=== PATIENT | male | born 1945 | race Caucasian/White ===

== ENCOUNTER → 2017-10-14 11:51 | Outpatient (CLI) | payer MEDICARE, OTHER, SELFPAY ==
--- NOTE | 2017-10-14 11:53 | US_ITS ---
STUDY: SUPERFICIAL ULTRASOUND - RIGHT CERVICAL REGION. REASON FOR EXAM: Male, 72 years old. Swelling of the right-sided and neck. TECHNIQUE: A superficial ultrasound was performed with real-time and static rodriguez-scale imaging. COMPARISON: None. FINDINGS: Multiple images were obtained. There is evidence of a 7 mm x 6 mm x 3 mm benign appearing lymph node. No mass lesion is seen. US/Head/Neck Soft Tissue IMPRESSION: 7 mm x 6 mm x 3 mm benign-appearing right cervical lymph node. No other abnormality is seen. Electronically Signed: Maxi Austin MD at 15:47 EST Tel [phone], Service support ,
--- NOTE | 2017-10-14 11:54 | CDU_ITS ---
Reason For Study: I65.23 Rt. Velocities/BP Lt. Velocities/BP Prox CCA 116/17.6 cm/sec. Prox CCA 115/13.4 cm/sec. Mid CCA 110/13.5 cm/sec. Mid CCA 104/10.2 cm/sec. Dist CCA 80.9/16.4 cm/sec. Dist CCA 65.6/9.82 cm/sec. Prox ICA 115/25.8 cm/sec. Prox ICA 71.5/11.1 cm/sec. Mid ICA 101/18.2 cm/sec. Mid ICA 55.1/14.9 cm/sec. Dist ICA 101/21.7 cm/sec. Dist ICA 75.0/22.3 cm/sec. Rt. ICA/CCA = 1.0. Lt. ICA/CCA = .7. Prox ECA 127 cm/sec. Prox ECA 132 cm/sec. Rt. Vert. 44.0/12.3 cm/sec. Lt. Vert. 63.9/7.62 cm/sec. Right Extracranial There is heterogeneous, irregular atherosclerotic plaque noted in the right common carotid artery. There is heterogeneous, irregular atherosclerotic plaque noted in the right internal carotid artery. There is homogeneous, smooth atherosclerotic plaque noted in the right external carotid artery. Antegrade flow is noted in the right vertebral artery. Left Extracranial There is heterogeneous, irregular atherosclerotic plaque noted in the left common carotid artery. There is heterogeneous, irregular atherosclerotic plaque noted in the left internal carotid artery. There is heterogeneous, irregular atherosclerotic plaque noted in the left external carotid artery. Antegrade flow is noted in the left vertebral artery. Procedure Carotid Duplex [id number]. The exam was diagnostic. Exam performed in department. Interpretation Summary Heavy plaque burden is noted in the internal carotid arteries bilaterally. Mild (<50%) stenosis right extracranial internal carotid. Mild (<50%) stenosis left extracranial internal carotid. Flow within the vertebral arteries is antegrade bilaterally. Ordering Physician: Jonny Serrato Referring Physician: Jonny Serrato Performed By: Myron Fink, RVT
== END ==
PROVIDERS: Family Provider Internal Medicine; PCP Internal Medicine; Visit Provider Internal Medicine
DX: I65.23 Occlusion and stenosis of bilateral carotid arteries (principal); R22.9 Localized swelling, mass and lump, unspecified
CPT/HCPCS: 76536; 93880

== ENCOUNTER 2018-05-18 09:08 | Day surgery (SDC) | payer MEDICARE, OTHER, SELFPAY ==
[2018-05-18] VITALS (10 sets, daily range): BP systolic 121–184; BP diastolic 75–87; PULSE 68–79; RESP 15–20; TEMP 36.1–36.9; O2SAT 94–99; BMI 25.9
--- NOTE | 2018-05-18 09:45 | CT_ITS ---
CT/Abdomen/Pelvis without Cont IMPRESSION: There is a 2 mm and 5 mm obstructive calculi in the midportion of the right ureter causing right hydronephrosis and right hydroureter with the right perinephric fat stranding as well as a small amount of fluid in the posterior right pararenal space. Nonobstructive right intrarenal calculus. Electronically Signed: Maxi Austin MD at 11:10 EDT Tel [phone], Service support ,
[2018-05-18] MEDS: 0.9% Normal Saline 1,000 ML 1000 ML IV (10:14)
[2018-05-18] MEDS: proMETHazine 25 MG/ML Syringe 6.25 MG IV (10:14)
[2018-05-18 10:17] LABS: Absolute Lymphocyte Count 0.97 X10^3/ul (0.83-4.51); Absolute Neutrophil Count 7.7 X10^3/uL (2.0-7.7); Basophil# 0.02 X10^3/uL; Basophil% 0.2 % (0-1); Eosinophil# 0.11 X10^3/uL; Eosinophils% 1.2 % (0-5); Hematocrit 46.8 % (40-54); Lymphocyte # 0.97 X10^3/ul (4.0); Lymphocyte % 10.2 % (19-41); Mean Corp Hgb Conc 34.2 g/gl (32-36); Mean Corpuscular Hgb 32.1 pg (27.0-32.0); Mean Corpuscular Volume 93.8 fL (80-94); Mean Platelet Vol. 10.1 fl (6.2-12.0); Monocyte# 0.62 X10^3/uL; Monocyte% 6.5 % (0-10); Neutrophil # 7.74 X10^3/uL (2.7-7.7); Neutrophil % 81.8 % (47-70); Platelet Count 158 K/mm3 (150-450); RBC Distribution Width CV 13.1 % (11.6-14.6); RBC Distribution Width SD 44.3 fl (35.1-43.9); Red Blood Count 4.99 M/mm3 (4.6-6.2); White Blood Count 9.5 K/mm3 (4.4-11.0)
[2018-05-18 10:19] LABS: POSITIVE COUNT NO; POSITIVE DIFFERENTIAL NO; POSITIVE MORPHOLOGY NO
[2018-05-18 10:23] LABS: Anion Gap 10 (5-15); BUN 39 mg/dL (7-18); BUN/Creat Ratio 16.5 RATIO (10-20); Calcium,Total 9.7 mg/dL (8.5-10.1); Chloride 104 mmol/L (98-107); Creatinine, Serum 2.37 mg/dL (0.70-1.30); EST Glomerular Filtration Rate 29 mL/min (>60); Est Glom Filt Rate - Afr Amer 35 mL/min (>60); Estimated Creatinine Clearance 27.81 ml/min; Glucose 231 mg/dL (74-106); Potassium 5.3 mmol/L (3.5-5.1); Sodium Level 138 mmol/L (136-145)
[2018-05-18] MEDS: HYDROmorphone 0.5 MG/0.5 ML SYRINGE IV (10:29)
[2018-05-18 10:30] LABS: Color, Urine Yellow (Yellow); Glucose, Dipstick 250 mg/dl (Normal); Ketone-Dipstick Negative (Negative); Leukocyte Esterase-Dipstick 100 /ul (Negative); Nitrite-Dipstick Negative (Negative); Occult Blood-Urine 150 /ul (Negative); Protein-Dipstick 30 mg/dl (Negative); Specific Gravity, Urine 1.015 (1.002-1.030); Urine Bilirubin Dipstick Negative (Negative); Urine Clarity Clear (Clear); Urine Urobilinogen Normal (Normal)
--- NOTE | 2018-05-18 10:36 | ED.VISSUMM ---
- ER Visit Summary Date of Service: 05/18/18 Chief Complaint: Abdominal pain History of Present Illness: The patient is a 73 M presenting with right lower quadrant abdominal pain. Patient woke up this morning with moderate right lower quadrant abdominal pain. He has nausea and vomiting. Denies blood in his emesis. He denies diarrhea or constipation. Denies urinary complaints. Denies fever. Denies chest pain or shortness of breath. Physical Examination: Vitals are stable. Patient is afebrile. Alert no acute distress. HEENT exam is unremarkable. Neck is supple. Lungs are clear and equal bilaterally. Heart is regular rate and rhythm. Abdomen is soft right lower quadrant tenderness. Extremities are unremarkable. Skin is warm and dry. No focal neurologic deficit. Remainder of exam is unremarkable. Emergency Department Course and Treatment: Patient given Dilaudid, Phenergan IV. CBC unremarkable. Chemistries show potassium 5.3, glucose 231, BUN 39, creatinine 2.37. Urinalysis shows 5-10 red blood cells, 0-[address] flank shows there is a 2 mm and 5 mm obstructive calculi in the midportion of the right ureter causing right hydronephrosis and right hydroureter with the right perinephric fat stranding as well as a small amount of fluid in the posterior right pararenal space. Nonobstructive right intrarenal calculus. Lab work was obtained from his command post superintendent Dr. Mancilla's office. His creatinine on May 04, 2018 was 1.[address] Discuss[address] with Dr. Levy and he will take him to the operating room. Patient and family advised of this plan. Disposition: To OR Impression: Urolithiasis, acute kidney injury This note was generated with [employer] dictation software. It may contain incorrect words, spelling, and punctuation that were not noted in review of the chart prior to signing ED Disposition - Plan for ED Patient: Chief Complaint: Abd Pain Referrals: Jonny Serrato [Primary Care Provider] -
[2018-05-18 10:44] LABS: Bacteria RARE /hpf (None Seen); Mucous, Urine RARE /hpf (<or=2+); Red Blood Cells-Urine 5-10 SEEN /hpf (0-5); Squamous Epithelial Cells - UA 0-5 SEEN /hpf (0-5); White Blood Cells 0-5 SEEN /hpf (0-5)
--- NOTE | 2018-05-18 11:39 | NURSING ---
CALLED DR CORRAL OFFICE [phone] MURRAY AND FOR RENAL PANEL. RENAL PANEL WAS FAXED, DR HAS DR CORRAL'S CELL NUMBER
--- NOTE | 2018-05-18 13:17 | NURSING ---
SURGERY DIANN KIDNEY STONE
[2018-05-18 14:36] LABS: Bedside Glucose 177 mg/dL (70-110)
--- NOTE | 2018-05-18 15:18 | PCM.HP.STD ---
Problem List (1) Kidney stone on right side Status: Acute History of Present Illness Date of Admission: 05/18/18 Chief Complaint: Right kidney stone, with hydronephrosis The patient is a 73 year old male with h/o heart disease presents to ER with severe right flank pain on plavix for heart stents, multiple. cr is elevated from hydronephrosis plan to bring to OR to place stent. Past Medical History Past Medical History (Chronic Problems): Chronic Problems COPD (chronic obstructive pulmonary disease) (Chronic) CKD (chronic kidney disease) stage 3, GFR 30-59 ml/min (Chronic) HTN (hypertension) (Chronic) DM2 (diabetes mellitus, type 2) (Chronic) PAD (peripheral artery disease) (Chronic) CAD (coronary artery disease) (Chronic) Medical History: Medical History (Last Updated 05/18/18 @ 15:21 by Joseph Levy MD) Kidney stone on right side N20.0 Allergies Opioids - Morphine Analogues Adverse Reaction (Verified 05/18/18 09:11) Vomiting Home Medications: Ambulatory Orders Medication Instructions Recorded Amlodipine [Norvasc] 2.5 mg PO BID 05/15/17 Ascorbic Acid [Vitamin C] 1,000 mg PO DAILY 05/15/17 Aspirin [Aspirin, Baby] 81 mg PO DAILY@0800 05/15/17 Cholecalciferol (Vitamin D3) 400 unit PO DAILY 05/15/17 [Vitamin D3] Clopidogrel Bisulfate [Clopidogrel] 75 mg PO DAILY 05/15/17 Diphenhydramine HCl [Allergy] 25 mg PO BID 05/15/17 Famotidine 20 mg PO BID 05/15/17 Folic Acid 0.8 mg PO DAILY@0800 05/15/17 Insulin Glargine,Hum.rec.anlog 15 unit SC QHS 05/15/17 [Lantus] Insulin Lispro [Humalog] 5 unit SC BREAKFAST 05/15/17 Insulin Lispro [Humalog] 5 unit SC LUNCH 05/15/17 Insulin Lispro [Humalog] 7 unit SC DINNER 05/15/17 Lisinopril [Zestril] 40 mg PO DAILY 05/15/17 Propranolol HCl 80 mg PO BID 05/15/17 Simvastatin 80 mg PO QHS 05/15/17 Vitamin E 400 unit PO DAILY 05/15/17 Acetaminophen [Tylenol Tablet] 650 mg PO Q4H PRN PRN tablet 05/17/17 Metformin HCl [Glucophage] 1,000 mg PO DAILY #0 05/17/17 Surgical History: - - ESWL, Coronary stents - multiple, right hernia Psychiatric History: No pertinent psych hx Lives: Spouse/ Significant Other Smoking Status: Former smoker Tobacco Use: Non-smoker Alcohol: None Drugs: None - *Family History Maternal History Items: - - No coronary artery disease Paternal History Items: - - No coronary artery disease Review of Systems Constitutional: Denies: Chills, Fever, Weight Change HEENT: Denies: Head Aches, Sinus Congestion, Sinus Drainage Cardiovascular: Denies: Chest Pain, Palpitations Respiratory: Denies: Cough, Shortness of breath at rest, Sputum production Gastrointestinal: Reports: Abdominal Pain. Denies: Nausea, Vomiting Genitourinary: Reports: Hematuria. Denies: Dysuria Musculoskeletal: Denies: Joint Pain, Joint Tenderness Skin: Denies: Rash, Wounds Neurological: Denies: Numbness, Tingling, Focal weakness Psychiatric: Denies: Anxiety, Depression, Homicidal Ideations, Suicidal Ideations Hematologic/ Lymphatic: Denies: Easy Bruising, Easy Bleeding VTE Information - Inpt Only VTE Present on Admission: No VTE Mechan Device Prophylaxis: SCD's Patient Problems: Active and Suspected Problems Kidney stone on right side (Acute) - Physical Exam General: Alert, Oriented x3, Cooperative HEENT: Atraumatic, PERRLA, EOMI, Normocephalic Neck: Supple, No JVD, Negative Carotid Bruits Lungs: Clear to auscultation, Normal air movement Cardiovascular: Regular rate, No murmurs Abdomen: Bowel Sounds Present, Soft, Non Tender Extremities: No edema, Capillary Refill Less than 3 Seconds Skin: No rashes, No breakdown Musculoskeletal: No Tenderness to Palpation of Joints or Extremities Neurological: Cranial nerves II-XII grossly intact Psych/Mental Status: Normal Affect, Appropriate Vital Signs Temp Pulse Resp BP Pulse Ox 97.0 F L 70 15 121/79 H 95 05/18/18 09:09 05/18/18 13:25 05/18/18 13:25 05/18/18 13:25 05/18/18 13:25 Oxygen Delivery Method Room Air Weight: 82.01 kg Body Mass Index (BMI) 25.9 Laboratory Tests Past 24 Hrs 05/18/18 05/18/1805/18/18 10:05 10:05 10:15 WBC 9.5 RBC 4.99 Hgb 16.0 Hct 46.8 MCV 93.8 MCH 32.1 H MCHC 34.2 RDW 13.1 RDW Differential 44.3 H Plt Count 158 MPV 10.1 Immature Gran % (Auto) 0.100 Neut % (Auto) 81.8 H Lymph % (Auto) 10.2 L [place] % (Auto) 6.5 Eos % (Auto) 1.2 Baso % (Auto) 0.2 Absolute Neuts (auto) 7.7 Absolute Lymphs (auto) 0.97 Total Counted Not Reportable Sodium 138 Potassium 5.3 H Chloride 104 Carbon Dioxide 24.0 Anion Gap 10 BUN 39 H Creatinine 2.37 H Estim Creat Clear Calc 27.81 Est GFR (MDRD) Af Amer 35 L Est GFR (MDRD) Non-Af 29 L BUN/Creatinine Ratio 16.5 Glucose 231 H Calcium 9.7 Urine Color Yellow Urine Clarity Clear Urine pH 6.0 Ur Specific [place] 1.015 Urine Protein 30 H Urine Glucose (UA) 250 H Urine Ketones Negative Urine Occult Blood 150 H Urine Nitrite Negative Urine Bilirubin Negative Urine Urobilinogen Normal Ur Leukocyte Esterase 100 H Urine RBC 5-10 SEEN Urine WBC 0-5 SEEN Ur Squamous Epith Cells 0-5 SEEN Urine Bacteria RARE Urine Mucus RARE POC Glucose 05/18/18 14:28 POC Glucose 177 H Assessment/Plan All Active Problems Kidney stone on right side (Acute) Chest pain (Acute) 73 yo male admitted from ER with stone blocking the right kidney with high grade obstruction, hydronephrosis and acute renal failure plan to to place a stent today, then home. my office with arrange for Right ESWL, will need to stop plavix for 7 days pre op will get cardiology OK from his field laboratory operator Dr Mario in [place].
--- NOTE | 2018-05-18 15:27 | PCM.DC.URO ---
Discharge Diet: No Restrictions, Light diet - advance as tolerated Discharge Activity: Return to Normal Activity, May Not Drive - for 2 days. Additional Activity Instructions:: f you have a catheter, remove on ___. If you have any problems after catheter is removed, call [phone] and ask for your doctor to be paged. Please be aware that pain medications may cause nausea. You should typically eat light foods as you take your pain medication. Pain medication may cause constipation, if this is a problem for you, please discuss with your doctor. Allergies/Adverse Reactions: Allergies Opioids - Morphine Analogues Adverse Reaction (Verified 05/18/18 09:11) Vomiting Medications to take at Discharge Amlodipine [Norvasc] 2.5 mg PO BID 05/15/17 Ascorbic Acid [Vitamin C] 1,000 mg PO DAILY 05/15/17 Aspirin [Aspirin, Baby] 81 mg PO DAILY@0800 05/15/17 Cholecalciferol (Vitamin D3) [Vitamin D3] 400 unit PO DAILY 05/15/17 Clopidogrel Bisulfate [Clopidogrel] 75 mg PO DAILY 05/15/17 Diphenhydramine HCl [Allergy] 25 mg PO BID 05/15/17 Famotidine 20 mg PO BID 05/15/17 Folic Acid 0.8 mg PO DAILY@0800 05/15/17 Insulin Glargine,Hum.rec.anlog [Lantus] 15 unit SC QHS 05/15/17 Insulin Lispro [Humalog] 5 unit SC BREAKFAST 05/15/17 Insulin Lispro [Humalog] 5 unit SC LUNCH 05/15/17 Insulin Lispro [Humalog] 7 unit SC DINNER 05/15/17 Lisinopril [Zestril] 40 mg PO DAILY 05/15/17 Propranolol HCl 80 mg PO BID 05/15/17 Simvastatin 80 mg PO QHS 05/15/17 Vitamin E 400 unit PO DAILY 05/15/17 Acetaminophen [Tylenol Tablet] 650 mg PO Q4H PRN PRN tablet 05/17/17 Metformin HCl [Glucophage] 1,000 mg PO DAILY #0 05/17/17 Ciprofloxacin [Cipro] 250 mg PO BID #6 tab 05/18/18 The following prescriptions were given: Ciprofloxacin [Cipro] 250 mg PO BID #6 tab Primary Care Physician: Jonny Serrato [Primary Care Provider] - Test Results: Test results from this visit will be discussed in further detail at your follow-up appointment, if applicable. Please Follow Up With: Joseph Levy MD When: please call to make an appointment.
[2018-05-18] MEDS: Cefazolin 2 GM in 0.9% Normal Saline 100 ML IV (16:22)
[2018-05-18] MEDS: Lidocaine Jelly 2% 20 ML Syringe (URO-JET) 20 APPLIC (16:37)
--- NOTE | 2018-05-18 16:46 | PCM.OPRPT ---
Problem List (1) Kidney stone on right side Status: Acute Report of Operation Date of Procedure: 05/18/18 Pre-Operative Diagnosis: right obstructing renal calculi Post-Operative Diagnosis: Same Surgery/Procedure Performed:: Cystoscopy, right retrograde pyelogram, right stent placement Description of Surgical Findings:: 73-year-old male taken back to the operating room at the smooth induction of [facility] local, he was placed in dorsal lithotomy position the penis testicles were prepped and draped in usual sterile fashion, went to the bladder with a 21 [place] rigid cystourethroscope, we infiltrated the urethra with lidocaine jelly, the bladder was normal, the prostate was normal, the room is normal the trigone is normal identify the right ureteral orifice advanced a wire up into the right kidney could see some stones under fluoroscopy I then placed a stent a 7 Ni[place]an by 26 cm stent on the right side once a stent was in good position then pulled the wire the stent, the stent coiled, we did a retrograde pyelogram as well during the stent placement. Patient bladder was emptied taken back to PACU good condition. Plan to set him up for right ESWL the treatment of the stone fragments want to be off his Plavix for at least 7 days for the treatment want to talk to his software design engineer. Type of Anesthesia:: General Drains: stent right 7fr x 26 cm - Admit VTE Documentation VTE Present on Admission: No VTE Mechan Device Prophylaxis: SCD's
== END 2018-05-18 18:05 | disposition home or self-care (01) ==
LOC: ED 12:46 → SDC 13:23 → AC 13:24
PROVIDERS: Emergency Provider Emergency Medicine; Family Provider Internal Medicine; PCP Internal Medicine; Visit Provider Urology
PROC: (CPT 52332; principal; 2018-05-18 12:15)
DX: N13.2 Hydronephrosis with renal and ureteral calculous obstruction (principal); I25.10 Atherosclerotic heart disease of native coronary artery without angina pectoris; J44.9 Chronic obstructive pulmonary disease, unspecified; E11.22 Type 2 diabetes mellitus with diabetic chronic kidney disease; I12.9 Hypertensive chronic kidney disease with stage 1 through stage 4 chronic kidney disease, or unspecified chronic kidney disease; N18.3 Chronic kidney disease, stage 3 (moderate); E11.51 Type 2 diabetes mellitus with diabetic peripheral angiopathy without gangrene; Z79.899 Other long term (current) drug therapy; Z79.4 Long term (current) use of insulin; Z79.02 Long term (current) use of antithrombotics/antiplatelets; Z79.82 Long term (current) use of aspirin; Z87.891 Personal history of nicotine dependence
CPT/HCPCS: 52332; 74176; 76000; 80048; 81001; 82962; 85025; 99283; J7030; J7120; A4216; C1874

== ENCOUNTER 2018-06-08 12:38 | Day surgery (SDC) | payer MEDICARE, OTHER, SELFPAY ==
--- NOTE | 2018-06-08 12:50 | RAD_ITS ---
STUDY: X-RAY - ABDOMEN/PELVIS REASON FOR EXAM: Male, 73 years old. Pre-ESWL. TECHNIQUE: Two AP supine views of the abdomen and pelvis. COMPARISON: Comparison is made with prior CT scan the abdomen and pelvis May 18, 2018. FINDINGS: There is a moderate amount of colonic fecal material. A right-sided double-J stent catheter is seen with the proximal tip in the right renal pelvis and distal tip of the right-sided bladder. There is a 6.4 mm calculus in the proximal portion of the right ureter just distal to the ureteropelvic junction. There are calcified phleboliths in the pelvis. Normal visualized osseous structures. RAD/Abdomen Single View IMPRESSION: 6.4 mm calculus in the proximal portion of the right ureter. Right-sided double-J stent catheter. Electronically Signed: Maxi Austin MD at 13:13 EDT Tel [phone], Service support ,
[2018-06-08 13:21] VITALS: BP 148/70; PULSE 62; RESP 18; TEMP 36.6; O2SAT 100; BMI 25.7
[2018-06-08 13:36] LABS: Bedside Glucose 130 mg/dL (70-110)
[2018-06-08] MEDS: Cefazolin 2 GM in 0.9% Normal Saline 100 ML IV (15:27)
--- NOTE | 2018-06-08 16:05 | DCINST_ITS ---
Discharge Diet: No Restrictions, Light diet - advance as tolerated Discharge Activity: Return to Normal Activity, May Not Drive - for 2 days. Additional Activity Instructions:: Please be aware that pain medications may cause nausea. You should typically eat light foods as you take your pain medication. Pain medication may cause constipation, if this is a problem for you, please discuss with your doctor. Allergies/Adverse Reactions: Allergies Opioids - Morphine Analogues Adverse Reaction (Verified 05/30/18 15:56) Vomiting Medications to take at Discharge Amlodipine [Norvasc] 2.5 mg PO BID 05/15/17 Ascorbic Acid [Vitamin C] 1,000 mg PO DAILY 05/15/17 Aspirin [Aspirin, Baby] 81 mg PO DAILY@0800 05/15/17 Cholecalciferol (Vitamin D3) [Vitamin D3] 400 unit PO DAILY 05/15/17 Clopidogrel Bisulfate [Clopidogrel] 75 mg PO DAILY 05/15/17 Diphenhydramine HCl [Allergy] 25 mg PO BID 05/15/17 Famotidine 20 mg PO BID 05/15/17 Folic Acid 0.8 mg PO DAILY@0800 05/15/17 Insulin Glargine,Hum.rec.anlog [Lantus] 15 unit SC QHS 05/15/17 Insulin Lispro [Humalog] 5 unit SC BREAKFAST 05/15/17 Insulin Lispro [Humalog] 5 unit SC LUNCH 05/15/17 Insulin Lispro [Humalog] 7 unit SC DINNER 05/15/17 Lisinopril [Zestril] 40 mg PO DAILY 05/15/17 Propranolol HCl 80 mg PO BID 05/15/17 Simvastatin 80 mg PO QHS 05/15/17 Vitamin E 400 unit PO DAILY 05/15/17 Acetaminophen [Tylenol Tablet] 650 mg PO Q4H PRN PRN tablet 05/17/17 Metformin HCl [Glucophage] 1,000 mg PO DAILY 05/30/18 Primary Care Physician: Jonny Serrato [Primary Care Provider] - Test Results: Test results from this visit will be discussed in further detail at your follow- up appointment, if applicable. Please Follow Up With: Joseph Levy MD When: please call to make an appointment.
--- NOTE | 2018-06-08 16:14 | PCM.OPRPT ---
Report of Operation Date of Procedure: 06/08/18 Pre-Operative Diagnosis: Right kidney stone status post stent placement for obstructing stone Post-Operative Diagnosis: Same Surgery/Procedure Performed:: Right extracorporeal shockwave lithotripsy, cystoscopy and right stent removal Description of Surgical Findings:: 73-year-old male who presented with obstructing stone he underwent placement of a stent today were discussed could proceed with right shockwave lithotripsy and treatment of the stone fragments blocking the kidney and possible removal of the stent. Procedure note patient taken back to the operating room the smooth induction of general anesthesia he was placed supine on the table we then localize the stone in the F2 focal point of the lithotripter machine in the right kidney that stone at the UPJ fairly large stone about 7 mm in size we start shockwave lithotripsy at a rate of 90 power ranging from 1-7 and after about 1500 shockwaves a stone broke up fairly quickly we then treated the other small fragments in the lower pole of the right kidney continued with the treatment the stone broke up really well. We then prepped and draped the penis and testicles in usual sterile fashion went in with a flexible cystoscope get into the bladder once in the bladder identified the stent coming from the right kidney and the ureteral orifice I grabbed used a grasper to grab the stent and extracted it from the bladder. The bladder was then drained. That we stop and treatment of the shockwave machine the patient has anesthetic was reversed is taken back to the PACU good condition plan to see him back in a few weeks with a KUB. Type of Anesthesia:: General Drains: none - Admit VTE Documentation VTE Present on Admission: No VTE Mechan Device Prophylaxis: SCD's
[2018-06-08 16:21] VITALS: BP 148/70; BP 148/82; PULSE 76; RESP 16; TEMP 36.2; O2SAT 95
[2018-06-08 16:30] VITALS: BP 148/70; BP 165/87; PULSE 65; RESP 16; O2SAT 92
[2018-06-08 16:45] VITALS: BP 148/70; BP 158/81; PULSE 66; RESP 16; O2SAT 92
[2018-06-08 16:58] VITALS: BP 148/70; BP 157/85; PULSE 66; RESP 16; TEMP 36.2; O2SAT 99
[2018-06-08 17:00] LABS: Bedside Glucose 98 mg/dL (70-110)
[2018-06-08 17:20] VITALS: BP 132/76; BP 148/70; PULSE 72; RESP 18; TEMP 36.8
== END 2018-06-08 17:31 | disposition home or self-care (01) ==
LOC: SDC 12:40 → AC 12:41
PROVIDERS: Family Provider Internal Medicine; PCP Internal Medicine; Visit Provider Urology
PROC: (CPT 50590; principal; 2018-06-08 14:50)
DX: N20.0 Calculus of kidney (principal); E11.22 Type 2 diabetes mellitus with diabetic chronic kidney disease; N18.3 Chronic kidney disease, stage 3 (moderate); E78.00 Pure hypercholesterolemia, unspecified; K21.9 Gastro-esophageal reflux disease without esophagitis; Z79.899 Other long term (current) drug therapy; Z79.02 Long term (current) use of antithrombotics/antiplatelets; Z79.82 Long term (current) use of aspirin; Z79.4 Long term (current) use of insulin; I25.10 Atherosclerotic heart disease of native coronary artery without angina pectoris; I25.2 Old myocardial infarction; I12.9 Hypertensive chronic kidney disease with stage 1 through stage 4 chronic kidney disease, or unspecified chronic kidney disease; Z87.891 Personal history of nicotine dependence; J44.9 Chronic obstructive pulmonary disease, unspecified; Z95.5 Presence of coronary angioplasty implant and graft; E11.51 Type 2 diabetes mellitus with diabetic peripheral angiopathy without gangrene
CPT/HCPCS: 50590; 74018; 82962; J7120; J2405

== ENCOUNTER → 2018-06-27 14:00 | Outpatient (CLI) | payer MEDICARE, OTHER, SELFPAY ==
--- NOTE | 2018-06-27 14:11 | RAD_ITS ---
STUDY: X-RAY - ABDOMEN/PELVIS REASON FOR EXAM: Male, 73 years old. Flank pain TECHNIQUE: Two AP supine views of the abdomen and pelvis. COMPARISON: 06/08/2018 FINDINGS: Normal visualized lung bases. No demonstrated renal stones. However, one could be obscured by the overlying bowel gas and stool. There is a moderate amount of colonic fecal material. There is no demonstrated free abdominal air. The visualized liver, spleen and kidneys are grossly normal in size and morphology. There are calcified phleboliths in the pelvis. Normal visualized osseous structures. RAD/Abdomen Single View IMPRESSION: No acute findings Electronically Signed: Tanner Oseguera MD at 13:50 EDT , Service support ,
== END ==
PROVIDERS: Family Provider Internal Medicine; PCP Internal Medicine; Referring Provider Urology; Visit Provider Urology
DX: N20.0 Calculus of kidney (principal)
CPT/HCPCS: 74018

== ENCOUNTER → 2018-08-18 09:25 | Outpatient (CLI) | payer MEDICARE, OTHER, SELFPAY ==
--- NOTE | 2018-08-18 11:35 | PFT ---
INTRODUCTION: The patient is a 73-year-old male that presents for pulmonary function testing secondary to a diagnosis of dyspnea. Respiratory therapy reports good patient effort. Bronchodilators were used during testing. INTERPRETATION: Forced expiration spirometry demonstrates no evidence of a large airways obstructive ventilatory defect. There was no significant response to aerosolized bronchodilators. Spirograms are of good quality and do not plateau indicating slow emptying of the lungs. Body plethysmography was performed and reveals a decreased TLC to 4.39 L, 68% of predicted, indicative of a moderate restrictive ventilatory defect. The remainder of the lung volumes are symmetrically reduced. Diffusing capacity by single breath CO was also reduced at 61% of predicted. IMPRESSION: These pulmonary function studies demonstrate the presence of a moderate restrictive ventilatory defect with associated symmetric reduction in diffusing capacity. There are no previous pulmonary function studies available for comparison.
== END ==
PROVIDERS: Family Provider Internal Medicine; PCP Internal Medicine; Referring Provider Internal Medicine; Visit Provider Internal Medicine
DX: J44.9 Chronic obstructive pulmonary disease, unspecified (principal)
CPT/HCPCS: 94060; 94726; 94729

== ENCOUNTER → 2018-08-30 12:19 | Outpatient (CLI) | payer MEDICARE, OTHER, SELFPAY ==
--- NOTE | 2018-08-30 12:27 | CT_ITS ---
STUDY: CT CHEST WITHOUT CONTRAST REASON FOR EXAM: Male, 73 years old. Restrictive lung disease. Previous smoker. RADIATION DOSAGE (If Supplied By Facility): CTDIvol = ( 14.96 ) mGy, DLP = ( 571.90 ) mGycm TECHNIQUE: Transaxial imaging was performed without the administration of intravenous contrast material. Individualized dose optimization techniques were used for this CT. COMPARISON: None. FINDINGS: TRACHEA, THYROID, ESOPHAGUS: No tracheomalacia,stricture or wall thickening. Thyroid and esophagus are normal CARDIOVASCULAR SYSTEM: The thoracic aorta is grossly within normal limits. The pulmonary trunk and the left pulmonary arteries are also grossly within normal limits. The heart is not enlarged. There are no vascular developmental anomalies. SHELLY AND LYMPH NODES: No hilar masses and no mediastinal, hilar, axillary or supraclavicular adenopathy LUNGS, LOW-ATTENUATION: No traction bronchiectasis, honeycombing,emphysema, lung cysts or cavitations LUNGS, HIGH ATTENUATION: A 1 cm spiculated density in the right upper lobe. This was not present on the last examination of May 15, 2017 LUNGS, MOSAIC/CRAZY PAVING: Not evident PLEURA AND CHEST WALL: No plural effusions, pneumothoraces,rib fractures or any osteolytic/osteoblastic changes . The soft tissue chest wall including the breasts are normal UPPER ABDOMEN: Unremarkable .. CT/Chest without Contrast IMPRESSION: A new 1 cm spiculated density in the right upper lobe. A malignant neoplastic process is suspected. Confirmation with a PET CT scan suggested N.B. : The above information has been verbally conveyed by Jayjay Blunt MD to [facility], , on 08/31/2018 05:06:44 (ET). Electronically Signed: Jayjay Blunt MD at 4:52 EST Tel , Service support ,
--- OUTSIDE RECORDS SUMMARY | 2018-12-01 22:15 | XMS RPT_ITS ---
:1945 Author Organization OHIP Support Name Relationship Address Phone TOMA MONTALVO Unavailable Unavailable + [place] [address] R Unavailable Unavailable Unavailable UMSTEAD, DAMIAN Unavailable [address] + [place] [address] TOMA MONTALVO Unavailable Unavailable + R Unavailable Unavailable Unavailable UMSTEAD, DAMIAN Unavailable [address] + [place] [address] Umstead, Damian Unavailable Unavailable + Toma Montalvo Unavailable . + [place] [address] R Unavailable Unavailable Unavailable UMSTEAD, DAMIAN Unavailable [address] + [place] [address] Umstead, Damian Unavailable Unavailable + R Unavailable Unavailable Unavailable UMSTEAD, DAMIAN Unavailable [address] + [place] [address] R Unavailable Unavailable Unavailable UMSTEAD, DAMIAN Unavailable [address] + [place] [address] R Unavailable Unavailable Unavailable UMSTEAD, DAMIAN Unavailable [address] + [place] [address] Umstead, Damian Unavailable Unavailable + R Unavailable Unavailable Unavailable UMSTEAD, DAMIAN Unavailable [address] + [place] [address] R Unavailable Unavailable Unavailable UMSTEAD, DAMIAN Unavailable [address] + [place] [address] Umstead, Damian Unavailable Unavailable + R Unavailable Unavailable Unavailable UMSTEAD, DAMIAN Unavailable [address] + [place] [address] Umstead, Damian Unavailable Unavailable + Umstead, Damian Unavailable Unavailable + R Unavailable Unavailable Unavailable UMSTEAD, DAMIAN Unavailable [address] + [place] [address] Umstead, Damian Unavailable Unavailable + Care Team Providers Name Role Phone Randi Mancilla Attending Unavailable Katsaros, Peter Referring Unavailable Katsaros, Peter Primary Care Unavailable LaurentRandi Attending Unavailable Katsaros, Peter Referring Unavailable Katsaros, Peter Primary Care Unavailable LaurentRandi Attending Unavailable Katsaros, Peter Referring Unavailable Katsaros, Peter Primary Care Unavailable Katsaros, Peter Attending Unavailable Katsaros, Peter Referring Unavailable Katsaros, Peter Primary Care Unavailable Katsaros, Peter Attending Unavailable Katsaros, Peter Referring Unavailable Katsaros, Peter Primary Care Unavailable Katsaros, Crow Attending Unavailable Katsaros, Peter Referring Unavailable Katsaros, Peter Primary Care Unavailable Katsaros, Crow Attending Unavailable Katsaros, Peter Referring Unavailable Katsaros, Peter Primary Care Unavailable NOA ALFORD Attending Unavailable SONY SEVILLA Attending Unavailable SONY SEVILLA Referring Unavailable Derrick Morales D.O. Attending Unavailable JosefinasarosCrow Referring Unavailable Katsaros, Crow Attending Unavailable Josefinasaros, Peter Referring Unavailable Katsaros, Peter Primary Care Unavailable Derrick Morales D.O. Attending Unavailable Derrick Morales D.O. Referring Unavailable Katsaros, Peter Primary Care Unavailable Katsaros, Peter Primary Care Unavailable Joseph Levy Attending Unavailable MildredJoseph Attending Unavailable MildredJoseph Referring Unavailable Katsaros, Peter Primary Care Unavailable MildredJoseph Attending Unavailable MildredJoseph Referring Unavailable Katsaros, Peter Primary Care Unavailable Katsaros, Peter Attending Unavailable Katsaros, Peter Referring Unavailable Katsaros, Peter Primary Care Unavailable Derrick Morales D.O. Attending Unavailable Katsaros, Peter Referring Unavailable Katsaros, Crow Attending Unavailable Katsaros, Peter Referring Unavailable Katsaros, Peter Primary Care Unavailable Katsaros, Peter Attending Unavailable Crow Serrato Referring Unavailable Crow Serrato Primary Care Unavailable PROBLEMS PROBLEMS DATE TYPE CONDITION / CODE ATTENDING STATUS SOURCE 09/30/2018 Unknown R06.02 - Dominguez Amaya Shortness of D.O. [facility] breath / Hospital R06.02(ICD-10) Repository 08/10/2018 Admitting Dyspnea, Crow Serrato [facility] Diagnosis unspecified / System R06.00(ICD-10) Repository 06/27/2018 Unknown N20.0 - Calculus MildredJoseph Active [place] [facility] kidney / [facility] N20.0(ICD-10) Hospital Repository 06/06/2018 Admitting Chest pain, Crow Serrato [facility] Diagnosis unspecified / System R07.9(ICD-10) Repository 06/06/2018 Admitting Shortness of Crow Serrato [facility] Diagnosis breath / System R06.02(ICD-10) Repository 05/04/2018 Admitting Chronic kidney Laurent, Datjose [facility] Diagnosis disease, stage 3 System (moderate) / Repository N18.3(ICD-10) PROCEDURES PROCEDURES No Procedure Records FoundRESULTS RESULTS 6 MINUTE WALK TEST Observed: 09/30/2018 Status: F Source: [place] 1:08 PM [facility] REPOSITORY [facility] Pulmonary Services/Neurology [address] [address] MR#: [id number] Acct: [id number] Name: ASL AGUILAR Rep #: [id number] : 1945 73 From: Derrick Morales DO Referring Dr: Derrick Morales D.O. Date: Ordering Dr: Sex: M C Location: PSN PSN 6 Minute Walk Test - 6 Minute Walk Test 6 Minute Walk Test: 6 Minute Walk Test PSN:6-Minute Walk Test Start: 09/30/18 11:19 Freq: Status: Active Protocol: RESP.6MINW Document 09/30/18 10:45 HG (Rec: 09/30/18 11:23 HG [id number]) 6 Minute Walk Test Date Performed 09/30/18 Time Performed 10:45 Height 5 ft 10 in Weight: 180 lb Weight in Pounds 180.[address]: Derrick Morales Assistive device used: None Pre-test Oxygen Delivery Method Room Air Pulse Ox (%) 97 Pulse Rate (60-100 beats/min) 61 Dyspnea Cici Scale (0-10) 2 Exertion Cici Scale (6-20) 8 1st minute Oxygen Delivery Method Room Air Pulse Ox (%) 97 Pulse Rate (60-100 beats/min) 60 2nd minute Oxygen Delivery Method Room Air Pulse Ox (%) 97 Pulse Rate (60-100 beats/min) 74 3rd minute Oxygen Delivery Method Room Air Pulse Ox (%) 93 Pulse Rate (60-100 beats/min) 75 4th minute Oxygen Delivery Method Room Air Pulse Ox (%) 92 Pulse Rate (60-100 beats/min) 75 5th minute Oxygen Delivery Method Room Air Pulse Ox (%) 96 Pulse Rate (60-100 beats/min) 73 6th minute Oxygen Delivery Method Room Air Pulse Ox (%) 96 Pulse Rate (60-100 beats/min) 73 Post-test Oxygen Delivery Method Room Air Pulse Ox (%) 97 Pulse Rate (60-100 beats/min) 71 Dyspnea Cici Scale (0-10) 2 Exertion Cici Scale (6-20) 11 Full Laps Walked 17 Partial Lap, Number of Tiles Walked 0 Total Distance Walked (ft) 1003 - Interpretation Interpretation: The patient ambulated 1003 feet over the course of 6 minutes beginning on room air without assistive devices or breaks. Pretesting oxygen saturation was noted to be 97% on room air. With ambulation, the jorgito oxygen saturation was 92%. This represents a significant exertional oxygen desaturation. - Recommendations Recommendations: There is no indication for the use of supplemental oxygen at this time. However, close interval follow-up is recommended, given the degree of oxygen desaturation noted during this study. 09/30/18 1308 <Electronically signed by Derrick Mroales DO> Date Derrick Morales DO CC: Date Dictated: 09/30/18 1307 Date Transcribed: 09/30/181306 Agronomy Specialist: Derrick Morales DO Signed PET/CT TUMOR BASE Observed: 09/26/2018 Status: F Source: [place] -[place] INIT 7:18 AM [facility] REPOSITORY [facility] Imaging Services [address] [place] [address] PET/CT Tumor Base -Thigh Init MR#: [id number] Acct: [id number] Name: SAL AGUILAR Rep #: [id number] : 1945 M 73 From: Sony Mario PCP: Crow Serrato Status: REG CLI Study: PET/CT Tumor Base -Thigh Init Date of Exam: 09/26/18 Exam# [id number] Ordering Dr: Crow Serrato EXAMINATION: FDG PET CT INDICATIONS: A 73-year-old male with reported history of pulmonary nodularity. COMPARISON EXAMINATION: CT of the chest report dated 08/30/18. TECHNIQUE: Following the intravenous administration of 14.88 mCi of F-18 deoxyglucose via the left forearm, multiplanar image acquisitions of the neck, chest, abdomen and pelvis to level of mid thigh, obtained at one hour post radiopharmaceutical administration contemporaneously interpreted with the current CT of the neck, chest, abdomen and pelvis to level of mid thigh, dated 09/26/[address] of the chest report dated 08/30/18 reveal: SERUM GLUCOSE LEVEL: 84 mg/dl. HEIGHT: 70 inches. WEIGHT: 180 lbs. FINDINGS: 1. There is no quantitative scintigraphic evidence of abnormal increased glucose metabolism within the context of the right hemithorax pulmonary parenchyma, right upper lobe to correlate with anatomic changes defined on CT of the chest report dated 08/30/18 2. Normal physiologic distribution of the radiopharmaceutical is apparent in the hepatic (*) and splenic parenchyma, both renal units, bladder and visualized intestinal tract. There is an asymmetric decrease in glucose metabolism manifest in the posteromedial aspect of the left cerebellar hemisphere. There is otherwise preserved glucose concentration noted in the remaining cerebral cortical and subcortical structures. Diffuse intestinal tract activity is noted throughout all four quadrants of the abdominal-pelvic retroperitoneum, mesentery consistent with normal physiologic distribution of the radiopharmaceutical extending to the level of the distal rectal vault. Pertinent CT findings are as follows. CHEST: Bilateral subcentimeter axillary soft tissue densities demonstrate no evidence of facilitated glucose metabolism. Coronary arterial calcification is observed. Atherosclerotic calcification is defined in the thoracic aorta without evidence of dilatation, aneurysm formation. Subcentimeter mediastinal soft tissue densities are ametabolic. ABDOMEN AND PELVIS: Atherosclerotic calcification is defined in the abdominal aorta without evidence of dilatation, aneurysm formation. Pelvic arterial calcification is observed. Bilateral fat-containing inguinal hernias are noted. Right- left inguinal soft tissue densities are non-glucose avid. Calcifications are defined within the prostate gland without evidence of quantitatively significant enhanced glucose metabolism. SKELETAL: Degenerative changes defined in the cervical, thoracic and lumbar spine demonstrate no evidence for glucose hypermetabolism. PET/PET/CT Tumor Base -Thigh Init IMPRESSION: 1. NEGATIVE EXAMINATION. There is no quantitative scintigraphic evidence of abnormal increased glucose metabolism within the context of the right hemithorax pulmonary parenchyma, right upper lobe to correlate with anatomic changes defined on CT of the chest report dated 08/30/18. 2. Anatomic stability may be ensured in the nonglucose avid right hemithorax pulmonary parenchyma, right upper lobe parenchymal density with repeat CT of the thorax in three-six months. (Martine, Seminars in Thoracic and Cardiovascular Surgery 14:292, 2002). 3. Prominent intestinal tract distribution of radiopharmaceutical is most consistent with physiologic concentration of the radiotracer. If intraluminal soft tissue mass formation is a diagnostic consideration, correlation with CT of the abdomen and pelvis with intravenous contrast is recommended. (Domarva et al, Journal of Nuclear Medicine, 30:S276, 2003). Electronic Signature Sony Mario D.O. Electronically Signed: Sony Mario DO at 23:32 EST Tel , Service support , CC: Crow Serrato Agronomy Specialist: Signed RF FLUOROSCOPY UNLISTED Observed: 09/23/2018 Status: F Source: [facility] PROCEDURE 12:00 PM SYSTEM REPOSITORY Patient Name: SAL AGUILAR Fluoroscopy Exam Date/Time 09/23/2018 10:20:00 EST Exam RF Fluoroscopy Unlisted Procedure Ordering Physician CROW SERRATO Accession Number [id number] CTP4 Codes 20471 () Reason For Exam SNIFF TEST DYSPNEA, PULMONARY NODULE Report SNIFF TEST: CLINICAL INDICATIONS: Dyspnea when supine. Elevated right hemidiaphragm. FLUOROSCOPY TIME: 0.37 minutes FLUOROSCOPIC IMAGES: 3 fluoroscopic spot images/ 4 cine loops were obtained. FINDINGS: Fluoroscopic evaluation of diaphragmatic movement was performed. Both hemidiaphragms move in unison. There is mildly decreased excursion of the right hemidiaphragm upon respiration. There is normal excursion of the left hemidiaphragm upon respiration. IMPRESSION: Mildly decreased excursion of the right hemidiaphragm. Normal excursion of the left hemidiaphragm. Report Dictated on Final Dictating Physician: MD GLOVER HARLAN Signed Date and Time: 09/23/2018 1:30 pm Signed by: MD GLOVER HARLAN Transcribed Date and Time: 09/23/2018 1:31 PULMONARY VISIT REPORT Observed: 09/23/2018 Status: F Source: [place] 7:21 AM [facility] REPOSITORY [facility] Pulmonary Medicine of [address] [place] [address] OFFICE VISIT Date of Service: 09/22/18 MR#: [id number] Acct: [id number] Name: SAL AGUILAR Rep #: [id number] : 1945 Provider: Derrick Morales D.O. Age/Sex: 73/M Location: [facility] Status: Signed Assessment AND Plan 1. SOB (shortness of breath) R06.02 Plan The patient presented to our office today with undifferentiated shortness of breath. His did report that he was previously diagnosed with COPD/emphysema. However, his prior pulmonary function studies completed in [place] multiple years ago revealed findings more concerning for asthma and more recently, his PFTs completed in August here at [facility] revealed a restrictive ventilatory process with no evidence of a fixed large airways obstruction. While the patient has been utilizing albuterol in his home environment, he reports no subjective improvement in his dyspnea complaints with its use. His recent CT chest did not reveal any significant emphysematous findings. The patient is currently followed by a chemical production technician in [place] due to a history of coronary artery disease. I do not have any echocardiograms on file for review. Therefore, it is uncertain whether the patient has underlying systolic or diastolic dysfunction and/or pulmonary hypertension. He reportedly had an abnormal walk test done in his PCPs office recently, raising the concern for exertional hypoxemia. At this time, I would first begin by obtaining a formal 6-minute walk test in our pulmonary lab to reassess for any exertional hypoxemia, that may warrant treatment with supplemental oxygen. I will also attempt to obtain any prior surface echocardiograms and/or cardiac catheterizations that were performed in [place] recently. If the patient has not had a recent echocardiogram, he will need to have one done. The patient is going to have a very short interval follow- up office visit with me so that I can review the results of his PET scan, sniffed test and 6-minute walk test to formulate a plan moving forward. Orders Orders: 2. RENEE (obstructive sleep apnea) G47.33 Plan The patient has known obstructive sleep apnea, diagnosed a multitude of years ago, for which he has been noncompliant with the use of nocturnal positive pressure ventilation. My concern is that untreated obstructive sleep apnea over the long-term could potentially lead to the development of pulmonary hypertension and subsequent dyspnea. I did explain the importance of undergoing a re-titration polysomnogram, given his history of RENEE. While the patient is reluctant to agree to testing, he said that he will consider it further and render a final answer at his follow-up office visit. 3. Lung nodule R91.1 Plan The patient recently had a CT chest performed which revealed a 1 cm pulmonary nodule in the right upper lobe. Given the patient's prior smoking history, he is currently scheduled to undergo a PET scan in the upcoming week. My concern is that given the size of the nodule, and the sensitivity for PET scans detecting malignancy with lesions less than or equal to 1 cm in size, that his PET scan could potentially yield an early false negative result. If the patient's PET scan is in fact negative, the patient will need to be followed longitudinally with repeat imaging studies. 4. Coronary artery disease involving resighini coronary artery of resighini heart with unstable angina pectoris I25.110 Plan The patient has known coronary artery disease, for which he follows with Dr. Mario of cardiology. We will attempt to obtain his prior cardiac records from [place] as noted above. It is possible that the patient's exertional dyspnea may be cardiac in nature as well. If he has not had a recent echocardiogram, one will need to be obtained. 5. 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 Plan Detail Other Medications New: Follow Up 2 Weeks (DMB) HPI HPI Comments Details: The patient is a 73-year-old male who presents to the clinic today in referral for evaluation of COPD. The patient's family is present at today's office visit. The patient is currently being followed by Dr. Crow Serrato at [facility]. 16 pages of outside medical records were personally reviewed at today's office visit. The patient reports a smoking history that includes upwards of 2 packs/day x 30 years. The patient quit smoking completely in 1983. He reports that he was previously told that he had COPD and emphysema after having been evaluated by a anchorer in [place]. However, pulmonary function studies completed in July 2013 at [facility] revealed small airways obstruction with immediate response to aerosolized bronchodilators along with a moderate restrictive ventilatory defect. The patient also completed a walking oximetry study at that time as well which revealed a pretesting oxygen saturation on room air of 96% with an ambulatory jorgito oxygen saturation of 93%. In addition, the patient reports having been diagnosed with obstructive sleep apnea previously, however, he is currently noncompliant with the use of nocturnal noninvasive positive pressure ventilation. Per documentation received from the patient's primary care provider, the patient reportedly had an abnormal in office walking oximetry study at his last office visit, during which time he apparently desaturated to 88%. In addition to the aforementioned, the patient also reportedly has a history of coronary artery disease and follows with Dr. Mario of cardiology. The patient recently repeated pulmonary function studies here at [facility] in August 2018 due to the presence of dyspnea. Pulmonary function studies demonstrated the presence of a moderate restrictive ventilatory defect with an associated symmetric reduction in diffusing capacity. The patient had no evidence of a fixed large airways obstructive ventilatory defect. In follow-up, a CT chest without contrast was then obtained, which revealed no hilar or mediastinal adenopathy. There was, nevertheless, evidence of a 1 cm spiculated density in the right upper lobe, which was not present on CTA chest from May 2017. Today, the patient endorses the presence of exertional shortness of breath and a vague right-sided chest discomfort, which appears to be unrelated to exertion. A chest x-ray in our system from 2016 did reveal evidence of a mild to moderate elevation in the patient's right hemidiaphragm. He states that he is currently scheduled to undergo a sniff test tomorrow at [facility]. He also states that he has a PET scan scheduled for Wednesday. He reports no significant chest tightness or wheezing. He does report an occasional nonproductive cough. He does not currently utilize supplemental oxygen at his baseline. He does have access to a pro-air rescue inhaler in his home environment. However, he reports no subjective improvement in his complaints of dyspnea with its use. Intake Vital Signs09/22/18 Height 5 ft 10 in 09/22/18 Weight: 180 lb Intake Visit Reasons: COPD Accompanied by: Family / Other Allergies hydromorphone [From Dilaudid] Allergy (Severe, Verified 09/22/18 10:27) Unknown melon Adverse Reaction (Severe, Verified 09/22/18 10:27) Unknown promethazine [From Phenergan] Adverse Reaction (Severe, Verified 09/22/18 10:27) Unknown Opioids - Morphine Analogues Adverse Reaction (Verified 09/22/18 09:55) Vomiting Medications Amlodipine [Norvasc] 2.5 mg PO BID 05/15/17 [History Confirmed 09/22/18] Ascorbic Acid [Vitamin C] 1,000 mg PO DAILY 05/15/17 [History Confirmed 09/22/18] Aspirin [Aspirin, Baby] 81 mg PO DAILY@0800 05/15/17 [History Confirmed 09/22/18] Cholecalciferol (Vitamin D3) [Vitamin D3] 400 unit PO DAILY 05/15/17 [History Confirmed 09/22/18] Clopidogrel Bisulfate [Clopidogrel] 75 mg PO DAILY 05/15/17 [History Confirmed 09/22/18] Diphenhydramine HCl [Allergy] 25 mg PO BID 05/15/17 [History Confirmed 09/22/18] Famotidine 20 mg PO BID 05/15/17 [History Confirmed 09/22/18] Folic Acid 0.8 mg PO DAILY@0800 05/15/17 [History Confirmed 09/22/18] Insulin Glargine,Hum.rec.anlog [Lantus] 15 unit SUBCUT QHS 05/15/17 [History Confirmed 09/22/18] Insulin Lispro [Humalog] 5 unit SUBCUT BREAKFAST 05/15/17 [History Confirmed 09/22/18] Insulin Lispro [Humalog] 5 unit SUBCUT LUNCH 05/15/17 [History Confirmed 09/22/18] Insulin Lispro [Humalog] 7 unit SUBCUT DINNER 05/15/17 [History Confirmed 09/22/18] Lisinopril [Zestril] 40 mg PO DAILY 05/15/17 [History Confirmed 09/22/18] Propranolol HCl 80 mg PO BID 05/15/17 [History Confirmed 09/22/18] Simvastatin 80 mg PO QHS 05/15/17 [History Confirmed 09/22/18] Vitamin E 400 unit PO DAILY 05/15/17 [History Confirmed 09/22/18] Acetaminophen [Tylenol Tablet] 650 mg PO Q4H PRN PRN tab 05/17/17 [Rx Confirmed 09/22/18] Metformin HCl [Glucophage] 1,000 mg PO DAILY 05/30/18 [History Confirmed 09/22/18] albuterol sulfate HFA 90 mcg/actuation aerosol inhaler 2 puff INHALATION Q6H PRN 09/22/18 [History Confirmed 09/22/18] PFSH Medical History Nicotine dependence, cigarettes, in remission (Chronic) SOB (shortness of breath) (Chronic) Thoracic aortic aneurysm (Chronic) Vitamin B12 deficiency (Chronic) Kidney disease, chronic, stage II (GFR 60-89 ml/min) (Chronic) PVD (peripheral vascular disease) (Chronic) Past heart attack (Chronic) Blockage of coronary artery of heart (Chronic) CVA (cerebral vascular accident) (Chronic) Hyperlipemia (Chronic) Emphysema lung (Chronic) RENEE (obstructive sleep apnea) (Chronic) Pulmonary nodule (Chronic) Chest pain (Acute) CAD (coronary artery disease) (Chronic) PAD (peripheral artery disease) (Chronic) DM2 (diabetes mellitus, type 2) (Chronic) HTN (hypertension) (Chronic) CKD (chronic kidney disease) stage 3, GFR 30-59 ml/min (Chronic) COPD (chronic obstructive pulmonary disease) (Chronic) Kidney stone on right side (Acute) Kidney stone on right side (Acute) Surgical History History of carpal tunnel release (Resolved) History of cardiac catheterization (Resolved) History of heart artery stent (Resolved) History of inguinal hernia repair (Resolved) Family History Father Cirrhosis Mother Cancer lung Social History Smoking Status: Former smoker how long ago did patient quit smokin, 2ppd second hand exposure: Yes Review of Systems Const CONSTITUTIONAL: Positive fatigue; negative anorexia, body ache, chills, daytime sleepiness, fever(s), night sweats, oral thrush, stops breathing during sleep, weight loss, sleeping in chair, weight loss, weight gain, frequent colds, seasonal allergies, other, headache(s) or orthopnea EETM Ear Nose Throat Mouth: Positive hearing normal and nasal discharge; negative hard of hearing, hoarseness, dry mouth in morning, change in vision, itchy eyes, eye pain, swallowing Difficulty, ear pain, nose bleed, headache(s), mouth pain, nasal congestion, post nasal drip, sinus pain, sinus pressure, sore throat or other Cardio Cardiovascular: Positive chest pain (right side at times ); negative chest pain at rest, chest pain with activity, irregular heart rhythm, edema, shortness of breath when lying down, palpitations, murmur or other Resp Respiratory: Positive as per HPI, shortness of breath shortness of breath: Positive with activity, lying down and while talking, wheezing and cough cough: Positive non-productive; negative pain with cough, chest congestion, chest tightness, pain on inspiration, inhalers, increase use of rescue inhalers, snoring, apnea or other Gastro Gastrointestional: Negative bloody stools, change in appetite, difficulty swallowing, reflux, hematemesis, melena stool, loose stool, constipation or other Genitourinary: Negative blood in urine, nocturia, pain with urination or other Musc Musculoskeletal: Negative body pain, back pain, neck pain or other Skin/Breast Skin/Breast: Negative dry skin, itching, rash, unusual bruising, breast lump or other Neuro Neurological: Negative restless legs, confusion, weakness or other Psych Psychocological: Negative abnormal sleep pattern, anxiety, thoughts of hurting self/others, hopelessness or other Lymph Lymphatic: Negative easy bleeding, easy bruising, swollen lymph nodes or other Exam Const Constitutional: Positive conversant, cooperative, in no acute respiratory distress, well developed, well nourished and good hygiene Head Head: Positive normocephalic and atraumatic; negative cyanosis of lips/distal nose Eyes Eye: Positive clear conjunctiva; negative nystagmus or scleral abnormality Ears Ear: Positive hearing normal and external ears normal; negative hard of hearing Nose Nose: Positive external nose normal; negative epistaxis Mouth Mouth: Positive oral mucosae normal and posterior oropharynx is adequate; negative no lesions or post nasal drip Mallampati Score: II: Mallampati Score Neck Neck: Positive normal visual inspection and trachea midline; negative lymphadenopathy Chest Wall Chest: Positive symmetric chest movement Normal AP diameter. Resp lung sounds: Positive diminished diminished: Positive bialteral and normal expiratory time; negative wheezes, rhonchi or rales Cardio Cardiac: Positive regular rate, regular rhythm, S1 normal and S2 normal; negative rub, gallop or murmur GI GI: Positive normal bowel sounds Soft without distention Genitourinary: Positive deferred Musc Musculoskeletal: Positive steady gait Skin Pulmonary Skin Exam: Positive intact; negative lesion, ulcers, dermal atrophy or rash Pulses Pulse: Yes Pedal pulses present: Extremities Extremities: No clubbing, No cyanosis, Yes edema (Trace LE) Neuro Neurologic: Yes conversant, Yes no focal neuro deficits, Yes cooperative Lymph Lymphatic: No lymphadenopathy Psych Appearance: Positive grossly normal Mental Status: Positive mental status grossly normal Mood: Positive congruent mood Affect: Positive normal affect Coding Level of Care Code Off vis,new,level 5 Diagnoses SOB (shortness of breath) R06.02 RENEE (obstructive sleep apnea) G47.33 Lung nodule R91.1 Coronary artery disease involving resighini coronary artery of resighini heart with unstable angina pectoris I25.110 Associated angina: with unstable angina Coronary Disease-Associated Artery/Lesion type: resighini artery [place] vs. transplanted heart: resighini heart Nicotine dependence, cigarettes, in remission F17.211 09/23/18 0721 <Electronically signed by Derrick Morales DO> Date Derrick Morales DO Cosigner Signature: Date (if applicable) CC: Crow Serrato BASIC METABOLIC PANEL Collected: 09/21/2018 Status: F Source: [facility] 10:03 AM SYSTEM REPOSITORY TYPE CODE TESTS RESULT OUT OF RANGE REFERENCE UNITS LAB NA3 135-145 mmol/L Sodium Normal 136 LAB K3 3.5-5.1 mmol/L Normal Potassium 4.7 LAB CL3 98-107 mmol/L Chloride Normal 100 LAB CO23 22-30 mmol/L Carbon Normal Dioxide 27 LAB ANIN3 NA Anion Gap 9 LAB GLUC3 70-100 mg/dL High Glucose 193 LAB BUN3 7-20 mg/dL High Urea Nitrogen 28 LAB CRET3 0.52-1.25 mg/dL High Creatinine 1.60 LAB GF3BR >60 mL/min eGFR 51.2 LAB GF3WR >60 mL/min eGFR OTHER 42.3 Result Comment: Source- MDRD equation with creatinine calibration to IDMS(NKDEP) eGFR not recommended for drug dose adjustment LAB CA3 8.4-10.4 mg/dL Normal Calcium 9.6 Performed By: #### BMP3 #### [facility] [address] [place] [address] CHEST WITHOUT Observed: 08/30/2018 Status: F Source: THAYNE CONTRAST 12:27 PM [facility] REPOSITORY [facility] Imaging Services [address] [place] [id number] Chest without Contrast MR#: [id number] Acct: [id number] Name: SAL AGUILAR Rep #: [id number] : 1945 M 73 From: Jayjay Blunt MD PCP: Crow Serrato Status: REG CLI Study: Chest without Contrast Date of Exam: 08/30/18 Exam# [id number] Ordering Dr: Crow Serrato STUDY: CT CHEST WITHOUT CONTRAST REASON FOR EXAM: Male, 73 years old. Restrictive lung disease. Previous smoker. RADIATION DOSAGE (If Supplied By Facility): CTDIvol = ( 14.96 ) mGy, DLP = ( 571.90 ) mGycm TECHNIQUE: Transaxial imaging was performed without the administration of intravenous contrast material. Individualized dose optimization techniques were used for this CT. COMPARISON: None. FINDINGS: TRACHEA, THYROID, ESOPHAGUS: No tracheomalacia,stricture or wall thickening. Thyroid and esophagus are normal CARDIOVASCULAR SYSTEM: The thoracic aorta is grossly within normal limits. The pulmonary trunk and the left pulmonary arteries are also grossly within normal limits. The heart is not enlarged. There are no vascular developmental anomalies. SHELLY AND LYMPH NODES: No hilar masses and no mediastinal, hilar, axillary or supraclavicular adenopathy LUNGS, LOW-ATTENUATION: No traction bronchiectasis, honeycombing,emphysema, lung cysts or cavitations LUNGS, HIGH ATTENUATION: A 1 cm spiculated density in the right upper lobe. This was not present on the last examination of May 15, 2017 LUNGS, MOSAIC/CRAZY PAVING: Not evident PLEURA AND CHEST WALL: No plural effusions, pneumothoraces,rib fractures or any osteolytic/osteoblastic changes . The soft tissue chest wall including the breasts are normal UPPER ABDOMEN: Unremarkable .. CT/Chest without Contrast IMPRESSION: A new 1 cm spiculated density in the right upper lobe. A malignant neoplastic process is suspected. Confirmation with a PET CT scan suggested N.B. : The above information has been verbally conveyed by Jayjay Blunt MD to [facility], , on 08/31/2018 05:06:44 (ET). Electronically Signed: Jayjay Blunt MD at 4:52 EST Tel , Service support , CC: Derrick Morales D.O.; Crow Serrato Agronomy Specialist: Signed PULMONARY FUNCTION Observed: 08/18/2018 Status: F Source: MIGUEL ÁNGEL TEST 11:38 AM [facility] REPOSITORY [facility] Pulmonary Services/Neurology [address] [place] [address] MR#: [id number] Acct: [id number] Name: SAL AGUILAR Rep #: [id number] : 1945 73 From: Derrick Morales DO Referring Dr: Crow Serrato Status: REG CLI Ordering Dr: Date: Location: [facility] Sex: M C INTRODUCTION: The patient is a 73-year-old male that presents for pulmonary function testing secondary to a diagnosis of dyspnea. Respiratory therapy reports good patient effort. Bronchodilators were used during testing. INTERPRETATION: Forced expiration spirometry demonstrates no evidence of a large airways obstructive ventilatory defect. There was no significant response to aerosolized bronchodilators. Spirograms are of good quality and do not plateau indicating slow emptying of the lungs. Body plethysmography was performed and reveals a decreased TLC to 4.39 L, 68% of predicted, indicative of a moderate restrictive ventilatory defect. The remainder of the lung volumes are symmetrically reduced. Diffusing capacity by single breath CO was also reduced at 61% of predicted. IMPRESSION: These pulmonary function studies demonstrate the presence of a moderate restrictive ventilatory defect with associated symmetric reduction in diffusing capacity. There are no previous pulmonary function studies available for comparison. 08/18/18 1138 <Electronically signed by Derrick Morales DO> Date Derrick Morales DO CC: Crow Serrato Date Dictated: 08/18/18 1135 Date Transcribed: 08/18/181134 Agronomy Specialist: CABRERA Signed CR CHEST SPECIAL Observed: 08/11/2018 Status: F Source: [facility] 8:23 AM SYSTEM REPOSITORY Patient Name: SAL AGUILAR Diagnostic Radiology Exam Date/Time 08/10/2018 12:45:00 EST Exam CR Chest Special Views Ordering Physician CROW SERRATO Accession Number [id number] CPT4 Codes 10600 () Reason For Exam DYSPNEA Report Chest: Special views: 08/10/2018. CLINICAL INFORMATION: Dyspnea. FINDINGS: Decubitus views of the chest with each side down reveals no evidence of layering pleural fluid on either side. Report Dictated on Workstation: -REMOTE Final Dictating Physician: MD RAMIREZ RISA Signed Date and Time: 08/11/2018 8:24 am Signed by: MD RAMIREZ RISA Transcribed Date and Time: 08/11/2018 8:25 CR CHEST PA/LAT Observed: 08/10/2018 Status: F Source: [facility] 3:54 PM SYSTEM REPOSITORY Patient Name: SAL AGUILAR Diagnostic Radiology Exam Date/Time 08/10/2018 13:00:02 EST Exam CR Chest PA/LAT Ordering Physician CROW SERRATO Accession Number [id number] CPT4 Codes 82705 () Reason For Exam dyspnea Report CHEST, PA and LATERAL: INDICATION: Dyspnea COMPARISON: 06/06/2018 PA and lateral views of the chest were obtained. The heart is normal in size. The mediastinal silhouette is normal. The lungs are clear. There are no effusions or infiltrates. There is no pleural thickening. Arthritic changes of the spine and shoulders are present. IMPRESSION: Negative chest. Report Dictated on Final Dictating Physician: DO ORTIZ ALFRED Signed Date and Time: 08/10/2018 3:56 pm Signed by: DO ORTIZ ALFRED Transcribed Date and Time: 08/10/2018 3:57 PROGRESS Observed: 06/30/2018 Status: COMPLETED Source: ORINDA 2:31 PM [facility] [place] REPOSITORY [facility] ID: [id number] Author: Noa Alford Service: (none) Author Type: Physician Type: Progress Notes Filed: 06/30/2018 2:57 PM Note Text: DIABETES FOLLOW UP SUBJECTIVE: aSl Aguilar is a 73 year old male who presents for a return visit regarding type 2 Diabetes. Diabetes complications include: peripheral neuropathy and CKD Sees for CKD. Interval history: He had kidney stone Saw urology in [place] Diabetes treatment regimen: Lantus 16 units q HS Humalog 5-5-7 Metformin 500 mg BID Meal plannin meals He is no longer snacking at bedtime eye exam:January 2018 A1c: 7.8 flu shot:Yes Blood glucose times and ranges (mg/dl): Currently checks sugars 3 times daily Breakfast 85-124 Lunch 93-160 Dinner 156-190 HS --- Hypoglycemic episodes/treatment: No PAST MEDICAL HISTORY Diagnosis Date - CAD (coronary artery disease) - Nephrolithiasis - Stroke (HCC) left arm and leg tingling REVIEW OF SYSTEMS: GENERAL: Fever - No Changes in weight - No NEUROLOGICAL: Numbness, tingling or sensation of pins and needles - No Headaches-No HEAD, EYES, EARS, NOSE, AND THROAT: Changes in hearing - No Changes in vision - No CARDIOVASCULAR: Chest pain or pressure - No Palpitations - No RESPIRATORY: Cough - No Wheezing - No Shortness of breath - No GASTROINTESTINAL: Abdominal discomfort - No Nausea - No Vomiting - No EXTREMITY: Edema (swelling) - No Claudication-No MUSCULOSKELETAL: Muscle pain or ache - No Arthralgia-No SKIN: Rash - No Erythema-No ENDOCRINE: Diabetes - Yes Thyroid disorder - No PSYCHOLOGICAL: Depression - No Anxiety-No Mood changes-No Current Outpatient Prescriptions on File Prior to Visit: insulin lispro (HUMALOG U-100 INSULIN) 100 unit/mL injection 5 units sc at breakfast and lunch, 7 units at supper. insulin glargine (LANTUS U-100 INSULIN) 100 unit/mL injection Inject 16 Units subcutaneously daily at bedtime. amLODIPine (NORVASC) 2.5 mg tablet Take 2 tablets by mouth once daily. cyanocobalamin (VITAMIN B-12) 1,000 mcg/mL soln Inject 1,000 mcg intramuscularly once every month. alpha tocopheryl acetate (VITAMIN E) 400 unit capsule Take 400 Units by mouth once daily. famotidine (PEPCID) 20 mg tablet Take 20 mg by mouth twice daily. metFORMIN (GLUCOPHAGE) 1,000 mg tablet Take 0.5 tablets by mouth twice daily with meals. COMPOUNDED PRESCRIPTION Easy touch teststrips, Test blood glucose 6 times daily Aspirin 81 mg Tab Take 81 mg by mouth once daily. clopidogrel (PLAVIX) 75 mg tablet Take 75 mg by mouth once daily. propranolol 80 mg tablet Take 80 mg by mouth twice daily. simvastatin 80 mg tablet Take 80 mg by mouth daily at bedtime. albuterol HFA (VENTOLIN HFA) 90 mcg/actuation inhaler Inhale 2 Puffs as instructed every 4 hours as needed. folic acid 800 mcg tablet Take 400 mcg by mouth once daily. ASCORBIC ACID (VITAMIN C ORAL) Take 1 tablet by mouth once daily. diphenhydrAMINE 25 mg capsule Take 25 mg by mouth every 6 hours as needed. lisinopril 20 mg tablet Take 1.5 tablets by mouth once daily. Insulin Syringe-Needle U-100 (EASY TOUCH) 0.3 mL 30 x 5/16 syrg 1 Each once daily. No current facility-administered medications on file prior to visit. PHYSICAL EXAM: BP 135/76 (BP Site: Left Arm, BP Position: Sitting, BP Cuff Size: Regular Adult) Pulse 68 Ht 178 cm (5' 10.08) Wt 81.6 kg (180 lb) SpO2 97% BMI 25.77 kg/m? Last 3 Encounter Wt Readings: Date: Wt: 06/30/2018 81.6 kg (180 lb) 11/24/2017 78.8 kg (173 lb 12.8 oz) 11/11/2016 77.6 kg (171 lb) General:alert and oriented X 3, no acute distress Eyes:anicteric sclera, Extraocular motions intact Mucous membranes moist, no erythema Neck supple, no cervical lymphadenopathy Thyroid: normal size, normal texture, no palpable nodules Chest: Breathing unlabored, Lungs clear to auscultation. No wheezing, rhonchi, rales CV:normal, Regular rate and rhythm, no murmurs, clicks, or gallops. Abdomen: Normal abdominal sounds, non tender to palpation, no masses Neuro: Gait normal. Sensation grossly intact. Normal DTR's at patella Musculoskeletal: Muscular strength intact, No joint swelling, deformity, or tenderness Extremities without edema, no deformities Skin: no rashes/erythema LAB: Glucose Date Value 06/06/2018 145 MG/DL 04/15/2006 170 mg/dL Potassium (mmol/L) Date Value 04/15/2006 4.1 K (mmol/L) Date Value 06/06/2018 4.4 Sodium (mmol/L) Date Value 04/15/2006 137 NA (mmol/L) Date Value 06/06/2018 138 Chloride Date Value 06/06/2018 99 MEQ/L 04/15/2006 101 mmol/L CO2 Date Value 06/06/2018 27 MEQ/L 04/15/2006 26 mmol/L Creatinine Date Value 06/06/2018 1.7 MG/DL 04/15/2006 0.8 mg/dL BUN Date Value 06/06/2018 24.8 MG/DL 04/15/2006 17 mg/dL Anion Gap (mmol/L) Date Value 04/15/2006 10 Calcium (mg/dL) Date Value 06/06/2018 9.7 04/15/2006 8.9 Hemoglobin A1C Date Value Ref Range Status 02/02/2018 7.8 (A) 4.3 - 5.6 % Final 04/16/2006 7.4 (H) 4.0 - 6.0 % Final Hemoglobin A1c Date Value Ref Range Status 10/30/2015 6.4 (A) 4 - 6 % Final 10/29/2014 6.5 (A) 4 - 6 % Final 04/27/2014 6.5 (A) 4 - 6 % Final Hemoglobin A1C (POCT) Date Value Ref Range Status 06/30/2018 7.2 (A) 4.2 - 5.6 % Final Comment: Point of care (POC) Hemoglobin A1c (HGBA1C) testing is intended to assess glucose control and provide a management tool for patients known to have diabetes and their healthcare providers. Target HGBA1C levels may depend on specific clinical circumstances. POC HGBA1C is not intended for use as a diagnostic or screening test; laboratory-based testing should be used for diagnostic purposes. The following information is supplemental and may not be applicable to specific diabetes management situations: The POC device trainmaster provides a normal range of 4.2% to 6.5% for the HGBA1C POC test. However, the [place] [employer] guidelines indicate that patients with HGBA1C in the range of 5.7% to 6.4% are at increased risk for development of diabetes and that intervention by lifestyle modification may be beneficial. A HGBA1C level greater than or equal to 6.5% is considered diagnostic of diabetes, pending confirmatory testing. Use of HGBA1C testing to evaluate glucose control may not be appropriate for patients with hemoglobin variants or other conditions (e.g. anemia) that alter red blood cell lifespan. 11/11/2016 6.8 (A) 4.2 - 5.6 % Final Comment: Point of care (POC) Hemoglobin A1c (HGBA1C) testing is intended to assess glucose control and provide a management tool for patients known to have diabetes and their healthcare providers. Target HGBA1C levels may depend on specific clinical circumstances. POC HGBA1C is not intended for use as a diagnostic or screening test; laboratory-based testing should be used for diagnostic purposes. The following information is supplemental and may not be applicable to specific diabetes management situations: The POC device trainmaster provides a normal range of 4.2% to 6.5% for the HGBA1C POC test. However, the [place] [employer] guidelines indicate that patients with HGBA1C in the range of 5.7% to 6.4% are at increased risk for development of diabetes and that intervention by lifestyle modification may be beneficial. A HGBA1C level greater than or equal to 6.5% is considered diagnostic of diabetes, pending confirmatory testing. Use of HGBA1C testing to evaluate glucose control may not be appropriate for patients with hemoglobin variants or other conditions (e.g. anemia) that alter red blood cell lifespan. Vitamin D 25 Hydroxy (no units) Date Value 06/06/2018 >60 ] No results found for: UALBCR Ref. 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 Glycemic Control:A1c is 7.2 today Review of BG log reveals pre-prandial hyperglycemia Increase humalog to 7 units with lunch and 9 units with dinner Continue humalog 5 units with breakfast Continue current lantus dose If he starts to have overnight hypoglycemia, then I suggested him to decrease lantus to 14 units Patient is instructed to test sugars 3 times daily 3. Hypertension:BP is well controlled 4. Cholesterol:LDL is at goal 5. Complications: CKD- sees nephrology Renal function is stable 6. Other: Eye exam and immunizations are uptodate Follow up in 1 year Noa Alford MD 06/30/18 BETH Observed: 06/30/2018 Status: COMPLETED Source: ORINDA 2:25 PM [facility] REPOSITORY Office Visit (ENDMED) SAL AGUILAR ([id number]) 1945 M Date Time Provider Department 06/30/18 2:25 PM NOA ALFORD During your visit today, we recorded the following information about you: Pulse Blood pressure Weight Height 68/minute 135/76 81.6 kg 1.78 m Noa Alford MD 06/30/2018 2:57 PM Signed DIABETES FOLLOW UP SUBJECTIVE: Sal Aguilar is a 73 year old male who presents for a return visit regarding type 2 Diabetes. Diabetes complications include: peripheral neuropathy and CKD Sees for CKD. Interval history: He had kidney stone Saw urology in [place] Diabetes treatment regimen: Lantus 16 units q HS Humalog 5-5-7 Metformin 500 mg BID Meal plannin meals He is no longer snacking at bedtime eye exam:January 2018 A1c: 7.8 flu shot:Yes Blood glucose times and ranges (mg/dl): Currently checks sugars 3 times daily Breakfast 85-124 Lunch 93-160 Dinner 156-190 HS --- Hypoglycemic episodes/treatment: No PAST MEDICAL HISTORY Diagnosis Date - CAD (coronary artery disease) - Nephrolithiasis - Stroke (HCC) left arm and leg tingling REVIEW OF SYSTEMS: GENERAL: Fever - No Changes in weight - No NEUROLOGICAL: Numbness, tingling or sensation of pins and needles - No Headaches-No HEAD, EYES, EARS, NOSE, AND THROAT: Changes in hearing - No Changes in vision - No CARDIOVASCULAR: Chest pain or pressure - No Palpitations - No RESPIRATORY: Cough - No Wheezing - No Shortness of breath - No GASTROINTESTINAL: Abdominal discomfort - No Nausea - No Vomiting - No EXTREMITY: Edema (swelling) - No Claudication-No MUSCULOSKELETAL: Muscle pain or ache - No Arthralgia-No SKIN: Rash - No Erythema-No ENDOCRINE: Diabetes - Yes Thyroid disorder - No PSYCHOLOGICAL: Depression - No Anxiety-No Mood changes-No Current Outpatient Prescriptions on File Prior to Visit: insulin lispro (HUMALOG U-100 INSULIN) 100 unit/mL injection 5 units sc at breakfast and lunch, 7 units at supper. insulin glargine (LANTUS U-100 INSULIN) 100 unit/mL injection Inject 16 Units subcutaneously daily at bedtime. amLODIPine (NORVASC) 2.5 mg tablet Take 2 tablets by mouth once daily. cyanocobalamin (VITAMIN B-12) 1,000 mcg/mL soln Inject 1,000 mcg intramuscularly once every month. alpha tocopheryl acetate (VITAMIN E) 400 unit capsule Take 400 Units by mouth once daily. famotidine (PEPCID) 20 mg tablet Take 20 mg by mouth twice daily. metFORMIN (GLUCOPHAGE) 1,000 mg tablet Take 0.5 tablets by mouth twice daily with meals. COMPOUNDED PRESCRIPTION Easy touch teststrips, Test blood glucose 6 times daily Aspirin 81 mg Tab Take 81 mg by mouth once daily. clopidogrel (PLAVIX) 75 mg tablet Take 75 mg by mouth once daily. propranolol 80 mg tablet Take 80 mg by mouth twice daily. simvastatin 80 mg tablet Take 80 mg by mouth daily at bedtime. albuterol HFA (VENTOLIN HFA) 90 mcg/actuation inhaler Inhale 2 Puffs as instructed every 4 hours as needed. folic acid 800 mcg tablet Take 400 mcg by mouth once daily. ASCORBIC ACID (VITAMIN C ORAL) Take 1 tablet by mouth once daily. diphenhydrAMINE 25 mg capsule Take 25 mg by mouth every 6 hours as needed. lisinopril 20 mg tablet Take 1.5 tablets by mouth once daily. Insulin Syringe-Needle U-100 (EASY TOUCH) 0.3 mL 30 x 5/16 syrg 1 Each once daily. No current facility-administered medications on file prior to visit. PHYSICAL EXAM: BP 135/76 (BP Site: Left Arm, BP Position: Sitting, BP Cuff Size: Regular Adult) Pulse 68 Ht 178 cm (5' 10.08) Wt 81.6 kg (180 lb) SpO2 97% BMI 25.77 kg/m? Last 3 Encounter Wt Readings: Date: Wt: 06/30/2018 81.6 kg (180 lb) 11/24/2017 78.8 kg (173 lb 12.8 oz) 11/11/2016 77.6 kg (171 lb) General:alert and oriented X 3, no acute distress Eyes:anicteric sclera, Extraocular motions intact Mucous membranes moist, no erythema Neck supple, no cervical lymphadenopathy Thyroid: normal size, normal texture, no palpable nodules Chest: Breathing unlabored, Lungs clear to auscultation. No wheezing, rhonchi, rales CV:normal, Regular rate and rhythm, no murmurs, clicks, or gallops. Abdomen: Normal abdominal sounds, non tender to palpation, no masses Neuro: Gait normal. Sensation grossly intact. Normal DTR's at patella Musculoskeletal: Muscular strength intact, No joint swelling, deformity, or tenderness Extremities without edema, no deformities Skin: no rashes/erythema LAB: Glucose Date Value 06/06/2018 145 MG/DL 04/15/2006 170 mg/dL Potassium (mmol/L) Date Value 04/15/2006 4.1 K (mmol/L) Date Value 06/06/2018 4.4 Sodium (mmol/L) Date Value 04/15/2006 137 NA (mmol/L) Date Value 06/06/2018 138 Chloride Date Value 06/06/2018 99 MEQ/L 04/15/2006 101 mmol/L CO2 Date Value 06/06/2018 27 MEQ/L 04/15/2006 26 mmol/L Creatinine Date Value 06/06/2018 1.7 MG/DL 04/15/2006 0.8 mg/dL BUN Date Value 06/06/2018 24.8 MG/DL 04/15/2006 17 mg/dL Anion Gap (mmol/L) Date Value 04/15/2006 10 Calcium (mg/dL) Date Value 06/06/2018 9.7 04/15/2006 8.9 Hemoglobin A1C Date Value Ref Range Status 02/02/2018 7.8 (A) 4.3 - 5.6 % Final 04/16/2006 7.4 (H) 4.0 - 6.0 % Final Hemoglobin A1c Date Value Ref Range Status 10/30/2015 6.4 (A) 4 - 6 % Final 10/29/2014 6.5 (A) 4 - 6 % Final 04/27/2014 6.5 (A) 4 - 6 % Final Hemoglobin A1C (POCT) Date Value Ref Range Status 06/30/2018 7.2 (A) 4.2 - 5.6 % Final Comment: Point of care (POC) Hemoglobin A1c (HGBA1C) testing is intended to assess glucose control and provide a management tool for patients known to have diabetes and their healthcare providers. Target HGBA1C levels may depend on specific clinical circumstances. POC HGBA1C is not intended for use as a diagnostic or screening test; laboratory-based testing should be used for diagnostic purposes. The following information is supplemental and may not be applicable to specific diabetes management situations: The POC device trainmaster provides a normal range of 4.2% to 6.5% for the HGBA1C POC test. However, the [place] [employer] guidelines indicate that patients with HGBA1C in the range of 5.7% to 6.4% are at increased risk for development of diabetes and that intervention by lifestyle modification may be beneficial. A HGBA1C level greater than or equal to 6.5% is considered diagnostic of diabetes, pending confirmatory testing. Use of HGBA1C testing to evaluate glucose control may not be appropriate for patients with hemoglobin variants or other conditions (e.g. anemia) that alter red blood cell lifespan. 11/11/2016 6.8 (A) 4.2 - 5.6 % Final Comment: Point of care (POC) Hemoglobin A1c (HGBA1C) testing is intended to assess glucose control and provide a management tool for patients known to have diabetes and their healthcare providers. Target HGBA1C levels may depend on specific clinical circumstances. POC HGBA1C is not intended for use as a diagnostic or screening test; laboratory-based testing should be used for diagnostic purposes. The following information is supplemental and may not be applicable to specific diabetes management situations: The POC device trainmaster provides a normal range of 4.2% to 6.5% for the HGBA1C POC test. However, the [place] [employer] guidelines indicate that patients with HGBA1C in the range of 5.7% to 6.4% are at increased risk for development of diabetes and that intervention by lifestyle modification may be beneficial. A HGBA1C level greater than or equal to 6.5% is considered diagnostic of diabetes, pending confirmatory testing. Use of HGBA1C testing to evaluate glucose control may not be appropriate for patients with hemoglobin variants or other conditions (e.g. anemia) that alter red blood cell lifespan. Vitamin D 25 Hydroxy (no units) Date Value 06/06/2018 >60 ] No results found for: UALBCR Ref. 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 Glycemic Control:A1c is 7.2 today Review of BG log reveals pre-prandial hyperglycemia Increase humalog to 7 units with lunch and 9 units with dinner Continue humalog 5 units with breakfast Continue current lantus dose If he starts to have overnight hypoglycemia, then I suggested him to decrease lantus to 14 units Patient is instructed to test sugars 3 times daily 3. Hypertension:BP is well controlled 4. Cholesterol:LDL is at goal 5. Complications: CKD- sees nephrology Renal function is stable 6. Other: Eye exam and immunizations are uptodate Follow up in 1 year Noa Alford MD 06/30/18 Noa Alford MD 06/30/2018 2:45 PM Addendum Increase humalog to 7 units with lunch and 9 units with dinner If you start having low sugars during the night, then decrease lantus to 14 units at bedtime Follow up in 1 year Referring Provider: SELF [200] Allergies As of Date: 06/30/2018 Noted Allergy Reaction HAY FEVER (SEASONAL ALLERGIES) 04/27/2014 14 - Other: See Comments Comments: Sneezing, watery eyes MELON FLAVOR 11/25/2012 7 - Swelling 9 - Itching Comments: Throat PUMPKIN 04/27/2014 9 - Itching Date Reviewed: 06/30/2018 Reviewed by: Noa Alford - Fully Assessed Reason for Visit: Diabetes [34] Primary Visit Diagnosis:Type 2 diabetes mellitus with complication, with long-term current use of insulin (HCC) [E11.8, Z79.4] Other Visit Diagnoses:Essential hypertension [I10] Pure hypercholesterolemia [E78.00] Order(s):HEMOGLOBIN A1C (POC) [9741263] Order #: [id number]. #:[id number] insulin lispro (HUMALOG U-100 INSULIN) 100 unit/mL injection5 units sc at breakfast, 7 units with lunch, 9 units at supper.Disp: Rfl: 0 Prescriptions as of 06/30/2018 Sig: INSULIN LISPRO (U-100) 100 UN* 5 units sc at breakfast, 7 un* INSULIN GLARGINE (U-100) 100 * Inject 16 Units subcutaneousl* AMLODIPINE 2.5 MG TABLET Take 2 tablets by mouth once * CYANOCOBALAMIN (VIT B-12) 1,0* Inject 1,000 mcg intramuscula* VITAMIN E 400 UNIT CAPSULE Take 400 Units by mouth once * FAMOTIDINE 20 MG TABLET Take 20 mg by mouth twice cherelle* METFORMIN 1,000 MG TABLET Take 0.5 tablets by mouth twi* COMPOUNDED PRESCRIPTION Easy touch teststrips, Test b* ASPIRIN 81 MG TABLET Take 81 mg by mouth once anderson* CLOPIDOGREL 75 MG TABLET Take 75 mg by mouth once anderson* PROPRANOLOL 80 MG TABLET Take 80 mg by mouth twice cherelle* SIMVASTATIN 80 MG TABLET Take 80 mg by mouth daily at * ALBUTEROL SULFATE HFA 90 MCG/* Inhale 2 Puffs as instructed * FOLIC ACID 800 MCG TABLET Take 400 mcg by mouth once da* VITAMIN C ORAL Take 1 tablet by mouth once d* DIPHENHYDRAMINE 25 MG CAPSULE Take 25 mg by mouth every 6 h* LISINOPRIL 20 MG TABLET Take 1.5 tablets by mouth onc* INSULIN SYRINGE-NEEDLE U-100 * 1 Each once daily. Medication notes this encounter INSULIN SYRINGE-NEEDLE U-100 0.3 ML 30 GAUGE X 01/26 >> Helene Chandler Ma 06/30/2018 2:18 PM >> HELENE CHANDLER MA Jun 30, 2018 2:18 PM D/c Problem List As Of Date 06/30/2018 Noted Resolved Type 2 diabetes mellitus with stage 3 chronic k*INVALID FOR* More... Hypertension [I10] INVALID FOR* Pure hypercholesterolemia [E78.00] INVALID FOR* CAD (coronary artery disease) [I25.10] INVALID FOR* More... Peripheral vascular disease [I73.9] INVALID FOR* More... CKD (chronic kidney disease) stage 3, GFR 30-59*INVALID FOR* Vitamin D deficiency [E55.9] INVALID FOR* Mild atherosclerosis of carotid artery, bilater*INVALID FOR* More... Other instructions from your clinician: Increase humalog to 7 units with lunch and 9 units with dinner If you start having low sugars during the night, then decrease lantus to 14 units at bedtime Follow up in 1 year Prescriptions ordered this encounter Disp Refills Start End INSULIN LISPRO (U-100) 100 UNIT/ML S* 0 06/30/2018 Class: Med Update Si units sc at breakfast, 7 units with lunch, 9 units at supper. Medications Discontinued During This Encounter insulin lispro (HUMALOG U-100 INSULI* 0 02/03/2018 06/30/2018 Class: Med Update Si units sc at breakfast and lunch, 7 units at supper. Disc: Reason for discontinue is not on file. Disposition: Return in about 1 year (around 06/30/2019). Follow-up and Disposition History Recorded Encounter Status:Closed by NOA ALFORD DO on 06/30/18 ABDOMEN SINGLE VIEW Observed: 06/27/2018 Status: F Source: MIGUEL ÁNGEL 2:03 PM [facility] REPOSITORY [facility] Imaging Services [address] [place] [address] Abdomen Single View MR#: [id number] Acct: [id number] Name: SAL AGUILAR Rep #: [id number] : 1945 M 73 From: Ricky Oseguera MD PCP: Crow Serrato Status: REG CLI Study: Abdomen Single View Date of Exam: 06/27/18 Exam# [id number] Ordering Dr: Joseph Levy MD STUDY: X-RAY - ABDOMEN/PELVIS REASON FOR EXAM: Male, 73 years old. Flank pain TECHNIQUE: Two AP supine views of the abdomen and pelvis. COMPARISON: 06/08/2018 FINDINGS: Normal visualized lung bases. No demonstrated renal stones. However, one could be obscured by the overlying bowel gas and stool. There is a moderate amount of colonic fecal material. There is no demonstrated free abdominal air. The visualized liver, spleen and kidneys are grossly normal in size and morphology. There are calcified phleboliths in the pelvis. Normal visualized osseous structures. RAD/Abdomen Single View IMPRESSION: No acute findings Electronically Signed: Tanner Oseguera MD at 13:50 EDT , Service support , CC: Joseph Levy MD; Crow Serrato Agronomy Specialist: Signed BEDSIDE GLUCOSE Collected: 06/08/2018 Status: F Source: [place] 4:56 PM [facility] REPOSITORY TYPE CODE TESTS RESULT OUT OF RANGE REFERENCE UNITS LAB L501.080 70-110 mg/dL Normal BEDSIDE GLU 98 Result Comment: MANAGEMENT OF PATIENT CARE PER NURSING PROTOCOL Performed By: #### L501.080 #### [facility] Point of Care [address] [place] [address] OPERATIVE REPORT Observed: 06/08/2018 Status: F Source: [place] 4:16 PM [facility] REPOSITORY [facility] Medical Records Department [address] [place] [address] Operative Report 06/08/18 1614 MR#: [id number] Acct: [id number] Name: SAL AGULIAR Rep #: [id number] : 1945 73 From: Joseph Levy MD PCP: Crow Serrato Status: REG SDC Y Location: [place] [address] Report of Operation Date of Procedure: 06/08/18 Pre-Operative Diagnosis: Right kidney stone status post stent placement for obstructing stone Post-Operative Diagnosis: Same Surgery/Procedure Performed:: Right extracorporeal shockwave lithotripsy, cystoscopy and right stent removal Description of Surgical Findings:: 73-year-old male who presented with obstructing stone he underwent placement of a stent today were discussed could proceed with right shockwave lithotripsy and treatment of the stone fragments blocking the kidney and possible removal of the stent. Procedure note patient taken back to the operating room the smooth induction of general anesthesia he was placed supine on the table we then localize the stone in the F2 focal point of the lithotripter machine in the right kidney that stone at the UPJ fairly large stone about 7 mm in size we start shockwave lithotripsy at a rate of 90 power ranging from 1-7 and after about 1500 shockwaves a stone broke up fairly quickly we then treated the other small fragments in the lower pole of the right kidney continued with the treatment the stone broke up really well. We then prepped and draped the penis and testicles in usual sterile fashion went in with a flexible cystoscope get into the bladder once in the bladder identified the stent coming from the right kidney and the ureteral orifice I grabbed used a grasper to grab the stent and extracted it from the bladder. The bladder was then drained. That we stop and treatment of the shockwave machine the patient has anesthetic was reversed is taken back to the PACU good condition plan to see him back in a few weeks with a KUB. Type of Anesthesia:: General Drains: none - Admit VTE Documentation VTE Present on Admission: No VTE Mechan Device Prophylaxis: SCD's 06/08/18 1616 <Electronically signed by Joseph Levy MD> Date Joseph Levy MD CC: Joseph Levy MD; Crow Serrato Signed DISCHARGE INSTRUCTION Observed: 06/08/2018 Status: F Source: THAYNE 4:05 PM [facility] REPOSITORY [facility] Medical Records Department [address] [place] [address] Instructions for Home/Discharge Instructions 06/08/18 1604 MR#: [id number] Acct: [id number] Name: SAL AGUILAR Rep #: [id number] : 1945 73 From: Joseph Levy MD PCP: Crow Serrato Status: REG KY[facility] Discharge Diet: No Restrictions, Light diet - advance as tolerated Discharge Activity: Return to Normal Activity, May Not Drive - for 2 days. Additional Activity Instructions:: Please be aware that pain medications may cause nausea. You should typically eat light foods as you take your pain medication. Pain medication may cause constipation, if this is a problem for you, please discuss with your doctor. Allergies/Adverse Reactions: Allergies Opioids - Morphine Analogues Adverse Reaction (Verified 05/30/18 15:56) Vomiting Medications to take at Discharge Amlodipine [Norvasc] 2.5 mg PO BID 05/15/17 Ascorbic Acid [Vitamin C] 1,000 mg PO DAILY 05/15/17 Aspirin [Aspirin, Baby] 81 mg PO DAILY@0800 05/15/17 Cholecalciferol (Vitamin D3) [Vitamin D3] 400 unit PO DAILY 05/15/17 Clopidogrel Bisulfate [Clopidogrel] 75 mg PO DAILY 05/15/17 Diphenhydramine HCl [Allergy] 25 mg PO BID 05/15/17 Famotidine 20 mg PO BID 05/15/17 Folic Acid 0.8 mg PO DAILY@0800 05/15/17 Insulin Glargine,Hum.rec.anlog [Lantus] 15 unit SC QHS 05/15/17 Insulin Lispro [Humalog] 5 unit SC BREAKFAST 05/15/17 Insulin Lispro [Humalog] 5 unit SC LUNCH 05/15/17 Insulin Lispro [Humalog] 7 unit SC DINNER 05/15/17 Lisinopril [Zestril] 40 mg PO DAILY 05/15/17 Propranolol HCl 80 mg PO BID 05/15/17 Simvastatin 80 mg PO QHS 05/15/17 Vitamin E 400 unit PO DAILY 05/15/17 Acetaminophen [Tylenol Tablet] 650 mg PO Q4H PRN PRN tablet 05/17/17 Metformin HCl [Glucophage] 1,000 mg PO DAILY 05/30/18 Primary Care Physician: Crow Serrato [Primary Care Provider] - Test Results: Test results from this visit will be discussed in further detail at your follow-up appointment, if applicable. Please Follow Up With: Joseph Levy MD When: please call to make an appointment. 06/08/18 1605 <Electronically signed by Joseph Levy MD> Date Joseph Levy MD CC: Crow Serrato BEDSIDE GLUCOSE Collected: 06/08/2018 Status: F Source: MIGUEL ÁNGEL 1:13 PM [facility] REPOSITORY TYPE CODE TESTS RESULT OUT OF REFERENCE UNITS RANGE LAB L501.080 70-110 mg/dL High BEDSIDE GLU 130 Result Comment: MANAGEMENT OF PATIENT CARE PER NURSING PROTOCOL Performed By: #### L501.080 #### [facility] Point of Care [address] [place] [address] ABDOMEN SINGLE VIEW Observed: 06/08/2018 Status: F Source: MIGUEL ÁNGEL 12:00 AM [facility] REPOSITORY [facility] Imaging Services [address] [place] [address] Abdomen Single View MR#: [id number] Acct: [id number] Name: SAL AGUILAR Rep #: [id number] : 1945 M 73 From: Maxi Austin MD PCP: Crow Serrato Status: [facility] Study: Abdomen Single View Date of Exam: 06/08/18 Exam# [id number] Ordering Dr: Joseph Levy MD STUDY: X-RAY - ABDOMEN/PELVIS REASON FOR EXAM: Male, 73 years old. Pre-ESWL. TECHNIQUE: Two AP supine views of the abdomen and pelvis. COMPARISON: Comparison is made with prior CT scan the abdomen and pelvis May 18, 2018. FINDINGS: There is a moderate amount of colonic fecal material. A right-sided double-J stent catheter is seen with the proximal tip in the right renal pelvis and distal tip of the right-sided bladder. There is a 6.4 mm calculus in the proximal portion of the right ureter just distal to the ureteropelvic junction. There are calcified phleboliths in the pelvis. Normal visualized osseous structures. RAD/Abdomen Single View IMPRESSION: 6.4 mm calculus in the proximal portion of the right ureter. Right-sided double-J stent catheter. Electronically Signed: Maxi Austin MD at 13:13 EDT Tel [phone], Service support , CC: Joseph Levy MD; Crow Serrato Agronomy Specialist: Signed CR CHEST PA/LAT Observed: 06/06/2018 Status: F Source: [facility] 2:45 PM SYSTEM REPOSITORY Patient Name: SAL AGUILAR Diagnostic Radiology Exam Date/Time 06/06/2018 13:41:18 EDT Exam CR Chest PA/LAT Ordering Physician CROW SERRATO Accession Number [id number] CPT4 Codes 21237 () Reason For Exam other alveolar conditions Report CHEST X-RAY PA/LATERAL CLINICAL INDICATION: Right-sided chest pain, shortness of breath Frontal and lateral plain films of the chest were obtained. COMPARISON: 10/17/2015 FINDINGS: The cardiac silhouette is within normal limits. There is elevation of the right hemidiaphragm, unchanged when compared to the prior examination. No focal consolidation is seen within the lungs. No pleural effusion or pneumothorax is identified. The bony structures of the chest are unremarkable as visualized. IMPRESSION: No focal consolidation seen within the lungs. Elevation of the right hemidiaphragm is similar to the prior examination. Report Dictated on Final Dictating Physician: MD HAMMOND JONATHAN R Signed Date and Time: 06/06/2018 2:46 pm Signed by: MD HAMMOND JONATHAN R Transcribed Date and Time: 06/06/2018 2:47 OPERATIVE REPORT Observed: 05/18/2018 Status: F Source: MIGUEL ÁNGEL 4:48 PM [facility] REPOSITORY [facility] Medical Records Department [address] [place] [address] Operative Report 05/18/181645 MR#: [id number] Acct: [id number] Name: SAL AGUILAR Rep #: [id number] : 1945 73 From: Joseph Levy MD PCP: Crow Serrato Status: REG SDC Y Location: [place] [address] Problem List (1) Kidney stone on right side Status: Acute Report of Operation Date of Procedure: 05/18/18 Pre-Operative Diagnosis: right obstructing renal calculi Post-Operative Diagnosis: Same Surgery/Procedure Performed:: Cystoscopy, right retrograde pyelogram, right stent placement Description of Surgical Findings:: 73-year-old male taken back to the operating room at the smooth induction of [facility], he was placed in dorsal lithotomy position the penis testicles were prepped and draped in usual sterile fashion, went to the bladder with a 21 Belgian rigid cystourethroscope, we infiltrated the urethra with lidocaine jelly, the bladder was normal, the prostate was normal, the room is normal the trigone is normal identify the right ureteral orifice advanced a wire up into the right kidney could see some stones under fluoroscopy I then placed a stent a 7 Belgian by 26 cm stent on the right side once a stent was in good position then pulled the wire the stent, the stent coiled, we did a retrograde pyelogram as well during the stent placement. Patient bladder was emptied taken back to PACU good condition. Plan to set him up for right ESWL the treatment of the stone fragments want to be off his Plavix for at least 7 days for the treatment want to talk to his chemical production technician. Type of Anesthesia:: General Drains: stent right 7fr x 26 cm - Admit VTE Documentation VTE Present on Admission: No VTE Mechan Device Prophylaxis: SCD's 05/18/181647 <Electronically signed by Joseph Levy MD> Date Joseph Levy MD CC: Joseph Levy MD; Crow Serrato Signed DISCHARGE INSTRUCTION Observed: 05/18/2018 Status: F Source: MIGUEL ÁNGEL 3:28 PM [facility] REPOSITORY [facility] Medical Records Department [address] [place] [address] Instructions for Home/Discharge Instructions 05/18/18 1527 MR#: [id number] Acct: [id number] Name: SAL AGUILAR Rep #: [id number] : 1945 73 From: Joseph Levy MD PCP: Crow Serrato Status: REG SDC Discharge Diet: No Restrictions, Light diet - advance as tolerated Discharge Activity: Return to Normal Activity, May Not Drive - for 2 days. Additional Activity Instructions:: f you have a catheter, remove on ___. If you have any problems after catheter is removed, call [phone] and ask for your doctor to be paged. Please be aware that pain medications may cause nausea. You should typically eat light foods as you take your pain medication. Pain medication may cause constipation, if this is a problem for you, please discuss with your doctor. Allergies/Adverse Reactions: Allergies Opioids - Morphine Analogues Adverse Reaction (Verified 05/18/18 09:11) Vomiting Medications to take at Discharge Amlodipine [Norvasc] 2.5 mg PO BID 05/15/17 Ascorbic Acid [Vitamin C] 1,000 mg PO DAILY 05/15/17 Aspirin [Aspirin, Baby] 81 mg PO DAILY@0800 05/15/17 Cholecalciferol (Vitamin D3) [Vitamin D3] 400 unit PO DAILY 05/15/17 Clopidogrel Bisulfate [Clopidogrel] 75 mg PO DAILY 05/15/17 Diphenhydramine HCl [Allergy] 25 mg PO BID 05/15/17 Famotidine 20 mg PO BID 05/15/17 Folic Acid 0.8 mg PO DAILY@0800 05/15/17 Insulin Glargine,Hum.rec.anlog [Lantus] 15 unit SC QHS 05/15/17 Insulin Lispro [Humalog] 5 unit SC BREAKFAST 05/15/17 Insulin Lispro [Humalog] 5 unit SC LUNCH 05/15/17 Insulin Lispro [Humalog] 7 unit SC DINNER 05/15/17 Lisinopril [Zestril] 40 mg PO DAILY 09/02/17 Propranolol HCl 80 mg PO BID 05/15/17 Simvastatin 80 mg PO QHS 05/15/17 Vitamin E 400 unit PO DAILY 05/15/17 Acetaminophen [Tylenol Tablet] 650 mg PO Q4H PRN PRN tablet 05/17/17 Metformin HCl [Glucophage] 1,000 mg PO DAILY #0 05/17/17 Ciprofloxacin [Cipro] 250 mg PO BID #6 tab 05/18/18 The following prescriptions were given: Ciprofloxacin [Cipro] 250 mg PO BID #6 tab Primary Care Physician: Crow Serrato [Primary Care Provider] - Test Results: Test results from this visit will be discussed in further detail at your follow-up appointment, if applicable. Please Follow Up With: Joseph Levy MD When: please call to make an appointment. 05/18/18 1528 <Electronically signed by Joseph Levy MD> Date Joseph Levy MD CC: Crow Serrato HISTORY AND PHYSICAL Observed: 05/18/2018 Status: F Source: THAYNE EXAM 3:25 PM [facility] REPOSITORY [facility] Medical Records Department [address] [place] [address] History and Physical 05/18/18 1518 MR#: [id number] Acct: [id number] Name: SAL AGUILAR Rep #: [id number] : 1945 73 From: Joseph Levy MD PCP: Crow Serrato [place] [facility] [place]: [place] [address] Problem List (1) Kidney stone on right side Status: Acute History of Present Illness Date of Admission: 05/18/18 Chief Complaint: Right kidney stone, with hydronephrosis The patient is a 73 year old male with h/o heart disease presents to ER with severe right flank pain on plavix for heart stents, multiple. cr is elevated from hydronephrosis plan to bring to OR to place stent. Past Medical History Past Medical History (Chronic Problems): Chronic Problems COPD (chronic obstructive pulmonary disease) (Chronic) CKD (chronic kidney disease) stage 3, GFR 30-59 ml/min (Chronic) HTN (hypertension) (Chronic) DM2 (diabetes mellitus, type 2) (Chronic) PAD (peripheral artery disease) (Chronic) CAD (coronary artery disease) (Chronic) Medical History: Medical History (Last Updated 05/18/18 @ 15:21 by Joseph Levy MD) Kidney stone on right side N20.0 Allergies Opioids - Morphine Analogues Adverse Reaction (Verified 05/18/18 09:11) Vomiting Home Medications: Ambulatory Orders Medication Instructions Recorded Amlodipine [Norvasc] 2.5 mg PO BID 05/15/17 Ascorbic Acid [Vitamin C] 1,000 mg PO DAILY 05/15/17 Aspirin [Aspirin, Baby] 81 mg PO DAILY@0800 05/15/17 Surgical History: - - ESWL, Coronary stents - multiple, right hernia Psychiatric History: No pertinent psych hx Lives: Spouse/ Significant Other Smoking Status: Former smoker Tobacco Use: Non-smoker Alcohol: None Drugs: None - *Family History Maternal History Items: - - No coronary artery disease Paternal History Items: - - No coronary artery disease Review of Systems Constitutional: Denies: Chills, Fever, Weight Change HEENT: Denies: Head Aches, Sinus Congestion, Sinus Drainage Cardiovascular: Denies: Chest Pain, Palpitations Respiratory: Denies: Cough, Shortness of breath at rest, Sputum production Gastrointestinal: Reports: Abdominal Pain. Denies: Nausea, Vomiting Genitourinary: Reports: Hematuria. Denies: Dysuria Musculoskeletal: Denies: Joint Pain, Joint Tenderness Skin: Denies: Rash, Wounds Neurological: Denies: Numbness, Tingling, Focal weakness Psychiatric: Denies: Anxiety, Depression, Homicidal Ideations, Suicidal Ideations Hematologic/ Lymphatic: Denies: Easy Bruising, Easy Bleeding VTE Information - Inpt Only VTE Present on Admission: No VTE Mechan Device Prophylaxis: SCD's Patient Problems: Active and Suspected Problems Kidney stone on right side (Acute) - Physical Exam General: Alert, Oriented x3, Cooperative HEENT: Atraumatic, PERRLA, EOMI, Normocephalic Neck: Supple, No JVD, Negative Carotid Bruits Lungs: Clear to auscultation, Normal air movement Cardiovascular: Regular rate, No murmurs Abdomen: Bowel Sounds Present, Soft, Non Tender Extremities: No edema, Capillary Refill Less than 3 Seconds Skin: No rashes, No breakdown Musculoskeletal: No Tenderness to Palpation of Joints or Extremities Neurological: Cranial nerves II-XII grossly intact Psych/Mental Status: Normal Affect, Appropriate Vital Signs Temp Pulse Resp BP Pulse Ox 97.0 F L 70 15 121/79 H 95 05/18/18 09:09 05/18/18 13:25 05/18/18 13:25 05/18/18 13:25 05/18/18 13:25 Oxygen Delivery Method Room Air Weight: 82.01 kg Body Mass Index (BMI) 25.9 Laboratory Tests Past 24 Hrs POC Glucose POC Glucose 177 H Assessment/Plan All Active Problems Kidney stone on right side (Acute) Chest pain (Acute) 73 yo male admitted from ER with stone blocking the right kidney with high grade obstruction, hydronephrosis and acute renal failure plan to to place a stent today, then home. my office with arrange for Right ESWL, will need to stop plavix for 7 days pre op will get cardiology OK from his chemical production technician Dr Mario in [place]. 05/18/18 1525 <Electronically signed by Joseph Levy MD> Date Joseph Levy MD Cosigner Signature: Date (if applicable) CC: Joseph Levy MD; Crow Serrato Signed BEDSIDE GLUCOSE Collected: 05/18/2018 Status: F Source: M[place]EL [place] 2:28 PM [facility] REPOSITORY TYPE CODE TESTS RESULT OUT OF REFERENCE UNITS RANGE LAB L501.080 70-110 mg/dL High BEDSIDE GLU 177 Result Comment: MANAGEMENT OF PATIENT CARE PER NURSING PROTOCOL Performed By: #### L501.080 #### [facility] of Care [address] [place] [address] EMERGENCY DEPARTMENT Observed: 05/18/2018 Status: F Source: MIGUEL ÁNGEL SUMMARY 12:48 PM [facility] REPOSITORY [facility] Medical Records Department [address] [place] [address] Emergency Department Summary 05/18/18 1036 MR#: [id number] Acct: [id number] Name: SAL AGUILAR Rep #: [id number] : 1945 73 From: Aleida Escamilla MD PCP: Crow Serrato Status: REG ER - ER Visit Summary Date of Service: 05/18/18 Chief Complaint: Abdominal pain History of Present Illness: The patient is a 73 M presenting with right lower quadrant abdominal pain. Patient woke up this morning with moderate right lower quadrant abdominal pain. He has nausea and vomiting. Denies blood in his emesis. He denies diarrhea or constipation. Denies urinary complaints. Denies fever. Denies chest pain or shortness of breath. Physical Examination: Vitals are stable. Patient is afebrile. Alert no acute distress. HEENT exam is unremarkable. Neck is supple. Lungs are clear and equal bilaterally. Heart is regular rate and rhythm. Abdomen is soft right lower quadrant tenderness. Extremities are unremarkable. Skin is warm and dry. No focal neurologic deficit. Remainder of exam is unremarkable. Emergency Department Course and Treatment: Patient given Dilaudid, Phenergan IV. CBC unremarkable. Chemistries show potassium 5.3, glucose 231, BUN 39, creatinine 2.37. Urinalysis shows 5-10 red blood cells, 0-[address] flank shows there is a 2 mm and 5 mm obstructive calculi in the midportion of the right ureter causing right hydronephrosis and right hydroureter with the right perinephric fat stranding as well as a small amount of fluid in the posterior right pararenal space. Nonobstructive right intrarenal calculus. Lab work was obtained from his rn l and d Dr. Mancilla's office. His creatinine on May 04, 2018 was 1.64. Discussed with Dr. Levy and he will take him to the operating room. Patient and family advised of this plan. Disposition: To OR Impression: Urolithiasis, acute kidney injury This note was generated with WeMonitoration software. It may contain incorrect words, spelling, and punctuation that were not noted in review of the chart prior to signing ED Disposition - Plan for ED Patient: Chief Complaint: Abd Pain Referrals: Crow Serrato [Primary Care Provider] - What to do if you have Problems For any increased pain, shortness of breath, bleeding, nausea or vomiting, chest pain, or any unexpected problems, contact your Primary Care Provider. Call [facility] ([phone]) or report to the closest Emergency Room. Call 911 if necessary. 05/18/18 4650 <Electronically signed by Aleida Escamilla MD> Date Aleida Escamilla MD Cosigner Signature (If Indicated): Date CC: Crow Serrato URINALYSIS, COMPLETE Collected: 05/18/2018 Status: F Source: MIGUEL ÁNGEL 10:15 AM [facility] REPOSITORY Order Comment: How was Urine Obtained? CLEAN CATCH TYPE CODE TESTS RESULT OUT OF RANGE REFERENCE UNITS LAB L400.3000 Yellow COLOR Normal Yellow LAB L400.3050 Clear Normal CLARITY Clear LAB L400.3200 Normal mg/dl High GLUCOSE, UR 250 LAB L400.3300 Negative mg/dL Normal BILIRUBIN URINE Negative LAB L400.3400 Negative mg/dl Normal KETONE UR Negative LAB L400.3465 1.002-1.030 Normal SP.GR. DIPSTX 1.015 LAB L400.3550 5.0 - 8.0 pH UR Normal 6.0 LAB L400.3600 Negative mg/dl High PROT 30 DIPSTX LAB L400.3700 Normal mg/dl Normal UROBILI Normal LAB L400.3750 Negative Normal NITRITE UR Negative LAB L400.3780 Negative /ul High OCCULT BLOOD-UR 150 LAB L400.3800 Negative /ul High LEUK ESTERASE 100 LAB L400.4050 0-5 /hpf WBC Normal 0-5 SEEN LAB L400.4100 0-5 /hpf Normal RBC-UA 5-10 SEEN LAB L400.4150 0-5 /hpf SQUAM Normal EPI 0-5 SEEN LAB L400.4300 None Seen /hpf Normal BACTERIA RARE LAB L400.4350 <or=2+ /hpf Normal MUCUS, URINE RARE Performed By: #### L400.0001 #### [facility] [address] [place], [place], [id number] CBC W/DIFF, AUTOMATED Collected: 05/18/2018 Status: F Source: THAYNE 10:05 AM [facility] REPOSITORY TYPE CODE TESTS RESULT OUT OF RANGE REFERENCE UNITS LAB L100.1000 4.4-11.0 K/mm3 Normal WBC 9.5 LAB L100.1200 4.6-6.2 M/mm3 Normal RBC 4.99 LAB L100.1300 13.0-16.5 g/dl Normal HGB 16.0 LAB L100.1400 40-54 % Normal HCT 46.8 LAB L100.1500 80-94 fL Normal MCV 93.8 LAB L100.1600 27.0-32.0 pg High MCH 32.1 LAB L100.1700 32-36 g/gl Normal MCHC 34.2 LAB L100.1810 11.6-14.6 % Normal RDW CV 13.1 LAB L100.1820 35.1-43.9 fl High RDW SD 44.3 LAB L100.1900 150-450 K/mm3 Normal PLT 158 LAB L100.2000 6.2-12.0 fl Normal MPV 10.1 LAB L100.2100 47-70 % High NEUT% 81.8 LAB L100.2200 19-41 % Low LY% 10.2 LAB L100.2300 0-10 % Normal MONO% 6.5 LAB L100.2400 0-5 % Normal EO% 1.2 LAB L100.2500 0-1 % Normal BASO% 0.2 LAB L100.2550 0.0-0.9 % Normal IM GRAN % 0.100 Result Comment: IG% - Immature Granulocytes (promyelocytes, myelocytes and metamyelocytes) > 1% indicates that a LEFT SHIFT is Present. LAB L100.2620 2.0-7.7 X10 3/uL Normal Absolute Neut 7.7 LAB L100.2720 0.83-4.51 X10 3/ul Normal Absolute Lymph 0.97 Performed By: #### L100.0100 #### [facility] [address] [place], [place], [address] BASIC METABOLIC Collected: 05/18/2018 Status: F Source: MIGUEL ÁNGEL PROFILE (BMP) 10:05 AM [facility] REPOSITORY TYPE CODE TESTS RESULT OUT OF RANGE REFERENCE UNITS LAB L501.0100 74-106 mg/dL High GLU 231 Result Comment: Glucose result greater than or equal to 200 mg/dL suggests DIABETES MELLITUS per A.D.A. criteria. Please note revised GLUCOSE reference range effective 2017. LAB L501.1000 7-18 mg/dL High BUN 39 LAB L501.1100 0.70-1.30 mg/dL High CREAT,SERUM 2.37 Result Comment: The validity of the calculated GFR AND GFRAA in patients over 70 years has not been determined. Clinical correlation is essential. LAB L501.1110 >60 mL/min Low EST GFR 29 Result Comment: Non- GFR Calc LAB L501.1115 >60 mL/min Low EST GFR - AA 35 Result Comment: GFR Calc LAB L501.1255 ml/min Normal Estimated CRCL 27.81 LAB L501.1300 10-20 RATIO Normal BUN/CRE 16.5 LAB L501.2200 8.5-10 mg/dL Normal .1 CA 9.7 LAB L501.5300 136-14 mmol/L Normal 5 NA 138 LAB L501.5600 3.5-5. mmol/L High 1 K 5.3 LAB L501.5900 98-107 mmol/L Normal CL 104 LAB L501.6100 21.0-3 mmol/L Normal 2.0 CO2 24.0 LAB L501.6200 5-15 Normal GAP 10 Performed By: #### L500.2500 #### [facility] [address] [place], [address] ABDOMEN/PELVIS WITHOUT Observed: 05/18/2018 Status: F Source: MIGUEL ÁNGEL CONT 9:46 AM [facility] REPOSITORY [facility] Imaging Services [address] [place] [address] Abdomen/Pelvis without Cont MR#: [id number] Acct: [id number] Name: SAL AGUILAR Rep #: [id number] : 1945 M 73 From: Maxi Austin MD PCP: Katsaros,Peter Status: REG ER Study: Abdomen/Pelvis without Cont Date of Exam: 05/18/18 Exam# [id number] Ordering Dr: Aleida Escamilla MD STUDY: CT ABDOMEN AND PELVIS WITHOUT CONTRAST REASON FOR EXAM: Male, 73 years old. Right lower quadrant pain. RADIATION DOSAGE (If Supplied By Facility): CTDIvol = ( 8.62 ) mGy, DLP = ( 491.01 ) mGycm TECHNIQUE: Transaxial images were obtained from the dome of the diaphragm to the symphysis pubis without oral contrast, and without intravenous contrast. Sagittal and coronal images were reconstructed. Individualized dose optimization techniques were used for this CT. COMPARISON: None. FINDINGS: Minimal degree of the increased markings at the lung bases worse on the right side this most likely secondary to scarring. Coronary artery calcification. Normal liver. Normal gallbladder and extrahepatic biliary system. Normal spleen. Normal pancreas. Normal bilateral adrenal glands. There is evidence of right perinephric stranding. Small amount of fluid is seen in the inferior posterior right perinephric space. There is engorgement of the right kidney. Mild to moderate degree of right hydronephrosis due to a 3 mm calculus in the midportion of the right ureter. There is also evidence of a 5 mm calculus in the midportion the right ureter just distal to the 3 mm calculus. Nonobstructive right intrarenal calculi. The larger measures 7.3 mm. Atrophy of the left kidney. Normal visualized stomach. Normal small intestine. Normal colon. The appendix is visualized and appears normal. There is diffuse atherosclerotic calcification of the abdominal aorta and its major visceral branches, without a demonstrated aneurysm. Normal inferior vena cava. There is borderline retroperitoneal lymphadenopathy with enlarged nodes no greater than 10mm in the short axis diameter. Normal urinary bladder. There are prostatic calcifications. The prostate is enlarged. It measures 4.5 cm x 4.7 cm. There is a small umbilical hernia containing fat. Small bilateral inguinal hernias containing fat right greater than left. There are diffuse degenerative changes of the visualized lumbar spine. CT/Abdomen/Pelvis without Cont IMPRESSION: There is a 2 mm and 5 mm obstructive calculi in the midportion of the right ureter causing right hydronephrosis and right hydroureter with the right perinephric fat stranding as well as a small amount of fluid in the posterior right pararenal space. Nonobstructive right intrarenal calculus. Electronically Signed: Maxi Austin MD at 11:10 EDT Tel [phone], Service support , CC: Aleida Escamilla MD; Crow Serrato Agronomy Specialist: Signed CREATININE, UR RANDOM Collected: 05/04/2018 Status: F Source: [facility] 9:56 AM SYSTEM REPOSITORY TYPE CODE TESTS RESULT OUT OF REFERENCE UNITS RANGE LAB CRTRU No Range mg/dL Creatinine, 155.4 Ur Random Performed By: #### HEMDF, CRTUR, TPUR, RENL3 #### [facility] [address] [place] [address] #### PTH3 #### [facility] [address] [place] [address] PROTEIN, UR RANDOM Collected: 05/04/2018 Status: F Source: [facility] 9:56 AM [facility] REPOSITORY TYPE CODE TESTS RESULT OUT OF REFERENCE UNITS RANGE LAB URTP No Range mg/dL High Protein, Ur 18 Random Performed By: #### HEMDF, CRTUR, TPUR, RENL3 #### [facility] [address] [place] [address] #### PTH3 #### [facility] [address] [place] [address] HEMOGRAM W/ AUTODIFF Collected: 05/04/2018 Status: F Source: [facility] 9:54 AM SYSTEM REPOSITORY TYPE CODE TESTS RESULT OUT OF REFERENCE UNITS RANGE LAB IWBC 3.6-10.7 10*3/uL WBC Normal 5.0 LAB RBC 4.40-5.90 10*6/uL RBC Normal 4.85 LAB HGB 13.0-18.0 g/dL Hemoglobin Normal 15.2 LAB HCT 40.0-52.0 % Hematocrit Normal 45.9 LAB MCV 80.0-98.0 fL MCV Normal 94.6 LAB MCH 26.0-34.0 pg MCH Normal 31.4 LAB MCHC 32.0-36.0 % MCHC Normal 33.2 LAB RDW 11.5-14.5 % RDW Normal 13.3 LAB PLT 140-440 10*3/uL Platelet Normal 158 LAB MPV 7.4-10.4 fL MPV Normal 8.0 LAB GRAN% 40.0-80.0 % Granulocytes Normal 66.2 LAB LYMP% 20.0-40.0 % Low Lymphocytes 18.9 LAB MONO% 2.0-10.0 % Monocytes Normal 9.8 LAB EOS% 1.0-6.0 % Eosinophils Normal 4.2 LAB BAS% 0.0-2.0 % Basophils Normal 0.9 LAB ANC 1.8-7.0 10*3/uL Abs Normal Neutrophile Cnt 3.3 LAB ALC 1.0-4.3 10*3/uL Low Abs Lymph Cnt 0.9 LAB AMC 0.0-0.8 10*3/uL Abs Monocyte Normal Cnt 0.5 LAB AEC 0.0-0.5 10*3/uL Abs Eosin Cnt Normal 0.2 LAB ABC 0.0-0.2 10*3/uL Abs Baso Cnt Normal 0.0 Performed By: #### HEMDF, CRTUR, TPUR, RENL3 #### [facility] [address] [place] [address] #### PTH3 #### [facility] [address] [place] [address] RENAL FUNCTION Collected: 05/04/2018 Status: F Source: [facility] 9:54 AM SYSTEM REPOSITORY TYPE CODE TESTS RESULT OUT OF RANGE REFERENCE UNITS LAB NA3 137-145 mmol/L Sodium Normal 140 LAB K3 3.5-5.1 mmol/L Normal Potassium 5.0 LAB CL3 98-107 mmol/L Chloride Normal 103 LAB CO23 22-30 mmol/L Carbon Normal Dioxide 26 LAB ANIN3 NA Anion Gap 11 LAB GLUC3 70-100 mg/dL High Glucose 173 LAB BUN3 7-20 mg/dL High Urea Nitrogen 30 LAB CRET3 0.52-1.25 mg/dL High Creatinine 1.64 LAB GF3BR >60 mL/min eGFR 49.8 LAB GF3WR >60 mL/min eGFR OTHER 41.1 Result Comment: Source- MDRD equation with creatinine calibration to IDMS(NKDEP) eGFR not recommended for drug dose adjustment LAB CA3 8.4-10.4 mg/dL Normal Calcium 9.7 LAB ALB3 3.5-5.0 g/dL Normal Albumin, Serum 3.8 LAB PHOS3 2.5-4.5 mg/dL Normal Phosphorus 3.7 Performed By: #### HEMDF, CRTUR, TPUR, RENL3 #### [facility] [address] [place] [address] #### PTH3 #### [facility] [address] [place] [address] PTH, INTACT Collected: 05/04/2018 Status: F Source: [facility] 9:54 AM SYSTEM REPOSITORY TYPE CODE TESTS RESULT OUT OF RANGE REFERENCE UNITS LAB PTH3 15.0-63.0 pg/mL Normal PTH, Intact 27.1 Performed By: #### HEMDF, CRTUR, TPUR, RENL3 #### [facility] [address] [place] [address] #### PTH3 #### [facility] [address] [place] [address] PROGRESS Observed: 11/24/2017 Status: COMPLETED Source: ORINDA 10:42 AM [facility] REPOSITORY HNO ID: [id number] Author: Sony Sevilla MD Service: (none) Author Type: Physician Type: Progress Notes Filed: 11/27/2017 10:56 AM Note Text: Follow-up 72 year-old male, patient of Dr. Crow Serrato, with insulin-requiring type 2 diabetes mellitus since 2007, hyperlipidemia, hypertension, CAD. He notes the glucose levels are good at home. Eye exam in 01/2017 showed no diabetic retinopathy. Had a flu shot last fall. Has history of CAD, has had PTCA/stents. History of stroke, has residual left hand and leg tingling. Uses Quat-E Contour meter. Medication list, insulin doses reviewed with the patient, reconciled. Family history notable for stroke, heart disease, hyperlipidemia, diabetes, arthritis, asthma, and breast cancer. Non-smoker, denies alcohol use. Allergic to melon flavor, pumpkin, has hay fever. Checks 3x daily. His chemical production technician is Dr. Mario, rn l and d is Dr. Mancilla. Notes no recent significant hypoglycemia. Current Outpatient Prescriptions on File Prior to Visit: amLODIPine (NORVASC) 2.5 mg tablet Take 2 tablets by mouth once daily. insulin lispro (HUMALOG) 100 unit/mL injection 4 units sc at breakfast and lunch, 6 units at supper. LANTUS 100 unit/mL injection Inject 13 units subcutaneously daily at bedtime cyanocobalamin (VITAMIN B-12) 1,000 mcg/mL soln Inject 1,000 mcg intramuscularly once every month. alpha tocopheryl acetate (VITAMIN E) 400 unit capsule Take 400 Units by mouth once daily. famotidine (PEPCID) 20 mg tablet Take 20 mg by mouth twice daily. metFORMIN (GLUCOPHAGE) 1,000 mg tablet Take 0.5 tablets by mouth twice daily with meals. COMPOUNDED PRESCRIPTION Easy touch teststrips, Test blood glucose 6 times daily Insulin Syringe-Needle U-100 (EASY TOUCH) 0.3 mL 30 x 5/16 syrg 1 Each once daily. Aspirin 81 mg Tab Take 81 mg by mouth once daily. clopidogrel (PLAVIX) 75 mg tablet Take 75 mg by mouth once daily. propranolol 80 mg tablet Take 80 mg by mouth twice daily. simvastatin 80 mg tablet Take 80 mg by mouth daily at bedtime. albuterol HFA (VENTOLIN HFA) 90 mcg/actuation inhaler Inhale 2 Puffs as instructed every 4 hours as needed. folic acid 800 mcg tablet Take 400 mcg by mouth once daily. ASCORBIC ACID (VITAMIN C ORAL) Take 1 tablet by mouth once daily. diphenhydrAMINE 25 mg capsule Take 25 mg by mouth every 6 hours as needed. lisinopril 20 mg tablet Take 1.5 tablets by mouth once daily. ALLERGIES Allergen Reactions - Hay Fever [Seasonal* Other: See Comments Sneezing, watery eyes - Melon Flavor Swelling, Itching Throat - Pumpkin Itching PAST MEDICAL HISTORY Diagnosis Date - CAD (coronary artery disease) - Nephrolithiasis - Stroke (HCC) left arm and leg tingling PAST SURGICAL HISTORY Procedure Laterality Date - CATARACT EXT; EYEONICS IOL SYS bilateral - GLOBAL ESWL KIDNEY 2008 - REPAIR INGUINAL HERNIA 1991 - TONSILLECTOMY HX Review of systems: Patient notes no weight changes, fever, fatigue, weakness, change in balance or sensation, visual problems, dizziness, trouble swallowing, nasal difficulties, shortness of breath, chest pain, foot or leg problems, skin lesions, abdominal pain, diarrhea, constipation, urinary problems, incontinence, joint pains, anxiety, depression. Remainder of review of systems was unremarkable. BP 130/68 (BP Site: Left Arm, BP Position: Sitting, BP Cuff Size: Large Adult) Pulse 61 Ht 177 cm (5' 9.69) Wt 78.8 kg (173 lb 12.8 oz) SpO2 99% BMI 25.16 kg/m2 Healthy-appearing male in no distress. Blood pressure normal, pulse regular. Weight up 2 pounds since 11/2016. Height stable. Skin: Skin color, texture, turgor normal, no suspicious rashes or lesions Head: normocephalic, no masses, lesions, tenderness or abnormalities Eyes: Anicteric sclera. Pupils are equally round. Extraocular movements are intact. Ears: not examined Nose/Sinuses: Nares normal. No drainage or sinus tenderness. Oropharynx: Lips, mucosa, and tongue normal, teeth and gums not examined. Neck: Supple, no adenopathy; no visible thyroid enlargement. Lungs: Breathing unlabored. Heart: RRR. No ectopy Abdomen: deferred Musculoskeletal: Spine range of motion not tested. Muscular strength intact, No joint swelling, deformity, or tenderness Neuro: Gait normal. Feet:Shoes and socks removed, No deformities, ulcers, calluses, normal distal pulses and sensation. Patient has some subjective sensations of neuropathy, however. Labs done 10/05/2017 showed A1C 7.3%, cholesterol 120, TG 139, HDL 34, LDL 58, normal CMP except for creatinine 1.4, eGFR 49, TSH 2.36. IMPRESSION: ? Type 2 diabetes mellitus, insulin-requiring - good control. Continue metformin and current insulin doses. Stop metformin if creatinine > 1.6. ? Hypertension - reasonably good control ? CAD - quiescent ? Hyperlipidemia - continue statin therapy ? CKD3 - stable PLAN: ? Continue current insulin doses. ? Continue metformin. ? Send in blood sugars for review periodically ? See us again in 6 months. ? Get diabetic eye exam updated. Sony Sevilla MD CNOV Observed: 11/24/2017 Status: COMPLETED Source: ORINDA 10:25 AM [facility] REPOSITORY Office Visit (ENDMED) KAITLINSAL ALONSO ([id number]) 1945 M Date Time Provider Department 11/24/17 10:25 AM SONY SEVILLA ENDMED During your visit today, we recorded the following information about you: Pulse Blood pressure Weight Height 61/minute 130/68 78.8 kg 1.77 m Sony Sevilla MD, 11/27/2017 10:56 AM Signed Follow-up 72 year-old male, patient of Dr. Crow Serrato, with insulin-requiring type 2 diabetes mellitus since 2007, hyperlipidemia, hypertension, CAD. He notes the glucose levels are good at home. Eye exam in 01/2017 showed no diabetic retinopathy. Had a flu shot last fall. Has history of CAD, has had PTCA/stents. History of stroke, has residual left hand and leg tingling. Uses Quat-E Contour meter. Medication list, insulin doses reviewed with the patient, reconciled. Family history notable for stroke, heart disease, hyperlipidemia, diabetes, arthritis, asthma, and breast cancer. Non-smoker, denies alcohol use. Allergic to melon flavor, pumpkin, has hay fever. Checks 3x daily. His chemical production technician is Dr. Mario, rn l and d is Dr. Mancilla. Notes no recent significant hypoglycemia. Current Outpatient Prescriptions on File Prior to Visit: amLODIPine (NORVASC) 2.5 mg tablet Take 2 tablets by mouth once daily. insulin lispro (HUMALOG) 100 unit/mL injection 4 units sc at breakfast and lunch, 6 units at supper. LANTUS 100 unit/mL injection Inject 13 units subcutaneously daily at bedtime cyanocobalamin (VITAMIN B-12) 1,000 mcg/mL soln Inject 1,000 mcg intramuscularly once every month. alpha tocopheryl acetate (VITAMIN E) 400 unit capsule Take 400 Units by mouth once daily. famotidine (PEPCID) 20 mg tablet Take 20 mg by mouth twice daily. metFORMIN (GLUCOPHAGE) 1,000 mg tablet Take 0.5 tablets by mouth twice daily with meals. COMPOUNDED PRESCRIPTION Easy touch teststrips, Test blood glucose 6 times daily Insulin Syringe-Needle U-100 (EASY TOUCH) 0.3 mL 30 x 5/16ANDquot; syrg 1 Each once daily. Aspirin 81 mg Tab Take 81 mg by mouth once daily. clopidogrel (PLAVIX) 75 mg tablet Take 75 mg by mouth once daily. propranolol 80 mg tablet Take 80 mg by mouth twice daily. simvastatin 80 mg tablet Take 80 mg by mouth daily at bedtime. albuterol HFA (VENTOLIN HFA) 90 mcg/actuation inhaler Inhale 2 Puffs as instructed every 4 hours as needed. folic acid 800 mcg tablet Take 400 mcg by mouth once daily. ASCORBIC ACID (VITAMIN C ORAL) Take 1 tablet by mouth once daily. diphenhydrAMINE 25 mg capsule Take 25 mg by mouth every 6 hours as needed. lisinopril 20 mg tablet Take 1.5 tablets by mouth once daily. ALLERGIES Allergen Reactions - Hay Fever [Seasonal* Other: See Comments Sneezing, watery eyes - Melon Flavor Swelling, Itching Throat - Pumpkin Itching PAST MEDICAL HISTORY Diagnosis Date - CAD (coronary artery disease) - Nephrolithiasis - Stroke (HCC) left arm and leg tingling PAST SURGICAL HISTORY Procedure Laterality Date - CATARACT EXT; EYEONICS IOL SYS bilateral - GLOBAL ESWL KIDNEY 2008 - REPAIR INGUINAL HERNIA 1991 - TONSILLECTOMY HX Review of systems: Patient notes no weight changes, fever, fatigue, weakness, change in balance or sensation, visual problems, dizziness, trouble swallowing, nasal difficulties, shortness of breath, chest pain, foot or leg problems, skin lesions, abdominal pain, diarrhea, constipation, urinary problems, incontinence, joint pains, anxiety, depression. Remainder of review of systems was unremarkable. BP 130/68 (BP Site: Left Arm, BP Position: Sitting, BP Cuff Size: Large Adult) Pulse 61 Ht 177 cm (5' 9.69ANDquot;) Wt 78.8 kg (173 lb 12.8 oz) SpO2 99% BMI 25.16 kg/m2 Healthy-appearing male in no distress. Blood pressure normal, pulse regular. Weight up 2 pounds since 11/2016. Height stable. Skin: Skin color, texture, turgor normal, no suspicious rashes or lesions Head: normocephalic, no masses, lesions, tenderness or abnormalities Eyes: Anicteric sclera. Pupils are equally round. Extraocular movements are intact. Ears: not examined Nose/Sinuses: Nares normal. No drainage or sinus tenderness. Oropharynx: Lips, mucosa, and tongue normal, teeth and gums not examined. Neck: Supple, no adenopathy; no visible thyroid enlargement. Lungs: Breathing unlabored. Heart: RRR. No ectopy Abdomen: deferred Musculoskeletal: Spine range of motion not tested. Muscular strength intact, No joint swelling, deformity, or tenderness Neuro: Gait normal. Feet:Shoes and socks removed, No deformities, ulcers, calluses, normal distal pulses and sensation. Patient has some subjective sensations of neuropathy, however. Labs done 10/05/2017 showed A1C 7.3%, cholesterol 120, TG 139, HDL 34, LDL 58, normal CMP except for creatinine 1.4, eGFR 49, TSH 2.36. IMPRESSION: ? Type 2 diabetes mellitus, insulin-requiring - good control. Continue metformin and current insulin doses. Stop metformin if creatinine ANDgt; 1.6. ? Hypertension - reasonably good control ? CAD - quiescent ? Hyperlipidemia - continue statin therapy ? CKD3 - stable PLAN: ? Continue current insulin doses. ? Continue metformin. ? Send in blood sugars for review periodically ? See us again in 6 months. ? Get diabetic eye exam updated. MD Sony Benoit MD, MD 11/24/2017 10:55 AM Signed Continue current medications. See us again in 6 months. Get diabetic eye exam done again in 01/2018. Referring Provider: SONY SEVILLA [[id number]] Allergies As of Date: 11/24/2017 Noted Allergy Reaction HAY FEVER (SEASONAL ALLERGIES) 04/27/2014 14 - Other: See Comments Comments: Sneezing, watery eyes MELON FLAVOR 11/25/2012 7 - Swelling 9 - Itching Comments: Throat PUMPKIN 04/27/2014 9 - Itching Date Reviewed: 11/24/2017 Reviewed by: Phillip Hammer Ma - Fully Assessed Reason for Visit: Diabetes [34] Primary Visit Diagnosis:Type 2 diabetes mellitus with stage 3 chronic kidney disease, with long-term current use of insulin (HCC) [E11.22, N18.3, Z79.4] Other Visit Diagnoses:CKD (chronic kidney disease) stage 3, GFR 30-59 ml/min [N18.3] Essential hypertension [I10] Pure hypercholesterolemia [E78.00] Prescriptions as of 11/24/2017 Sig: AMLODIPINE 2.5 MG TABLET Take 2 tablets by mouth once * INSULIN LISPRO (U-100) 100 UN* 4 units sc at breakfast and l* LANTUS U-100 INSULIN 100 UNIT* Inject 13 units subcutaneousl* CYANOCOBALAMIN (VIT B-12) 1,0* Inject 1,000 mcg intramuscula* VITAMIN E 400 UNIT CAPSULE Take 400 Units by mouth once * FAMOTIDINE 20 MG TABLET Take 20 mg by mouth twice cherelle* METFORMIN 1,000 MG TABLET Take 0.5 tablets by mouth twi* COMPOUNDED PRESCRIPTION Easy touch teststrips, Test b* INSULIN SYRINGE-NEEDLE U-100 * 1 Each once daily. ASPIRIN 81 MG TABLET Take 81 mg by mouth once anderson* CLOPIDOGREL 75 MG TABLET Take 75 mg by mouth once anderson* PROPRANOLOL 80 MG TABLET Take 80 mg by mouth twice cherelle* SIMVASTATIN 80 MG TABLET Take 80 mg by mouth daily at * ALBUTEROL SULFATE HFA 90 MCG/* Inhale 2 Puffs as instructed * FOLIC ACID 800 MCG TABLET Take 400 mcg by mouth once da* VITAMIN C ORAL Take 1 tablet by mouth once d* DIPHENHYDRAMINE 25 MG CAPSULE Take 25 mg by mouth every 6 h* LISINOPRIL 20 MG TABLET Take 1.5 tablets by mouth onc* Problem List As Of Date 11/24/2017 Noted Resolved Type 2 diabetes mellitus with stage 3 chronic k*INVALID FOR* More... Hypertension [I10] INVALID FOR* Pure hypercholesterolemia [E78.00] INVALID FOR* CAD (coronary artery disease) [I25.10] INVALID FOR* More... Peripheral vascular disease [I73.9] INVALID FOR* More... CKD (chronic kidney disease) stage 3, GFR 30-59*INVALID FOR* Vitamin D deficiency [E55.9] INVALID FOR* Mild atherosclerosis of carotid artery, bilater*INVALID FOR* More... Other instructions from your clinician: Continue current medications. See us again in 6 months. Get diabetic eye exam done again in 01/2018. Follow-up and Disposition History Recorded Encounter Status:Closed by SONY SEVILLA MD on 11/27/17 CAROTID DUPLEX Observed: 10/14/2017 Status: F Source: [place] ULTRASOUND 7:39 PM [facility] REPOSITORY [facility] Cardiovascular Services [address] [place] [address] [place] [address] Carotid Duplex Ultrasound 10/14/17 1214 MR#: [id number] Acct: [id number] Name: SAL AGUILAR Rep #: [id number] : 1945 72 From: Ace Espinoza MD Attending Dr: Crow Serrato Status: REG CLI Ordering Dr: Crow Serrato Date: 10/14/17 Location: US Sex: M C Admitted: Reason For Study: I65.23 Rt. Velocities/BP Lt. Velocities/BP Prox CCA 116/17.6 cm/sec. Prox CCA 115/13.4 cm/sec. Mid CCA 110/13.5 cm/sec. Mid CCA 104/10.2 cm/sec. Dist CCA 80.9/16.4 cm/sec. Dist CCA 65.6/9.82 cm/sec. Prox ICA 115/25.8 cm/sec. Prox ICA 71.5/11.1 cm/sec. Mid ICA 101/18.2 cm/sec. Mid ICA 55.1/14.9 cm/sec. Dist ICA 101/21.7 cm/sec. Dist ICA 75.0/22.3 cm/sec. Rt. ICA/CCA = 1.0. Lt. ICA/CCA = .7. Prox ECA 127 cm/sec. Prox ECA 132 cm/sec. Rt. Vert. 44.0/12.3 cm/sec. Lt. Vert. 63.9/7.62 cm/sec. Right Extracranial There is heterogeneous, irregular atherosclerotic plaque noted in the right common carotid artery. There is heterogeneous, irregular atherosclerotic plaque noted in the right internal carotid artery. There is homogeneous, smooth atherosclerotic plaque noted in the right external carotid artery. Antegrade flow is noted in the right vertebral artery. Left Extracranial There is heterogeneous, irregular atherosclerotic plaque noted in the left common carotid artery. There is heterogeneous, irregular atherosclerotic plaque noted in the left internal carotid artery. There is heterogeneous, irregular atherosclerotic plaque noted in the left external carotid artery. Antegrade flow is noted in the left vertebral artery. Procedure Carotid Duplex 62027. The exam was diagnostic. Exam performed in department. Interpretation Summary Heavy plaque burden is noted in the internal carotid arteries bilaterally. Mild (<50%) stenosis right extracranial internal carotid. Mild (<50%) stenosis left extracranial internal carotid. Flow within the vertebral arteries is antegrade bilaterally. Ordering Physician: Crow Serrato Referring Physician: Crow Serrato Performed By: Myron Fink, RVT 10/14/171937 Date Ace Espinoza MD CC: Crow Serrato Date Dictated: 10/14/17 1214 Date Transcribed: 10/14/171937 Agronomy Specialist: Signed HEAD/NECK SOFT TISSUE Observed: 10/14/2017 Status: F Source: THAYNE 11:53 AM [facility] REPOSITORY [facility] Imaging Services [address] [place] [address] 16614 Head/Neck Soft Tissue MR#: [id number] Acct: [id number] Name: SAL AGUILAR Rep #: [id number] : 1945 M 72 From: Maxi Austin MD PCP: Crow Serrato Status: REG CLI Study: Head/Neck Soft Tissue Date of Exam: 10/14/17 Exam# [id number] Ordering Dr: Crow Serrato STUDY: SUPERFICIAL ULTRASOUND - RIGHT CERVICAL REGION. REASON FOR EXAM: Male, 72 years old. Swelling of the right- sided and neck. TECHNIQUE: A superficial ultrasound was performed with real- time and static rodriguez-scale imaging. COMPARISON: None. FINDINGS: Multiple images were obtained. There is evidence of a 7 mm x 6 mm x 3 mm benign appearing lymph node. No mass lesion is seen. US/Head/Neck Soft Tissue IMPRESSION: 7 mm x 6 mm x 3 mm benign-appearing right cervical lymph node. No other abnormality is seen. Electronically Signed: Maxi Austin MD at 15:47 EST Tel [phone], Service support , CC: Crow Serrato Agronomy Specialist: Signed ALLERGIES ALLERGIES DATE TYPE / CODE NAME / CODE REACTION SEVERITY SOURCE 09/22/2018 Drug Opioids - Vomiting Unknown [facility] 091224(SNOM Analogues/F61556 Repository ED CT) 0268(RXNORM) 09/22/2018 Drug promethazine/F00 Unknown SV [place] [facility] [facility] Allergy/221 0351972(RXNORM) Hospital 399965(SNOM Repository ED CT) 09/22/2018 Drug hydromorphone/F0 Unknown SV [place] [facility] Allergy/416 64603938(RXNORM) Hospital 905355(SNOM Repository ED CT) 09/22/2018 Drug melon/[id number] Unknown SV [place] [facility]ergy/416 (RXNORM) Hospital 200652(SNOM Repository ED CT) 05/15/2017 Drug No Known Unknown [facility] Allergy/416 Allergies/N33112 Hospital 983651(SNOM 0388(RXNORM) Repository ED CT) 04/27/2014 Environ/420 SEASONAL OTHER: SEE C [facility] 879137(SNOM ALLERGIES [facility] [place] ED CT) Repository 04/27/2014 DRUG PUMPKIN ITCHING [facility] INGREDI/419 [facility] [place] 852084(SNOM Repository ED CT) 11/25/2012 DRUG MELON FLAVOR SWELLING [facility] INGREDI/419 [facility] [place] 103400(SNOM Repository ED CT) ENCOUNTERS ENCOUNTERS ADMIT/DISCHARGE ACCOUNT NUMBER ADMITTING ENCOUNTER LOCATION SOURCE CLASS 09/30/2018 [id number] [facility] ding:PSN Repository 09/26/2018 [id number] [facility] ding:ONC Repository 09/23/2018 [id number] Ambulatory [facility] Repository 09/22/2018/09/22/19 [id number] Ambulatory BMSBuilding: [place] [address] Repository 09/21/2018 [id number] Ambulatory [facility] Repository 08/30/2018 [id number] Ambulatory [facility] ding:CT Repository 08/18/2018 [id number] Ambulatory BMSBuilding: [place] [facility] Repository 08/18/2018 [id number] Ambulatory [facility] ding:PSN Repository 08/10/2018 [id number] Ambulatory [facility] Repository 06/30/2018/06/30/20 [id number] Ambulatory [address] Repository 06/27/2018 [id number] Ambulatory [facility] ding:RAD.FUT Repository URE 06/08/2018/06/08/20 [id number] Ambulatory [address] ding:SDCRoom Repository : AC12 06/06/2018 [id number] Ambulatory [facility] Repository 05/18/2018/05/18/20 [id number] Ambulatory [address] ding:SDC Repository 05/04/2018 [id number] Ambulatory [facility] Repository 12/28/2017 [id number] Ambulatory [facility] Repository 11/24/2017/11/25/19 [id number] Ambulatory [address] Repository 10/14/2017 [id number] Ambulatory [facility] ding:US Repository 10/06/2017 [id number] Ambulatory [facility] Repository PAYERS PAYERS ENCOUNTER GUARANTOR PAYER SUBSCRIBER SOURCE 09/30/2018 SAL Weiss Primary SAL Del Rosario [id number] Insurance:MEDICARE UMSTEADDOB: [facility]ly [facility] PART A [facility] [id number] Number: Repository [address]Mlb: [phone] [id number] [phone] () Date:2018-09-22 09/30/2018 Secondary SAL K [place] Insurance:BANKERS UMSTEADDOB: Community LIFE CASUALTYPolicy [id number] Hospital Number: Repository [id number] Date:2018-09-22 [address], [place] [address]WL: 09/30/2018 Tertiary NOT GIVENUNK [place] Insurance:SELF PAY [facility] Number: Effective Repository Date:2018-09-22 09/26/2018 SAL Weiss Primary SAL Abhishek [place] [id number] Insurance:MEDICARE UMSTEADDOB: Community [place] PART A BPolicy [id number] [place], [place] Number: Repository [address]Mat: [phone] [id number] [phone] () Date:2018-09-23 09/26/2018 Secondary SAL Abhishek [place] Insurance:BANKERS UMSTEADDOB: Community LIFE CASUALTYPolicy [id number] Hospital Number: Repository [id number] Date:2018-09-23 [address], [place] [address]KE: 09/26/2018 Tertiary NOT GIVENUNK [place] Insurance:SELF PAY [facility] Hospital Number: Effective Repository Date:2018-09-23 09/23/2018 Sal Weiss Primary [facility]:MedicarePol [place]DOB: System icy Number: Effective [id number] Repository [place] Date:2008-01-12 [place], [place] [address]Cok: () 09/23/2018 Secondary Sal Abhishek [facility] Insurance:MedicarePol [place]DOB: System icy Number: Effective [id number] Repository Date:2008-01-12 09/23/2018 Tertiary Sal Abhishek [facility] Insurance:Bankers Um[place]DOB: System Life CasualtyPolicy [id number] Repository Number: Effective Date: 09/22/2018 SAL Weiss Primary SAL K [place] [id number] Insurance:MEDICARE UMSTEADDOB: Community [place] PART A BPolicy [id number], [place] Number: Repository [address]Cnw: 330 [id number] [phone] () Date:2018-08-15 09/22/2018 Secondary SAL Weiss [place] Insurance:BANKERS UMSTEADDOB: Community LIFE CASUALTYPolicy [id number] Hospital Number: Repository [id number] Date:2018-08-15[address], [place] [address]CD: 09/22/2018 Tertiary NOT GIVENUNK [place] Insurance:SELF PAY Community [facility] Hospital Number: Effective Repository Date:2018-09-19 09/21/2018 Sal Weiss Primary Sal [facility] [place]D[facility]: Insurance:MedicarePol [place]DOB: System [id number] icy Number: Effective [id number] Repository [place] Date:2008-01-12 [place], [place] [address]Uaz: () 09/21/2018 Secondary Sal [facility] Insurance:MedicarePol [place]DOB: System icy Number: Effective [id number] Repository Date:2008-01-12 09/21/2018 Tertiary Sal [facility] Insurance:Bankers Um[place]DOB: System Life CasualtyPolicy [id number] Repository Number: Effective Date: 08/30/2018 SAL Weiss Primary SAL Abhishek [place] [id number] Insurance:MEDICARE UMSTEADDOB: Community [place] PART A [facility] [id number], [place] Number: Repository [address]Cmm: 330 [id number] [phone] () Date:2018-08-26 08/30/2018 Secondary SAL Abhishek [place] Insurance:BANKERS UMSTEADDOB: Community LIFE CASUALTYPolicy [id number] Hospital Number: Repository [id number] Date:2018-08-26[address], [place] [address]JQ: 08/30/2018 Tertiary NOT GIVENUNK [place] Insurance:SELF PAY Community [facility] Hospital Number: Effective Repository Date:2018-08-26 08/18/2018 SAL Weiss Primary SAL Weiss [place] [id number] Insurance:MEDICARE UMSTEADDOB: Community [place] PART A [facility] [id number], [place] Number: Repository [address]Ior: [phone] [id number] [phone] (HP) Date:2018-08-17 08/18/2018 Secondary SAL Weiss [place] Insurance:BANKERS UMSTEADDOB: Community LIFE CASUALTYPolicy [id number] Hospital Number: Repository [id number] Date:2018-08-[address] [address]SK: 08/18/2018 Tertiary NOT GIVENUNK [place] Insurance:SELF PAY [facility] Hospital Number: Effective Repository Date:2018-08-18 08/18/2018 SAL Weiss Primary SAL Weiss [place] [id number] Insurance:MEDICARE UMSTEADDOB: Community [place] PART A [facility] [id number], [place] Number: Repository [address]Jhf: 330 [id number] [phone] (HP) Date:2018-08-17 08/18/2018 Secondary SAL Weiss [place] Insurance:BANKERS UMSTEADDOB: Community LIFE CASUALTYPolicy [id number] Hospital Number: Repository [id number] Date:2018-08-[address], [place] [address]YT: 08/18/2018 Tertiary NOT GIVENUNK [place] Insurance:SELF PAY [facility] Hospital Number: Effective Repository Date:2018-08-17 08/10/2018 Sal Weiss Primary [facility] Insurance:MedicarePol [place]DOB: System icy Number: Effective [id number] Repository [address] Date:2008-01[address] [place], [place] [address]Fyn: () 08/10/2018 Secondary Sal Weiss [facility] Insurance:MedicarePol [place]DOB: System icy Number: Effective [id number] Repository Date:2008-01-12 08/10/2018 Tertiary Sal [facility] Insurance:Bankers [place]DOB: System Life CasualtyPolicy [id number] Repository Number: Effective Date: 06/27/2018 SAL Weiss Primary SAL Del Rosario [id number] Insurance:MEDICARE UMSTEADDOB: Community [place] PART A [facility] [id number] [place] Number: Repository [address]Wun: 330 [id number] [phone] (HP) Date:2018-06-23 06/27/2018 Secondary SAL Weiss [place] Insurance:BANKERS UMSTEADDOB: Community LIFE CASUALTYPolicy [id number] Hospital Number: Repository [id number] Date:2018-06-23 [address], [place] [address]WJ: 06/27/2018 Tertiary NOT GIVENUNK [place] Insurance:SELF PAY [facility] Hospital Number: Effective Repository Date:2018-06-23 06/08/2018 SAL Weiss Primary SAL Weiss [place] [id number] Insurance:MEDICARE UMSTEADDOB: Community [place] PART A [facility] [id number] Affairs [facility] Number: Repository [address]Zow: 330 [id number] [phone] () Date:2018-05-19 06/08/2018 Secondary SAL Weiss [place] Insurance:BANKERS UMSTEADDOB: Community LIFE CASUALTYPolicy [id number] Hospital Number: Repository [id number] Date:2018-05-19 [address], [place] [address]PZ: 06/08/2018 Tertiary NOT GIVENUNK [place] Insurance:SELF PAY [facility] Number: Effective Repository Date:2018-05-19 06/06/2018 Sal eWiss Primary Sal [facility] [place]DOB: Insurance:MedicarePol [place]DOB: System icy Number: Effective [id number] Repository [place] Date:2008-01[address]12 [place], [place] [address]Cas: () 06/06/2018 Secondary Sal [facility] Insurance:MedicarePol [place]DOB: System icy Number: Effective [id number] Repository Date:2008-01-12 06/06/2018 Tertiary Sal [facility] Insurance:Bankers [place]DOB: System Life CasualtyPolicy [id number] Repository Number: Effective Date: 05/18/2018 SAL Weiss Primary SAL Weiss [place] [id number] Insurance:MEDICARE UMSTEADDOB: Community [place] PART A BPolicy [id number] [place], [place] Number: Repository [address]Rcf: [phone] [id number] [phone] () Date:2018-05-18 05/18/2018 Secondary SAL Weiss [place] Insurance:BANKERS UMSTEADDOB: Community LIFE CASUALTYPolicy [id number] Hospital Number: Repository [id number] Date:2018-05-[address] [place] [address], [place] [address]KS: 05/18/2018 Tertiary JONO GIVENNUHA [place] Insurance:SELF PAY [facility] Number: Effective Repository Date:2018-05-18 05/04/2018 Sal Weiss Primary Sal [facility] [place]DOB: Insurance:MedicarePol [place]DOB: System icy Number: Effective [id number] Repository [place] Date:2008-01[address]12 [place], [place] [address]Goq: () 05/04/2018 Secondary Sal [facility] Insurance:MedicarePol [place]DOB: System icy Number: Effective [id number] Repository Date:2008-01-12 05/04/2018 Tertiary Sal [facility] Insurance:Bankers [place]DOB: System Life CasualtyPolicy [id number] Repository Number: Effective Date: 12/28/2017 Sal Weiss Primary Sal [facility] [place]DOB: Insurance:MedicarePol [place]DOB: System icy Number: Effective [id number] Repository [place] Date:2008-01-12 [place], [place] [address]Erl: () 12/28/2017 Secondary Sal Abhishek [facility] Insurance:MedicarePol [place]DOB: System icy Number: Effective [id number] Repository Date:2008-01-12 12/28/2017 Tertiary Sal Abhishek [facility] Insurance:Bankers [place]DOB: System Life CasualtyPolicy [id number] Repository Number: Effective Date: 10/14/2017 Sal Primary Sal [place] [id number] Insurance:MEDICARE [place]DOB: Community [place] PART A [facility] [id number] [place], [place] Number: Repository [address]Efd: [phone] [id number] [phone] () Date:2017-10-08 10/14/2017 Secondary Sal Del Rosario Insurance:BANKERS [place]DOB: Community LIFE CASUALTYPolicy [id number] Hospital Number: Repository [id number] Date:2017-10-08P [facility] [address] [place] [address]HU: 10/14/2017 Tertiary JONO Del Rosario Insurance:SELF PAY [facility] Number: Effective Repository Date:2017-10-08 10/06/2017 Sal K Primary Sal Abhishek [facility] Insurance:MedicarePol [place]DOB: System icy Number: Effective [id number] Repository [place] Date:2008-01-12 [place], [place] [address]Gxr: () 10/06/2017 Secondary Sal Abhishek [facility] Insurance:MedicarePol [place]DOB: System icy Number: Effective [id number] Repository Date:2008-01-12 10/06/2017 Tertiary Sal Abhishek [facility] Insurance:Bankers [place]DOB: System Life CasualtyPolicy [id number] Repository Number: Effective Date:
== END ==
PROVIDERS: Family Provider Internal Medicine; PCP Internal Medicine; Referring Provider Internal Medicine; Visit Provider Internal Medicine
DX: J98.4 Other disorders of lung (principal)
CPT/HCPCS: 71250

== ENCOUNTER → 2018-09-26 11:10 | Outpatient (CLI) | payer MEDICARE, OTHER, SELFPAY ==
[2018-09-22 09:55] VITALS: BMI 25.8
--- NOTE | 2018-09-26 07:18 | PET_ITS ---
EXAMINATION: FDG PET CT INDICATIONS: A 73-year-old male with reported history of pulmonary nodularity. COMPARISON EXAMINATION: CT of the chest report dated 08/30/18. TECHNIQUE: Following the intravenous administration of 14.88 mCi of F-18 deoxyglucose via the left forearm, multiplanar image acquisitions of the neck, chest, abdomen and pelvis to level of mid thigh, obtained at one hour post radiopharmaceutical administration contemporaneously interpreted with the current CT of the neck, chest, abdomen and pelvis to level of mid thigh, dated 09/26/[address] of the chest report dated 08/30/18 reveal: SERUM GLUCOSE LEVEL: 84 mg/dl. HEIGHT: 70 inches. WEIGHT: 180 lbs. FINDINGS: 1. There is no quantitative scintigraphic evidence of abnormal increased glucose metabolism within the context of the right hemithorax pulmonary parenchyma, right upper lobe to correlate with anatomic changes defined on CT of the chest report dated 08/30/18 2. Normal physiologic distribution of the radiopharmaceutical is apparent in the hepatic (*) and splenic parenchyma, both renal units, bladder and visualized intestinal tract. There is an asymmetric decrease in glucose metabolism manifest in the posteromedial aspect of the left cerebellar hemisphere. There is otherwise preserved glucose concentration noted in the remaining cerebral cortical and subcortical structures. Diffuse intestinal tract activity is noted throughout all four quadrants of the abdominal-pelvic retroperitoneum, mesentery consistent with normal physiologic distribution of the radiopharmaceutical extending to the level of the distal rectal vault. Pertinent CT findings are as follows. CHEST: Bilateral subcentimeter axillary soft tissue densities demonstrate no evidence of facilitated glucose metabolism. Coronary arterial calcification is observed. Atherosclerotic calcification is defined in the thoracic aorta without evidence of dilatation, aneurysm formation. Subcentimeter mediastinal soft tissue densities are ametabolic. ABDOMEN AND PELVIS: Atherosclerotic calcification is defined in the abdominal aorta without evidence of dilatation, aneurysm formation. Pelvic arterial calcification is observed. Bilateral fat-containing inguinal hernias are noted. Right-left inguinal soft tissue densities are non-glucose avid. Calcifications are defined within the prostate gland without evidence of quantitatively significant enhanced glucose metabolism. SKELETAL: Degenerative changes defined in the cervical, thoracic and lumbar spine demonstrate no evidence for glucose hypermetabolism. PET/PET/CT Tumor Base -Thigh Init IMPRESSION: 1. NEGATIVE EXAMINATION. There is no quantitative scintigraphic evidence of abnormal increased glucose metabolism within the context of the right hemithorax pulmonary parenchyma, right upper lobe to correlate with anatomic changes defined on CT of the chest report dated 08/30/18. 2. Anatomic stability may be ensured in the nonglucose avid right hemithorax pulmonary parenchyma, right upper lobe parenchymal density with repeat CT of the thorax in three-six months. (Martine, Seminars in Thoracic and Cardiovascular Surgery 14:292, 2002). 3. Prominent intestinal tract distribution of radiopharmaceutical is most consistent with physiologic concentration of the radiotracer. If intraluminal soft tissue mass formation is a diagnostic consideration, correlation with CT of the abdomen and pelvis with intravenous contrast is recommended. (Domarva et al, Journal of Nuclear Medicine, 30:S276, 2003). Electronic Signature Sony Mario D.O. Electronically Signed: Sony Mario DO at 23:32 EST Tel , Service support ,
== END ==
PROVIDERS: Family Provider Internal Medicine; PCP Internal Medicine; Referring Provider Internal Medicine; Visit Provider Internal Medicine
DX: R91.1 Solitary pulmonary nodule (principal)
CPT/HCPCS: 78815; A9552

== ENCOUNTER → 2018-09-30 10:29 | Outpatient (CLI) | payer MEDICARE, OTHER, SELFPAY ==
[2018-09-22 09:55] VITALS: BMI 25.8
[2018-09-30 10:45] VITALS: PULSE 60; PULSE 61; PULSE 71; PULSE 73; PULSE 74; PULSE 75; O2SAT 92; O2SAT 93; O2SAT 96; O2SAT 97
--- NOTE | 2018-09-30 13:07 | PCM.PSN.6M ---
PSN 6 Minute Walk Test - 6 Minute Walk Test 6 Minute Walk Test: 6 Minute Walk Test PSN:6-Minute Walk Test Start: 09/30/18 11:19 Freq: Status: Active Protocol: [id number].[id number] Document 09/30/18 10:45 HG (Rec: 09/30/18 11:23 HG [id number]) 6 Minute Walk Test Date Performed 09/30/18 Time Performed 10:45 Height 5 ft 10 in Weight: 180 lb Weight in Pounds [address]: Derrick Morales Assistive device used: None Pre-test Oxygen Delivery Method Room Air Pulse Ox (%) 97 Pulse Rate (60-100 beats/min) 61 Dyspnea Ciic Scale (0-10) 2 Exertion Cici Scale (6-20) 8 1st minute Oxygen Delivery Method Room Air Pulse Ox (%) 97 Pulse Rate (60-100 beats/min) 60 2nd minute Oxygen Delivery Method Room Air Pulse Ox (%) 97 Pulse Rate (60-100 beats/min) 74 3rd minute Oxygen Delivery Method Room Air Pulse Ox (%) 93 Pulse Rate (60-100 beats/min) 75 4th minute Oxygen Delivery Method Room Air Pulse Ox (%) 92 Pulse Rate (60-100 beats/min) 75 5th minute Oxygen Delivery Method Room Air Pulse Ox (%) 96 Pulse Rate (60-100 beats/min) 73 6th minute Oxygen Delivery Method Room Air Pulse Ox (%) 96 Pulse Rate (60-100 beats/min) 73 Post-test Oxygen Delivery Method Room Air Pulse Ox (%) 97 Pulse Rate (60-100 beats/min) 71 Dyspnea Cici Scale (0-10) 2 Exertion Cici Scale (6-20) 11 Full Laps Walked 17 Partial Lap, Number of Tiles Walked 0 Total Distance Walked (ft) 1003 - Interpretation Interpretation: The patient ambulated 1003 feet over the course of 6 minutes beginning on room air without assistive devices or breaks. Pretesting oxygen saturation was noted to be 97% on room air. With ambulation, the jorgito oxygen saturation was 92%. This represents a significant exertional oxygen desaturation. - Recommendations Recommendations: There is no indication for the use of supplemental oxygen at this time. However, close interval follow-up is recommended, given the degree of oxygen desaturation noted during this study.
--- OUTSIDE RECORDS SUMMARY | 2018-12-04 19:13 | XMS RPT_ITS ---
:1945 Author Organization OHIP Support Name Relationship Address Phone KATIA TOMA Unavailable [address] + [place] [address] R Unavailable Unavailable Unavailable UMSTEAD, MARION Unavailable [address] + [place] [address] MONTALVO TOMA Unavailable [address] + [place] [address] R Unavailable Unavailable Unavailable UMSTEAD, MARION Unavailable [address] + [place] [address] CAROLINA MONTALVOIDI Unavailable Unavailable + [place] [address] R Unavailable Unavailable Unavailable UMSTEAD, MARION Unavailable [address] + [place] [address] CAROLINA MONTALVOIDI Unavailable Unavailable + R Unavailable Unavailable Unavailable UMSTEAD, MARION Unavailable [address] + [place] [address] Umstead, Marion Unavailable Unavailable + Katia Toma Unavailable . + [place] [address] R Unavailable Unavailable Unavailable UMSTEAD, MARION Unavailable [address] + [place] [address] Umstead, Marion Unavailable Unavailable + R Unavailable Unavailable Unavailable UMSTEAD, MARION Unavailable [address] + [place] [address] R Unavailable Unavailable Unavailable UMSTEAD, MARION Unavailable [address] + [place] [address] R Unavailable Unavailable Unavailable UMSTEAD, MARION Unavailable [address] + [place] [address] Umstead, Marion Unavailable Unavailable + R Unavailable Unavailable Unavailable UMSTEAD, MARION Unavailable [address] + [place] [address] R Unavailable Unavailable Unavailable UMSTEAD, MARION Unavailable [address] + [place] [address] Umstead, Marion Unavailable Unavailable + R Unavailable Unavailable Unavailable UMSTEAD, MARION Unavailable [address] + [place] [address] Umstead, Marion Unavailable Unavailable + Umstead, Marion Unavailable Unavailable + R Unavailable Unavailable Unavailable UMSTEAD, MARION Unavailable [address] + [place] [address] Care Team Providers Name Role Phone NOA ALFORD Attending Unavailable GAGANDEEP SEVILLA Attending Unavailable GAGANDEEP SEVILLA Referring Unavailable Randi Mancilla Attending Unavailable Crow Serrato Referring Unavailable Katsaros, Peter Primary Care Unavailable Randi Mancilla Attending Unavailable Crow Serrato Referring Unavailable Katsaros, Peter Primary Care Unavailable KatsarosCrow Attending Unavailable Crow Serrato Referring Unavailable Katsaros, Peter Primary Care Unavailable KatsarosCrow Attending Unavailable Crow Serrato Referring Unavailable Katsaros, Peter Primary Care Unavailable KatsarosCrow Attending Unavailable JosefinasarosCrow Referring Unavailable Katsaros, Peter Primary Care Unavailable KatsarosCrow Attending Unavailable KatsarosCrow Referring Unavailable Katsaros, Peter Primary Care Unavailable Katsaros, Peter Primary Care Unavailable Joseph Levy Attending Unavailable Joseph Levy Attending Unavailable MildredJoseph Referring Unavailable Katsaros, Peter Primary Care Unavailable KatsarosCrow Attending Unavailable Josefinasaros Peter Referring Unavailable Katsaros, Peter Primary Care Unavailable Derrick Morales D.O. Attending Unavailable Derrick Morales D.O. Referring Unavailable Crow Serrato Attending Unavailable Crow Serrato Referring Unavailable Katsaros, Peter Primary Care Unavailable Derrick Brown, D.O. Attending Unavailable Crow Serrato Referring Unavailable Derrick Morales D.O. Attending Unavailable Crow Serrato Referring Unavailable Josefinasaros, Crow Attending Unavailable Josefinasaros, Crow Referring Unavailable Katsaros, Peter Primary Care Unavailable Joseph Levy Attending Unavailable Joseph Levy Referring Unavailable Katsaros, Peter Primary Care Unavailable JosefinasarosCrow Attending Unavailable Katsaros Peter Referring Unavailable Katsaros, Peter Primary Care Unavailable Derrick Morales D.O. Attending Unavailable Derrick Morales D.O. Referring Unavailable Inaros, Crow Primary Care Unavailable Derrick Morales D.O. 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 Community R91.1(ICD-10) Hospital Repository 10/07/2018 Unknown R06.02 - Shortness Derrick Morales, Active [place] of breath / [facility]. 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 / E11.49(ICD-10) 06/27/2018 Unknown N20.0 - Calculus of Joseph Levy Active [place] kidney / [facility] N20.0(ICD-10) Hospital Repository 06/06/2018 Admitting Chest pain, Katsaros, Active [facility] Diagnosis unspecified / [facility] R07.9(ICD-10) Repository 06/06/2018 Admitting Shortness of breath Katsaros, Active [facility] Diagnosis / R06.02(ICD-10) [facility] Repository 05/04/2018 Admitting Chronic kidney LaurentRandi Active [facility] Diagnosis disease, stage 3 System (moderate) / Repository N18.3(ICD-10) PROCEDURES PROCEDURES No Procedure Records FoundRESULTS RESULTS PULMONARY VISIT REPORT Observed: 10/07/2018 Status: F Source: [place] 10:54 AM [facility] REPOSITORY [facility] [place] [address] [place] [address] OFFICE VISIT Date of Service: 10/07/18 MR#: [id number] Acct: [id number] Name: SAL AGUILAR Rep #: [id number] : 1945 Provider: Derrick Morales D.O. Age/Sex: 73/M Location: [facility].PMW Status: Signed with Addenda ADDENDUM by Derrick Morales D.O. on 10/07/18 at 1054 Addendum entered and electronically signed by Derrick Morales DO 10/07/18 10:54: SNIFF test results are forwarded to our office following my conclusion of the office visit with the patient. Testing indicated the presence of mildly decreased excursion of the right hemidiaphragm with normal excursion on the left. Assessment AND Plan 1. SOB (shortness of breath) R06.02 Plan - Derrick Morales DO The patient's most recent pulmonary function studies indicated the presence of restrictive lung mechanics with a proportionate reduction in diffusing capacity. My concern is that the patient could have an underlying pulmonary vascular disorder such as pulmonary hypertension. It is unclear to me as to when the patient's last surface echocardiogram was completed. The differential for the patient's exertional shortness of breath is likely to include the aforementioned, along with generalized deconditioning, possible diaphragmatic dysfunction and uncontrolled hypertension. I do not feel that the patient needs to utilize any inhalers, as he did not have evidence of COPD, nor evidence of a bronchodilator response noted on his PFTs. In addition, he has never received any symptomatic benefit from their use. I will have the patient sign a medical release form so that we can obtain his SNIFF test results. Regardless, even if the patient does have a component of diaphragmatic dysfunction, there would be no indication for any form of treatment. I am going to proceed with obtaining a surface echocardiogram to evaluate for the presence of any pulmonary hypertension. 2. Lung nodule R91.1 Jonny Morales, The patient previously had a evidence of a [address] scan, which was then followed up by a PET scan in September 2018. The patient's PET examination was negative. Based upon the Fleischner Society recommendations, I would recommend continued imaging surveillance of the patient's lung nodule with repeat CT chest in approximately 3-6 months. [id number],[facility];/9/4AAQSkZJRgABAQEAYABgAAD/8SJaFHkxEcCFTI8ARbIMKNtOZVS4ROJUJEYYBBWVOcocLLCFNQVBELB BWyrxFZLPWLXEMZEKxqcoDAoGWFqNBEBKSfBIXZNr4gNNRLlMUTLRYJWNRQSCOGKOVPONBABJWRHYRDALJDKTFDCLLYJUGO AAAAAAAAAAAAAAAAAAAAAAAAAAAAAAAAAAAAAAAAAAAAAAAAAAAAAAAAAAAAAAAAAAAAAAAAAAAAAAAAAAAAAAAAAAAAAAA AAAAAAAAAAAAAAAAAAAAAAAAAAAAAAAAAAAAAAAAAAAAAAAAAAAAAAAAAAAAAAAAAAAAAAAAAAAAAAAAAAAAAAAAAAAAAAA AAAAAAAAAAAAAAAAAAAAAAAAAAAAAAAAAAAAAAAAAAAAAAAAAAAAAAAAAAAAAAAAAAAAAAAAAAAAAAAAAAAAAAAAAAAAAAA AAAAAAAAAAAAAAAAAAAAAAAAAAAAAAAAAAAAAAAAAAAAAAAAAAAAAAAAAAAAAAAAAAAAAAAAAAAAAAAAAAAAAAAAAAAAAAA AAAAAAAAAAAAAAAAAAAAAAAAAAAAAAAAAAAAAAAAAAAAAAAAAAAAAAAAAAAAAAAAAAAAAAAAAAAAAAAAAAAAAAAAAAAAAAA AAAAAAAAAAAAAAAAAAAAAAAAAAAAAAAAAAAAAAAAAAAAAAAAAAAAAAAAAAAAAAAAAAAAAAAAAAAAAAAAAAAAAAAAAAAAAAA AAAAAAAAAAAAAAAAAAAAAAAAAAAAAAAAAAAAAAAAAAAAAAAAAAAAAAAAAAAAAAAAAAAAAAAAAAAAAAAAAAAAAAAAAAAAAAA AAAAAAAAAAAAAAAAAAAAAAAAAAAAAAAAAAAAAAAAAAAAAAAAAAAAAAAAAAAAAAAAAAAAAAAAAAAAAAAAAAAAAAAAAAAAAAA AAAAAAAAAAAAAAAAAAAAAAAAAAAAAAAAAAAAAAAAAAAAAAAAAAAAAAAAAAAAAAAAAAAAAAAAAAAAAAAAAAAAAAAAAAAAAAA AAAAAAAAAAAAAAAAAAAAAAAAAAAAAAAAAAAAAAAAAAAAAAAAAAAAAAAAAAAAAAAAAAAAAAAAAAAAAAAAAAAAAAAAAAAAAAA AAAAAAAAAAAAAAAAAAAAAAAAAAAAAAAAAAAAAAAAAAAAAAAAAAAAAAAAAAAAAAAAAAAAAAAAAAAAAAAAAAAAAAAAAAAAAAA AAAAAAAAAAAAAAAAAAAAAAAAAAAAAAAAAAAAAAAAAAAAAAAAAAAAAAAAAAAAAAAAAAAAAAAAAAAAAAAAAAAAAAAAAAAAAAA AAAAAAAAAAAAAAAAAAAAAAAAAAAAAAAAAAAAAAAAAAAAAAAAAAAAAAAAAAAAAAAAAAAAAAAAAAAAAAAAAAAAAAAAAAAAAAA AAAAAAAAAAAAAAAAAAAAAAAAAAAAAAAAAAAAAAAAAAAAAAAAAAAAAAAAAAAAAAAAAAAAAAAAAAAAAAAAAAAAAAAAAAAAAAA AAAAAAAAAAAAAAAAAAAAAAAAAAAAAAAAAAAAAAAAAAAAAAAAAAAAAAAAAAAAAAAAAAAAAAAAAAAAAAAAAAAAAAAAAAAAAAA AAAAAAAAAAAAAAAAAAAAAAAAAAAAAAAAAAAAAAAAAAAAAAAAAAAAAAAAAAAAAAAAAAAAAAAAAAAAAAAAAAAAAAAAAAAAAAA AAAAAAAAAAAAAAAAAAAAAAAAAAAAAAAAAAAAAAAAAAAAAAAAAAAAAAAAAAAAAAAAAAAAAAAAAAAAAAAAAAAAAAAAAAAAAAA AAAAAAAAAAAAAAAAAAAAAAAAAAAAAAAAAAAAAAAAAAAAAAAAAAAAAAAAAAAAAAAAAAAAAAAAAAAAAAAAAAAAAAAAAAAAAAA AAAAAAAAAAAAAAAAAAAAAAAAAAAAAAAAAAAAAAAAAAAAAAAAAAAAAAAAAAAAAAAAAAAAAAAAAAAAAAAAAAAAAAAAAAAAAAA AAAAAAAAAAAAAAAAAAAAAAAAAAAAAAAAAAAAAAAAAAAAAAAAAAAAAAAAAAAAAAAAAAAAAAAAAAAAAAAAAAAAAAAAAAAAAAA AAAAAAAAAAAAAAAAAAAAAAAAAAAAAAAAAAAAAAAAAAAAAAAAAAAAAAAAAAAAAAAAAAAAAAAAAAAAAAAAAAAAAAAAAAAAAAA AAAAAAAAAAAAAAAAAAAAAAAAAAAAAAAAAAAAAAAAAAAAAAAAAAAAAAAAAAAAAAAAAAAAAAAAAAAAAAAAAAAAAAAAAAAAAAA AAAAAAAAAAAAAAAAAAAAAAAAAAAAAAAAAAAAAAAAAAAAAAAAAAAAAAAAAAAAAAAAAAAAAAAAAAAAAAAAAAAAAAAAAAAAAAA AAAAAAAAAAAAAAAAAAAAAAAAAAAAAAAAAAAAAAAAAAAAAAAAAAAAAAAAAAAAAAAAAAAAAAAAAAAAAAAAAAAAAAAAAAAAAAA AAAAAAAAAAAAAAAAAAAAAAAAAAAAAAAAAAAAAAAAAAAAAAAAAAAAAAAAAAAAAAAAAAAAAAAAAAAAAAAAAAAAAAAAAAAAAAA AAAAAAAAAAAAAAAAAAAAAAAAAAAAAAAAAAAAAAAAAAAAAAAAAAAAAAAAAAAAAAAAAAAAAAAAAAAAAAAAAAAAAAAAAAAAAAA AAAAAAAAAAAAAAAAAAAAAAAAAAAAAAAAAAAAAAAAAAAAAAAAAAAAAAAAAAAAAAAAAAAAAAAAAAAAAAAAAAAAAAAAAAAAAAA AAAAAAAAAAAAAAAAAAAAAAAAAAAAAAAAAAAAAAAAAAAAAAAAAAAAAAAAAAAAAAAAAAAAAAAAAAAAAAAAAAAAAAAAAAAAAAA IYOSMLMCDESISDKBMUOCFFHZDPQOJEOSYxDNmjjH8lzHM2TPBMcXLSMpLEXCOYGRYtqTZHEeCXLIFHYNL2bpJGApYKFPOuW ENFcwLXUpLUHRIzMNIO8kvLJmDIDUtABSnREJWNYGriCMTVZDCXWFSQLQPKELPSKKQIVDYIKKOCBRLSSLJTMJJVYOUCQBOX AAAAAAAAAAAAAAAAAAAAAAAAAAAAAAAAAAAAAAAAAAAAAAAAAAAAAAAAAAAAAAAAAAAAAAAAAAAAAAAAAAAAAAAAAAAAAAA AAAAAAAAAAAAAAAAAAAAAAAAAAAAAAAAAAAAAAAAAAAAAAAAAAAAAAAAAAAAAAAAAAAAAAAAAAAAAAAAAAAAAAAAAAAAAAA AAAAAAAAAAAAAAAAAAAAAAAAAAAAAAAAAAAAAAAAAAAAAAAAAAAAAAAAAAAAAAAAAAAAAAAAAAAAAAAAAAAAAAAAAAAAAAA AAAAAAAAAAAAAAAAAAAAAAAAAAAAAAAAAAAAAAAAAAAAAAAAAAAAAAAAAAAAAAAAAAAAAAAAAAAAAAAAAAAAAAAAAAAAAAA AAAAAAAAAAAAAAAAAAAAAAAAAAAAAAAAAAAAAAAAAAAAAAAAAAAAAAAAAAAAAAAAAAAAAAAAAAAAAAAAAAAAAAAAAAAAAAA AAAAAAAAAAAAAAAAAAAAAAAAAAAAAAAAAAAAAAAAAAAAAAAAAAAAAAAAAAAAAAAAAAAAAAAAAAAAAAAAAAAAAAAAAAAAAAA AAAAAAAAAAAAAAAAAAAAAAAAAAAAAAAAAAAAAAAAAAAAAAAAAAAAAAAAAAAAAAAAAAAAAAAAAAAAAAAAAAAAAAAAAAAAAAA AAAAAAAAAAAAAAAAAAAAAAAAAAAAAAAAAAAAAAAAAAAAAAAAAAAAAAAAAAAAAAAAAAAAAAAAAAAAAAAAAAAAAAAAAAAAAAA AAAAAAAAAAAAAAAAAAAAAAAAAAAAAAAAAAAAAAAAAAAAAAAAAAAAAAAAAAAAAAAAAAAAAAAAAAAAAAAAAAAAAAAAAAAAAAA AAAAAAAAAAAAAAAAAAAAAAAAAAAAAAAAAAAAAAAAAAAAAAAAAAAAAAAAAAAAAAAAAAAAAAAAAAAAAAAAAAAAAAAAAAAAAAA AAAAAAAAAAAAAAAAAAAAAAAAAAAAAAAAAAAAAAAAAAAAAAAAAAAAAAAAAAAAAAAAAAAAAAAAAAAAAAAAAAAAAAAAAAAAAAA AAAAAAAAAAAAAAAAAAAAAAAAAAAAAAAAAAAAAAAAAAAAAAAAAAAAAAAAAAAAAAAAAAAAAAAAAAAAAAAAAAAAAAAAAAAAAAA AAAAAAAAAAAAAAAAAAAAAAAAAAAAAAAAAAAAAAAAAAAAAAAAAAAAAAAAAAAAAAAAAAAAAAAAAAAAAAAAAAAAAAAAAAAAAAA AAAAAAAAAAAAAAAAAAAAAAAAAAAAAAAAAAAAAAAAAAAAAAAAAAAAAAAAAAAAAAAAAAAAAAAAAAAAAAAAAAAAAAAAAAAAAAA AAAAAAAAAAAAAAAAAAAAAAAAAAAAAAAAAAAAAAAAAAAAAAAAAAAAAAAAAAAAAAAAAAAAAAAAAAAAAAAAAAAAAAAAAAAAAAA AAAAAAAAAAAAAAAAAAAAAAAAAAAAAAAAAAAAAAAAAAAAAAAAAAAAAAAAAAAAAAAAAAAAAAAAAAAAAAAAAAAAAAAAAAAAAAA AAAAAAAAAAAAAAAAAAAAAAAAAAAAAAAAAAAAAAAAAAAAAAAAAAAAAAAAAAAAAAAAAAAAAAAAAAAAAAAAAAAAAAAAAAAAAAA AAAAAAAAAAAAAAAAAAAAAAAAAAAAAAAAAAAAAAAAAAAAAAAAAAAAAAAAAAAAAAAAAAAAAAAAAAAAAAAAAAAAAAAAAAAAAAA AAAAAAAAAAAAAAAAAAAAAAAAAAAAAAAAAAAAAAAAAAAAAAAAAAAAAAAAAAAAAAAAAAAAAAAAAAAAAAAAAAAAAAAAAAAAAAA AAAAAAAAAAAAAAAAAAAAAAAAAAAAAAAAAAAAAAAAAAAAAAAAAAAAAAAAAAAAAAAAAAAAAAAAAAAAAAAAAAAAAAAAAAAAAAA AAAAAAAAAAAAAAAAAAAAAAAAAAAAAAAAAAAAAAAAAAAAAAAAAAAAAAAAAAAAAAAAAAAAAAAAAAAAAAAAAAAAAAAAAAAAAAA AAAAAAAAAAAAAAAAAAAAAAAAAAAAAAAAAAAAAAAAAAAAAAAAAAAAAAAAAAAAAAAAAAAAAAAAAAAAAAAAAAAAAAAAAAAAAAA AAAAAAAAAAAAAAAAAAAAAAAAAAAAAAAAAAAAAAAAAAAAAAAAAAAAAAAAAAAAAAAAAAAAAAAAAAAAAAAAAAAAAAAAAAAAAAA AAAAAAAAAAAAAAAAAAAAAAAAAAAAAAAAAAAAAAAAAAAAAAAAAAAAAAAAAAAAAAAAAAAAAAAAAAAAAAAAAAAAAAAAAAAAAAA AAAAAAAAAAAAAAAAAAAAAAAAAAAAAAAAAAAAAAAAAAAAAAAAAAAAAAAAAAAAAAAAAAAAAAAAAAAAAAAAAAAAAAAAAAAAAAA AAAAAAAAAAAAAAAAAAAAAAAAAAAAAAAAAAAAAAAAAAAAAAAAAAAAAAAAAAAAAAAAAAAAAAAAAAAAAAAAAAAAAAAAAAAAAAA AAAAAAAAAAAAAAAAAAAAAAAAAAAAAAAAAAAAAAAAAAAAAAAAAAAAAAAAAAAAAAAAAAAAAAAAAAAAAAAAAAAAAAAAAAAAAAA AAAAAAAAAAAAAAAAAAAAAAAAAAAAAAAAAAAAAAAAAAAAAAAAAAAAAAAAAAAAAAAAAAAAAAAAAAAAAAAAAAAAAAAAAAAAAAA [file] DvIsUyPFinJDyMMFC3t+6UJsZ0YXY/Learning Engineer+sYuBnYFtUx7r0M1Mc2Co3oo0ppy27gOID2lSE1g56XqKboVTQ5Ixy1dw6O0mqS [file] QexBoAn/ALLl/vp & general counsel+gC4mgp34/ZePqz9s8lyayL8Xhk9ZngHhs90ZpBOFRVFWvqdbDYUsa85GxHu/AIWc2m+XFl1ChQazW9n [file] 1pP7Kl/vp & general counsel+hrIA703uFwCZtj2MeeHzK/wKTkf06mMwgouEh39R1UE4pGbSrvXNLd6R8m7LstXqEbXizRRiICBS+Y4v6W5aJ I42Go9sSoJ8B1DQtNJjN4/8Asqb++c16n6MZ/jT0db6O11cizUq/qvPiredfOpePXMBhHWF88JWMFONvgDs9gPNb+ypv76f rR/ZV808D1eHwaZxd9Hi/vp & general counsel+tJ/Xpx97L1hY+LBt1ekiHtj3AsKgc7sd15jc4BXQf55RYLgDOnOGk13lcD0B8PIfiiw8G8h AqKhRWLS7xEJhNhev/03LINpe9Q5o4qRUs+i9v72llE/2XN/z2G5nOX/Bw3fZOBTihG9hrhO24aYBlJ8MyJIkwA53Bdn+9T E55hy1WeCykIBhD1zqfwmQcZg4tJpcwMEuElNBXglP5uknwuRXU2+y5+5usKdOW4kqkirJ5xwWQ7PGG3tKkLK5skST3wA8b nsgpZFDBR4bOKuGJeriBBhDDovcfnnbbYwYAdK5OJ6uvBCD5NguH7vesc4CFeNJRCYwbSDSBRNHGSB9b8onjxXx3ib+y5v8 Ralfm9zt6i5KX2i+XVG7D1wMnrk7qILGnwGWUPIskDAY7iU3NgfSe0+uGAmZp0x8diR6ml8XmJ4hxABL1jX8FdhIlW+U555 AOoOlzH/nzc88r7EY/fN8n0zuX9VdeN3HS7R2Lb7eaIgs3yi2ucKLnRPfuDKMXTo7/AcQgbmZTMWd6G5uE1RzXMKoiWQCtG nDywBakwUYeGBr6ne65SLfJ/MX751G3yB9Ep/vp & general counsel+tc2/uHUftPYJrR1nyxWHp4VWrg/cVZU1Gb50ZnL2Wfl9oM3H5gSv0z9 jmHuhaimOtFp7TmaQq0hHbiq5BGgZkbxwnJJSK+of7kUB8x9ww/30/Wl/sqb+/H+herbert+E/qFdhH6N1gPaOe43EF4BH/jvjO voa60Q2bYI6eTlFfi7yszs86K+DjzVUxY67n5NpTKublaEaSF7kOddUqSOGDPifIvGcDAA4uYsfH9yO2Rw/vp & general counsel+tYfivWtc0 /mk5UbvMqwf0vpeZJbePC2vKK2y7z8vjzvQzoRwBIgqvo5zoN7NehkgdZNOn8lYvXfX0PmvAVdr3GyHOFBkB/ZxjvQB2/9l VxoO2nP5Qt/vp & general counsel+slaJfnKmuEb5DdWxrBgBDuCKbLsla5KTbmF/1b/Sb3nM8dmOUK+HfFE+j6piYiQ+lSabeWCwymNpllDxy gbyJAtvyRShdP4XXDoX682M6r/sub++m16rqy15z6ccOUQXCkTP1b49GNF1EoklEYK1WXUB2kComXc+vBAo+Lnhz9aJsoYy 6KURglDpkSRfSFphgWcPRIvfXQ1F10WFru3oZs06/Wj+nbj28tnPfPCXys7VC5uC1y/suX++n61n/ZQG0f53IyKu5uslQxu cEQDXagU1pioycd5n8/fCMEnJcdH5Bcs9h8euE8q8Gn0o180bV4QudfJRlWi9GPolLXFkTBnq1GP9mD0lw8Zd/vp & general counsel+tcx8K7 H2hh6Wc39w+f8daZVwbnv9imAvvU1YFhodrCBsvOb25t4Hx4yl3726Q2Ltd4sijAMlbTwljPwsuSpVqHzMa99pNaZ7t3Ct/ vp & general counsel+lO7kgo39/Yhm6thqqLqlNnn94Brs+05PdPDYO6ii5eNVZSEmqu3yd63SfiQved0PltZ8Dq/OmEcXpddg5qO8rEN8AXLH xfKGGCyjBLZGScUAdh/GY785H6l/sqX++o15GtszQm6st5hGgC8TyB1haqqbE8q+gaovIPwkiT3Fw4OyZqMqT+Jri/e60/w L3RIv5BLBFIix648kVi4VBXhxZ6U47GQy/AOypuzx/rR/KZ095C3gcxRmqGa9R2if7PhsHQbhi9uImJrpnxvjIsF07WA9oH guJz3CsX9NElD5Gn3UY0q0adW0AEqBG8lPzcrvfMNXaXDOEJ8R9clMmi1Di/vp & general counsel+tH9ly/30/Wuan+Itxazrp8+gS/2x/aEV t8nr7mP62W4mjhrrFYDNp5TiP876z/6AxD2w0CtS4QFOtPLsGhO53E1qmV5J528ORYKJHtRTxfTAP1dfAPfr/Lfi34H2dr8 Km/vp & general counsel+tcD4L+Bm2qmMqIRvArsWBt6q0sP6PPffgl+Ax00cCUmB0I11r7/vc4dkwNSPmuKOn4wmvyRUeW9A0eyY53INLFnJA Q5PCqx8KG/SEydl21duZb2UJy70teDR207jH1MtLBmyFFAMf9ogZL6hgs7YVGc8s0TcP1YrvUM9W/gtccgOncxJZj9KszJx 53mtcMJGKcNDvfoYmpVyygOAC8MT2U8kY3P+hxj08huP/YE807X7oo7+G6g4ht5H7kQWG7mnusSwEaHg8U66RZw8uZHIGt4 to3xa4JlZ3rd8z321+0sRHD0aKq6ZMKpunzxBZZ5edpDxchF6aZ4y5Rn/vp & general counsel+tB0qb++r57mhi13b8faHALBfqCS1V38JOX5 NinoTZCJcHm5az5IDRIgmpfQ4cRIvcp8k2/0xg1dEBN4STUNYOn0dAWjPr+FXgZzk8/UF61XXu+onb34doU/2VL/fZ2zxVN N7jOr6rIz6a3pJA6aZ9e9SJBtOPkNR7HxLwbxKCDygl7Q+NEYuwNpyo6AyCQiADZ9LrNcOXp11cCWC7tqhnJgd3gnF4ThqI 4AO/wD7Km/vp & general counsel+tJ/Vi295B8i7KoCLqzCZ0axhrssKOugKPoahm8wWg4/rmj+MrHTta1/fQjE0rCvrFCcWJxEv0ytfFAKWZM 5kUBskhM+tAHW/2XN/fT8z/hS/2VN/iK9wZMmRZTokx/0e1MuxMVNTjE2sdEcheEbwt46Kx2utqYDJA2zN2isrWPf+y5f76 frS/1GGd93glTH8qsvx13P+A3s1rLOxcz0cCxxDsLSTrJUCx31IG/CsB/Dl5ssgDJnI8e+dnBZikDOWp9ZWYJ+jdJq8sBFI 0NRFXT1uD5N+kbb39yjQhIwUwnOb8afL0P9mCT7CS69S7U9sbF0R+tbidIXtolZlOM/pKtAAnRlJzHMSj9sChUEeQuX+3Ir X04QopAlHzJRkTsDnJA3/jB5/TrQBZ/nvgPaDDEob7i8ZE/p4V8cSWq8Bv32iTsJGTIF7qbe37WmveKnWdQHAK5qo3tdaKd OMe9W/6ZqBmK7HGKJSn7nJ/m06WFYAjQtAEISr5hioDVZkDigJGOMR//BSBZp41K4JiQ2Ay/AOei/ma4DW/iVrF/6JrI6oQ wFs5L796aevT7ESTMNCB7YrEXpEnlxstnMz11mnA2yettHwixHx8YTG8r7wmPCZaLIBKBH60VIKrWNMtAr/2XN/n4L1hVJv eBNMtNU/xD9d4Z4gq0ylcxNAtjWcY9RN6jFG4wGm1cWYmf8Th+vaLFVoR36OoO6vMqZUoUFRVqKd7TI4fs8Qkp/cC0Oa6wA BDdhbPv3q2v7Gfv67gbKz9cYJjYiG8LYjVEh2XnB0c+s8uYHXA8tk+y5j/VfQ8PeKkDeFCn8SyL/wAI7d/YNL+ztfXEkqo8 CTRq+aQGXFL7fPcyAwmFE7hO9uDM/VbIhjqIyLf7ap2mnqRtBXP8e9np6746LOahqDsk1+FOzOrdeLP0mstAtNHb2pYkim0 Q40wm8qpBrhour5yHPTurgw3j8etnVfwLEf+hcswCvnG0+9XH+VO6esNm6g9IRapj9zk4AWucktMA2ekJHLJZaXeRkhkMrD urEgF5An/61Hs62QV0wPiSQS67vg12LHAlC7leiOCx01kGPXzNszEIU6TjPEz6FNQnIPzCae2pEThC5raOyqGFu7aQmegg6 ksbgeXKpVCxQ+z6vydJy/SwpRLPL1mR/rLmEfzCv5tiRItZbYItwJ7O1ajxCLZu0f6oJYoqmiHgiPJ5Pq8wIob78x9/ABDu I9g4N6qdeBM2faUjIO3BCflTd+OFaL3ZIvJl0fRAwJ2G+iSuosN2hM/1BAHpew4Xdy/A/qD1eYrVI8RpnKuXJ3SUicmgukf rBKMRHrnAbAwcDbVW2+ZYu5m06S1Vm70jVdoBtzOSyhenInBIHDUsHIViUQ5D7cC/8tE9+XQcRm5BlHfa5od7I2Cju84a2Z 4UyxgeAMQQWxqa9yMKPzR07/InN0DopgJyhlH919oGAh+aeULyTibjUOuMiRfTUXEAdaKK8OI5xDw7hwZLeZCv11UKPuxzj XMGLLCkKOtJbilXgjBMk5fI4TV7kuWQSlNbgT3bx0yF1rso4+6X90e4hRLbBsy5/cWkj1Y1j3+akibpth3lYtZizp7k7AlA dXMu7oiDaUtcR8uCVTr8wJAnu5PJDyG9U6KLGtcMp95VZuIy6mT+NxEq9jDip8/8Fn2z34FCx+9A3GTy/bL364WqmalIOq/ gCXO847FfLygOcIjK3XTK31zO2cWlhiXHvQcXFgg+D1RsF9i+zJ/+ywPG0ZE/Zc3/EF3Tr2xcUkL+JM+hjArVb0c7fRlC9e vXwtFwsE4GYKcpM952+JjSv72v4p4ibX9VbfseaS+0fTPDqEarvLkQW1e9lFJElF19fnxpqgMHj/2XNz+8Tnr1o/subtIn5 gpPp4oEvEm5j5DPmCieiRrg68NbRHBrBH3yzzG2XuGB5ENeSCieHPBh+q3uT4bSvZ2p2RN/AM9E/U9y0RGSN3xth/6xPzNH 9lz/UHBGCAyc4tYDWu+y5u7p+tL/AGZP/wA9V/R0aPIGAx6zZ441srqcc4YQn1pIUhCC0TX/5AOkQuOD44zJzjEgho1i4LR 5L1kpS6dew3+L6Gs+fBqYKub2UWLZHLTz0Fwcj4Lgtjry+6LcVErAMdxItpk9Q9xqUnExwp0YFG3LCqkrGrIQ30KAmdFKSQ 8d5CcETqdWvhfSYVmpd6XeCp1eyALpPg8AS2w881/3b8O93jCd2/suKh9cYk+z4icZjqkiFaKirNbTEe1HBBDxZX7yvViU7 thcQHGXia4MmkEPhEQqc8Z2inEcmg4a6bRG3Y4Gc5NcPQZJLioX3Ms0b95Rn8opiGXTJS8sS1v9uASBry5s2/Tm8JGSCILt soMncSiXlxTu46hnKhqWED7KNdAMM4NMu9doYrfGiWM6TO3vHpfWB1kF44YDC7ppNllhK6Vb7jozGGBYVRVA0MszmdSXgJc PbnTYRUnu40wMme40ZpwlVcctcejBcy8AJRDSS9oofEixqtIvpoyXKFQFCJC0ddgywroa6W0koqEAKhKccYt/rm6K8EVHP3 ja0viJIIqlRkFojKg3C5WxeF4jl5D7XtleUAFGQnjqz5pW9Ox3qENDX4Pvnpqw+8DXqdFAHnepfD/FlFFxk9CtwBXIS7cFT fS0bBN4xSeEJVyCUtWYJF8Wft3BmevwztrUqSM0Xo9x1Er0k62geADuNTd1nHB4W7LKPOurj20NZWVP9op/FW39OTBnLiGg aEFyf7SdIKy9R5rBbEJKL/dwkuTA4cyv4vyV9+1CtVxdv5QgtzCvnwCE0l8gOvAS4KUf5964eiW1WKOa/mQTgX6qa+mWv9n 1Ovmb8dnLLkbFJgYCEBNvsCt4ABGTqtmlda7v015/tm816+fcg3pJsH1GW7KtxL8aA64chitU6vR1LRbIBUFq+CyOe1pvlb Aq6XugLASDWt1fp0VYAGawWvdvVQlO4AHY48+3qpS4O7gqnhJfhtIDdGgnmmxyQu5eONKzR9HWCT2eVCEn+DtL1DQ/B+maT gvDg7MgnwcI4SronPRJF+BJWDMkLLg8aEwxPhbc+62c1g0b6CrS2RImXCPJ7YPr8SOgApuzDP7QLrk7G9EMxLcmHTdsQV3g VHHy9VNY1nllSgbJkXdE0XnYHvDW5rzMjdb/yeLhQOnc1h8dsKUw9qcfH0r5We6VopBXQB1KSINTB9QfFqZdotwmdOQwsia 4m6fv8LPcbrCeAGAUHrLkDmKJcnclzI/WjqQprvb2k+w0QQ6Bxh9W1uDnkbwOUUJV9YapYHcTVTc5kZnBCxvkK9IvK5bCV8 ws6GB2UaVdyn1a0vQxGMDVlbxfPTgtZ2CjgFLMuPHNs9Zasi51/wAO/fItyOLhMSqe5TtKWYYWOGEJzfKKplPZDJcGnAiv6 xbgWultaZ1MDYQ6ZJ2MEQ0xAliumVFnRWk2WNX+tdbRRQAUUUUAYXi/w8/iXw+2mzNJrRsOtA4xNag5BtOqANmqwbyW6Ymk ejy20eOFgkcYG43Tk0CwRQAQElBb0sgrxa5erQmAJH+DCG8SdCOriZ1Ii0EeTCR1f2iyspv8wDpPGI4qxshEUdjH2q5duyw dxCBx6uuAFsiifakijWY+62yQIHp4ig5oKKSRdGeLwXaDyzqI8krvsAxjkSRVYbZtB+oeH/Dk4trjCY8EbIkjS5sXAP3QFu VOtnqWD2vUSgzAuCa3i1bwL/OL5Lv0kyfRPBFcyBKBlfCfrEhu4z+VxbXPvY8yfd2ULP3VcQ9I1+8oPK+mR2p+TAOI4c1js PtF1B2fJyT97oekXJfB1k2CVJnZOWlIF7jZpWc/c7Pt9J4MvoBxstE1RqlwZaSwVkTF1GnUppirSuAkIRKvy8yQR4PtL1Uu zwDVNky13LOoYjXJUcaYViIYn/iHwNfawfFxgureP+6qC2rq93a0Pb7ej3H5A5UyNah1Rx92nUo98N6iqRL91fc1RgJmGUn uVZMQD1RRCGlOO711aEKRSYFafMG9kx6j7L7lTgyvob/iqlkzaY0so619O6UKjouZdbUn6xwDr9mZ+XqomvexnJOaKChD99 C1byNfxBe8ppCC6EOImaTejlhDVZLBXYBDsqkCbfJ44l/z1z6kdOh38l7M7t8iOUZlnG0DD68YmgHu7lomZPfmX97jjwUdk 5BdIfU8720bJ9pKxxwqhymGU2RjGoAHaeo2OcCELNenLjk7SjbktBO8htKHJzAYpOvWnXZ5SI9ejFAVf4X2Wb9miOx/UtLk ncIvU31mb9J7CRX8oPyuseqLFJUrh1uDeu+x2aPPhe3vvTv3+74CmsUiN49eCzGeYBHBRiziz52pyQa5W6Y6mleUTfHFQOy YyaV/ZsElpZ+D71cP01r49OASCdDIbp+tMq15JF0WqvdLpgIalMa83qVDDX8dFPzpar3LhIH1Os9KSVRYot6mxrUoX84zto YKg5fMSPpe8o1X0t5zAW0CwWCIZJevXH1hnHKps6+w5GuQ3hzuJdWppA3cd3Z9YPBhGvtHbt5Sy0+1dFiigAooooAx/FegL 0r3S8rfRk0kBZnW9eb7q8AqrHsejtEvPGZ4Q4AEqTIcRdo5iFn0osClRvDoen2rdSrr8soVFvtCUQq553FFMBFsfjS/hvwv Hed5JFJTTBDBMhcdu4zgQoiTI+ork3+GqpJ3zA/bz9v9e23+8feMcR6LsWkETqXdK0XZfXcYOEhKd3XxUmkCgFEipJ/hzR7 jTb+P1bfO3hqmpDGlMsGX0itg6KGhRXAhGXrmPCQp9S8j+Yr2g9Yq8wAUmvLRhd6VwJEAiFcfMRWAANbWOUAw0mJKUrFlhP caflmfhWy8KhJdt6shRetsZBPn6ZQoW44KzgTE5A2R7qXf+lXrbA7uSO1ChebzJGxkmsoCXlhqvdgtrwLsQHLcrbxha6boT exqA0hUavdD5WGbl2FV6oDj66UTJL2Q+V24EZ2NUm2WdK/qoiM8kEg7xg6o2oZsP6WgCgizFJoC54stv2mgE2uMJgdWPifc zYzIbrBJu7z2FcmWLjc1T6VUKDCO3K6c19DCm/cn3QQgmHCLxiI65eYKMpGJ4EFOsbWjSJnQvbtcl3C5zz9NX152axD5yKZ L6/ECb3JyhouZPKnFYE+mRXoGKKAPPtN+H+qWOn+WkE6Mkyh2hT965k8wNtDXIGONjRwvmPWI65Ja6wnA/Hc0FYaDZNyd5V dtb/OsYNECVmGl2urfLZuokFbyDIaTF2LqJUFvnk/Qr/RnwBh6oI6J637Zb31Cbs1mOWtPKRIjrMfTGrmr47YN2U4VM2sl5 T1qsJYyA68hrDXfq7+0KSBcby2awvGiPh+V35X3Ji0CT9obhJWBebxunG6XqYSpKRAH+RhhPRAJacRoIkk2lv2f6Xr59tJL N3S4y28/Yud2+B3Pt9YSQhbjeDHI4rk4o53n87YSa/wetQJ01w41nI6Iulr2SmQN4w3FFkkyBrh44c49Cx5gAocYoIaaiK9 1wqfM8c6BlcZkYiOfDaOVEjFQO9nc6VNXVJ3WI/zJp15Zh/C69PdtmJixBePy0aCSHVek5Y+F6yMA7AnKqS6Ysyft8Xj8BP NjNchlkVUkB+ZCNVp6C6tcTSdCAWFjLsI6N5N0i9/S/Ofc288SO1yIDMOxuk8jaJmMIKes85v7U11ZnV8z9aiLRF0INy8/A PVh1S8yS3tqcJIjvN40uWyGtEjIk3ZueRvsNvxQvYqdXCbOegwmj3ozQOFEMy6ozNcr/na7ARNmAs2InunSdsARFEbtxoKk 8RDzG0DGn7YcN7w5J7T7RroTtb2dkQ94uBzmnPPTmzRl8Us0Ge8i7zUjGlUvjS09j/hDuYwaNGxFVRHcqzHi6G370MqOmm6 FFAHli/Cq/tbWzEE+t51actuZujtzioEVeEzaK0SddoJRZOF6AVio9PfdcFWg7uRYBg5AJlGtnLEyuD2XafrVpDnVKCVgOQ GMbED7MnA5wAqT7/hG0yPK9lh/x8dWK9QqRtIaIg2f2vcYCRqkoWFwTigzwhDb/xO8I87Z7PtGQu8JfXrFsFs3qLmxM0ffJ XDbb5KKIyXe/V5S3Nc9P+15Sz49ay4GOWmw3OYV4ssVkXcfYAYJiWpqmGS5vyJt7fJmxnWgY3SPl5b8SaAywqD05L6CHoKy UqoHWGlnIrofmKJ0bC/EyKdFyh0WZ8EVhFrSQWokkNJHWhsBSzwJ1W0XRvxaDPVCV4Pi4y04/qWFah9ICIk+ooou/PhvLdv PTxSPFd3NOKN5zkWmgp0fJ38qUKM0WzvAhixxA8U+RUqHcIzQquub5mXl07bInhb5yf7fAww174W2c8f+RN7as48HOoEnjN w3lYxlvPFvlO8hwuuYbqMyTQkLJPY4x+O/cqO351R9yfkiSVaE4bVd2ZgFgXiZMiscD2CbYX3AfkSfJ9lFH8n6K9KrthWEi Rt9mwftKUIMfseM7h3Y3tbGyzN1zaP2sPZQJe3o9RKLJBMQR9FWyFt/JTUrspCK5jN2GwIKoUxj2k9TKncqqwVHKsU1Iu26 xfCkLvc7xq9R7c422+5xj8iIqzpVdiRQAaTYYIzTAduZ+D7u3+Es/fJ9bKCLszxOo5Og0MpHYyBtB7goDPY3RvwBKOFWXIh uJQGKGEXmOBoQ0eJpP3t8iELDQMlkgfXCA9YMPiiB4oHWU3x5k81hG1GsG0jmkr1fXZQwPyLmaYhwmIFY3m7K7rT8BU7L3+ XXf+CnX4mf1SDawZIBthwQJGfEFv2V5AnPm2VzBnOww6gqN39oYXtsFM2bL0Jg4R70WImp/t16zQtsXBitWBQEjqw9iE8Jz nvVW2+PB31lVdRh6fxhN0ZSmY0xrL/qBfRESYSMYy6VcgCdxUMrVsOo6zoA16IxIeHspt+Df86fJihjLBUDnlAYbrOUDbTP Q9UVAtLcEW3y+0jD6KWhqyNWtMBp7kyIyy1rbwRPvs7jfGMQIdMaPptlI6eYYRkcOfThaAuxuvNC36qMOxOTTjiYdUF2WGJ B6DYPJEeCGHTt5G2ku9bCasVNGE7u4zw36MuEdKHizYlLdtAro2fJAHPQ0kt0CqpmeaGsD2AXI/4BoBAks2fQRoOySST+XI k7CAsagWQ06Z9rHtfAXHFAC3PS3Z8NRCin51R3apYIm7z4DZD6sUHoXGMpF8cpFre3Sy5lD7dZbaOBbiPlwqGDE0Cryv29g 5vPtd+JQ3SyP6FlWZS534jZLZF2AL779MAQeVucT2i6WyveZp4b8YJDHSK3PcDa2J1Bxzu5znyuKh52bRoT/Ci732hfyLtB NwLbiOZQJeR4adDlrza2Du4u7pg30Jn4cjedvsZ9XxmkO5K9piMUzRyXjks7nK+aHRjpDqoubTZtADI90+gDz+58DazdSXl a36Vi0Uz8/AmK3yt4snfTkx5rrKpfOLrwddD7To50GkmnUbtojFOPUQTEijcjZfzatRtJC+/F4WWyJbd251nxkh7ECnQngM tMBkcckZH8H6O/fW6bwp4Ukdn2JFAOKDNUVWODEUGWMGQFGBNOZYYEESLZJRYPOTCVWPBDEQTSDIWASKODRDNPWBARWXWPX DYKLSKFWKVRFHKQPXBUMWPMGYGZWFCRFBULOocs4jKz1hd7Yi3i0cQ+rzFopwwnnoAyOwd4vucDTxU0qYp5Rnd5sg82RN3e lmtmQW+Vb3nzAGCNVzPLPjfh2Ij+coNlDombVqpSyEf2yudGfXmtQwOZSClUNAcWAoZTG2wOtB+HYNFcm1rAn2WAyw9idX4 /lzgUfUvde2CcWyfVImFROwWhAVfD0D1d7cM9pWq9v9UwpA3erLoYtjMpAeCTxyTINdX5x+pWVHQuhYS0ImfMbjDh9kxinP KX9DRYqQ4o9z3F1u4TriD6qsje+CWH8aw2bbZOou0GSUwR/dEggTn9TD0ZmN60x+UugHFLptpNLQy8qw2osMNemUBI8WEO3 7KzRyJ0ILWW/I966/NHAARs7qQa63m17pOmgSFUAxbLVmyUIIfW1FzP9cVt1e3v80r6bgC+Vk70jMvxWTNGTLX8iYqW013l KAOE8T+NJJLymlnzsPmYz3bBIyrbpvbCXDKUwUXjaLixgNokK739K7/E/gPb6S97DfwoNMjxBzkfe8MiXYdKPP5A5BDLwHD VlGfUZzXV3/gnStS/mt0K6lQ1Vwq4jnX1EFx4xFuML+Ys3r08s43K6i/ycExWDvy4a+nIxewbieoGMbUCR6menpi8s8CQ8O slnlWkMg7qR+U68FvlaNgT1r394AGKPzeakXehBbL+KAOMMg0xocCyjJ4G3n4R0FXOGTGt8bA49Hhh0MM8x0oE4qglcMMvc smDGEg5p3R0jH5cKkvV6t1gbjB5yFXq7oiyeYd3phbcN4drKE0VJM2b3ICVzsTZ18F/SCdiwetBIKuhha2eLnbyVzAsFwI2 rucrDkoWjHUt8wq2bq6oTawKCmyVzLgCGKmD+Aryzf7rUc/iPJXsDXZ+UVfcAJy3OR08S3qtZenSs3Lymg8VBjpIZsGWRxF XWKtOuBAe9FkDwd2i1jVcTNv6NeRVIa+9AdhySADu/dr8wxV/WsZNvvCpwPJfel2y6nQLtncvRBEbzHOGwQOYhaa5hcTkJ9 iEUGHBzbdnMwaadISHBBXYkddlFcmfbWZTykiD3hGoI7GD10ib2EUZ4Oh4MbxQqNuyraLLxY68Wix6JreW/BWlw/ZtrXH+j nvKd1CsO+vq73ywHw/uXmWlpHQptldYNE4y59k1lVYCqa9og5C4SlABpdrFxmvWwoCgZJ7Cw9KJUqOEpnyWu4dZMhW7iuem 7q5mg8HJZkWIm25F94uGsjgU2pcOP7afY+H+reQRrGdxAajfzs0PACyMRuX1PvdJUuDlDC0T4dDDaBxI/n2xMNuHaKyChom aT/AZRKkaIGCyS2T8h7I23rZM7j3z+00cc473Me+Z1uNB0+S9yAHcYwpIDzAjsjsd17neVMAUAel+RhV56cRNxc4xTMAXj2 6ZgPl86RrZkxBACzIiuEQLNmp1aRzWckOjY1/6Lk5U1JVg5nCMKQYavSpkw/pPne5eeOxhs4hggzzSGqJ9O5grhWgG6hyz3 WVILfpB5QrwrTLXg3ZwlCHMuS9giBThk3Vxv58BRMQBuzLIfEjrT8MntUQzFBkFE8WJQ3WYHH9f7ImWx5ym4SXZjnbqF2ck qi4djBOA8Psg7B4W3FEDGCirCDCRPXAHDQTEYFZNSNMKYVEBCGMTXMFBNGSGCJBGHREZBAAAUNBI4yFkMyhwJrILUR4ZmKB SEZmMyz1b1iW7FhkzGWdX3aaBFoQ3bihUCga+YCoIUbIZ3446jzi6f5z9y3Ns0xjrtKt0z6pRk9lBescH2Z5E4FFY+g6S2k BtmOk8B3PI38j2W3+oKESV486Hknq2SS+wQVbUl0rDz2c+r6lx1q2HJcuonicGP0shELdL87cMylsNGNnLfJjckjKvA8UgY v8UNJ1nyvCZoHQZ4CWWCwHatlty2Rtj6N18/wCw/aNRitn0+ZYt4ppqrFhXZWaDzklxilBlUlDW6S7Y3F5QqZJrkYtBQsJc zcDgfozLb81Uo4pxg63Jlfv+YmXo7ARsMqu/cCj1N9wgarRC5ZkQDgjZlnfDIPUHRto9PACCK4waxOEuzjx4I4tPN+3u7LV rDiJIzjO8KkGT5NzESF7DgYpL0oIkE0p4+WLh9ctMx3PgwgTLADo0b21bDfGkFw6uoQLqnhgRPHR2GFi/AIb+HF5a+IbabV 2jVYnL5jcHL2W06iL6FGNyUMNzZmLBaryhYiOBPOL/uypwvvS4g2CNRtLwOx1u7a1OpqWSb2rHBjQW75RgXU6XC585bck8s 9VaGCacs3oH4q2GNAQZzqQHM7XePCgpMW6yezLWbw+xk0luqfj18IO9lroMwYiMUWV96zz4RWMxsXCagth9YqNSchguh5/4 V8gPv6L19ilq5nRiw6XkCLJB0Me3axga2u8tgPFp5+AdYU031ae55X8qujMVS7Mfxf80upZFDVLaxs1UvIW+TV7aeSWhiod XiTxTqM+xN33tNtOnp4I51D8xY5nk4ihYjZSg/z8RL068I61QNsZnkpnQ2tw7D4FMYo1igVj1mTJDuvU+8MY4uumGVWbmWJ Ol6d/ZH2drg/2RNcT2+1PHLW52+7yblW3FtGGQO95IJjWkWsHlNmIwK5yoMaUJ1nK/IGtQZXLW01wVjZk/ABb8Q/Y/C9nr3 +pWF54XxYw+T/rzz4Vre04I09YbE8n8jwzSmu9OHbtFQmxKam5WD5m1gJAx3xw90q3iU29bNqpUnsAmMvYaREE3DjmPwPUj sj5KvylOvavpR2VRcDswyHMomXqtES7XUGX1m/5ZOctRI8zw+Zv+9v38/xF0rrkoSV0OnL/jlN4E1KbYWysXgg8lNzOHA8W 3TBPM6GxKvfxpTd7ZhNNEVf/2l5l3t+1/ukaWnb3N8vhmzjaI5r/GNzvD0efN4UjR6OyPVUmdLBIxr9PXgw9iWNQXtzC3yd hzbYJHAIVELayQy4du7Nb1hWpZ0a0l9Zg08rbZuubGsAOSFqVZKzEQBHc495E9uubu+fZ4nAklXuMing74QOYI/wBm+VJIF h1J4oDhuaP3X0UiSQoIiTm7l107Sy1SzMO1gUpvjqu1VvZMXkytKDA9YVHjy2G2Oj+kTCiEsdnrQWFF49UV5fLgQlkN9ciz 5LmVaxB6tFATz6kgiTSr9tlw3bTormgG0E3hjwURHPGI7M8hIyiU6t5VgJ/MHeujSyYiFU6WGE1grK6K6DEGOG0pybl+vOR bCbwXtF9o4k5iZX688SMcTwMr6q2CKqF61LTdaSYwh0C/+LWgnbJPjNe1qTefv7erCJFP+2FK2lyvprKPnQsWmaomvTGh+H 1b2XDwCpxYmvIGW3yAOkcDEnJEgXNKgmd5RSQtsW0ynY0SxR6hN8fy9muZcbmgU6n9vNfku0GvUnhiDkmTTytu1BCpYNdyW UC1GUOcbBsc1dVRN5tyL9zaxsFaZ3gs9sXqLMklll0ZPBRP15ZT756rouYz1WqIyB6AzZnhu07hIYK15GcExfhzxynkC94k rW/llC1yHtNxNeZcrucdNuJRsUKBuudBU07Dgs1iitQ4ra8kqRS9wvTbiA5qMm+/84nrur4rbySSF6+ZWUjIwDtHHWusvvA go5unOw2D0u6Eakn+kVWPfKKIvvboKalJLLiJcXURz2JilHACzxKM8usaDmfKNh0ljFSRkDCaUvcDcHQZWNFKKJpgMbaCvB wb2LCFkZe75kgFRKlaFQnWH402wFJSx8jf79XML5p5+w7wQ5vdg1pUak8e2UelNyXIca9eWu7sZpQDrBfEyLREQ8z3bWxfe M/i5/EhmLknLTOfAFu55Rv8Yby8y7qJrjknyhn9x1KKd1Athqd8dWOBMkbSrrUZjLJCtAOYAo4m2UWZTUjSuIWmUjbDczoY 3rLtGqX3TjuMsIH7ZrugVCMbEPPcrCVfQM1d6FLuFxW2fBvK3v2uNv3KTkrArWiXD7BSrJtJdbNbzE/+rdBx2vhLKxpZ8r7 QuXa6OyvcWR82XSPUYlXAGk1DJctkpzi+9Y76ESGR2AtdHjPChsNZ7AHpCupemznvmPanUqQPeGPf8+0fDaEM59HT4U3NGm eHBtAKAIq6XPKdDmWkzwCHugQiOtN6X/Ysjr48XLHvNEY2HTFJexKgSpPPWdxcCFEBvq1VXyx22/D3Q/7P0+gqM3lc2W9SI Q1T6eeLkAEzZWzNihIfPGq+DKgLzKR2OljoX2Y7cvamRo03JxFRsJZ5Od9I7pjnZVdKDLrven1g4f4POpmWlb8yIgDXzWfC /jShQ8Pn4x4gZeeLK7fobP32t9coMy5tiJBqJ1ZMmaQjcX2E/RbVS7WRFINqpJGN9/wJ4a/8CYtHRkP7ijqYT6zMuzY9IPm NPKALjR1mPdd4RbZMwoLCdaPO31JwZJeqAGyMgaykW+4M9O4qpGQCctSBxtc0/JBUf9WqcWrpwu4xd2UZz6jq16l8I9OtRt gWQg2jxb6q+YGE3l2qo9NOkmb6qY9BM0Eia2HDFAzrllnWmkEX3AfTjZ3B1XCEovuitcK2b6qrKRzKtJ6zH5jkPnHWCw0LB SLLIEeXOby4Fb9s9s2DbM1e7u8aNz7QXKqYrDZVSeXYKxTjjPeVhiaHmlLFGbzfawWKGBZGLkAothxP0c7bep0+L6Gs+gAp ZM5eENDTHxdpVTgVh8Z3Z8495K/cU5rFIpkohLcjyjLJEGLJGvdfsJmnafGBOKOPGwfywViomxXXTJTRIxwatDzebxIYLSY ACiiigAooooAKKKKACiiigAooooAKKKKACiiigAooooAKKKKACiiigAooooAKKKKACiiigAooooAKKKKACiiigAooooAKKK RQFalxrJpVBNJNKEJUKOLOPAQAEJXRYXYRCNITEMBXIWJNDMEWLGGHCPWKECWBHHYPYCUQGBJYocjbPIHO6L8vnVda22n43 tab9R3sxAZCpOOrecikXDhNh6WFWlMWFl3KOzggbOtF6eh96u4uem2i1zl0JrxMnGVGG0UwUIuyKxHozls5XwIHaiQSiYUL RaptcD3P8gTsvGZ1HYKcNBYnKHEkBsWatnj+w/syKGPwt/byjUm4+gRRoYU7juni3S3ksIP2jQ926Peve0a1ey2GJXih4q6 T5Itbo5c0QSvKPcBvUXDJ0x6qhviNQFqvtaC6B5ngDgIMyg/J0vzu7dkqpYe6r1dkr+ul0+S+GXRTjanmmKYZfL1E01KHNc LiQIpGC7Z90ac68giGJBwnVaurLJjIuCbuHqYTDrkXXcgPdbWVj64NlZsDSlY68pvhVJ8vEfGw2+dF97/c39a64R7UhVjpt 1Ka73itL8tkxp/Ojzo/EAdZu1IHYZBP85qec81+yGuanqxgjF/N54xdTyl09VzzslM8YDMD89grqq0P707uM2h/4Sv/AISm 3OgTK85qMwus/x4kQ778hkPpoX9089FLHfk3b4KiPNGijLK5HOLCKXMrgu5bj582ptThUng4crjhVCRg4hs6rsNDR9USWh3 QIcI1zj76J5dmZkbUIzBE9i2KSjxZie1yV0Z/ZPre2j9U/sIxnVfsM/8Ab/l/12Kawn1d45gI6ysojWAEVTAXncxj2M75AO Rk/uKL06HDCoU0KlAgZ8YZ5zO50QHG71D4ZmPtB4Bbxpfa+n8RmmOE+RrW/uUksX+pOWrG3DUQQiTBUcuQwss7jxcAu7D3T dU0rM38BMX/jlF96EcFxCTf3jsX/nZPpgXNrKwPdvOF1tGl6VOsRqJ4KqFq6nbCyIm+dqMifM4PZNDMpLZxLkJ/QRgop1OY rrmu23d8stGw8smei7HGKlQTl0VO1eM+yKiD7Qbje/4KhRz1EErzFngPApgCXzaGNuEeYxUMitgAnTK4w7aILQJICTJWEDO qPPKJFKQD3RaxcT3/ErbmCESeGz3CQlxVcqC9mPdV4VzTljDKWDZUG8LsB+PJAW3z0fWcP0RHQVgPY339OLI3NRgZw05onm u2gWnouGl1QOdN4PH1BrizeNM4t1XotU1foQtdPgZ1VOY/jBmsb2e7bP+lsC3opEJb70t4xtgLvrpjBaKNCP947JjlBpByi gknOU9KM5t1g1EXHoSifnZVuHSSc8kupK83QU/ohEUPdrxCki3UsgsZws2swPPc/iDO5NxPVZsVArYpSOKqKmrHEp4vW/6b KKKnWAXr01+eshbEROM0bDxNLjfKuoJ4G0C3VutoBXlmxVuwj6HRrJqAsn2X0yfp63DHUt5/KvBnXUb+PRrTwctjpmonWNS fziy8resVf5GB9hiv7eiUFAUN1sf23yunA75BUh+AqA3Eb6u1oDz7eWzUYKUk5oATkytmhrCD68z8vr9vcqD6HdRH6OgTar AZkJOxsejDkfWrqyI+0N9glGNYVuK8caTSW3zLvhpLghdnieeu6J434gQXKDGVE8hTR23CH6vfRcfgywwf7B9t0t10zXExB gR4CWFJbHW7o5pQe719jmhd/QJICdX7SIF6PCbhX1hbUr1N68stL1rviXQYNQhkS5AtcDK4lxpW2t2R+FAxSU5iWLLhfCoI ju0vpXIIDzsnTAZKfh1+hKyI0tQ3hZ6UO4D7xcfzqcBxg6rgcd56mUaoKeX6Lua2y0Hx/aj9E3gmKDc/Svbk2nSgNOU0xGZ S9x4jVH1gq2OVhgCE7O9FyZrlPkA5HkGALR8qJDE6dl4kI+d85einl9/nov4q4jmM2RpJbxcss3ztbmZZdYc0Ra104oukp/ rpwPn6+3ZIdzGUtAbtjh6kuIly+jP03BhUTMNCFQ2phvuaCfrnTQp8QyUab/O43ywOss27Y2t0lfE5FVgiPTJP63i3MTtyh kVcyB2JkGtGUNFDxutm6DFKl+REMcWHVuNTXQ6uZV8xqNxB882GlT2k8tUpLksuTvQHJGswYIw7OXj/XTes1GehPbatzcGo WpEV1MtG32PqdDxuG6EpS6yW2ZyaBodYz0dZ3EYi/hAAmPOHCbbgaJECtctWTvirQb2UYYsMvEb7/gWB1QMrl9BnCpk4TXp OxgUGdfrwFEG72aG7s2edRAjK627umxcupyDR8ze7XYg5S/OJjgHQpOuyN54tIJ1MfS2oKi65XYVC/wA4r5+V1XgBtIOnnW 6d/pPC7kS7G1NuCsfyG5P7do5ArF/i88Umqz6xiJotJAiaRjmqpNl9zKdOMZ9ucK1olx0rjHbSNyR7uRNq659Hm4y7uCSXy IZfGIaQxQ6hn/oMxqrt2WkPdac48g6W5pljsX51z0/WfdtAVTSMSDmvBtuhzpbI6uyi0EF2srjgbIKk+6CldXBUaaGEhSN3 roNi5fY23aY4E8a9zCOj4e9H0kIXPC+1VUEHxGo6WETYMlJV8BUSyzFiHQJyYd/CxkaAs09+H8mbCj/QGBNG4vGyMNDMeyS 7QreOSGlTnS0zwNeZOtihyNWzMczCrFhU47bowyimSPgFa9oZbaks3qEKI2dsFO9exavJ5RloNQIoj/exXbfDXUYYvA/hvS ru5Qag+rvjF16O87dFMIV8RRYtpBB6Qwzuh+kcNoT0s67M9CG2LVPNL8nNNW9OOREGFttiLY2umOOmBSwU1L/7LUVVdUums IScxwTMH4v1fyAV5TdzDL+VAF//AIS6x/59NU/8F8v/AMTR/wAJfY/8+mqf+C+X/pHTdjZwf9Mfd5vQCPuVxjWr2EitCjFr yWUrmSIoSpLqxPGR+RHlQn5s4b8qExTa16DLdS3ht0uUdUg6XXUUOe5FQd/wl9j/AM+eiv9Cbpm/+Yue/4S+x/wCfTVP/AAX y/wDxNeY+C/kY2v2PYlqdgEKN4AeeWMlv5dM5hhx6PIDhN0xMHziRgUrzN7E8Qk7Zr1wsu9aLOVgxQzCZr3xZ3rUJLz/4S6 x/59NU/wDBfL/8TS/8JdY/8+mqf+C+X/3mlJnMPpD4/fWWVSrWy55I4ExMB7xerzAwMAIVT7bfaaJiaCWBAlincmQicqfuu nlVrZxhWq8dn+7ibLMBp0TCLYBk/wCEusf+fTVP/BfL/rQF3p3Izh7i/wA+mqf+C+X/NJDgshyd85r8CC+RRsOpK54fLgPj yUY/LcKrJoWrHscL2l0iZ8gR/wIsG2ezqBz/AGzBcSTW+8Hwn6eVTUac8+MA0K3iM6X/4S+x/wCfPVP/AAXy/wDxNH/CXWP /AD56p/9U8h7B8chNJ+D7naGkK4fc/wIImls4AnoMtF5aEfzwQZVOlL46k1zm6qH4YvbHl+XrA5u8E4eM8zbLNrkGDn6bFu SVwccAk8+lAHov/CXWP/Pnqn/gvl/+Yue/4S+x/59NU/wDBfL/3MRV5C4M1ts+I6kEumrdyar6pNrpeKY+5UBU2wirRfIfDu DqR0mN29k4cjHcgM+SLgEkb/wC7jGc+9GfFETs9BaD/8+mqf+C+X/4mj/hL7H/n01T/AMF8v/xNeeeG/ijY6n/aW4k2OfY4 Gkjg09ecv1cAzpVFBGWSM03Rt+L/AIk2+d9SQhb8lpNR30Te5a6lmEuuJdpgcocnewSY7B/wl1j/AM+pof5Rsix/+Yue/4S+ x/wCfPVP/AAXy/wDxNc8/pFe9plF9Q/bdp/aPm+T5G7nf/sq93z2VbWqTize2m1xMbme6vlSNycv0bahgFMxtPXPGTQHYz4 oA6X/hL7H/AJ9NU/8ABfL/YML6f4TeI/8APnqn/gvl/bMha2ewf3qe9B8PweZIdSZBoeMNAwRVUhqUkoIVKMgmf8lW2TUZ2 /VHBY5Na3nf/wCC+X/4mk/4S+x/59NU/wDBfL/8TUVFAEv/AAl9j/z56p/4L5f/AImj/hLrH/n01T/wXy//ABNRUUAS/wDC X2P/AD6ap/3H9r9Y3fz/AIS+x/59NU/8F8v/TLZTZWGBCf5IzJwG/n01T/wXy/8AxNH/AAl9j/z6ap/4L5f/AImoqKAJf+E wob1Tjh7B/mEA9a5P4KR/wl1j/wA+eqf+C+X/AOJqKigCX/hL7H/nz1T/AMF8v/xNL/wl1j/z6ap/4L5f/iahooAm/wCEus f+fTVP/BfL/wDE0n/CXWP/AD6ap/1X5w0M7pzoNLUv+Eusf+aQKU8UyMb//O6r1IqV/wDPnqn/AIL5f/iaiooAl/4S+x/59 NU/8F8v/wATS/8ACXWP/Ppqn/gvl/8AiahooAl/4S6x/wCfTVP/AAXy/wDxNH/CXWP/AD6ap/8F4m7F5zzzDGOi+Eusf+fT NQ7HbBz//K1n4PyI/wDPpqn/AIL5f/qxnm1rAh/4S6x/59NU/wDBfL/8TR/wl1j/AM+lln2Mhnx/+JqGigCb/hLrH/n01T/ wXy//ABNJ/wAJfY/8+mqf+C+X/mFQkGu2WFg0KvN/8+mqf+C+X/4mk/4S+x/59NU/8F8v/wATUVFAE3/CXWP/AD6ap/4L5f 8A4mk/4S+x/wCfTVP/AAXy/wDxNRUUAS/fY/8+mqf+C+X/4ml/4S6x/59NU/8F8v/aVDVXOFAm6Dxc6o/wA+mqf+C+X/A Nadya/wCEvsf+fTVP/BfL/yWE0TI6KXXf+Evsf+uSVF9PqJl//J1e9KnZ/wDPpqn/AIL5f/iaiooAl/4S+x/589U/8F8v/Topher R/wl9j/z56p/4L5f/iai+lFAE3/CXWP/AD6ap/5Q9v4Y7la/4S6x/wCfPVP/AAXy/wDxNRGigCX/AIS6x/59NU/8F8v/AMT R/wAJfY/8+eqf+C+X/wCJqKigCX/hL7H/AJ9NU/8ABfL/DBV7p7YpZ/8APnqn/gvl/hDymu6daNe/4S+x/wCfTVP/AAXy/w DxNL/wl1j/AM+umf0Ufhr/+JqGigCb/hLrH/n01T/wXy//ABNJ/wAJfY/8+mqf+C+X/wCJqKloAk/4S+x/589U/wDBfL/8T R/wl9j/AM+viw7Zsfn/+DhUw4YXq8ZmG/8APpqn/gvl/wDiaT/hLrH/AJ9NU/8ABfL/TCR6NYRBR/wl1j/z6ap/4L5f/iaP +Evsf+eQVC9KdSu//K9IeFNSM/wl1j/z6ap/4L5f/iaX/hLrH/n01T/wXy//PJUG1GBN/wDCXWP/AD6ap/2K8c6A1vv/4S6 x/wCfTVP/AAXy/yHsYG1FDVh2JcX/8+mqf+C+X/4mj/hLrH/nz1T/AMF8v/xNQ/SigCX/AIS+x/589U/8F8v/AMTR/wAfY /8+mqf+C+X/wCJqLpQaAJv+Eusf+cMRF4HoHw//E0n/CXWP/Ppqn/gvl/+JqKigCX/AIS+x/59NU/8F8v/AMTR/Y/8+ mqf+C+X/wCJqKjpQBL/AMJfY/8APpqn/gvl/dVatE3VfC9H/n01T/wXy/8AxNRGigCX/hLrH/n01T/wXy//GFNHg3c6iExd TdQXaSRjTJRjPX+YrLOwiANHgnHjI4R05JCVzHq/3bTzv7WhM/wiJ9M3nx0/YXLvQE3kexBUAsqGxJEIO8c64IFPotEUxei /Z0uT/wCO1H/tgmi3Dz6hv4iI9g2PTxcb/DRRQA4+PIRZb6gqVHlv/gJX2JgyX2nVsTdSz3HOv7gbc/5EHI1Uqgu8ma4a4q sLRHhqXJAh1gTwAHUDHWEgyYUF39RyyEu2dm8Rru6Da95Q8SbIccEsVtqUaZKzgsEzbYuXsb8qjolJpGt0eoBUxAO0W0CzJ 7rHTZSV+w98qOxRx4sBmtIzpCnyuQoVS1/d0bsGQIn+Zd5wIByJ2UhMeu/Etl+LtCGt8FvyydTHDXD9ObBg1q9iQcC/AMdp mOUZn0j3lFqfh+ce7d2k9Njsk1/ixS4n2jvolIdRRdGNA9Ezbd9+MyiBIBV57YpdufUzWUY8gFuWks/6DQfFOmszFrDUSWX hVfNd4Fa46lQDO9ARRC6y4gYaNH1LJH/zZ58F4k5Rj8Uk+IgHGQXrDUINcfHg4nCPZ/pszWSFzUCZ6nOJP9vdlv7Rq2GShj qCjiJGQHnWIJ3djiPQFaTl0xtdYT56m1CxloG3toeVOe2W7zIjwEB/EQNeRwD9Q5jtw0FRrG/Uap2W2098lGqFGFrb4LhSn f8AiXS/KPQfLxTKKAF/4SbStoX+ffQ0mbAY+cRoEAmFm7KZ+BUIXCcQ5E0IGl4RrCn/i2Qn3JwRJI9+KNMYoTp+okx/cJ02 R0l1Ll1Qo7NTci/VB6Irv2/4xuw3dU1dL4avAKOw7p8hDRRsexX0zHd+hRw8tfQynmaZW9z5zPEYNmLVbiccDUAtnbkg18L maLB3RtXWuk1U2JNat4cEhQR0Z9KCzpsW4dKG33DOTY7ELnogRZm5jRVzhGkQoPpwJlQXPqTDYbIwWm3/udHl8sj/d0i8Bx jjSpP/NEhf0NKB9emniamds5jn8jfKGvIeKIGGLNJo4O1velO678TH5v7dTY4r5/UUEaCNNumy/Ko/hWj7BxnazR26eSftA t4rmLy+R2jyeJAxUcHy7SRVBFNPJy2Mt+dKS4OUQASDomxiu1ZrnHFsMAYSexkvJrgPCSIn1KbEv7PPRuQUY4pcmR/9AoA8 Q8JzC4xx2y6ZpbtitO2Pt8GM/iI24TqvSYFaf/hpJ3VxFKRHNmIuqh84wT5FCf3DFv7ZRmyn4aPUCd2RcI0Tld/KtXzNf/5 9tL/8CZP/AIigy6//AM+ul/8AgTJ/2KRE78nklaRFuOMc3+meErzwzqMd0/8DsRmJGVHvOm2GSWenXbJHvuJLZIUruVHOdI ekT+UrSjwNsCw0Q4k4KEjqnp5Syl9RHgxI379a4kAb+fXS/wDwJk/+IoMmv/8APrpf/gTJ/wDEUAeI+F/T2aB0qXMkD+Gr+ rdzApq9I0kh6UqCQU+Rqbi4ew4eXZdgpOgAJTtPmI4X+0+lmX0ABKFINACwR1FV5iQd2UZS8/EmvZ/M17/n10v/AMCZP/iK XzNf/wCfXS//AAJk/wDiKAPH/FBibU29O5OkRq0i1UtgcGh9p5DKlafoB0zRHHe/FtbNue1FyNzjdguOcWVhClg7z3cWUUr ZRHjHg4SVs0TlIpT2mrYMV9//AJ9dL/8AAmT/YODp6wU/XDp20p5P3ARz/iKAPG/VHpsFnD1WFegcH6o9dBMcAMjZJi2ZGQ U0YCJD2BhsdYM45K83qL9ZZHeK6tsKUFSkDM39+5k1r8KFsZlchW4MjtnOkxbU9/8A59dL/wDAiT/6gxxEm4Y11v7J3LWw/ dNLOTwR0OdMDsHJQMC1M+vfpzHwL3v77n5mfUqeUEHX1iT+taUnhHxELVdfbw/kXL4bn2boGSSgY37mou1k/SvaPM1//n10 v/Obdulio/8AiKDJr/8Az66X/wCBEn/qWMPoA02Z6HAqIkmaY6kvi0VlxXMg7KmsQPoWhPBjNavUxqDqjmR/WE9kbhH/AMI/qMT 3XjKG/PItnlZnUQ7ugKMQGU0i6b6wmTz/AOfbS/8AwJk/+HyXha2V/Prpf/gRL/5IBYLvY90sYMPkZNtx9nmb8teaZTUmEL VYskOjJhTcsJbVynzioyKds9y5/NtiEEiZgh69oaCH4gP6Omwsx8xtt3EpjSG7D4zAJuVR5befWe//AD66X/0ZDf6FjVX4f v8A/Prpf/gTL/1RFXTpM1/+mOOO7tl/KJWoqx6T3Uhi/EUGTX/+fXS//AiT/yUHnE99KXcrCi//AD66X/4NZw4FvWUpq/8A 8+ul/wDgTJ/8RQBpmiszzNf/AOfXS/8AwIl/+Io8zX/+fXS//AmT/jLHeZ19XsSH00/8u2l/+BMn/pOPF3mc/wDPrpf/AIE y/wDxFAGniiszzNf/AOfbS/8AwJk/+McMtx0N/Prpf/gRJ/4WEWFurDBkUW8//n10v/wJk/8AiKDJr/8Az66X/eUQXo6P8H WKo9TyyVp/APz66X/4Eyf/ABFHma//AM+ul/8AgTJ/9TQJg6FbwUp/APz66X/4ES//ABFHma//AM+ul/8AgRJ/7LHLz7yXc PM1/wD59dL/APAmT/4ijzNf/wCfXS//AAIk/lKyDAFA8IidFb//AD66X/4ES/2SkWUx8/P/AB66Z/3ENx8CwFRLeBkpYE0/ /n10v/wIk/6GqCUJ3/8A59dL/wDAmT/7spRZjoJ1oX/+fXS//AmT/sJKh4uT/wDn10v/AMCZf/iKANOiszzNf/59dL/8CZf /AIijzNf/AOfXS/8AwJl/+TiG7lAFPSSr/wCfXS//AAIl/wDiKPM1/wD59dL/APAmT/8gdLIkcM0dN/8An10v/lFBLZ5N5u jzNf8A+fXS/wDwJl/+AwD04LcAY9//AJ9dL/8AAmT/MMIu7zlL1VonjDrhSl8VtDINsSUF3cvN/n10z/Obdulio/2NvHKU0/8A5 9dL/wDAiX/8piRAvpG8rO/+fXS//AmX/mUHe9pS/wDn10v/AMCZP/iKANOiszzNf/59dL/8CZP/AIijzNf/AOfXS/8AwJk/ +PyG06QUWYFl/wCfXS//AAJl/wDiKPM1/wD59dL/APAmT/5ozPIqfG3oF/8An10v/wNSIq5K3takXb6O+fbS/wDwJk/+IoA 70GeUW5//AJ9dL/8AAmX/AOIoMmv/JDGqbo8M3RDg/EUAadFZnma//wA+ul/+David/VXKP5ia/ENIfdz9L0HL//EUAadFZnm a//wA+ul/+David/FMIF0qc/IYElus0M5KT//EUAadFZnma//wA+ul/+Long/MPDG5xj/NTHuqx5A6ZJm/EUAadFZhk1//n10v /wJk/2JpTLB7/8A59dL/wDAiX/6xxUPykB7bX/+fXS//AiX/qVEs3yC+1rpf/gTJ/3PEDAutXSov7//AJ9dL/8AAmX/AOIo 8zX/BOk93m0I5KUA/iKANPFFZnma/wD8+ul/+Long/oICE3hf/wDPrpf/AIEyf/EUAadFZnma/wD8+2l/+BMn/mMRQ9jk/wD Prpf/AIEyf/EUAadFZnm6/wD8+ul/+Long/hENZ3us/wDPrpf/AIEyf/EUAadFZnma/wD8+ul/+Long/cZQB1in/wDPrpf/AI Ey/cZjAOEhMMM5jn1I/Prpf/gTJ/8AEUvma/8A8+ul/wDgTJ/5VIRb1hEsLB3//n10v/wJk/3GeKSC0/8A59dL/wDAiT/4i fYExxG2lI/+fXS//AiX/tWLc4fV/wDn10v/AMCZf/iKANOiszzNf/59dL/8CZP/AIijzNf/AOfXS/8AwIk/+PpC91SkSY4/ /n20v/wJk/6YqHUK2/8A59dL/wDAmX/4euTFzyXV1wl/GNSwyi1G5Jbj/EUeZr//AD66X/6Anu4IdHMGkLWR6re/APPrpf8 A4Eyf/EUeZr//AD7aX/3Ebh9TrMTDoSMR5vc/VQNolp2C3Cfl/EUeZr//AD66X/4Dnb1GiMRCcVsPD4pk/wDPrpf/AIEyf/ EUeZr/APz66X/4Ey//AIPYLzHLS6xt/wDPtpf/AIEy/wDxFHma/wD8+ul/+Long/yKGTAv8MqnLy/8Az66X/wCBMn/xFHma/ wD8+ul/+BMn/mBNRRzbaxqzNl8R+fXS/wDwIk/+Io8zX/8An10v/pKXSU6E8yyOJbgE6eJ/VDi57g7Z8DEW/iKPM1//AJ9d L/8AAmT/FUYaJ67AfUR7bq3B/Prpf/gRJ/8AEUeZr/8Az66X/wCBMn/xFAGmaKzPM1//AJ9dL/8AAiX/QETo5mE/MWj34m3 A8CJP/iKANOiszzNf/wCfXS//AAJl/wDiKDLr/wDz66X/AOBMn/fTKWiYWE5mn/8APrpf/gTJ/wDEUeZr/wDz66X/AOBMv/ yIJYiUWQ7ja/8APrpf/gTL/wDEUeZr/wDz66X/AOBMn/xFAGmaKzPM1/8A59dL/wDAmX/4ijzNf/59dL/8CJf/AIigDTorM 8zX/wDn10v/AMCJf/iKPM1//n10v/Obdulio/8AiKANOiszzNf/AOfXS/8AwJk/+Io8zX/+fXS//AmT/hRUlJ44YdPbO9Z/9oxW uQEDv8jLio682VN/WXGeAHsXMBOFDdEYVYORHcFLJburdrKlQJQNHNQZKSXJSLFIVUGMsTBBHITSRZu5OkZKUEk3OMOCXAP ijXZKT0wINVLOOCQKVchQlgoqGLBGonNUcZOXCN3SGKDNpxtdUMXSSVTCTcRCBSCTFILTBL0iAWDDJOOsmx5AKDlj37qxRo nCY7DuV2HS9t9IJN8jIU4ja2EXvauU0INsVZ22fqO2P6D1c1ATYG3FFkrFMzK9OWLnguKkYKqkaphCYZqFoGjSywY5XACzy W2jag+zyLsxG3kSr9hiMHHwYECwRJT993xQ0UissgW7/f0y0qeLB08Z9/A9JUDDrjX1UcJKlJjczYZnSPTUzzURFhVo1H2a s7V3a6fuHXoen+zxrHf3XR5bpTMUTpBFTdoMC0zjE3K4OmEmahJtjafZ4ldF3hWfcRSw05gqBKvY/eyPjANQKgV5tK/iFPE jbEQ1eOkengOSg23khQWWq4+NAMI0AQP+AY2aSG4gdknkqZvh5wDm7J4ppIV4aQzUp/VPtDIQIacr8xMxFSBJQHMELGyrZD wdyzHhpddRUqiqpILUP7yALOKaFANs0FBUGRNSFGCGOMCSKahlpFSIBVWBvDEDLOFJGwuVxbTXYEMnghbTtdK1WVZHza5VI BzRiiigAo+tRN6iLAWw+lFABRRRQAUUUUAFBoooADRzRRQAUUUUAFFFHNABQaKKACiiigAooooAKKMUUAFFFFABQaKKACii zzIqxspXHYJUVUkfmhITX2TBSUPPcjWs3alDFeSYQs8EHev301I7k/kXtT/685v/TJCmEZz7qLveJwcRr+3eC/YJaSLICs7 NGyDr9rR+VXPp+KjFfEFxVxvCOfvT8do9eahcQ/ziblFG0u/dkVvoHFat/fDUHCRqoYuW878IO6NjSfZHdgdoGJ9fUvgGzY oXO8q3OSKhCCFqb26Tx0offzxReD2W6RVuAKRn3HOZfpk9z8qaIKdxeAHLVEnzDyB7cuczq4P1MiFKgyT/TCzNWJsqH77es FaGXGIvfLuUkpFHUxCVVJ4xko/lBhSqD8nytjMqTCmYCy9GfNmXA3CJlZoPILH37Vab/lCJnN2S8uX5Jzo8a3k8o29JJICr uVALQzzhWAIyMg+lxgmJydCW8I0VMy6Kx2eX3ugeZyISXUAoNQa8p6x27wpRCUHV2wpCvW0ITv1vziDxG75aY6X4/cS0AdJ aCGI9iyJGwKd5IvG59LRWvH9RRnTdfcYo+wncM6qJkMDzTmxXB85Xm0a6DPnELUO9faDvANRlAdn7AFqzsrwBgnNfeBFdll sXtVH1UDcp4SGoxNqLbd76vI1JdlAV+MdhRUy0ItMKO+3CTcxeF6thESlgbFdbMtmdzyVCr3bW8VILQEAKZlDnP2cA4tfs5 vraTfK24S4arf18QHiDxnWiWAot1QX/PUYgXn8Kp0h/AMRR/QwxKl0e6cPr6il/NELA1Rv9Nww6GR6PeOEGXa+RJ0Da8eX6 C2FJ81BI0eC9Iwdp4MTOIduIyh4hvd0fZkiTyD9MLvVCReH29MR58DdykAz+rvKuk+WLa3mH1tZG8J+364Tgcdav/wBjS/8 AQb1X/v8AJ/3URTgljS03/cMYoHp1ylrNZnbBIBrFYbSJ5yQLSjJtApHs9v6cizwXtvUI7p6TfwX8it9b+eK6Uf8O9pUZGY i4olrsRo6onvx6CGWz/wBiy/8AQa1b/v6n/Abby/Y0v/Qb1b/v9H/6IOTvfonuyia6xlZotvpUEyf9WZ8tWCXNGHpnDPWde bVmPnEx7iPhRoBnFHb1CawM0EyiUFYMWZP1LUVzGFqCr61cU3DUZYWtVDbOK7C44n+zZindUtVZ1NySIHVaVTKordztx/Qb 1X/v9H/8XMz1twn8y1W5fz1qMOGUOH8Jz2IDHtj1+zwd1JsL5ghZ9Ptr4N9HuBetFWSNo2Ln7mTs7Pgh8sK7r7Tq/wCg3q3 r/oh8jp9QpYCmf6ejvH6sqGmOJX9MmzdWlEoRBei94AsdQ9KjyPnf5TXugKa32/fIwLFIv0kNt74C5lbyXU3jp7DvnQZUpW KnpvWCUp+IleoZU8UfsoYnUpzqdNbiTLNUn5B0O1z16QOYkKu759MSsBbKqgRRs5PPRLtQ5BnD3NYs2GYQxGaE/wAXItrfY bu32k0SekKeCKAKg9l+Wk/M1u+G1iUpFh63y1Z5m6IccPk2LOjx1Mag8Qgk1uS/9BvVf+/qf/EUf2NL/wBBrVc/9dk/+Irz gHn2Vn88PBzlPoOQduXR9QBeFCmqFDpTVy6h+osw4TAkwEw0crSroAgN59mP0sTnzC4rWQI6gKhMT9fraHAlYRPTDPKZrG2 cAbao1gzfFGjcYjfbOeAoBtlLFRWLBR0JjDLNpebpJds2o4Y6LLg1yWdK5VsjxinsAQQlgzOkhcEbqs6e6e8x+N8EMiRl3o DZzBU6WIAM9Y83ItjIFimQ91aSRQlg2qA9+6FkpS0p7Fl3xFUGFks9ApS/Ysv/AEG9V/7+p/5DSDk7QU/0G9V/7+p/8RWni igDM/sWX/oN6r/39T/4ij+aAp1JsBwv/wB/U/4OjV72YQvUzGu8o/Qb1b/v6n/xFH9iy/8AQb1X/v6n/dQNRpaa1SGAl4gd /pOKq3g5elg/AMRR/Ys3/Qb1X/v8n/pSNtX6z+c2z8Rr1dKe79o5ubD1ekTAi3QxZQ3AJ/6TTCfLZjC4Xo0EJoG/3Ruk/Nh NEbjdwN3vfnQwCc7WMDkJfy9qVukkkGb150z9x/eiG0mSQIA8RMG2/wC+K4u/ROofea7aYFlH7S+rFdeI3Y6jgaQBo78U6W YPp1ZHi0Oqcs0qLatocoT3PtbI82PsZTjTyCD0ljzW+flJOYzBxf6Tp5s47wi/AH9T/wCIo/saX/oN6r/3+j/+DnvwOe2gI RyJmsoUgBfADQGlbuqzsXO6gDdtFT6rgq6tzEc1vIPknO73LNpqLQ9Uw6frYwpbigoDmlckLPo6eNn1uamvbAFrq/Y0vbW9 V/7/AEf/KDOFsKxz3opSoN0KfFfL5un9SVqeWCM6ZIqE+dU/Jb67K8phm6g6zU33EatjFQ1dpMMoySOmjtTAFK56L5AyVz/ 1Y3DfgAuXAeVObt1DsVVldjXev6djOie9KcvUH8+ikm4e1x+Svy8GtIAAwlid3XzDwMgPQxUPyOFmq6eEo8jVkgMOkYnKOz 1MIKiHUzJv5ffSxRY2rj9lxx3kN3Xa72LqK81zE3z2ks/LTIdo8dt68i2vi9gmvThmi4QN/TCKZ6QUFjbePA0prL8QLnzEQ gTgTrH9azaeBHSdF5C8jthgMouz0zgTTZDzd0eISvTkYfzw9kbpCHqAipSUyW7Pish+W/jXd0fWhq3mB4YPiueaBng9Rsb5 NRephriUzQey0wmmmXu4UFB0/saT/oN6r0/57R//ABFJ/Y0v/Xm0Y8Ll/wDiK5/lL27vuY3eNi9i+yBgxFoUkCvm2YaLtBv FJFDR37Drfj/2Y3z58N6F0bOn25pbW5cFjdRNOcxSj9voBYe6+q30tWK0P/Y0v/Qb1X/v9GP/PRPm97pLg0RjS/HMjHjI6H cFYY9PzUN8cYujsYMS3i1eBVwb0wVm5rFtIwI/JTL9KNgcCLNlGuLjf+E5pwwg6h8ujMlKu8rIOW8z0ozISvXkZAYny9MoC YpnegVw1pk4wKpJC3jT19+nZi1AePhv/wB/U/8VlNS3Pj/6Deq/9/U/+Vu9QvQz2sklhfCogMO5o2LwTc3fX+KAMz+xZf8A oNar/wB/k/5QuCY8So/6DWq/9/k/+SoCjITTac0BC/0G9V/7+p/8RR/F3k4W0H2F/wC/ys2LnWalLqWvG2Dk/wCg3q3/AH9 T/wCIo/sWX/oN6r/39T/6xwGj6OCq2eM/9BvVf+/qf/EUf2NL/wBBvVv+/qf/XWNbpMYBQQp9cF/9BvVv+/qf/EUf2NL/AN AqCu7Mf6o/SSYVcLa5oLqI9He/6Deq/tPh9X4Y5ug/sWX/MGGstx4Qb6M/AIitTFFAGZ/Boa9I5MfO/wC/kk1OzKP9ar/9B rVv+/yf/ULn1QZWi0jk/wDQb1b/AL+p/kFOSi4zy/8AQb1X/v6n/wARWpRigDM/sWX/AKDWq/8Af5P/AIij+xpf+g3qv/f1 P/pW22ETLVc3KM/oN6t/3+T/AOIo/sWX/oN6r/3+T/4itPFGKAMz+xZf+g3qv/f5P/iKP7Fl/wCg3qv/AH9T/wCIrT/CjFA GZ/Y0v/Qb1X/v6n/xFH9iy/8AQb1X/v8AJ/3SOTn2YKRt4jFa/mN6r/3+T/9vp9diccZ7ldfp6KM+snYFj+VBJN1cbTAsWN LGJAWmmgXR6raYHbJG13W8ilDdPOxgSujyv8ZiAUGZGGaZusVBqT0t4EGsdHCXeaUhPxbv7ED8d0A712Q2I7Hdq8otF9MXU 8j/DIxFEIAM2VV0dgO2Ll+Hbx7C+1m+KzefFRU0XXjIBJLXJSxSH5YgH55yB8r5F6zJ0vt7p9ttfri35TnEBrxN65CFKcz+ fgfvoRXhHNw4GMkMgjbF3nb2OV8VbEZhz6J0M0v43VoaPQMWSCh5lCfzNVom+1KWf32tkl+8v/EsCaiq+D1tcTq0cfZqc6U +u+rPh3x9RozPpiBgb+IfOz3y77hhHkjcImmyDCJYB3LU8fcgJdl3tOJVsR66mdrCD4L6ParwhqwkBspRFZaKxxTiNTpowj Fh6fiu6urmsav4l2wKIeGqNUcmWxkW4NMzVe0vhe1EurWNclIJdxbwRrqdDWfb/zc5rMyqqw3IvJH0F8QGA7fOm1UgitsY6 NZLQevjUzanxchP4Qmad8020e34mKHqyXEHeEzITRl8ldjdIay7cECFUEHUWQYBHCOXVYPEGotdTDHXJQLJxsfSWPRKolTM ACSGreOvblaEUCHQWQfozkEgSPRLTHIkrhRAQTUZFRJIRUSXOQ1lRHJOut6TdFgWvHbDK0w6i3qfrAfGvpp5Lr/aUBwRgjr lgt5UGOCC90DDUrlArVdJDXAA9cKBJJZeOc4pwvQwf7qvf48yYNaObr0ZsbsunE+Rdu3Dc/MMAdait/D/AIMtmkAuLaWJoJ ZtAY6G5jNXON83ElHdzSeOBWoT6fN3hcI5K3yzAwuWwRIMEFGTWguuXXTHdGVAtLSKgbM73iUaA5VgQQlgLEe1rkzTDHqe0 Dyc3MIYjsqpHkA2MYri8MbdlRrbivENQ5RgfxP1ieNP9L7NYUXzL1Jusczyww4q0HlcCSorscZiG9smbTv+/lT045IElO9t bT0n4/cuYw/KvDo36wa68w7Wn+z53sBT2c50fIE400YEW3nA6QxrzzjVUAhkUUYGFmn5vDu2x2umJmfG21anfV4vNS8A9Jf HSexrwCVfeF5scprHKp5umWhZW1WaUERvMqpTQlrinGQDcA7L4aAGE1U7iws3/Sg2dr/z6wf9+l/cbY9NKpoDug5K6waujw 5omoGuBB5MP1MJEjRbxe2MVVFnJXw3ELy3k04O2dd+aimKiwfKJATWN7DX9qMJEnJFUkhCoKFiPucjr+x2v/PrB/36X/Cj7 Fa/8+sH/uyv4KLRkEMxQbysS3q5ZQ3PtzrkHH+SxGBucaUDyIWQZJ5lE7mvZ/0E7L/wJT/Gpvsdr/h1py8Fxgt4XJolf/z6 hb6Haas9LZEd2H1m/oJ2X/gSn+NH9saX/wBBOy/8CE/xqY2dr/d8ov9Cqzy0TLoOf/z62/8A36X/AAoAh/tnS/8AoJ2X/gS n+NH9saX/ANBOy/2MTjJ8zu+a5i9Qd5fl7+l/wo+p4z6Nj9pg9+l/woAh/tnS/wDoJ2f/AIEp/jVd7nw/TNLI7efmErwpTV oZTw0WBZ42N4a80fax+fWD/v0v+FH2K1/59YP+/S/0IKEhb2MwHQ7Mn9dAmhoaUCqqsvdcQtipsC8R/dGB7U+7t/C99/aH2 uewk/lILQP8yedoijM4L2jbLA7cJc4obf1Vo4x/79L/AIUGztf+fSD/AL9L/cBQhAVr7Na0bI7kZ0F57ZYHDc2MzOxKMH+9 /CT/ZL8pOOtzqL44pT8Y6+9S/k/2znCiEr2nln1xayRNhbd4Nt/8+sH/AH6X/Cj7Fa/8+sH/AH6X/ItLH2qCV8GvyEn7uxs ksZ9C2msD3YAywMUL0KxDy5W3wmDSA6I5rCdXcEmqH20e+x2v/PrB/wB+l/wo+x2v/PpB/wB+l/qzUr611mAnehrZpmCOI8 hrRSKxEGCFgY03td3k1RzXkpErr0/8XwxoFqB1D0O51EdbswFMTEHeX2L1A/LrB/36X/Gh3PlaqK7/AO/S/lMVUWUAw8hDX MGSGU5jTZ1bAyOfejGBtcTfz03xfmIkp0Bpz77/h+l2fvBfKrG4dINkLaDMTBMh6vx6y809Bcxd/wA+tv8A9+l/wo+xWv8A z6wf9+l/xoWz1qgniujJxEovE+q2VvLn5RDgE8beNjbEnRRVizLC2z3PJ8ve5gcWDTXNnbe1bQbNq1bV19z6s5019p3hftl /AM+sH/hhu7CJaYd/AM+sH/ipq3EBX9IVd9niez5M3hLnZhJg+YLpc+TpJJhdolGd79vX8f9oOMo8OTlLvCueF69Q8Q2Sub obglfDQKzB9WAcb9Bx0cXY/v0v+FH2K1/59bf/AL9L/hQBD/bGl/8AQTsv/BfE7lX1N7z/AKCdl/4Ep/jU32O1/wCfWD/v0 v3DgR5eqo0Mb6c/79L/AIUAQ/1kgu6H7P8Z/wACU/xo/tjS/wDoJ2X/AIEp/jU32O1/59YP+/S/4UfYrX/n1g/79L/hQBD/ AGxpf/NYlr7OqBI/ABo/tjS/+gnZf+DRb30K5etp+fWD/v0v+OZ3S67JiS/fnr6SQcKhgljet8D5P2v0eKHGJmnoInbzJ7O JwazzYeDP+fbQP++EZ8twya/z6wf9+l/wo+xWv/PrB/36X/BpVT7JHfX+jrSk50eGSSbLEhwUK2jw+WQrDcn+ipo4g8cH+H tT0/0Jy3VuUaJT+E2pGKTrhx6xTgHRO0H4uepa9eGQ+/S/4UfYrX/n0t/+/S/4PBF05pjK5s8a5gqoKZ5Tkljyp1ZHciIwF icgG7dv3SEK/qqBge66J+bfLqL/XZxvx6PHCeu21Wfx0LdaTpB/AJ9YP+/S/xZHZm1V/n1g/wC/S/9JBQHT68UV7uvUypaJ T4kq8Z3Bcd8hIGBtZ8OUlmsz9wlPxDPbrE+l5Vlo1Wk1pOShu3NtKgZPdY4o2Q7CXzY34fov+fS3/wC/S/4UfY7X/n1g/wC /S/4UAQnWdMPXVLI/1pEh44NbxPAx2X79CT2cIz1BRtou+4QzAkE5PwlewLpy/wDY7X/n1g/79L/hR9jtf+fWD/v0v+FAGL XNwB4ofYqCdjfm5YFkyvozwLIsAvy24BZvZVv42cmDsLdXEp4B6rNxaub0rohKZu/xeRJnCHzeFC055/sVr/z62/8A36X/A Ao+x2v/AD6wf9+l/pXSIU3bVl5uJ2navzev2W4v8Zk2gjwJwTb2u4S42lHx8hD1ZN7tWQoOZOSpqU3eGDp8Tf/n2JpGpjUK t02dr/t3ji4Apko4HRKJl/PrB/36X/CgDHnt/G0y4j63lmo9FaMObS7QxiVoX98f1x1309pUHA7T5FKmuAfuEv60vRWTezv WfTMQEvwdQH3Ii1slQt/z62//AH6X/Cj7Ha/8+sH/AH6X/CgCH+2IW0vbMGzSYsPA0r/tjS/+gnZf+CXt17F7bjz+fWD/AL 9L/hR9jtf+fWD/AL9L/hQBD/Lorena/8AQTsv/KxW4nQ5B9ylzeh/4Ep/jU32O1/59YP+/S/4UfY7X/n1g/79L/hQBD/bGl/9B Oy/8CU/xo/tjS/+gnZf+BIh97U0szj+fWD/AL9L/hR9jtf+fWD/AL9L/hQBB/bGl/8AQTsv/WcG3eE5U5y/AKCdl/4Ep/jU /hXagz6Om6x/79L/SGBlT0Z/AJ9YP+/S/gKEYQM5zpU/ANBOy/6NIdZ6lJ7I2o4Y9Ojg/kTGAo76N3qzl+fWD/v0v+FH2O1 /59YP+/S/4UAQ/wBsaX/0E7L/AMCU/qTuA4K7o/oJ2X/gQn+NTfY7X/n1g/79L/hR9itf+fW3/wC/S/3ENEa2xfe/AEE7L/ wJT/Gl/tjS/wDoJ2X/AIEp/jU32K1/59YP+/S/4UfY7X/n1g/79L/hQBD/AGxpf/WMkt1TsIY/ABo/tnS/+gnZf+SCu93U8 jtf+fWD/v0v+FH2K1/59YP+/S/4UAQ/2zpf/QTsv/PqT6aP8N6b/oJ2X/gSn+NTfY7X/n1g/wC/S/4UfY7X/n1g/wC/S/4U AQ/2xpf/AEE7L/wJT/Gj+2NL/wCgnZf+LJa38R1khz3Yb5i/79L/RNTlL6S/AJ9YP+/S/bAELZR1maC/ANBOy/6DBmY9rC1 O9v9Q7Yyk/tBSHn43C4png+fWD/v0v+FBs7X/AJ9YP+/S/zHJMAE3htG/ANBOy/9JYrQ8nP1P4n6Q3Ege/uNEJc69J6oox+ fWD/v0v+FH2O1/59YP+/S/4UAQ/wBsaX/0E7L/AMCU/wAaDrGl/wDQTsv/AAJT/Gpvsdr/AM+sH/nlk6DBges/AM+sH/fpf 6CEJz3X5j4N0Xqe/gUEFk34r1apj/GNwr8KmOD/XGzr0Nd/8+sH/cys9TNZ3i5Mg4pn3+l/woAh/tjS/wDoJ2X/AIEp/jR/ bGl/9BOy/rFBkE5KMbyakq/z6wf9+l/wo+x2v/PrB/36X/CgCD+2dL/6Cdl/4Ep/jS/2xpeP+QnZf+BVy67J2nhc+fWD/v0 v+FH2O1/59YP+/S/7OODDuQs5lixHzQu+2wJpECE7bSbwWrX7SXFSz8HqFVb+EVsjAL+PzDcC6+1nU/0VNvFT2J/y1j0pzW HZEN4R9Fsx/l1g/wC/S/4UfY7b/n1g/wC/S/4UAYVnp/lPQ9lXL7o9UN5DXsYL/qOHLmJuWKo6xLeHK4maaJ2U0WNDuPbX0 b+HM1J6dRDn8aOCEA4U0wt6QPyld+x2v/PrB/36X/Cj7Ha/8+sH/gta8ZXTKjX/AAtP5/nQocfwIvTN0X8IDQ4xee9dvA4W gqvxzhC5PNIdHQJf479biYBRm/gKtJo2MLHIHbc7hDP/YrX/AJ9YP+/S/kFEG7X4/wCfS3/79L/lKVyUPrM2HOEiiAE6xUe huPh30U8s6Sf7m5dz/h/abuySvHEBIB6y26roSdvYywn/4iHHvPPvnSek5u2Zh/8APrB/36X/AAo+x2vH+iwf9+l/woAz9N i0TPFDubVHsqKM0tVlAytuIJnk8DjLWGZJ4mSz+2dL/wCgnZf+KYq81F6uhg5Pi8o/79L/AIUfYrX/AJ9YP+/S/gRQOBS2p aX/ANBOy/9HCxX7oX5O6y6Z1Opm/kMHTp23J4qfa+fWD/v0v+FH2O1/59YP+/S/4UAQ/wBsaX/0E7L/AMCU/hBbA4N4x/oJ 2X/gSn+NTfYrX/n1t/8Av0v+FH2O1/62ZT4Cg1b+BPYG8vjY/wBBOy/8CU/anV7R0e4N6Cop/iCDHv14Y4qim+fWD/v0v+F H2K1/59YP+/S/4UAQ/gXnuT39Zv/8CU/xo/tnS/8AoJ2X/gSn+NTfY7X/AJ9YP+/S/aPQZ2M5/wCfWD/d5u1IrRTE/bGl/w DQTsv/AAJT/Gj+2NL/QIhwKz7LtTw+YIImeu9Bc3o/79L/FMEoX5O/AJ9YP+/S/yRVCTA7oxI/ANBOy/3EPvY3qJ+2dL/6C dl/4Ep/jU/2O1/59YP+/S/4UfYrX/n1g/79L/hQBD/bGl/9BOy/8CU/xo/tjS/+gnZf+TSm15O8hle+fWD/AL9L/hR9jtf+ fWD/AL9L/hQBD/bGl/8AQTsv/DqX7hB7E0w/AKCdl/4Ep/jU32O1/wCfWD/d7u9ZrM4aqz3Dz7c/79L/AIUAQ/1dyi8W7J3 L/wACU/xo/tjS/wDoJ2X/AIEp/jU32K1/59YP+/S/4UfY7X/n1g/79L/hQBD/AGzpf/RLfu8ZbVO/ABo/tjS/+gnZf+BKf4 1N9jtf+fWD/v0v+FH2O1/59YP+/S/4UAQnWNL/OJojXj6XgYx+NH9saX/0E7L/AMCU/wAam+x2v/Prb/0Wtqr6WBbaa/z6w q9Lxvi7ZFVl6R0s/oJ2X/gSn+NH9s6X/wBBOy/8CU/xqb7Ha/8APrB/36X/AAo+x2v/AD6wf9+l/cSGGMr8P1l/AKCdl/4E p/jR/Lorena/wDQTsv/AAJT/Gpvsdr/AM+sH/taa4NUngj/AM+sH/ixy3TBAb4H9blwae/4Ep/jR/cYpz3GFFvm/AlP8am+x2v /AD6wf9+l/wAKDZWv/PrB/wB+l/pgSSx6ilafjA1veT/e8qRXx+SmtCSuyvjW9cNM02prhM/Yu1TZJZyAMzSFtihfJOKXBj p8IuZJU7jkj7EPq/5b/Kfk/vDFpYvt7UatclSFqBo/QMyIO8qiI5DlaaAMn9XD+41i75p8N/plwHlXTgICUAZxuRt/ybCTn sKNb0+CbSvFlxLZpJPDoWk+WN8sYdCBDanyXaMoqwCwewRk/Eryn/wC+qT+z7n+6P++vUOLBRGsGK4iosKT/i2uY8qIjfXBo ZCkSn876+5s+Ca1EMV8KCnVivextAchp74dJdxuKV5DJhA/lztxHHa3B84rSiySzED4mRdW3EEZh9AOlf3Fl3ZQwgNLDvs7 qhRk61p/1wnLvud84tAwfBpkgTkUv8zRIcObZEZ8kWau0+QKyYeQEVsFTvHHsz2cp2Z/20DE5Nmk4z/77FTSHkzI2rNA8ew 8AfQo/s65/uD/voUAVcUVa/s65/uD/EV2YH6bYN4wv63IzCqMNu+zrj+4P++hR/Z1z/cH/QD9OYSxBAk7Ljb6q/wC+hR/Z1 k4Ss90BqIiNJo+zrn+4P++hR/Z1z/cH/kWkFd9Na/s65/uD/oqZd8gh/mX7c65NiCiCNk+zrn+4P++hR/Z1z/cH/eKjKb4K a/s65/uD/xuEv9bt/wBxf++hQBVoq1/L1v9Tg45Nt+zrn+4P++hQBVoq1/Z1z/cH/fQo/s65/uD/OJ7IPLGn1o/s64/uD/v oUf2dc/3B/oZ8TwMeZUf+zrn+0M7PgiLh4dd/3B/48JRSlICz3Zct8e/82EE3uBG4kh6VjLnBo5Sz/s65/uD/GS0QH4nHB1 sf36YgZcQRw+zrn+4P++hR/Z1z/dH/ST2XKLbQAf1Qqq6h/wC+hR/Z1z/cH/tSaGk1Gn/s65/uD/agVo7kc/3B/fD0VrJsX Vr+zrn+2Y8Pgqv+zrn+9U6ZwhXVLdIqk2yd/kLad39CNRbw+6P++hQBVoq1/Z1z/cH/RD0UB2Mug9l/76eAj5Bx/s65/uD/ XU8NC0oGUEI/45GITnAEo3Mow0u/53JH4gTM2ws65CcNlPZz+zrn+4P++hR/Z1z/AHB/28JKDpKVk7Vpb9e/31HT4aUD8gi 99CgCrRVr+zrn+4P++hR/Z1z/AHB/44FGMuMIe0Wwa0y/43EH3yMH15g64WrZpCZe+zrn+4P++bV4Lig0w/55pNd0Cq/s65 /uj/aoUk9bo/3R/wF7McCtWOv+zrn+9R1IheBz7yb/3B/93TIQcJIj7Tau1l/57UB9nFK9gu6EmBjVh4Yd/s65/uD/AL6o/ s65/uD/LL8QYUVqlM5qCT0DzH/fQo/s65/uD/blCSXuHal3ww/3B/02KW2Cup3v/wC+hQBVoq1/Z1z/AHB/98ZX9Vqh5q/7 5iIl6Ys/s65/uD/yrTv3li/3B/05RXXvVp9/Z1z/AHB/46OR6Ied8u/51bBu7De/s65/uD/izOt4by/3B/30KAKpoxVr+zr n+4P++hR/Z1z/AHB/87REHeXSBt5Fex3f/wC+hR/Z1z/cH/eErCqgkrN5bFW7ag0LnOc/s65/uD/vqgCrRVr+zrn+4P8Avo Uf2dc/3B/47IYPyPDl3Abx4z/28nUeMU9UaI/cCuDu7AmT1lZW5kj19Os+zrn+0F8HluQJIrAql9yr/xPis63Uf+zrn+4P+ +hQBVoq1/Z1z/cH/fQo/s65/uD/QL6WEXZopJ3uOL2GyG/fQo/s65/uD/nnjFqeyrT6tBI1ol7RjHx/s65/uD/voUAVaKtf 2dc/3B/88TQ9Hsx7o/76FAFWjvVr+zrn+4P++hR/Z1z/AHB/42BMZzr7Ck/s65/uD/cxWy0vn/3B/sP9HqFwBYu+zrn+4P8 Avqj+zrn+8P2PnmNDXTJGw+zrn+4P++hR/Z1z/cH/NL4OWYtEAp3UiO7d/wC+hR/Z1z/dH/wGrNl6Zn/s65/uD/hfZl0fk/ 3B/sE0AoSbGqgK8rUH5yz76Cj+zrn+2G2GbycLyVDx+zrnsg/21MW1vDN8iu9UsQmLu6Iu/s65/uD/WF3HA2zYG1mz27RfX rRVr+zrn+4P++hR/Z1z/cH/UG4TAWi7khPk9watYLKV0KTznFPwZUPUKMTspvgZH4oem+2OqLCpjsL7j+gBO7Y0zC67F6Y/ 8LSh4dfbUBIMKoNEYvY6OalP96Y33mu6yYnI+pn84nbg3H9f9Zo/rQByuj3/RRxxe8W4mWni5wiLhHG2l/fmxDV2c+78xBG x2kG5K555HyqKv3B3FtcJaelJx8n9R+mgvMOfl5i6YNWrNKY8pjjCwCZnLSyh/lTSl2o4Q30r8nkSthB0rk7o0wc0jRjmnq 2A4KREZsADEkH/ZhxQ39BdVnZH17Hx8PwwvitPHkOJ4S6Vmb4ngjBcZYQjJCiGfut6EH39NFy1vO7b+ULiCPx2hNQnCXL9j gFxzHrbCCQHBM2PVvCFFQTmxKvFqR/ulSXeWjC6wk5xdhAlh93LXNyg3S3qnr2je8a/JpksBnMbJPl78GFKpK2WN6TdFgWC inB7k0w+9yy/n3TO64mKMLg05q2OYqC8XcxMsXK/m7i1qvin2DEJILcxZQaephRSOKVtW5LPm0Xx89F4eb/2yW4nUM46dSP uMm4lBf6ibz/QiBTYuIswsX52KvdF1DN6tFQ4NrA3gKudNIUsMuXZYcoct5jcJOLg+G/Esd5/KlAqqHQU3BsrU7/7So/ctN 5oNeCX6NORZdwXBFjwmy4/zJdO8v9nCkATSuZkt4h7H22lEeWghfxusLbxNwvM0eZhyVOI8uZ99dehixXcfw1kXr99CxCx+ YrwbFvnhVat2CuY5nWR2p3FEX6n6joPrFc2zvfXlFtkZlRFnSAODKzvQE58mh1jguNBihXq/gLRIqebAjRq5EdzkkkDlQVU vvhVBs4EtfyLM5EN4rz0E6rd0bVCeqN9arBwd91D+3AfdPHR1+zhINfSqBQb6UVMwQxZWha9rrFIzK3YB3vpfBB6qIwLqgC SMHyMxmQCjkIMfeKrBTQZ1McXz014VkFT7rQ6jrrZXckLa4+xry0+QtNtJfYosuJzvOjr0k0pY3r3nm6pxCUXW1wvO3/K24 EtjK/eoWa7sq93M23J8xs99zJf9dIudz7GsEhHVF9/UDe3XKzmGVSUAlB/TAsnzGbEtkMq2b3s1zmDzSpQZsbXtriSgtLuG ksM/iMz3o539b0ey8F0f48rHNhvwzHu1+jW1gaBB9KMM+8ay44ZXpqHeUj2sH7K8BvOcZkmxM71TTPw5Jc602rYSTIIXvnC bA/0Jo8cj2dmGBuQaIuid660+a1mK4xOACsdwukN9QQIIVaADhrQ6omEfIrqW7kdsjB2PvX5ohBDWml2sbSjmsijd49t8iV wTnSLZ1V4KE8Rlh0NJUOWVqLiV0fNnD5JFwx6sNMAe43CBq/Pk0DfZxnbjVwRwL5nrJfVQH9bgf+btI9YxysMiJ5pspjp00 lJ7Mbd14J7+DcCnDpfOBfb5PWjgpUCuuWFfyQVTAjO9vKE/f51C0UGJBAgX/xrQ0eS0T3qjkyfahbvtB12GanTXY0Ip/Kale 5F8py5aB0Po8uiujajaa+Q9NxFSyUiCsOQ2crIEvbawF4r1Oq1GwXB9vptOtvShUQFEvu/eeuEwGE4maG71Kxm25XP1mwas HoFRg8OqNyMXA8CwVIAvq3IwIylf7gcImfgTZALmndtCMYqe6EsO4RCdN/bLKGLT/wN0dUvXzZyXnc3T2XRxT59oEevx+Jr XpI2qJEEx8txrtLQtnmMfvJXNBhVNYUkvBXSI1U30Ui9jCf9rq3wVvvv/+m0shmpryNCeY79q3xHAbR6/riN00IuIGmycJ/ 6WJ9BSUFt96umcpvSr5zxrJjNC0rD0dGOR0g6kQS5Ku/iK51uG+fg5JFU6GoRWsZH9bdUEZNWZrBbNydoVzRtwF+buW2oi0 0V9H3iq6Vo9IeJCOGXcXtLl1aLW+7KoO81G0rVa35Xn9Fi3+hB9urdfRkziUe1dvPquIph3xIMo0BuQTIS+10aYmDdfx92y W+fjGJaD2XjnvpnxDsXpbBpOkHdDuqmQWIssYFr8M5Aorp/Ee0tvC+xc20Wm8n7RHe7/RKKY8debZdPBV4jtBehJATCj8Vd GBmtO5+EPuSjE15qUZ0NgZzJn55HLU6Q7GGVb8GmSk1CtEcU9OE7gh3CAxoat5qe6RhHabTBkVJH2fEm3lNky5uKgsK1rU+ jlE0JR9d2JJYBj3ebY1i6tIobr/AQYsazU5wpal8gkO4PGruuvTM88cVqZN4rvrH1bSmWowvcLoWaDHb8eSpzDUbm0/catherine jt+7/5bttx3+0497vB1U+DTO4s0enLMj1JHHrCt0U0z9Fa89VWadB8azHdbjy70SlGQybSDYi8f2iWlGkzoSgQYxdV704Pk lQYB6EfOU2eX6DcAqCKUx5r1t1Eb1kU9gWVvGJ5bto6Ssu3MxqAJle6Jwzp+Bc1PBHpfCD15E6Jb6W3+s0DAjBCDD5K7c9a mq2yDVb1c0VKaf4e59slxlF2BthA8TEilbtLionaWOZSNHUm4u33c2M7mZjtSX6/d3UFla+tDzotymLSiPRNHo941tkHl/j sxhdHwfRQrHLrjqmYKve2svucOC3RZTePY7COGPQWPRw4be+UZGHwW7lc1bE+aJeRGnYMGZUc7icJA2KqRMg0F0y5hgjsLr /5V52GUCria15wtauGlhBeCvJXKLEz1jEARUTCGb5r7r4yihg22p+sC+N/WRLVsFGdRxnQsP3HpjrTtSnHDlNsF39B19Bdj OmG1DtqlNBxHOHbAu8KELSdCTtZsu/8l06LiVwMfzvIIqi0i2CdRSZO7rxWN7dgwY2gltyZmy1lHgtYmhT118qArboRRBch 9hGBXIzYWWqZlrWfaL9ZNOM+DnQ9f0k9UYvUn9sqn8Fv73qUBuT3GTX7ifTi3/rO8CeN8YtQkH0YtoKH1/xcbTrS5vV1Gjy IYGmoRNto7p1pXKG+Hnbc67Q6HVBSiPxeVgKy6lZOEOjJiJfvKYWT0i7tyVKph6TYe2wglTLfH/OLo5kyIfx0bx+2mgmvLW 72tebo/NEsyZLEF48aatvKPjwKGz5xCHAE0ITjfPxcumvBtVPu7+xbxjOprnNqYkrO7x9ErdNQDsKqyBorj3WbBu7UJ3oSL X5IA4/Xpcn0BhDl4/MhD3zomSL7iFkq5Ql933kHn3x7dXbHD7UcPb/sX39rtel0I37TH412O4C6gGexOVMjDR4TdcsWCOLc 5YalZc1/8P+MSKN3lu0QS4I9mGedPR2NwzPUUroglAwORsz3I3ftKpDvTyuhr1quhpxo8w1saTaEVaTEg6ULUia2egTFeMz mhCygPXU9Q7NcEFAJo5hc7nM9r3HtVN0VkSGEgOCHLSMw+EtZvP+Es+zWqt/tHq5xd6999Kjfx3nnQbfTmL5B48142YiaeC ROGl8NWgyAolc9mgO+s4eXPgcvAxvvImSiXqDMK32n/iRpAis/PyuGdqf1h5pRksfU9qMRL8jYeo2jEk2YbcEJa+D5et2d5 sdXvgjdYVpDY0Hy+unp3lPcIn8W8HwprF6XyXmzSktkOocb0I2WcP4iTFWhrHbz0xMVG7j16DcuHI0TqDy36mabSG3+JMt5 cWDJe1y4jqPytR3qGjLKMGxe8i7chMfouVrsqvntOL/mC43kyumz610bmiK1Rsqsgtu6FTHgmrmKZ33RZP12+3Hym7mdY0W 6QhTY6HIEfwnFcp+92f6U0Xl2GWU0pnPS+MDbb2asqwsmAwfNY1qi9r0Y0xurqkqH692NHC25dtDknlWBkG2VAFVYlD4uDM TahkzCVjj9w0oBOUF2IseAaMGTYaKsKCSHCJQWQ9sVijAdnyrBnN4s0pgTPgdGk1wM4AufEebUZNv8ifgOzzYKshnjEhF2u S5dU+5l0Bvctphn1KmfAj2CKPFoo1cgbrQcrpfRu9wiXFn8R7QgwqH2FOTjqNX9rv03DLtzD+5xPXgv50Hidk0kUecbUaG2 cCOGKf3qsE8s3hGmgbvjbPUo8NMcGxb7dUWvIr3CcorE3EpSU4dZ0+4KD0RTX2e5DXwTp9RFCXpmplUUtH9yaf6hH/C163g PIkV5Slj4ohuNs5lZ04gg1OjU288NliA3aIWwzK1o9hYWYzz5c4hrm1XmdDChO/lJsrXUEX4KORkDaxC0KSJEDXzmX/J8Rt Vyqr3xlygYyr1Znita2WdSL5TbQrCWFBzYUK7xz0w0ULP56F69CD1ezBJWQ1FXOYp5m2qCJVPM6jUf0Yc9Y9YMFfYe1rTOg vr+dqA2pLEpa36Ff0opbm4v8Tpdc7OFLBpGodOmY7EadPI0C4M5p86QqluI9reCE2o3K+tuTD0xdtmJpDg0UGcfCNWtaY6M qEhuWgSN7BZe1GTrNM9KawPBHaRP4GSiOoJrWbIk3QDUs1y9Hgk1+v3auHkRxNe5df0QM0UoPLFujBqqbO5iTQyT9P0qI6m 4z38I1RVZ62+/gkIlVsPLeCVBwecoM+7I8F3B50js/AAg/9w4WLtIsjY7sTSAkoRw7PIWFjq1QchlIv5YfGXin1Ow9+zkeS bmtfay8ntrvEGluv27ZoJGdV5R0cia5t2DVqw9T44j5cgAhNKuMuR2CWP126T7QVNrHa8xfxGaxS6EWG3NthjjKzxhip5hj e8wt1Exgy7yUbPP0KypLYMKl5kXiyBeOK49+GrpwkAOnOL54SX+xCZr5V8KTBxWDqeh066U1imadwSt9hyI1wSA/LHr1NOz F9Cw6tBud3/nG8jvWWdI3yuMw9dS7ylsyUJouRPBpaZMQ/HpwGASQZf7lhWypnxPn39IfvT0cI3rh024kb2OFDNl9VD1DP3 3OV6Kd9DnHvFsqA17kykB42FS4k/hysVbL70wTO2Vr5eNZRS9e1ThWT95YsHlLsZQoF7710tF9or/1DJs80rnDGl8rYJEml ZviAyOMaXQQIwBBur7uXEGQ/O13G4lhqW4qorjnUE69PwMubYZtDWfaK9YDwtN/0TifDm4UoFSaz+9xuf1cf0BBCa3AjM2p D8leVIFwQoaH3tJD6Lnz80fwtUx7kdczpFX4prRytN4X1Y2ZoUfV9rC4nE9lduE2LPoVe6FLHrbHGIhaAQOoMYW9ir8ljbB rU+esxjMiqUB/iUZBBI5+yFL6ggXWELf4py2ygYM10kYDQ6nNaqwLLurWhhmIAldTHfZm7+34K4sK0Bg4LXua7ZL2kexSW+ y6zJDC9wg+EHfGX96lNSpPh99bttnJ/EXh/Sh9pitMC/o9XfwqAf7OScpntOtxjRY7/aKPNCglS91QDyMcdGpVno7luE+13 XJion1WFr4cJFg1IiXEWhjwN1kF5nvqL6CcZpmXT8qgpHbP32O6MvOhuQ72+saNU0wEMPuOAZdfWaPrvP5ybemY1s5Q3OhL Ay19CnuRC3o/4kXAnr3DFJA+x+DCjRxgxeN6dmRjHgY6NqRZVd0G1kR8Q9+Y5iJ1cicbeHkyQlhT3Df77AxlCqR9tPjRDzn QKr2vdX42nlCMw7EG8uFHpXfwTI/qL4VYDkiAm9KOdTzzkEQ32d3b777DfLCuC1E0510ECWRLbpqaWnUvJvfeYsYENerNIA GdmaKKciIKw9mCf0Y3ywIgBz9Gvr398s6QZLmw1GPd0+jhWcFYMkQULMETOVGpLJOYe4U7lrVLCUFg24dzB25ZJwuaaGsWi mi0sFqCwJX30axKzxJjVCg/diR36sceCx/aJDOnyOGym3oMBNhtrOEeSdYZ9CMiAf8Ud4crD7myDIkCCyFFCel8n+0AzEou 6tze1cPUnKhw2EtFy/HwO9uz2w8Z8AJhEX9pCSwR3dZE9fgBnkfScsbMiFb+RpYy3IcPvhYDBUn40dFXHxigenqzLuIZETZ QvKme7OJhPuT9C7sky/wTllxqp4lD6CAMhoKaSdM+IJyDt3M5o5ufzuEcU8I22GTBcur98kcfAmwdJsLiMUZRXz8aORUXs1 A7IuNA0U2MflvaXS1urzseJj8XtY6umcEJ1hFGUFFNHLKKRSHGKBXSRVGSVRSZkrfiT2uP5F0WpOWqbV+qZk2CXU0nwLRnU 8RiY2mTw44SuI5X2wcc2WX7Lwh6d1bXXc7SnJrdNzY6voEEkskfmeJSl6wk2b5swghn1GAkUk0RLA8rlZGy50kHMhqhx80L 4Bkcvxvgd5umhTGZTjin7mWc7qI/M5ePZdjvhc0wW0MD/G+nmXfWTu5i7T5MPXOKwwgkSCRE3Im8wISNk8ZxOPrdbqzALpe 76tBaN71Zq1Azv50wDPRs3ncZBl/iAQw5jHPfqTrfgcybtZbD7hQ/AIatILj+2Pr6jJ2mbUJqtKzUN8OGCFn7C9aStcLzhe /fAU9Yquw1IgRa6BdhuUciT6r/TMaVCSrdrG8JhCZ8k8xGEHBWHYwofHWLc2uop0IKOe1fJD1WmHeNDc78totRfSewx6MSz xdci4b2HZzcfh2W7K0s15ot6UlSBLdMBs5Tb5X8reEJKMVpak3XjCotelm4nwaFMBUc9MuuJKdYMy+CBCy3FUqB6RWtcRbv o8MeJp/OHrdznNlsJR2O376vUuDtztAgGxZzKMNmQEEsEdrYIrM0PCEfRzWwG9EEdXu1kTiMdyqzg+8y30/VOLf6GoxyHUG Yms7JnxnuxUjj3SfwgdqjCli9DclnatPqMMXCFBJJIEhEWkx7Kj25L49ZsPzatpULaAgxe8n+JfDB4qIQiH6G46X9Llo6sq fEB4X9cXi0vU8dqPm4F013rRuZY3fxYP+X3UY9JIXLxxvTGu8n/k6LS70g7krmhSr9qCEmNTMQ74pa2kQ6LAOccz/EjR1tI E6f68A1wNnyTw56nyvPBTMzaYFH9IPEU4CQGvIj0d1FUL7b+zu9ehFWhr8hpWjpJqygcimVjbwCEp8dDMi3vdiD3FlRwyu+ XBLTYbwDgisPTN0xC+UymmS7g7o2RtsnI5UUnS0ZIwvYfcYCfTLoEfso1r9Sc4ipMhBHuyh1fyfI8KcLav/9W7t2B+nHXpk yQ7gEzxe9lIFQo6kqaZZr6nqz2YRYAWKeEJ+u1sOKuBsJFSunspbEEXrj7l8k1TjXDe2Y9nbo85eK9qDDJ+xgBDuVPQ0xLC YntD42d0D13IHWW/kJ191Kle7s1jM2V6VVatvoyRByHGZFfAfdMFYlRHc/TLWr1E7kmz61OjMXv1NvwUgsocZBwxutw/eDh wW0L4Kc9X0BLQW/Kube/w6h1Og0zEjme6CMI4EdQxKXjQDHZftz20Kl3e+D/KMtVIebHPy0fB2H6aZ7IPPQGjVhQQ43iUSh lMke42AmZ8fgSTKe7EcV8yasDqIzp4n57sgpX3slFRvpLnS5gY2/i99sBE82p0LMGwyAtZC7fzt1nuMmEKioJgjgiMAr0TZ M7bRaZU2EV0d+En00+H57UWdG+vcvBsXzzUlSedf2wmt7J2nxU8E3ojyd53Qb1BbkjRvrQ5lmj/MQ3wj0Zoi2PtINZaZNTr kzaYtq13QY5/f0vtPsgg4yFNtGXkDDbY6W2eJRvzHvCyN8CJLhZZ9tlCngvsuDLStVn7RTCef0d3PLqmlgnO5s0J5J8pWLV OXT9mG4yPfz2jiL6j1B2u7e3Fa0AbInVHSkAqVxooHLwv1y3aRq6RG9Azu3fvZuAptyFTRugNEQp4tCaoHdlHUUHySQcN6m o95ns1RebzmzQUNh0rHEZnIdAoJcpTUM48Z71xuBwdSTUKTr7M9ovZYGgl6xe0u3/FBe0VoXkQMqZBHsHPSbXN0MbrymuFN d6/cXp5UnqPaJMv4GmTAzeCXNa33L9W5BCAx+NkFXvqqdwboIFY9uUFnMomz0hIAAk48UWILvjijz/OcHpVC3+G/eTyz5v8 unyFQ1z8Up0vf+cTi6BmEYM00pXx2z8+kRXiG0daZZWH1gxNDnjEyD6IR1OUc7keVCwwm0c1xVIJPU6vDYAsaVdinu+nfbL WDoLKRiqrgbMQMXWmXlWB6DGpu2+D7+bTb6Y+SjqYff0ozqogZaozwCoYeaVdcYO8z/zRY4XnrZW7ldgN8V50ApesdhCfnu A9KL7rZBUPKclCmK+Yuwsh6XCzTpDVH82Z8mW5EbfB4poj/s4vBSff+nA5q0fUr5P2Peg0zh3bt6n4W3hoPUFX1Y68N+wJ+ tZMPhltIVv+VOzYJZeb8mPJ13SrhLbYFJM7Vw5vDaip1TIRbTobInoTfRufGYWLvKI5SFNS9EtXUM5EqqPfG4/uorquQ3Lg PqAx0xE6yctbs4v2Hjv0HBlrLnj6BqAvDj0ekAVVnx3Dl3m91BcJ5Si6zHTF3hIvb/+pIse7l7Ttth9ArkPNzUhixhl4rmJ R2OYCH9tKmXFChQzFJ4e0ckBvElQBrMoDejoq+OBaHhKDsr7VacCnWI/dtICXNH69JdxtOZOJ/iA9T9arYgF+MJ5285IUEP 9FXmmNM7kaT+6CzcjaU9JoucsNJIQShBGMespifZszGsDbcmGJk1/fBtpR110ClzEqtGvq+CvA0P4ZpVvWK3CpzRYw2TPaa Zz0+Qrz0i8Z1F2Q8rj/958HwslbSGVwXWlEByiR51Q43nkTpkiWF6RNUq3NEhTnJ1RXu0tbKpuYjDElfopTHIuoL1q5xh3V UJQ90HQWl/YvWEsJfpQfqwCh42gQ9CSjiq7t+csP7RyvBAPO0DRcY05tw4uloPn9tAwaRbDyrcomcGIdiCh8SFzStYmVc3u W4UPK8VWjOKYZmEMnd2UfoYnD8Go2nsnIyyVA1FxrJUBbWZl61W+jIWN2xnOUi6UYABLHH7UmOtZ2a7uDcqOJAmpuoDUY5Q dtkRjX+Ks2U2a3vAsy/lFuWnYn9ZK4pUXxuWE/Vp4yoVBjPwhBmVdlRql0vGAHpVWZmvhLO4O8Z2wrT8aZFVeWVozKxS6l9 oagzomJc1nYGLEBsmOo/VGf3aB9s+T4imsGSUU0MkegY4jZLi6uaHAz3ZPxWYAg6RRn2XaSKDiAxQ/[place]/sKR9eDePbwqzM FlYybwRtk2YGQDZlBU4aG737YmqHTbXxeXAgDd9ebIyLj4giX7i6PjxctrfeGGt8Dr07THFXcO8u5q4C2StB7oeHZiPz8rI 8Ly2Wu75fGT20iVnxj1ZDj/rjOQOKAOol+Ebw82zSrLfyqZo9VhzzW27mdweI9PfJT3yGBOOBBOUznmazCg0iYVLR2dj837 M5x2ZxXPk4PmwbpIdIWYaQYysKWYxowuwdfJVvGMHsQSD7etH5eyVOUnpUjREWRPE0AmIEQIVHKxUsalgT4s9nhn3+L6Gs+ nNyFG5tPEVQWHLRShwT9j+fa8l9Mmua8JSYGAZHJHvxtbUIXZXUUNQolclV/FkTmxTYijsEN1Jd3RKVGJTOWTlAG7zvgEXK JQZWytejRwnwtESUIGICgkyeEqrnrMRBErqeCLTHJTECIINZAGpSIaxfKx7YribQShHXSZEVYWIVPLGOYOJQXKAQPEKBFpm [file] nvvRPDUCRILTCZdIwbgqHCSMXRWLBFTSJL7dJITPxpxjI+lFFFABRRRQAGiiigAxRRRQAUUUGgAooooAKKOlBoAKDRijpQA LZATAJZmcoIJGEBTEfnufKditEHG9okidUTELFUEYAKEZGYKfWTZVYWVGRBOF2vJNZUnTlaBalhzAUGQUNMPWIJfMIBSUNX DFDVVREZ2psxSNXRKCNDL2kqyPVKCZIZybpzJflTJFMFNQ0AzFK8/XrL/uSeGpKyNu1Eoq3G5I97kTXwSqU6QaWgubgL9to ZLxMXEOhQaPBvTSC2IopqiAorfM1hyHIUiHWYyaeqPHTtyngI7ZAWyuFddWLezj3IUzZNQ4A/h/S69eoF45N0xzoa00hEW7 jKskjCGZjKX+lG21W6JcwGKUwwPNzi8F7+1zel/cCrf4TqiHo4kaenjw+2c0ITrt4kzflom1lWUDCZD8SzOr478DoAtLj79 zHzRYLTt8FhvRNSRR8F4BbJ56g68m38nDsKfQmG+amAe3XXhhFMhlG9tgdNgHiPqKWjqYbknznGTSVhrArDDnZmQ06M9syf iaHOEOU5wqGwOxIOXQPoaRUgoMPHb3dh7F63Q1Of0mdDGsg6SddIjaKxCSOOQ4i1JxcgOXxK197A14AIBtX7o7FVC5nYBy8 CGXkwfXeVssszvlGbryEWOHFP2fTOoQ4zKrD1VHMp0TNuDru09FPd2fFOIMduAoxp1qiGKzjU274P/+oWKUdAo1V jRRk3C8y55W6oCAQj8B08bXzFxEhtulzspXzIlYw7OmM7H7ua1UOhTzDlhO7A0QZySnOpgFflQKQPUE9H70H60+4pw8i8MJ D4xlpfEOU5POm+hHGddm3MYuvgDD7JomSimp1Ghj14JEUp0FbSzmagX0bCAdLCnzvysxbm51NHjoxKBEFBsijIJVHLiAieZ tUPfTHkC0zfweZ4wGwpZagF5VjsyXoAT3GQB1QaQHXcCTMf/8WBOq1gpN42A/LvEG5dyt8AUHhIg5cRZEEl7nsc1qKwRQKx 9KAPPLLSNWW+pOE5k5UbJkwItoKSkpbHLNeewrXV+KVhAbjcHmJoLGNbeMb9Gd1m6i63hOllVMTmM7JOal6SM+uDXVYx/junior programmer analyst CptOgknV7xhb6WfszufZFxUk9byUneqRhZd1fpMLNtxk8p30DSooJ2y2G7nWMK7wrOP5b7op1swmJksbGKFDJNVcnVqOIkN Ty8Ls5BSoKm6k/5voFb4LuI8nTyXoemTqs6mc/Gclv7MsUvRDXnjX+XxkRAqR7L651VqUufyCT7ZEuU6oj4larcHZEr5APy 5kmfvwD15mBZ2Mxb49/saIFN4E+1bK2OA7fGaubo8lpqwIhRA0IZU0SLoDd0sncsgQbQ7RT9QYqCy8g2+o9Ftc90X3GzTe6 zYYqeVaYS4lEcHzua8LzvpVZGNi04r5vSLFGrJ3Dj2iYkP0H+12UsI0/y4jRT5js+2iwKpm78hG/Vd887RENBOqUvoHmKNF F9U6zt3hRAuVMaBVUBeWiA/Myvgm93hSJ5447AOvZHleLOHpROWM2GQypJxX8FGjJnQNEuHHAYKCCWOH2F5nT691gY0L5Bg Sd1lMJ7c8o+8uxqvjLoaQaORUDXLACPqgCUnxf8Tw+HtV/yszWSn3o5BRpI4s1rrckRnYWW6ATVJjyQ+GKE8MZ59QxTEMKf C9SkoH26ur81M3bDoX9Lh0/vXPvZd7pmf5jMFJkjTACMwyPJBmlkd2r2ZbU3i9TOsm5RcyAbGEMqDJKMcq8LU/ZgeSbs2EI 17ghKNwwc622XS73UigI/SwYQiz/nXw21CXV2QxcdnBLPkbG37JOtRdkm+pTny7+ey3/bs5eHHvIVzmlQa53AffzKJQL7bm j556JeXbq1Mv2d9tmq2wGADdox+TFiATboPaQH5567ZOWrVfpbVvTynXqWTFhawYJQV7LQuOZQzpMgVrfYYv9Cn0Y9dSQLE 0XEPLDSNEGWZLJl1mY9gIIfKSOKOJwhagmCtrsyQBURVSEGOXTFGXDiFZEDIRKCYHZs6JXLRVVVCMLIIYSVABUSJWuRnJLD QWZeQJCIloq0AEIOSHGYZOMTPOXAtYhBHrjGGAQQsTHB5SUCBvDYZZPQVhJhdmyZvCpcqiXafobLVGEKDDART4pzZHHSZIH SDVHVTEKZPHL3IEmPRElQWGKRTQDVfdNYeTYEAZUXYqbJdaqsXZEBITArbcrAmfMKABYAVDYKGVJLLJROMEAAYrtYjupoNQ [file] ooooAKKACiiigAooooAKBARTLETT REGIONAL HOSPITALCiiigAooooAALASKA NATIVE MEDICAL CENTERACiiigAcharron maternity hospitalAKBARTLETT REGIONAL HOSPITALCiiigAooooAAL[facility] MEDICAL CENTERACiiiNovant Health [facility] CenterCiiig OzuovRNGPJGBfurbUecuuEZAIXVZbsyyGaktxYMVVHKYvuewQfwruZVLQLIKzg0L9qkYykDe9MYN3XW6ZJpHnAHJq9FwyP7 N43b1gqATE56rLs44G/Uaw2wKKJMFtmvep2nfvpLSMXZURL4aJFwCDALvfA07ABqpe0DXX3xk4NeAq9aZUzPQqkwzatNL7w b+NlLaw1CzJorts0J7XM9H12tj0KeZzsAhlKx7MRPlrdiWqKZrrPYu2WC5k4P08YZU04m1qH82gt9CwiSBCaLhFsI2pm8Md dpVkI5b3Lb0K7KKVjGwkVi1ZHUJahtS7gKPan5swaGEYKytzFQTZ9I5Pz1Kuqsiy5qZr6nlbSpK0OpC0NBQb8A0Q7B6ypki Wpmk2oycW9rji/zBZNfloYhnQyO9Vg50nFqcgDR01nxUhX0NvWqmbxjhQP7jm0bWPgR8u20NfDdO1mBBShtdA4hqEaJjORj rrWl0vh3R7Hp8kwAuYK8IlhkuWdFnvyIbv1FhzPQldFkEY0fwei3H3UUAFRj1C6Xfyb9xpq/hJQNII33llvs2fjpqNwYAKq JY8KvRa0z9RxAB6QlVPmRyyWtXc0cRm+Nf0vN5cbm0wms0HmthXo9l6fMQZ+O9MqiVezOFtajHzmLF/TSDVH0jtNMOGlbnF cpl2Q5O2+y+RZBPslgdNh/bTjjftdE25/oPj19amqDSdVw4lXbkxQ8rNhutQEbFknTg7Yk+0kWbHtzf7BoIutYn2T8cVji+ v3bsbPNR9x7gmlIPbLYiShSsuJOerourAyMHB0KQdFThPp4Fg2Un1K3dTLcGDHJv8qgOiRO0InEDhRTYPpk48AoBo6a0W4L 7S3X2BOMRxlmUjpYn2jIn7p6AvQkujTQtzpKi+OBBc8kjd/Z3+mLc/g9KNGaZpWqMYhuuKulURd+rLML8TZ7R6XeQcnG5Yw +o2Wig7yNuD6fYgZzVBeX7hPNcXKEmG4Pb335n0i01m1uhpCqqdhdmdRQuRtTCueXtTM68dqPjHArV3UEvO5wlZMzKi0cwo N81Y7NY3Hjov5IHBxKVs6wtpeWX1ysK129vNrV5s+MNC9FXSwFFFoT9reCvtCvvpSK6LZxSPzeLbaBtJnT5cN9/Y7U7jyn/ ZeIb+KOaqGxV7bQo63PruKkyBT9ZUD6jCWIs1jD3Ojf1vc+n39/MoamfaKeqT3PJjFpkRkCcIQaUiB9z1l+RvW4tDU82Dj6 SUS09rxfRQU1wVJmFwfGXCbjR92t2SLGvPFEt8Bvp0c155SqcShThlUhljs3aUsxGNHTBW58u98S5dI3VnLpq4c+ta1dR+b ofSAF5lYuL/TQeIrLni0T2FA5cxAUvq47+ZjM2i0I5hwgICstKtoqVrAZ5gK6wkG7Wj0sHFZElyVdCk4V6SexQb3Yk2nzLn 7MFGECtjxHnPy7odPtSIIqCnObJNAdfi8Ib9ef27vFNmHUa5IfkotcHVa2PQWui0JCWPy/RIBGG6j3aywH39r35RYslT1cb jT/z1Dhq8pVS2Q7fnTqbVAp0ouEpsHYKnPA82e4BwQQYW23Nma1dV9BTBYLQOVBLFINZZMWQKFKNATREHJZFBUJGXAZUAJS FFABRRRQBmat9+A7Df61gnp9+L6Gs/WHQDWDaQyOFJAEX9ihLVVoPSJ05bZdfhajMOwIeC04fMc2R52yCGNrxppW2OsPfW/ wCg7Z/9/lo/4TLTP+g7Z/1Pt6xFBpcquY6PgEiZ/gOy5pv6/loPjLTP+g5Z/sYp9bXBytwnD+Ey0z/oO2n/AH+Wg+MtM/6D tn/3+ZdRb8W3I/hMtM/6Dln/AN/mgQjIPQ1CuULo/i3iJAeeodY+Ex0z/oO2f/h5bV4HwQsW/wCg5Z/9/loA6+iuQPjLTP8 AoO2f/f5aP+Ey0z/oOWn/AH+LiQx6U1R/JPVACR2NwT8n/f5aP+Ey0z/oO2n/AH+MmJo9O0Q/CYPBHK4ShH7j/f5aP+Ey0z /oO2f/AH+YrHm2X0T/GTCODQ0EgH7f/f5aP+Ey0z/oOWf/AH+RmCx3M3G/GXJLEG1AbZSq/f5aP+Ey0z/oO2f/AH+WgDr6K 5D/UHZIZD4DfHMd/f5aP+Ey0z/oOWf/AH+AjCg8T8K/NWJFKI1GiM9d/f5aP+Ey0z/oO2n/AH+KsEu9A4D/ASQOJL6LfK7j /f5aP+Ey0z/oOWf/AH+XwYn8X1J/VCVEYO1LlF0h/f5aP+Ey0z/oO2f/AH+FxHu9A9X+MtM/6Dtp/wB/lo/4TLTP+g5af9/ loA6+iuQ/4TLTP+q2bc7Cx2jM+Ey0z/oOWn/s7mUIdlwaD+Ey0z/oO2f/AH+Wj/hMtM/6Dtn/AN/loA6+iuQ/4TLTP+g7Z/ 8Af5aP+Ey0z/oO2n/f1nNGstqbI+Ey0z/oOWf/AH+Wj/hMtM/6Dln/AN/loA6+iuQ/4TLTP+g5Z/8Af5aP+Ey0z/dR7q9S4 +XvRx4I0U+MtM/6Dln/AN/lo/4TLTP+g7Z/9/loA6+iuQ/4TLTP+g7Z/wDf5aP+Ey0z/oO2f/r0zNJdbcbQ+Ey0z/oO2f8A 3+Wg+MtM/wCg5Z/9/loA6+iuQ/4TLTP+g7Z/9/lo/wCEy0z/AKDtn/3+OeNf4K1E/hMtM/6Dtn/3+Wj/MJTKHR0MsGPu/f5 aAOvorkP+Ey0z/oO2f/b3zV9f5b/oO2f/AH+SfCh8R6E/IPXTNQ4OmZ5c/f5aP+Ey0z/oOWf/AH+VtFu0E8R+MtM/6Dln/w B/lo/4TLTP+g7Z/gHc1fDUounmS+Ey0z/oO2f/AH+Wj/hMtM/6Dtp/3+JeOx1K3O/hMtM/6Dtn/wB/lo/4TLTP+g7af9/lo A6+iuQ/4TLTP+g7Z/8Af5aP+Ey0z/qUUm6L5+AvRq5O1O/hMtM/6Dtp/wB/lo/4TLTP+g7Z/uIv0fYZcysrY+Ey0z/oO2f/ AH+Wj/hMtM/6Dtp/3+UzIm3I6G/hMtM/6Dtn/wB/loPjLTP+g7Z/9/loA6+iuQ/4TLTP+g5af9/lo/4TLTP+g7Z/9/loA6+ iuQ/4TLTP+g5Z/wDf5aP+Ey0z/oOWf/g5zLOchnpH+Ey0z/oO2n/f5aP+Ey0z/oO2f/h8jSSelbzA+Ey0z/tADp1L7+Wj/h MtM/6Dtn/3+YnJd8E1X/hMtM/6Dln/AN/lo/4TLTP+g7Z/9/loA6+iuQ/4TLTP+g7Z/wDf5aP+Ey0z/oO2f/u1uJDyiucE+ Ey0z/hE4x6O9+Wj/hMtM/6Dtn/3+YmYq7V6U+MtM/6Dtp/3+Wj/BPMDOO8WdE9z/v2pBCebyuB+Ey0z/oO2f/i3hN9PxTvK /wCg5Z/9/loA6+jFch/iwWnq2V8b/wC/u5f5Qona/Qcs/xXf7uGBU3XoG/CZaZ/0HbP/AL/WYgDVkf1OYjj/+/w8PgzXWZd 8Jlpn/QdtP+/o3m6VGGhW/wBB2z/7/BAJ70Wnu/sgOgw0I5k/AO/n3l0LMZvL/wBB2z/7/WTI80Lmd/aoPbp5M21/7/LR/w AJlpn/AEHLP/u5bTXQ4DuP/CZaZ/4XtG1L5/LR/wAJlpn/AEHbP/v7uDGR2NvT/CZaZ/2ZMJ0V1/LR/wAJlpn/AEHbP/v8t FEP0DrV/CZaZ/3ViO1S3/LR/wAJlpn/AEHbP/m3nEIA5DaY/CZaZ/5LeV6H2/LR/wAJlpn/AEHbP/e6fRJD6UnZ/CZaZ/0H b/LR/wAJlpn/AEHLP/z3tQSE9FmB/CZaZ/0HbT/v8tH/YJoLpx5KTcm/+/n6CiuEJLNfirx/AEHbT/v8tH/CZaZ/0HL P/x9LJMI17Vze/wAJlpn/AEHbP/q6eM3CaT/0HLP/AL/VKQ92Lyc/xjTur1F66/7/EI2q0Uldn/XwzD6Gw6dWBE0YwH/CZa Z/0HLP/v8ALR/ljXxw6G4d/wC/u3WppFXGm0Zkfr/Qcs/+/wAtH/CZaZ/0HbP/AL/SNI05Brb/coApz1A7m/7/HJ1a5Fneb /Qcs/4Vv7vXSC0UjP/CZaZ/0HLP/v8ALR/geHdt8Zqv/wC/60Abmrffi+msTtK08j75RD9nbqAMd0TgVY976cQZDSWrKTIL UiVkWxDJQOEl5K4JWKGEHc+KDR6B3pHZRK5I+VGPp+SHQKJk1lcKf1xsUCYTL+n5UY9h+JHEXDq1D1SY+k9DZQDL1C6qIb/ KjuwHz2Zoqb2OdariLZZm+VGMdh+POMUYx2Z7nLeA8fWSWGZRUkyTy6tvKUTGU+a5CzbWvwzoCFyu/Ua6sbaalLGfH2kTwv /VvdeOj8Isoz8L7lPRTU4H+VU7gfRTFQvmYai/B8zSDJPPgTfuuLDpbDCNLJ+q1YO0N8vZFYQ1S+VGPp+VFFABjHp+VGPYf xRVFAKqW1rBR7D9VIYBW0F0qDCEIphMTESwoHot/DbaNVABD7Y3jTcD1JTGBTQtYUyW6GXYVICb+VGPp+VFFABgDsPyoI+n 5UUUAGPp+XRYcUzoqcFPhP7TmvHmqtyCWeP8JljGmdwjGLlh/Ezv6kwQAAMarGtmf5CtnzyXGnG7HF0j+VFFAB+A/KjHsPy rzbSBKWjrSy8V1fRZFR7G+EM1S6wITUW6euo/AflRRQAY+n5UY+d0YDGWTDs+VGPp+VFFAB+A/Wac9cyVBRWpgDywFnngcn AXH0/Yhy9Z0QPITEPc+VB+g/RcwoXc1FoeV0L1MJKQQAk+YNBQcvFPDHF4t+VGPp+YTFRQd2B5IY5i+OLSHKapGLs5yBZQN Y+m1FnpMpmniKRtH1nL9P+HPSYU18O4oPzA4TJJGGHy6UUpW6eMMKQn0unY+A/KiigA/FqjX61T3hEYMDKxLwb/AflRRQAY +n5UY9h+JIAMEb6M3QgdIpamnCCuu/KjHsPyoooACPp+RD0C0dTMBY9V+XX7W6mKAJJY1/KjH+cUUUAFGaKKACkNFFAH/9k = Orders Orders: 3. RENEE (obstructive sleep apnea) G47.33 Plan - Derrick Morales DO The patient has been adamant that he is not interested in pursuing workup and/or treatment for his previously identified obstructive sleep apnea. 4. Coronary artery disease involving [place] coronary artery of [place] heart with unstable angina pectoris I25.110 Plan - Derrick Morales DO Continue current medical management and follow-up with cardiology as scheduled. Orders Orders: 5. Nicotine dependence, cigarettes, in remission F17.211 Plan - Derrick Morales DO Ongoing tobacco cessation strongly encouraged. Plan Detail Follow Up 6 Months (DMB) 10/07/18 1054 <Electronically signed by Derrick Morales DO> Date Derrick Morales DO cc: Crow Serrato * Signed Assessment AND Plan 1. SOB (shortness of breath) R06.02 Plan The patient's most recent pulmonary function studies indicated the presence of restrictive lung mechanics with a proportionate reduction in diffusing capacity. My concern is that the patient could have an underlying pulmonary vascular disorder such as pulmonary hypertension. It is unclear to me as to when the patient's last surface echocardiogram was completed. The differential for the patient's exertional shortness of breath is likely to include the aforementioned, along with generalized deconditioning, possible diaphragmatic dysfunction and uncontrolled hypertension. I do not feel that the patient needs to utilize any inhalers, as he did not have evidence of COPD, nor evidence of a bronchodilator response noted on his PFTs. In addition, he has never received any symptomatic benefit from their use. I will have the patient sign a medical release form so that we can obtain his SNIFF test results. Regardless, even if the patient does have a component of diaphragmatic dysfunction, there would be no indication for any form of treatment. I am going to proceed with obtaining a surface echocardiogram to evaluate for the presence of any pulmonary hypertension. 2. Lung nodule R91.1 Plan The patient previously had a evidence of a [address] scan, which was then followed up by a PET scan in September 2018. The patient's PET examination was negative. Based upon the Fle[employer] recommendations, I would recommend continued imaging surveillance of the patient's lung nodule with repeat CT chest in approximately 3-6 months. [id number],[facility];//4AAQSkZJRgABAQEAYABgAAD/9ILhYImpBfBMGN9QThLQGZhNTXL8THPJQRLTQIGHFfkcMWIDFLNIKNM VHsmzXLMNDYIAEXNKoqufBAaOKHlPVGJNTrKASYXe9fXPSPwEZPDWVEUXHZETRUUJBJBBJKOAMWXPFIIYXWJNLELKMLPPDR AAAAAAAAAAAAAAAAAAAAAAAAAAAAAAAAAAAAAAAAAAAAAAAAAAAAAAAAAAAAAAAAAAAAAAAAAAAAAAAAAAAAAAAAAAAAAAA AAAAAAAAAAAAAAAAAAAAAAAAAAAAAAAAAAAAAAAAAAAAAAAAAAAAAAAAAAAAAAAAAAAAAAAAAAAAAAAAAAAAAAAAAAAAAAA AAAAAAAAAAAAAAAAAAAAAAAAAAAAAAAAAAAAAAAAAAAAAAAAAAAAAAAAAAAAAAAAAAAAAAAAAAAAAAAAAAAAAAAAAAAAAAA AAAAAAAAAAAAAAAAAAAAAAAAAAAAAAAAAAAAAAAAAAAAAAAAAAAAAAAAAAAAAAAAAAAAAAAAAAAAAAAAAAAAAAAAAAAAAAA AAAAAAAAAAAAAAAAAAAAAAAAAAAAAAAAAAAAAAAAAAAAAAAAAAAAAAAAAAAAAAAAAAAAAAAAAAAAAAAAAAAAAAAAAAAAAAA AAAAAAAAAAAAAAAAAAAAAAAAAAAAAAAAAAAAAAAAAAAAAAAAAAAAAAAAAAAAAAAAAAAAAAAAAAAAAAAAAAAAAAAAAAAAAAA AAAAAAAAAAAAAAAAAAAAAAAAAAAAAAAAAAAAAAAAAAAAAAAAAAAAAAAAAAAAAAAAAAAAAAAAAAAAAAAAAAAAAAAAAAAAAAA AAAAAAAAAAAAAAAAAAAAAAAAAAAAAAAAAAAAAAAAAAAAAAAAAAAAAAAAAAAAAAAAAAAAAAAAAAAAAAAAAAAAAAAAAAAAAAA AAAAAAAAAAAAAAAAAAAAAAAAAAAAAAAAAAAAAAAAAAAAAAAAAAAAAAAAAAAAAAAAAAAAAAAAAAAAAAAAAAAAAAAAAAAAAAA AAAAAAAAAAAAAAAAAAAAAAAAAAAAAAAAAAAAAAAAAAAAAAAAAAAAAAAAAAAAAAAAAAAAAAAAAAAAAAAAAAAAAAAAAAAAAAA AAAAAAAAAAAAAAAAAAAAAAAAAAAAAAAAAAAAAAAAAAAAAAAAAAAAAAAAAAAAAAAAAAAAAAAAAAAAAAAAAAAAAAAAAAAAAAA AAAAAAAAAAAAAAAAAAAAAAAAAAAAAAAAAAAAAAAAAAAAAAAAAAAAAAAAAAAAAAAAAAAAAAAAAAAAAAAAAAAAAAAAAAAAAAA AAAAAAAAAAAAAAAAAAAAAAAAAAAAAAAAAAAAAAAAAAAAAAAAAAAAAAAAAAAAAAAAAAAAAAAAAAAAAAAAAAAAAAAAAAAAAAA AAAAAAAAAAAAAAAAAAAAAAAAAAAAAAAAAAAAAAAAAAAAAAAAAAAAAAAAAAAAAAAAAAAAAAAAAAAAAAAAAAAAAAAAAAAAAAA AAAAAAAAAAAAAAAAAAAAAAAAAAAAAAAAAAAAAAAAAAAAAAAAAAAAAAAAAAAAAAAAAAAAAAAAAAAAAAAAAAAAAAAAAAAAAAA AAAAAAAAAAAAAAAAAAAAAAAAAAAAAAAAAAAAAAAAAAAAAAAAAAAAAAAAAAAAAAAAAAAAAAAAAAAAAAAAAAAAAAAAAAAAAAA AAAAAAAAAAAAAAAAAAAAAAAAAAAAAAAAAAAAAAAAAAAAAAAAAAAAAAAAAAAAAAAAAAAAAAAAAAAAAAAAAAAAAAAAAAAAAAA AAAAAAAAAAAAAAAAAAAAAAAAAAAAAAAAAAAAAAAAAAAAAAAAAAAAAAAAAAAAAAAAAAAAAAAAAAAAAAAAAAAAAAAAAAAAAAA AAAAAAAAAAAAAAAAAAAAAAAAAAAAAAAAAAAAAAAAAAAAAAAAAAAAAAAAAAAAAAAAAAAAAAAAAAAAAAAAAAAAAAAAAAAAAAA AAAAAAAAAAAAAAAAAAAAAAAAAAAAAAAAAAAAAAAAAAAAAAAAAAAAAAAAAAAAAAAAAAAAAAAAAAAAAAAAAAAAAAAAAAAAAAA AAAAAAAAAAAAAAAAAAAAAAAAAAAAAAAAAAAAAAAAAAAAAAAAAAAAAAAAAAAAAAAAAAAAAAAAAAAAAAAAAAAAAAAAAAAAAAA AAAAAAAAAAAAAAAAAAAAAAAAAAAAAAAAAAAAAAAAAAAAAAAAAAAAAAAAAAAAAAAAAAAAAAAAAAAAAAAAAAAAAAAAAAAAAAA AAAAAAAAAAAAAAAAAAAAAAAAAAAAAAAAAAAAAAAAAAAAAAAAAAAAAAAAAAAAAAAAAAAAAAAAAAAAAAAAAAAAAAAAAAAAAAA AAAAAAAAAAAAAAAAAAAAAAAAAAAAAAAAAAAAAAAAAAAAAAAAAAAAAAAAAAAAAAAAAAAAAAAAAAAAAAAAAAAAAAAAAAAAAAA AAAAAAAAAAAAAAAAAAAAAAAAAAAAAAAAAAAAAAAAAAAAAAAAAAAAAAAAAAAAAAAAAAAAAAAAAAAAAAAAAAAAAAAAAAAAAAA AAAAAAAAAAAAAAAAAAAAAAAAAAAAAAAAAAAAAAAAAAAAAAAAAAAAAAAAAAAAAAAAAAAAAAAAAAAAAAAAAAAAAAAAAAAAAAA AAAAAAAAAAAAAAAAAAAAAAAAAAAAAAAAAAAAAAAAAAAAAAAAAAAAAAAAAAAAAAAAAAAAAAAAAAAAAAAAAAAAAAAAAAAAAAA AAAAAAAAAAAAAAAAAAAAAAAAAAAAAAAAAAAAAAAAAAAAAAAAAAAAAAAAAAAAAAAAAAAAAAAAAAAAAAAAAAAAAAAAAAAAAAA YMQBOAQTJFPJHTRLQWLDMTRFVNTBENZQQbAYtgyI4tiBF9BBBDjAUAIcGSSYLTHJUrwVKTTbSWGWMHMAU5akOAWmKKYOOtL VPXwzEIXsUIWLZfLXOQ7vnBZdEZXEqZTRfAUVEFBZcfDAGTEHUGSZOIZAECXMVUTSLGEETBGGQQRUPNAJGNUASTLCTNLHOT AAAAAAAAAAAAAAAAAAAAAAAAAAAAAAAAAAAAAAAAAAAAAAAAAAAAAAAAAAAAAAAAAAAAAAAAAAAAAAAAAAAAAAAAAAAAAAA AAAAAAAAAAAAAAAAAAAAAAAAAAAAAAAAAAAAAAAAAAAAAAAAAAAAAAAAAAAAAAAAAAAAAAAAAAAAAAAAAAAAAAAAAAAAAAA AAAAAAAAAAAAAAAAAAAAAAAAAAAAAAAAAAAAAAAAAAAAAAAAAAAAAAAAAAAAAAAAAAAAAAAAAAAAAAAAAAAAAAAAAAAAAAA AAAAAAAAAAAAAAAAAAAAAAAAAAAAAAAAAAAAAAAAAAAAAAAAAAAAAAAAAAAAAAAAAAAAAAAAAAAAAAAAAAAAAAAAAAAAAAA AAAAAAAAAAAAAAAAAAAAAAAAAAAAAAAAAAAAAAAAAAAAAAAAAAAAAAAAAAAAAAAAAAAAAAAAAAAAAAAAAAAAAAAAAAAAAAA AAAAAAAAAAAAAAAAAAAAAAAAAAAAAAAAAAAAAAAAAAAAAAAAAAAAAAAAAAAAAAAAAAAAAAAAAAAAAAAAAAAAAAAAAAAAAAA AAAAAAAAAAAAAAAAAAAAAAAAAAAAAAAAAAAAAAAAAAAAAAAAAAAAAAAAAAAAAAAAAAAAAAAAAAAAAAAAAAAAAAAAAAAAAAA AAAAAAAAAAAAAAAAAAAAAAAAAAAAAAAAAAAAAAAAAAAAAAAAAAAAAAAAAAAAAAAAAAAAAAAAAAAAAAAAAAAAAAAAAAAAAAA AAAAAAAAAAAAAAAAAAAAAAAAAAAAAAAAAAAAAAAAAAAAAAAAAAAAAAAAAAAAAAAAAAAAAAAAAAAAAAAAAAAAAAAAAAAAAAA AAAAAAAAAAAAAAAAAAAAAAAAAAAAAAAAAAAAAAAAAAAAAAAAAAAAAAAAAAAAAAAAAAAAAAAAAAAAAAAAAAAAAAAAAAAAAAA AAAAAAAAAAAAAAAAAAAAAAAAAAAAAAAAAAAAAAAAAAAAAAAAAAAAAAAAAAAAAAAAAAAAAAAAAAAAAAAAAAAAAAAAAAAAAAA AAAAAAAAAAAAAAAAAAAAAAAAAAAAAAAAAAAAAAAAAAAAAAAAAAAAAAAAAAAAAAAAAAAAAAAAAAAAAAAAAAAAAAAAAAAAAAA AAAAAAAAAAAAAAAAAAAAAAAAAAAAAAAAAAAAAAAAAAAAAAAAAAAAAAAAAAAAAAAAAAAAAAAAAAAAAAAAAAAAAAAAAAAAAAA AAAAAAAAAAAAAAAAAAAAAAAAAAAAAAAAAAAAAAAAAAAAAAAAAAAAAAAAAAAAAAAAAAAAAAAAAAAAAAAAAAAAAAAAAAAAAAA AAAAAAAAAAAAAAAAAAAAAAAAAAAAAAAAAAAAAAAAAAAAAAAAAAAAAAAAAAAAAAAAAAAAAAAAAAAAAAAAAAAAAAAAAAAAAAA AAAAAAAAAAAAAAAAAAAAAAAAAAAAAAAAAAAAAAAAAAAAAAAAAAAAAAAAAAAAAAAAAAAAAAAAAAAAAAAAAAAAAAAAAAAAAAA AAAAAAAAAAAAAAAAAAAAAAAAAAAAAAAAAAAAAAAAAAAAAAAAAAAAAAAAAAAAAAAAAAAAAAAAAAAAAAAAAAAAAAAAAAAAAAA AAAAAAAAAAAAAAAAAAAAAAAAAAAAAAAAAAAAAAAAAAAAAAAAAAAAAAAAAAAAAAAAAAAAAAAAAAAAAAAAAAAAAAAAAAAAAAA AAAAAAAAAAAAAAAAAAAAAAAAAAAAAAAAAAAAAAAAAAAAAAAAAAAAAAAAAAAAAAAAAAAAAAAAAAAAAAAAAAAAAAAAAAAAAAA AAAAAAAAAAAAAAAAAAAAAAAAAAAAAAAAAAAAAAAAAAAAAAAAAAAAAAAAAAAAAAAAAAAAAAAAAAAAAAAAAAAAAAAAAAAAAAA AAAAAAAAAAAAAAAAAAAAAAAAAAAAAAAAAAAAAAAAAAAAAAAAAAAAAAAAAAAAAAAAAAAAAAAAAAAAAAAAAAAAAAAAAAAAAAA AAAAAAAAAAAAAAAAAAAAAAAAAAAAAAAAAAAAAAAAAAAAAAAAAAAAAAAAAAAAAAAAAAAAAAAAAAAAAAAAAAAAAAAAAAAAAAA AAAAAAAAAAAAAAAAAAAAAAAAAAAAAAAAAAAAAAAAAAAAAAAAAAAAAAAAAAAAAAAAAAAAAAAAAAAAAAAAAAAAAAAAAAAAAAA AAAAAAAAAAAAAAAAAAAAAAAAAAAAAAAAAAAAAAAAAAAAAAAAAAAAAAAAAAAAAAAAAAAAAAAAAAAAAAAAAAAAAAAAAAAAAAA AAAAAAAAAAAAAAAAAAAAAAAAAAAAAAAAAAAAAAAAAAAAAAAAAAAAAAAAAAAAAAAAAAAAAAAAAAAAAAAAAAAAAAAAAAAAAAA AAAAAAAAAAAAAAAAAAAAAAAAAAAAAAAAAAAAAAAAAAAAAAAAAAAAAAAAAAAAAAAAAAAAAAAAAAAAAAAAAAAAAAAAAAAAAAA AAAAAAAAAAAAAAAAAAAAAAAAAAAAAAAAAAAAAAAAAAAAAAAAAAAAAAAAAAAAAAAAAAAAAAAAAAAAAAAAAAAAAAAAAAAAAAA AAAAAAAAAAAAAAAAAAAAAAAAAAAAAAAAAAAAAAAAAAAAAAAAAAAAAAAAAAAAAAAAAAAAAAAAAAAAAAAAAAAAAAAAAAAAAAA [file] YbAfPnAWsbELvLMFL7z+3JXuK5ODX/Learning Engineer+mLqOcKAeBz5w5B0Ij1Mz6cs5jyn93bKZA1rQZ7a15DfAgoUMD4Uhz1kw8S4qeT [file] QexBoAn/ALLl/vp & general counsel+iQ4msl57/SfGpb0b7woxgN3Eej8SgaNff30DkYJSWKFUqdypPRBkn79WfEy/AIWc2m+KZe9JzYhbB6b [file] 1pP7Kl/vp & general counsel+vqPB075uXbHCao4WzgAbD/sHNxd54jItvheLx79A8ON4sVwMcnBSVt2J2v9AzmKjFtJlaHIxWOPO+N5r1V8lO W29Ex7lUrN5U5TRfGUmF7/8Asqb++l39e1GA/vB7su8D24ewsZd/ciSigqauLweLGXAsVEX21EQOFMSstVa4aPNl+ypv76f rR/WR529G1lNghVry8Cc/vp & general counsel+tJ/Pha96C8pE+INv6cnqQrb6IwGgz9qp60lj9MXZk96OVMfOSqXXn59cvM0Q5ZYnrrx2K0x EvKsMZCF1fNJfWkea/41FVJrn5F8o6rEMi+m3c48akG/2XN/d5N3iXW/Dp3jMYTUxxR7pndM50nEWsR0RxKZbqF65Imd+9T U76mo0MiVcxIXfP3hkdymYdQh8rShdkYPoEtWRPtuJ4owylsJSL9+y5+9edDdDX5pvpprG6eyQP6BIQ0wQyAL3ukIE9fK6a tvqeGUCGW3nJWjSJjsjDBmJCvqulryzcElEKcG2LG0mqMJJ9ZqfG7dbkx1UYtSSEIEpyWOESAIHLHQ6v5jafqMw9nu+y5v8 Egect8gp0i4ON4s+ZGT1U9rArpo6tALJswKIECOjeSER7fZ7MvsPw5+mYUgBr1v9srD9fp6NjQ9vjDPH4dE6NveEoW+U555 AOoOlzH/bpr48v1NN/mA8h5wzH2VsqP6PI7W1Cw6fqBku9or6cnSGrWIhtVBEHEk9/CfBkjgFEPWm1K4tP9VsQTEosORDfR pFtnJoxhTYjOZt9sw20YXsI/WC293O8bA2Lr/vp & general counsel+tc2/vPDduWYZpZ6knmFMi6RTei/gOXB4Rw07TkN6Xrt5aO8M3mSz1j4 uaXudezrJtDj2AveVr6rXamt8IGcHdbcuuECUK+qn0ySE2c1mq/30/Wl/sqb+/H+herbert+E/iSshT8M8mWnDl72SC8JS/jvjO bst55X4cER6fIhPci6aphp02U+SksMZhH33v0HjEMxwzeUxNJ3dCcgGxBXVKZgeWtVzFZM1iVomS6vH6Hz/vp & general counsel+tYfivWtc0 /qn6OyqIqbf3qnkKMllIE5iLT6j0u5rxugRbpIaHHdlct1mvF3SjldjvSCQt9sVqMpE6FaqQRlr4XlWFSMgO/ZxjvQB2/9l PqpE3zW7Ry/vp & general counsel+uiiQgcWhvQp0TqDsiIoTRoNLkCfdf1VRatP/1b/Fd4aY3xzIMD+HfFE+g9thPxH+lSabeWCwymNpllDxy amdWRxgyPRvaS6YXOkO881H5t/sub++r00rix86h8bvEYMMWxOP4u82LMN4IbnfQFF1TSJF2vFwlEj+vBAo+Luil0vBxmOz 6VPVgfCwsYJdNJbapYoOUPhmEH5Y07XKvs2xYi79/Wj+jco55ijJkTDTxq3HJ6vW3i/suX++n61n/JWU3g09IfMy1sjoToq zHDANkcO0mskmxt5l1/gCDRbPndU7Jje2o3ifH7c7Bq8a989dW7UzzdGJrVu9FWfvIWYlVZuf9NQ7hN0iv3Ks/vp & general counsel+tcx8K7 B7zy4Vl28e+o5fzQXdebk7raZriV3AWscedIAmqUi50q5Sw0ti9689X2Axv5foaDUhvHqbeMllvSoXoTzUb87tLjC3f7Cy/ vp & general counsel+sP6che55/Cuw7bvdoOteXsc50Bcv+10IwGNHA0bw3qSWRKVbon8sc89HshLpjv0RniK6Td/SvCvIsrrs8qN9uUT1MXGV xfKGGCyjBLZGScUAdh/EV428O4x/sqX++y45NeiyVl0on1tCqC8NfG8suhucS1t+mkteTDflvT3Ly9HnNmVxP+Jri/e60/w M1JLf4FNIOMvz079nTv8HUAcfQ9N09RKx/AOypuzx/rR/RY185P9dutHgdNj9A6gz4IxyVTxgw2jSfUctzjbyGzO69YX1eS faVd3GmV4XQsM4Et7YX1d2hfB4XVjBT2bXuptmwZFSlDBHBR0C5tmFub0Pw/vp & general counsel+tH9ly/30/Wuan+Itxazrp8+gS/2x/aEV k5dv8gA37M0ifgxzDCEWb3CoA550g/0XpC5i2QeI8ANFoZFuKlX73R9jdP0V376XOKBXCjRNwoSHI2aqXDmh/Nms06A2bd5 Km/vp & general counsel+tcD4L+Sq5nwAsHPpHwdVOc9e8rY7VUyzkq+Zy40pIHbL0B06r1/fl2cmePILuvYWt5pbjyPIwB1R0oiI58UVMQfRF Y5ASaf4XJ/DUcpi19llKa5MJx56djLD549kH1YfCEerBZPJw1ntXZ6hxw5VUOx4g9TzC0QdfUX9U/nmummZqgsNXc4CkcVo 97aiiLCGUiUNuvcDrtGvhqUGU3RO9E5qF4R+rep44pjS/PF408O2zw9+P8s1bh4D5oJFV2bhchAoPsXj2T50VTg4rSSPHw8 gb6kl6YuS4oy0x389+0pYBL0dDc2CLQcpzwkVFV9kipMwmrL9kV1z4Uq/vp & general counsel+tB0qb++i34uym69s2usUEXIymVQ6E07MEF5 DqxfJPXLrLq9ui4DNGPcitlZ1xSKcdl3b5/6ql2fKHM0ZRLDSQi1aUUsPi+FXgZzk8/DC94XWa+xow16qkF/2VL/xK4ahWN T9sLv2mXv6y6bWU4nO1l2UEAvNCiDW4RbKejbEQTnfh4F+SJZpbRyeo0EhLOvNOO4NxLoXPw97sBAS1wuosDba4juY8GtyK 4AO/wD7Km/vp & general counsel+tJ/Zq337F1t8VbVTpfTV3czhivhLOzsELjxcu5kTy1/rmj+MrHTta1/uVdL2rUzfWKlIDkMr1rqeBYACGZ 5kUBskhM+tAHW/2XN/fT8z/hS/2VN/lW0sUSeRUIhkb/2n3RneVIZRrN3ovQodbFewn58Hh4ipoEKAO9sR9xiaAJj+y5f76 frS/4CRl58vzJA8krki95N+M4v4vLZfbw0mIsqHrALAjDNGy26FH/CsB/Ce7ybqWInV5i+onMSwyTHCn0UJBA+nlPt5fMHZ 9SXMMO8uJ3Y+idw67fdUxVoRkpBb6orM3J6dRS9JU05H9V8ulU3B+tbidIXtolZlOM/cIgKRfIoAhKUYn6rGjKLwCnH+3Ir R54DgzQgHrPCeEaBvKE3/jB5/TrQBZ/rbzTwHWJda3x1ZO/g7E8qZIj1Bl73gYiNAUMZ9llj51DkdiAjMvVDRQ6vz1avlZx OMe9W/7NnBqI6KBPCFp2zW/v61TNYXfDzKMUIs7eprHCFpFktQHSTV//RKWUm65A1NgV1Gp/AOei/ma4DW/iVrF/8YnL5iW nYt6A816hetD4BGQLSXA8EiWVqWpvblfaJx58adQ9seszGtuzVd9GTW8z7euTAIvMICUPM40XDPeBZFtQj/2XN/u1J7cEBg eBNMtNU/gO5z0W3vy8bdaqFCubKoU8JE2pRA7tBj0cCCpb8Lz+jcWCYpV06XdV1yQoZPqZLBWeNq1LK9li1Cih/tB4Mr3eS PYngyEw3g5n1Nyt07zcDm8uCMsWhH4HIyNDw7HzJ3q+t4cSMIG4vn+y5j/CaT4QwGvUoMFr5FrJ/wAI7d/YNL+ztfXEkqo8 CTRq+iXUCUY3oTunWpqQS8cA0zFC/SnHejePwSr5yi9tmtIcEJV8u6wx2748MKchlUew4+RDsQwnhCT8yycGwQAh3nPfbf7 U27cs5zbFchcpd6nQMByruc6z7wdbBvnANr+hcswCvnG0+9XH+OC5tgWc5p9IIpjp7oq9BKanyoDW2geLDWNIxBtEumoDqB ncEoX7Tz/94Da22PY4vOiAHK39gr89NZXpG7xhzFPr36gOKWsCjpOSY6OpAVl4ZKSiXVuMbt1lKPrJ5baFpsIEt1pBmruu5 ksbgeXKpVCxQ+b4nasIa/GubFIBN0qO/sAvXnrXq9lnTJeVzNYhpQ2G1cbhODZe2a0mNHkzjuMwdAR0Lu4sRsu54l5/ABDu L6i4K3bxhUL9nyOuKV2OIqsWl+KGzK4ABxRc6zRMxD6Y+fCltdS2yF/3GNFweb4Gxs/A/zH4aMpQQ6LfkOcTJ5OJamqnbps rBKMRHrnAbAwcDbVW2+YXk0h05N4Yg81mLpxDohEMwcvxWnFIHLFfBWYaTG2U1lK/8tE9+SMlFo7TpLin8rh9I6Hcg59g1R 5VcilzFDRXJdzi7pNIByT21/NmH8LwsrPlnxF615jFQf+pxBUiAgvrNZmFhKsZVNVVtbKL9MI1mOb6nsEOmWHv93HUNeohc ISLADCbMTlGwvlXxiZCh2qJ6DW6lfRZDrIohB8uk4nF1xlo2+0E86n1xKGbAfi8/gQyl5R4b2+vazytow2eTaPiqq8y2SiM iUOq1hsIpYdoZ7vWLRz2wBZzf3FKExW0Y0OTZxeMq98GJyBl3pZ+TtFj3zUct7/6Hz5a64JDs+9A3GTy/aE758QqspzTXp/ oYPR896UkPumLbZtR2IVW79gM2gEzcnASjWsJEpc+P5RzR0y+zJ/+qkHD6DP/Zc3/AU8Um7eoUbG+JM+rfPqJl0x1qDxT3m bLmwBzpR6LLExmK790+RsPr71x5l2cfX8ZepdkuI+9jWLSlZjnkEqUN0q9lQYCbX52vpnywrMSx/2XNz+8Tnr1o/subtIn5 wfOg1cUfSe7m7RNhKnayQxj61KcPQJkQL6hbaI1GsMM6KKnOXhaAPNy+g5fQ9xBqP1m6TC/AM9E/D2q8FNAZ2tgj/6xPzNH 9lz/ETJMJCwf5uDRBq+y5u7p+tL/AGZP/wA9V/S4aVWGEd2kL526svfih7LKh2bRDoMY0GF/4DZeApQS33xXtrYyex1s1HS 1D9baC5bzp2+L6Gs+iRgAGuv7SGGMGHKs6Dkrn3Qwqlks+7DxWCqEKtvVsmm6G1qyVcRfnt8TJK4WZwsyReZI41EAiiHKZY 4c8RePPnrIktnZMYrhr4XzNl8oqUIpEr9SH4z943/1w5X23cVk4/asZx5pNe+d7wsUomliXbKtjUnPFg6ECKPyJE6szLtT3 uyjRUVDwq2SbySSzGLgo5K9jbBsyo2a2cKM2O6Zs8FpNGHNDdmU0Ri3p32Uv8iocCAVIT4fK1a2sSYLkl2t1/Sa3IZYTKDz rjDmfAmWhgTx33vsZtzFOH9VVhAQF4NWb3opBivLjAD8XM9fDeiJT0bM94SUW9kzXgceP0Ww4kcdUAWHHLGV4QagkbLCpWa TfqQLEPaj93uRty81VlyvPnljogvKch2TNECMG9hgfEorglGfusbBBHTBVYF2tplhlaog2K1datJJGpNqlJw/rf4D5YSIV5 jn5imJCTaeHfGtgEu8I7FudN3un1B8XmrnPKMSAtklq5nB8Pi1hZXKW9Wgrofr+8DXqdFAHnepfD/PmLWes2GhoGSTA0jMZ xI4kTM0ySnCSInPCwMGPV4Ufg0GbslqataIfZH1Jx0c3Js7j12fpQUlKBg0bRJ2V6FXZHiei74HNTJR1vk/EL59BPSoDjDn jYCxq0FqHSp2U8aLbKJWT/cfxiFC9uqw2ukT0+9VuJjvf6XkbwIcoxCI8p1kRaGW6XSs9368fzI0LVEx/pEIoB9ky+mWv9n 4Iovb1geVYwhCAnLBIAMkiCe3OOTUubzevf3q311/tm816+ixe9qFdM9AU7JscP0bJ90iwifC4pE2FVrZXAPk+EvDp2lxym Bz1QqrGTPJBc6tp5UZFTloOmkgKCgJ3BDQ27+8bvQ2O7hayoGdigFJlCpjzhrdPs8aIKDdZ4DNKC9pLIHk+DtL1DQ/B+maT vvCq5NjbjlW7FltyLZCN+UEIHAvPNh0bWssSelx+87y4i3x5OyV5ASxURRT4UJw6NHrInrkJH1FTox7E0VXmNvwWVwvGC4p LDEx5EKZ5slhAmrQtCiX7OoIGnFD6oeEuwz/cdGeZNhs0o4xlUFi7kriP0g5Xs3BgyXJCO1GGNEQW6NlVaAxyugkfKAcsop 0y1ur8NPtkhLeTOPKBcXwUfDJaofwjZ/ZepHzubl9a+y5UK5Gno7F7sBojrnQNWUA3XufWEhBVEc2pFsKCazkN5UrL3aIP2 bt1QN2YpJekn4a1qHaXBHVtyjzZHglG4XdcPCRvWYJj2Jkfj78/wAO/jVvbYEcAPdw4VhFEQYMKXNLczRIarPHKRcOaEro7 wyiNepdqB8QXVZ8VO0PBV9jKocheQDuXHq9SGI+tdbRRQAUUUUAYXi/w8/iXw+1ccZVdPpUkJ5cFyy9HqZfUFozzppP5Szh skl25tUZyyrXT38Qa8XxARDAIuUj0yzhli2vsIuORQ+AMC5YrFHzgK6Go2WnYSV3j9hiysx8vMsWTP8zxfvEKnqK4f9heol bgZZc9uxBThozrgngpGZ+75xBCFd1zg3iUNMNuRcUiWpZkpqG6ltfkFbbxZSSAoOoF+oeH/Jv0sliJA6PrSoyU8nKHU2OAj JPnnkXB9cUMgaYdCy6r6xsD/TS7Cd3xxzVPBXqtOQQzpHfbEpk0o+NywERmL9qml3FLK1WzY0Z1+8oPK+mR2p+WQDE3v9pl ZsY5B2dMxD61dswKYlN4u9JCYzRQKaPO5tGvXj/e6Pf5U8SteHmbtM7VafmLsTwOxXZ7MdMrjjwXcZhAPAbn3uDI9RrY6Ra jsVFMtn59PKlSqZRNyrHKtOIq/iHwNfawfFxgureP+3aW9kn61n8Hj3bh4W9I8QpNxu1Tg03dKv33P1fdUS20xf2MuKcRIx uUWLNI0DOEEvLT104lRTQIWZtzIQ1xi9r6A7kJsjdjd/rkgayyI1jf221B4YFbaxTgvXa0nxRw1pW+IhaatwqaFZeREtS92 T8zgRwqHn3yjOB0AHJbiZnfvsFORSXSLDBpykJcjM91x/e2v9fnOq02l4W5h0mUSWfhI1EC94TybBo8jquSYkpN96sbrPap 6HcEzS3141oJ9hPmjsssafTE0XaQzKAnau0VbHOJKziHle1RlxncFH6keJJNhDFpIgIcEU7JY2hsFPKr0Q5Mk3aeSl/UtLk hsBzL84in9Q3ZFF1dWqfebtTXPKis6jLen+x5qWUye5ejNf1+67LgoChY83gIaFiNRTDJpznx32sfTv2A5D9xrmMZbRRJBs YyaV/ZsElpZ+P93lE21z43XTXOgHLtn+lGl42ZF3VqejAxcAmfWg03sPCTS5bQCesfr9TtGY4Mr0JNLZQfh5maqKiO40fga UEt7cJFArq3a3O3h6dXV2KqYJCWVfwVL5otKMyx7+t9LiA4zvvHpBksU7md9Z5VNNhWziYby6Bj2+1dFiigAooooAx/FegL 5j1C0keAo3gLDdB7od3r4KebVfzmjNuHYQ2G5IAjDQnXld6yVz3baKbTgSiam7cxAyg6hkYYdnZQSk421ZGKSDfznE/hvwv Wda8APXHQULXNodvj5trArkBX+ork3+ZtcA5iU/qb6e4j84+7ghIpA9NeWkUPtGnH9JXcAfINXwQc9BiUoiCzJWhtW/hzR7 jTb+C5dcO0vdnaREyGfEA2fej9EXuJIYmPGtiOCKa7F9d+Tr3c3Ae5bQUnyNXar1DjYMLzAkuSHYTAGcMEWFr6oURCgJbbY zxyottkIv0UpEtg4gtBaajDSPh2WThN20QbhHJ2S4D9gRp+pRzbV5dTV9UxazfEOutlmdKOgyjoertreHsQJAbhfpmy2ygU fybQ8bImqhG9NXbv6TJ3uOj98YRNS9Y+H41UT7WDl7ZpB/cocA3tPe0oy2w0cDmL9RrBlffJLzP55afx9hyI8jEEfqRIzjt aIzGafTRe8p0WoySUis0N1QJMVES1N8f25UEr/ld4MBpcTXElnG80gWUTiDM9SWLerVyXQgDgzepd4V0pa8YO999yiX1qSI L6/KSt5TmgamFJMzLKT+mRXoGKKAPPtN+H+qWOn+EuU7Cwst6gQ038g0eAsYJNHAYnDyiuEYZ65Ab5laC/Zf4IUmORVda3M dtb/OjTLRNHhCl2qdgZEgzrRjaOYpTJ0BsEMMlrx/Qr/AbzSj8qI2B350Gd27Duz5rSDfRDRCtmCmNTkgu31NO2A1FF9kw9 V4djCMxQ98eqBBpz9+8EWIoyp9vrvWcBp+C29C9Wn1ZG7ybeIXSygcedF3MoQAhQXWU+NsuQDRAjsCuQfc4vt1a7Fq20vPE B0N5h46/Yud2+S1Ld7LMOnvswRHE1vm5u43s93AQg/oaeAH29r80bH7Sjle3DsUJ3s9NCfdhMxt24q22Xa6hPenJnSckiS7 3wwmY4g1BlxHzTqBkPxWXNoEIN7ku0PJIYQ0ST/mNi28Mm/T81FzbrDmjIiHo8lFRJClb5X+W4uQK9NgRuW9Kezgw9Rw5CX NjNchlkVUkB+QQCVh0V9rnJYeVTETkDeK9V3B6s2/S/Njo920NT2bNIOLarj5imFtFTIfj51w5N00YkQ2w0ijMVV0CYj8/A HYj9A6pV6bveFMegN29qSgCxUxDd9BrbFknVplEoSdyQQoGkgayy4psLEMFJs6klNuo/pf9VXTuGq7ZwqcFjmXDJBptngUd 4PKxT3FEr9ZeN6d4P4N5HwvIqa0wzX74aFiufTPNgwLi8Jr4Az4u5gGnHsUuyS56i/uFqOypRPiMOMOyedBi8Z762LfJih6 FFAHli/Cq/tbWzEE+j59xmteSuyxxelGHlBbjI3HoihKOERJ9MRvm6KzsgHYk7xPDVu0FFnLkkSQylS3OtopFyQqKXCFfPY LTkDF5IiW2nWgN9/tQ4hUD2by/u7kYG0WiNnEaTo7e2cvPKRixrZBhHiroraQk/gH7Y92L8SvFDg6QgBkUfBm7iCsjD4svR PDga1IBGxHo/M9U3Lu8B+39Mg35tn9BIGob2NUD2lqYyLvoIGGGqEwrxHK1aoTx1vKduxTwP0ZRp5o8SbEzwnN18A9XXdTh XpfYMNupHucigXZ7dV/SsSoTvt3RY2LQxPbEXSuruETQEjfWQpqD3D7SZvqvMIGKO7Up9h26/eSJqe3MSZi+ooou/PhvLdv PReGPJz8TLDS4hxSbyq7yK09wXNJ1LavCzlaeX9Z+FOmNeJzEfrlw8xZr51dCetp7ht1jUkt235V6a4k+ZC4aw36XDaRktO a2bCcraYItfB4talaBcmBaOHrWHUE8f+O/haK280D3hahiCJvB7bSj2XoKrWgHGnfbM5UtPR7NgoHkG6iHN4q9X1FtgwSGn Or3ptclXJLKkwmD4n2T8lfHmkE1bwG9lMLKHi9i6OTDTASJC6WQyLj/JSMrvkRF1hY6FsSPjMjv5u4AScvlpoBMEpB3Ue90 ozDbKwt4kf8Y0f966+8li5gHsnjIwmNABoANORkKXdqJ+D7u3+Es/zF6wNVMcnsXp5Rj0GpJKdWkW1xrGQF9LpdMPWTUZHo oLUEJAIDnLXyS4dCrV6c5mZTVWLurzwMXD2MUQrsC6hCFI4s1y53pU9QyE9zisi5yCOMnDjCanRidyEYC4b2B6xZ9UP1Y9+ XXf+ZlN7ys9CHweBZMunrWDYeMQf1R7EqMv4CgSrMvx6emD30fXEidXV3fK9Jb0R43FZez/g20gWmxILbmGESXcax8cD3Wb nvVW2+LC70yIfFo7umbQ5EBqO0eaA/rPyZISRUNWx4CyyWpoTEfXzHj3htL36FjKrBwqy+Kj95tFxthRQMNjuKSfpUXBaKT S2VAPfIpIP2o+9tI5OAdozEYzZQe4mmFkp1lshESkh1prIRTUeOqPupxL8xHBGlmXrXfdLnhtoXL84mHLkQEKfuYrPN3RXC G4CRJQKaRHQGx5B3sl2cDbvRZMF2s5jx73FyPoQVjeDwQhmZpy9pZLFPY9bw8JeerueCxL3DFX/2WuGGoj5aLEgUsAQX+XI n0SOsajNQ73W4xIvkJXFQYU5KM3K0CMOon80K1knSDo7u0DBF9sSYpBLLuX2fpDvu9Lr3pY4hFiwOTjpLtgwHSP2Vioq31g 5vPtd+FO9HuX3HwKYJ606hMDXD1SC189SUZhQvkA7b7OkgdPe6u7PKEOCQ6CgQl1C2Dzzi7bvarBs10eZfJ/Vo437wxkBkA XaKwzRAFNbW9bwRgrvq8Wd8l7sv14Wr7sztjygW2HsugQ4X7cuFHhKrTmaa3kA+kSGqmMvzuuFVjXHQ70+gDz+58DazdSXl l54Gd7Tz5/OiI5av0bggIjw2ohLhsIZayfeA3Pw51VztnMwbvbCZDISDBrgfhLcfqwIzTU+/O2IFdOxt670bjnc9ZOrVbaB nSBwzsfSL3L0Z/vI2tfi7Giih6EVKXYOUHSSAAKIJLUFFMOIMSSJTUANMBZRYPXOEGTJIMZALLTKZDNEHNIEEOLHCTSJMRJ XVEAPCMQNWCKTLWQCNWCODKMYNQJFNUCZUHShdz5hEh0tw6Ss4k2dL+icKlyezpxgZrLqc5hruIKwP8dDv4Kmb0ld05KL5z lmtmQW+Ay4plSHHQXjYTBekt1Lc+soNuVescTegOeCz4tyxPuDfiGzHLVBtPVJkHNpEOO4wTrC+JPWFzs5yQh8SGlw8fyA7 /tgxYeSsug5WkLvtPBvOUCrPoSDnM8B8m5tH3jIg6l2NfnA2mdBdSboBbEfPEmyOEGoA6j+gTOGWdmYZ9QlbLieUt5fvrpN UZ9DUIpJ9u7p7F2z0JqrB6pvwr+SPB7yu6fbMCwn0FIOeE/tWpdLw0VU9WzF87a+DvaEXGrvsRCAz8vs4hdKFxtNMH0ZTB4 6CyRiG4STBZ/I966/YGEZTt1wYj86u34tWjoDMQBlrQBktFGCpJ8KrX1qLu1i1h03y4emN+Eg26nLxnBXMPUGW9uYwZ327b KAOE8T+RCEHbcxrqwVcGw3mHGqiklepHVOMFjIDwtUpquZihK114Y4/E/nMx2B51EdfyYKwzSldmy8VjZMkQMR0F0QJRiIO VlGfUZzXV3/gnStS/mm8Z2mE5Lbq7llY2HAq3mAkNW+Nh8m74i23O3c/cjRsQOvy7j+yUbellswuMRrZZJ9rdqqh2o4PO1C jtkzQiQp2hA+N15OncgVaY9o579TWVGgytpIqlUrK+EFWMVl3tufGlzT2O7a5H9ZFNWIAt1wJ61Zvj2ZH1v8xO1czbqZDnn cgTNOs5f9C1aH7eXmqL1n5knzL4aFCp4rhulUb9xxumR6anUJ1MWH7d2YWZflSU41E/PYtgsdtTKMcebk1rRolaLyYaRpV8 dsaqFurXiRIy0zb2pe7oExmOEgpQeRuRTLqW+Tyajc8wNd/iPJXsDXZ+BSbtGAi4IC22S5pjWhuVn3Fqye3PItoXIpPIVcU VABfQxGMq5IbRze4f4gGgPGq7XyGDLl+9AdhySADu/dr8wxV/WkBEutSdoKCjnd0o8dOCuyadLXMaoFTKxYIVqbv3ciOyV4 sOUAFQvvrxAzeekDPWBFZMvccqGevvdIBKzjyG1jQnI4XQ77ij3QPL8Kb6EueWmVptinJHqD25Bvj2GgnM/BWlw/ZtrXH+j pxTq8ExV+as69zbWx/zBmRrrMVournYCJ7w85x0wXDPwl0cv5R5YhHSbdmFodbGkzAmZF6Ww2WIMcJLbhoEe0vHRcP3isdr 9e1hr5OPRmIIw75C04bSknvD8cuME0xkH+H+efTNlItuXptlnt1MORvJBzO0AueANmEpFX1O8kDEwIvK/k2vVNwWhKjDvbg aT/DYZAayGVGhE2E0v4H16gEC5t5p+15oq649Wu+Z1uNB0+Z6aJDePpyMAhUephci94iqEMUJWaz+FkK49sGDun0ePQQHy4 1OdBo20OyXnbFLYyFryTTUDpv7bYpPbrJbP1/7Pt6R9YXy8yKDTNSmbVosu/xQxq4ukIqax5nzfkaGMsT5H4uzsZsM3fus7 FGGFxwS4QqqeHRUc4CiyWQVlX8adJRao0Irm91ZMCLNryJBqUpiV7DhwTHxKLyNE9OCA9RDGT0v6QzYy2pl3NKObezmH6ah ef2fdIWX7Gwi5V6J2PKROCotWMFBMJIJNMUEOWEPRQJDCASTKMYZKWLYNCJDPYOXGQVRKYMQCTTZ9lTlUwziEpPBJM9ElEV VHSzMiv1x4uJ1CdzuXNqI6udDCuO8eklIAip+BReVZrZF5480fbf7b2v9b9Zy9japnYg7d2rDm4iPluqI8R6E1KEJ+g6S2k YavKc7Q9SV54t6R1+oFAXE105Xwyg4FM+pHRvZb6cDq1c+e1ts5k2AKoiuhyiTS4uhCHdM12lJaghYEQoUtXwifpJnI1ZzY c8NIV7racNUyPWV9WPLUfRoeegh5Jce5O06/wCw/aNRitn0+ZAv4uvdfKgYPQoWtyybibPhMxUT7L6Q6Y8RmDBnjSyWTyJm mpHhfwsKa10Hf8kdj97Rmaf+AnFk9KOgIkn/pWo5R3shciFA7PdRAhcKduaUBUJUFkc7PEUFZ8kprRIxkpo7T5aEH+3u7LV vPiMXtcG5FzPQ0HvNXG4YyYsS9dKzQ7y7+QRk9myMo5VdjcJYJJs4l15cNfKkLv4cjYGmnvkWQHR7KZh/AIb+HF5a+IbabV 4sHYxS7mgDL0U69wV1WSFbOIQdKwZAamrqTsRJZMJ/ytsgawZ7p0VKNaWpDs7k3y7QfjHAm7vXIvUQ64ZhDR5BV836emd0r 8YkNZgot3qC8s5VLDHOmvHAH2SmMImqWY3evtPEaw+or8cpokx50QQ8zwkEnWnDSES13te4ELGtjFQzngj9ZoFZjuxka4/4 J0zPw4X32wxz2sMwo4ZhWFRC1Zw2hsfd8c7vbGMt0+DdYT368kg06A4nupMPM5Vnsq91qcSOPPOptu9FiUU+KT9ozDAttut XiTxTqM+nB06jHbSpw4S91Z1cU9cj0mvKcKWc/d9FA722D07LCdXwgihK4di1J9KWCh0mcPn4gNCKehO+5DJ6pldDHAeqFH Ol6d/ZH2drg/2RNcT2+8CMMV96+2dkhZ1TkUXBM61SGcSmXqHqUeNrB8bxIyZY0vP/BQsYRHKS90qAjFv/ABb8Q/Y/C9nr3 +tAG83CqQm+T/cup3Zsf63N38AsO8h7yduNxd2VPfvGNmiXlp6UV4h3iWOq8or52h8nT93bImmSaxKcGeAfURV6MgwFoTUs oe8BesxXcpvrE7ZOjFygrHCxtJfhTE0EFTU2n/0WEixCB2nk+Zv+9v38/tH5zoilGW2SjL/vtC8B9AnXNnnJmq0oKtLPS5K 1AXBG6IbNlyacLh9QcLEQQr/2l5l3t+1/srjBio1R0nukdsnM3w/TXwpC6enC7UsH9CgZTSxyVWEnj5RAft7pBDRKsiY9hn sfnHXZJBDMOpcCu1uf8Tq9fRpF7o7p8Kq43frVtshVdWHJNkXWVpXYMGt652D8kjcp+sV5kCbeRkVsch00TEVY/wBm+VJIF a8D7pWtgvQ2Y3VtYSwQuAj8w603Vd8OlTD8mMtvbju9MyTXNgibMXE0RUGpy9Q8Xc+hTAgHhanfTOZV44TA1lUqKuoN0tms 0IfUqcY6qSVMs7gnaEOk4brx9kRkccsK8Y7qihEXVQOB5H6bVjkF2h3ZsP/IButaVgAfAJ3WEW9oxQ7F4BFFGW5dqxx+vOR pXetKxM1w8y5lNQ315QOsRgQx2z9AVyM07IFhiTQkq0R/+AKmytQJtLj0zWmjc2rxMDPJ+2RA4obweeDNzQcPfbsghYLf+H 6d2MWpXdzSnkGQW1gTErpTDsKNhEPHtyg9OCDjbJ4mmR3GvT8xG6ej6tzOqtyyI7l3hZtfa9TgSpydKklEFiis0TXzTKuwT IA7ILKijSuj7wACB3soK7fsrfIrE2nn1dTeAPoaoy0PVYQI06IH648renGt1OoFcL7YqSoqg63hUED17PyCebkrvurfW69h rW/kbZ6hGpKpIqUbztruUgFYcRTRtdkIG18Nkm4eigL0iw9xrKN5nhZwjI3oEr+/13qoem8ircWFH3+ZWUjIwDtHHWusvvA cb7nnHn3T5d5Ynmv+zKXUvHCWeitdWgsZEBxMxTAJi2CgqWDNdwKU6eyvCyoMFl5xdXVAyLYwBqkMcIHKXFZJBOnrXqtTrR cc5ENEdWn86vlPVJxzZVzCS458ySZZh8ty38BPA3l7+l7fJ1xzo3eGnt2a0AsvJpUQbn9iHa6qPxKXzTyDdFJNM7r7uZdej M/i5/BkeEpdMZEeCXx64Mp6Nhr1n6nFggzajox6h1MHz5Phmsu2jYDJGvzTtiMEkWYKcHFSSk7d0IWADIvJdACaRqgBhoiH 2rCjKwQ5VwvIuED2ZkfqFRAbHMKqkPNhTH8u0ZCfJwJ2vPhW7f2jRd6CPfuSoBzIB1ODaQtCovZuyX/+oqIb5vuROdjJ0f6 KgWl6NvuyPE09IUBPTiRLXh8EVvlvapi+9R71ERXB9GxpFwGKosHM3HDgJnimggomiJieEiGHnSQr5+3zCqYY47NK1J4KUl uDFfHDWCh0AENlZhBqdpWHzlMuAuV4I/Pbzh13CDFuDDY4XWQNcmToLbZMOonzILHZma9FLda05/D3Q/7P0+dbG0xw0V0RS K1W0ntScDUoGDqCriYcPQz+UWmEmQP8DhgaP4I1txzjNy60CcDUqKH3Ju3L1eygZAfKSBjcbj6v8y0GHdgXdm3eVcEKgLkK /aGcN5Uy6m4oYvxSP9ssvK44c2azYv6khSIeV3ZSprPpuL7P/ZaON9BBTZXbiOYJ2/wJ4a/8DJnPYmY9deqYP4qTqyH1SXa AWHBXpC3zRvu6XlVVckNCbgPR00TzLVkbBVsSpiqoC+3E8T8zuRESmkGRdoc3/DNRy3MbcWmndg4cm4OCh8cx05x8I7InAt aTXd2gfm9y+TDO4c1sc3DMfjc2uJ1QM2Mhz9HCGBfnyfhAsfRC2EzJlJ9Y2YVYkctxxxA3k1gxFKlNrB3kQ4ncShIGMz1AZ WAQIOeARlz5Xi6l8q0PuP7a4e9tWh4LECsZnDKQAnPLQuShrVpIfxrPhuTTIsdnrsUBSRBGHqXgvtaY7h6edy4+L6Gs+gAp EA8hYNKGMgdrHUcOm7P2P0954A/gA7jYQpjaiRetuoZQFTWAAgfgaUsdlmOSSLLKCbcutNolbwEYQEZKGvrhkLoeusAWZUO ACiiigAooooAKKKKACiiigAooooAKKKKACiiigAooooAKKKKACiiigAooooAKKKKACiiigAooooAKKKKACiiigAooooAKKK PLExuyeBwMPVVGZKWVDAATBZBVZZURYCFCBPYBCTIMHJJJEEOEEUMAHOJQQYAFLSSKNHGZWNSPumgvTJNV3D1tsOco65s53 mgx5U0ntTQPoAJnhhvfZNvRb6JFBzGZSp0VMcppzAlF5lu21y5hvg4n4fd7QnoPqBLHD4ErISoxVnHmmul0RiVQmuNMoQWP ZchczE5F8xAjbOQ8SASfLMRcEMNpTxUhlec+w/syKGPwt/byjUm4+uTFzDE3ygjj3E1ulYS4lZ003Avwn1e5pg3NTAgb1f1 U5Ercg5h9FWkAOpSpJMUV8s5alucQLGcpnsN5A1onFbJXbo/L9bbn8vvajBw6a6sor+ul0+S+DDOBfhwwyQECrO8J47WOZa PvGMdMX3U12vw55gpDFOcqPjjnKWwNlCmkFgKSPkrVPdzNebASw05TnRcDXoD02lxlWY1yGvKi5+dF97/m84m99M6PpYcos 1Sd41deP4fwfa/Ojzo/ZLkDx1TLNICY96oji63+yGuanqxgjF/Q38rbVpa76XqzqvT0CTJS99yuaw5M063hN3f/4Sv/AISm 2JuQZ99hYglg/a3aN478ltUwzO4203GVVdm0c2VjHKBnaCU1IFWLKWAywy6xy007xmEwPmv1bolbNKKi6vu3zcGQT5ABHa1 WJvK9jt25J1bjMqgNMcMU1a3VOcqKwb2lO7D/IKsq2h1I/sIxnVfsM/8Ab/l/96Hyky6t40kS7fpnjKVHTHDEcswa5J16OO Rk/cRC18EIIyH2MyPjW5ZF4hW85EXO18N3CkEgH6Cotstr+d0MvwAS+RrW/uUksX+qMXuZ2DANYpAYHyiOykq1tanFf9N8R yN9aF31KTM/xlK78QkRuYNk5jjQ/gVCcmEDuQaZjbWR0vKt5HXdUeE9LoPh8dfXxLa+luCbpU1QZAWKdDLoCuI/XRdjz4OB wsob73i4aaNr0uxyz1WDGhCUt7SC0eZ+lShF4Hotk/9SmKk3FWwjWnlNQnzNQjxIPvRhRuUAzctUqZJ3p1nCNOFNPAQZCUX nYSCIDYOK5YlxhE9/PskxCONmHx6HMpkIhhP1fDwY2FdDziNSZGMPQ4IbU+XQWM8y8uUhZ9SPLGtBC228QGR8SDsUy12gyx l4yOvjqOa1LSzV3WJ2UvwzqVR7j6TpyP3ptXkiWoN0SVZ/vVruz9o4jR+cwM8vbVSw06a4txeJrpwsNaWTWN300DxeGxKqv fihJY6DG0j4n6YITqQybfYTyJWBq5tliT96SP/chBPAtggPqj8XeuoCvg3dpVYq/uGB7WaAWEuBGeSxKMNgJttLJb7nS/6b NAJiQXMu18+okxcLMOK7tFyEJzbChaI8T0Y6AukxAIrvhMksn5MLsAiLbb6Q1kcs93DCQc6/KvBnXUb+PRrTwctjpmonWNS rjgf2aagVe4NU2nzo5agTUSBW5az19mxkG96KAl+SbW3Ox5e6zHg4eDpXAEAv8gHLaoqlpiQT32s0ql2saxS6VfGT3AePfl AZkJOxsejDkfWrqyI+5Y3shLHLRcH3bjLNK5dCnpyCbxynnras6M110wQCTFJEB9aKF35AX6nkRcifxfrv4V5v3t55qYXjW rB3ZICJlZG4v8eLk506bgfh/DPCYvU6MEF9VTyqC3wfQh0S41boK6rxmURAAAhjZ3MevWJ6uoiF6u5Z+QYqYP0nCDHjfFyR ah3hfJJXGcvhCRGCeo2+oXeL3zZ7kC3XK0Q5zbyqebQns0czwb03bOigEqF6Ica4u0Bw/gk5F2yhIGl/Izoc0gThWEG0pKK K3v0qVH0qw1UUmxGU8U1IfNlbAdO7WwTVUY3qQRB1qn9yQ+a41dxzb3/trd4n4njP5HmGquamk4nofwSOcZg6Nh245pqua/ rpwPn6+8ICmfBLeRujdd9xtDcs+vU57PkLXBDPOI4jgisbAgcjHDn3ZnMav/Y08oqErt05N0q9icM6FBfcRRQR08z2GAvdt uOxxY2EsThTVGYUvrqw4JEEd+YVAzVWDwHGRE5rIB2bjNtQ310VmZ5g0jVtHtztRmDGOHlhXSu1BQv/TQzy9HlyTtnuttSm NmTQ0IzP16HrlXfjR6YwJ6nS8YfvAsyOx5iV5RMr/mDNfHLCDfwjiWOFjjmOGedfIy0CCLkTuSz4/eLL5CLpy4QjZhp7AKj EmoWAuzvrILE58eV8v0mdCWdJ425rpyfevwLP5ak7AUo1V/SVvgXWnIxeO11aTF2GcF4aZo52LFTH/wA4r5+C7HbLeROxhU 6d/oHO3oX1K8NaBsqhC2M3fn3LfO/o86Cukx7ggCjhHAdiTnxvcDy9cQcHQM8awN8qlo2vbTdMLdY7lNGo917Ww5w6eQHPh WMzVDjMtK6xd/eIkerz2ZwXgzr33m0M7rbodV27p7/VmmjFMRPJLFgtNgwroleL0kvc9BJ0cxznhYZo+5ZzbXSGskGOeIH7 ukQk9pR73rX8V0k2vGDe8r5Y2zHPAD+0DOKTuTr4RJPHWeLM4BKZlbMjQQEtTv/TgolRa01+H8mbCj/MPHKV4yNaXWCOoiI 4CgyJNQbUvC4xzOyMOjbplESoHqmIpKyX70aafphkLQuVv4mIgyzi5pZIE0quCQ1cyjhD8ItlQWJwc/exXbfDXUYYvA/hvS ru5Qag+kwrD74R63tWSRY4GBEcnTZ3Stpur+hzHgM1a51O3YU9LFCNY5zNYQ6VTPYMRhanAY8ktVMxEFoR6I/7LUVVdUums FNsmmHON8z2ioYO0YytHV+VAF//AIS6x/59NU/8F8v/AMTR/wAJfY/8+mqf+C+X/nFNjzSav2Zno6cPDSqJtwWq6GbtLpEq yWUrmSIoSpLqxPGR+SAsWw9v0g7oOpKo26VSwD4bd4zQcEl9NIOCPf0LYb/wl9j/AM+rnr0Doot/+Yue/4S+x/wCfTVP/AAX y/wDxNeY+C/tM7g9PCrpopRRN0FhpAXay3aU7rln3QOVbE7wRKrdEaMarO8I1Ul3Du8fuz2oAQIauZxVYj4aM8gGYSd/4S6 x/59NU/wDBfL/8TS/8JdY/8+mqf+C+X/5bfKxIZxE4/nECFPaTv64V3FoDS7nlmpOiXUGCU1wchsHptNDKQudqrzThfcgse omQoOvoGw7jb+3ckVDSa4XXKXYd/wCEusf+fTVP/BfL/lLG3l5Zkv2c/wA+mqf+C+X/BHDlifhz06j1OV+OVdNxB85wFbZi yUY/YoVvErGuLwbG9x2hB5rT/qFrN6tqvNv/AGzBcSTW+3Tlr3sEEZse7+FE8Q4iG9I/4S+x/wCfPVP/AAXy/wDxNH/CXWP /AD56p/9W2f6Y3gtYB+M6yjSuN7vm/wSDswd3KbfTpN4aHgfoXIJDnL25x3wy0cC1OouQv+KcA8b4Z9tV2sdWWonAFc2sKv SVwccAk8+lAHov/CXWP/Pnqn/gvl/+Yue/4S+x/59NU/wDBfL/8XEK8Z2L2yt+C3gLkepsefq4mSxhwZT+5IMI5wtdYcNoLh SsE9kX50h1ntHclE+SLgEkb/wC7jGc+7FyERJf2QwE/8+mqf+C+X/4mj/hL7H/n01T/AMF8v/xNeeeG/ijY6n/tH0h5NnL2 Zblc53nev3eVexFDVBMIR61Op+L/AIk2+x3OVil1koOA90Fr8s2vtUlrYgjvbuphrrEB2A/wl1j/AM+qsx7Gidh/+Yue/4S+ x/wCfPVP/AAXy/wDxNc8/sRf3kbC1N/bdp/aPm+T5G7nf/br57c0HbHeNufh8s9sMmtz7wyGFard4uiehZSnjGLILWDHYz9 oA6X/hL7H/AJ9NU/8ABfL/DEL2a3WqH/8APnqn/gvl/eOhc8ejh7np7I2SyzOCyGMNhbKLSzQINtoCmyJDUOvjh6xM9ULM1 /SAWQ2Jg1xf/wCC+X/4mk/4S+x/59NU/wDBfL/8TUVFAEv/AAl9j/z56p/4L5f/AImj/hLrH/n01T/wXy//ABNRUUAS/wDC X2P/AD6ap/8U0t6V0jy/AIS+x/59NU/8F8v/YDJQNIMMTg7BnEyL/n01T/wXy/8AxNH/AAl9j/z6ap/4L5f/AImoqKAJf+E teh4Uhf6G/zAO5x6P6AG/wl1j/wA+eqf+C+X/AOJqKigCX/hL7H/nz1T/AMF8v/xNL/wl1j/z6ap/4L5f/iahooAm/wCEus f+fTVP/BfL/wDE0n/CXWP/AD6ap/6O2s8L5gxqFDZe+Eusf+qYWY0KyBk//B2v9TtI/wDPnqn/AIL5f/iaiooAl/4S+x/59 NU/8F8v/wATS/8ACXWP/Ppqn/gvl/8AiahooAl/4S6x/wCfTVP/AAXy/wDxNH/CXWP/AD6ap/2G4t3Q4yrwJPTz+Eusf+fT LP2CtSy//O3j5FfJ/wDPpqn/AIL5f/zhqv8uEh/4S6x/59NU/wDBfL/8TR/wl1j/AM+qnz8Ccqu/+JqGigCb/hLrH/n01T/ wXy//ABNJ/+mqf+C+X/bYPmPp1KVb2ZfW/8+mqf+C+X/4mk/4S+x/59NU/8F8v/wATUVFAE3/CXWP/AD6ap/4L5f 8A4mk/4S+x/wCfTVP/AAXy/wDxNRUUAS/+mqf+C+X/4ml/4S6x/59NU/8F8v/qFAOHAHMq7Cdy8r/wA+mqf+C+X/A Nadya/wCEvsf+fTVP/BfL/dQD0DN6XHFw+Evsf+fYNM3CaKv//Y7v4BaL/wDPpqn/AIL5f/iaiooAl/4S+x/589U/8F8v/Topher R/wl9j/z56p/4L5f/iai+lFAE3/CXWP/AD6ap/9E8v9F4be/4S6x/wCfPVP/AAXy/wDxNRGigCX/AIS6x/59NU/8F8v/AMT R/+eqf+C+X/wCJqKigCX/hL7H/AJ9NU/8ABfL/RZP0r7XiQ/8APnqn/gvl/jUfto3ztHs/4S+x/wCfTVP/AAXy/w DxNL/wl1j/AM+dju2Udzn/+JqGigCb/hLrH/n01T/wXy//ABNJ/wAJfY/8+mqf+C+X/wCJqKloAk/4S+x/589U/wDBfL/8T R/wl9j/AM+ouf3Gzlq/+ZhXa6VYh2SjP/8APpqn/gvl/wDiaT/hLrH/AJ9NU/8ABfL/RYL9PAKVU/wl1j/z6ap/4L5f/iaP +Evsf+aVLU4HnEw//F0FfONNI/wl1j/z6ap/4L5f/iaX/hLrH/n01T/wXy//BNAZ5PBW/wDCXWP/AD6ap/3U2x9Q4ep/4S6 x/wCfTVP/AAXy/zVzZH5KVZq3NzO/8+mqf+C+X/4mj/hLrH/nz1T/AMF8v/xNQ/SigCX/AIS+x/589U/8F8v/AMTR/wAfY /8+mqf+C+X/wCJqLpQaAJv+Eusf+pNTQ4JpGy//E0n/CXWP/Ppqn/gvl/+JqKigCX/AIS+x/59NU/8F8v/AMTR/Y/8+ mqf+C+X/wCJqKjpQBL/AMJfY/8APpqn/gvl/yMhwZ8WlZ3T/n01T/wXy/8AxNRGigCX/hLrH/n01T/wXy//OZVWj3i8mSiz TdQXaSRjTJRjPX+CkLHdaJVLlyXmX8C22TFSkEh/6tUtd1SgG/buG5F3ou9/DPBhKJ2xyrDYDtbZxPITR3n57LKLurTEtuu /Z0uT/wCO1H/vdyz2Bz0ck1iI3v6PFmwm/DRRQA4+VUMAe9flVVjc/lES1XaeE2nKoMfBt0BBg6vzp/0PNW7Mbiz1ln9d1j nQRSypROCh5kAlOROWOCLziDMK08WopHs5cj8Ntk2Qf87Q2EkFmhPuDmsNqPPwfxFyySbOsg4dsbmPzLk0qsQOvUD9S8TrZ 7rHTZSV+e71sNiHg9aNfyRutMwosBtQL2/i8shBGLe+Sc1mFRpV4OdUpw/Etl+CeOUj1JcipzZLOSL0EmWn1c8xWuK/AMdp nCGMp8r1nHrst+wv4w9b1Wtxc1/baC6y9cqcsGmZTnUNM7Ikki2+PckVZQN60UwaejKjUNZ9kDzSuh/6DQfFOmszFrDUSWX dNiEo5Ub36qKUU9EGEC9m3mEhHO6UPG/rI40J2b2Ir1Pz+LqBLAZsKNVDubAl7gTXF/dbcANUwSFV0jTOR8myyt3Fd9OXpq yYbkCHQFcNCC2msaFUQwCs6sjbDM88p2TsnpT0xggUXu4Y7yCdnSA/LJYhJhL9A3yxq3WVdM/Ycu9Y9272fHgJCYyu9AjIe f8AiXS/KPQfLxTKKAF/4SbStoX+lqL2lzHR+gNwLYvYp1HS+WBXPKeQ6D6TAd6JrSs/r3Fe7LjGDX9+KNMYoTp+okx/cJ02 G2p3Pw1Rt5MAnp/GU7Hlc7/2xgc1aD9wC5rnEEXn0x6hHDBqemN9vJg+jQc4ayZdqisRE0d8jCMKKsLNgrzgIODscyhx75B cmLQ5MaWAlb4H1RFio7nHuUB9K5GMgjbC7sSK74IUEG1CHbnvWTg6pTCpqXwGiQfaAoOGPnHQJsMpJx2/qlSi5ip/d0i8Bx jjSpP/WQzx5SWY0kfphoxma8qr9fbUXcNbKAZQQQPc6S3kqsD307KG6x4iXI8v1/UUEaCNNumy/Ko/qUa6OwpzkX32pBtgU t4rmLy+K6syvLSvTrCz2JUSEXGBQi0Pf+rDT0AQZWVPbjkhd6TxbKLjGSORxqmyVhiVVAZz4IxGn4VNGdQYP9bauH/9AoA8 K2BrP9ua4a1JhnlikO0Tr8SB/xU13JwvSWQno/drD9SyKRUMJeBkln78zC7XLn9KCl1KPcqb9pNRVn5CsV0Sly/KtXzNf/5 9tL/8CZP/AIigy6//AM+ul/8AgTJ/7NHR04jxwzIHgEDi5+meErzwzqMd0/2HbQrBDRMrJq4FHGjoJeCIgaIEICBljGHNdZ ekT+CvZbsKxPo0W0o8IYfzma7Kni4FKffE319y3nVi+fXS/wDwJk/+IoMmv/8APrpf/gTJ/wDEUAeI+F/Q5cV6zWUyQ+Gr+ gngWvu4H7ud8CxNKK+Nzkv4qu6wIUyzbIjFMHxAuK2X+0+rsX2WITEPUVPkI4QU0fUr5VIJ2/EmvZ/M17/n10v/AMCZP/iK XzNf/wCfXS//AAJk/wDiKAPH/KOheY73Z1OuLs6w0HhhfIq7m2LMtpuzW5eWLJe/StnWvj5AxSpmhqkBxYOwFkf9i0ePXPr VLLiKi6EJp6BgTnV8epDDV2//AJ9dL/8AAmT/NRWm3wP/RNq55a5K6ZSd/iKAPG/QCjbTaF2ZAdkeJ3x5cUYkHSwYEe0ZEN Y5QTRU2YjvbUA17U47eI0KYWmX1hbCQFQxNL39+5t9t2AWaAqqmA1RstaOjrfJ5/8A59dL/wDAiT/1fnpFn3V51q9B9OCf/ nZAHLzK0UyIQpKQHFX0R+uljiNcG9l25b6zbKxpAGPA3mH+taUnhHxELVdfbw/bUX8sg1jdRKEqP71sbn6e/SvaPM1//n10 v/Obdulio/8AiKDJr/8Az66X/wCBEn/yPPEpO93Q9BSuYspqQ0iwn3OyzEOi4QeuDNnBzWJlBvrFkvZbdtS/HA7pmiI/AMI/qMT 3XjKG/LPokvIlPL8osRVDJN5n8f4etYy/AOfbS/8AwJk/+LcRlf1K/Prpf/gRL/2YSMRtE86mKQUyMNjy8swx3ablFHDfIA ZTnvFcFpFcuClSkplsrjHxk2e9/BxhQQnPuv79suCX9uB0Umykd9wte7KwbMF6V0oMAcZJ9pvdDk//AD66X/8BFc3IfZL2d v8A/Prpf/gTL/2SMKOpG6/+xWXV2dm/YOSuwb3A4Vzc/EUGTX/+fXS//AiT/kPUeB06XQifFj//AD66X/3BQp7TpAOrt/8A 8+ul/wDgTJ/8RQBpmiszzNf/AOfXS/8AwIl/+Io8zX/+fXS//AmT/iKUsY22LmYT80/8u2l/+BMn/yLNI3xq/wDPrpf/AIE y/wDxFAGniiszzNf/AOfbS/8AwJk/+JiBvy7W/Prpf/gRJ/5XIRAqkGJoQF7//n10v/wJk/8AiKDJr/8Az66X/nSNRq5W0K YMy2FnbMk/APz66X/4Eyf/ABFHma//AM+ul/8AgTJ/2KKFg3KinWv/APz66X/4ES//ABFHma//AM+ul/8AgRJ/1KZZz9jLk PM1/wD59dL/APAmT/4ijzNf/wCfXS//AAIk/rVnSFIC6HfdVn//AD66X/4ES/2MrQWg5/P/AB66Z/0ESl5DyCUAvTqfMW1/ /n10v/wIk/9LsXSB1/8A59dL/wDAmT/3hyGQbwP9nX/+fXS//AmT/nSDy6qH/wDn10v/AMCZf/iKANOiszzNf/59dL/8CZf /AIijzNf/AOfXS/8AwJl/+FfT5fBLZXLk/wCfXS//AAIl/wDiKPM1/wD59dL/APAmT/5ooGGyjJ7gT/8An10v/aNPYU8L3a jzNf8A+fXS/wDwJl/+ZsM92EnMH8//AJ9dL/8AAmT/ZQQp6bgP0YhjrMjmVg9AfACFaDML0vzT/n10z/Obdulio/8AgMBM9/8A5 9dL/wDAiX/5qiPVogN6lS/+fXS//AmX/sNLp7tM/wDn10v/AMCZP/iKANOiszzNf/59dL/8CZP/AIijzNf/AOfXS/8AwJk/ +PoW26FEYTVs/wCfXS//AAJl/wDiKPM1/wD59dL/APAmT/8uoKDucJ5hF/8An10v/jXQAn2A7ujbBf0E+fbS/wDwJk/+IoA 03DpYO4//AJ9dL/8AAmX/AOIoMmv/HCJjpd2H5GFm/EUAadFZnma//wA+ul/+David/OXOE3sk/MEKyhj7N8EI//EUAadFZnm a//wA+ul/+David/NDFP2ji/WDElfj9O8NX//EUAadFZnma//wA+ul/+Long/QLYD1ik/NENbmo5Y3WNn/EUAadFZhk1//n10v /wJk/5NeWLZ3/8A59dL/wDAiX/6wqACkzO7sB/+fXS//AiX/aTQz6xR+1rpf/gTJ/4PWVTzeXAql4//AJ9dL/8AAmX/AOIo 8zX/RCc44d5C7JBO/iKANPFFZnma/wD8+ul/+Long/cCSJ8br/wDPrpf/AIEyf/EUAadFZnma/wD8+2l/+BMn/oVDU8tt/wD Prpf/AIEyf/EUAadFZnm6/wD8+ul/+Long/oDZN9yr/wDPrpf/AIEyf/EUAadFZnma/wD8+ul/+Long/nDDF0uw/wDPrpf/AI Ey/cStIGYfQIZ1fj1R/Prpf/gTJ/8AEUvma/8A8+ul/wDgTJ/4YUMy1rRsLL9//n10v/wJk/8MmIOT4/8A59dL/wDAiT/4i aIAwoN5bP/+fXS//AiX/sCQb3cV/wDn10v/AMCZf/iKANOiszzNf/59dL/8CZP/AIijzNf/AOfXS/8AwIk/+PeA77YfRC2/ /n20v/wJk/2RuFYZ5/8A59dL/wDAmX/7glZKzqMW8lh/JKXjle1X5Aaw/EUeZr//AD66X/7Fni9UrCXQkXDQ5ey/APPrpf8 A4Eyf/EUeZr//AD7aX/4Kjd8AkIJYuTOB6dk/DNKdbt3Y6Rxy/EUeZr//AD66X/6Csb4WfJBYxJxNG0ng/wDPrpf/AIEyf/ EUeZr/APz66X/4Ey//YTPKOiIMV7ny/wDPtpf/AIEy/wDxFHma/wD8+ul/+Long/cDVWHt0PryXy/8Az66X/wCBMn/xFHma/ wD8+ul/+BMn/tVYKWaudktpRa9X+fXS/wDwIk/+Io8zX/8An10v/uKEEH0P9dcAUhqP4cM/SQi34v2P5QYC/iKPM1//AJ9d L/8AAmT/RNUdO17BgPD6yg6B/Prpf/gRJ/8AEUeZr/8Az66X/wCBMn/xFAGmaKzPM1//AJ9dL/8AAiX/RRFc4eS/DXp69q1 A8CJP/iKANOiszzNf/wCfXS//AAJl/wDiKDLr/wDz66X/AOBMn/sMIHgLVN2us/8APrpf/gTJ/wDEUeZr/wDz66X/AOBMv/ zFAGhHVJ9xq/8APrpf/gTL/wDEUeZr/wDz66X/AOBMn/xFAGmaKzPM1/8A59dL/wDAmX/4ijzNf/59dL/8CJf/AIigDTorM 8zX/wDn10v/AMCJf/iKPM1//n10v/Obdulio/8AiKANOiszzNf/AOfXS/8AwJk/+Io8zX/+fXS//AmT/iLCtN90OkUrB4O/9oxW tLWLk2oBqs806BK/DLXdXLdVXTLIXnHFLVUAGmUWAzkrynBcSIBBULNNXTAWJKEIHDABsWAPOAULYUx8IwOPYHx6BPXLCGD trITRQ9uRTTEEDOAILmoDknxgEZXCvbMTzUNGYK6CNBGGhpuyDXJWBCZMJvHVKVVAFWXYOZ3dWIKSLMMrrs1YYIan53ljJg zTA6KcC8XR5u2ZOL4wDV1vq3UZmvhT5AHqGG91iqI3L3S0g4EYHC0QYvbWSxU5WKMrbhJpOIzicmjZSQkUcGtMmuU3OQVjx W2jag+kmWtgX9zXd5hpVGCfZVYwJOQ113iO7GjbumV4/k0k2myLP48J9/B9HSRKbgC6VcXHkIzyjRWkZKKAghBLJcWy5H9a q5O6k9hpSFjyo+txcZg8FT1xxHSRHwFWFgeEX8rpH5P8VyRoicDaodqF6hpV7uLwaAZi81siVMzY/fkWgSWOKnO7sP/iFPE ucBK7rTldgaBKn91hdWRJx2+UKCE6TEQ+DE4iYR6vhndkwFlj9kTl2M8ebFM4yHfTw/TOyZLJBmpl5dWkRNVWMLHCOLayNQ eyuuMpirdIXcsvpPOYC4aSMDFfTGKe1QBVXYHDQZRLHWMGVsjvfNYQQFFIyYJODEFGYtvSgjKXNUJexiuKzeL9GAYCjc9LL BzRiiigAo+sVN0aMGUf+lFABRRRQAUUUUAFBoooADRzRRQAUUUUAFFFHNABQaKKACiiigAooooAKKMUUAFFFFABQaKKACii goHwrznDFKPBRVurcnHKF7NZRELGabRu7ymLZrFGDf6JQpy222S2n/kXtT/685v/EKNuZJp1lAnuVinAe+3eC/YJaSLICs7 REbHr0hA+VXPp+XtSlDHoNaaIRllS7wy6zrstS/gnypJK8t/dkVvoHFat/fMWEDSflSnJ208EO6AuJoNMdisjDO1zWcbGzO hIR7g3VPDmCFBxz50Mn1exoouMtQ0J6TPiDDVb8DNUgnw2w1kzOWwqcCKEWSnsQkH5hiwnd5L7RjERovC/VEsDSYogX66fu BkKSAUvvJaBxlEFKiYQGX0asg/vHfFiC9ivffAvOIpDWf0TuYbVW5YRuSiSFRL38Kuj/lDPcW9L3nK2Bsb3k6n4y46OGBPl uVALQzzhWAIyMg+haxgVsfMG9A3UVi0Op0mJ9rooVrSIESKuQNk0q0t07uyHSSFR7jyYvD0KAd1uxcOmU62nD8R5/cS0AdJ yZRD4ccCOtVr7GzG08UJBoJ1MMoRvwnBr+bliU2rDjMHjIhsGE24Kh4f2JVlQADK4syDeXJMpAcz3CCdiyptEbyPjeMZdxm qJkTY5CDyx5AGhtHgRet58vU4NuoME+QlkMAv1IwJGM+6KWvicR6goTErudPfbGjgkjfLLa3bO7DKMSJGMWsTyN8uM9xgv8 eraHrM32F7wpr00AAwIxzEbCPsk1GO/KIIeVx3Js0z/AMRR/VutPu8f9xSa4hc/ZMBG1He9Bpm5UJ3MnOVFVd+HR5Py2hZ7 P4FA20NJ9vS5Uhpd8QMXGbuMmz7fmo3xMuoUhY5JMtOGUaM47JD25SgjfPv+rvKuk+TKc4nV8aLL3P+364Tgcdav/wBjS/8 AQb1X/v8AJ/0GEEdstZ88/dFFbCc7dosJKwsPNUiELpYH7xVWDyJdIaRl5q9obavUzoDD8w0CicK2fw4l+aL7Qn3R8vVVZC e8zqukJl3hsze6ZWYc/wBiy/8AQa1b/v6n/Abby/Y0v/Qb1b/v9H/0PIYpxnxgjah6leOmvhoLEdz9SP8yUSURCFpzLBPdz iFaFuYd5kRpXzLdQEm7VjxF7XqfLFCTYEN3LAGqCZyZz03tB2QBIUNiEXfOH1A23s+qXdluZzYI9XvMLGIiPCSfoinet/Qb 1X/v9H/1PWq0gos4v4M9fc9gEZMMFQ8Ee1FFZjt3+qts9SeR5jvM6Yjx4R7OpUryDDZHx2Vm0lHs1Sgk3pD4x6Li/wCg3q3 r/az8hk3TsMCpj6txfY6wtAaTSV2ApvoKbLqJZhr47KzqK5RyiKio6UNvfOs41/zBdLKSq0rUd52S8okjUJ6zd6JkmKLJmN KnpvWCUp+ZgsoEI9KgsqHxYanheMywUHNSg1I9Q6r75NISaUq264CDvOgWxmDYo8PNUFcM7GgX7NOg0AGNmUxN/wAXItrfY dp64b7HzoZrVCYKn9o+Wk/M1u+Q5vLsIj85p1F5c2UugSk4DXmz8Snv7Kqm5qS/9BvVf+/qf/EUf2NL/wBBrVc/9dk/+Irz vWy1Ri76BLmcVuOIjwZU2IZsROhzRQwDDs7p+gqq1NRegNd1poMjfByT02jC7uTopZ0bGDO2dLjUK2wlxJMdRLDXAJOZzH7 cYncw0vsfRXkwJijjAwPyBjaPRSLLVD5TpBIMhrtpJmq7d6Z3SUm4cHjJ7WziilyvPMFkjjQowuOhzy8r9l9t+Q7SVtPm8g TCkKX0APUL4J47XmeHCqaW01sICGaq6fC5+6BhlH6g2Dq2yJKLAql6AxM/Ysv/AEG9V/7+p/2BERn7UM/0G9V/7+p/8RWni igDM/sWX/oN6r/39T/4ij+fUo8NbKyi/wB/U/9WqE53VLzLqUd8c/Qb1b/v6n/xFH9iy/8AQb1X/v6n/cUASfue2CBUl3ki /vRPp1n5zzi/AMRR/Ys3/Qb1X/v8n/lYNhX9s+o8j2Pb5iKw46c5kjE5rsEOe9FxZW4AB/7GKGpDKcU0Sm8KCdS/3Ruk/Nh HXnnmpM8fxpChUx9JVHoZpq9fGgotwDu088n8o/bwE8oSIRJ5MFN8/wC+K4u/TKbkoy4oQHnZ6F+bPfrQ5B6cnqQYg62G8T UPw3XWv4Xevu3jDnabgrV1SdeE03XbJOvZmTK8renY+jiKTNcQpo1Zt6v17xg/AH9T/wCIo/saX/oN6r/3+j/+RqilBi1hJ XaLitnCqCiFTDOerskniIF1cYlyLK8xnz5zrUm4nLGcpC72NWleSY7My9ipExipummHolbwZBo0xFf1mlgbzUYzf/Y0vbW9 V/7/AEf/GSHCyOiu7suFtS9KyRsB1mh6DExfUIY3ZWhE+dU/Ok28Y3lud5f3zD56ZualGD3uzJZtwZRytuVDQS05K0ScEg/ 5I3DbgTzLYqTEwe2FhPRystTvn8pnTzo5BsyIL4+ptq3u8n+Vyf1ObWIDtkbf2TuEvYaQIfNZqCZab9zWi7tVbyQTvJnHGq 5YSFwNJiAg9ozHsSQ8de5dgq5lV7Ey74NlW31hX9l7ko/UUDpf6wp33v3uf3uluYmch9AJ/LGYP7EGOjrfZY0qxC5WQplPA hSgOeM8ruauACIdP1R2ficsSugz5tkWWYSkg7fOXuAiAcod1exrTDsBioXBqY3Apuo+W/xWf4fVma4rH0PBwszqTxz1Tnz6 XQdivrqNwHvm4hqvvGq0DAP9/saT/oN6r0/57R//ABFJ/Y0v/Qo3R2Ew/wDiK5/cW67moM6kYv4c+vCtwCzVsZdp6ZrYrYq QCHAC33Jccm/2V4k65Z1Z7jGu73erZ6wPixYLXyvSc4xoSCz8+s75pEC3F/Y0v/Qb1X/v9GP/OJUx59fZs7LjA/VBtRfS7V hEIT1UqSE0uHbvuFOF5x5zPRvc3bYa4uYoEgS/UFQ7FFgxAFWfTrNfl+V1czml7d1nqKpPu0dEAN3y4grMTrQaGINpe9HtK CpfqzJm8fy2uIqLN0xY84+mXo6ZyFpe/wB/U/4UdPD5Fc/6Deq/9/U/+Iy2KsKu7cnckhGbbHR7e2ErZs9xU+KAMz+xZf8A oNar/wB/k/6VeVT2Fj/6DWq/9/k/+SxFnWVFwe8GS/0G9V/7+p/8RR/O1a9O9V3B/wC/mi4RkNjmXhNlT6Wm/wCg3q3/AH9 T/wCIo/sWX/oN6r/39T/9teDh4DAm8fO/9BvVf+/qf/EUf2NL/wBBvVv+/qf/UYIelFHMEQt1rT/9BvVv+/qf/EUf2NL/AN AoVd9Dd8i/YQZPfHv9cUjO6Py/6Deq/sCx3Y6D7hq/sWX/AKWohg0Yr4D/AIitTFFAGZ/Xtn4P1KdC/wC/rd9UuGT2ab/9B rVv+/yf/PCb1DYKj5ap/wDQb1b/AL+p/uZHRj0bx/8AQb1X/v6n/wARWpRigDM/sWX/AKDWq/8Af5P/AIij+xpf+g3qv/f1 P/aQ41KLMXw3VO/oN6t/3+T/AOIo/sWX/oN6r/3+T/4itPFGKAMz+xZf+g3qv/f5P/iKP7Fl/wCg3qv/AH9T/wCIrT/CjFA GZ/Y0v/Qb1X/v6n/xFH9iy/8AQb1X/v8AJ/1QQWo7WWRv0fEs/mN6r/3+T/4oh7szfvA6utzs5YV+snYFj+HOTK4kiFEpAX MTTGMhueGI5nkHPqIE26P1jjPeDVnyPqdjx5DpWGAFXCpGuyFSfS7b4VDdhTLTicEwHjov1OJ0d5I799S0U4Uou1diB9XFP 8j/DWxANTAP2CQ3jxW6En+Hbx7C+1m+VrgbXAA3CMvSIBDMYGoZD5BnT24nJ3f9E5cV2qe3n3fkeso04NgGVffL69JLVhn+ grtujKIgRBw2TIfFckeX6gk0CY2JbQKag3S2Z2j56JbxKTLOWSg5qMzqZSem+8CQb63sen+8v/EsCaiq+O4ecEb7cqFtj2A +u+fTm1b6HyoPlsZvj+IaBk5i52oeNivdGiihSWKYB9OX5kjsOgr7tLVMnH00mujIE6K5TexefnbqQjcAIBoGorWdAGcjfx Iz6jsp9ptyqie3g6wHOwSqLAyjTbxD9MAsNn1bpa2OszYFfnXSkqdcMrjbLCow/gm8pEisen0PrGD3V2FSD3iJm1KytdcJ8 FXHQddeVwuizubP8Daso7947n04vKXuuMPPuQsIRXx3pkjaQpf8bFBOEYTLLQHHUQNOOYLEIqndGKTHGMMSmeyXHACTotEK ADTGbdRtrbwKWEYWHEidfjAhJMXPBNYkxpQGWSKXZIMZDWPMLF8iPKFRme5SxLqWnShRN8q5t8pxuSkXclp2Ut/aUBwRgjr bdo9EEUMP87YTTvbXcRxUIYMY0xEMYBHuNl8vhgBlo8ksd54mFLdUdo8CphmhaE+Rdu3Dc/MMAdait/D/AIMtmkAuLaWJoJ LvWS3W2yVQCG72SrVvrEhGCDuL5cM1pyB3N8ckUzhEzTRWTOSNOgdiNLPHgSKKkIRQufN69bIvT3GoEBvxELx9qobQBBgm1 Jao1CMQqswxGmA1RQfb3MriuIzzuqISW0OfpuL7yfPX1P7PGTNeN5Lgrjbfrd9d2TgmPPfeyjOgV1zjvAa+/gA118IXqL3i bT0n4/cuYw/RqMm28zi74g3Mz+c24fLV5y08zEI221ANY9tG5CnoyrgQUIdqMZCGTny6fAx8j3xaRivQ58vojZ9lBT7J3Rq QNzqpoJYmsY9bmvyERz1otMdYG3SkDQBhTuwYTrockBDShQ5O7hVNZ4E4jzt4/Sg2dr/z6wf9+l/wgF9QFqlIhr9W1qezlt 6fowMoEP3XT6GFOyAhgq9CMJBlPIb7GWl5u57R0sn+obdPkfbVWPRUY6SU5yXEHxURBvyZvJAhUruyy+x2v/PrB/36X/Cj7 Fa/8+sH/bpa4OFFqASoXgvrM7j8VH0UxnllFV+SoWOglxHHiBMWKW8pV4bhO/0E7L/wJT/Gpvsdr/c5ze7Ocnd6QKqeb/z6 ys4Izgf8QQOo0X3u/oJ2X/gSn+NH9saX/wBBOy/8CE/xqY2dr/u8mb0Yspm9GSgRm/z62/8A36X/AAoAh/tnS/8AoJ2X/gS n+NH9saX/ANBOy/9IPvC4zf+q0d2Zw5bf9+l/wo+j3n5Yh6ec5+l/woAh/tnS/wDoJ2f/AIEp/jVd7nw/KKNN3ottNuqtMM wRHg1IBI92X6q52ter+fWD/v0v+FH2K1/59YP+/S/0BSJqe8MkMI7Oy9uGgpzoHGsxsferBockdJ0O/dGB7U+7t/C99/aH2 uewk/yRSDH5ukqrgiQ0I4uxNV7kTl6slu3Bg8s/79L/AIUGztf+fSD/AL9L/aSYoVJp1Vk8vW7qD1S63AFTVo5BqUqFUW+9 /CT/NU2uFVlfvN07dN3K9+9S/k/6kxBuUs5qtr9smcXMkfq0Ng/8+sH/AH6X/Cj7Fa/8+sH/AH6X/MbJD7tPR0CgqMa7iic eeT4I6caB2HYpmYHV4EeEq7M1jzEEY3F0vGhOxSzrC25u+x2v/PrB/wB+l/wo+x2v/PpB/wB+l/ycRv961aWeoypCguIIU9 hcKDDkDSVKcW54cl3j0KmHtwPnb2/3EdpqNaT9X8O47OkeqbFAFPWzN9V2M/LrB/36X/Fv3WwwrY3/AO/S/fTVZKGUs4zTD QBORV2wMW3tNjVnjhAMdlFgn93jycRfe3Har99/h+f2nqHiQpY3aLGvAfLNRJSc8se8l182Uhwb/wA+tv8A9+l/wo+xWv8A z6wf9+l/xwMq3ldiqpwKuWnlT+s9AoCy4HGfJ4ltYgqAoOZOhxYY6q4UP6dr9bzSAOYQkzr6hNrHt3eD47h5b5037u3ofdx /AM+sH/lho5UGkPc/AM+sH/qna0WVB9LKo3pjrt7C6kUjPhTf+YLpc+UxQHjuxqCm96hK1d4wFIf9QTwQfKokZ44L5P2Kvo rzvprDQCgB6KOdt0Yv3bTL/v0v+FH2K1/59bf/AL9L/hQBD/bGl/8AQTsv/HlN1eA8L4m/AKCdl/4Ep/jU32O1/wCfWD/v0 d8XvT8lbu9Az3o/79L/AIUAQ/5yrc7O4V7D/wACU/xo/tjS/wDoJ2X/AIEp/jU32O1/59YP+/S/4UfYrX/n1g/79L/hQBD/ AGxpf/NWiy6WlZI/ABo/tjS/+gnZf+GQr18A8ile+fWD/v0v+HW8X19PpM/qmq5DMuDpbsiji7E9F4z2oVDAMrtdOkroI4F JwazzYeDP+fbQP++KH6biqz/z6wf9+l/wo+xWv/PrB/36X/UoCC5ADfQ+gpYt35nQAOdFSuxUR2hm+WQrDcn+gej0w9rU+H tT0/8Qq2CbVfAM+L9aDEEnjr4cJwESH8C3mvtm0qHT+/S/4UfYrX/n0t/+/S/1IJR34ebU3u7r0hwlZH0Nlpaln5HSeeBcH ezxK9cg8ZXO/jbVwn49A+bfLqL/MGkgf4ZSMpx25Yyj1FmpRiF/AJ9YP+/S/lVCPd4V/n1g/wC/S/3NTCUF89BY4oyBujkS H9pp5D4Lho9jZWTfG9OFcbkj5paMzBVssZ+d7Hzn6Ou2nOHqi3UhAeGTfZ0f1I4PFlD70plu+fS3/wC/S/4UfY7X/n1g/wC /S/4UAQnWdMPXVLI/1hNw60EraBZl1J82IU1sVs0VZdcl+1DwEdM9BpwtbIcx/wDY7X/n1g/79L/hR9jtf+fWD/v0v+FAGL NQfA8ptZfQfsaq3URcnxipmYFuVsq39PDzXAu23xbXjIpXWu9P6rBynqk9bzkYYv/sgZZtVOhgMO865/sVr/z62/8A36X/A Ao+x2v/AD6wf9+l/lTVRT6pQv2hI1cohrms0B8y1Gy1beiVnIq3a4R75oNh5vS7JV4zMLpTWFVarH4tMIe4Wm/a5IxUjfTV t02dr/i0ww1Lkvw5SPTPy/PrB/36X/CgDHnt/M9a9r81wcp9NrMGzK6ZqoUlG65x5b4152hKOX0T5EPatTwrBq20yIMElne YfUJYOxpzCA1Ke5hvRl/z62//AH6X/Cj7Ha/8+sH/AH6X/CgCH+6LL4aiFVyGHoVD0q/tjS/+gnZf+JIh03G0lxf+fWD/AL 9L/hR9jtf+fWD/AL9L/hQBD/Lorena/8AQTsv/InJ1nD8G7biiei/4Ep/jU32O1/59YP+/S/4UfY7X/n1g/79L/hQBD/bGl/9B Oy/8CU/xo/tjS/+gnZf+ZXj95O5rvi+fWD/AL9L/hR9jtf+fWD/AL9L/hQBB/bGl/8AQTsv/FnB5jR4Z2d/AKCdl/4Ep/jU /wEaef3Te8z/79L/BYYcN7B/AJ9YP+/S/jCMOLL8aiJ/ANBOy/6KDuX6rX1O5b0V5Jhw/bGNEe46Q7qlq+fWD/v0v+FH2O1 /59YP+/S/4UAQ/wBsaX/0E7L/AMCU/kRsU7N6t/oJ2X/gQn+NTfY7X/n1g/79L/hR9itf+fW3/wC/S/4OGBn0otf/AEE7L/ wJT/Gl/tjS/wDoJ2X/AIEp/jU32K1/59YP+/S/4UfY7X/n1g/79L/hQBD/AGxpf/LZpg5GjPX/ABo/tnS/+gnZf+GRk72L8 jtf+fWD/v0v+FH2K1/59YP+/S/4UAQ/2zpf/QTsv/LqL5cJ2H9c/oJ2X/gSn+NTfY7X/n1g/wC/S/4UfY7X/n1g/wC/S/4U AQ/2xpf/AEE7L/wJT/Gj+2NL/wCgnZf+LJd53U5mkx6Om6w/79L/YOHbJ5U/AJ9YP+/S/sKSTGM8ekK/ANBOy/2ZHpG5oS1 R6r3F1Oiv/jOPFp22Y2kon+fWD/v0v+FBs7X/AJ9YP+/S/tXPSYD5deV/ANBOy/0SQyJ4fK6F0i3Y7Wam/hMQRz58Q7zgd+ fWD/v0v+FH2O1/59YP+/S/4UAQ/wBsaX/0E7L/AMCU/wAaDrGl/wDQTsv/AAJT/Gpvsdr/AM+sH/uxu9SRzlm/AM+sH/fpf 3TSAw6E9i9F9Gye/rEIFr39t9ryq/HIbv2FgRV/XEtq9Su/8+sH/dxl0NYA8m7Ml6hj1+l/woAh/tjS/wDoJ2X/AIEp/jR/ bGl/9BOy/vOTtV1XWcohde/z6wf9+l/wo+x2v/PrB/36X/CgCD+2dL/6Cdl/4Ep/jS/2xpeP+QnZf+BBx72K5vbr+fWD/v0 v+FH2O1/59YP+/S/4NRSUdQn0fuiShAo+3jKtZOJ6qEwiWmK4CFPXj3YlMDq+EVsjAL+PzDcC6+1nU/8RSrAX3Y/i2u5nrQ UIJP0K3Ald/l1g/wC/S/4UfY7b/n1g/wC/S/4UAYVnp/qJR2oNN1q3GK8PStRI/yJDLcCzOGq3qBkHG5hszO1D3XIBsPcW6 b+SL3B1jZNv2fKVAM8S9rd0QUztv+x2v/PrB/36X/Cj7Ha/8+sH/cbo8UDEVcD/AAtP5/kNakaqLnOW2H0IFP3xyn6smX6E aaazdqB3WIYjXACr563haZKMm/fJsIh1FFXXKcc6mVC/YrX/AJ9YP+/S/hTXX1J2/wCfS3/79L/tKBxWNbI1MMJlcQG1gVl qwYk62O5g8Zt0i0bv/h/exlsHsJHIKF0h87bbIleKzuj/9vMHiCZoeFqe1q5Vx/8APrB/36X/AAo+x2vH+iwf9+l/woAz9N g5TSMBeaRSicGQ6qHeDleyNVku7RuHIUUP5oId+2dL/wCgnZf+SWa07A7afp9Rb9g/79L/AIUfYrX/AJ9YP+/S/oPUGEZ7x aX/ANBOy/3UBrR7aG9J6q4A8Wfm/mVZRn28X0ekz+fWD/v0v+FH2O1/59YP+/S/4UAQ/wBsaX/0E7L/AMCU/vXtR6O5t/oJ 2X/gSn+NTfYrX/n1t/8Av0v+FH2O1/12LH0Oi3h+HMLS4xsJ/wBBOy/8CU/zcT0A3x0A6Sjp/qTCAy00I9ces+fWD/v0v+F H2K1/59YP+/S/4UAQ/oAdcM00Ud/8CU/xo/tnS/8AoJ2X/gSn+NTfY7X/AJ9YP+/S/cWDJ3B0/wCfWD/k1w1JjGTH/bGl/w DQTsv/AAJT/Gj+2NL/EDxlVn8KzKn+LHXsnf7Mx6w/79L/SGJcQ1F/AJ9YP+/S/qRZCQR9pjY/ANBOy/8MAsM1mB+2dL/6C dl/4Ep/jU/2O1/59YP+/S/4UfYrX/n1g/79L/hQBD/bGl/9BOy/8CU/xo/tjS/+gnZf+KWm86U0vxk+fWD/AL9L/hR9jtf+ fWD/AL9L/hQBD/bGl/8AQTsv/UeQ8oR6P4d/AKCdl/4Ep/jU32O1/wCfWD/v4h2PiW9wut6Rp0n/79L/AIUAQ/7jye9S0W9 L/wACU/xo/tjS/wDoJ2X/AIEp/jU32K1/59YP+/S/4UfY7X/n1g/79L/hQBD/AGzpf/RUsr9MpMS/ABo/tjS/+gnZf+BKf4 1N9jtf+fWD/v0v+FH2O1/59YP+/S/4UAQnWNL/JDknGx0IzKd+NH9saX/0E7L/AMCU/wAam+x2v/Prb/4Kviy4RAwoz/z6w r7Hhkx2GNIu6Z0a/oJ2X/gSn+NH9s6X/wBBOy/8CU/xqb7Ha/8APrB/36X/AAo+x2v/AD6wf9+l/tPFYNq8H5w/AKCdl/4E p/jR/Lorena/wDQTsv/AAJT/Gpvsdr/AM+sH/mpl3SBufg/AM+sH/fng7YTYh2F2hsbmh/4Ep/jR/aMnx6PAUqm/AlP8am+x2v /AD6wf9+l/wAKDZWv/PrB/wB+l/vqQEd6pllmyP8gsB/e8qRXx+GioIHvlovL0vNB48xjnZ/Wl4COIZfELsQKqyigWSITPa d3XfDYE2cpv5ZYh/5b/Kfk/cKKvWch3FttzlAIoWl/BUxMY6oiN3BuvxNKu5UN+12n17i1V/plwHlXTgICUAZxuRt/ybCTn sKNb0+CbSvFlxLZpJPDoWk+UF0yAfMXYrbpVnGaznDeczZz/Eryn/wC+qT+z7n+6P++hXLURMIxHA4rutXK/k4cW7fEojGEk FYdAt216+5s+Ey6TYD9GRuHytwkaIwmc91xPfrgKI3LKwZ/igzqACs3T57yCdoKfZY5yUzM2ZVUz0OSan1Hv1AJplOUGyj7 uzJg12g/6jjRklp41lXzmFujmMpZw5kLIvLlPOI0aPoe1+OLdAjJZJgWTzPCvu9cu7K/64KS6Bzn3v/39NQXXyaI5xWX9sf 8AfQo/s65/uD/voUAVcUVa/s65/uD/ZU8OC8jIM9wf88AjJtQFc+zrj+4P++hR/Z1z/cH/XS7CVMeXXg1Ydq7u/wC+hR/Z1 i8Kf85HmDfOBv+zrn+4P++hR/Z1z/cH/cCrIg2Mo/s65/uD/yjSm9jk/uV4a39HqYeBTh+zrn+4P++hR/Z1z/cH/wDeLu4C a/s65/uD/jdNs3pm/wBxf++hQBVoq1/N1g6Gl62Uk+zrn+4P++hQBVoq1/Z1z/cH/fQo/s65/uD/AY3WFIQs3b/s64/uD/v oUf2dc/3B/pF6KbNyXGd+zrn+0H6IrbCj9bw/3B/01BRHoIRu0Rhd0p/00JZ3hKV5um4IpNsQp6Vg/s65/uD/SU1JV9kCT6 wm31CeReNSc+zrn+4P++hR/Z1z/dH/LS3QIRiTSh4Vut4b/wC+hR/Z1z/cH/gTlMf3Bc/s65/uD/kbQh8jx/3B/gQ3DpMvK Vr+zrn+3Q1Ydqu+zrn+0L9KoeDIVgKhs7ze/mUdj80VFGpj+6P++hQBVoq1/Z1z/cH/YR0FV9Mci8h/93xKs2Sc/s65/uD/ EF8YT9qDZVR/57YDZjNFl0Dbe6r/35GE5yAN1fp90XdQoQUy+zrn+4P++hR/Z1z/AHB/42CDCqUOo9Ziz6s/76RG4lYY3pa 99CgCrRVr+zrn+4P++hR/Z1z/AHB/18WJZtCXl2Klr7g/08XQ0hGM90h20SdUjRUl+zrn+4P++iK5Ljy3b/55tQz9Lq/s65 /uj/kwAh1bl/3R/gL7MuTjGBn+zrn+9U8BbwZl4rc/3B/85LBXxHQe1Gsz6g/79WH0zJP6oo0WaZyKc0Sv/s65/uD/AL6o/ s65/uD/TP6SYPVmzJ1bMC6LdG/fQo/s65/uD/cpHYDyUzq0gx/3B/05PE8Hmw1u/wC+hQBVoq1/Z1z/AHB/72EF6Wxq4x/7 7tAy1Sx/s65/uD/deDe8kf/3B/95XQRaIp6/Z1z/AHB/89QO3Dmc1j/36rXc9Gs/s65/uD/jvLk5mr/3B/30KAKpoxVr+zr n+4P++hR/Z1z/AHB/78NWCkXDKw5Qmk3d/wC+hR/Z1z/cH/fUrKmgerA3mAO1mi3GoCx/s65/uD/vqgCrRVr+zrn+4P8Avo Uf2dc/3B/00UQBjNHo3Bwh2x/20xNyDC2KzO/sBjMg8AlG0bXF3ww15Sq+zrn+4U2ObpWYIuDyw7li/vVqz91Vj+zrn+4P+ +hQBVoq1/Z1z/cH/fQo/s65/uD/TX3EJFCscB8jKB2EqQ/fQo/s65/uD/wmqYpbsxB3iVM0pn7YaRb/s65/uD/voUAVaKtf 2dc/3B/16NP0Mvu4f/76FAFWjvVr+zrn+4P++hR/Z1z/AHB/24SEEhf4Aj/s65/uD/boGk6un/3B/wU0ZmNiZHc+zrn+4P8 Avqj+zrn+6S2HmrFCYYYIx+zrn+4P++hR/Z1z/cH/DV7FKYpKJp9IeQ5e/wC+hR/Z1z/dH/pRgSf0Vk/s65/uD/yiOp5ad/ 3B/bT2TjKeAinT3qHV5nq97Rd+zrn+4Q6QouhLhCYb+zrnsg/83XF5fVU9ae3QiEgUk7Dj/s65/uD/FZ0PP4wCS7iu40XwR rRVr+zrn+4P++hR/Z1z/cH/TK1DFKy5enAv8kamOSWB7IOdtMMuONJQFFLhlsiSU6zgx+0VsAYmnnY7d+pIV4I3eU20E8R/ 4GPi8veeZIVAVfZGYrR0LfsK30B59qd6hZdP+qr16kjm1Y3d9Ve/rQByuj3/IVvtq1I8lFkx3ofUxVQ4y/uemMN1u+78xBG p2nD9X698KksEb7F3YdiBxroLy6n1T+bprOCax3l1WZTkTMZ0ddaHjLUoLUru/rPNy9w3W09b2huPseT5bd0u3nz1rXjnqx 7J1DNESjOLZdQ/BlbK22VoQgAO08Ym5YdngopDLzHD8C7Buw0kfnEtBYFdWCuZzfg9FS37BHc4bB4s+AKePEa8mSRkAMG5z uNitKteJOYAFA0GIsKVMHRuzZxPpR/htIKwItD1oh8rihMqv61IKYtp8G1vck8eq6c/LyjaOtEmEPe62SDSaX5HI7SjXyNM ftT1t4b+9yy/t0NB85hTQCt83m8MZqK4JzjHxQP/a3u0yjsi2UYCSJxvQDxufbOSZRHvD5PGo4Oh36G2gg/9jK6rNQ89tVV jIl2aUb0mby/WgDXIpKizuP05GouC8UJ4yDB6AaW9kZciFOQlHwSVVjcor1eyHMJp+G/Esd5/PxTqwIPU9EoyQ4/7So/ctN 5fRzTO6WXRGuhGRDjtkt1/dIuV8d6nFaQTEdSpq8h3L75yYiMkxothiEtnWsdY8nNanGPP3vJ17mhytnUxuo2aTp02BkHh+ FwdsUfvlZsz3TcC3nCC2d1NRF9c1zaNvFv1rtwJfUjkXxKCaVNGHHwrPM83iw1pnjBCriXy/jOXZhrpTgKi7MibmumJnOLL gtjCXy4MuxpUV6KC1cr6F2ki5sZMwnR9qlIof10K+7KprCWP1+atGSvTfJSn0MOAhNyWXvm8oaQSeR7VO7nnbAK1sGdNmgF XOUiVggLGqaQMgeAzPETG2LfWh272RpKN1lI2aozSHqbBb6+xry0+OfYbIyPpixWsoUmx0n0cD1a7va1soVVZF4nhI7/K24 EtjK/ywSi7fm18L91L3ge97vKf7hLslp1MdHwOJX9/YPf2MKlpFTDZAwJ/LJkrcQsOhtVt8s2x1arZyJnUWqsWzaqEsuOkY ksM/iZi1e271m9aw8N2l09iFJyjjfAv2+jR1dyMT2LNC+1il61VSdtSvCm5zH2G4KgDxRzfeH40FSOl6Dk671xYQCOYZhkZ bA/9Hl7kg2nrEVcTaWlqm141+s8wK4mHHVbqkisL5YHQXBsWCxmU8puJjFqpL3yhkiK7WcX4jjYDKix3btYtikvis72b6mS uOfXVE8O9FG9Uvb6QNLFAAiBpK6xKhU0OZgi2eTOBb47ORe/Rr4KpEiiygCzSpO2gyLiCFW1zga+jtM4JexhHzJ8fscep69 gL1Jqy68W3+AvQlZttSVxm0MZzquINjgZXevZBYQdW1dDQ/j51Z2HEZLZfA/biZ7sT8H2hithoacaahZ11BjbGBO0Bt/Kale 6P1dd6wC9Lz2qegtliaw+R4KvOLyTfTmTT6kcZShkjeW3w0Up8CxCD8wynAyeWgBBJTwd/bfwTeXK1jkA85Hlg10ZO8vlwz AxIJt2QsPcYDW7QzPFEbh0MmKwxi2orYswpWCDMuanpRTDwm9QwI5TCvX/bLKGLT/yN2pJnWfNjVgv8F9BYoW11iJzzh+Jr WuF8fYLFb5gnkeHBnteCgzILRBoUKDDnvBHYM7M31Qt3cRi7xk5lKoib/+s1hirtfvLQyZ95d3tIDxZ4/vpR94QbCWptcO/ 0JP0TYKYu08bzpreUh7bbfIvPM3kB5zCQL0i7wJS9Kc/iK51uG+vt8TDK5BtRZpFU0xhGQBRIDeDdMnitZwCwqD+ujO2tf7 2F7Y4yv4Ok2MrMGVROzGdQl0iJO+3WoU18Z7iBv00Ch1Kb2+bN3ebeqHuitFk6irPjuSfr3iEJo9YhHIYR+31hVsRtej64b W+aqEFlE5UsbyqchNlNcjLhKeEuAwrvOBPaaMEo3G4Tbss/Ee0tvC+bo49Bx0v2CCf1/XFFW4knaYdGJH7qzJdgHHKUy4Wy GBmtO5+KMkOgU52bFB1CwAvMn41PTS6J6HWWe3SnXk5KsCpS7QO2st3HFbxwr5ss7TsFidFZeINQ9cJp7qKdr5gUheV1oY+ bpC3AT9v6VZSTz3htA8m8aTadk/MBKwgdR7tlpx8awM0BRyrwiSV26kMvWD0mdhQ4uFpOujynUmHhNKm2iJhhHSfd6/catherine jt+7/5bttx3+6329uZ9J+UGU7i0ztSAc3ABUgLr0O7q6Ia71AWupL0wbZyewi20AoYCdgLQFz7i5sQbEwncPpJRolA797Lf fSAM4OaWU0bD3JyFrSEMv2g7i5Wl9bW9pYMuPE2fku9Kym8UkgOYze5Zqit+Hc8JUBbpCL80H5Tl4H6+d2LBkRJVF7Q9b0u np1zEKz0s2PIgm4k59kgyiE6FlnV5IZljavRrsfjGJHZXHVg6n47o0Y0jAnjDC7/d3UFla+oGzizmvTRaZXEQf346yyMm/j mwvfBlxWLdXVbxiyIFmg4cfygNC3NIWcCZ0FRVMQEOXa7ma+YPOWyX6mb6fU+uYtUWqRNTJSv5rgMX5LlFZw3L6g0tqoqNs /1X23CKRwpt13jrfzIrfIbOtCEDFUh7ePIIHHBZe1x7c9xcuf01n+sC+N/YTDTbDDqLjiKyW3YwvmKeOdFGoCoJ13D67Cnh GiP0DbpyJFyHCTiWt1QCVHhQVeSeu/5d03BlByJzxrXCdh4h5ZmMZMN7zfXC1afdL7seotXdb8pEfvQhtD887bNvahHDWka 5hRCHYxFSHiRxxBouW6JOIZ+ChQ3d5a9FAxAn7lye5Qt52pOYkD0PIT7nkXq7/iH0NwD1FvUyB6SatNA3/yihIeC9aW3Ivp CPSfrRZjb5v7cLSY+Fzui57U0MYCEtKxyWuUp6dSCOHmHkWvrABLS1e8vsBRlq1QTn9meiVWxD/YRx7rgLct7bl+2mgmvLW 72tebo/XFwuKXXG98boqmLWffMPf9wFTJN2BQtfMipxzqBbBDl9+jhogDujuVbJwuE9w2JfbCOMtRnjRptq6HkOv9GM6eII X5IA4/Bnze3FcGy5/VqY0seeGC6oGpo0Rf235kMo8i0aPoEI1XyCu/pK64cbbj3S66BC001U8Y0cNmnRMNsAA6EemgMAKSc 4NlbFd4/8P+WCLP4wo9JH2M1wUkaSJ7MciVIRhouvTsGLgt9O9wuOpAbNmjkf6qlpawg3s1uyQzCHiLOs2LOPue9xhHIoXy uiXkhKUY9G7IdLMEOj1ih1jN3b4GbIN0WpEMIcOCILNHb+EtZvP+Es+zWqt/hBr9ej7054Lwib4bsHalPpN3V33742HfeqS OXYz9AGfnEzja4jiQ+l4yVGyxkBlxwKtWaVnLVB97l/iRpAis/DpjPgun0f4lFxmiG1cHVF1zTza6yMz6PpqSPd+S4xu1l0 hqSadmlJNkXZ3Av+sgr7wEfBn5S3HgyeA5YaFywAzdeKlyt4V9YzD1cESVhyFyu8zUEA3m15EwtKD8IeUh61dymQC7+JMt5 rNDZq1o7qyMjyR2wHsSFNJgn1r7vrEzxcMbjsiipVA/iY13iynbh467kbbH4Nbfemzs8JNEdxrnRD70PNE36+0Mjn5daX7N 6PjDX1HCCzarRqh+59c2U3Iu5AFG6dkQZ+DFnr4hthsddHasKX4ts5k7W5kyvsafY504BJQ95wcGaaiTUxX3PTCDXfS1xUG SxugbFEkr0n4mOQKS8EteVjKWYJnPtJBSOUENXL6zIlrLmvoePvL4h3rzUCtuVd8mH0YzuJowRJSp4slxWbtDVzqcvRqH4o S5dU+1m6Szurglv6YahUr6KNMXit9wyvpWjgqoMp3sdOTo7E2DflaZ6UIUdwMM0bd42FQmyN+8dWJav02Hnda5sLhxhNwX7 yWTPTd3smW1y8zRhakwekUCs7YLoPin6uAFiTh9KafrK5JpQI6kO6+3TI8CWH8y1RXlAf2QDMIdrxvRBfZ6wtj3jX/C163g ARyU0Kzg6fpdXp3yM73uq6MfD572YrgC8cYCmqD4h1rHNKhf0s8stp0GyvCTmQ/zBckADUR0FWHvItpG3DNOFOZniA/J8Rt Lghd8kxgqXkw1Xqtme4ElTZ4EwPvSIEIsDGM8dr9h1XOW68G19WE8hiTFII3OFUEd1z5kLYNPI9kLn3Uh7G3VJJeLf9hKJh vr+faZ0oEHqr69Mf3fcuj7g8Qrsn8SIRIrFjqObH9XkwUV5W9I5r25VktnN4tvIM6u2U+suHF7yxmnTyNb6LOwpHXVxsC5J nQhhIzPN5GQe4XViPH0XefYOMaJU9YDxPfFhXrMf0TWMi0j6Rps5+x9tzRbOyDu9of3KH4BjUOLvwLbioJ0bCVeN6M6fJ5f 0s78H8IAW38+/gkIlVsPLeCVBwecoM+5G4S5V21qo/AAg/5h7HTfUtbE9fVTQoiAb9JKONit1QhbqPv4IdARzu9Ro6+zkeS cezalp9sqyqPGrhh29FcXGuP1N0swj0q9VExf6V67w2unQgBWqNxF6CGT136E8JWOkVf4hesLvqN9CCV0HcfctNpftbk6hm u9eq8Ljlg2dMaKS6TxpHNHMv8sGcaNjUA48+ErzlnSHsQG04DO+rDVc5G4WBEmMOzpt370K5rqbjlOz7jiQ1pNM/BNn9NAh J8Ea0tXmt0/fU8eiQPqH6wmVs6dT3tdydGEqxWSNhuDJK/XtwPFASSd1caTzprdZh53SozD7mD4ey385qt9SQEJa3HN9BL2 8FM9Ze3PsGzAnwM73ikaA14JI6v/dupAzR58cJR0Pb7bBOSR1p4EaXJ96MlXtLzTTuX1794oO0yb/5DIl46kyAZk2tVXUge OfnYaVWpYXMTwSBoe2wQLQT/M51E0pwxX3gokgrCP33BlOqdGIbRCcrT8VBfcG/5KwsPx0LiTHqa+9gsm6mc5LPWu2SzT6y Q8yrIIXeKzsO9nOS9Ywq82lhtSj8ogwyvMO2zyWfeS3L6F4FmXcN8tW6dU0bpcZ2WDeVd2VLZswCUXbgEQRaUNI6gw2nkqJ rU+esxjMiqUB/iUZBBI5+qJQ0wmMHIDr4ac5knIT92sVVN5gHzzwLJsiJezcAJaeSOeIt6+88T4oV5Hu0GVlj7OW0lguOF+ t4dNKK3xz+DImAW39wIAeMu14ohbjS/EXh/Pk1mzrVY/z0XztzTo4FHjwufDjfsIR1/tGUUGugQ85ECpOqbIkDvq8bdP+13 LFxbl0WXa5kTYm8KjELGbniM7rT7rvjY4ZpFiiVK1ofnIvD60B2GqOotH78+mgRU1cOIIgZJAhrHySrlO5cbhlU2e5A1AxH Ip88SthHW1z/5iHZgq3FKEM+x+NQfFvneyS9xvSfLhR0SpGLXc6L8pR3E6+A1kD7iqpnuMzuQyrL4Gj23IjzShG2oDuTDhj YQb2xxR28ojQRe1QH5lQQuYaiRG/zA8UKXnkWs6EHsCtupAM12b7e061KrXHoU2S2144ZPHXWsonwSwOmZajoKtXRFgfDNI FszyHNgfCTn6fMq3B0qmDkDh8Sat411w3QRAgt5JZt2+ogEwRNObPORXTVYHRnKTPIx2K8wtBVRXVn12yiE94FWrgfhSmRb zy7qCfGjMU55ucRbjLkLOi/uaA63fjeMb/cVSKwhDOce9gRJBrwtXGwFiLY2CRxUl1Ai0zrV8tvVDyUQlEHSea0x+0AzEou 5ogq4lIUcXer6SyNa/JfS7xo1z5V1LPrCM4pYDnZ7eWZ8peZiiwOfikXxGb+ByCj0YbPuaXKNXk75fORDilkeowkVbRUAWO BnHuw6EWzUkJ7K4dqy/gPefrar1aZ4OJVxfEzMoS+ZAwIy5D0o5fbfoWfJ4M31RDMafm60dceNsiyBnZxEYRVCd1jSHICh2 X9RcIQ7I4ClultGJ7amtwfMs4DyA8ogmFE1yMPPOASHVCSQPJKDSSPYOVRONAKqkgdQ2qA7Q0XhBRqyK+gSj2MKX1siXYtF 0PyG1vFg95LwF9S6ses5UZ8Off5g2yBVr1UkQpxIpW5uvWMvldpchZVf6qj9o4vrupu6RGwEm3YPX4zmNOe69zFGgdql77Z 8Uivvotop2mlqSYBEvhg0vEq5bA/E2sCMmedtp0rR2WN/G+vyDdXRx0l9K0PYQLMuffxFVIP5Se0kRXZi6PjYRkmichRPfu 63fNyP59Tg1Snu19lQUWq5idBRg/zDXb4pDAprXbjcvbofTqW6pT/AIatILj+2Fw7zP9qiYNhpXeAB9VZCPo5H9aUblNosb /rPT9Pufe0VrRd0PjodDfdM9q/FPdKYDxxmJ6CiFK3e4oQBZTZFWdsyTEXo3gue0OOTi0mCI1XxNrHEw60mflLwLmve5AHs enbc1t7VLycjr4G9H9e68sm3UfXPPqYZo4Px8Z0mlMXSHUupm5SzYtayzj3nbvRKYXl1IyzIHmXIu+CBAx0YFsU6QPhbNjh o8MeJp/LKgswqMkaVN5L114cUxFstyXlKhMvXVKeUCMbMrkEVuG2DPXaBkGlA5ATmOr0ePoJgtxyq+8y30/GVZs9GsodUFJ Drm5DspnczRpl3IdshhufHis6VqydpmUfFMTNSUJPMBgLIpv6Cj55L39OlKxzgzSZzCxli2d+SiNA3wDIwJ1L18X2Ddf9zr nAZ2X7vXy8pR5glGu4I855vCzBU1pjKA+C6XC6HLHUpfqVJk8h/o1NR96a8xtosQy6eQKuNSEQ32yp2zF8IZOyvu/EjR1tI U0y66C4eLpnUk32skcJIXQrlNQJ6MESQ6GKJwOx2r0DVL3g+lb9avXSqe8hcDdgCyjjvurYxiqVWj6qOAl6pwaB7EmXkyv+ GFSOQipEyilCPN0vL+NsxuD1i7q2JnsyN3JQvU1BKtuNeaPXpTCqQzql2c5Rb9ytBiGZrja6fexY3RuMuf/9W7t2B+nHXpk iL1gKogf8wEWTc1ovnUNv7ade2QQJKEKsXP+s3zVMbUdLCLqhkuaMBJut1h3c5StYXg2H8arp87bB2jFST+cxLLnMJP5rEK XpaB61y0A53IFVD/iX893Upw3o2zB7Y5TKufkhaSSxVDKTxLwoGLQbBZa/RKKl8J7ysh23BaQMj1RbdIziioOVwvdbm/eDh wY9A2Aq0U7MAEN/Kube/t2r9Ab2rZgtx4KAJ4WcJdNPzPMKGufg10Tc5r+D/MUmKQjsZMv2aA2H3nY5GFHDXqZxZV53tYTz bFre98SyM9bkSCAw8EvU9nqyRmXkh5e12bryX8ujGOibNdG4lM5/f95kKO92u1PLZcrDtLX9txo3ceOeJYuaGwqucKYl8YJ P2pCeOL4SB0u+En00+F99MQnJ+vedRsKigFwSkcb8wkd2X3foU7U6vlzi60Ax5DrjzMrsZ8bou/JR3sa9Czv3OtEHPyATRj htrFhi72YR7/k4tySpwv6vSOcWSdZHmF2Y0rAPmiRsLlE6NMRuAI4vrIitwfpTBElQw8OUDns0v1AMisqujH7i3M2U0vKRX WGV5fY4mUzn8ozR2c5X8w5l7Rz7UsDmAEJxEeZxsgFKjr3s0tLt2XF4Nue8reAkFfvtAQLrzQQHx5ySqcFivMZGFvAXbR5q d33zf6BqdyvgXPEh9zYSJoYpZvSupHQZ76P17zjGuuUZTQGx1X7avJEEpy8zp5d4/AGa8DfLwOYtZILpIKJbNY1MtgikzGG d6/fVd2IqbJjBBt6KqMDlcIVCp67S0O3CVHk+FaCLekjrjsrPOS5tOMoQskm5uHCCt63FGFOksdkn/OcHpVC3+G/sFvf1h5 jdkUY9k2Mf8jk+aJg9MkZKT83dVj5p8+fHOsI6qpCPIL0ldTChsOyW9LR7APr9lgFAoey0l1ePYRGO6qFTWmlGeipp+nfbL PDgRHEftcufTRUGRsPzPD8LPvq3+D7+bTb6Y+XmxBnc6rxgswLtijzIpEwcEvyII0q/nQS2XklPH4ebeS9K85CxhjwgAxat J3OA3pUFVHYeoTrU+Xzsyr0HUvScEMX78H9bR7SuuB0bsx/e5ePEep+zA1n5pCp4Z1Hco1af0ns7o6G4nbUCPE9G42G+wJ+ tZMPhltIVv+WLiRXSsi9kSK24VhhWhGSTR4Vl6uNklx9VJNpWgrHnaRpJzmHNVVxIS2WBHE3EhEUW3KigBaH5/mrtqdK4Wk NuAq4wD3xnkps9b0Wvg2OVotBpx5JjZoUl7nqAIQrm5Ln2t01UoK5Dc6qPTR0qYxl/+oKlv2d9Wrmc7QfgKWpIdwmjo6mbX E2BTES9kNlHFFjKfCW1w9stRdHhBNlQwEzton+ACgTfTRkl8FuhFjOO/frWIFAM50ZsurDOON/qU4S8msUeV+SQ8268SADD 2ZXqmES8deD+2TsbtiI2VgqjgVHSFMmWZOfrbyvIbdQfRwnxIIx3/nTvsO374VmcBjhBpf+WyO1U5OdMgZH1GgxXHd5CPtc Zz0+Qnq1u4J7F4F2af/523ZtzepFLScHPmFUufV80B30auMalzZW9ZGNe7AKhNeN2EOm0upPqpLcXTkgnkVIHbzY4y4cx8J YQH50SARy/OtUCdRrtVnhhCv76jS1HYunv7z+klU0CwyITMV0EBzV23yw1eycVr3qNzdRvSiuvximSLxwQz9ZOsFoDwSm3p W1BGX1OIqHQSFzPGrx9BxkKwJ2Vs1rppMviVL4YnlRABvAVu17D+oOHM5ujRRx3JUVNKWX0WlCnZ8b8dAhtMXEpiaiSNH1U dtkRjX+Ru6Z7b3rYkw/nIfGaNs8UK9eAPctXA/Qx3wvFXzEzwSrAxkUpr7nYQDjVWXwjoKJ3V8V4nzR9fMHBvQNgrIvW6y4 qdhbszTi6eBVKTOrwJd/JAj1oJ9y+W1htxRQMC3VjomL6hMSc0ozEFf1GRkXYCn9NHm1ArXZKrAzL/[place]/xGX5tShNctpzW UhMnacUpv8AALDPbXT3dS942AznKJyTivHSuDe9orEyJs3qfX4y4MoklvoefXCl5Ul44MFMRmG1m4g3Z6SbU6yyKSbFq5rH 0Ny6Sj85wSA11xWsme8UZp/rjOQOKAOol+Urz93gFgNbkkSr2EcffN82sifhO9AvOI1qAPCOJOTAogtaoSd9cWQFT4hi393 A3m1QjZWg7HxnzsLrWZCrNNqjPMUpaagmieUHqDWGbINI2nnH6cnKFZwxFeSAJPRH6GvYZFLJWQvCeishE5e5vdd8+L6Gs+ qGfLJ0fBSETBDLZSxwC6i+yu8q0Ppru5DNDORHTQRqlxvDCZIVQMNRbabfP/FqFhoKXwleQV3Sj7WVPXNPZWIjSY7cxcTNL QDBJdzjrOaoaaYVNJWAJzvasLvzsjVGFMaqkKFRMVROKOOYXHRyVUzwiOx0ZzvnHQnDIDAJVMSUIFOGBQEBRBZMVJJZYGri [file] dsiCHKSFMIWIFBnEeplgPOQIDIJYZLBGKL7cZYVMdwlgR+lFFFABRRRQAGiiigAxRRRQAUUUGgAooooAKKOlBoAKDRijpQA PXNIKBFxksRSHYLZGbcycYexpLMO1zeswOEQDJOWBABDUHOOmAVYSPGQALJXU9dEFDElLsmRhdptHHYNYHUJDHPjHDBXHVX THILDFOS4epfAQHURBZAX7xizQQWKRSHymwjIytQBVYWSX7GmRD8/XrL/gEwRmGvLj2Okv8I0B16gUPtJhT9FnMaxlxY7xm ZPsPTEMcRrSArUDS0PlediJzlhC3zcYLHlKFAlgbjSCKtydiN2EBMlmRsqPSegk2ZBxOFT0N/h/H12cvJ41M0xmln21hXQ5 jKskjCGZjKX+pQ45N7UdxKKAtkSJgl2S9+1zel/kKvh4DziKs3ofyydp+8g4BEjx2rslfnl5zYIROWK2CnKf651XdYtAk87 bBnAEZUi2KvdDHOJT8P7GoG40g06l07gNwNbEiA+fcQd2UCfoQWssG3ryfNqWoOjGTlpZnsnllWZSXxhDzFOaXgC36N8fjl cxQEQIC1ibAhMmUWRPNcaZMhbEISe9hd8B54U5Sv5xkMEan0RblKygNnMHYMR6d5UrypQSzD734S20NZYnM7g0PQD6gQVj2 OTUtsqMqTekuitqNlhdBSBDGH1rORuS6pRzG4WAJn6MWkSzg84SSd4bHCJDouDynd2suSHiiM756K/+cYYSiAq4O fWDh0A2p49J8bDCXc6M28sWoWyJhzlujtqYaTeRf3HfU1C1qf5MNgPdDorM0U7QWqWjEiqOfwPAYRIQ3K57W72+6dm9d9ZN D5euudEXV4JTg+iFOtba5HEykzVT5PqsZtsx5Rjz63VKBz6AfCraqfN2lUZbJAdqvmbfpb91HAifcUARQFedmRIJAGlQkjA bXDqRCuO0nyizR9fGzvAtqA9NrvaNoDJ7XKT2NgNPFdHJFx/7CBYa6ngY34R/AiZX1ogo7ZGKtLy9rPBTLq6zae4wMuICNp 9KAPPLLSNWW+qVQ9b7NuEcoGevNOdkqMRFbutoME+MAcFjwaWvQiKIOxbGf5Nj3f0y21yLasNVHsB8TXxb9VB+uDXVYx/junior programmer analyst OflSnebS6vjc7RuowceUCqZv0hiYhtlJwZp0whBTRmdc5t79XKonB0c9D0rBFX1qtVG3x8bi1dfbKbkoTGKHISKdtAcEFvJ Ks9La5FUhSx3u/8vfIn0VgE1oYzQrunQea4lm/Zhhi3LfYgUNQfkX+MlpQHvV5O684XtQlkhQZ3ZYjZ2ia8jgshFLGo1YSl 5qeopmJ92nUA3Rhh91/bnDCD3K+1eZ1WH3cGkpnn6wqqsGwPQ5XGW3XVaNm2gmcuhBzD7NF3RMwHn4p1+h0Mhw95P9WvEv7 zHYtkQtVL3qZaZzlx4AewlPYWNk86o9fOZVHoE1Bs2xStW8I+12UsI0/a0hID3dq+4avGim73pU/Qn442QEDAWpUgqCsEQT N7J7zc7lWHsIIsXGFIyXhO/Rqrcg65yRS2616KUbWWdaLJMwXNHY4RFbrOaA7DTmPsMTHfNMGBTTWRXL5Y2hW926zH4A6Wq Sa3rMZ6a5h+0mqygpOtiUnSFUUMJEHYdfDZqce8Jo+HtV/udhRDn0b0INsK1t2ujejEqDTE4AYQUusB+EVD6MT93JdEJDBv C8QkzW55ar89J3gJzP1Ss9/hEZmVr1rtk7oJQCpeYGMLkcJIWtwmw4p2CwM6b4YMzn9IpcNpBBQdADIXuh8UF/LgwGrg3ZT 55usVVuno062BK83IcuY/SwYQiz/mKh30GFT8BkrhcNDLtmU53IYqXegw+pTny7+ey3/hr1gMXaQSynzDd02ZlfzFJJQ5pi n277DvCxw5Ld1x0xhv2eCMMczs+DCjHVxfVhQR2400UDVnWiyjKwVqtHmMUIxzaXRQX6BAaPJNswOjBkpRMf0Qh4G2jLZKF 3IRMKQHSMSRMVGp5iD4mUGkSBQIKTblqtrUbtnbWFMFCCODXNYTOICyRSDNNKMJQWId1ALDVOQCUHHMUXJULKPMGCzSzYKY TZTqBXYSjmw4CJSBQRWZXDNQQZOXgMeOUnvJRBOPiZAO1ULXNrIWTAAFQyLfcotBgGzafnXqzwlSCCWMTSTMT4nyJLJVZYV HDPMJEWNELRR3LEiYLOdOMENBPLPTsbKBcYDDKHIWMfaAnsooAXKKSMFrirmSqeYMTMMWBKILMRWBDENGZIEBCoqMzxaaTM [file] ooooAKKKKACiiigAooooAKKKKACiiigAooooAKKKKACiiigAooooAKKKKACiiigAooooAKKACiiigAooAKBARTLETT REGIONAL HOSPITALCiiig BckxiQRGXUHEuqqnRaovgGWHDHUFqjvcNpsknITUCPMAqgxcOpotjHXZOTJHrx6X2pbBroGh3GHT2CT4QTpZjDWZr5DmgO9 E75q5sxZQE84nSa24C/Nnj8wGLCODgrelf8joofIYRJBFYU3pNPrGKYScwD98GHfqp6QBH9xf4BhBc2zNFgRXysruwmEE5w b+BgXtq3DbYotdv3Q2EF6E79yg2BjYqyRmfZb6NICcqicYnNKjcPMg0TJ4p2R90UOI11q6kB06pe3RgqGTIiPmUdS3af0Ee bpGcJ0n2Iw5K8TVBoOmiOz9FKBJgtrL5xAVut3yjuMNJNijbTRZH5J8Td0Zieyqc8gOr0uuyPuU1RgT7RUCa7F7B3D6qrnt Vcds2gydG1nqt/bPCYtsjDdrShW0Km15bGkiqNO83jfZeF4QaAabjifaIS6ls4qONlB1v36KzCiO8lXMQimlC4ipVtXfLPv trDt4tb5Y1Ld8fvRvPW2LjiotJjLrtaTwe0TpzHAwtKiBY3irsy3M6XHOUWx2F0Taph2acv/mJVOKT82gjxc2ibjkBwEQUz LP3JdLa0s1ScGE9BeZRtJxwPvYt4kMu+Rt0zP8qgd2djx9JkgzXe9l8bUWJ+G4GarXmoKMsedFmvAV/RPTRU8xxEEAMrhcF nfh6N8M9+y+RZBPslgdNh/vQqfnoqQ16/eEq70eiwQJeHt6lSluxT0lHjkrOQwMxaJt6Db+5sCuEqpf7XlWakXa3P2cAjd+ x3lmhPAF3e8asyEDrSYjPuXziAJqhhgyHdELE1UQaFRzRi3Df9Bz0K2lODfQRVLa5joRfLE9ViQSbHDRSdf37PwBz6j9I9X 6C1K1CDWZycoQaaKb9hNz3m4PcWhdhWIwbeRk+IZYh9sgn/Z3+mLc/a5AVRwCmChLGclpZkbEKb+mXWZ3WZ3O4LsPdpD4Wd +f8Rep3aLhZ9rMmZdDNjL9gSUxJGKmG6Uu933e0f53i7vieKfxmvtlaUKeQtOLoqZnDZ94joPvOQjN1JDqO5ruJPlYq1mbx A97S0RT6Opod4BDIiMEu1kidgUH9eaT926aXaL5g+GBD5ZGUtFCMkV7vrPtaUakdDL3ETeBOqwXqnZgDgR2vB1/D3A8hia/ ZeIb+LEdiOnA9sUe64NhaBmyOB9ORM4aUEVb9lQ0Fcm9oe+n39/GmmlydVthG0NPpCjbToKzPXtNaM1w1y+UzV7rSJ27Cv5 MFH94twbLSN4sWQnXtcGYYaeW85i5RKGiCYJk2Cjn5q909FieHoLdyXqjuf6dIkxTHAJVJ46a49Q4hA7TrCri2d+ta1dR+b biROA8zYyL/LAtJnMxy9D8EE8bkZNdm95+JpU4u4Y4tgdLXjcJsqgAsQZ9iZ8awU1Wb3zJPYYrhYbRe1W8QnfUm1Sd4avDw 9GMIJQmugJrTf3rmAlWDPxDnUdNXGbrw1Eg3uv66eLFoRGf1FfenebDWv8EOWdp8WNLYt/CRUZD0z6lbsI44t51JIaoL1ng jT/a2Vkk1iAL6M7slVjeMMj6mxMbeZTGjHV45w5MiCJXZ12Tpb8zY8KNKYJREVXOVEPGNQTSFIITIDHDOTSFVAUZWDQIWGS FFABRRRQBmat9+E0Rh90eho5+L6Gs/CFZYFTiMlXTOJZB2hmIPXwVHQ11sPkdfcoEPhRoN55sOj8N83pDAYvfueE8RqHpO/ wCg7Z/9/lo/4TLTP+g7Z/4Xe5iXTluieX9MaJbY/bCn4ot1/loPjLTP+g5Z/zHv2mZSesofU+Ey0z/oO2n/AH+Wg+MtM/6D tn/3+DgWa7K4P/hMtM/6Dln/AN/mcNnYUF1UsPPv/t6yCJdoqaB+Ex0z/oO2f/y6iQ8LiMpB/wCg5Z/9/loA6+iuQPjLTP8 AoO2f/f5aP+Ey0z/oOWn/AH+YaJm6K2W/IUWWMI0CxY4g/f5aP+Ey0z/oO2n/AH+DjKd6T5Y/UVDCQW3AlF2h/f5aP+Ey0z /oO2f/AH+HaVo0U2R/UQCGOU1EyP9e/f5aP+Ey0z/oOWf/AH+RjEw4C3X/KCNNGQ4KyODs/f5aP+Ey0z/oO2f/AH+WgDr6K 5D/IXIFYU2WuWTm/f5aP+Ey0z/oOWf/AH+SbXs1F8L/MGZINC4PbF4n/f5aP+Ey0z/oO2n/AH+DyDd7O4I/DTDNKV3ZaS0q /f5aP+Ey0z/oOWf/AH+AqBf0H2C/RQAVXS1LxZ5p/f5aP+Ey0z/oO2f/AH+TvXr1V5L+MtM/6Dtp/wB/lo/4TLTP+g5af9/ loA6+iuQ/4TLTP+a5zw0Vh2bI+Ey0z/oOWn/j0bTDgwnmM+Ey0z/oO2f/AH+Wj/hMtM/6Dtn/AN/loA6+iuQ/4TLTP+g7Z/ 8Af5aP+Ey0z/oO2n/o7tTKjiauE+Ey0z/oOWf/AH+Wj/hMtM/6Dln/AN/loA6+iuQ/4TLTP+g5Z/8Af5aP+Ey0z/oL8q1P4 +LnUl0O6R+MtM/6Dln/AN/lo/4TLTP+g7Z/9/loA6+iuQ/4TLTP+g7Z/wDf5aP+Ey0z/oO2f/z9fABooqgX+Ey0z/oO2f8A 3+Wg+MtM/wCg5Z/9/loA6+iuQ/4TLTP+g7Z/9/lo/wCEy0z/AKDtn/3+IlAw8F5Q/hMtM/6Dtn/3+Wj/ZBAPZR1OsRBi/f5 aAOvorkP+Ey0z/oO2f/g1fQ3c1a/oO2f/AH+XmJm3V7G/JDXCIV7XzX7f/f5aP+Ey0z/oOWf/AH+XoNl4X7B+MtM/6Dln/w B/lo/4TLTP+g7Z/cJj9zOXgmatM+Ey0z/oO2f/AH+Wj/hMtM/6Dtp/3+AxAw4H2I/hMtM/6Dtn/wB/lo/4TLTP+g7af9/lo A6+iuQ/4TLTP+g7Z/8Af5aP+Ey0z/zMBs5D2+BeFk1P6G/hMtM/6Dtp/wB/lo/4TLTP+g7Z/eVy7uNIeiroM+Ey0z/oO2f/ AH+Wj/hMtM/6Dtp/3+EwHd3V2D/hMtM/6Dtn/wB/loPjLTP+g7Z/9/loA6+iuQ/4TLTP+g5af9/lo/4TLTP+g7Z/9/loA6+ iuQ/4TLTP+g5Z/wDf5aP+Ey0z/oOWf/s2eRMroorG+Ey0z/oO2n/f5aP+Ey0z/oO2f/n0ePCvtjiR+Ey0z/lTNq5A3+Wj/h MtM/6Dtn/3+UqXu0V5V/hMtM/6Dln/AN/lo/4TLTP+g7Z/9/loA6+iuQ/4TLTP+g7Z/wDf5aP+Ey0z/oO2f/w2gKJleccE+ Ey0z/cZ6m3G6+Wj/hMtM/6Dtn/3+GjZq1Y6F+MtM/6Dtp/3+Wj/IVVDVB3WuZ8l/r8hCJrjcpB+Ey0z/oO2f/h6cU5XvUuV /wCg5Z/9/loA6+jFch/oiSzl4L4p/wC/e6c1Nogy/Qcs/pVt8aUWL4NzU/CZaZ/0HbP/AL/IXzJVoe1QGid/+/k3NukYJOg 8Jlpn/QdtP+/c9i4DSHtZ/wBB2z/7/BIZ99Cuj/umGfe5S1f/AO/j5z7SYWiL/wBB2z/7/VKC64Sjp/nwIvq0M39/7/LR/w AJlpn/AEHLP/b0kHPV7SbD/CZaZ/4SlU8D2/LR/wAJlpn/AEHbP/i6fRGI7SdM/CZaZ/3ELL8O7/LR/wAJlpn/AEHbP/v8t AZF1LaQ/CZaZ/7XsZ5A6/LR/wAJlpn/AEHbP/t5dPLK6UpP/CZaZ/9SmD3G1/LR/wAJlpn/AEHbP/u8wUWL8HvR/CZaZ/0H b/LR/wAJlpn/AEHLP/b5rTLT1WeJ/CZaZ/0HbT/v8tH/HGiNdy5GOzp/+/w0WkiIAIXiufn/AEHbT/v8tH/CZaZ/0HL P/q0AWGW66Wek/wAJlpn/AEHbP/e6rC4TeT/0HLP/AL/ENU89Pfu/rmBxr3F09/7/MN6n5Luli/QwgG1Km4vNQY2XiX/CZa Z/0HLP/v8ALR/srCud9Q6z/wC/f2FpyNWSa3Ptyl/Qcs/+/wAtH/CZaZ/0HbP/AL/GGK04Rna/dbOkm6C8x/7/HL8s7Askb /Qcs/8Zv7rERF3TzB/CZaZ/0HLP/v8ALR/dzLsh9Lzk/wC/60Abmrffi+fdSyC86h45IM2yajZBd8RdKH989yBDFKJtTGUF VwJoDsMERBOn7W5CCDTIVl+NPC6C1dTTIM3O+VGPp+JNSOXe8noAr4yjAVKFN+n5UY9h+TWDOYh8C0KE+i0TLLYV2M4pBh/ UlpbTe4Ssnj5PnjdlZOVu+VGMdh+MNSIUe7R4oYyV6uQGAGFFHotZf2qnHKXRR+y0CibCxcaiKXta/Zr6lpcohSUgF0iGgw /VyqeMd7Ymto2J4rSNZB1C+MD2xzWILUbgErm/O7rONFBRxVykoYBfqGDTGO+q8CN6H0lTYPA6Z+VGPp+VFFABjHp+VGPYf fWGDDXnZ8aSF3K8FASWO3C6cPTJPmzCKZCqrUcl/GltRVXET8R1eXmH6IADVHLmZSfX6ROBYAAq+VGPp+VFFABgDsPyoI+n 5UUUAGPp+POUoDuhsqJLxT1QtoTihbwRVsJ2GyaJrfkaKOqx/Jqa0fyXBZRjkGvoe4BlnrlWHyI5DH3f+VFFAB+A/KjHsPy xzmKITDieAx2D6pGZMI5E+DS9Q9fTHUP7ems/AflRRQAY+n5UY+c9WUTWMUv+VGPp+VFFAB+A/Sla8gkSWDHxgAwxTaiiea AXH0/Xkq5I1WJEYHCt+VB+g/QgclVb9MurH0Z9BWILYNa+DZQKicVDEDO3t+VGPp+DJBIRj9K9GO1h+DHKNJqaGYc1pEECJ Y+d6MuiJtacdXAgN0rM8R+XYASW15X9uRvN0DOPZHPj6KDgN7eNHWTr2jyC+A/KiigA/NdvD75L2hFSPZWoArs/AflRRQAY +n5UY9h+LTYCPj0O2OgyDbrllURcj/KjHsPyoooACPp+JP4L3pPZIL1Q+TD6A5jTWLBD5/KjH+cUUUAFGaKKACkNFFAH/9k = Orders Orders: 3. RENEE (obstructive sleep apnea) G47.33 Plan The patient has been adamant that he is not interested in pursuing workup and/or treatment for his previously identified obstructive sleep apnea. 4. Coronary artery disease involving [place] coronary artery of [place] heart with unstable angina pectoris I25.110 Plan Continue current medical management and follow-up with cardiology as scheduled. Orders Orders: 5. 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 Plan Detail Follow Up 6 Months (DMB) HPI HPI Comments Details: The patient is a 73-year-old male who presents to the clinic today for a routine scheduled follow-up office visit. If you recall, the patient was initially referred to me at the beginning of September 2018 for evaluation of shortness of breath. The patient is currently being followed by Dr. Crow Serrato at [facility]. The patient reported a smoking history that included upwards of 2 packs/day x 30 years. The patient quit smoking completely in 1983. He reported that he was previously told that he had COPD and emphysema after having been evaluated by a rn recruitment in [place]. However, pulmonary function studies completed in July 2013 at [facility] revealed small airways obstruction with immediate response to aerosolized bronchodilators along with a moderate restrictive ventilatory defect. The patient completed a walking oximetry study at that time which revealed a pretesting oxygen saturation on room air of 96% with an ambulatory jorgito oxygen saturation of 93%. The patient also reported having been previously diagnosed with obstructive sleep apnea. However, he is noncompliant with the use of noninvasive nocturnal positive pressure ventilation. He also has a history of coronary artery disease [...] present on CTA chest from May 2017. The patient underwent a PET/CT on September 26, 2018 due to the spiculated right upper lobe lung nodule aforementioned. That imaging study did not demonstrate quantitative evidence of abnormal increased glucose metabolism to suggest an underlying malignancy. The patient also completed a formal 6-minute walk test in our pulmonary lab on September 30, 2018. The patient was able to ambulate 1003 feet over the course of 6 minutes. Pretesting oxygen saturation on room air was 97%. With ambulation, the jorgito oxygen saturation was 92%. Although this was considered a significant exertional oxygen desaturation, it did not meet inclusion criteria for the use of supplemental oxygen. Today, the patient is accompanied by his family members. He does report that he did complete the SNIFF test at [facility], as previously ordered. However, the results of that study were not forwarded to our office. Nevertheless, the patient's family does believe that they were told that he did have a degree of diaphragmatic dysfunction noted on the study. The results of his recent PET scan and walking oximetry study were personally conveyed to the patient and his family. While the patient does have exertional shortness of breath, he has noted no symptomatic response to the use of albuterol. In addition, his pulmonary function studies showed no evidence of COPD. The patient reported to me today that he is not interested in pursuing treatment for obstructive sleep apnea. He denies the presence of chest tightness or wheezing. His weight has remained stable. He states that he was just evaluated by his supervisor fireworks [employer], Dr. Mario last week and was told that he had no cardiac issues. However, the patient's blood pressure in our office has been elevated now on 2 separate occasions in excess of 150 mmHg systolic. Intake Vital Signs10/07/18 Height 5 ft 10 in 10/07/18 Weight: 179 lb Intake Visit Reasons: 2 W FU Health Professional Required: No Accompanied by: Family / Other Is patient in pain?: No Allergies hydromorphone [From Dilaudid] Allergy (Severe, Verified 10/07/18 09:02) Unknown melon Adverse Reaction (Severe, Verified 10/07/18 09:02) Unknown promethazine [From Phenergan] Adverse Reaction (Severe, Verified 10/07/18 09:02) Unknown Opioids - Morphine Analogues Adverse Reaction (Verified 10/07/18 09:02) Vomiting Medications Amlodipine [Norvasc] 2.5 mg PO BID 05/15/17 [History Confirmed 10/07/18] Ascorbic Acid [Vitamin C] 1,000 mg PO DAILY 05/15/17 [History Confirmed 10/07/18] Aspirin [Aspirin, Baby] 81 mg PO DAILY@0800 05/15/17 [History Confirmed 10/07/18] Cholecalciferol (Vitamin D3) [Vitamin D3] 400 unit PO DAILY 05/15/17 [History Confirmed 10/07/18] Clopidogrel Bisulfate [Clopidogrel] 75 mg PO DAILY 05/15/17 [History Confirmed 10/07/18] Diphenhydramine HCl [Allergy] 25 mg PO BID 05/15/17 [History Confirmed 10/07/18] Famotidine 20 mg PO BID 05/15/17 [History Confirmed 10/07/18] Folic Acid 0.8 mg PO DAILY@0800 05/15/17 [History Confirmed 10/07/18] Insulin Glargine,Hum.rec.anlog [Lantus] 15 unit SUBCUT QHS 05/15/17 [History Confirmed 10/07/18] Insulin Lispro [Humalog] 5 unit SUBCUT BREAKFAST 05/15/17 [History Confirmed 10/07/18] Insulin Lispro [Humalog] 5 unit SUBCUT LUNCH 05/15/17 [History Confirmed 10/07/18] Insulin Lispro [Humalog] 7 unit SUBCUT DINNER 05/15/17 [History Confirmed 10/07/18] Lisinopril [Zestril] 40 mg PO DAILY 05/15/17 [History Confirmed 10/07/18] Propranolol HCl 80 mg PO BID 05/15/17 [History Confirmed 10/07/18] Simvastatin 80 mg PO QHS 05/15/17 [History Confirmed 10/07/18] Vitamin E 400 unit PO DAILY 05/15/17 [History Confirmed 10/07/18] Acetaminophen [Tylenol Tablet] 650 mg PO Q4H PRN PRN tab 05/17/17 [Rx Confirmed 10/07/18] Metformin HCl [Glucophage] 1,000 mg PO DAILY 05/30/18 [History Confirmed 10/07/18] albuterol sulfate HFA 90 mcg/actuation aerosol inhaler 2 puff INHALATION Q6H PRN 09/22/18 [History Confirmed 10/07/18] [facility] Medical History Nicotine dependence, cigarettes, in remission [...] Throat Mouth: Positive hearing normal and nasal discharge (Clear); negative hard of hearing, hoarseness, dry mouth in morning, change in vision, itchy eyes, eye pain, swallowing Difficulty, ear pain, nose bleed, headache(s), mouth pain, nasal congestion, post nasal drip, sinus pain, sinus pressure, sore throat or other Cardio Cardiovascular: Negative chest pain, chest pain at rest, chest pain with activity, irregular heart rhythm, edema, shortness of breath when lying down, palpitations, murmur or other Resp Respiratory: Positive as per HPI, shortness of breath, cough cough: Positive non-productive and inhalers; negative pain with cough, wheezing, chest congestion, chest tightness, pain on inspiration, increase use of rescue inhalers, snoring, apnea [...] Normal AP diameter. Resp lung sounds: Positive normal expiratory time and good air exchange; negative wheezes, rhonchi or rales Cardio Cardiac: [...] Neurologic: Yes conversant, Yes no focal neuro deficits Lymph Lymphatic: No lymphadenopathy Psych Appearance: Positive grossly normal Mental Status: Positive mental status grossly normal Mood: Positive congruent mood Affect: Positive normal affect Coding Level of Care Code Off vis,est,level 4 Diagnoses SOB (shortness of breath) R06.02 Lung nodule R91.1 RENEE (obstructive sleep apnea) G47.33 Coronary artery disease involving [place] coronary artery of [place] heart with unstable angina pectoris I25.110 Associated angina: with unstable angina Coronary Disease-Associated Artery/Lesion type: [place] artery [place] vs. transplanted heart: [place] heart Nicotine dependence, cigarettes, in remission F17.211 10/07/18 0958 <Electronically signed by Derrick Morales DO> Date Derrick Morales DO Cosigner Signature: Date (if applicable) CC: Crow Serrato 6 MINUTE WALK TEST Observed: 09/30/2018 Status: F Source: [place] 1:08 PM [facility] REPOSITORY [facility] Pulmonary Services/Neurology [address] [place] [address] MR#: [id number] Acct: [id number] Name: KAITLINSAL ALONSO Abhishek Rep #: [id number] : 1945 73 From: Derrick Morales DO Referring Dr: Derrick Morales D.O. Date: Ordering Dr: Val: Venkat Garcia Location: PSN PSN 6 Minute Walk Test - 6 Minute Walk Test 6 Minute Walk Test: 6 Minute Walk Test PSN:6-Minute Walk Test Start: 09/30/18 11:19 Freq: Status: Active Protocol: RESP.6MINW Document 09/30/18 10:45 HG (Rec: 09/30/18 11:23 HG [id number]) 6 Minute Walk Test Date Performed 09/30/18 [...] study. 09/30/18 1308 <Electronically signed by Derrick Morales DO> Date Derrick Morales DO CC: Date Dictated: 09/30/18 1307 Date Transcribed: 09/30/18 1307 Stamping Die Maker Bench: Derrick Morales DO Signed PET/CT TUMOR BASE Observed: 09/26/2018 Status: F Source: [place] -THIGH INIT 7:18 AM [facility] REPOSITORY [facility] Imaging Services [address] [place] [address] PET/CT Tumor Base -Thigh Init MR#: [id number] Acct: [id number] Name: SAL AGUILAR Rep #: [id number] : 1945 M 73 From: Gagandeep Mario DO PCP: Crow Serrato Status: REG CLI Study: PET/CT Tumor Base -Thigh Init Date of Exam: 09/26/18 Exam# [id number] Ordering Dr: Crow Serrato EXAMINATION: FDG PET [...] and pelvis with intravenous contrast is recommended. (Luis Armando et al, Journal of Nuclear Medicine, 30:P868, 2003). Electronic Signature Gagandeep Mario D.O. Electronically Signed: Gagandeep Mario DO at 23:32 EST Tel , Service support , CC: Crow Serrato Stamping Die Maker Bench: Signed RF FLUOROSCOPY UNLISTED Observed: 09/23/2018 Status: F Source: [facility] PROCEDURE 12:00 PM SYSTEM REPOSITORY Patient Name: SAL AGUILAR Fluoroscopy Exam Date/Time 09/23/2018 10:20:00 EST Exam RF Fluoroscopy Unlisted Procedure Ordering Physician CROW SERRATO Accession Number [id number] [facility] Codes 04234 () Reason For Exam SNIFF TEST DYSPNEA, [...] VISIT REPORT Observed: 09/23/2018 Status: F Source: [place] 7:21 AM [facility] Pulmonary Medicine [address] [place] [address] OFFICE VISIT Date of Service: 09/22/18 MR#: [id number] Acct: [id number] Name: SAL AGUILAR Rep #: [id number] : 1945 Provider: Derrick Morales D.O. Age/Sex: 73/M Location: [facility].W Status: Signed Assessment AND Plan 1. SOB (shortness of breath) R06.02 Plan The patient presented to our office today with undifferentiated shortness of breath. His did report that he was previously diagnosed with COPD/emphysema. However, his prior pulmonary function studies completed in [place] multiple years ago revealed findings more concerning for asthma and more recently, his PFTs completed in August here at [facility] revealed a restrictive ventilatory process with no evidence of a fixed large airways obstruction. While the patient has been utilizing albuterol in his home environment, he reports no subjective improvement in his dyspnea complaints with its use. His recent CT chest did not reveal any significant emphysematous findings. The patient is currently followed by a supervisor fireworks assembly in [place] due to a history of coronary artery [...] and/or cardiac catheterizations that were performed in [place] recently. If the patient has not had [...] imaging studies. 4. Coronary artery disease involving [place] coronary artery of [place] heart with unstable angina pectoris I25.110 Plan The patient has known coronary artery disease, for which he follows with Dr. Mario of cardiology. We will attempt to obtain his prior cardiac records from [place] as noted above. It is possible that [...] being followed by Dr. Crow Serrato at [facility]. 16 pages of outside medical records were personally reviewed at today's office visit. The patient reports a smoking history that includes upwards of 2 packs/day x 30 years. The patient quit smoking completely in 1983. He reports that he was previously told that he had COPD and emphysema after having been evaluated by a rn recruitment in [place]. However, pulmonary function studies completed in July 2013 at [facility] revealed small airways obstruction with immediate response [...] to undergo a sniff test tomorrow at [place]. He also states that he has a [...] Lung nodule R91.1 Coronary artery disease involving [place] coronary artery of [place] heart with unstable angina pectoris I25.110 Associated angina: with unstable angina Coronary Disease-Associated Artery/Lesion type: [place] artery [place] vs. transplanted heart: [place] heart Nicotine dependence, cigarettes, in remission F17.211 09/23/18 0721 <Electronically signed by Derrick Morales DO> Date Derrick Morales DO Cosigner Signature: Date (if applicable) CC: Crow Serrato BASIC METABOLIC PANEL Collected: 09/21/2018 Status: F Source: [facility] 10:03 AM SYSTEM REPOSITORY TYPE CODE TESTS [...] Calcium 9.6 Performed By: #### BMP3 #### [facility] [address] [place] [address] CHEST WITHOUT Observed: 08/30/2018 Status: F Source: [place] CONTRAST 12:27 PM [facility] REPOSITORY [facility] Imaging Services [address] [place] [address] Chest without Contrast MR#: [id number] Acct: [id number] Name: SAL AGUILAR Rep #: [id number] : 1945 M 73 From: Jayjay Blunt MD PCP: Crow Serrato Status: REG CLI Study: Chest without Contrast Date of Exam: 08/30/18 Exam# [id number] Ordering Dr: Crow Serrato STUDY: CT CHEST [...] verbally conveyed by Jayjay Blunt MD to [facility], , on 08/31/2018 05:06:44 (ET). Electronically Signed: Jayjay Blunt MD at 4:52 EST Tel , Service support , CC: Derrick Morales D.O.; Crow Serrato Stamping Die Maker Bench: Signed PULMONARY FUNCTION Observed: 08/18/2018 Status: F Source: [place] TEST 11:38 AM [facility] REPOSITORY [facility] Pulmonary Services/Neurology [address] [place] [address] [place] [address] MR#: [id number] Acct: [id number] Name: SAL AGUILAR Rep #: [id number] : 1945 73 From: Derrick Morales DO Referring Dr: Crow Serrato Status: REG CLI Ordering Dr: Date: Location: [facility] Sex: M C INTRODUCTION: The patient [...] Serrato Date Dictated: 08/18/18 1135 Date Transcribed: 08/18/18 113 Stamping Die Maker Bench: CABRERA Signed CR CHEST SPECIAL Observed: 08/11/2018 Status: F Source: [employer] [facility] 8:23 AM SYSTEM REPOSITORY Patient Name: SAL AGUILAR Diagnostic Radiology Exam Date/Time 08/10/2018 12:45:00 EST Exam CR Chest Special Views Ordering Physician CROW SERRATO Accession Number [id number] CPT4 Codes 49665 () Reason For Exam DYSPNEA Report Chest: Special views: 08/10/2018. CLINICAL INFORMATION: Dyspnea. FINDINGS: Decubitus views of the chest with each side down reveals no evidence of layering pleural fluid on either side. Report Dictated on Workstation: [facility] Final Dictating Physician: MD RAMIREZ RISA Signed Date and Time: 08/11/2018 8:24 am Signed by: MD RAMIREZ RISA Transcribed Date and Time: 08/11/2018 8:25 CR CHEST PA/LAT Observed: 08/10/2018 Status: F Source: [facility] 3:54 PM SYSTEM REPOSITORY Patient Name: SAL AGUILAR Diagnostic Radiology Exam Date/Time 08/10/2018 13:00:02 EST Exam CR Chest PA/LAT Ordering Physician CROW SERRATO Accession Number [id number] CPT4 Codes 51650 () Reason For Exam dyspnea Report CHEST, [...] 3:57 PROGRESS Observed: 06/30/2018 Status: COMPLETED Source: [place] 2:31 PM [facility] REPOSITORY [facility] ID: [id number] Author: Noa Alford Service: (none) Author Type: Physician Type: Progress Notes Filed: 06/30/2018 2:57 PM Note Text: DIABETES FOLLOW UP SUBJECTIVE: Sal Aguilar is a 73 year old male who presents for a return visit regarding type 2 Diabetes. Diabetes complications include: peripheral neuropathy and CKD Sees for CKD. Interval history: He had kidney stone Saw urology in [place] Diabetes treatment regimen: Lantus 16 units q [...] specific diabetes management situations: The POC device commercial relationship manager provides a normal range of 4.2% to 6.5% for the HGBA1C POC test. However, the [place] [employer] guidelines indicate that patients with [...] specific diabetes management situations: The POC device commercial relationship manager provides a normal range of 4.2% to 6.5% for the HGBA1C POC test. However, the [place] [employer] guidelines indicate that patients with [...] 06/30/18 BETH Observed: 06/30/2018 Status: COMPLETED Source: [place] 2:25 PM [facility] REPOSITORY Office Visit (KAY) JOHANNASAL Abhishek ([id number]) 1945 M Date Time Provider Department 06/30/18 2:25 PM NOA ALFORD During your visit today, we recorded the following information about you: Pulse Blood pressure Weight Height 68/minute 135/76 81.6 kg 1.78 m Noa Alford MD 06/30/2018 2:57 PM Signed DIABETES FOLLOW UP SUBJECTIVE: Sal Weiss Johanna is a 73 year old male who presents for a return visit regarding type 2 Diabetes. Diabetes complications include: peripheral neuropathy and CKD Sees for CKD. Interval history: He had kidney stone Saw urology in [place] Diabetes treatment regimen: Lantus 16 units q [...] specific diabetes management situations: The POC device commercial relationship manager provides a normal range of 4.2% to 6.5% for the HGBA1C POC test. However, the [place] [employer] guidelines indicate that patients with [...] specific diabetes management situations: The POC device commercial relationship manager provides a normal range of 4.2% to 6.5% for the HGBA1C POC test. However, the [place] [employer] guidelines indicate that patients with [...] [I10] Pure hypercholesterolemia [E78.00] Order(s):HEMOGLOBIN A1C (POC) [1830830] Order #: [id number]. #:[id number] insulin lispro (HUMALOG U-100 INSULIN) 100 unit/mL [...] SINGLE VIEW Observed: 06/27/2018 Status: F Source: [place] 2:03 PM [facility] REPOSITORY [facility] Imaging Services [facility] [place] [address] Abdomen Single View MR#: [id number] Acct: [id number] Name: SAL AGUILAR Rep #: [id number] : 1945 M 73 From: Ricky Oseguera MD PCP: Crow Serrato Status: REG CLI Study: Abdomen Single View Date of Exam: 06/27/18 Exam# [id number] Ordering Dr: Joseph Levy MD STUDY: X-RAY [...] , CC: Joseph Levy MD; Crow Serrato Stamping Die Maker Bench: Signed BEDSIDE GLUCOSE Collected: 06/08/2018 Status: F Source: [place] 4:56 PM [facility] REPOSITORY TYPE CODE TESTS RESULT OUT OF RANGE REFERENCE UNITS LAB L501.080 70-110 mg/dL Normal BEDSIDE GLU 98 Result Comment: MANAGEMENT OF PATIENT CARE PER NURSING PROTOCOL Performed By: #### L501.080 #### [facility] Point of Care [address] [place] [address] OPERATIVE REPORT Observed: 06/08/2018 Status: F Source: [place] 4:16 PM [facility] REPOSITORY [facility] Medical Records Department [address] [place] [address] Operative Report 06/08/181613 MR#: [id number] Acct: [id number] Name: SAL AGUILAR Rep #: [id number] : 1945 73 From: Joseph Levy MD PCP: Crow Serrato Status: REG SDC Y Location: [place] [address] Report of Operation Date of Procedure: 06/08/18 [...] Admission: No VTE Mechan Device Prophylaxis: SCD's 06/08/186 <Electronically signed by Joseph Levy MD> Date Joseph Levy MD CC: Joseph Levy MD; Crow Serrato Signed DISCHARGE INSTRUCTION Observed: 06/08/2018 Status: F Source: [place] 4:05 PM [facility] REPOSITORY [facility] Medical Records Department [address] [place] [address] Instructions for Home/Discharge Instructions 06/08/18 1604 MR#: [id number] Acct: [id number] Name: SAL AGUILAR Rep #: [id number] : 1945 73 From: Joseph Levy MD PCP: Crow Serrato Status: REG [place] Discharge Diet: No Restrictions, Light diet - [...] please call to make an appointment. 06/08/18 5178 <Electronically signed by Joseph Levy MD> Date Joseph Levy MD CC: Crow Serrato BEDSIDE GLUCOSE Collected: 06/08/2018 Status: F Source: [place] 1:13 PM [facility] REPOSITORY TYPE CODE TESTS RESULT OUT OF REFERENCE UNITS RANGE LAB L501.080 70-110 mg/dL High BEDSIDE GLU 130 Result Comment: MANAGEMENT OF PATIENT CARE PER NURSING PROTOCOL Performed By: #### L501.080 #### [facility] Point of Care [address] [place] [address] ABDOMEN SINGLE VIEW Observed: 06/08/2018 Status: F Source: [place] 12:00 AM [facility] REPOSITORY [facility] Imaging Services [address] [place] [address] Abdomen Single View MR#: [id number] Acct: [id number] Name: SAL AGUILAR Rep #: [id number] : 1945 M 73 From: Maxi Austin MD PCP: Crow Serrato Status: [facility] Study: Abdomen Single View Date of Exam: 06/08/18 Exam# [id number] Ordering Dr: Joseph Levy MD STUDY: X-RAY [...] Maxi Austin MD at 13:13 EDT Tel [phone], Service support , CC: Joseph Levy MD; Crow Serrato Stamping Die Maker Bench: Signed CR CHEST PA/LAT Observed: 06/06/2018 Status: F Source: [facility] 2:45 PM SYSTEM REPOSITORY Patient Name: SAL AGUILAR Diagnostic Radiology Exam Date/Time 06/06/2018 13:41:18 EDT Exam CR Chest PA/LAT Ordering Physician CROW SERRATO Accession Number [id number] CPT4 Codes 61431 () Reason For Exam other alveolar conditions [...] OPERATIVE REPORT Observed: 05/18/2018 Status: F Source: [place] 4:48 PM [facility] REPOSITORY [facility] Medical Records Department [address] [place] [address] Operative Report 05/18/18 1646 MR#: [id number] Acct: [id number] Name: SAL AGUILAR Rep #: [id number] : 1945 73 From: Joseph Levy MD PCP: Crow Serrato Status: REG [facility] Y Location: [place] [address] Problem List (1) Kidney stone on right side Status: Acute Report of Operation Date of Procedure: 05/18/18 Pre-Operative Diagnosis: right obstructing renal calculi Post-Operative Diagnosis: Same Surgery/Procedure Performed:: Cystoscopy, right retrograde pyelogram, right stent placement Description of Surgical Findings:: 73-year-old male taken back to the operating room at the smooth induction of [facility] local, he was placed in dorsal lithotomy position the penis testicles were prepped and draped in usual sterile fashion, went to the bladder with a 21 Polish rigid cystourethroscope, we infiltrated the urethra with lidocaine jelly, the bladder was normal, the prostate was normal, the room is normal the trigone is normal identify the right ureteral orifice advanced a wire up into the right kidney could see some stones under fluoroscopy I then placed a stent a 7 Polish by 26 cm stent on the right [...] the treatment want to talk to his supervisor fireworks assembly. Type of Anesthesia:: General Drains: stent right 7fr x 26 cm - Admit VTE Documentation VTE Present on Admission: No VTE Mechan Device Prophylaxis: SCD's 05/18/18 1648 <Electronically signed by Joseph Levy MD> Date Joseph Levy MD CC: Joseph Levy MD; Crow Serrato Signed DISCHARGE INSTRUCTION Observed: 05/18/2018 Status: F Source: [place] 3:28 PM [facility] REPOSITORY [facility] Medical Records Department [address] [place] [address] Instructions for Home/Discharge Instructions 05/18/18 1527 MR#: [id number] Acct: [id number] Name: SAL AGUILAR Rep #: [id number] : 1945 73 From: Joseph Levy MD PCP: Crow Serrato Status: REG SDC Discharge Diet: No Restrictions, Light diet - advance as tolerated Discharge Activity: Return to Normal Activity, May Not Drive - for 2 days. Additional Activity Instructions:: f you have a catheter, remove on ___. If you have any problems after catheter is removed, call [phone] and ask for your doctor to be [...] 05/15/17 Aspirin [Aspirin, Baby] 81 mg PO DAILY@79905/15/17 Cholecalciferol (Vitamin D3) [Vitamin D3] 400 unit PO DAILY 05/15/17 Clopidogrel Bisulfate [Clopidogrel] 75 mg PO DAILY 05/15/17 Diphenhydramine HCl [Allergy] 25 mg PO BID 05/15/17 Famotidine 20 mg PO BID 05/15/17 Folic Acid 0.8 mg PO DAILY@79905/15/17 Insulin Glargine,Hum.rec.anlog [Lantus] 15 unit SC QHS [...] AND PHYSICAL Observed: 05/18/2018 Status: F Source: [place] EXAM 3:25 PM [facility] REPOSITORY [facility] Medical Records Department [address] [place] [address] History and Physical 05/18/18 1518 MR#: [id number] Acct: [id number] Name: SAL AGUILAR Abhishek Rep #: [id number] : 1945 73 From: Joseph Levy MD PCP: Crow Serrato Status: REG SDC Y Location: [place] [address] Problem List (1) Kidney stone on right [...] op will get cardiology OK from his supervisor fireworks assembly Dr Mario in [place]. 05/18/18 1525 <Electronically signed by Joseph Levy MD> Date Joseph Levy MD Cosigner Signature: Date (if applicable) CC: Joseph Levy MD; Crow Serrato Signed BEDSIDE GLUCOSE Collected: 05/18/2018 Status: F Source: [place] 2:28 PM [facility] REPOSITORY TYPE CODE TESTS RESULT OUT OF REFERENCE UNITS RANGE LAB L501.080 70-110 mg/dL High BEDSIDE GLU 177 Result Comment: MANAGEMENT OF PATIENT CARE PER NURSING PROTOCOL Performed By: #### L501.080 #### [facility] Point of Care [address] [place] [address] EMERGENCY DEPARTMENT Observed: 05/18/2018 Status: F Source: [place] SUMMARY 12:48 PM [facility] REPOSITORY [facility] Medical Records Department [address] [place] [address] Emergency Department Summary 05/18/18 1036 MR#: [id number] Acct: [id number] Name: SAL AGUILAR Rep #: [id number] : 1945 73 From: Aleida Escamilla MD [...] calculus. Lab work was obtained from his direct sales professional Dr. Mancilla's office. His creatinine on May 04, 2018 was 1.64. Discussed with Dr. Levy and he will take him to the operating room. Patient and family advised of this plan. Disposition: To OR Impression: Urolithiasis, acute kidney injury This note was generated with ClickSquared dictation software. It may contain incorrect words, spelling, [...] your Primary Care Provider. Call [facility] ([phone]) or report to the closest Emergency Room. Call 911 if necessary. 05/18/18 1248 <Electronically signed by Aleida Escamilla MD> Date Aleida Escamilla MD Cosigner Signature (If Indicated): Date CC: Crow Serrato URINALYSIS, COMPLETE Collected: 05/18/2018 Status: F Source: [place] 10:15 AM [facility] REPOSITORY Order Comment: How was Urine Obtained? [...] L400.0001 #### [facility] [address] [place], [address] CBC W/DIFF, AUTOMATED Collected: 05/18/2018 Status: F Source: [place] 10:05 AM [facility] REPOSITORY TYPE CODE TESTS RESULT OUT OF [...] #### L100.0100 #### [facility] [address] [place], [address] BASIC METABOLIC Collected: 05/18/2018 Status: F Source: [place] PROFILE (BMP) 10:05 AM [facility] REPOSITORY TYPE CODE TESTS RESULT OUT OF [...] #### L500.2500 #### [facility] [address] [place], [address] ABDOMEN/PELVIS WITHOUT Observed: 05/18/2018 Status: F Source: [place] CONT 9:46 AM [facility] REPOSITORY [facility] Imaging Services [address] [place] [address] Abdomen/Pelvis without Cont MR#: [id number] Acct: [id number] Name: SAL AGUILAR Rep #: [id number] : 1945 M 73 From: Maxi Austin MD PCP: Crow Serrato Status: REG ER Study: Abdomen/Pelvis without Cont Date of Exam: 05/18/18 Exam# [id number] Ordering Dr: Aleida Escamilla MD STUDY: CT [...] Maxi Austin MD at 11:10 EDT Tel [phone], Service support , CC: Aleida Escamilla MD; Crow Serrato Stamping Die Maker Bench: Signed CREATININE, UR RANDOM Collected: 05/04/2018 Status: F Source: [facility] 9:56 AM SYSTEM REPOSITORY TYPE CODE TESTS RESULT OUT OF REFERENCE UNITS RANGE LAB CRTRU No Range mg/dL Creatinine, 155.4 Ur Random Performed By: #### HEMDF, CRTUR, TPUR, RENL3 #### [facility] [address] [place] [address] #### PTH3 #### [facility] [address] [place] [address] PROTEIN, UR RANDOM Collected: 05/04/2018 Status: F Source: [facility] 9:56 AM SYSTEM REPOSITORY TYPE CODE TESTS RESULT OUT OF REFERENCE UNITS RANGE LAB URTP No Range mg/dL High Protein, Ur 18 Random Performed By: #### HEMDF, CRTUR, TPUR, RENL3 #### [facility] [address] [place] [address] #### PTH3 #### [facility] [address] [facility] [place] [address] HEMOGRAM W/ AUTODIFF Collected: 05/04/2018 Status: F Source: [facility] 9:54 AM SYSTEM REPOSITORY TYPE CODE TESTS [...] By: #### HEMDF, CRTUR, TPUR, RENL3 #### [facility] [address] [place] [address] #### PTH3 #### [facility] [address] [place] [address] RENAL FUNCTION Collected: 05/04/2018 Status: F Source: [facility] 9:54 AM SYSTEM REPOSITORY TYPE CODE TESTS [...] By: #### HEMDF, CRTUR, TPUR, RENL3 #### [facility] [address] [facility] [address] #### PTH3 #### [facility] [address] [place] [address] PTH, INTACT Collected: 05/04/2018 Status: F Source: [facility] 9:54 AM SYSTEM REPOSITORY TYPE CODE TESTS RESULT OUT OF RANGE REFERENCE UNITS LAB PTH3 15.0-63.0 pg/mL Normal PTH, Intact 27.1 Performed By: #### HEMDF, CRTUR, TPUR, RENL3 #### [facility] [address] [place] [address] #### PTH3 #### [facility] [address] [place] [address] PROGRESS Observed: 11/24/2017 Status: COMPLETED Source: [place] 10:42 AM [facility] REPOSITORY HNO ID: [id number] Author: Gagandeep Sevilla MD Service: (none) Author Type: Physician [...] residual left hand and leg tingling. Uses Dianna Contour meter. Medication list, insulin doses reviewed with the patient, reconciled. Family history notable for stroke, heart disease, hyperlipidemia, diabetes, arthritis, asthma, and breast cancer. Non-smoker, denies alcohol use. Allergic to melon flavor, pumpkin, has hay fever. Checks 3x daily. His supervisor fireworks assembly is Dr. Mario, direct sales professional is Dr. Mancilla. Notes no recent significant [...] months. ? Get diabetic eye exam updated. Gagandeep Sevilla MD CNOV Observed: 11/24/2017 Status: COMPLETED Source: [place] 10:25 AM [facility] REPOSITORY Office Visit (ENDMED) JOHANNASAL ([id number]) 1945 M Date Time Provider Department 11/24/17 10:25 AM GAGANDEEP SEVILLA During your visit today, we recorded the following information about you: Pulse Blood pressure Weight Height 61/minute 130/68 78.8 kg 1.77 m Gagandeep Sevilla MD, MD 11/27/2017 10:56 AM Signed Follow-up 72 year-old [...] residual left hand and leg tingling. Uses Dianna Contour meter. Medication list, insulin doses reviewed with the patient, reconciled. Family history notable for stroke, heart disease, hyperlipidemia, diabetes, arthritis, asthma, and breast cancer. Non-smoker, denies alcohol use. Allergic to melon flavor, pumpkin, has hay fever. Checks 3x daily. His supervisor fireworks assembly is Dr. Mario, direct sales professional is Dr. Mancilla. Notes no recent significant [...] ? Get diabetic eye exam updated. MD Gagandeep Benoit MD, MD 11/24/2017 10:55 AM Signed Continue current medications. See us again in 6 months. Get diabetic eye exam done again in 01/2018. Referring Provider: GAGANDEEP SEVILLA [[id number]] Allergies As of Date: 11/24/2017 Noted Allergy [...] and Disposition History Recorded Encounter Status:Closed by GAGANDEEP SEVILLA MD on 11/27/17 CAROTID DUPLEX Observed: 10/14/2017 Status: F Source: [place] ULTRASOUND 7:39 PM [facility] REPOSITORY [facility] Cardiovascular Services [address] [place] [address] Carotid Duplex Ultrasound 10/14/17 1214 MR#: [id number] Acct: [id number] Name: SAL AGUILAR Rep #: [id number] : 1945 72 From: Ace Espinoza MD [...] the left vertebral artery. Procedure Carotid Duplex 30799. The exam was diagnostic. Exam performed in [...] Date Dictated: 10/14/17 1214 Date Transcribed: 10/14/171937 Stamping Die Maker Bench: Signed HEAD/NECK SOFT TISSUE Observed: 10/14/2017 Status: F Source: [place] 11:53 AM [facility] REPOSITORY [facility] Imaging Services [address] [place] [address] Head/Neck Soft Tissue MR#: [id number] Acct: [id number] Name: SAL AGUILAR Rep #: [id number] : 1945 M 72 From: Maxi Austin MD PCP: Crow Serrato Status: REG CLI Study: Head/Neck Soft Tissue Date of Exam: 10/14/17 Exam# [id number] Ordering Dr: Crow Serrato STUDY: SUPERFICIAL ULTRASOUND [...] Maxi Austin MD at 15:47 EST Tel [phone], Service support , CC: Crow Serrato Stamping Die Maker Bench: Signed ALLERGIES ALLERGIES DATE TYPE / CODE NAME / CODE REACTION SEVERITY SOURCE 10/07/2018 Drug Opioids - Vomiting Unknown [facility] 834726(SNOM Analogues/M74922 Repository ED CT) 0268(RXNORM) 10/07/2018 Drug promethazine/F00 Unknown [facility]/224 2994177(RXNORM) [facility] 622634(SNOM Repository ED CT) 10/07/2018 Drug hydromorphone/F0 Unknown [facility]/416 77534282(RXNORM) [facility] 202726(SNOM Repository ED CT) 10/07/2018 Drug melon/[id number] Unknown [facility]/416 (RXNORM) [facility] 249784(SNOM Repository ED CT) 05/15/2017 Drug No Known Unknown [facility]/416 Allergies/D08896 Hospital 566541(SNOM 0388(RXNORM) Repository ED CT) 04/27/2014 Environ/420 SEASONAL OTHER: SEE C [facility] 334987(SNOM ALLERGIES [facility] [place] ED CT) Repository 04/27/2014 DRUG PUMPKIN ITCHING [facility] INGREDI/419 [facility] 383067(SNOM Repository ED CT) 11/25/2012 DRUG MELON FLAVOR SWELLING [facility] [facility] INGREDI/419 [facility] [place] [id number](SNOM Repository ED CT) ENCOUNTERS ENCOUNTERS ADMIT/DISCHARGE ACCOUNT NUMBER ADMITTING ENCOUNTER LOCATION SOURCE CLASS 10/07/2018/10/07/19 [id number] Ambulatory BMSBuilding: [place] 19 [facility]ly [facility] Repository 09/30/2018 [id number] Ambulatory BMSBuilding: [facility] Repository 09/30/2018 [id number] Ambulatory [facility] ding:PSN Repository 09/26/2018 [id number] Ambulatory [facility] ding:ONC Repository 09/23/2018 [id number] Ambulatory [facility] Repository 09/22/2018/09/22/19 [id number] Ambulatory BMSBuilding: [place] 19 [facility] Repository 09/21/2018 [id number] Ambulatory [facility] Repository 08/30/2018 [id number] Ambulatory [facility] ding:CT Repository 08/18/2018 [id number] Ambulatory BMSBuilding: [facility] Repository 08/18/2018 [id number] Ambulatory [facility] ding:PSN Repository 08/10/2018 [id number] Ambulatory [facility] Repository 06/30/2018/06/30/20 [id number] Ambulatory [address] Repository 06/27/2018 [id number] Ambulatory [facility] ding:RAD.FUT Repository URE 06/08/2018/06/08/20 [id number] Ambulatory [address] ding:SDCRoom Repository : AC12 06/06/2018 [id number] Ambulatory [facility] Repository 05/18/2018/05/18/20 [id number] Ambulatory [address] ding:SDC Repository 05/04/2018 [id number] Ambulatory [facility] Repository 12/28/2017 [id number] Ambulatory [facility] Repository 11/24/2017/11/25/19 [id number] Ambulatory [address] Repository 10/14/2017 [id number] Ambulatory Miguel Ángel [place] [facility] ding:US Repository PAYERS PAYERS ENCOUNTER GUARANTOR PAYER SUBSCRIBER SOURCE 10/07/2018 SAL Weiss Primary SAL Del Rosario [id number] Insurance:MEDICARE UMSTEADDOB: Community [place] PART A [facility] [id number] Number: Repository [address]Vzv: 330 [id number] [phone] () Date:2018-09-22 10/07/2018 Secondary SAL Del Rosario Insurance:BANKERS UMSTEADDOB: [facility] [id number] Hospital Number: Repository [id number] Date:2018-09-22 [address], [place] [address]MP: 10/07/2018 Tertiary NOT GIVENUNK [place] Insurance:SELF PAY [facility] Number: Effective Repository Date:2018-09-22 09/30/2018 SAL Weiss Primary SAL Del Rosario [id number] Insurance:MEDICARE UMSTEADDOB: Community [place] PART A [facility] [id number] [place] Number[facility] Repository [address]Ace: 330 [id number] [phone] () Date:2018-09-22 09/30/2018 Secondary SAL Del Rosario Insurance:BANKERS UMSTEADDOB: Community LIFE CASUALTYPnyu [facility] [id number] Hospital Number: Repository [id number] Date:2018-09-22 [address], [place] [address]DY: 09/30/2018 Tertiary NOT GIVENUNK Miguel Ángel Insurance:SELF PAY [facility] Number: Effective Repository Date:2018-09-30 09/30/2018 SAL Weiss Primary SAL Del Rosario [id number] Insurance:MEDICARE UMSTEADDOB: Community [place] PART A [facility] [id number] [place] [address] [place] Number: Repository 389[address]Jkh: 330 [id number] [phone] (HP) Date:2018-09-22 09/30/2018 Secondary SAL Abhishek [place] Insurance:BANKERS UMSTEADDOB: Community LIFE CASUALTYPolicy [id number] Hospital Number: Repository [id number] Date:2018-09-22[address], [place] [address]SF: 09/30/2018 Tertiary NOT GIVENUNK [place] Insurance:SELF PAY [facility] Number: Effective Repository Date:2018-09-22 09/26/2018 SAL Weiss Primary SAL Abhishek Miguel Ángel [id number] Insurance:MEDICARE UMSTEADDOB: [facility] FIRETHORN PART A BPolicy [id number] Number: Repository [id number]: [phone] [id number] [phone] () Date:2018-09-23 09/26/2018 Secondary SAL Abhishek Miguel Á[place] Insurance:BANKERS UMSTEADDOB: Community LIFE CASUALTYPolicy [id number] Hospital Number: Repository [id number] Date:2018-09-23[address], [place] [address]XF: 09/26/2018 Tertiary NOT GIVENUNK [place] Insurance:SELF PAY [facility] Number: Effective Repository Date:2018-09-23 09/23/2018 Sal Weiss Primary [facility]:MedicarePol [place]DOB: System icy Number: Effective [id number] Repository Fire[place]orn Date:2008[birth year]01-[birth year] [place], [place] [address]Saq: () 09/23/2018 Secondary Sal Abhishek [facility] Insurance:MedicarePol [place]DOB: System icy Number: Effective [id number] Repository Date:2008-01-12 09/23/2018 Tertiary Sal Abhishek [facility] Insurance:Bankers UmsteadDOB: System Life CasualtyPolicy [id number] Repository Number: Effective Date: 09/22/2018 SAL K Primary SAL K [place] [id number] Insurance:MEDICARE UMSTEADDOB: Community FIRE[place]ORN PART A olicy [id number] [place] Number: Repository [address]Wfa: 330 [id number] [phone] () Date:2018-08-15 09/22/2018 Secondary SAL Abhishek [place] Insurance:BANKERS UMSTEADDOB: Community LIFE CASUALTYPolicy [id number] Hospital Number: Repository [id number] Date:2018-08-15[address], [place] [address]QV: 09/22/2018 Tertiary JONO PETTIT Miguel Ángel Insurance:SELF PAY [facility] Number: Effective Repository Date:2018-09-19 09/21/2018 Sal Weiss Primary [facility] Insurance:MedicarePol [place]DOB: System icy Number: Effective [id number] Repository [place] Date:2008-01-12 [place], [place] [address]Vrb: () 09/21/2018 Secondary Sal Abhishek [facility] Insurance:MedicarePol [place]DOB: System icy Number: Effective [id number] Repository Date:2008-01-12 09/21/2018 Tertiary Sal Abhishek [facility] Insurance:Bankers UmsteadDOB: System Life CasualtyPolicy [id number] Repository Number: Effective Date: 08/30/2018 SAL K Primary SAL Abhishek Miguel Á[place]el [id number] Insurance:MEDICARE UMSTEADDOB: Community FI[place]ORN PART A olic [id number] [place] Number: Repository [address]Raz: 330 [id number] [phone] () Date:2018-08-26 08/30/2018 Secondary SAL Abhishek [place] Á[place] Insurance:BANKERS UMSTEADDOB: Community LIFE CASUALTYPolicy [id number] Hospital Number: Repository [id number] Date:2018-08-26[address], [place] [address]KX: 08/30/2018 Tertiary NOT GIVENUNK Miguel Ángel Insurance:SELF PAY [facility] Number: Effective Repository Date:2018-08-26 08/18/2018 SAL Weiss Primary SAL Weiss [place] [id number] Insurance:MEDICARE UMSTEADDOB: Community FI[place]ORN PART A [facility] [id number] Number: Repository [id number]: [phone] [id number] [phone] (HP) Date:2018-08-17 08/18/2018 Secondary SAL Weiss [place] Insurance:BANKERS UMSTEADDOB: Community LIFE CASUALTYPolicy [id number] Hospital Number: Repository [id number] Date:2018-08-17 [address], [place] [address]EB: 08/18/2018 Tertiary NOT GIVENUNK [place] Insurance:SELF PAY [facility] Number: Effective Repository Date:2018-08-18 08/18/2018 SAL Weiss Primary SAL Weiss [place] [id number] Insurance:MEDICARE UMSTEADDOB: Community FIRE[place]ORN PART A [facility] [id number] Number: Repository [address]Xpl: [phone] [id number] [phone] () Date:2018-08-17 08/18/2018 Secondary SAL Weiss [place] Insurance:BANKERS UMSTEADDOB: Community LIFE CASUALTYPolicy [id number] Hospital Number: Repository [id number] Date:2018-08-[address], [place] [address]CR: 08/18/2018 Tertiary NOT GIVENUNK Miguel Ángel Insurance:SELF PAY [facility] Number: Effective Repository Date:2018-08-17 08/10/2018 Sal Weiss Primary Sal Weiss [facility] UmsteadDOB: Insurance:MedicarePol [place]DOB: System icy Number: Effective [id number] [facility] [place]orn Date:2008-01-12 [place], [place] [address]Cab: () 08/10/2018 Secondary Sal [facility] Insurance:MedicarePol [place]DOB: System icy Number: Effective [id number] Repository Date:2008-01-12 08/10/2018 Tertiary Sal [facility] Insurance:Bankers [place]DOB: System Life CasualtyPolicy [id number] Repository Number: Effective Date: 06/27/2018 SAL Weiss Primary SAL Del Rosario [id number] Insurance:MEDICARE UMSTEADDOB: Community [place] PART A [facility] [id number] [place] Number: Repository [address]Elg: 330 [id number] [phone] () Date:2018-06-23 06/27/2018 Secondary SAL Weiss [place] Insurance:BANKERS UMSTEADDOB: Community LIFE CASUALTYPolicy [id number] Hospital Number: Repository [id number] Date:2018-06-23P [address], [place] [address]TC: 06/27/2018 Tertiary NOT GIVENUNK [place] Insurance:SELF PAY [facility] Number: Effective Repository Date:2018-06-23 06/08/2018 SAL Weiss Primary SAL Weiss [place] [id number] Insurance:MEDICARE UMSTEADDOB: Community [place] PART A [facility] [id number] [place] Number: Repository [address]Ael: 330 [id number] [phone] () Date:2018-05-19 06/08/2018 Secondary SAL Weiss [place] Insurance:BANKERS UMSTEADDOB: Community LIFE CASUALTYPolicy [id number] Hospital Number: Repository [id number] Date:2018-05-19P [address], [place] [address]JQ: 06/08/2018 Tertiary NOT GIVENUNK Miguel Ángel Insurance:SELF PAY Community [facility] Number: Effective Repository Date:2018-05-19 06/06/2018 Sal Weiss Primary Sal [facility] [place]DOB: Insurance:MedicarePol [place]DOB: System icy Number: Effective [id number] Repository [place] Date:2008-01-12 [place], [place] [address]Qpx: () 06/06/2018 Secondary Sal [facility] Insurance:MedicarePol [place]DOB: System icy Number: Effective [id number] Repository Date:2008-01-12 06/06/2018 Tertiary Sal [facility] Insurance:Bankers [place]DOB: System Life CasualtyPolicy [id number] Repository Number: Effective Date: 05/18/2018 SAL Weiss Primary SAL Wesis Miguel Áng[place] [id number] Insurance:MEDICARE UMSTEADDOB: Community [place] PART A BPnyu [facility] [id number] [place] Number: Repository [address]Szg: [phone] [id number] [phone] () Date:2018-05-18 05/18/2018 Secondary SAL Weiss Miguel Á[place] Insurance:BANKERS UMSTEADDOB: Community LIFE CASUALTYPolicy [id number] Hospital Number: Repository [id number] Date:2018-05-[address] [address]NP: 05/18/2018 [facility] [place] Insurance:SELF PAY [facility] Number: Effective Repository Date:2018-05-18 05/04/2018 Sal Weiss Primary Sal [facility] [place]DOB: Insurance:MedicarePol [place]DOB: System icy Number: Effective [id number] Repository [place] Date:2008-01-12 [place], [place] [address]Wcd: () 05/04/2018 Secondary Sal [facility] Insurance:MedicarePol [place]DOB: System icy Number: Effective [id number] Repository Date:2008-01-12 05/04/2018 Tertiary Sal [facility] Insurance:Bankers [place]DOB: System Life CasualtyPolicy [id number] Repository Number: Effective Date: 12/28/2017 Sal Weiss Primary Sal [facility] [place]DOB: Insurance:MedicarePol [place]DOB: System icy Number: Effective [id number] Repository [place] Date:2008-01-12 [place], [place] [address]Zqx: () 12/28/2017 Secondary Sal [facility] Insurance:MedicarePol [place]DOB: System icy Number: Effective [id number] Repository Date:2008-01-12 12/28/2017 Tertiary Sal [facility] Insurance:Bankers [place]DOB: System Life CasualtyPolicy [id number] Repository Number: Effective Date: 10/14/2017 Sal Primary Sal Miguel Ángel [id number] Insurance:MEDICARE [place]DOB: Community [place] PART A BPolicy [id number] [place] Number: Repository [address]Oun: [phone] [id number] [phone] () Date:2017-10-08 10/14/2017 Secondary Sal Del Rosario Insurance:BANKERS [place]DOB: Community LIFE CASUALTYPolicy [id number] Hospital Number: Repository [id number] Date:2017-10-08P [address] [place] [address]ZN: 10/14/2017 Tertiary NOT GIVENUNK [place] Insurance:SELF PAY Community [facility] Number: Effective Repository Date:2017-10-08
== END ==
PROVIDERS: Family Provider Internal Medicine; PCP Internal Medicine; Referring Provider Internal Medicine Critical Care Medicine; Visit Provider Internal Medicine Critical Care Medicine
DX: R06.02 Shortness of breath (principal)
CPT/HCPCS: 94618

== ENCOUNTER → 2018-10-18 13:03 | Outpatient (CLI) | payer MEDICARE, OTHER, SELFPAY ==
[2018-10-07 09:02] VITALS: BMI 25.7
--- NOTE | 2018-10-18 13:05 | ECHOD_ITS ---
Reason For Study: DYSPNEA Procedure This was a 2D Doppler, Color Flow transthoracic echocardiogram. Exam performed in department. Left Ventricle Normal size and thickness. The estimated ejection fraction is 65 %. Stage 1 diastolic dysfunction. No regional wall motion abnormalities noted. Right Ventricle Normal size and thickness. Normal systolic function. Atria Normal left atrium. Normal right atrium. Normal atrial septum. Mitral Valve Mild diffuse mitral valve thickening. Mild mitral annular calcification extending into the posterior leaflet. Trivial mitral valve insufficiency. Tricuspid Valve Normal tricuspid valve. Trivial tricuspid valve insufficiency. Right ventricular systolic pressure estimated to be 28 mmHg. Aortic Valve Trisinus/trileaflet aortic valve. Mild focal aortic valve thickening. Trivial aortic valve insufficiency. Pulmonic Valve Normal pulmonic valve. Great Vessels Normal aortic root. Normal arch. Normal inferior vena cava. Inferior vena cava collapse with sniff. Pericardium/Pleural No pericardial effusion. MMode/2D Measurements & Calculations LVIDd: 4.3 cm IVSd: 1.2 cm Ao root diam: 3.9 cm LVIDs: 2.8 cm LVPWd: 1.1 cm RVDd: 3.4 cm FS: 36.2 % LAV(MOD-bp): 42.3 ml EDV(MOD-sp4): 102.0 ml SV(MOD-sp4): 71.2 ml LAV(MOD-bp) Indexed: 21.2 ml/m2 ESV(MOD-sp4): 30.8 ml LAV(MOD-sp2): 42.7 ml EF(MOD-sp4): 69.8 % LAV(MOD-sp4): 40.6 ml LA dimension(2D): 3.5 cm LA A4 area: 17.3 cm2 RA A4 area: 12.7 cm2 Time Measurements MV dec time: 0.24 sec Doppler Measurements & Calculations MV E max hal: 86.1 cm/sec Lat Peak E' Hal: 7.8 cm/sec Med Peak E' Hal: 3.8 cm/sec MV A max hal: 75.2 cm/sec E/E' lat: 11.0 E/E' med: 22.6 MV E/A: 1.1 Ao V2 max: 100.9 cm/sec LV V1 max: 77.9 cm/sec PA V2 max: 91.8 cm/sec Ao max P.1 mmHg LV V1 max P.4 mmHg TR max hal: 251.3 cm/sec TR max P.4 mmHg Interpretation Summary The estimated ejection fraction is 65 %. Stage 1 diastolic dysfunction. Trivial mitral valve insufficiency. Trivial tricuspid valve insufficiency. Right ventricular systolic pressure estimated to be 28 mmHg. Trivial aortic valve insufficiency. There is no comparison study available. Ordering Physician: Derrick Morales D.O. Referring Physician: CROW CONLEY Performed By: Odalis Key, BE, RVT
== END ==
PROVIDERS: Family Provider Internal Medicine; PCP Internal Medicine; Referring Provider Internal Medicine Critical Care Medicine; Visit Provider Internal Medicine Critical Care Medicine
DX: I25.110 Atherosclerotic heart disease of native coronary artery with unstable angina pectoris (principal)
CPT/HCPCS: 93306

== ENCOUNTER → 2019-03-02 | Outpatient (CLI) | payer MEDICARE, OTHER, SELFPAY ==
[2018-10-07 09:02] VITALS: BMI 25.7
--- NOTE | 2019-03-02 13:03 | CT_ITS ---
STUDY: CT CHEST WITHOUT CONTRAST REASON FOR EXAM: Male, 74 years old. Follow-up lung nodule RADIATION DOSAGE (If Supplied By Facility): CTDIvol = ( 14.63 ) mGy, DLP = ( 588.52 ) mGycm TECHNIQUE: Transaxial imaging was performed without the administration of intravenous contrast material. Individualized dose optimization techniques were used for this CT. COMPARISON: Prior study of 08/30/2018. A previous PET scan of 09/26/2018 is not available for comparison. FINDINGS: There are mild diffuse emphysematous changes of the lungs. A previously demonstrated spiculated 1 cm nodule of the right upper lobe noted on the previous study of 08/30/2018 is not seen at this time. No new nodules are evident. There is no evidence of infiltrate, atelectasis, or bronchiectasis. There is no demonstrated pleural abnormality. The heart size is within normal limits. Coronary arterial calcifications are present. There is no pericardial effusion. There is a precarinal node measuring 9 mm in short axis. Normal hilar regions. There is dilatation of the main, left, and right pulmonary arteries. The main pulmonary artery measures up to 3.9 cm in diameter. There are calcified plaques of the thoracic aorta. There is aneurysmal dilatation of the ascending thoracic aorta measuring up to 4.0 cm. There are degenerative changes of the thoracic spine. There is no demonstrated abnormality of the visualized upper abdomen. CT/Chest without Contrast IMPRESSION: Interval resolution of spiculated 1 cm nodule of the right upper lobe seen previously. Dilatation of the main, left, and right pulmonary arteries. The main pulmonary artery measures up to 3.9 cm in diameter. This may be associated with pulmonary hypertension. Aneurysmal dilatation of the ascending thoracic aorta measuring up to 4.0 cm. Electronically Signed: Kentrell Fowler MD at 16:31 EDT , Service support ,
== END | disposition home or self-care (01) ==
LOC: CT 13:02
PROVIDERS: Family Provider Internal Medicine; PCP Internal Medicine; Referring Provider Internal Medicine Critical Care Medicine; Visit Provider Internal Medicine Critical Care Medicine
DX: R91.1 Solitary pulmonary nodule (principal)
CPT/HCPCS: 71250

== ENCOUNTER 2019-05-08 08:25 | Emergency (ER) | payer MEDICARE, OTHER, SELFPAY ==
[2019-03-21 09:55] VITALS: BMI 25.9
[2019-05-08 08:26] VITALS: BP 153/88; PULSE 128; RESP 31; TEMP 36.2; O2SAT 98; BMI 26.6
--- NOTE | 2019-05-08 08:39 | RAD_ITS ---
STUDY: X-RAY CHEST REASON FOR EXAM: Male, 74 years old. Chest pain. Jaw pain with radiation to the right arm. TECHNIQUE: Single AP portable view of the chest. COMPARISON: Comparison is made with prior study dated May 15, 2017. FINDINGS: EKG electrodes are seen. Stable elevation of the right hemidiaphragm. Stable mild increased markings at the left lung base suggestive of scarring. There is no demonstrated pleural abnormality. There is borderline cardiomegaly. Normal mediastinum and cari. Normal visualized pulmonary arteries. There is atherosclerotic calcification of the aortic arch with tortuosity. There are diffuse degenerative changes of the visualized thoracic spine. Normal visualized ribs, clavicles, and shoulders. There is no demonstrated abnormality of the visualized soft tissue structures of the upper abdomen. RAD/Chest 1 View (Portable) IMPRESSION: Stable examination demonstrating increased markings at the left lung base suggestive of scarring. Electronically Signed: Maxi Austin, at 9:06 EDT , Service support ,
--- NOTE | 2019-05-08 08:39 | EKG12_ITS ---
Test Reason : CP Blood Pressure : / mmHG Vent. Rate : 144 BPM Atrial Rate : 086 BPM P-R Int : 000 ms QRS Dur : 128 ms QT Int : 326 ms P-R-T Axes : 000 070 013 degrees QTc Int : 504 ms Atrial fibrillation with rapid ventricular response with premature ventricular or aberrantly conducte d complexes Right bundle branch block Abnormal ECG Confirmed by CARY MERAZ, RYLAN ([id number]), associate entertainment editor GENARO ISRAEL ([id number]) on 05/10/2019 11:51:32 AM Referred By: BENOIT Confirmed By:RYLAN TOWNSEND MD
--- NOTE | 2019-05-08 08:48 | ED.VIS.GEN ---
History of Present Illness Chief Complaint: Chest Pain Informant: Patient Onset: Today, Hours - 2 Context: Sudden Onset Timing: Continuous Current Severity: Moderate Maximum Severity: Moderate Narrative: Patient presents with chest pain on the left with radiation to his left jaw. He has coronary artery disease however this feels different than prior episodes. He denies fever chills cough or congestion. He denies radiation to his back. There is no tearing sensation. He has no shortness of breath. He has no nausea vomiting or abdominal pain. He denies any palpitations. Prior similar symptoms: No Recent Illness/Hospitalization: No Past Medical History - Allergies and Home Meds Allergies/Adverse Reactions: Allergies hydromorphone [From Dilaudid] Allergy (Severe, Verified 05/08/19 08:35) Unknown melon Adverse Reaction (Severe, Verified 05/08/19 08:35) Unknown promethazine [From Phenergan] Adverse Reaction (Severe, Verified 05/08/19 08:35) Unknown Opioids - Morphine Analogues Adverse Reaction (Verified 05/08/19 08:35) Vomiting Primary Care Physician: Jonny Srerato [Primary Care Provider] - Prior records reviewed: Yes Past Medical History: - - Diabetes, hypertension, hypercholesterolemia, coronary artery disease Surgical History: - - ESWL, Coronary stents - multiple, right hernia Lives: Spouse/ Significant Other Smoking Status: Former smoker - Family History Maternal Family History: Family History (Last Reviewed 10/07/18 @ 09:01 by Megan Zepeda) Father Cirrhosis Mother Cancer Family History: Reports: - - No coronary artery disease Paternal Family History: Family History (Last Reviewed 10/07/18 @ 09:01 by Megan Zepeda) Father Cirrhosis Mother Cancer Family History: Reports: - - No coronary artery disease Review of Systems General: Denies: Fever Eyes: Denies: Visual changes - bilaterally Cardiovascular: Reports: Chest pain. Denies: Palpitations, Heart racing Respiratory: Denies: Dyspnea, Cough Gastrointestinal: Denies: Abdominal pain, Nausea Genitourinary: Denies: Dysuria Musculoskeletal: Denies: Myalgias Skin: Denies: Rash Neurological: Reports: Weakness Psych: Denies: Depression Endocrine: Denies: Polyuria Hematologic: Denies: Easy bruising Allergy: Denies: Uticaria Physical Exam Vital Signs/Narrative: Vital Signs Temp Pulse Resp BP Pulse Ox 05/08/19 08:26 97.1 F L 128 H 31 H 153/88 H 98 General: Well nourished, Well developed Head: Normocephalic, Atraumatic ENT: Moist mucous membranes, No rhinorrhea Neck: Supple Cardiovascular: Irregular, Tachycardia Respiratory: No distress, CTA bilaterally Abdomen: Soft, Nontender, Nondistended Rectal: Deferred Back: Nontender, Normal Inspection Extremities: Nontender, No edema Skin: Normal color Neurological: Alert, Oriented x3, Normal Strength Psychological: Normal affect Diagnostic/Tx/Re-eval Chest X-Ray - ED: 1 View, Read by Radiologist, Unchanged - Rhythm Strip Rhythm Strip: A-fib Rate: 140 Ectopy: None - EKG Initial EKG Interpretation: Atrial Fibrillation, - - Right bundle branch block, A. fib, heart rate 144. No ischemic changes. Normal QTc interval. Interpreted by emergency doctor - Medical Decision Making She was given 20 mg of Cardizem. He is now converted and has been in sinus rhythm. His symptoms started 2 hours prior to arrival. 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 At this time his heart rate is in the 60s and is in sinus rhythm he does not meet criteria for anticoagulation. I believe he is stable for discharge I did tell him that if this reoccurs he will need to be reevaluated, my worry is that he has chronic renal insufficiency and may have to be placed on Coumadin. He understands all this, if he gets similar symptoms he will return. Otherwise I believe he is stable for discharge ED Disposition - [facility] for ED [facility]: Atrial fibrillation Instructions: Atrial Fibrillation, What Is Atrial Flutter/Atrial Fibrillation? Referrals: Wilfrido Morocho MD [STAFF PHYSICIAN] - 2 Days
[2019-05-08 08:49] LABS: Absolute Lymphocyte Count 1.67 X10^3/uL (0.83-4.51); Basophil# 0.05 X10^3/uL; Basophil% 0.6 % (0-1); Eosinophil# 0.33 X10^3/uL; Eosinophils% 3.7 % (0-5); Hematocrit 46.6 % (40-54); Hemoglobin 16.1 g/dL (13.0-16.5); Lymphocyte # 1.67 X10^3/ul (4.0); Lymphocyte % 18.7 % (19-41); Mean Corp Hgb Conc 34.5 g/dL (32-36); Mean Corpuscular Hgb 33.1 pg (27.0-32.0); Mean Corpuscular Volume 95.9 fL (80-94); Monocyte# 0.87 X10^3/uL; Monocyte% 9.8 % (0-10); NRBC Flagged by Analyzer 0 % (0-5); Neutrophil # 5.97 X10^3/uL (2.7-7.7); Neutrophil % 66.9 % (47-70); Platelet Count 216 K/mm3 (150-450); RBC Distribution Width CV 12.9 % (11.6-14.6); Red Blood Count 4.86 M/mm3 (4.6-6.2); White Blood Count 8.9 K/mm3 (4.4-11.0)
[2019-05-08] MEDS: dilTIAZem 25 MG/5 ML Vial 20 MG IV BOLUS (08:54)
[2019-05-08 09:03] LABS: Anion Gap 8 (5-15); BUN 39 mg/dL (7-18); BUN/Creat Ratio 20.5 RATIO (10-20); Calcium,Total 9.3 mg/dL (8.5-10.1); Chloride 106 mmol/L (98-107); EST Glomerular Filtration Rate 37 mL/min (>60); Est Glom Filt Rate - Afr Amer 45 mL/min (>60); Estimated Creatinine Clearance 34.15 ml/min; Glucose 227 mg/dL (74-106); Sodium Level 138 mmol/L (136-145)
[2019-05-08 10:42] VITALS: RESP 18
== END 2019-05-08 10:44 | disposition home or self-care (01) ==
PROVIDERS: Emergency Provider Emergency Medicine; Family Provider Internal Medicine; PCP Internal Medicine
DX: I48.91 Unspecified atrial fibrillation (principal); I45.10 Unspecified right bundle-branch block; I25.10 Atherosclerotic heart disease of native coronary artery without angina pectoris; E11.9 Type 2 diabetes mellitus without complications; I10 Essential (primary) hypertension; E78.00 Pure hypercholesterolemia, unspecified; Z95.5 Presence of coronary angioplasty implant and graft; Z79.82 Long term (current) use of aspirin; Z79.4 Long term (current) use of insulin; Z79.84 Long term (current) use of oral hypoglycemic drugs; Z79.899 Other long term (current) drug therapy; Z87.891 Personal history of nicotine dependence
CPT/HCPCS: 71045; 80048; 84484; 85025; 93005; 96374; 99284; A4216

== ENCOUNTER 2019-05-22 05:44 | Emergency (ER) | payer MEDICARE, OTHER, SELFPAY ==
[2019-05-22 05:45] VITALS: BP 151/98; PULSE 126; RESP 24; TEMP 36.6; O2SAT 97; BMI 26.1
--- NOTE | 2019-05-22 05:46 | ED.RN ---
CALLED FOR EKG PER RN REQUEST, PULLED OLD EKGS FOR
--- NOTE | 2019-05-22 06:07 | EKG12_ITS ---
Test Reason : CP Blood Pressure : / mmHG Vent. Rate : 135 BPM Atrial Rate : 129 BPM P-R Int : 000 ms QRS Dur : 128 ms QT Int : 344 ms P-R-T Axes : 000 031 -27 degrees QTc Int : 516 ms Atrial fibrillation with rapid ventricular response with premature ventricular or aberrantly conducte d complexes Right bundle branch block T wave abnormality, consider inferior ischemia Abnormal ECG Confirmed by TERESA MERAZ, KENJI ([id number]), metropolitan editor MILO TRAN ([id number]) on 05/22/2019 1:24:14 PM Referred By: RACHEAL Confirmed By:KENJI MOORE MD
[2019-05-22] MEDS: dilTIAZem 25 MG/5 ML Vial IV BOLUS (06:14)
[2019-05-22 06:16] LABS: Absolute Lymphocyte Count 1.81 X10^3/uL (0.83-4.51); Absolute Neutrophil Count 4.6 X10^3/uL (2.0-7.7); Basophil# 0.05 X10^3/uL; Basophil% 0.7 % (0-1); Eosinophil# 0.35 X10^3/uL; Eosinophils% 4.6 % (0-5); Hematocrit 50.2 % (40-54); Hemoglobin 16.9 g/dL (13.0-16.5); Lymphocyte # 1.81 X10^3/ul (4.0); Lymphocyte % 23.7 % (19-41); Mean Corp Hgb Conc 33.7 g/dL (32-36); Mean Corpuscular Hgb 32.4 pg (27.0-32.0); Mean Corpuscular Volume 96.2 fL (80-94); Monocyte# 0.79 X10^3/uL; Monocyte% 10.3 % (0-10); NRBC Flagged by Analyzer 0 % (0-5); Neutrophil # 4.62 X10^3/uL (2.7-7.7); Neutrophil % 60.4 % (47-70); Platelet Count 195 K/mm3 (150-450); RBC Distribution Width CV 12.8 % (11.6-14.6); RBC Distribution Width SD 45.3 fl (35.1-43.9); Red Blood Count 5.22 M/mm3 (4.6-6.2); White Blood Count 7.6 K/mm3 (4.4-11.0)
--- NOTE | 2019-05-22 06:16 | ED.VISSUMM ---
- ER Visit Summary Date of Service: 05/22/19 Chief Complaint: Chest pain History of Present Illness: The patient is a 74 M who presents with chest pain and palpitations that began this morning. Patient states he woke up with palpitations this morning. Patient describes the pain is dull and throbbing. Patient states the pain is over the substernal area. Patient states nothing makes the pain better or worse. Patient admits to some shortness of breath and palpitations. Patient denies any nausea, vomiting, diaphoresis, cough, or fevers. Patient denies any lightheadedness or dizziness. Patient had a similar episode recently it was admitted to the hospital. Patient converted back to a normal sinus rhythm prior to discharge. Physical Examination: Vital signs are stable except for tachycardia of 126 and a blood pressure of 151/98. Patient also has a mild tachypnea of 24. Patient is afebrile. Patient is in no acute distress. Patient is resting comfortably. Oral mucosa is pink and moist. Neck is supple. Trachea is midline. There is no JVD noted. Heart was irregularly irregular and tachycardic. Lungs are clear and equal bilaterally. Abdomen is soft. Bowel sounds are normal. There is no tenderness. Cranial nerves II through XII are intact. There are no focal motor or sensory deficits noted. Test Results: EKG showed atrial fibrillation with a rate of 135. There are occasional PACs noted as well. There is a right bundle branch block pattern noted. There are no acute ST or T wave changes. This was unchanged compared to previous EKG dated 05/08/2019. PA and lateral chest x-rays obtained. There is no acute cardiopulmonary process. This was interpreted by the radiologist and myself. CBC was normal. Basic metabolic profile showed a BUN of 31 and creatinine of 1.81. This is chronic for the patient. Troponin was less than 0.015. Emergency Department Course and Treatment: Patient was given Cardizem IV here. Patient converted to normal sinus rhythm with a rate of 53. Patient is feeling better on reevaluation. Patient was instructed to follow-up with his operating room registered nurse in 2 to 3 days. Patient understood and was agreeable with the plan. All questions were answered. Disposition: Discharge home Impression: Atrial fibrillation This note was generated with Medisseation software. It may contain incorrect words, spelling, and punctuation that were not noted in review of the chart prior to signing ED Disposition - Plan for ED Patient: Disposition: Home or Assisted Living Diagnosis: Atrial fibrillation Instructions: Atrial Fibrillation Referrals: Jonny Serrato [Primary Care Provider] - 3-5 Days Additional Instructions: Follow-up with Dr. Mario in 2 to 3 days for further management of your atrial fibrillation.
--- NOTE | 2019-05-22 06:26 | RAD_ITS ---
STUDY: X-RAY CHEST REASON FOR EXAM: Male, 74 years old. Atrial fibrillation with shortness of breath. TECHNIQUE: PA and lateral views of the chest. COMPARISON: May 08, 2019 FINDINGS: There is moderate elevation of the right hemidiaphragm. The left lung is hyperexpanded. There is no evidence for airspace consolidation. Cardiac monitoring leads are present. There is no demonstrated pleural abnormality. Normal size heart. Normal mediastinum and cari. Normal visualized pulmonary arteries. Normal visualized aortic arch and descending thoracic aorta. Normal visualized thoracic spine. Normal visualized ribs, clavicles, and shoulders. There is no demonstrated abnormality of the visualized soft tissue structures of the upper abdomen. RAD/Chest PA and Lateral IMPRESSION: No radiographic evidence of acute cardiopulmonary disease. Electronically Signed: Tatyana Ramos MD at 6:55 EDT , Service support ,
[2019-05-22 07:17] VITALS: BP 118/60; PULSE 52; RESP 18; O2SAT 99
[2019-05-22 07:25] LABS: Anion Gap 6 (5-15); BUN 31 mg/dL (7-18); BUN/Creat Ratio 17.1 RATIO (10-20); Calcium,Total 9.4 mg/dL (8.5-10.1); Chloride 108 mmol/L (98-107); Creatinine, Serum 1.81 mg/dL (0.70-1.30); EST Glomerular Filtration Rate 39 mL/min (>60); Est Glom Filt Rate - Afr Amer 47 mL/min (>60); Estimated Creatinine Clearance 35.85 ml/min; Glucose 137 mg/dL (74-106); Potassium 4.3 mmol/L (3.5-5.1); Sodium Level 140 mmol/L (136-145)
[2019-05-22 07:50] VITALS: BP 119/58; PULSE 52; RESP 18; O2SAT 99
== END 2019-05-22 07:51 | disposition home or self-care (01) ==
PROVIDERS: Emergency Provider Emergency Medicine; Family Provider Internal Medicine; PCP Internal Medicine
DX: I48.91 Unspecified atrial fibrillation (principal); I45.10 Unspecified right bundle-branch block; E11.51 Type 2 diabetes mellitus with diabetic peripheral angiopathy without gangrene; E11.22 Type 2 diabetes mellitus with diabetic chronic kidney disease; N18.9 Chronic kidney disease, unspecified; J44.9 Chronic obstructive pulmonary disease, unspecified; Z79.4 Long term (current) use of insulin; Z79.899 Other long term (current) drug therapy; Z79.02 Long term (current) use of antithrombotics/antiplatelets; Z79.82 Long term (current) use of aspirin
CPT/HCPCS: 71046; 80048; 84484; 85025; 93005; 96374; 99284; A4216

== ENCOUNTER → 2019-06-09 13:22 | Outpatient (CLI) | payer MEDICARE, OTHER, SELFPAY ==
[2019-05-22 05:45] VITALS: BMI 26.1
--- NOTE | 2019-06-09 13:27 | ECHOD_ITS ---
Reason For Study: Cardiomyopathy Procedure This was a 2D Doppler, Color Flow transthoracic echocardiogram. The exam was of adequate technical quality. Exam performed in department. Left Ventricle Normal LV size. Left ventricular systolic function is normal. The estimated ejection fraction is 65 %. Diastolic function is indeterminate. No regional wall motion abnormalities noted. Right Ventricle Normal RV size. Normal systolic function. Atria Normal left atrium. Normal right atrium. No doppler evidence for ASD. Mitral Valve There is mild mitral annular calcification. Extension of the mitral annular calcification onto the base of the posterior mitral valve leaflet. Trivial mitral valve insufficiency. Tricuspid Valve Normal tricuspid valve. Trivial tricuspid valve insufficiency. Right ventricular systolic pressure estimated to be 27 mmHg. Aortic Valve Trisinus/trileaflet aortic valve. Mild diffuse aortic valve thickening. Mild focal aortic valve calcification. Mild (1+) aortic valve insufficiency. Pulmonic Valve The pulmonic valve is not well visualized. Great Vessels Borderline enlarged to mildly dilated aortic root / ascending aorta. Pericardium/Pleural No pericardial effusion. MMode/2D Measurements & Calculations LVIDd: 4.1 cm IVSd: 1.4 cm Ao root diam: 3.9 cm LVIDs: 2.8 cm LVPWd: 1.0 cm RVDd: 4.1 cm FS: 32.4 % LAV(MOD-bp): 31.3 ml LVAd ap4: 20.9 cm2 SV(MOD-sp4): 36.2 ml LAV(MOD-bp) Indexed: 15.7 ml/m2 EDV(MOD-sp4): 51.1 ml LAV(MOD-sp2): 38.1 ml EDV(sp4-el): 51.0 ml LAV(MOD-sp4): 26.3 ml LVAs ap4: 9.9 cm2 ESV(MOD-sp4): 14.9 ml ESV(sp4-el): 14.4 ml EF(MOD-sp4): 70.9 % EF(sp4-el): 71.8 % SV(sp4-el): 36.6 ml LA A4 area: 13.1 cm2 LA dimension(2D): 2.7 cm RA A4 area: 10.7 cm2 Doppler Measurements & Calculations MV E max hal: 64.5 cm/sec Lat Peak E' Hal: 9.0 cm/sec Med Peak E' Hal: 4.6 cm/sec MV A max hal: 90.2 cm/sec E/E' lat: 7.1 E/E' med: 14.1 MV E/A: 0.72 Ao V2 max: 109.5 cm/sec LV V1 max: 85.3 cm/sec PA V2 max: 91.5 cm/sec Ao max P.8 mmHg LV V1 max P.9 mmHg Ao V2 mean: 78.8 cm/sec Ao mean P.7 mmHg Ao V2 VTI: 24.1 cm TR max hal: 247.0 cm/sec TR max P.4 mmHg Interpretation Summary Left ventricular systolic function is normal. The estimated ejection fraction is 65 %. There is mild mitral annular calcification. Extension of the mitral annular calcification onto the base of the posterior mitral valve leaflet. Trivial mitral valve insufficiency. Trivial tricuspid valve insufficiency. Mild diffuse aortic valve thickening. Mild focal aortic valve calcification. Mild (1+) aortic valve insufficiency. Borderline enlarged to mildly dilated aortic root / ascending aorta. Right ventricular systolic pressure estimated to be 27 mmHg. Diastolic function is indeterminate. Ordering Physician: ROCKY PRO Referring Physician: Jonny Serrato Performed By: Akua Lux, BRANDICS, RVT
== END ==
PROVIDERS: Family Provider Internal Medicine; PCP Internal Medicine
DX: I48.0 Paroxysmal atrial fibrillation (principal)
CPT/HCPCS: 93306

== ENCOUNTER → 2020-04-30 13:28 | Outpatient (CLI) | payer MEDICARE, OTHER, SELFPAY ==
[2019-09-19 07:17] VITALS: BMI 26.5
--- NOTE | 2020-04-30 13:31 | CT_ITS ---
STUDY: CT CHEST WITHOUT CONTRAST REASON FOR EXAM: Male, 75 years old. HEMOPTYSIS. COPD RADIATION DOSAGE (If Supplied By Facility): CTDIvol = ( 15.36 ) mGy, DLP = ( 575.79 ) mGycm TECHNIQUE: Transaxial imaging was performed without the administration of intravenous contrast material. Individualized dose optimization techniques were used for this CT. COMPARISON: CT of the chest 03/02/2019 PA and lateral chest 04/30/2020 FINDINGS: There is loss of volume in the right hemithorax with elevation of the right hemidiaphragm and minor atelectasis. There is minor interstitial thickening and emphysematous changes.. There is no demonstrated pleural abnormality. Heart is normal size. There is multivessel coronary artery disease. Mildly enlarged mediastinal nodes the largest measuring 1.4 x 1.1 cm. Normal hilar regions. Pulmonary arteries are dilated consistent with pulmonary hypertension.. Atherosclerotic changes of the aorta with mild aneurysmal dilatation of the ascending aorta measuring approximately 4.4 x 3.7 cm Dorsal spine demonstrates degenerative change There is no demonstrated abnormality of the visualized upper abdomen. CT/Chest without Contrast IMPRESSION: Mild diffuse interstitial thickening and emphysematous changes.. No focal infiltration or pulmonary nodule . ASHD with mild aneurysmal dilatation of the ascending aorta and multi focal coronary artery disease Electronically Signed: Bassem Greenwood MD at 20:43 EDT , Service support ,
--- NOTE | 2020-04-30 13:40 | RAD_ITS ---
STUDY: X-RAY CHEST REASON FOR EXAM: Male, 75 years old. Cough and sore throat x 1 month. TECHNIQUE: PA and lateral views of the chest. COMPARISON: 05/22/2019 FINDINGS: Stable elevation of the left hemidiaphragm The lungs are clear and expanded. There is no demonstrated pleural abnormality. Normal size heart. Normal mediastinum and cari. Normal visualized pulmonary arteries. Normal visualized aortic arch and descending thoracic aorta. Normal visualized thoracic spine. Normal visualized ribs, clavicles, and shoulders. There is no demonstrated abnormality of the visualized soft tissue structures of the upper abdomen. RAD/Chest PA and Lateral IMPRESSION: No acute pulmonary process Electronically Signed: Tanner Oseguera MD at 16:35 EDT , Service support ,
== END ==
PROVIDERS: PCP Internal Medicine; Referring Provider Internal Medicine; Visit Provider Internal Medicine
DX: R04.2 Hemoptysis (principal)
CPT/HCPCS: 71046; 71250

== ENCOUNTER 2020-07-15 06:23 | Outpatient (CLI) | payer MEDICARE, OTHER, SELFPAY ==
[2019-09-19 07:17] VITALS: BMI 26.5
--- NOTE | 2020-07-15 08:24 | PCM.CONS.C ---
Reason for Consult Date of Consultation: 07/15/20 Reason for Consultation: Chest discomfort History of Present Illness: The patient is a 75 year old M with a significant extensive cardiac history dating back to 1998 when he had his first myocardial infarction. He presented here for a stress test referred by his primary ornamental metal fabricator apprentice. He apparently has been having chest discomfort at home described as a heaviness sometimes with exertion and going away with rest. He presented here for the stress test and shortly after exercising on the treadmill he developed chest discomfort. This had to be changed to a pharmacologic stress test. He did develop significant EKG changes requiring sublingual nitroglycerin administration. I was called to see him in the noninvasive lab. He has been having shortness of breath and was previously seen by the outside plant supervisor in September of this year. He was noted to have obstructive sleep apnea as well as with the tobacco use. His past medical history is extensive with cardiac catheterizations performed in March 1999, April 1999, April 2006, August 2006, October 2006, October 2007, March 2008, October 2008, November 2009. He also had a stress test in 2010 which he did not perform well and required an emergency cardiac catheterization. His last catheterization appeared to have been in 2013. I do not have the report of the above but it appears that one vessel was 100% occluded and the 2 other vessels had moderate disease. He also has a history of atrial fibrillation for which she has been on Xarelto. He appears to have previously had a right thalamic stroke in 2011. And he also has kidney disease. In addition he does have evidence of carotid artery disease and is being seen by the peripheral vascular specialist. [] Past Medical History Allergies/Adverse Reactions: Allergies hydromorphone [From Dilaudid] Allergy (Severe, Verified 09/19/19 09:55) Unknown melon Adverse Reaction (Severe, Verified 09/19/19 09:55) Unknown promethazine [From Phenergan] Adverse Reaction (Severe, Verified 09/19/19 09:55) Unknown Opioids - Morphine Analogues Adverse Reaction (Verified 09/19/19 09:55) Vomiting Home Medications: Ambulatory Orders Medication Instructions Recorded Amlodipine [Norvasc] 2.5 mg PO BID 05/15/17 Ascorbic Acid [Vitamin C] 1,000 mg PO DAILY 05/15/17 Aspirin [Aspirin, Baby] 81 mg PO DAILY@0800 05/15/17 Cholecalciferol (Vitamin D3) 400 unit PO DAILY 05/15/17 [Vitamin D3] Clopidogrel Bisulfate [Clopidogrel] 75 mg PO DAILY 05/15/17 Diphenhydramine HCl [Allergy] 25 mg PO BID 05/15/17 Famotidine 20 mg PO BID 05/15/17 Folic Acid 0.8 mg PO DAILY@0800 05/15/17 Insulin Glargine,Hum.rec.anlog 15 unit SUBCUT QHS 05/15/17 [Lantus] Insulin Lispro [Humalog] 5 unit SUBCUT BREAKFAST 05/15/17 Insulin Lispro [Humalog] 5 unit SUBCUT LUNCH 05/15/17 Insulin Lispro [Humalog] 7 unit SUBCUT DINNER 05/15/17 Lisinopril [Zestril] 40 mg PO DAILY 05/15/17 Propranolol HCl 80 mg PO BID 05/15/17 Simvastatin 80 mg PO QHS 05/15/17 Vitamin E 400 unit PO DAILY 05/15/17 Acetaminophen [Tylenol Tablet] 650 mg PO Q4H PRN PRN tab 05/17/17 metFORMIN HCl [Glucophage] 1,000 mg PO DAILY 05/30/18 albuterol sulfate 90 mcg/actuation 2 puff INHALATION Q6H PRN 09/22/18 aerosol inhaler Rivaroxaban [Xarelto] 15 mg PO DAILY 05/22/19 Past Medical History (Chronic Problems): Chronic Problems (Last Reviewed 09/19/19 @ 09:55 by Megan Dexter) Nicotine dependence, cigarettes, in remission (Chronic) SOB (shortness of breath) (Chronic) Thoracic aortic aneurysm (Chronic) Vitamin B12 deficiency (Chronic) Kidney disease, chronic, stage II (GFR 60-89 ml/min) (Chronic) PVD (peripheral vascular disease) (Chronic) Past heart attack (Chronic) Blockage of coronary artery of heart (Chronic) CVA (cerebral vascular accident) (Chronic) Hyperlipemia (Chronic) Emphysema lung (Chronic) RENEE (obstructive sleep apnea) (Chronic) Pulmonary nodule (Chronic) CAD (coronary artery disease) (Chronic) PAD (peripheral artery disease) (Chronic) DM2 (diabetes mellitus, type 2) (Chronic) HTN (hypertension) (Chronic) CKD (chronic kidney disease) stage 3, GFR 30-59 ml/min (Chronic) COPD (chronic obstructive pulmonary disease) (Chronic) Surgical History: - - ESWL, Coronary stents - multiple, right hernia Psychiatric History: No pertinent psych hx - *Family History Maternal Family History: Family History (Last Reviewed 09/19/19 @ 09:55 by Megan Dexter) Father Cirrhosis Mother Cancer History Items: - - No coronary artery disease Paternal Family History: Family History (Last Reviewed 09/19/19 @ 09:55 by Megna Dexter) Father Cirrhosis Mother Cancer History Items: - - No coronary artery disease Lives: Spouse/ Significant Other Smoking Status: Former smoker Alcohol: None Drugs: None Review of Systems - Review of Systems General: Denies: Fever, Night Sweats, Fatigue HEENT: Denies: Vision Change Cardiovascular: Reports: Chest Discomfort, Chest Discomfort at Rest, Chest Discomfort with Exertion, Shortness of Breath. Denies: Orthopnea, PND, Peripheral Edema, Palpitations, Lightheadedness, Dizziness, Near Syncope, Syncope Respiratory: Denies: Cough, Sputum Production, Hemoptysis Gastrointestinal: Denies: Hematemesis, Hematochezia, Melena Genitourinary: Denies: Dysuria, Hematuria Muscoloskeletal: Denies: Myalgias Skin: Denies: Rash Neurological: Denies: Dizziness Psychiatric: Denies: Anxiety Endocrine: Denies: Unexplained Weight Loss Hematologic/ Lymphatic: Denies: Anemia Subjectve: Pleasant gentleman in no distress at this time except having mild chest discomfort. Objective: Body Mass Index (BMI) 26.5 General: Awake, Alert, Oriented x 3 HEENT: PERRL, EOMI, Sclera Non Icteric Neck: Supple, Good ROM, No Lymph Node Enlargement Lungs: Clear to auscultation Cardiovascular: Regular Rhythm, Normal S1, Normal S2, No Murmurs, No Rubs, No Gallops Vascular: No Carotid Bruits, Normal Femoral Pulses, Normal Radial Pulses, Normal Dorsalis Pedal Pulse, Normal Posterior Tibial Pulses Abdomen: Bowel Sounds Present, Soft, Non Tender, No HSM, No Organomegaly Extremities: No Cyanosis, No Clubbing, No edema Musculoskeletal: No Erythema Lymphatic: No Lymph Node Enlargement Neurological: No Focal Motor or Sensory Deficit Psych/Mental Status: Appropriate Rhythm: EKG: Normal sinus rhythm with ST depression noted in the inferolateral leads on the stress test ECHO: Stress Test: Results pending but significant EKG changes noted on the stress test. Cardiac Cath: PCI: CT Surgery: Holter monitor: EPS: PPM: CXR: Chest CT Scan: Assessment/Plan 1. Accelerated angina with abnormal stress test. Patient presents for a stress test and is noted to have EKG changes on stress test with continued chest discomfort. The above is suggestive of an unstable coronary lesion. My recommendation at this time would be to finish the scan and schedule him for a cardiac catheterization. The risk benefits and alternatives have been explained to him he understands and agrees to proceed. He has previously been on an anticoagulant but we will attempt this via the right radial approach. 2. Hypertension His blood pressure appears to be under decent control at this time the plan will be to continue him on the current medical therapy. How are you He does have preserved left ventricular systolic function noted on an echocardiogram performed in 2019. 3. Hyperlipidemia. He will remain on his high intensity statin at this particular time. 4. Lung nodule He will continue to follow with the outside plant supervisor regarding the above. Thank you for allowing me to participate in the care of your patient. Please don't hesitate to call if any issues arise.
[2020-07-15 09:03] VITALS: BMI 25.8
[2020-07-15 09:15] LABS: Absolute Neutrophil Count 3.3 X10^3/uL (2.0-7.7); Basophil# 0.04 X10^3/uL; Basophil% 0.7 % (0-1); Eosinophil# 0.16 X10^3/uL; Hematocrit 44.4 % (40-54); Hemoglobin 14.7 g/dL (13.0-16.5); Lymphocyte % 22.4 % (19-41); Mean Corp Hgb Conc 33.1 g/dL (32-36); Mean Corpuscular Hgb 32.2 pg (27.0-32.0); Mean Corpuscular Volume 97.4 fL (80-94); Mean Platelet Vol. 9.7 fl (6.2-12.0); Monocyte# 0.66 X10^3/uL; Monocyte% 12.3 % (0-10); NRBC Flagged by Analyzer 0 % (0-5); Neutrophil # 3.27 X10^3/uL (2.7-7.7); Platelet Count 165 K/mm3 (150-450); RBC Distribution Width CV 13.2 % (11.6-14.6); RBC Distribution Width SD 46.9 fl (35.1-43.9); Red Blood Count 4.56 M/mm3 (4.6-6.2); White Blood Count 5.4 K/mm3 (4.4-11.0)
[2020-07-15 09:29] LABS: Anion Gap 9 (5-15); BUN 28 mg/dL (7-18); BUN/Creat Ratio 14.1 RATIO (10-20); Calcium,Total 9.3 mg/dL (8.5-10.1); Chloride 107 mmol/L (98-107); Creatinine, Serum 1.99 mg/dL (0.70-1.30); EST Glomerular Filtration Rate 35 mL/min (>60); Est Glom Filt Rate - Afr Amer 42 mL/min (>60); Glucose 157 mg/dL (74-106); Potassium 4.4 mmol/L (3.5-5.1); Sodium Level 139 mmol/L (136-145)
--- NOTE | 2020-07-15 11:06 | STRESSREP ---
Stress Test Report Exercise myocardial perfusion stress test. 75-year-old male with a history of coronary artery disease. Stress protocol: Resting EKG demonstrates normal sinus rhythm with a rate of 60 bpm. Left atrial enlargement is present resting blood pressure is 1 and 38/60 8 mmHg. The patient exercised according to regular [place] protocol for a total duration of 2 minutes and 50 seconds. The heart rate attained at that time was noted to be 78 bpm. This was 58% of max impacted heart rate at a workload of 4.6 metabolic equivalents. At this time there was already [address] depression noted in leads II, III and aVF and less than 1 mm noted in lead V4 through V6. The final blood pressure was noted to be 138/64 mmHg. The patient was switched over to a pharmacologic myocardial perfusion stress test. 0.4 mg of regadenoson was infused per usual protocol followed by rapid intravenous saline flush injection continuous EKG monitoring was performed. At peak infusion there was approximately 1.[address] depression noted in leads II, III and aVF V4 through V6. The above was indicative of abnormal flow reserve and ischemia. The patient required administration of 3 sublingual nitroglycerin. At approximately 20 minutes post infusion normalization of EKG changes were noted. Myocardial perfusion protocol. 11.4 mCi of technetium 99m sestamibi was injected at rest. 0.4 mg of regadenoson was infused per usual protocol. At peak infusion 34.3 mCi of technetium 99m sestamibi was injected stress images were obtained stress and rest images were reconstructed and compared in the short axis vertical long horizontal long axis were obtained. Perfusion SPECT analysis: Review of the stress images demonstrate normal uptake of tracer noted in the septum and inferior wall. There is a medium size defect noted in the mid lateral wall which improves on the resting images. There is a small area in the mid lateral wall with a fixed defect noted. The above is suggestive of a moderate amount of lateral ischemia in the previously infarcted zone. Gated SPECT analysis: The gated ejection fraction is 23%. Conclusion: Abnormal pharmacologic myocardial perfusion stress test with high risk medium size lateral wall ischemia. Cardiomyopathy present.
--- NOTE | 2020-07-15 12:01 | ECHOD_ITS ---
Reason For Study: CAD/ASHD Procedure This was a 2D Doppler, Color Flow transthoracic echocardiogram. Exam performed in department. Left Ventricle Normal LV size. Left ventricular systolic function is normal. The estimated ejection fraction is 57 %. Stage 1 diastolic dysfunction. No regional wall motion abnormalities noted. Right Ventricle Normal RV size. Normal systolic function. Atria Normal left atrium. Normal right atrium. Mitral Valve Normal mitral valve. Tricuspid Valve Normal tricuspid valve. Mild tricuspid valve insufficiency. Pulmonary artery systolic pressure is 30 mmHg. Aortic Valve Trisinus/trileaflet aortic valve. Pulmonic Valve Normal pulmonic valve. Great Vessels Normal aortic root. The pulmonary artery is normal size. Normal inferior vena cava. Pericardium/Pleural No pericardial effusion. MMode/2D Measurements & Calculations LVIDd: 4.5 cm IVSd: 1.5 cm Ao root diam: 3.9 cm LVIDs: 2.9 cm LVPWd: 1.1 cm RVDd: 2.8 cm FS: 36.2 % LAV(MOD-bp): 56.4 ml LA A4 area: 19.6 cm2 LA dimension(2D): 3.1 cm LAV(MOD-bp) Indexed: 28.2 ml/m2 LAV(MOD-sp2): 53.1 ml LAV(MOD-sp4): 53.2 ml RA A4 area: 13.7 cm2 Time Measurements MV dec time: 0.29 sec Doppler Measurements & Calculations MV E max hal: 56.9 cm/sec Lat Peak E' Hal: 6.4 cm/sec Med Peak E' Hal: 3.7 cm/sec MV A max hal: 83.3 cm/sec E/E' lat: 8.9 E/E' med: 15.5 MV E/A: 0.68 Ao V2 max: 108.0 cm/sec AI max hal: 373.0 cm/sec LV V1 max: 83.3 cm/sec Ao max P.7 mmHg AI max P.6 mmHg LV V1 max P.8 mmHg Ao V2 mean: 76.2 cm/sec AI dec slope: 192.4 cm/sec2 LV V1 mean P.7 mmHg Ao mean P.6 mmHg AI P1/2t: 567.7 msec LV V1 mean: 63.7 cm/sec Ao V2 VTI: 23.4 cm LV V1 VTI: 21.5 cm PA V2 max: 80.4 cm/sec TR max hal: 254.0 cm/sec TR max P.8 mmHg Interpretation Summary Normal LV size. Left ventricular systolic function is normal. The estimated ejection fraction is 57 %. Stage 1 diastolic dysfunction. Ordering Physician: Wilfrido Morocho Referring Physician: Jonny Serrato Performed By: Hossein, Megan, RDCS, RVT
--- NOTE | 2020-07-15 12:02 | CL.D_ITS ---
Patient Name: SAL SPENCER Study Date: 07/15/2020 Performing: Wilfrido Morocho MD Ht: 70.07 inches 178 cm : 1945 Wt: 180.78 lbs 82 kg Age: 75 Gender: male BSA: 2 PROCEDURE(S) PERFORMED [id number] CLINICAL PROFILE AND INDICATIONS Indications: Worsening Angina Heart Failure: None Stress/Imaging Date: 07/15/2020Stress Test with SPECT MPI: Positive High Risk CAD Presentations: Unstable angina. CONCLUSIONS Severe coronary artery disease involving a totally occluded right coronary artery, previously stented left anterior descending artery with multiple sequential areas of 95% stenosis, moderately diseased mid left circumflex artery and high-grade large posterior lateral branch. Left ventricular systolic dysfunction. RECOMMENDATIONS Will consider high risk PCI versus bypass surgery. I discussed this with his primary apron man an d he would have an appointment made with him tomorrow with the films to discuss. DESCRIPTION OF PROCEDURE The patient arrived to the procedure lab. The risks and benefits of the procedure as well as a full d escription of our services here and current unavailability of surgical backup were fully explained to the patient and/or their significant other prior to the catheterization. The Timeout was completed, verifying the correct patient and procedure. The patient's procedural site was prepped and draped in the usual fashion. Local anesthetic was given subcutaneously to right radial region with Lidocaine 2% . Using a modified Seldinger technique, arterial access was obtained via the right radial artery, a 6 Fr sheath was inserted. Left Coronary Artery selective angiography was performed in multiple views u sing a 5 Fr. 4.0 [place] catheter. Right Coronary Artery selective angiography was then performed in mu ltiple views using a 5 Fr. 4.0 [place] catheter. CORONARY ANGIOGRAPHY DOMINANCE: Left Dominant LEFT HEART ASSESSMENT Left Ventricular Ejection Fraction: by Radionucleotide 23 % LEFT MAIN: Angiographically normal LEFT ANTERIOR DESCENDING ARTERY: PROX LAD: Previously placed stent has an instent 95 sequential % restenosis CIRCUMFLEX ARTERY: PROX CIRC: Mild luminal irregularities less than 30% MID CIRC: Previously placed stent has an instent 50 % restenosis 3RD LEFT PLV: 90 % Stenosis RIGHT CORONARY ARTERY: OSTIAL RCA: is occluded COLLATERAL FLOW: Collateral flow from Left to Right COMPLICATIONS No Complications PROCEDURE MEDICATIONS Versed 2 mg IV Versed 1 mg IV Heparin diluted in 23cc Heparinized saline. Patient given 10cc IA of this solution. 07/15/2020 11:31: 59 Verapamil 2.5mg, Ntg 100mcgs, 2000 units of Heparin diluted in 23cc Heparinized saline. Patient give n 10cc IA of this solution. 07/15/2020 11:31:59 IV Fluids: .9 NaCl IV started @ 100 ml/hr 07/15/2020 10:02:30 SUMMARY OF HEMODYNAMIC DATA Time AIR REST ECG 11:19:08 AO 109/52 (74) SA 11:34:56 AO 112/55 (77) 11:35:11 Signed By Wilfrido Morocho MD On 07/15/2020 12:01:26 PM Wilfrido Morocho MD
== END 2020-07-15 14:20 | disposition home or self-care (01) ==
LOC: CVS 06:23
PROVIDERS: Internal Medicine Cardiovascular Disease; PCP Internal Medicine; Referring Provider Internal Medicine; Visit Provider Internal Medicine
DX: J84.09 Other alveolar and parieto-alveolar conditions (principal); R06.00 Dyspnea, unspecified; R07.9 Chest pain, unspecified
CPT/HCPCS: 36415; 78452; 80048; 85025; 93017; 93306; 93454; 99152; 99153; A9500; J7040; Q9967; A4216; C1769; C1894; J2785

== ENCOUNTER 2021-03-28 13:26 | Emergency (ER) | payer MEDICARE, OTHER, SELFPAY ==
[2021-03-28 13:27] VITALS: BP 145/66; PULSE 68; RESP 22; TEMP 35.7; O2SAT 93; BMI 25.8
--- NOTE | 2021-03-28 13:47 | EKG12_ITS ---
Test Reason : Blood Pressure : / mmHG Vent. Rate : 067 BPM Atrial Rate : 067 BPM P-R Int : 170 ms QRS Dur : 082 ms QT Int : 400 ms P-R-T Axes : 034 -21 047 degrees QTc Int : 422 ms Normal sinus rhythm Normal ECG Confirmed by MELLY MERAZ, ZAY ([id number]), editor city GENARO ISRAEL ([id number]) on 03/31/2021 9:51:56 AM Referred By: KENJI Confirmed By:SOHAM PICKARD MD
--- NOTE | 2021-03-28 13:57 | ED.VIS.DYS ---
HPI History of Present Illness Chief Complaint: Shortness of Breath Informant: patient and spouse/S.O. Narrative Narrative: 76-year-old male presents the emergency department for the evaluation of dyspnea. Patient recently underwent cardiac catheterization and had 6 stents placed. He is currently on aspirin Brilinta and Xarelto for paroxysmal A. fib. He sees Dr. Morales for pulmonology here in [place]. He last saw them in 2019. He was noted on his pulmonary function testing at that time he had a restrictive lung mechanics with reduction in diffusing capacity. He has a history of obstructive sleep apnea but does not wear his CPAP. He has a history of right diaphragmatic paralysis. Echocardiogram in October 2018 demonstrated right ventricular systolic pressures of 28. Patient smoked 2 packs a day for 30 years and quit in 1983. He tells me that over the past week and a half his dyspnea has worsened particularly with exertion. He notes a cough that causes pain in the left chest which he has had before. He notes some rhinorrhea. No reported fevers. His primary care and special education instructor are in [facility]. [facility] Medical History (Updated 03/28/21 @ 16:[address] Lino Calderón, ) Atherosclerotic heart disease [place] coronary artery w/angina pectoris CKD (chronic kidney disease) stage 3, GFR 30-59 ml/min COPD (chronic obstructive pulmonary disease) CVA (cerebral vascular accident) DM2 (diabetes mellitus, type 2) Emphysema lung Essential (primary) hypertension Hyperlipemia Kidney disease, chronic, stage II (GFR 60-89 ml/min) Kidney stone on right side Nicotine dependence, cigarettes, in remission RENEE (obstructive sleep apnea) PAD (peripheral artery disease) Paroxysmal atrial fibrillation Pulmonary nodule Thoracic aortic aneurysm Vitamin B12 deficiency Home Medications amlodipine 2.5 mg PO DAILY 05/15/17 [History Last Taken 07/15/20] aspirin 81 mg PO DAILY@0800 05/15/17 [History Last Taken 07/15/20] famotidine 20 mg PO BID 05/15/17 [History Last Taken 07/15/20] insulin lispro 5 unit SUBCUT BREAKFAST 05/15/17 [History Last Taken 05/18/18] insulin lispro 7 unit SUBCUT LUNCH 05/15/17 [History Last Taken 05/17/18] insulin lispro 16 unit SUBCUT DINNER 05/15/17 [History Last Taken 05/17/18] propranolol 80 mg PO TID 05/15/17 [History Last Taken 07/15/20] acetaminophen 650 mg PO Q4H PRN PRN tab 05/17/17 [Rx Last Taken Unknown] albuterol sulfate 90 mcg/actuation aerosol inhaler 2 puff INHALATION Q6H PRN 09/22/18 [History Last Taken Unknown] rivaroxaban 15 mg PO DAILY 05/22/19 [History Last Taken 07/14/20] albuterol sulfate [Ventolin HFA] 2 puff INHALATION Q4H PRN PRN #1 inhaler 03/28/21 [Rx Last Taken Unknown] insulin glargine [Lantus U-100 Insulin] 13 unit SUBCUT QHS 03/28/21 [History Last Taken Unknown] losartan 25 mg PO DAILY 03/28/21 [History Last Taken Unknown] omeprazole 40 mg PO DAILY 03/28/21 [History Last Taken Unknown] prednisone 60 mg PO DAILY #15 tablet 03/28/21 [Rx Last Taken Unknown] Allergy/AdvReac Type Severity Reaction Status Date / Time hydromorphone [From Dilaudid] Allergy Severe Unknown Verified 03/28/21 13:30 melon AdvReac Severe Unknown Verified 03/28/21 13:30 promethazine [From Phenergan] AdvReac Severe Unknown Verified 03/28/21 13:30 Opioids - Morphine Analogues AdvReac Vomiting Verified 03/28/21 13:30 Family History Father Cirrhosis Mother Cancer lung Surgical History (Updated 03/28/21 @ 14:10 by Rossana Barfield) History of cardiac catheterization (07/15/20) History of carpal tunnel release History of coronary artery stent placement History of heart artery stent History of inguinal hernia repair Social History Smoking Status: Former smoker Tobacco: How many years used: 30 how long ago did patient quit smokin, 2ppd second hand exposure: Yes ROS ROS ED Constitutional Constitutional ED: Denies chills or weight loss Eyes Eyes: Denies change in vision or diplopia ENT ENT ED: Reports rhinorrhea; Denies ear pain or sore throat Cardiovascular Cardiovascular: Denies chest pain, orthopnea, palpitations or racing heartbeat Respiratory/Chest Respiratory/Chest: Reports cough, dyspnea and dyspnea on exertion; Denies orthopnea Gastrointestinal Gastrointestinal: Denies abdominal pain, diarrhea, nausea or vomiting Genitourinary Genitourinary ED: Denies dysuria, hematuria or urinary frequency Musculoskeletal Musculoskeletal: Denies arthralgias or myalgias Integumentary Denies abscess or rash Neurologic Neurologic: Denies headache(s) or weakness Psychiatric Psychiatric: Denies anxiety, depression, suicidal ideation or suicidal thoughts Endocrine Endocrinology: Denies polydipsia, polyphagia or polyuria Allergic/Immunologic Allergic/Immunologic ED: Denies mouth swelling, tongue swelling or urticaria EXAM Physical Exam Const Vital Signs: 03/28/21 13:27 03/28/21 14:11 03/28/21 14:18 Temperature 96.3 F L Temperature Source Temporal Pulse Rate 68 68 Respiratory Rate 22 H 24 H Respiratory Effort Normal Non-Labored Respiratory Depth Normal Respiratory Pattern Tachypnea Blood Pressure 145/66 H Blood Pressure Mean 92 Pulse Ox 93 96 Oxygen Delivery Method Room Air Room Air Room Air 03/28/21 15:34 Temperature Temperature Source Pulse Rate 63 Respiratory Rate 20 H Respiratory Effort Respiratory Depth Respiratory Pattern Blood Pressure 114/63 Blood Pressure Mean 80 Pulse Ox 97 Oxygen Delivery Method Room Air Positive well nourished and well developed General Appearance ED: well developed HEENT Reports normocephalic, head/scalp atraumatic and moist mucous membranes Eyes PERRL and EOMs intact bilaterally Neck no lymphadenopathy, supple and no JVD Resp normal respiratory effort and clear to auscultation bilaterally Cardio regular rate, regular rhythm and no murmurs GI normal to inspection, nondistended, normoactive bowel sounds and non-tender Palpation: soft Back/Spine no CVA tenderness and normal ROM Extremity normal to inspection General Extremety ED: Negative for edema General Extremity: Negative for edema Neuro oriented x3 and CN's II-XII intact bilaterally Sensorium / Orientation: alert Motor Exam: strength 5/5 throughout Psych mental status grossly normal Mood & Affect: Negative for depressed or tearful Skin no rashes or lesions noted and no wounds MDM MDM MDM Narrative Medical decision making narrative: Patient's white count is 6.1. Creatinine at baseline of 2.1. Troponin 14.8 BNP 186.4. Chest x-ray shows the elevated right hemidiaphragm as well as some increased markings in the right upper lobe. CT of the chest was obtained which demonstrates probable pneumonitis of the right upper lobe. Patient ambulated here in the department did not desaturate below 91%. He was tachypneic during this. I spoke with his qa automation architect and we are going to do a 5-day burst of prednisone as well as albuterol MDI. He will follow up in the office next week return if worsening or concerns. Lab Data Attestation: I reviewed the patient's lab results. Labs: Laboratory Results - last 24 hr 03/28/21 03/28/21 03/28/21 14:00 14:00 14:00 WBC 6.1 RBC 3.95 L Hgb 11.3 L Hct 35.4 L MCV 89.6 MCH 28.6 MCHC 31.9 L RDW Std Deviation 45.0 H RDW Coeff of Rosa 13.8 Plt Count 285 MPV 9.1 Immature Gran % (Auto) 0.500 Neut % (Auto) 71.4 H Lymph % (Auto) 14.7 L [place] % (Auto) 8.8 Eos % (Auto) 3.9 Baso % (Auto) 0.7 Absolute Neuts (auto) 4.4 Absolute Lymphs (auto) 0.90 Nucleated RBC % 0 Sodium 139 Potassium 4.0 Chloride 108 H Carbon Dioxide 23.0 Anion Gap 8 BUN 34 H Creatinine 2.19 H Estim Creat Clear Calc 28.70 Est GFR (MDRD) Af Amer 38 L Est GFR (MDRD) Non-Af 31 L BUN/Creatinine Ratio 15.5 Glucose 86 Calcium 9.1 Troponin I High Sens 14.8 B-Natriuretic Peptide 186.4 H Radiography Diagnostic Testing: Radiology Impression Chest X-Ray 03/28/21 14:18 IMPRESSION: Stable elevation of the right hemidiaphragm. Mild increased markings in the right mid lung. Follow-up is recommended. Electronically Signed: Maxi Austin MD at 14:35 EDT , Service support , Chest CT 03/28/21 14:59 IMPRESSION: Mild emphysema with subsegmental atelectasis or pneumonitis particularly in the right upper lobe. Imaging features can be seen with Covid 19 pneumonia, though are nonspecific and can occur with a variety of infectious and noninfectious processes. Electronically Signed: Sony Nicholson MD at 16:03 EDT Tel , Service support , EKG Initial EKG: Attestation: I personally reviewed and interpreted this EKG as follows: Comments: EKG demonstrates a normal sinus rhythm at a rate of 67 bpm. No concerning features of ACS or ectopy noted. Discharge Plan Triage Chief Complaint: Shortness of Breath ED Provider: Lino Calderón Dx/Rx/DC Orders Clinical Impression: Pneumonitis Prescriptions: New prednisone 20 MG tablet 60 mg PO DAILY Qty: 15 RF: 0 albuterol sulfate [Ventolin HFA] 1 INHALER inhaler 2 puff inhalation Q4H PRN PRN (Reason: Wheezing) Qty: 1 RF: 0 No Action ProAir HFA 90 mcg/actuation HFA aerosol inhaler 2 puff INHALATION Q6H PRN (Reason: Sob &/Or Wheezing) RF: 0 propranolol 80 MG tablet 80 mg PO TID RF: 0 amlodipine 2.5 MG tablet 2.5 mg PO DAILY RF: 0 famotidine 20 MG tablet 20 mg PO BID RF: 0 aspirin 81 MG tablet,chewable 81 mg PO DAILY@0800 RF: 0 insulin lispro 100 UNIT/ML cartridge 7 unit subcut LUNCH RF: 0 insulin lispro 100 UNIT/ML cartridge 5 unit subcut BREAKFAST RF: 0 insulin lispro 100 UNIT/ML cartridge 16 unit subcut DINNER RF: 0 acetaminophen 325 MG tablet 650 mg PO Q4H PRN PRN (Reason: fever, pain) RF: 0 rivaroxaban 15 MG tablet 15 mg PO DAILY RF: 0 Lantus U-100 Insulin 100 unit/mL solution 13 unit SUBCUT QHS RF: 0 omeprazole 40 mg capsule,delayed release(DR/EC) 40 mg PO DAILY RF: 0 losartan 25 mg tablet 25 mg PO DAILY RF: 0 Primary Care Provider: Jonny Serrato Referrals: Derrick Morales DO [STAFF PHYSICIAN] - As soon as possible (Please call to arrange follow-up as soon as possible) Jonny Serrato MD [Primary Care Provider] - Disposition Disposition: Home, Self Care
[2021-03-28 14:06] LABS: Absolute Neutrophil Count 4.4 X10^3/uL (2.0-7.7); Basophil# 0.04 X10^3/uL; Basophil% 0.7 % (0-1); Eosinophil# 0.24 X10^3/uL; Eosinophils% 3.9 % (0-5); Hematocrit 35.4 % (40-54); Hemoglobin 11.3 g/dL (13.0-16.5); Lymphocyte % 14.7 % (19-41); Mean Corp Hgb Conc 31.9 g/dL (32-36); Mean Corpuscular Hgb 28.6 pg (27.0-32.0); Mean Corpuscular Volume 89.6 fL (80-94); Mean Platelet Vol. 9.1 fl (6.2-12.0); Monocyte# 0.54 X10^3/uL; Monocyte% 8.8 % (0-10); NRBC Flagged by Analyzer 0 % (0-5); Neutrophil # 4.38 X10^3/uL (2.7-7.7); Neutrophil % 71.4 % (47-70); Platelet Count 285 K/mm3 (150-450); RBC Distribution Width CV 13.8 % (11.6-14.6); Red Blood Count 3.95 M/mm3 (4.6-6.2); White Blood Count 6.1 K/mm3 (4.4-11.0)
[2021-03-28] MEDS: Ipratropium/Albuterol Sulfate 3 ML AMPUL.NEB INHALATION (14:09)
[2021-03-28 14:11] VITALS: PULSE 68; RESP 21; RESP 24; O2SAT 96
[2021-03-28 14:18] VITALS: O2SAT 96
--- NOTE | 2021-03-28 14:18 | RAD_ITS ---
STUDY: X-RAY CHEST REASON FOR EXAM: Male, 76 years old. Dyspnea TECHNIQUE: Single AP portable view of the chest. COMPARISON: Comparison is made with prior examination of 04/30/2020. FINDINGS: EKG electrodes are seen. Stable elevation of the right hemidiaphragm. Mild increased markings in the right midlung suggestive of possible early infiltrate. Follow-up is recommended. There is no demonstrated pleural abnormality. Normal size heart. Normal mediastinum and cari. Normal visualized pulmonary arteries. There is atherosclerotic tortuosity of the aortic arch and descending thoracic aorta. There are degenerative changes of the visualized thoracic spine. Normal visualized ribs, clavicles, and shoulders. There is no demonstrated abnormality of the visualized soft tissue structures of the upper abdomen. RAD/Chest 1 View (Portable) IMPRESSION: Stable elevation of the right hemidiaphragm. Mild increased markings in the right mid lung. Follow-up is recommended. Electronically Signed: Maxi Austin MD at 14:35 EDT , Service support ,
[2021-03-28 14:23] LABS: Anion Gap 8 (5-15); BNP,B-Type NATRIURETIC PEPTIDE 186.4 pg/mL (0-100); BUN 34 mg/dL (7-18); BUN/Creat Ratio 15.5 RATIO (10-20); Calcium,Total 9.1 mg/dL (8.5-10.1); Chloride 108 mmol/L (98-107); Creatinine, Serum 2.19 mg/dL (0.70-1.30); EST Glomerular Filtration Rate 31 mL/min (>60); Est Glom Filt Rate - Afr Amer 38 mL/min (>60); Glucose 86 mg/dL (74-106); Sodium Level 139 mmol/L (136-145); Troponin-I HS 14.8 pg/mL (3.0-78.5)
[2021-03-28 14:34] VITALS: O2SAT 97
--- NOTE | 2021-03-28 14:59 | CT_ITS ---
STUDY: CT CHEST WITHOUT CONTRAST REASON FOR EXAM: Male, 76 years old. dyspnea RADIATION DOSAGE (If Supplied By Facility): CTDIvol = ( 13.50 ) mGy, DLP = ( 523.04 ) mGycm TECHNIQUE: Transaxial imaging was performed without the administration of intravenous contrast material. Individualized dose optimization techniques were used for this CT. COMPARISON: 04/30/2020 FINDINGS: Mild emphysematous changes. Patchy groundglass densities most severe in the right upper lobe consistent with subsegmental atelectasis or pneumonitis. Elevated right hemidiaphragm. Normal heart and pericardium. There are calcifications of the coronary arteries. Normal mediastinum. Normal hilar regions. Normal unenhanced pulmonary arteries. There is atherosclerotic calcification of the aortic arch with tortuosity and elongation of the aortic arch and descending thoracic aorta. Normal osseous structures. There is no demonstrated abnormality of the visualized upper abdomen. CT/Chest without Contrast IMPRESSION: Mild emphysema with subsegmental atelectasis or pneumonitis particularly in the right upper lobe. Imaging features can be seen with Covid 19 pneumonia, though are nonspecific and can occur with a variety of infectious and noninfectious processes. Electronically Signed: Sony Nicholson MD at 16:03 EDT Tel , Service support ,
[2021-03-28 15:34] VITALS: BP 114/63; PULSE 63; RESP 20; O2SAT 97
== END 2021-03-28 16:50 | disposition home or self-care (01) ==
PROVIDERS: Emergency Provider Emergency Medicine; PCP Internal Medicine
DX: J44.0 Chronic obstructive pulmonary disease with (acute) lower respiratory infection (principal); J18.9 Pneumonia, unspecified organism; E78.5 Hyperlipidemia, unspecified; G47.33 Obstructive sleep apnea (adult) (pediatric); E11.22 Type 2 diabetes mellitus with diabetic chronic kidney disease; I48.0 Paroxysmal atrial fibrillation; I12.9 Hypertensive chronic kidney disease with stage 1 through stage 4 chronic kidney disease, or unspecified chronic kidney disease; N18.30 Chronic kidney disease, stage 3 unspecified; I25.119 Atherosclerotic heart disease of native coronary artery with unspecified angina pectoris; E11.51 Type 2 diabetes mellitus with diabetic peripheral angiopathy without gangrene; I71.2 Thoracic aortic aneurysm, without rupture; Z87.442 Personal history of urinary calculi; Z95.5 Presence of coronary angioplasty implant and graft; Z79.01 Long term (current) use of anticoagulants; Z79.4 Long term (current) use of insulin; Z79.82 Long term (current) use of aspirin; Z79.899 Other long term (current) drug therapy; Z87.891 Personal history of nicotine dependence
CPT/HCPCS: 71045; 71250; 80048; 83880; 84484; 85025; 93005; 94640; 99251; 99284; A4216; G0463

== ENCOUNTER → 2021-04-01 11:47 | Outpatient (CLI) | payer MEDICARE, OTHER, SELFPAY ==
[2021-04-01 06:38] VITALS: BMI 26.4
[2021-04-01 12:01] LABS: Absolute Lymphocyte Count 0.68 X10^3/uL (0.83-4.51); Absolute Neutrophil Count 11.5 X10^3/uL (2.0-7.7); Basophil# 0.02 X10^3/uL; Basophil% 0.2 % (0-1); Hematocrit 33.4 % (40-54); Hemoglobin 10.6 g/dL (13.0-16.5); Lymphocyte # 0.68 X10^3/ul (0.83-4.51); Lymphocyte % 5.2 % (19-41); Mean Corp Hgb Conc 31.7 g/dL (32-36); Mean Corpuscular Hgb 28.8 pg (27.0-32.0); Mean Corpuscular Volume 90.8 fL (80-94); Monocyte# 0.79 X10^3/uL; NRBC Flagged by Analyzer 0 % (0-5); Platelet Count 330 K/mm3 (150-450); RBC Distribution Width CV 14.1 % (11.6-14.6); RBC Distribution Width SD 46.5 fl (35.1-43.9); Red Blood Count 3.68 M/mm3 (4.6-6.2); White Blood Count 13.1 K/mm3 (4.4-11.0)
[2021-04-01 12:16] LABS: Rheumatoid Factor < 10.0 IU/mL (<15)
[2021-04-02 15:18] LABS: ANTINUCLEAR ANTIBODIES DIRECT Negative (Negative)
[2021-04-07 20:07] LABS: Aspirgillus flavus Negative (Neg:<1:1); Aspirgillus fumigatus Negative (Neg:<1:1); Aspirgillus niger Negative (Neg:<1:1); Cytoplasmic Ab (C-ANCA) <1:20 titer (Neg:<1:20)
[2021-04-07 21:52] LABS: CCP IgG Antibodies 9 units (0-19); Immunoglobulin E 89 IU/mL (6-495); Perinuclear Ab (P-ANCA) <1:20 titer (Neg:<1:20)
== END ==
PROVIDERS: PCP Internal Medicine; Referring Provider Internal Medicine Critical Care Medicine; Visit Provider Internal Medicine Critical Care Medicine
DX: J44.9 Chronic obstructive pulmonary disease, unspecified (principal); R06.02 Shortness of breath
CPT/HCPCS: 36415; 82785; 85025; 86038; 86200; 86225; 86235; 86256; 86431; 86606; 87426; C9803

== ENCOUNTER 2021-04-05 23:42 | Inpatient (IN) | payer MEDICARE, OTHER, SELFPAY ==
[2021-04-01 06:38] VITALS: BMI 26.4
[2021-04-05 23:43] VITALS: BP 166/111; PULSE 130; PULSE 143; RESP 28; TEMP 36.8; O2SAT 97; O2SAT 98; BMI 25.8
--- NOTE | 2021-04-05 23:45 | EKG12_ITS ---
Test Reason : CP Blood Pressure : / mmHG Vent. Rate : 147 BPM Atrial Rate : 141 BPM P-R Int : 000 ms QRS Dur : 074 ms QT Int : 292 ms P-R-T Axes : 000 026 189 degrees QTc Int : 456 ms Atrial fibrillation Marked ST abnormality, possible inferior subendocardial injury Marked ST abnormality, possible anterior subendocardial injury Abnormal ECG Confirmed by TERESA MERAZ, KENJI ([id number]), map editor GENARO ISRAEL ([id number]) on 04/08/2021 9:40:15 AM Referred By: LUIS ANGEL Confirmed By:KENJI MOORE MD
[2021-04-05] MEDS: Aspirin 81 MG TAB.CHEW 324 MG PO (23:54)
--- NOTE | 2021-04-05 23:58 | RAD_ITS ---
STUDY: X-RAY CHEST REASON FOR EXAM: Male, 76 years old. chest pain TECHNIQUE: Single AP portable view of the chest. COMPARISON: None. FINDINGS: Ill-defined subpleural groundglass opacities are seen more prominent in the right upper lobe, consistent with pneumonia (COVID-19 ). There is no demonstrated pleural abnormality. Normal size heart. Normal mediastinum and cari. Normal visualized pulmonary arteries. Normal visualized aortic arch and descending thoracic aorta. Normal visualized thoracic spine. Normal visualized ribs, clavicles, and shoulders. There is no demonstrated abnormality of the visualized soft tissue structures of the upper abdomen. RAD/Chest 1 View (Portable) IMPRESSION: Ill-defined subpleural groundglass opacities are seen more prominent in the right upper lobe, consistent with pneumonia (COVID-19 ). There has been no significant change since the previous study. Electronically Signed: Donald Ghosh MD at 0:32 EDT Tel , Service support ,
--- NOTE | 2021-04-05 23:59 | EDS_ITS ---
HPI History of Present Illness Chief Complaint: Chest Pain Narrative Narrative: 76-year-old male with history of CAD, cardiac stents, pneumonitis, hypertension,, COPD, atrial fibrillation on anticoagulation presenting with right-sided chest pain. He states that his heart is beating fast. Patient has history of atrial fibrillation and states is been a couple of months since he has been in atrial fibrillation. Patient states this started about 30 minutes prior to arrival. He states he was just sitting in his chair when it happened. He describes the pain as aching. [facility] Medical History Atherosclerotic heart disease [place] coronary artery w/angina pectoris BiPAP (biphasic positive airway pressure) dependence CKD (chronic kidney disease) stage 3, GFR 30-59 ml/min COPD (chronic obstructive pulmonary disease) Coronary artery disease CVA (cerebral vascular accident) Diabetes DM2 (diabetes mellitus, type 2) Emphysema lung Essential (primary) hypertension Former smoker Hyperlipemia Hypertension Kidney disease Kidney disease, chronic, stage II (GFR 60-89 ml/min) Kidney stone on right side Migraines Myocardial infarct Nicotine dependence, cigarettes, in remission RENEE (obstructive sleep apnea) PAD (peripheral artery disease) Paroxysmal atrial fibrillation Pulmonary nodule Thoracic aortic aneurysm TIA (transient ischemic attack) (~09/13/09) Vitamin B12 deficiency Home Medications amlodipine 2.5 mg PO DAILY 05/15/17 [History Last Taken 07/15/20] aspirin 81 mg PO DAILY@0800 05/15/17 [History Last Taken 07/15/20] famotidine 20 mg PO BID 05/15/17 [History Last Taken 07/15/20] insulin lispro 25 unit SUBCUT BREAKFAST 05/15/17 [History Last Taken 05/18/18] insulin lispro 25 unit SUBCUT DINNER 05/15/17 [History Last Taken 05/17/18] insulin lispro 25 unit SUBCUT LUNCH 05/15/17 [History Last Taken 05/17/18] propranolol 80 mg PO TID 05/15/17 [History Last Taken 07/15/20] acetaminophen 650 mg PO Q4H PRN PRN tab 05/17/17 [Rx Last Taken Unknown] albuterol sulfate 90 mcg/actuation aerosol inhaler 2 puff INHALATION Q6H PRN 09/22/18 [History Last Taken 04/05/21] rivaroxaban 15 mg PO DAILY 05/22/19 [History Last Taken 04/05/21] insulin glargine [Lantus U-100 Insulin] 18 unit SUBCUT QHS 03/28/21 [History Last Taken 04/04/21] losartan 25 mg PO DAILY 03/28/21 [History Last Taken Unknown] omeprazole 40 mg PO DAILY 03/28/21 [History Last Taken Unknown] ticagrelor [Brilinta] 90 mg PO BID 04/06/21 [History Last Taken 04/05/21] Allergy/AdvReac Type Severity Reaction Status Date / Time hydromorphone [From Dilaudid] Allergy Severe Unknown Verified 04/01/21 10:30 melon AdvReac Severe Unknown Verified 04/01/21 10:30 promethazine [From Phenergan] AdvReac Severe Unknown Verified 04/01/21 10:30 Opioids - Morphine Analogues AdvReac Vomiting Verified 04/01/21 10:30 Family History Father Cirrhosis Mother Cancer lung Surgical History History of cardiac catheterization (07/15/20) History of carpal tunnel release History of coronary artery stent placement History of heart artery stent History of inguinal hernia repair Social History household members: spouse and children housing: house Smoking Status: Former smoker Tobacco: How many years used: 30 how long ago did patient quit smokin, 2ppd second hand exposure: Yes substance use type: does not use ROS ROS ED Constitutional Constitutional ED: Denies chills or fever(s) Eyes Eyes: Denies blurry vision or change in vision ENT ENT ED: Denies rhinorrhea Cardiovascular Cardiovascular: Reports chest pain, palpitations and racing heartbeat Respiratory/Chest Respiratory/Chest: Denies cough, dyspnea or sputum Gastrointestinal Gastrointestinal: Denies abdominal pain, nausea or vomiting Genitourinary Genitourinary ED: Denies dysuria or hematuria Musculoskeletal Musculoskeletal: Denies arthralgias or myalgias Integumentary Denies abscess or rash Neurologic Neurologic: Denies headache(s) or paresthesias EXAM Physical Exam Const Vital Signs: 04/05/21 23:43 04/05/21 23:51 04/06/21 00:25 Temperature 98.3 F Temperature Source Oral Pulse Rate 130 H 96 Respiratory Rate 28 H 18 Blood Pressure 166/111 H 180/95 H Blood Pressure Mean 129 123 Pulse Ox 98 96 Oxygen Delivery Method Nasal Cannula Nasal Cannula Nasal Cannula Oxygen Flow Rate (L/min) 2 2 2 04/06/21 01:23 04/06/21 02:00 04/06/21 04:08 Temperature Temperature Source Pulse Rate 85 113 H 109 H Respiratory Rate 18 18 18 Blood Pressure 152/73 H 136/89 H 146/88 H Blood Pressure Mean 99 104 107 Pulse Ox 95 96 96 Oxygen Delivery Method Nasal Cannula Nasal Cannula Room Air Oxygen Flow Rate (L/min) 2 2 Positive well nourished General Appearance ED: NAD; Negative for pallor HEENT Reports normocephalic, head/scalp atraumatic and moist mucous membranes normocephalic and atraumatic Eyes PERRL and EOMs intact bilaterally Neck no lymphadenopathy and supple Chest Wall inspection of chest normal and palpation of chest normal Resp normal respiratory effort and clear to auscultation bilaterally Auscultation: Negative for rales, rhonchi or wheezes Cardio Rate: tachycardic Rhythm: abnormal rhythm irregularly irregular GI normal to inspection, nondistended, normoactive bowel sounds and non-distended Auscultation: normoactive bowel sounds Palpation: soft Narrative: Deferred Extremity normal to inspection General Extremety ED: Yes edema and tenderness General Extremity: edema Neuro oriented x3 and CN's II-XII intact bilaterally Sensorium / Orientation: alert Motor Exam: strength 5/5 throughout Psych mental status grossly normal Attitude: No agitated Skin no rashes or lesions noted and no wounds General Skin Exam: Negative for jaundice or pallor Heart Score History: Moderately Suspicious ECG: Significant ST-Depression Age: >/= 65 years Risk Factors: >/= 3 Risk Factors or History of CAD Score: 7 MDM MDM MDM Narrative Medical decision making narrative: Patient presenting with chest pain and on initial evaluation he appeared to be in atrial fibrillation with rapid ventricular response at a rate of 147 bpm. There does appear to be some depressions in lead V3, V4, V5, V6, lead II on my interpretation. Patient given Cardizem and his heart rate did respond. Second EKG was performed and on my interpretation appears to be atrial fibrillation with a ventricular rate of 94 bpm. There does appear to be some slight depression in the same leads as previously however there is no ST elevation. Patient had return of his chest pain and states he is allergic to morphine so I did give him nitroglycerin. CBC shows a white blood cell count 9.5, hemoglobin 1.9, hematocrit 37.2, platelets relate. Patient's electrolytes are normal. Creatinine is 1.86 which is better than his previous . Initial troponin was 56.1. Patient had delta troponin which was quite elevated at 621. Chest x-ray on my interpretation shows right upper lobe groundglass opacity versus infiltrate. This is not changed from his previous chest x-ray and he has no pneumonitis. The radiologist does agree. Discussed with Dr. Delgado who recommended admitting the patient. He did not recommend a heparin drip. Patient is already anticoagulated on Xarelto. Patient was given aspirin on arrival. Patient counseled on findings and is comfortable staying at [facility]. Patient is transported to the medical floor in stable condition. Impression: 1. NSTEMI 2. Atrial fibrillation with RVR Lab Data Attestation: I reviewed the patient's lab results. Labs: Laboratory Results - last 24 hr 04/05/21 04/05/21 04/06/21 23:59 23:59 00:33 WBC 9.5 RBC 4.18 L Hgb 11.9 L Hct 37.2 L MCV 89.0 MCH 28.5 MCHC 32.0 RDW Std Deviation 45.8 H RDW Coeff of Rosa 14.2 Plt Count 308 MPV 9.1 Immature Gran % (Auto) 1.700 H Neut % (Auto) 65.8 Lymph % (Auto) 15.8 L Ritchie % (Auto) 10.9 H Eos % (Auto) 5.3 H Baso % (Auto) 0.5 Absolute Neuts (auto) 6.3 Absolute Lymphs (auto) 1.50 Nucleated RBC % 0 Sodium Cancelled 136 Potassium Cancelled 4.2 Chloride Cancelled 106 Carbon Dioxide Cancelled 22.0 Anion Gap Cancelled 8 BUN Cancelled 39 H Creatinine Cancelled 1.86 H Estim Creat Clear Calc Cancelled 33.80 Est GFR (MDRD) Af Amer Cancelled 45 L Est GFR (MDRD) Non-Af Cancelled 38 L BUN/Creatinine Ratio Cancelled 21.0 H Glucose Cancelled 154 H Calcium Cancelled 8.6 Troponin I High Sens Cancelled 56.1 POC Glucose 04/06/21 04/06/21 02:19 02:27 WBC RBC Hgb Hct MCV MCH MCHC RDW Std Deviation RDW Coeff of Rosa Plt Count MPV Immature Gran % (Auto) Neut % (Auto) Lymph % (Auto) Ritchie % (Auto) Eos % (Auto) Baso % (Auto) Absolute Neuts (auto) Absolute Lymphs (auto) Nucleated RBC % Sodium Potassium Chloride Carbon Dioxide Anion Gap BUN Creatinine Estim Creat Clear Calc Est GFR (MDRD) Af Amer Est GFR (MDRD) Non-Af BUN/Creatinine Ratio Glucose Calcium Troponin I High Sens 621.0 H* POC Glucose 156 H Radiography Diagnostic Testing: Radiology Impression Chest X-Ray 04/05/21 23:58 IMPRESSION: Ill-defined subpleural groundglass opacities are seen more prominent in the right upper lobe, consistent with pneumonia (COVID-19 ). There has been no significant change since the previous study. Electronically Signed: Donald Ghosh MD at 0:32 EDT Tel , Service support , Discharge Plan Disposition Disposition: Acute Care Hospital [facility] Discharge Date/Time: 04/06/21 04:53
[2021-04-06] VITALS (46 sets, daily range): BP systolic 85–191; BP diastolic 50–130; PULSE 63–145; RESP 12–27; TEMP 36.1–36.7; O2SAT 92–99
[2021-04-06 00:04] LABS: Absolute Neutrophil Count 6.3 X10^3/uL (2.0-7.7); Basophil# 0.05 X10^3/uL; Basophil% 0.5 % (0-1); Eosinophils% 5.3 % (0-5); Hematocrit 37.2 % (40-54); Hemoglobin 11.9 g/dL (13.0-16.5); Lymphocyte % 15.8 % (19-41); Mean Corpuscular Hgb 28.5 pg (27.0-32.0); Mean Platelet Vol. 9.1 fl (6.2-12.0); Monocyte# 1.03 X10^3/uL; Monocyte% 10.9 % (0-10); NRBC Flagged by Analyzer 0 % (0-5); Neutrophil # 6.25 X10^3/uL (2.7-7.7); Neutrophil % 65.8 % (47-70); Platelet Count 308 K/mm3 (150-450); RBC Distribution Width CV 14.2 % (11.6-14.6); RBC Distribution Width SD 45.8 fl (35.1-43.9); Red Blood Count 4.18 M/mm3 (4.6-6.2); White Blood Count 9.5 K/mm3 (4.4-11.0)
[2021-04-06] MEDS: dilTIAZem 25 MG/5 ML Vial IV BOLUS (00:21)
--- NOTE | 2021-04-06 00:32 | EKG12_ITS ---
Test Reason : REPEAT Blood Pressure : / mmHG Vent. Rate : 094 BPM Atrial Rate : 234 BPM P-R Int : 000 ms QRS Dur : 076 ms QT Int : 338 ms P-R-T Axes : 000 004 098 degrees QTc Int : 422 ms Atrial fibrillation with premature ventricular or aberrantly conducted complexes Nonspecific ST abnormality Abnormal QRS-T angle, consider primary T wave abnormality Abnormal ECG Confirmed by TERESA MERAZ, KENJI ([id number]), editor publications GENARO ISRAEL ([id number]) on 04/08/2021 9:40:26 AM Referred By: LUIS ANGEL Confirmed By:KENJI MOORE MD
[2021-04-06 01:01] LABS: Anion Gap 8 (5-15); BUN 39 mg/dL (7-18); Calcium,Total 8.6 mg/dL (8.5-10.1); Chloride 106 mmol/L (98-107); Creatinine, Serum 1.86 mg/dL (0.70-1.30); EST Glomerular Filtration Rate 38 mL/min (>60); Est Glom Filt Rate - Afr Amer 45 mL/min (>60); Glucose 154 mg/dL (74-106); Potassium 4.2 mmol/L (3.5-5.1); Sodium Level 136 mmol/L (136-145); Troponin-I HS 56.1 pg/mL (3.0-78.5)
[2021-04-06 02:26] LABS: Bedside Glucose 156 mg/dL (70-110)
--- NOTE | 2021-04-06 04:06 | PCM.HP.STD ---
[facility] - General General Date of Admission: 04/06/21 HPI Narrative SAL SPENCER, is a 76 M with a significant history of hypertension; COPD; former smoker obstructive sleep apnea; and diabetes mellitus who presents to the emergency department with right-sided excruciating throbbing chest pain that started about 30 minutes prior to presentation and while sitting and watching TV. The pain radiates to his jaw and to his right arm. Mild exertion aggravate the pain. The pain improved with Cardizem IV given at the emergency department. Associated with his symptoms is heart racing. Further he had shortness of breath and mild diaphoresis. At the emergent department was found to be in A. fib with RVR. Reportedly last time he had A. fib was 2018 or 2019. At the emergency department initial troponin was negative but follow-up troponin was elevated. Emergency department doctor discussed the case with cardiology who will follow. In July 2020 he had a cardiac catheterization at the hospital that showed multivessel disease. PCI versus bypass was suggested and patient was transferred to outside hospital where he was found to have in-stent stenosis. He had and a stent placed in the occluded stent plus an additional stent. [facility]LY [facility], LATER [facility] Medical History Atherosclerotic heart disease [place] coronary artery w/angina pectoris CKD (chronic kidney disease) stage 3, GFR 30-59 ml/min COPD (chronic obstructive pulmonary disease) CVA (cerebral vascular accident) DM2 (diabetes mellitus, type 2) Emphysema lung Essential (primary) hypertension Hyperlipemia Kidney disease, chronic, stage II (GFR 60-89 ml/min) Kidney stone on right side Nicotine dependence, cigarettes, in remission RENEE (obstructive sleep apnea) PAD (peripheral artery disease) Paroxysmal atrial fibrillation Pulmonary nodule Thoracic aortic aneurysm Vitamin B12 deficiency Home Medications amlodipine 2.5 mg PO DAILY 05/15/17 [History Last Taken 07/15/20] aspirin 81 mg PO DAILY@0800 05/15/17 [History Last Taken 07/15/20] famotidine 20 mg PO BID 05/15/17 [History Last Taken 07/15/20] insulin lispro 5 unit SUBCUT BREAKFAST 05/15/17 [History Last Taken 05/18/18] insulin lispro 7 unit SUBCUT LUNCH 05/15/17 [History Last Taken 05/17/18] insulin lispro 16 unit SUBCUT DINNER 05/15/17 [History Last Taken 05/17/18] propranolol 80 mg PO TID 05/15/17 [History Last Taken 07/15/20] acetaminophen 650 mg PO Q4H PRN PRN tab 05/17/17 [Rx Last Taken Unknown] albuterol sulfate 90 mcg/actuation aerosol inhaler 2 puff INHALATION Q6H PRN 09/22/18 [History Last Taken Unknown] rivaroxaban 15 mg PO DAILY 05/22/19 [History Last Taken 07/14/20] insulin glargine [Lantus U-100 Insulin] 13 unit SUBCUT QHS 03/28/21 [History Last Taken Unknown] losartan 25 mg PO DAILY 03/28/21 [History Last Taken Unknown] omeprazole 40 mg PO DAILY 03/28/21 [History Last Taken Unknown] prednisone 60 mg PO DAILY #15 tablet 03/28/21 [Rx Last Taken Unknown] Allergy/AdvReac Type Severity Reaction Status Date / Time hydromorphone [From Dilaudid] Allergy Severe Unknown Verified 04/01/21 10:30 melon AdvReac Severe Unknown Verified 04/01/21 10:30 promethazine [From Phenergan] AdvReac Severe Unknown Verified 04/01/21 10:30 Opioids - Morphine Analogues AdvReac Vomiting Verified 04/01/21 10:30 Family History Father Cirrhosis Mother Cancer lung Surgical History History of cardiac catheterization (07/15/20) History of carpal tunnel release History of coronary artery stent placement History of heart artery stent History of inguinal hernia repair Social History Smoking Status: Former smoker Tobacco: How many years used: 30 how long ago did patient quit smokin, 2ppd second hand exposure: Yes ROS ROS Narrative Constitutional: Denies anorexia and change in weight Eyes: Denies blurry vision, change in eye color, change in vision, discharge from eye(s), double vision, erythema, eye pain, loss of vision or other HEENT: Denies abnormal hearing, dysphagia, ear pain, epistaxis, headache(s), hearing loss, nasal congestion, nasal discharge, post nasal drip, sinus pressure, sore throat or other Cardiovascular: Reports chest pain. Reports palpitations. Denies orthopnea and paroxysmal nocturnal dyspnea Respiratory/Chest: Reports shortness of breath. Denies wheezing Gastrointestinal: Denies abdominal pain, coffee ground emesis, constipation, diarrhea, dyspepsia, hematemesis, hematochezia, loose stools, melena, nausea, vomiting or other Genitourinary: Denies burning urination, difficulty urinating, dysuria, hematuria, nocturia, urinary frequency, urinary hesitancy, urinary incontinence, urinary urgency or other Musculoskeletal: Denies arthralgias, back pain, joint pain, joint stiffness, joint swelling, myalgias, neck pain or other Neurologic: Denies abnormal gait, abnormal speech, confusion, disequilibrium, dizziness, focal weakness, headache(s), numbness, paresthesias, seizure-like activity, seizures, syncope, tingling, tremor(s) or other Psychiatric: Denies anxiety, depression, homicidal ideation, suicidal ideation or other Endocrinology: Denies change in body appearance, cold intolerance, excessive sweating, heat intolerance, polydipsia, polyuria or other Hematologic/Lymphatic: Denies anemia, easy bleeding, easy bruising, lymphadenopathy or other Integumentary: Denies ulcer on buttocks. Allergic/Immunologic: Denies rhinitis, hives, eczema, asthma or other Vital Signs Vital Signs Vital Signs: 04/05/21 23:43 04/05/21 23:51 04/06/21 00:25 Temperature 98.3 F Temperature Source Oral Pulse Rate 130 H 96 Respiratory Rate 28 H 18 Blood Pressure 166/111 H 180/95 H Blood Pressure Mean 129 123 Pulse Ox 98 96 Oxygen Delivery Method Nasal Cannula Nasal Cannula Nasal Cannula Oxygen Flow Rate (L/min) 2 2 2 04/06/21 01:23 04/06/21 02:00 Temperature Temperature Source Pulse Rate 85 113 H Respiratory Rate 18 18 Blood Pressure 152/73 H 136/89 H Blood Pressure Mean 99 104 Pulse Ox 95 96 Oxygen Delivery Method Nasal Cannula Nasal Cannula Oxygen Flow Rate (L/min) 2 2 Weight Weight: 81.7 kg Body Mass Index (BMI) 25.8 Physical Exam Narrative Physical exam: General: Well-nourished, well-developed, no acute distress Head: Normocephalic, atraumatic, no tenderness Eyes: PERRLA, EOMI ENT, no trauma, moist mucous membranes, no rhinorrhea Neck: Nontender, full range of motion, no spinal tenderness, deformities, step-off CVS: Irregularly irregular rate and rhythm Respiratory no acute distress, clear to auscultation bilaterally, chest wall nontender, no wheezing Abdomen: Soft, nontender, nondistended, normal bowel sounds, no masses : Deferred Back: Nontender, no CVA tenderness, no midline spinal tenderness, deformities, step-offs Extremities: Nontender full range of motion, no trauma Skin: Normal color, no trauma, abrasions Neuro: Alert, oriented, cranial nerves II through XII grossly intact. Psychiatry: Normal mood. Normal affect. Not depressed. Not anxious. Results Lab / Micro Data Result Diagrams: 04/05/21 23:59 04/06/21 00:33 Labs: Laboratory Results - last 24 hr 04/05/21 23:59: WBC 9.5, RBC 4.18 L, Hgb 11.9 L, Hct 37.2 L, MCV 89.0, MCH 28.5, MCHC 32.0, RDW Std Deviation 45.8 H, RDW Coeff of Rosa 14.2, Plt Count 308, MPV 9.1, Immature Gran % (Auto) 1.700 H, Neut % (Auto) 65.8, Lymph % (Auto) 15.8 L, [place] % (Auto) 10.9 H, Eos % (Auto) 5.3 H, Baso % (Auto) 0.5, Absolute Neuts (auto) 6.3, Absolute Lymphs (auto) 1.50, Nucleated RBC % 0 04/05/21 23:59: Sodium Cancelled, Potassium Cancelled, Chloride Cancelled, Carbon Dioxide Cancelled, Anion Gap Cancelled, BUN Cancelled, Creatinine Cancelled, Estim Creat Clear Calc Cancelled, Est GFR (MDRD) Af Amer Cancelled, Est GFR (MDRD) Non-Af Cancelled, BUN/Creatinine Ratio Cancelled, Glucose Cancelled, Calcium Cancelled, Troponin I High Sens Cancelled 04/06/21 00:33: Sodium 136, Potassium 4.2, Chloride 106, Carbon Dioxide 22.0, Anion Gap 8, BUN 39 H, Creatinine 1.86 H, Estim Creat Clear Calc 33.80, Est GFR (MDRD) Af Amer 45 L, Est GFR (MDRD) Non-Af 38 L, BUN/Creatinine Ratio 21.0 H, Glucose 154 H, Calcium 8.6, Troponin I High Sens 56.1 04/06/21 02:19: POC Glucose 156 H 04/06/21 02:27: Troponin I High Sens 621.0 H* Radiology Impression Chest X-Ray 04/05/21 23:58 IMPRESSION: Ill-defined subpleural groundglass opacities are seen more prominent in the right upper lobe, consistent with pneumonia (COVID-19 ). There has been no significant change since the previous study. Electronically Signed: Donald Ghosh MD at 0:32 EDT Tel , Service support , Assessment & Plan Assessment/Plan (1) NSTEMI, initial episode of care: (2) Pneumonitis: PLAN: Atrial fibrillation with rapid ventricular response Place on PCU on telemetry Last echocardiogram on file was on 07/15/2020. Echocardiogram at that time showed an ejection fraction of 57% with stage I diastolic dysfunction. Pulmonary artery study pressure was 30 mmHg. On Xarelto at home. We will hold secondary to NSTEMI as wait for further cardiology recommendation. Review of ED labs showed potassium of 4.2, normal. Will check magnesium. Will check TSH. Check potassium and magnesium Chest x-ray: Ill-defined subpleural groundglass opacities are seen more prominent in the right upper lobe, consistent with pneumonia (COVID-19 ). Actual chest x-ray image was independently visualized groundglass opacity in the right upper lobes what were visualized. There is consistent with prior imaging. Of note patient has a diagnosis of pneumonitis and is following up with a pulmonary medicine with further work-up planned and some lab work pending. Received 25 mg of Cardizem bolus at emergency department. We will put patient on Cardizem drip as at the time of examination patient continued to have A. fib with rapid ventricular response. Cardiology consult. We will keep patient n.p.o. Non-ST elevation NM Initial high sensitive troponin was 56.1. Follow-up troponin was elevated at 621. Trend troponin. This could be due to NSTEMI or atrial fibrillation. EKG reviewed showed atrial fibrillation with rapid ventricular response, rate [address] depressions in lead V3, V4, V5, V6 aVF leads II and lead I. EKG image was independently interpreted. Received 324 mg aspirin at the emergency department. ASA 81 mg p.o. daily ordered SL NTG 0.4 mg prn as needed for chest pain ordered Of note patient has allergy to morphine. Morphine as needed for pain ordered Last lipid on file was in 2016. Triglyceride at that time was 197; cholesterol 87; LDL 22; VLDL 39; HDL of 25. Statin: We will start patient on Lipitor 40 mg nightly. Stat EKG as needed for chest pain Diabetes mellitus Patient with hyperglycemia on presentation Patient made n.p.o. Accu-Chek every 6 hours with correction scale insulin ordered. CKD stage IIIb Stable DVT prophylaxis Hold Xarelto as above. SCD ordered. Charges/Coding Visit Charges Inpatient E&M: 12643 Init Hosp L3
[2021-04-06] MEDS: Nitroglycerin SL (ED/IMG/CATH) 0.4 MG TABLET SL ×3 (04:31→04:40)
--- NOTE | 2021-04-06 04:59 | EKG12_ITS ---
Test Reason : CP ADMISSION Blood Pressure : / mmHG Vent. Rate : 127 BPM Atrial Rate : 150 BPM P-R Int : 000 ms QRS Dur : 082 ms QT Int : 308 ms P-R-T Axes : 000 003 116 degrees QTc Int : 447 ms Atrial fibrillation with premature ventricular or aberrantly conducted complexes Nonspecific ST and T wave abnormality Abnormal ECG When compared with ECG of 05-APR-2021 23:44, MANUAL COMPARISON REQUIRED, DATA IS UNCONFIRMED Confirmed by TERESA MERAZ, KENJI ([id number]), tape editor GENARO ISRAEL ([id number]) on 04/08/2021 9:49:17 AM Referred By: SHONDA Confirmed By:KENJI MOORE MD
[2021-04-06 06:51] LABS: Bedside Glucose 196 mg/dL (70-110)
[2021-04-06 07:32] LABS: Cholesterol 102 mg/dL (200); High Density Lipoprotein 33 mg/dL; Triglycerides 113 mg/dL; Very Low Density Lipoprotein 23 mg/dL (5-40)
[2021-04-06] MEDS: Nitroglycerin (INPATIENT USE) 0.4 MG TAB.SUBL SL (09:08)
--- NOTE | 2021-04-06 09:10 | NURSING ---
Dr Amaro here pt co chest throbbing given 1 sl ntg as pr order bp 126/73 hr 93, post ntg bp 99/61 hr86
[2021-04-06] MEDS: 0.9% Normal Saline 1,000 ML 75 ML IV ×2 (09:25→22:24)
[2021-04-06] MEDS: Aspirin E.C. 81 MG Tablet PO (09:31)
[2021-04-06] MEDS: TICAGRELOR 90 MG TABLET PO ×2 (09:31→23:18)
--- NOTE | 2021-04-06 09:40 | PCM.CONS.C ---
Assessment & Plan Assessment/Plan (1) NSTEMI, initial episode of care: PLAN: 76-year-old patient, with complex multivessel CAD, paroxysmal atrial fibrillation, CKD and multiple other medical comorbidities including RENEE and chronic obstructive pulmonary disease. This presentation is with symptoms of chest pain while watching TV came to the ER, evaluation with EKG revealed, he had ER at [facility] revealed A. fib with RVR with diffuse ST depression secondary to myocardial ischemia and non-ST elevation [place], more notably noted in the inferolateral and anterior leads. 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 This morning he still continues to have retrosternal chest pain Plan and recommendation; 1. We will transfer this patient to the intensive care unit due to continue retrosternal chest pain on current medication We will start on IV nitroglycerin and monitor the patient in the intensive care unit. 2. We will hold his Xarelto and add heparin. A. fib is controlled on current Cardizem. 3. We will evaluate by echocardiogram and continue to have a series of high sensitive troponin which is elevated 4. Nephrology consultation due to risk of contrast-induced nephropathy in a patient who had underlying CKD. 5. Echocardiogram to reevaluate his LV function. 6. 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 Morocho will resume the care and discuss further plan, we will keep the patient n.p.o. from midnight. (2) SOB (shortness of breath): (3) Atherosclerotic heart disease [place] coronary artery w/angina pectoris: (4) Essential (primary) hypertension: (5) CVA (cerebral vascular accident): (6) Hyperlipemia: (7) PAD (peripheral artery disease): (8) CKD (chronic kidney disease) stage 3, GFR 30-59 ml/min: (9) RENEE (obstructive sleep apnea): (10) COPD (chronic obstructive pulmonary disease): (11) Nicotine dependence, cigarettes, in remission: (12) Paroxysmal atrial fibrillation: HPI Consult Data Date of Consult: 04/06/21 HPI Narrative Reason for Consultation: High risk patient with multivessel CAD,NSTEMI,PAfib HPI Narrative: SAL SPENCER, is a 76 M who [facility] Medical History (Updated 04/06/21 @ 09:[address] Nguyễn Delgado MD) Atherosclerotic heart disease [place] coronary artery w/angina pectoris BiPAP (biphasic positive airway pressure) dependence CKD (chronic kidney disease) stage 3, GFR 30-59 ml/min COPD (chronic obstructive pulmonary disease) Coronary artery disease CVA (cerebral vascular accident) Diabetes DM2 (diabetes mellitus, type 2) Emphysema lung Essential (primary) hypertension Former smoker Hyperlipemia Hypertension Kidney disease Kidney disease, chronic, stage II (GFR 60-89 ml/min) Kidney stone on right side Migraines Myocardial infarct Nicotine dependence, cigarettes, in remission RENEE (obstructive sleep apnea) PAD (peripheral artery disease) Paroxysmal atrial fibrillation Pulmonary nodule Thoracic aortic aneurysm TIA (transient ischemic attack) (~09/13/09) Vitamin B12 deficiency Home Medications amlodipine 2.5 mg PO DAILY 05/15/17 [History Last Taken 07/15/20] aspirin 81 mg PO DAILY@0800 05/15/17 [History Last Taken 07/15/20] famotidine 20 mg PO BID 05/15/17 [History Last Taken 07/15/20] insulin lispro 25 unit SUBCUT BREAKFAST 05/15/17 [History Last Taken 05/18/18] insulin lispro 25 unit SUBCUT DINNER 05/15/17 [History Last Taken 05/17/18] insulin lispro 25 unit SUBCUT LUNCH 05/15/17 [History Last Taken 05/17/18] propranolol 80 mg PO TID 05/15/17 [History Last Taken 07/15/20] acetaminophen 650 mg PO Q4H PRN PRN tab 05/17/17 [Rx Last Taken Unknown] albuterol sulfate 90 mcg/actuation aerosol inhaler 2 puff INHALATION Q6H PRN 09/22/18 [History Last Taken 04/05/21] rivaroxaban 15 mg PO DAILY 05/22/19 [History Last Taken 04/05/21] insulin glargine [Lantus U-100 Insulin] 18 unit SUBCUT QHS 03/28/21 [History Last Taken 04/04/21] losartan 25 mg PO DAILY 03/28/21 [History Last Taken Unknown] omeprazole 40 mg PO DAILY 03/28/21 [History Last Taken Unknown] ticagrelor [Brilinta] 90 mg PO BID 04/06/21 [History Last Taken 04/05/21] Allergy/AdvReac Type Severity Reaction Status Date / Time hydromorphone [From Dilaudid] Allergy Severe Unknown Verified 04/01/21 10:30 melon AdvReac Severe Unknown Verified 04/01/21 10:30 promethazine [From Phenergan] AdvReac Severe Unknown Verified 04/01/21 10:30 Opioids - Morphine Analogues AdvReac Vomiting Verified 04/01/21 10:30 Family History Father Cirrhosis Mother Cancer lung Surgical History History of cardiac catheterization (07/15/20) History of carpal tunnel release History of coronary artery stent placement History of heart artery stent History of inguinal hernia repair Social History household members: spouse and children housing: house Smoking Status: Former smoker Tobacco: How many years used: 30 how long ago did patient quit smokin, 2ppd second hand exposure: Yes substance use type: does not use Physical Exam Narrative Evaluated today at bedside along with the nursing staff He still have retrosternal chest pain Patient alert orientated x3 Cardiovascular examination; Underlying cardiac rhythm is A. fib with controlled ventricular rate on the current treatment with Cardizem IV S1-S2 is irregular there is no murmur no systolic or diastolic murmur Chest examination; Clear to auscultation bilaterally Examination of the abdomen; Soft no palpable masses noted Examination lower extremity; No lower extremity edema noted. Central nervous system exam no focal neurological signs noted Objective Data Vital Signs: Vital Signs Temp Pulse Resp BP Pulse Ox 98.0 F 94 22 H 129/61 H 98 04/06/21 05:10 04/06/21 09:08 04/06/21 07:00 04/06/21 09:08 04/06/21 07:00 Oxygen Flow Rate (L/min) 2 Oxygen Delivery Method Room Air Weight: 180 lb 1.883 oz Body Mass Index (BMI) 25.8 Intake & Output: Intake and Output for Last 24 Hours 04/04/21 04/05/21 04/06/21 23:59 23:59 23:59 Intake Total 19.17 / 19.17 Output Total 200 / 200 Balance -180.83 / -180.83 Lab / Micro Data Result Diagrams: 04/05/21 23:59 04/06/21 00:33 Labs: Laboratory Results - last 24 hr 04/05/21 23:59: WBC 9.5, RBC 4.18 L, Hgb 11.9 L, Hct 37.2 L, MCV 89.0, MCH 28.5, MCHC 32.0, RDW Std Deviation 45.8 H, RDW Coeff of Rosa 14.2, Plt Count 308, MPV 9.1, Immature Gran % (Auto) 1.700 H, Neut % (Auto) 65.8, Lymph % (Auto) 15.8 L, [place] % (Auto) 10.9 H, Eos % (Auto) 5.3 H, Baso % (Auto) 0.5, Absolute Neuts (auto) 6.3, Absolute Lymphs (auto) 1.50, Nucleated RBC % 0 04/05/21 23:59: Sodium Cancelled, Potassium Cancelled, Chloride Cancelled, Carbon Dioxide Cancelled, Anion Gap Cancelled, BUN Cancelled, Creatinine Cancelled, Estim Creat Clear Calc Cancelled, Est GFR (MDRD) Af Amer Cancelled, Est GFR (MDRD) Non-Af Cancelled, BUN/Creatinine Ratio Cancelled, Glucose Cancelled, Calcium Cancelled, Troponin I High Sens Cancelled 04/06/21 00:33: Sodium 136, Potassium 4.2, Chloride 106, Carbon Dioxide 22.0, Anion Gap 8, BUN 39 H, Creatinine 1.86 H, Estim Creat Clear Calc 33.80, Est GFR (MDRD) Af Amer 45 L, Est GFR (MDRD) Non-Af 38 L, BUN/Creatinine Ratio 21.0 H, Glucose 154 H, Calcium 8.6, Troponin I High Sens 56.1 04/06/21 02:19: POC Glucose 156 H 04/06/21 02:27: Troponin I High Sens 621.0 H* 04/06/21 06:07: Triglycerides 113, Cholesterol 102, LDL Cholesterol 46, VLDL Cholesterol 23, HDL Cholesterol 33 L, TSH 1.00 04/06/21 06:07: Troponin I High Sens 1075.0 H* 04/06/21 06:43: POC Glucose 196 H Cardiology Labs/Tests 04/05/21 23:59: WBC 9.5, RBC 4.18 L, Hgb 11.9 L, Hct 37.2 L, MCV 89.0, MCH 28.5, MCHC 32.0, Plt Count 308, MPV 9.1, Immature Gran % (Auto) 1.700 H, Neut % (Auto) 65.8, Lymph % (Auto) 15.8 L, [place] % (Auto) 10.9 H, Eos % (Auto) 5.3 H, Baso % (Auto) 0.5, Absolute Neuts (auto) 6.3, Nucleated RBC % 0 04/05/21 23:59: Sodium Cancelled, Potassium Cancelled, Chloride Cancelled, Carbon Dioxide Cancelled, Anion Gap Cancelled, BUN Cancelled, Creatinine Cancelled, Est GFR (MDRD) Af Amer Cancelled, Est GFR (MDRD) Non-Af Cancelled, BUN/Creatinine Ratio Cancelled, Glucose Cancelled, Calcium Cancelled 04/06/21 00:33: Sodium 136, Potassium 4.2, Chloride 106, Carbon Dioxide 22.0, Anion Gap 8, BUN 39 H, Creatinine 1.86 H, Est GFR (MDRD) Af Amer 45 L, Est GFR (MDRD) Non-Af 38 L, BUN/Creatinine Ratio 21.0 H, Glucose 154 H, Calcium 8.6 04/06/21 06:07: Triglycerides 113, Cholesterol 102, LDL Cholesterol 46, VLDL Cholesterol 23, HDL Cholesterol 33 L Rhythm: Underlying atrial fibrillation controlled ventricular rate EKG: A. fib with RVR and ST depression noted diffuse, marked ST abnormality in the inferior, lateral and anterior leads : Radiography Diagnostic Testing: Radiology Impression Chest X-Ray 04/05/21 23:58 IMPRESSION: Ill-defined subpleural groundglass opacities are seen more prominent in the right upper lobe, consistent with pneumonia (COVID-19 ). There has been no significant change since the previous study. Electronically Signed: Donald Ghosh MD at 0:32 EDT Tel , Service support ,
--- NOTE | 2021-04-06 10:11 | NURSING ---
Dr sheriff here order pt to transfer to icu, called [facility] informed here pt to transfer to [address], report called to icu transferred per bed with belongings
--- NOTE | 2021-04-06 10:54 | PCM.PN.BLA ---
Progress Note Patient was seen and examined. He complains of ongoing chest pain 5 out of 10. EKG shows A. fib with RVR with ST segment depression in the anterolateral leads He received sublingual nitro and dropped his blood pressure to the 90s. He remains on Cardizem drip. Discussed with Dr. Delgado; patient will be put on nitro drip for ongoing chest pain, Xarelto to be held; start on heparin drip Patient will need cardiac cath in the morning
[2021-04-06] MEDS: Nitroglycerin Infusion 250 ML 3 MG CONT INF (12:45)
[2021-04-06] MEDS: HEPARIN/D5w 25,000 UNITS 25,000 UNITS/250 ML IV.SOLN. 12 UNITS IV (12:51)
[2021-04-06] MEDS: Insulin Lispro 100 UNIT/ML INSULN.PEN SC ×3 (12:55→23:22)
[2021-04-06 13:03] LABS: Partial Thromboplast Time 59.9 Seconds (24.1-36.2)
[2021-04-06 13:06] LABS: Bedside Glucose 224 mg/dL (70-110)
[2021-04-06] MEDS: Acetaminophen 325 MG Tablet 650 MG PO ×2 (13:46→20:28)
[2021-04-06 13:52] LABS: Magnesium 2.2 mg/dL (1.6-2.6)
--- NOTE | 2021-04-06 16:02 | EKG12_ITS ---
Test Reason : RHYTHM CHANGE Blood Pressure : / mmHG Vent. Rate : 062 BPM Atrial Rate : 062 BPM P-R Int : 154 ms QRS Dur : 072 ms QT Int : 404 ms P-R-T Axes : 038 -14 034 degrees QTc Int : 410 ms Normal sinus rhythm Nonspecific ST abnormality Abnormal ECG No previous ECGs available Confirmed by TERESA MERAZ, KENJI ([id number]), photography editor GENARO ISRAEL ([id number]) on 04/08/2021 9:54:51 AM Referred By: BEN Confirmed By:KENJI MOORE MD
--- NOTE | 2021-04-06 16:39 | PCM.CONS.R ---
Assessment & Plan Assessment/Plan (1) CKD (chronic kidney disease) stage 4, GFR 15-29 ml/min: PLAN: HE HAS kNOWN HISTORY OF ckd STAGE iiib/4. bASELINE CREATININE IS AROUND 1.9. cURRENT CREATININE IS CLOSE TO BASELINE. hE WAS ABLE TO HAVE AN ANGIOGRAM IN august WITH SIMILAR CREATININE. eXPLAINED THE RISK OF CONTRAST NEPHROPATHY. aGREEABLE AND IS WILLING TO PROCEED. cURRENTLY ON iv FLUIDS. hE HAS BEEN ON ANTIPLATELETS AND ANTICOAGULATION SINCE august. cOMPLAINS OF NOSEBLEEDS. cHEST X-RAY HAS INFILTRATES. nOT SURE IF THE INFILTRATES IN THE LUNGS OR BLEEDING FROM ANTICOAGULATION. aLSO HAS MICROSCOPIC HEMATURIA. sINCE HIS CREATININE IS STABLE, i DON'T THINK SHE HAS ACTIVE GLOMERULE NEPHRITIS. wE WILL FOLLOW UP ON THE SEROLOGIES. hE WAS TOLD THAT HE HAD RENAL ARTERY STENOSIS IN THE PAST. wAS SEEN BY VASCULAR SURGERY. bLOOD PRESSURE IS ACCEPTABLE. nO INDICATION FOR RENAL A STENTING NOW HPI Consult Data Date of Consult: 04/06/21 HPI Narrative HPI Narrative: SAL SPENCER, is a 76 M who presents To the hospital with complaints of chest pain, shortness of breath. Nephrology consultation in view of his kidney disease. He has known history of CKD stage IIIB/CKD stage IV. 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 Baseline creatinine has been around 1.8-1.9 for several months now. Recently she was found to have infiltrates on the lung and saw Dr. Morales. CT chest shows extensive infiltrates. Serologies were ordered last week and are pending. History of non-ST elevation RI and had cardiac stents placed in August 2020.Currently on heparin drip, Cardizem drip. Urine output is present. [facility] Medical History (Updated 04/06/21 @ 16:[address] Dominick Yancey MD) Atherosclerotic heart disease [place] coronary artery w/angina pectoris BiPAP (biphasic positive airway pressure) dependence CKD (chronic kidney disease) stage 3, GFR 30-59 ml/min COPD (chronic obstructive pulmonary disease) Coronary artery disease CVA (cerebral vascular accident) Diabetes DM2 (diabetes mellitus, type 2) Emphysema lung Essential (primary) hypertension Former smoker Hyperlipemia Hypertension Kidney disease Kidney disease, chronic, stage II (GFR 60-89 ml/min) Kidney stone on right side Migraines Myocardial infarct Nicotine dependence, cigarettes, in remission RENEE (obstructive sleep apnea) PAD (peripheral artery disease) Paroxysmal atrial fibrillation Pulmonary nodule Thoracic aortic aneurysm TIA (transient ischemic attack) (~09/13/09) Vitamin B12 deficiency Home Medications amlodipine 2.5 mg PO DAILY 05/15/17 [History Last Taken 07/15/20] aspirin 81 mg PO DAILY@0800 05/15/17 [History Last Taken 07/15/20] famotidine 20 mg PO BID 05/15/17 [History Last Taken 07/15/20] insulin lispro 25 unit SUBCUT BREAKFAST 05/15/17 [History Last Taken 05/18/18] insulin lispro 25 unit SUBCUT DINNER 05/15/17 [History Last Taken 05/17/18] insulin lispro 25 unit SUBCUT LUNCH 05/15/17 [History Last Taken 05/17/18] propranolol 80 mg PO TID 05/15/17 [History Last Taken 07/15/20] acetaminophen 650 mg PO Q4H PRN PRN tab 05/17/17 [Rx Last Taken Unknown] albuterol sulfate 90 mcg/actuation aerosol inhaler 2 puff INHALATION Q6H PRN 09/22/18 [History Last Taken 04/05/21] rivaroxaban 15 mg PO DAILY 05/22/19 [History Last Taken 04/05/21] insulin glargine [Lantus U-100 Insulin] 18 unit SUBCUT QHS 03/28/21 [History Last Taken 04/04/21] losartan 25 mg PO DAILY 03/28/21 [History Last Taken Unknown] omeprazole 40 mg PO DAILY 03/28/21 [History Last Taken Unknown] ticagrelor [Brilinta] 90 mg PO BID 04/06/21 [History Last Taken 04/05/21] Allergy/AdvReac Type Severity Reaction Status Date / Time hydromorphone [From Dilaudid] Allergy Severe Unknown Verified 04/01/21 10:30 melon AdvReac Severe Unknown Verified 04/01/21 10:30 promethazine [From Phenergan] AdvReac Severe Unknown Verified 04/01/21 10:30 Opioids - Morphine Analogues AdvReac Vomiting Verified 04/01/21 10:30 Family History Father Cirrhosis Mother Cancer lung Surgical History History of cardiac catheterization (07/15/20) History of carpal tunnel release History of coronary artery stent placement History of heart artery stent History of inguinal hernia repair Social History household members: spouse and children housing: house Smoking Status: Former smoker Tobacco: How many years used: 30 how long ago did patient quit smokin, 2ppd second hand exposure: Yes substance use type: does not use ROS ROS Narrative 10 point ROS negative except ABOVE Physical Exam Narrative Alert awake oriented x 3 no obvious distress no pallor no icterus no JVD s1s2 no murmurs lungs clear abdomen soft no organomegaly no edema no cyanosis Lab / Micro Data Result Diagrams: 04/05/21 23:59 04/06/21 00:33 Labs: Laboratory Results - last 24 hr 04/05/21 23:59: WBC 9.5, RBC 4.18 L, Hgb 11.9 L, Hct 37.2 L, MCV 89.0, MCH 28.5, MCHC 32.0, RDW Std Deviation 45.8 H, RDW Coeff of Rosa 14.2, Plt Count 308, MPV 9.1, Immature Gran % (Auto) 1.700 H, Neut % (Auto) 65.8, Lymph % (Auto) 15.8 L, [place] % (Auto) 10.9 H, Eos % (Auto) 5.3 H, Baso % (Auto) 0.5, Absolute Neuts (auto) 6.3, Absolute Lymphs (auto) 1.50, Nucleated RBC % 0 04/05/21 23:59: Sodium Cancelled, Potassium Cancelled, Chloride Cancelled, Carbon Dioxide Cancelled, Anion Gap Cancelled, BUN Cancelled, Creatinine Cancelled, Estim Creat Clear Calc Cancelled, Est GFR (MDRD) Af Amer Cancelled, Est GFR (MDRD) Non-Af Cancelled, BUN/Creatinine Ratio Cancelled, Glucose Cancelled, Calcium Cancelled, Troponin I High Sens Cancelled 04/06/21 00:33: Sodium 136, Potassium 4.2, Chloride 106, Carbon Dioxide 22.0, Anion Gap 8, BUN 39 H, Creatinine 1.86 H, Estim Creat Clear Calc 33.80, Est GFR (MDRD) Af Amer 45 L, Est GFR (MDRD) Non-Af 38 L, BUN/Creatinine Ratio 21.0 H, Glucose 154 H, Calcium 8.6, Troponin I High Sens 56.1 04/06/21 02:19: POC Glucose 156 H 04/06/21 02:27: Troponin I High Sens 621.0 H* 04/06/21 06:07: Triglycerides 113, Cholesterol 102, LDL Cholesterol 46, VLDL Cholesterol 23, HDL Cholesterol 33 L, TSH 1.00 04/06/21 06:07: Troponin I High Sens 1075.0 H* 04/06/21 06:07: Magnesium 2.2 04/06/21 06:43: POC Glucose 196 H 04/06/21 12:30: POC Glucose 224 H 04/06/21 12:40: APTT 59.9 H Radiology Impression Chest X-Ray 04/05/21 23:58 IMPRESSION: Ill-defined subpleural groundglass opacities are seen more prominent in the right upper lobe, consistent with pneumonia (COVID-19 ). There has been no significant change since the previous study. Electronically Signed: Donald Ghosh MD at 0:32 EDT Tel , Service support ,
[2021-04-06 16:46] LABS: Bedside Glucose 375 mg/dL (70-110)
[2021-04-06 21:33] LABS: Partial Thromboplast Time 242.5 Seconds (24.1-36.2)
[2021-04-06] MEDS: dilTIAZem 30 MG Tablet PO (23:18)
[2021-04-06] MEDS: Atorvastatin Calcium 40 MG Tablet PO (23:18)
[2021-04-06] MEDS: Propranolol 40 MG Tablet 80 MG PO (23:18)
[2021-04-06] MEDS: Famotidine 20 MG Tablet PO (23:18)
[2021-04-06 23:31] LABS: Bedside Glucose 304 mg/dL (70-110)
[2021-04-07] VITALS (27 sets, daily range): BP systolic 106–174; BP diastolic 47–110; PULSE 58–98; RESP 13–26; TEMP 36.4–36.8; O2SAT 94–100
--- NOTE | 2021-04-07 04:35 | EKG12_ITS ---
Test Reason : AM EKG Blood Pressure : / mmHG Vent. Rate : 069 BPM Atrial Rate : 069 BPM P-R Int : 162 ms QRS Dur : 076 ms QT Int : 410 ms P-R-T Axes : 043 002 088 degrees QTc Int : 439 ms Sinus rhythm with Premature atrial complexes Nonspecific ST and T wave abnormality Abnormal ECG When compared with ECG of 06-APR-2021 05:10, MANUAL COMPARISON REQUIRED, DATA IS UNCONFIRMED Confirmed by TERESA MERAZ, KENJI ([id number]), newspaper editor GENARO ISRAEL ([id number]) on 04/08/2021 9:51:01 AM Referred By: BEN Confirmed By:KENJI MOORE MD
[2021-04-07] MEDS: dilTIAZem 30 MG Tablet PO (05:12)
[2021-04-07] MEDS: Propranolol 40 MG Tablet 80 MG PO ×3 (05:12→22:19)
[2021-04-07 05:26] LABS: Bedside Glucose 148 mg/dL (70-110)
[2021-04-07 05:27] LABS: Absolute Lymphocyte Count 0.86 X10^3/uL (0.83-4.51); Absolute Neutrophil Count 4.1 X10^3/uL (2.0-7.7); Basophil# 0.03 X10^3/uL; Basophil% 0.5 % (0-1); Eosinophil# 0.31 X10^3/uL; Eosinophils% 5.1 % (0-5); Hematocrit 31.7 % (40-54); Lymphocyte # 0.86 X10^3/ul (0.83-4.51); Lymphocyte % 14.2 % (19-41); Mean Corp Hgb Conc 31.5 g/dL (32-36); Mean Corpuscular Hgb 27.9 pg (27.0-32.0); Mean Corpuscular Volume 88.5 fL (80-94); Monocyte# 0.66 X10^3/uL; Monocyte% 10.9 % (0-10); NRBC Flagged by Analyzer 0 % (0-5); Neutrophil # 4.14 X10^3/uL (2.7-7.7); Neutrophil % 68.1 % (47-70); Platelet Count 242 K/mm3 (150-450); RBC Distribution Width CV 14.1 % (11.6-14.6); RBC Distribution Width SD 45.6 fl (35.1-43.9); Red Blood Count 3.58 M/mm3 (4.6-6.2); White Blood Count 6.1 K/mm3 (4.4-11.0)
[2021-04-07 05:43] LABS: Anion Gap 6 (5-15); BUN 40 mg/dL (7-18); BUN/Creat Ratio 23.4 RATIO (10-20); Calcium,Total 8.4 mg/dL (8.5-10.1); Chloride 105 mmol/L (98-107); Creatinine, Serum 1.71 mg/dL (0.70-1.30); EST Glomerular Filtration Rate 41 mL/min (>60); Est Glom Filt Rate - Afr Amer 50 mL/min (>60); Estimated Creatinine Clearance 36.76 ml/min; Glucose 165 mg/dL (74-106); Potassium 4.1 mmol/L (3.5-5.1); Sodium Level 136 mmol/L (136-145)
[2021-04-07 05:50] LABS: Partial Thromboplast Time 149.2 Seconds (24.1-36.2)
--- NOTE | 2021-04-07 07:32 | PN.HOSP_ITS ---
Subjective Subjective Patient is a 76-year-old gentleman with multiple comorbidities including coronary artery disease with previous stent placement paroxysmal A. fib CKD admitted with chest pain. Patient was found to be in A. fib with RVR as well as with elevated troponin. Patient was started on Cardizem and admitted to the intensive care unit with consultati Objective Data Objective Data Vital Signs: Vital Signs Temp Pulse Resp BP Pulse Ox 97.6 F L 67 19 H 130/56 H 95 04/07/21 00:00 04/07/21 07:00 04/07/21 07:00 04/07/21 07:00 04/07/21 07:00 Oxygen Flow Rate (L/min) 2 Oxygen Delivery Method Room Air Weight: 80.104 kg Body Mass Index (BMI) 25.8 Intake & Output: Intake and Output for Last 24 Hours 04/05/21 04/06/21 04/07/21 23:59 23:59 23:59 Intake Total 1436.22 / 1449.32 77.6 / 77.6 Output Total 575 / 750 1250 / 1250 Balance 861.22 / 699.32 -1172.4 / -1172.4 Lab / Micro Data Result Diagrams: 04/07/21 05:15 04/07/21 05:15 Labs: Laboratory Results - last 24 hr 04/06/21 06:07: Triglycerides 113, Cholesterol 102, LDL Cholesterol 46, VLDL Cholesterol 23, HDL Cholesterol 33 L, TSH 1.00 04/06/21 06:07: Magnesium 2.2 04/06/21 12:30: POC Glucose 224 H 04/06/21 12:40: APTT 59.9 H 04/06/21 16:37: POC Glucose 375 H 04/06/21 18:10: APTT Cancelled 04/06/21 20:13: APTT 242.5 H* 04/06/21 23:22: POC Glucose 304 H 04/07/21 05:15: WBC 6.1, RBC 3.58 L, Hgb 10.0 L, Hct 31.7 L, MCV 88.5, MCH 27.9, MCHC 31.5 L, RDW Std Deviation 45.6 H, RDW Coeff of Rosa 14.1, Plt Count 242, MPV 9.0, Immature Gran % (Auto) 1.200 H, Neut % (Auto) 68.1, Lymph % (Auto) 14.2 L, [place] % (Auto) 10.9 H, Eos % (Auto) 5.1 H, Baso % (Auto) 0.5, Absolute Neuts (auto) 4.1, Absolute Lymphs (auto) 0.86, Nucleated RBC % 0 04/07/21 05:15: Sodium 136, Potassium 4.1, Chloride 105, Carbon Dioxide 25.0, Anion Gap 6, BUN 40 H, Creatinine 1.71 H, Estim Creat Clear Calc 36.76, Est GFR (MDRD) Af Amer 50 L, Est GFR (MDRD) Non-Af 41 L, BUN/Creatinine Ratio 23.4 H, Glucose 165 H, Calcium 8.4 L 04/07/21 05:15: APTT 149.2 H* 04/07/21 05:18: POC Glucose 148 H Physical Exam Narrative GENERAL: cooperative HEENT: Atraumatic; EYES; Anicteric, Normal Conjunctiva NECK; supple, normal thyroid, RESPIRATORY: Diminished to auscultation CARDIOVASCULAR: Regular S1 S2, GI: soft, normoactive bowel sounds, : No Renal angle tenderness; EXTREMITIES: No edema, no clubbing, MUSCULOSKELETAL: no muscle waisting NEURO: Awake; no lateralizing signs. SKIN: No Rash PSYCH; Flat affect Assessment & Plan Assessment/Plan (1) NSTEMI, initial episode of care: (2) Pneumonitis: PLAN: Patient is a 76-year-old gentleman with multiple comorbidities including coronary artery disease with previous stent placement paroxysmal A. fib CKD admitted with chest pain. Patient was found to be in A. fib with RVR as well as with elevated troponin. Patient was started on Cardizem and admitted to the intensive care unit with consultation placed to cardiology 1. Atrial fibrillation with rapid ventricular response -Admitted to the intensive care unit managed with Cardizem as well as heparin. Patient was previously on Xarelto held. Consult placed to cardiology plan is for patient to undergo left heart catheterization with possible intervention if warranted on 04/07/2021 2. Acute Non-ST elevation [place] -Patient managed per guideline. Consultation placed to cardiology plans for patient to undergo left heart catheterization 3. Coronary artery disease ?With previous PCI 4. Hypertension - Blood pressure controlled, home medications continued with dose adjustment as needed 5. Diabetes mellitus type II -patient's oral hypoglycemics held. Placed on long acting insulin, Accu-Cheks a.c. and at bedtime and covered with sliding scale insulin 6. Chronic kidney disease ?Secondary to diabetic nephropathy consult placed to nephrology in view of concerns for possible contrast-induced nephropathy 7. Peripheral arterial disease Vascular history 8. COPD ?Currently not in exacerbation 9. Peripheral arterial disease 10. Dyslipidemia -Patient is on statin therapy, continued at home dose Charges/Coding Visit Charges Inpatient E&M: 13470 Subs Hosp L3
[2021-04-07] MEDS: Famotidine 20 MG Tablet PO ×2 (08:07→22:19)
[2021-04-07] MEDS: TICAGRELOR 90 MG TABLET PO ×2 (08:07→22:19)
[2021-04-07] MEDS: Aspirin E.C. 81 MG Tablet PO (08:07)
[2021-04-07] MEDS: Losartan Potassium 25 MG Tablet PO (08:07)
--- NOTE | 2021-04-07 09:23 | CM.UR ---
RN CM NOTE: Pt has MCR and can transfer to tertiary facility of choice, if transfer is recommended. Jeremy PEÑAN RN CM
--- NOTE | 2021-04-07 09:45 | CASEMGMT ---
Addendum entered by Best Srivastava 04/07/21 16:07: Pt screened with [facility] Palliative Care Screening Tool for strata 3, pt did not meet criteria. Original Note: RN DG GOLD LEAF ROLLER CM to room to meet with patient for initial transition planning/care coordination assessment. ANGIE CONTE introduced self and role at [facility]. Pt voices understanding and consents to assessment at this time. Pt resting in bed in no distress at this time. Pt is A/O at this time and answers all questions appropriately. Care providers, pharmacy, and demographics verified/updated at this time. PCP: Dr Jonny Serrato--In [place] Specialists: Dr Mario--environmental health specialist in [place], Dr Mancilla--door clamper in [place], Dr Morales--it compliance analyst Preferred Pharmacy: [facility] Retail Insurance: [employer] Prescription Benefit: Yes. Pt confirms he was taking both Xarelto and Brilinta @ home Living Will/HPOA: Has both LW and HPOA, who is his , Marion. Copies of both are on e-file @ [facility] LNOK: , [place] Living Arrangements: Lives with his in one-story home w/basement. 2 steps to enter. Son, with special needs, also lives w/them. Pt is independent w/ADL's. does most home mgmt tasks and manages medications and appts. Transportation: Pt states he is able to drive, but his usually does most of the driving. DME: States has the following DME: built-in shower seat, functioning glucometer w/supplies. He uses no DME to ambulate. Pt stats has a BIPAP at home, but does not use d/t unable to tolerate it/it keeps him up at night. Pt inquiring about wearing O2 via N/C @ HS @ home. ANGIE CONTE informed him to f/u with Dr Morales re: same, as insurance will most likely require an overnight study to be completed for this. Pt voices understanding. ANGIE CONTE spoke w/Dr Morales re: pt's interest in O2 @ HS and he confirms pt can f/u @ his next pulmonology appt re: same. Pt states no need for further DME at this time. HHC/SNF: No hx of either. Pt denies need for HHC at discharge. Pt wishes to return home and states has no concerns with going home at time of discharge. CM to follow for any discharge planning/needs. Pt voices no further concerns/needs at this time. Advised pt to ask for CM if any further questions/concerns/needs arise. Voices understanding. PLAN: Home w/family support and discharge plans in place. Jeremy CUNNINGHAM RN CM
--- NOTE | 2021-04-07 11:20 | CL.D_ITS ---
Patient Name: SAL SPENCER Study Date: 04/07/2021 Performing: Wilfrido Morocho MD Ht: 70.07 inches 178 cm : 1945 Wt: 176.37 lbs 80 kg Age: 76 Gender: male BSA: 1.98 PROCEDURE(S) PERFORMED DC19-UPV/COR/LV CLINICAL PROFILE AND INDICATIONS Indications: Worsening Angina Heart Failure: None Stress/Imaging Stress/Image Study Performed: No CAD Presentations: Unstable angina. CONCLUSIONS Severe [place] coronary artery disease with adequate vascularization. Totally occluded right coronary artery with [id number] collaterals, previously stented proximal and mid left anterior descending a rtery with moderate in-stent stenosis, previously stented left circumflex artery with moderate in-sadi nt stenosis. RECOMMENDATIONS Medical therapy Patient also had atrial fibrillation so would add amiodarone and continue the Xarelto. DESCRIPTION OF PROCEDURE The patient arrived to the procedure lab. The risks and benefits of the procedure as well as a full d escription of our services here and current unavailability of surgical backup were fully explained to the patient and/or their significant other prior to the catheterization. The Timeout was completed, verifying the correct patient and procedure. The patient's procedural site was prepped and draped in the usual fashion. Local anesthetic was given subcutaneously to right radial region with Lidocaine 2% . Using a modified Seldinger technique, arterial access was obtained via the right radial artery, a 6 Fr sheath was inserted. Left Coronary Artery selective angiography was performed in multiple views u sing a 5 Fr. 4.0 [place] catheter. Left Ventriculography was performed in [place] projection using a 5 Fr. Pigtail catheter. LV to AO pullback pressures were then recorded.The arterial sheath was pulled and a TR Band was applied for hemostasis w/ 12 ml air CORONARY ANGIOGRAPHY DOMINANCE: Right Dominant LEFT HEART ASSESSMENT Left Ventricular Ejection Fraction: by LV Gram 60 % Normal LV wall motion Normal Left Ventricular systolic function LEFT MAIN: Mild calcification LEFT ANTERIOR DESCENDING ARTERY: PROX LAD: Previously placed stent has an instent 40 % restenosis MID LAD: Previously placed stent has an instent 60 % restenosis DISTAL LAD: Mild luminal irregularities less than 30% CIRCUMFLEX ARTERY: MID CIRC: Instent restenosis 40 % DISTAL CIRC: Instent restenosis 60 % RIGHT CORONARY ARTERY: OSTIAL RCA: is occluded COLLATERAL FLOW: Collateral flow from Left to Right COMPLICATIONS No Complications PROCEDURE MEDICATIONS Versed 2 mg IV Versed 1 mg IV Oxygen: 2 L/min via nasal cannula Heparin given IA 04/07/2021 10:52:32 Verapamil 2.5mg, Ntg 100mcgs, 2000 units of Heparin given IA 04/07/2021 10:52:32 SUMMARY OF HEMODYNAMIC DATA Time AIR REST ECG 10:23:27 AO 110/41 (64) SA 10:55:38 LV 130/-3, 8 11:02:35 LV 128/-3, 7 11:02:41 LV 127/1, 11 11:03:21 LV 121/-1, 9 11:03:26 LVp 126/-3, 7 11:03:30 AOp 128/40 (73) 11:03:35 RM AIR REST 11:19:46 Signed By Wilfrido Morocho MD On 04/07/2021 11:20:06 AM Wilfrido Morocho MD
--- NOTE | 2021-04-07 11:24 | PN.CARD_ITS ---
Subjective Subjective Patient is seen and evaluated. Underwent cardiac catheterization today. Objective Data Vital Signs: Vital Signs Temp Pulse Resp BP Pulse Ox 98 F 71 21 H 127/81 H 99 04/07/21 08:00 04/07/21 10:00 04/07/21 10:00 04/07/21 10:00 04/07/21 10:00 Oxygen Flow Rate (L/min) 2 Oxygen Delivery Method Room Air Weight: 176 lb 9.6 oz Body Mass Index (BMI) 25.8 Intake & Output: Intake and Output for Last 24 Hours 04/05/21 04/06/21 04/07/21 23:59 23:59 23:59 Intake Total 1436.22 / 1449.32 77.6 / 77.6 Output Total 575 / 750 1400 / 1400 Balance 861.22 / 699.32 -1322.4 / -1322.4 Lab / Micro Data Result Diagrams: 04/07/21 05:15 04/07/21 05:15 Labs: Laboratory Results - last 24 hr 04/06/21 06:07: Magnesium 2.2 04/06/21 12:30: POC Glucose 224 H 04/06/21 12:40: APTT 59.9 H 04/06/21 16:37: POC Glucose 375 H 04/06/21 18:10: APTT Cancelled 04/06/21 20:13: APTT 242.5 H* 04/06/21 23:22: POC Glucose 304 H 04/07/21 05:15: WBC 6.1, RBC 3.58 L, Hgb 10.0 L, Hct 31.7 L, MCV 88.5, MCH 27.9, MCHC 31.5 L, RDW Std Deviation 45.6 H, RDW Coeff of Rosa 14.1, Plt Count 242, MPV 9.0, Immature Gran % (Auto) 1.200 H, Neut % (Auto) 68.1, Lymph % (Auto) 14.2 L, [place] % (Auto) 10.9 H, Eos % (Auto) 5.1 H, Baso % (Auto) 0.5, Absolute Neuts (auto) 4.1, Absolute Lymphs (auto) 0.86, Nucleated RBC % 0 04/07/21 05:15: Sodium 136, Potassium 4.1, Chloride 105, Carbon Dioxide 25.0, Anion Gap 6, BUN 40 H, Creatinine 1.71 H, Estim Creat Clear Calc 36.76, Est GFR (MDRD) Af Amer 50 L, Est GFR (MDRD) Non-Af 41 L, BUN/Creatinine Ratio 23.4 H, Glucose 165 H, Calcium 8.4 L 04/07/21 05:15: APTT 149.2 H* 04/07/21 05:18: POC Glucose 148 H Micro: Microbiology 04/07/21 07:45 Mucosa - Nose SARS-CoV-2 Antigen (Rapid) - Final Cardiology Labs/Tests 04/06/21 06:07: Magnesium 2.2 04/06/21 12:40: APTT 59.9 H 04/06/21 18:10: APTT Cancelled 04/06/21 20:13: APTT 242.5 H* 04/07/21 05:15: WBC 6.1, RBC 3.58 L, Hgb 10.0 L, Hct 31.7 L, MCV 88.5, MCH 27.9, MCHC 31.5 L, Plt Count 242, MPV 9.0, Immature Gran % (Auto) 1.200 H, Neut % (Auto) 68.1, Lymph % (Auto) 14.2 L, [place] % (Auto) 10.9 H, Eos % (Auto) 5.1 H, Baso % (Auto) 0.5, Absolute Neuts (auto) 4.1, Nucleated RBC % 0 04/07/21 05:15: Sodium 136, Potassium 4.1, Chloride 105, Carbon Dioxide 25.0, Anion Gap 6, BUN 40 H, Creatinine 1.71 H, Est GFR (MDRD) Af Amer 50 L, Est GFR (MDRD) Non-Af 41 L, BUN/Creatinine Ratio 23.4 H, Glucose 165 H, Calcium 8.4 L 04/07/21 05:15: APTT 149.2 H* Rhythm: EKG: ECHO: Stress Test: Cardiac Cath: PCI: CT Surgery: Holter monitor: EPS: PPM: CXR: Chest CT Scan: Physical Exam Const oriented x3 and healthy appearing Orientation / Consciousness: awake HEENT normocephalic Eyes PERRL and conjunctivae normal Neck supple, no JVD and no carotid bruits Chest inspection of chest normal Resp normal respiratory effort and clear to auscultation bilaterally Cardio Palpation: normal PMI Rate: regular rate Rhythm: regular rhythm Heart Sounds: S1 normal and S2 normal Peripheral Pulses: pulses 2+ throughout GI normal to inspection, nondistended, normoactive bowel sounds Extremity normal to inspection and no clubbing, cyanosis or edema Psych mental status grossly normal Assessment & Plan Assessment/Plan (1) Paroxysmal atrial fibrillation: PLAN: Patient has paroxysmal atrial fibrillation. He has converted to sinus rhythm. I would recommend that we start him on amiodarone 200 mg twice a day for a week and then 200 mg a day. He can be started back on his Xarelto in a.m. His ejection fraction is normal. (2) History of coronary artery stent placement: PLAN: Patient underwent cardiac catheterization which demonstrated the following: Normal left main coronary artery. Left anterior descending artery with proximal and mid stents with up to 60% s tenosis diffuse distal disease noted. Left circumflex artery previously stented in the mid and distal segments with 50% in-stent stenosis and diffusely diseased distal circumflex artery. Totally occluded right coronary artery with [id number] collaterals. Preserved ejection fraction. Based on the above angiographic findings the patient to be treated with aggressive medical therapy. He will continue follow-up in the [facility] office. (3) Essential (primary) hypertension: PLAN: His blood pressure appears to be under good control at this time and I would not recommend that we make any changes. Thank you for allowing me to participate in the care of your patient. Please don't hesitate to call if any issues arise.
[2021-04-07] MEDS: 0.9% Normal Saline 1,000 ML 60 ML IV (11:35)
[2021-04-07] MEDS: Insulin Lispro 100 UNIT/ML INSULN.PEN SC ×3 (11:54→23:27)
[2021-04-07] MEDS: Acetaminophen 325 MG Tablet 650 MG PO ×2 (11:56→22:19)
[2021-04-07 12:05] LABS: Bedside Glucose 192 mg/dL (70-110)
[2021-04-07 16:55] LABS: Bedside Glucose 257 mg/dL (70-110)
--- NOTE | 2021-04-07 17:18 | PN.RENAL_ITS ---
Subjective Subjective no new complaints. Status post coronary angiogram. Medical treatment for now Objective Data Objective Data Vital Signs: Vital Signs Temp Pulse Resp BP Pulse Ox 98.2 F 98 20 H 132/74 H 99 04/07/21 15:00 04/07/21 15:58 04/07/21 15:00 04/07/21 15:00 04/07/21 15:00 Oxygen Flow Rate (L/min) 2 Oxygen Delivery Method Room Air Weight: 80.104 kg Body Mass Index (BMI) 25.8 Intake & Output: Intake and Output for Last 24 Hours 04/05/21 04/06/21 04/07/21 23:59 23:59 23:59 Intake Total 1436.22 / 1449.32 1067.6 / 1067.6 Output Total 575 / 750 1900 / 1900 Balance 861.22 / 699.32 -832.4 / -832.4 Medical Nutrition Assessment Dietitian: Nutrition Therapy Diagnosis Start: 04/07/21 11:36 Freq: Status: Active Protocol: Document 04/07/21 11:47 FRAN (Rec: 04/07/21 11:47 SLA [id number]) Nutrition Malnutrition Evidence of Malnutrition Exists No Clinical Problem Altered Nutrient-Related Laboratory Values Etiology related to renal/endocrine dysfunction Signs/Symptoms as evidenced by BUN 40, Cr 1. 71, gluc 165 Status Active Problem Recommendation Dietitian Recommendations/Changes Will change diet to 1800 calorie/ Cardiac / Sodium restricted diet - consider fluid restriction as indicated - d/t pmhx CKD4 Lab / Micro Data Result Diagrams: 04/07/21 05:15 04/07/21 05:15 Labs: Laboratory Results - last 24 hr 04/06/21 18:10: APTT Cancelled 04/06/21 20:13: APTT 242.5 H* 04/06/21 23:22: POC Glucose 304 H 04/07/21 05:15: WBC 6.1, RBC 3.58 L, Hgb 10.0 L, Hct 31.7 L, MCV 88.5, MCH 27.9, MCHC 31.5 L, RDW Std Deviation 45.6 H, RDW Coeff of Rosa 14.1, Plt Count 242, MPV 9.0, Immature Gran % (Auto) 1.200 H, Neut % (Auto) 68.1, Lymph % (Auto) 14.2 L, Trinity % (Auto) 10.9 H, Eos % (Auto) 5.1 H, Baso % (Auto) 0.5, Absolute Neuts (au to) 4.1, Absolute Lymphs (auto) 0.86, Nucleated RBC % 0 04/07/21 05:15: Sodium 136, Potassium 4.1, Chloride 105, Carbon Dioxide 25.0, Anion Gap 6, BUN 40 H, Creatinine 1.71 H, Estim Creat Clear Calc 36.76, Est GFR (MDRD) Af Amer 50 L, Est GFR (MDRD) Non-Af 41 L, BUN/Creatinine Ratio 23.4 H, Glucose 165 H, Calcium 8.4 L 04/07/21 05:15: APTT 149.2 H* 04/07/21 05:18: POC Glucose 148 H 04/07/21 11:53: POC Glucose 192 H 04/07/21 16:47: POC Glucose 257 H Micro: Microbiology 04/07/21 07:45 Mucosa - Nose SARS-CoV-2 Antigen (Rapid) - Final Physical Exam Narrative Alert awake oriented x 3 no obvious distress no pallor no icterus no JVD s1s2 no murmurs lungs clear abdomen soft no organomegaly no edema no cyanosis Assessment & Plan Assessment/Plan (1) CKD (chronic kidney disease) stage 4, GFR 15-29 ml/min: PLAN: He has known history of CKD stage IIIB/4. Baseline creatinine has been around 1.7-1.9. Current creatinine is close to baseline. Urine analysis does show hematuria. Also has infiltrates on the lung. Serologies that are back negative. Some of the antibodies are pending. Status post angiogram.
[2021-04-07] MEDS: Amiodarone 200 MG Tablet PO (22:19)
[2021-04-07] MEDS: Atorvastatin Calcium 40 MG Tablet PO (22:19)
[2021-04-07 23:35] LABS: Bedside Glucose 301 mg/dL (70-110)
[2021-04-08] VITALS: PULSE 82
[2021-04-08] MEDS: 0.9% Normal Saline 1,000 ML 60 ML IV (03:38)
[2021-04-08 04:00] VITALS: BP 145/56; PULSE 71; RESP 20; TEMP 36.6; O2SAT 100
[2021-04-08] MEDS: Propranolol 40 MG Tablet 80 MG PO (06:08)
[2021-04-08 07:07] VITALS: PULSE 64
[2021-04-08 07:51] VITALS: O2SAT 96
--- NOTE | 2021-04-08 07:56 | DS.PCM_ITS ---
Providers Date of Admission: 04/06/21 Primary Care Physician: Dr. Jonny Serrato MD Consultations 04/06/21 04:59 Consult: Cardiology Routine Consulting Provider: Nguyễn Delgado Reason for Consult: NSTEMI EMERGENT Consult: No Notified: Yes Date Notified: 04/06/21 Time Notified: 04:12 Method of Notification: Verbal Method of Consult:: In-Person Comments:: ED Doc discussed with Dr. Delgado 04/06/21 13:59 Consult: Nephrology Routine Consulting Provider: Dominick Yancey Reason for Consult: CKD, Contrast induced nephropathy EMERGENT Consult: Yes MD Notified: Yes Date Notified: 04/06/21 Time Notified: 14:00 Method of Notification: Answering Service Method of Consult:: In-Person Reason For Visit: NSTEMI Diagnosis Discharge Diagnosis (1) CKD (chronic kidney disease) stage 4, GFR 15-29 ml/min: Status: Chronic Code(s): N18.4 - Chronic kidney disease, stage 4 (severe) Medications at Discharge Home Medications amlodipine 2.5 mg PO DAILY 05/15/17 aspirin 81 mg PO DAILY@0800 05/15/17 famotidine 20 mg PO BID 05/15/17 insulin lispro 25 unit SUBCUT BREAKFAST 05/15/17 insulin lispro 25 unit SUBCUT DINNER 05/15/17 insulin lispro 25 unit SUBCUT LUNCH 05/15/17 propranolol 80 mg PO TID 05/15/17 acetaminophen 650 mg PO Q4H PRN PRN tab 05/17/17 albuterol sulfate 90 mcg/actuation aerosol inhaler 2 puff INHALATION Q6H PRN 09/22/18 rivaroxaban 15 mg PO DAILY 05/22/19 Lantus U-100 Insulin 18 unit SUBCUT QHS 03/28/21 losartan 25 mg PO DAILY 03/28/21 omeprazole 40 mg PO DAILY 03/28/21 Brilinta 90 mg PO BID 04/06/21 amiodarone 200 mg PO DAILY #100 tab 04/08/21 atorvastatin 40 mg PO QHS #90 tab 04/08/21 Hospital Course Summary of Care Provided Minutes Spent on Discharge: 35 Hospital Course: Patient is a 76-year-old gentleman with multiple comorbidities including coronary artery disease with previous stent placement paroxysmal A. fib CKD admitted with chest pain. Patient was found to be in A. fib with RVR as well as with elevated troponin. Patient was started on Cardizem and admitted to the intensive care unit with consultation placed to cardiology 1. Atrial fibrillation with rapid ventricular response -Admitted to the intensive care unit managed with Cardizem as well as heparin. Patient was previously on Xarelto held. Consult placed to cardiology plan is for patient to undergo left heart catheterization with possible intervention if warranted on 04/07/2021 -He was discharged home on amiodarone 200 mg p.o. twice daily for a week and subsequently 20 mg daily 2. Acute Non-ST elevation TN -Patient managed per guideline. Consultation placed to cardiology plans for patient to undergo left heart catheterization -Patient underwent left catheterization on 04/07/[address] Davis findings are as below Normal left main coronary artery. Left anterior descending artery with proximal and mid stents with up to 60% stenosis diffuse distal disease noted. Left circumflex artery previously stented in the mid and distal segments with 50% in-stent stenosis and diffusely diseased distal circumflex artery. Totally occluded right coronary artery with copg-of-ljpxg collaterals. Preserved ejection fraction. Based on the above angiographic findings cardiology recommended further the price ent to be treated with aggressive medical therapy. 3. Coronary artery disease ?With previous PCI 4. Hypertension - Blood pressure controlled, home medications continued with dose adjustment as needed 5. Diabetes mellitus type II -patient's oral hypoglycemics held. Placed on long acting insulin, Accu-Cheks a.c. and at bedtime and covered with sliding scale insulin 6. Chronic kidney disease ?Secondary to diabetic nephropathy consult placed to nephrology in view of concerns for possible contrast-induced nephropathy 7. Peripheral arterial disease Vascular history 8. COPD ?Currently not in exacerbation 9. Peripheral arterial disease 10. Dyslipidemia -Patient is on statin therapy, continued at home dose Physical Exam Narrative GENERAL: cooperative HEENT: Atraumatic; EYES; Anicteric, Normal Conjunctiva NECK; supple, normal thyroid, RESPIRATORY: Diminished to auscultation CARDIOVASCULAR: Regular S1 S2, GI: soft, normoactive bowel sounds, : No Renal angle tenderness; EXTREMITIES: No edema, no clubbing, MUSCULOSKELETAL: no muscle waisting NEURO: Awake; no lateralizing signs. SKIN: No Rash PSYCH; Flat affect Medical Records Data Medical Nutrition Assessment Dietitian: Nutrition Therapy Diagnosis Start: 04/07/21 11:36 Freq: Status: Active Protocol: Document 04/07/21 11:47 FRAN (Rec: 04/07/21 11:47 SLA [id number]) Nutrition Malnutrition Evidence of Malnutrition Exists No Clinical Problem Altered Nutrient-Related Laboratory Values Etiology related to renal/endocrine dysfunction Signs/Symptoms as evidenced by BUN 40, Cr 1. 71, gluc 165 Status Active Problem Recommendation Dietitian Recommendations/Changes Will change diet to 1800 calorie/ Cardiac / Sodium restricted diet - consider fluid restriction as indicated - d/t pmhx CKD4 Weight / BMI Weight Weight: 79.4 kg Body Mass Index (BMI) 25.8 ABG / Lab / Microbiology Data Result Diagrams: 04/07/21 05:15 04/07/21 05:15 Laboratory: Laboratory Results - last 24 hr 04/07/21 11:53: POC Glucose 192 H 04/07/21 16:47: POC Glucose 257 H 04/07/21 23:25: POC Glucose 301 H Microbiology: Microbiology 04/07/21 07:45 Mucosa - Nose SARS-CoV-2 Antigen (Rapid) - Final D/C Instructions Discharge Diet: 1800 Calorie Control Diet Discharge Activity: Return to Normal Activity Call your doctor if you observe: Fever of 101 or Higher, Shortness of breath, Fainting spells and Chest pain Meaningful Use Info Meaningful Use Diagnoses (Choose all that apply): None applicable Discharge Plan Admission Admit Date/Time: 04/06/21 04:16 Primary Reason for Your Visit: A. fib with RVR Attending Provider: Jareth Bobo Primary Care Provider: Jonny Serrato Consulting Providers: Nguyễn Delgado ; Dominick Yancey Discharge Orders/Prescriptions Prescriptions: New atorvastatin 40 mg Tablet 40 mg PO QHS Qty: 90 RF: 0 amiodarone 200 mg Tablet 200 mg PO DAILY Qty: 100 RF: 0 Continued ProAir HFA 90 mcg/actuation HFA aerosol inhaler 2 puff INHALATION Q6H PRN (Reason: Sob &/Or Wheezing) RF: 0 propranolol 80 MG tablet 80 mg PO TID RF: 0 amlodipine 2.5 MG tablet 2.5 mg PO DAILY RF: 0 famotidine 20 MG tablet 20 mg PO BID RF: 0 aspirin 81 MG tablet,chewable 81 mg PO DAILY@0800 RF: 0 insulin lispro 100 UNIT/ML cartridge 25 unit subcut LUNCH RF: 0 insulin lispro 100 UNIT/ML cartridge 25 unit subcut BREAKFAST RF: 0 insulin lispro 100 UNIT/ML cartridge 25 unit subcut DINNER RF: 0 acetaminophen 325 MG tablet 650 mg PO Q4H PRN PRN (Reason: fever, pain) RF: 0 rivaroxaban 15 MG tablet 15 mg PO DAILY RF: 0 Lantus U-100 Insulin 100 unit/mL solution 18 unit SUBCUT QHS RF: 0 omeprazole 40 mg capsule,delayed release(DR/EC) 40 mg PO DAILY RF: 0 losartan 25 mg tablet 25 mg PO DAILY RF: 0 Brilinta 90 mg tablet 90 mg PO BID RF: 0 Referrals / Follow Up: Wilfrido Morocho MD [STAFF PHYSICIAN] - 05/02/21 9:45 am (Follow up appointment May 02 945) Jonny Serrato MD [Primary Care Provider] - In 1 Week Disposition Disposition (needs filled in before D/C Order can be placed): Home, Self Care Charges/Coding Visit Charges Inpatient E&M: 28628 Disch Hosp
[2021-04-08 08:00] VITALS: BP 144/64; PULSE 84; RESP 19; TEMP 36.7; O2SAT 99
--- NOTE | 2021-04-08 08:12 | PCM.DC ---
Discharge Instructions Diet Discharge Diet: 1800 Calorie Control Diet Dressing / Incision Call your doctor if you observe: Fever of 101 or Higher, Shortness of breath, Fainting spells and Chest pain Follow Up Care Test Results: Test results from this visit will be discussed in further detail at your follow-up appointment, if applicable. Discharge Plan Admission Admit Date/Time: 04/06/21 04:16 Primary Reason for Your Visit: A. fib with RVR Attending Provider: Jareth Bobo Primary Care Provider: Jonny Serrato Consulting Providers: Nguyễn Delgado ; Dominick Yancey Discharge Orders/Prescriptions Prescriptions: New atorvastatin 40 mg Tablet 40 mg PO QHS Qty: 90 RF: 0 amiodarone 200 mg Tablet 200 mg PO DAILY Qty: 100 RF: 0 Continued ProAir HFA 90 mcg/actuation HFA aerosol inhaler 2 puff INHALATION Q6H PRN (Reason: Sob &/Or Wheezing) RF: 0 propranolol 80 MG tablet 80 mg PO TID RF: 0 amlodipine 2.5 MG tablet 2.5 mg PO DAILY RF: 0 famotidine 20 MG tablet 20 mg PO BID RF: 0 aspirin 81 MG tablet,chewable 81 mg PO DAILY@0800 RF: 0 insulin lispro 100 UNIT/ML cartridge 25 unit subcut LUNCH RF: 0 insulin lispro 100 UNIT/ML cartridge 25 unit subcut BREAKFAST RF: 0 insulin lispro 100 UNIT/ML cartridge 25 unit subcut DINNER RF: 0 acetaminophen 325 MG tablet 650 mg PO Q4H PRN PRN (Reason: fever, pain) RF: 0 rivaroxaban 15 MG tablet 15 mg PO DAILY RF: 0 Lantus U-100 Insulin 100 unit/mL solution 18 unit SUBCUT QHS RF: 0 omeprazole 40 mg capsule,delayed release(DR/EC) 40 mg PO DAILY RF: 0 losartan 25 mg tablet 25 mg PO DAILY RF: 0 Brilinta 90 mg tablet 90 mg PO BID RF: 0 Referrals / Follow Up: Wilfrido Morocho MD [STAFF PHYSICIAN] - 05/02/21 9:45 am (Follow up appointment May 02 945) Jonny Serrato MD [Primary Care Provider] - In 1 Week Disposition Disposition (needs filled in before D/C Order can be placed): Home, Self Care
[2021-04-08 08:25] LABS: Bedside Glucose 211 mg/dL (70-110)
[2021-04-08] MEDS: Insulin Lispro 100 UNIT/ML INSULN.PEN SC (08:25)
[2021-04-08] MEDS: Famotidine 20 MG Tablet PO (08:26)
[2021-04-08] MEDS: Aspirin E.C. 81 MG Tablet PO (08:26)
[2021-04-08] MEDS: Losartan Potassium 25 MG Tablet PO (08:26)
[2021-04-08] MEDS: Amiodarone 200 MG Tablet PO (08:26)
[2021-04-08] MEDS: TICAGRELOR 90 MG TABLET PO (08:26)
--- NOTE | 2021-04-09 14:43 | CASEMGMT ---
ANGIE CONTE Discharge Follow-up Phone Call: ELLE: Jose Strata: 3 Call Date: 04/09/21 Discharge Date: 04/08/21 Time of Call: 1440 Duration: 4 min Admitting Diagnosis: NSTEMI ANGIE CONTE completed follow-up phone call after recent hospitalization. Patient's answered, patient resting. states patient is doing well. No questions regarding discharge instructions. Patient was able to fill prescriptions without any issues. Patient has follow-up appts scheduled. had no further questions or concerns.
== END 2021-04-08 11:00 | disposition home or self-care (01) | DRG 280 ==
LOC: ED 04-06 01:12 → PCU 04-06 05:21 → ICU 04-07 07:11
PROVIDERS: Internal Medicine; Internal Medicine Interventional Cardiology; Admitting Provider Hospitalist; Emergency Provider Student in an Organized Health Care Education/Training Program; PCP Internal Medicine; Visit Provider Internal Medicine
DX: I21.4 Non-ST elevation (NSTEMI) myocardial infarction (principal); J18.9 Pneumonia, unspecified organism; N18.4 Chronic kidney disease, stage 4 (severe); J44.0 Chronic obstructive pulmonary disease with (acute) lower respiratory infection; E11.22 Type 2 diabetes mellitus with diabetic chronic kidney disease; E11.51 Type 2 diabetes mellitus with diabetic peripheral angiopathy without gangrene; E78.5 Hyperlipidemia, unspecified; G43.909 Migraine, unspecified, not intractable, without status migrainosus; G47.33 Obstructive sleep apnea (adult) (pediatric); I12.9 Hypertensive chronic kidney disease with stage 1 through stage 4 chronic kidney disease, or unspecified chronic kidney disease; I25.2 Old myocardial infarction; I25.119 Atherosclerotic heart disease of native coronary artery with unspecified angina pectoris; I48.0 Paroxysmal atrial fibrillation; I71.2 Thoracic aortic aneurysm, without rupture; Z86.73 Personal history of transient ischemic attack (TIA), and cerebral infarction without residual deficits; Z95.5 Presence of coronary angioplasty implant and graft; Z79.4 Long term (current) use of insulin; Z79.01 Long term (current) use of anticoagulants; Z79.02 Long term (current) use of antithrombotics/antiplatelets; Z79.899 Other long term (current) drug therapy; Z87.891 Personal history of nicotine dependence
CPT/HCPCS: 36415; 71045; 80048; 80061; 82962; 83735; 84443; 84484; 85025; 85730; 87426; 93005; 93458; 97162; 97166; 99152; 99153; 99285; J7030; Q9967; A4216; C1769; C1894

== ENCOUNTER → 2021-04-15 10:45 | Outpatient (CLI) | payer MEDICARE, OTHER, SELFPAY ==
[2021-04-01 06:38] VITALS: BMI 26.4
[2021-04-05 23:43] VITALS: BMI 25.8
[2021-04-15 11:00] VITALS: PULSE 63; PULSE 66; PULSE 69; PULSE 70; PULSE 71; PULSE 74; PULSE 75; O2SAT 94; O2SAT 95; O2SAT 96; O2SAT 97; O2SAT 98
--- NOTE | 2021-04-15 14:45 | PCM.PSN.6M ---
PSN 6 Minute Walk Test 6 Minute Walk Test 6 Minute Walk Test: 6 Minute Walk Test PSN:6-Minute Walk Test Start: 04/15/21 11:12 Freq: Status: Active Protocol: RESP.6MINW Document 04/15/21 11:00 JOSE (Rec: 04/15/21 11:15 [id number]) 6 Minute Walk Test Date Performed 04/15/21 Time Performed 11:00 Height 5 ft 10 in Weight: 79.379 kg Weight in Pounds 175.[address]: Derrick Morales FIO2 (% Oxygen) 21 Assistive device used: None Pre-test Oxygen Delivery Method Room Air Pulse Ox (%) 97 Pulse Rate (60-100 beats/min) 63 Dyspnea Cici Scale (0-10) 0 Exertion Cici Scale (6-20) 6 1st minute Oxygen Delivery Method Room Air Pulse Ox (%) 98 Pulse Rate (60-100 beats/min) 66 2nd minute Oxygen Delivery Method Room Air Pulse Ox (%) 94 Pulse Rate (60-100 beats/min) 69 3rd minute Oxygen Delivery Method Room Air Pulse Ox (%) 95 Pulse Rate (60-100 beats/min) 71 4th minute Oxygen Delivery Method Room Air Pulse Ox (%) 95 Pulse Rate (60-100 beats/min) 71 5th minute Oxygen Delivery Method Room Air Pulse Ox (%) 95 Pulse Rate (60-100 beats/min) 74 6th minute Oxygen Delivery Method Room Air Pulse Ox (%) 96 Pulse Rate (60-100 beats/min) 75 Post-test Oxygen Delivery Method Room Air Pulse Ox (%) 94 Pulse Rate (60-100 beats/min) 70 Dyspnea Cici Scale (0-10) 3 Exertion Cici Scale (6-20) 13 Full Laps Walked 15 Partial Lap, Number of Tiles Walked 0 Total Distance Walked (ft) 885 Interpretation Interpretation: The patient was able to ambulate 885 feet over the course of 6 minutes on room air with no assistive devices or breaks. The patient experienced no significant desaturation or tachycardia. These findings are consistent with a musculoskeletal limitation exercise tolerance. Recommendations Recommendations: No supplemental oxygen is indicated at this time.
== END ==
PROVIDERS: PCP Internal Medicine; Referring Provider Internal Medicine Critical Care Medicine; Visit Provider Internal Medicine Critical Care Medicine
DX: R06.02 Shortness of breath (principal)
CPT/HCPCS: 94618

== ENCOUNTER → 2021-04-25 07:44 | Outpatient (CLI) | payer MEDICARE, OTHER, SELFPAY ==
[2021-04-01 06:38] VITALS: BMI 26.4
[2021-04-05 23:43] VITALS: BMI 25.8
[2021-04-17 08:17] VITALS: BMI 24.8
--- NOTE | 2021-04-26 08:06 | PFT_ITS ---
INTRODUCTION: The patient is a 76-year-old male who presents for pulmonary function studies secondary to a diagnosis of dyspnea. Respiratory therapy reported good patient effort. Bronchodilators were used during testing. INTERPRETATION: Forced expiration spirometry demonstrates no evidence of a large airways obstructive ventilatory defect. There was no significant response to aero solized bronchodilators. Spirograms are of fair quality and plateau gradually indicating slow emptying of the lungs. Body plethysmography was performed and revealed a decreased TLC to 4.25 L, 66% of predicted, indicative of a moderate restrictive ventilatory impairment. Diffusing capacity by single breath CO is reduced at 56% of predicted. When compared to previous pulmonary function studies from August 2018, there has been overall stability in the patient's total lung capacity with a 14% reduction in diffusing capacity noted. IMPRESSION: Moderate restrictive ventilatory impairment with symmetric reduction in diffusing capacity.
== END ==
PROVIDERS: PCP Internal Medicine; Referring Provider Internal Medicine Critical Care Medicine; Visit Provider Internal Medicine Critical Care Medicine
DX: R06.02 Shortness of breath (principal)
CPT/HCPCS: 94060; 94726; 94729

== ENCOUNTER → 2021-05-07 14:27 | Outpatient (CLI) | payer MEDICARE, OTHER, SELFPAY ==
--- NOTE | 2021-05-07 14:31 | CT_ITS ---
STUDY: CT CHEST WITH CONTRAST REASON FOR EXAM: Male, 76 years old. Follow ground glass on previous scan RADIATION DOSAGE (If Supplied By Facility): CTDIvol = ( 12.38 ) mGy, DLP = ( 447.53 ) mGycm TECHNIQUE: Transaxial imaging was performed following intravenous administration of IV 100mL Isovue-370. Multiplanar coronal and sagittal images were reformatted. Individualized dose optimization techniques were used for this CT. COMPARISON: Comparison is made with prior examination of 03/28/2021 FINDINGS: Since prior examination, there has been progressive increased interstitial markings with areas of confluence and along the posterior aspect of the left upper lobe as well as the lingular segment of the left upper lobe and left lower lobes. Persistent increased interstitial markings involving the right upper lobe and right lower lobe as well as right middle lobe with areas of confluence. This is suggestive of chronic interstitial scarring. There is no demonstrated pleural abnormality. There are calcifications of the coronary arteries. Normal mediastinum. Normal hilar regions. Normal enhanced pulmonary arteries. There is atherosclerotic calcification of the aortic arch with tortuosity and elongation of the aortic arch and descending thoracic aorta. There are multi-level degenerative changes of the thoracic spine. There is no demonstrated abnormality of the visualized upper abdomen. CT/Chest WITH Contrast IMPRESSION: Since prior study, and hasn''t been progression of the interstitial markings with areas of confluence worse in the left lung. This is suggestive of chronic interstitial fibrosis. Electronically Signed: Maxi Austin MD at 15:44 EDT , Service support ,
== END ==
PROVIDERS: PCP Internal Medicine; Referring Provider Nurse Practitioner Acute Care; Visit Provider Nurse Practitioner Acute Care
DX: R06.02 Shortness of breath (principal)
CPT/HCPCS: 71260; Q9967

== ENCOUNTER 2021-05-22 10:33 | Day surgery (SDC) | payer MEDICARE, OTHER, SELFPAY ==
[2021-05-22] VITALS (10 sets, daily range): BP systolic 87–106; BP diastolic 48–72; PULSE 60–67; RESP 16–32; TEMP 36.3–36.6; O2SAT 92–99; BMI 24.6
--- NOTE | 2021-05-22 | FLU_PTH ---
PATIENT: SAL SPENCER LOC: EN U#:[id number] AGE/SX: 76/M ROOM: RE05/22/[address]: Dr. Derrick Morales DO : 1945 BED: DIS: 05/22/2021 SPEC #: [id number] RECD: 05/22/21 12:41 STATUS: OUSMANE REKedar #: [id number] ARTIE: 05/22/21 00:[address]: Derrick Morales DEPT: CYTOLOGY RECD BY: Donita Cano ENTERED: 05/23/21 08:13 SP TYPE: Fluid OTHR DR: Dr. Jonny Serrato MD Tissues: A - Bronchus of right middle lobe B - Bronchus, NOS Procedures: PC (control) Special Stain Group II Special Stain Group I Surgery Specimen Level IV AFB Stain (control) GMS Stain (control) Cytospin Fluid HEADER OPERATION: Bronchoscopy with BAL PRE-OP DIAGNOSIS: Abnormal chest CT TISSUE SUBMITTED: AAnthony BENNETT, RML, BAnthony BAL, lingula DIAGNOSIS CYTOLOGY A. Bronchoalveolar lavage, right middle lobe lung (cytospin and cell block): Negative for malignant cells. See comment. B. Bronchoalveolar lavage, lingula (cytospin and cell block): Negative for malignant cells. See comment. AM:ann 05/26/2021 COMMENT A & B. AFB, GMS and PC stains with matched controls are negative for micro-organisms. Clinical correlation is suggested. CYTOLOGY STUDY Slides are reviewed. CYTOLOGY GROSS A. Received is 15 ml of light pink cloudy fluid labeled with the patient's name and and designated per the requisition as RML. Submitted for cytology preparation including cell block. B. Received is 10 ml of dark pink cloudy fluid labeled with the patient's name and and designated per the requisition as lingula. Submitted for cytology preparation including cell block. / cc 05/23/21 TC:5 CPT: 50139 x2, 11670 x2, 40882 x4, 99942
--- NOTE | 2021-05-22 07:12 | HP.PCM_ITS ---
HPI - General HPI Narrative The patient is a 76-year-old male who presents today for bronchoscopy due to a history of progressive dyspnea. The patient was initially referred to me at the beginning of September 2018 for evaluation of shortness of breath. The patient reported a smoking history that included upwards of 2 packs/day x 30 years. The patient quit smoking completely in 1983. The patient also reported having been previously diagnosed with obstructive sleep apnea. However, he is noncompliant with the use of noninvasive nocturnal positive pressure ventilation. He also has a history of coronary artery disease and follows with Dr. Mario of cardiology. The patient was recently admitted to the hospital in March 2021 with chest pain. Patient was evaluated by cardiology and underwent cardiac catheterization which revealed severe [place] coronary artery disease with adequate vascularization. Medical therapy was recommended. Recent 6-minute walk test completed at the beginning of April 2021 revealed a resting oxygen saturation of 97% on room air. With ambulation, the jorgito oxygen saturation was 94%. The patient was able to ambulate a total of 885 feet. Pulmonary function studies also completed at the beginning of April 2021 revealed evidence of a moderate restrictive ventilatory impairment with symmetric reduction in diffusing capacity. Since 2018, there has been overall stability in the patient's total lung capacity. However, there was a 14% reduction in diffusing capacity noted. CT chest completed on May 07 revealed progressive interstitial groundglass changes, most pronounced throughout the right hemithorax and now involving the left side as well. [facility] Medical History (Updated 05/22/21 @ 07:[address] Derrick Morales, DO) Alcohol use Anxiety Arthritis Back pain BiPAP (biphasic positive airway pressure) dependence Cardiology follow-up encounter Chest pain CKD (chronic kidney disease) stage 3, GFR 30-59 ml/min CKD (chronic kidney disease) stage 4, GFR 15-29 ml/min COPD (chronic obstructive pulmonary disease) Coronary artery disease CPAP (continuous positive airway pressure) dependence CVA (cerebral vascular accident) Depression Diabetes Dietary restriction DM2 (diabetes mellitus, type 2) Emphysema lung Essential (primary) hypertension Former smoker Gastric reflux History of echocardiogram History of heart attack History of irregular heartbeat History of non-ST elevation myocardial infarction (NSTEMI) (04/06/21) History of pain when walking History of stress test Hyperlipemia Insulin dependent diabetes mellitus Kidney disease Kidney disease, chronic, stage II (GFR 60-89 ml/min) Kidney stone on right side Leg cramps Loss of hearing Low iron Migraines Myocardial infarct Nicotine dependence, cigarettes, in remission RENEE (obstructive sleep apnea) PAD (peripheral artery disease) Paroxysmal atrial fibrillation Pulmonary nodule Renal artery stenosis Restless legs Shortness of breath on exertion Syncope Thoracic aortic aneurysm TIA (transient ischemic attack) (~09/13/09) Vitamin B12 deficiency Wears glasses Home Medications amlodipine 2.5 mg PO DAILY 05/15/17 [History Last Taken 07/15/20] aspirin 81 mg PO DAILY@0800 05/15/17 [History Last Taken 07/15/20] famotidine 20 mg PO BID 05/15/17 [History Last Taken 07/15/20] propranolol 80 mg PO BID 05/15/17 [History Last Taken 07/15/20] acetaminophen 650 mg PO Q4H PRN PRN tab 05/17/17 [Rx Last Taken Unknown] rivaroxaban 15 mg PO DAILY 05/22/19 [History Last Taken 04/05/21] Lantus U-100 Insulin 18 unit SUBCUT QHS 03/28/21 [History Last Taken 04/04/21] losartan 25 mg PO DAILY 03/28/21 [History Last Taken Unknown] omeprazole 40 mg PO DAILY 03/28/21 [History Last Taken Unknown] Brilinta 90 mg PO BID 04/06/21 [History Last Taken 04/05/21] amiodarone 200 mg PO DAILY #100 tab 04/08/21 [Rx Last Taken Unknown] atorvastatin 40 mg PO QHS #90 tab 04/08/21 [Rx Last Taken Unknown] albuterol sulfate 90 mcg/actuation aerosol inhaler 2 puff INHALATION Q6H PRN #8.5 g 05/09/21 [Rx Last Taken Unknown] insulin lispro [Humalog U-100 Insulin] 25 unit SUBCUT TID 05/15/21 [History Last Taken Unknown] Allergy/AdvReac Type Severity Reaction Status Date / Time hydromorphone [From Dilaudid] Allergy Severe Unknown Verified 05/15/21 11:31 melon AdvReac Severe Unknown Verified 05/15/21 11:31 promethazine [From Phenergan] AdvReac Severe Unknown Verified 05/15/21 11:31 Opioids - Morphine Analogues AdvReac Vomiting Verified 05/15/21 11:31 Family History Father Cirrhosis Mother Cancer lung Surgical History (Updated 05/15/21 @ 11:54 by Bonnie Stapleton) History of cardiac catheterization (04/07/21) History of carpal tunnel release History of coronary artery stent placement (08/28/20) History of heart artery stent History of inguinal hernia repair Hx of lithotripsy Social History household members: spouse and children housing: house Smoking Status: Former smoker Tobacco: How many years used: 30 how long ago did patient quit smokin, 2ppd second hand exposure: Yes substance use type: does not use ROS Constitutional Constitutional: Denies chills or fever(s) Eyes Eyes: Denies blurry vision or change in vision ENT HEENT: Denies abnormal hearing, dysphagia or epistaxis Cardiovascular Cardiovascular: Denies chest pain or syncope Respiratory/Chest Respiratory/Chest: Reports cough and shortness of breath with exertion Gastrointestinal Gastrointestinal: Denies abdominal pain, diarrhea, nausea or vomiting Genitourinary Genitourinary: Denies dysuria or hematuria Musculoskeletal Musculoskeletal: Denies back pain or extremity pain Integumentary Integumentary: Denies dry skin, jaundice or lesions Neurologic Neurologic: Denies abnormal gait or abnormal speech Psychiatric Psychiatric: Denies anxiety or depression Endocrine Endocrinology: Denies change in body appearance Hematologic/Lymphatic Hematologic/Lymphatic: Denies anemia, easy bleeding or easy bruising Physical Exam Const alert and no apparent distress General Appearance: cooperative HEENT normocephalic and head/scalp atraumatic Eyes PERRL and EOMs intact bilaterally Neck supple General: trachea midline Resp normal air movement Auscultation: rales Cardio regular rate and regular rhythm GI normal to inspection, nondistended, normoactive bowel sounds Extremity no clubbing, cyanosis or edema Skin no rashes or lesions noted Neuro no focal motor deficits Psych affect normal Appearance: appropriate Results Lab / Micro Data Micro: Microbiology 05/21/21 09:30 Interface Orders SARS-CoV-2 Antigen (Rapid) - Final Assessment & Plan Assessment/Plan (1) Interstitial lung disease: (2) SOB (shortness of breath): PLAN: Assessment and Plan (1) Restrictive airway disease: The patient's most recent pulmonary function studies revealed evidence of a moderate restrictive ventilatory impairment with symmetric reduction in diffusing capacity. This is most likely secondary to his evolving interstitial lung process. Further work-up will be undertaken as noted below. (2) Interstitial lung disease: The patient continues to have exertional dyspnea. Despite this, the patient 6- minute walk test did not reveal any significant exertional oxygen desaturation. However, his most recent CT chest completed on May 07 revealed progressive interstitial groundglass changes, most pronounced throughout the right hemit horax and now involving the left side as well. Prior autoimmune work-up was unremarkable. Unclear etiology for these changes noted on CT chest. However, one would have to consider infectious and inflammatory processes. I cannot discount the possibility of a hypersensitivity pneumonitis and/or eosinophilic pneumonia. The patient did seem to get some form of symptom relief when he was previously placed on a short course of prednisone. At this time, I'm going to proceed with performing a bronchoscopy with BAL. The indication for the procedure along with risks and benefits were discussed with the patient and his family. They're in agreement to proceed. Depending on the outcome of the bronchoscopy and the results of his bronchial alveolar lavage, patient may need to be started on systemic corticosteroids. Additionally, if the diagnosis remains unclear in the future, consideration could be given to referral to thoracic surgery for VATS biopsy.
[2021-05-22] MEDS: Lactated Ringers 1,000 ML 100 ML IV (11:05)
[2021-05-22] MEDS: Lidocaine 2% (5ml sdv) 5 ML VIAL.MPF (12:31)
--- NOTE | 2021-05-22 12:34 | OP.BRONCH_ITS ---
Patient Name: Ayaz Aguilar Procedure Date: 05/22/2021 12:07 PM Date of : 1945 Age: 76 Procedure: Bronchoscopy Indications: Abnormal CT scan of chest Providers: Derrick Morales MD Referring MD: Derrick Morales MD Medicines: Monitored Anesthesia Care Complications: No immediate complications Procedure: Pre-Anesthesia Assessment: - A History and Physical has been performed. Patient meds and allergies have been reviewed. The risks and benefits of the procedure and the sedation options and risks were discussed with the patient. All questions were answered and informed consent was obtained. Patient identification and proposed procedure were verified prior to the procedure by the physician and the nurse in the procedure room. Mental Status Examination: alert and oriented. Airway Examination: normal oropharyngeal airway. Respiratory Examination: clear to auscultation. CV Examination: normal. ASA Grade Assessment: II - A patient with mild systemic disease. After reviewing the risks and benefits, the patient was deemed in satisfactory condition to undergo the procedure. The anesthesia plan was to use monitored anesthesia care (MAC). Immediately prior to administration of medications, the patient was re-assessed for adequacy to receive sedatives. The heart rate, respiratory rate, oxygen saturations, blood pressure, adequacy of pulmonary ventilation, and response to care were monitored throughout the procedure. The physical status of the patient was re-assessed after the procedure. After I obtained informed consent, the scope was passed under direct vision. Throughout the procedure, the patient's blood pressure, pulse, and oxygen saturations were monitored continuously. The bronchoscope was introduced through the mouth and advanced to the tracheobronchial tree. The procedure was accomplished without difficulty. The patient tolerated the procedure well. Findings: The oropharynx appears normal. The larynx appears normal. The vocal cords appear normal. The subglottic space is normal. The trachea is of normal caliber. The amadou is sharp. The tracheobronchial tree was examined to at least the first subsegmental level. Bronchial mucosa and anatomy are normal; there are no endobronchial lesions, and no secretions. Bronchoalveolar lavage was performed in the right middle lobe of the lung and sent for cell count, bacterial culture, viral smears & culture, and fungal & AFB analysis and cytology. 60 mL of fluid were instilled. 30 mL were returned. The return was cloudy. There were no mucoid plugs in the return fluid. Bronchoalveolar lavage was performed in the lingula of the lung and sent for cell count, bacterial culture, viral smears & culture, and fungal & AFB analysis and cytology. 40 mL of fluid were instilled. 20 mL were returned. The return was cloudy. There were no mucoid plugs in the return fluid. Impression: - Abnormal CT scan of chest - The airway examination was normal. - Bronchoalveolar lavage was performed. Recommendation: - Await BAL and culture results. Procedure Code(s): --- Professional --- 45339, Bronchoscopy, rigid or flexible, including fluoroscopic guidance, when performed; with bronchial alveolar lavage 83954, Bronchoscopy, rigid or flexible, including fluoroscopic guidance, when performed; with bronchial alveolar lavage Diagnosis Code(s): --- Professional --- R93.8, Abnormal findings on diagnostic imaging of other specified body structures CPT copyright 2017 [employer]. All rights reserved. The codes documented in this report are preliminary and upon cotton classer review may be revised to meet current compliance requirements. DO Derrick Amaya MD 05/22/2021 12:34:22 PM This report has been signed electronically. Number of Addenda: 0 Note Initiated On: 05/22/2021 12:07 PM
[2021-05-22 12:35] LABS: Bedside Glucose 171 mg/dL (70-110)
[2021-05-22 12:45] LABS: Cytology, Washings SEE PATHOLOGY REPORT
[2021-05-22 12:49] LABS: Cytology, Washings SEE PATHOLOGY REPORT
[2021-05-22 13:57] LABS: Appearance/Body Fluid SL CLDY; Color/Body Fluid SLIGHTLY PINK; Source- Body Fluid BRONCHIAL LAVAGE
[2021-05-22 13:58] LABS: Appearance/Body Fluid SL CLDY; Color/Body Fluid SLIGHTLY PINK; Source- Body Fluid BRONCHIAL LAVAGE
[2021-05-22 14:14] LABS: Red Cell Count/Body Fluid 1254 /mm3; White Blood Count/Body Fluid 174 /mm3
[2021-05-22 14:19] LABS: Red Cell Count/Body Fluid 2226 /mm3; White Blood Count/Body Fluid 241 /mm3
[2021-05-22 14:25] LABS: Lymphocytes 20 %; Neutrophil (Segs) 20 %; Other Cell Type/BF 60 %
[2021-05-22 14:26] LABS: Body Fluid QC Type(s) BF1Q
[2021-05-22 14:30] LABS: Lymphocytes 25 %; Monocytes 6 %; Neutrophil (Segs) 19 %; Other Cell Type/BF 50 %
[2021-05-22 14:31] LABS: Body Fluid QC Type(s) BF1Q
[2021-05-23 12:01] LABS: Pathologist Comment/Body Fluid Reviewed
[2021-05-23 12:02] LABS: Pathologist Comment/Body Fluid Reviewed
== END 2021-05-22 14:16 ==
LOC: EN 10:33 → AC 10:33
PROVIDERS: PCP Internal Medicine; Referring Provider Internal Medicine Critical Care Medicine; Visit Provider Internal Medicine Critical Care Medicine
PROC: 0BJ08ZZ Inspection of Tracheobronchial Tree, Via Natural or Artificial Opening Endoscopic (ICD-10-PCS; CPT 31622; principal; 2021-05-22 11:45)
DX: R93.89 Abnormal findings on diagnostic imaging of other specified body structures (principal); G47.33 Obstructive sleep apnea (adult) (pediatric); E78.5 Hyperlipidemia, unspecified; F32.9 Major depressive disorder, single episode, unspecified; F41.9 Anxiety disorder, unspecified; I12.9 Hypertensive chronic kidney disease with stage 1 through stage 4 chronic kidney disease, or unspecified chronic kidney disease; E11.22 Type 2 diabetes mellitus with diabetic chronic kidney disease; N18.4 Chronic kidney disease, stage 4 (severe); I25.10 Atherosclerotic heart disease of native coronary artery without angina pectoris; I25.2 Old myocardial infarction; I48.0 Paroxysmal atrial fibrillation; G25.81 Restless legs syndrome; I71.2 Thoracic aortic aneurysm, without rupture; I73.9 Peripheral vascular disease, unspecified; J44.9 Chronic obstructive pulmonary disease, unspecified; K21.9 Gastro-esophageal reflux disease without esophagitis; M19.90 Unspecified osteoarthritis, unspecified site; Z91.19 Patient's noncompliance with other medical treatment and regimen; Z86.73 Personal history of transient ischemic attack (TIA), and cerebral infarction without residual deficits; Z79.4 Long term (current) use of insulin; Z79.01 Long term (current) use of anticoagulants; Z79.82 Long term (current) use of aspirin; Z79.899 Other long term (current) drug therapy; Z87.891 Personal history of nicotine dependence
CPT/HCPCS: 31624; 36415; 82962; 87015; 87070; 87077; 87116; 87186; 87205; 87206; 87252; 87426; 88108; 88305; 88312; 88313; 89050; C9803; J7120; J2405

== ENCOUNTER 2021-05-31 14:16 | Inpatient (IN) | payer MEDICARE, OTHER, SELFPAY ==
[2021-05-31] VITALS (8 sets, daily range): BP systolic 98–133; BP diastolic 58–89; PULSE 67–76; RESP 20–28; TEMP 36.8–37; O2SAT 91–100; BMI 25.1; BMI 23.7
--- NOTE | 2021-05-31 16:05 | EKG12_ITS ---
Test Reason : Blood Pressure : / mmHG Vent. Rate : 067 BPM Atrial Rate : 067 BPM P-R Int : 152 ms QRS Dur : 084 ms QT Int : 428 ms P-R-T Axes : 038 -04 076 degrees QTc Int : 452 ms Sinus rhythm with occasional Premature ventricular complexes and Premature atrial complexes Nonspecific ST and T wave abnormality Abnormal ECG Confirmed by CARY MERAZ, RYLAN ([id number]), clinical editor GENARO ISRAEL ([id number]) on 06/02/2021 10:38:17 AM Referred By: SYL/KENJI Confirmed By:RYLAN TOWNSEND MD
--- NOTE | 2021-05-31 16:05 | RAD_ITS ---
STUDY: X-RAY CHEST REASON FOR EXAM: Male, 76 years old. dyspnea INCREASED SOB AND INTERMITTANT LOW PULSE OX. COUGHING. IRREGULAR GLUCOSE TEST AT HOME. RECENT BRONCHOSCOPY. 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 There is no pneumothorax, cardiac megaly or pleural effusions. Right hemidiaphragm is chronically elevated. RAD/Chest 1 View (Portable) IMPRESSION: Stable extensive bilateral pulmonary opacities, refer to CT for more definitive confirmation. Electronically Signed: Saniya Pickering MD at 17:48 EDT Tel , Service support ,
--- NOTE | 2021-05-31 16:07 | ED.VIS.DYS ---
HPI History of Present Illness Chief Complaint: Shortness of Breath Detail of Chief Complaint: Shortness of breath that he has had since March. Informant: patient Narrative Narrative: Patient presents to the emergency department complaint of shortness of breath since March. Patient complains of exertional dyspnea. Patient noted to have staph infection in the washings and was started on Augmentin. Patient states that they bought a pulse oximeter at home and has been running in the 80s and he does not wear home O2. He denies any chest pain. Patient has history of chronic kidney disease, A. fib, prior stroke, COPD, and diabetes. Patient on rivaroxaban. Patient had negative Covid test on May 21. He is not vaccinated against COVID-19. [facility] Medical History (Updated 05/31/21 @ 18:[address] Lindsey Munoz, ) Alcohol use Anxiety Arthritis Back pain BiPAP (biphasic positive airway pressure) dependence Cardiology follow-up encounter Chest pain CKD (chronic kidney disease) stage 3, GFR 30-59 ml/min CKD (chronic kidney disease) stage 4, GFR 15-29 ml/min COPD (chronic obstructive pulmonary disease) Coronary artery disease CPAP (continuous positive airway pressure) dependence CVA (cerebral vascular accident) Depression Diabetes Dietary restriction DM2 (diabetes mellitus, type 2) Emphysema lung Essential (primary) hypertension Former smoker Gastric reflux History of echocardiogram History of heart attack History of irregular heartbeat History of non-ST elevation myocardial infarction (NSTEMI) (04/06/21) History of pain when walking History of stress test Hyperlipemia Insulin dependent diabetes mellitus Kidney disease Kidney disease, chronic, stage II (GFR 60-89 ml/min) Kidney stone on right side Leg cramps Loss of hearing Low iron Migraines Myocardial infarct Nicotine dependence, cigarettes, in remission RENEE (obstructive sleep apnea) PAD (peripheral artery disease) Paroxysmal atrial fibrillation Pulmonary nodule Renal artery stenosis Restless legs Shortness of breath on exertion Syncope Thoracic aortic aneurysm TIA (transient ischemic attack) (~09/13/09) Vitamin B12 deficiency Wears glasses Home Medications amlodipine 2.5 mg PO DAILY 05/15/17 [History Last Taken 07/15/20] aspirin 81 mg PO DAILY@0800 05/15/17 [History Last Taken 07/15/20] famotidine 20 mg PO BID 05/15/17 [History Last Taken 07/15/20] propranolol 80 mg PO BID 05/15/17 [History Last Taken 07/15/20] acetaminophen 650 mg PO Q4H PRN PRN tab 05/17/17 [Rx Last Taken Unknown] rivaroxaban 15 mg PO DAILY 05/22/19 [History Last Taken 04/05/21] Lantus U-100 Insulin 18 unit SUBCUT QHS 03/28/21 [History Last Taken 04/04/21] losartan 25 mg PO DAILY 03/28/21 [History Last Taken Unknown] omeprazole 40 mg PO DAILY 03/28/21 [History Last Taken Unknown] Brilinta 90 mg PO BID 04/06/21 [History Last Taken 04/05/21] amiodarone 200 mg PO DAILY #100 tab 04/08/21 [Rx Last Taken Unknown] atorvastatin 40 mg PO QHS #90 tab 04/08/21 [Rx Last Taken Unknown] albuterol sulfate 90 mcg/actuation aerosol inhaler 2 puff INHALATION Q6H PRN #8.5 g 05/09/21 [Rx Last Taken Unknown] insulin lispro [Humalog U-100 Insulin] 25 unit SUBCUT TID 05/15/21 [History Last Taken Unknown] amoxicillin 500 mg-potassium clavulanate 125 mg tablet 1 tab PO Q12H #20 tab 05/26/21 [Rx Last Taken Unknown] Allergy/AdvReac Type Severity Reaction Status Date / Time hydromorphone [From Dilaudid] Allergy Severe Unknown Verified 05/22/21 11:20 melon AdvReac Severe Unknown Verified 05/22/21 11:20 promethazine [From Phenergan] AdvReac Severe Unknown Verified 05/22/21 11:20 Opioids - Morphine Analogues AdvReac Vomiting Verified 05/22/21 11:20 Family History Father Cirrhosis Mother Cancer lung Surgical History (Updated 05/15/21 @ 11:54 by Bonnie Stapleton) History of cardiac catheterization (04/07/21) History of carpal tunnel release History of coronary artery stent placement (08/28/20) History of heart artery stent History of inguinal hernia repair Hx of lithotripsy Social History household members: spouse and children housing: house Smoking Status: Former smoker Tobacco: How many years used: 30 how long ago did patient quit smokin, 2ppd second hand exposure: Yes substance use type: does not use ROS ROS ED Constitutional Constitutional ED: Reports systems reviewed and no addt'l complaints, except as documented; Denies body ache(s), change in weight or chills Eyes Eyes: Denies acute decrease in peripheral vision, change in vision, double vision or loss of vision ENT ENT ED: Reports none; Denies ear pain, lip swelling, loss taste/smell, neck pain, otalgia or sore throat Cardiovascular Cardiovascular: Reports none; Denies abdominal pain, chest pain with activity, leg edema, lightheadedness, palpitations, rapid heart rate or syncope Respiratory/Chest Respiratory/Chest: Reports none, cough, dyspnea and dyspnea on exertion; Denies change in mental status, dry cough, hemoptysis, shortness of breath at rest or shortness of breath with exertion Gastrointestinal Gastrointestinal: Reports none; Denies abdominal pain, change in stool character, diarrhea, hematemesis, hematochezia, melena, rectal bleeding or vomiting Genitourinary Genitourinary ED: Reports none; Denies abdominal discomfort, anuria, dysuria, genital pain or polyuria Musculoskeletal Musculoskeletal: Reports none; Denies arthralgias, back pain, difficulty walking, extremity pain, muscle weakness or myalgias Integumentary Reports none; Denies abscess or rash Neurologic Neurologic: Reports none; Denies abnormal gait, confusion, focal weakness, frequent falls, headache(s), loss of vision, numbness, paresthesias, radicular pain, vertigo or weakness Psychiatric Psychiatric: Reports systems reviewed and no addt'l complaints, except as documented and none; Denies behavioral changes, confusion, difficulty concentrating, hallucinations, suicidal ideation, tactile hallucinations or visual hallucinations Endocrine Endocrinology: Denies none, cold intolerance, excessive sweating, fatigue or heat intolerance Hematologic/Lymphatic Hematologic/Lymphatic: Reports none; Denies anemia, easy bleeding or easy bruising Allergic/Immunologic Allergic/Immunologic ED: Denies as per HPI, none, lip swelling, mouth swelling, throat swelling, tongue swelling or hives EXAM Physical Exam Const Vital Signs: 05/31/21 14:17 05/31/21 15:16 05/31/21 16:25 Temperature 98.6 F Temperature Source Oral Pulse Rate 67 75 Respiratory Rate 20 H 26 H Respiratory Effort Short of Breath Respiratory Depth Normal Respiratory Pattern Tachypnea Blood Pressure 110/89 H 119/60 Blood Pressure Mean 96 79 Pulse Ox 96 93 Oxygen Delivery Method Room Air Room Air Nasal Cannula Oxygen Flow Rate (L/min) 2 05/31/21 16:30 05/31/21 18:00 Temperature Temperature Source Pulse Rate 72 69 Respiratory Rate 25 H 26 H Respiratory Effort Respiratory Depth Respiratory Pattern Blood Pressure 133/63 H 111/80 Blood Pressure Mean 86 90 Pulse Ox 97 98 Oxygen Delivery Method Nasal Cannula Nasal Cannula Oxygen Flow Rate (L/min) 2 2 Positive well nourished and well developed General Appearance ED: well developed and NAD HEENT Reports TM's clear and moist mucous membranes normocephalic and atraumatic; Negative for trauma or tenderness Tympanic Membrane ED: Yes TM's clear Eyes PERRL and EOMs intact bilaterally General Eye ED: Negative for pale conjunctiva or scleral icterus Neck no lymphadenopathy, supple and no JVD General: Negative for tenderness Chest Wall inspection of chest normal and palpation of chest normal Chest: Negative for tenderness Resp normal respiratory effort and clear to auscultation bilaterally Effort and Inspection: Negative for respiratory distress or pain with movement Auscultation: Negative for rhonchi, wheezes or diminished lung sounds Cardio regular rate, regular rhythm, S1 normal heart sound, S2 normal heart sound and no murmurs Peripheral Pulses: pulses 2+ throughout GI normal to inspection, nondistended, normoactive bowel sounds, soft to palpation, non-tender, non-distended and no masses Back/Spine no CVA tenderness and no thoracic nor lumbar tenderness Extremity normal to inspection General Extremety ED: Negative for edema General Extremity: Negative for edema Neuro oriented x3, CN's II-XII intact bilaterally, no sensory deficits noted and gait normal Sensorium / Orientation: awake, alert, oriented to person, oriented to place and oriented to time Motor Exam: strength 5/5 throughout and strength abnormal Psych mental status grossly normal Skin no rashes or lesions noted and no wounds MDM MDM MDM Narrative Medical decision making narrative: Discussed results with patient as well as Dr. Andre who is on for pulmonology. Also discussed case with hospitalist. Initially we will send patient home if we could set him up with outpatient O2 however I was told we would not be able to be in the patient does not have COVID-19. Patient was hypoxic with ambulation and would drop his pulse ox into the mid 80s. Patient will be admitted as an observation to see if he qualifies for home oxygen. Lab Data Attestation: I reviewed the patient's lab results. Labs: Laboratory Results - last 24 hr 05/31/21 05/31/21 05/31/21 16:25 16:25 16:25 WBC 9.3 RBC 3.22 L Hgb 8.2 L Hct 27.4 L MCV 85.1 MCH 25.5 L MCHC 29.9 L RDW Std Deviation 54.1 H RDW Coeff of Rosa 17.4 H Plt Count 314 MPV 9.5 Immature Gran % (Auto) 0.500 Neut % (Auto) 82.0 H Lymph % (Auto) 7.9 L Vernon % (Auto) 8.2 Eos % (Auto) 1.0 Baso % (Auto) 0.4 Absolute Neuts (auto) 7.6 Absolute Lymphs (auto) 0.74 L Nucleated RBC % 0 Sodium 137 Potassium 4.6 Chloride 105 Carbon Dioxide 23.0 Anion Gap 9 BUN 30 H Creatinine 2.11 H Estim Creat Clear Calc 29.79 Est GFR (MDRD) Af Amer 39 L Est GFR (MDRD) Non-Af 32 L BUN/Creatinine Ratio 14.2 Glucose 266 H Calcium 9.3 Troponin I High Sens 20 B-Natriuretic Peptide 702.5 H Radiography Chest X-Ray - ED: 1 View Diagnostic Testing: Radiology Impression Chest X-Ray 05/31/21 16:05 IMPRESSION: Stable extensive bilateral pulmonary opacities, refer to CT for more definitive confirmation. Electronically Signed: Saniya Pickering MD at 17:48 EDT Tel , Service support , 1 view chest x-ray obtained interpreted by myself as increased markings bilaterally. Radiology was in agreement. I suspect this is likely pulmonary fibrosis. EKG Initial EKG: Attestation: I personally reviewed and interpreted this EKG as follows: Comments: Sinus rhythm with a ventricular rate of 67 bpm with occasional PVCs and nonspecific ST changes. Discharge Plan Dx/Rx/DC Orders Clinical Impression: Dyspnea, Exercise hypoxemia Disposition Disposition: Acute Care [facility]
[2021-05-31 16:36] LABS: Absolute Lymphocyte Count 0.74 X10^3/uL (0.83-4.51); Absolute Neutrophil Count 7.6 X10^3/uL (2.0-7.7); Basophil# 0.04 X10^3/uL; Basophil% 0.4 % (0-1); Eosinophil# 0.09 X10^3/uL; Hematocrit 27.4 % (40-54); Hemoglobin 8.2 g/dL (13.0-16.5); Lymphocyte # 0.74 X10^3/ul (0.83-4.51); Lymphocyte % 7.9 % (19-41); Mean Corp Hgb Conc 29.9 g/dL (32-36); Mean Corpuscular Hgb 25.5 pg (27.0-32.0); Mean Corpuscular Volume 85.1 fL (80-94); Mean Platelet Vol. 9.5 fl (6.2-12.0); Monocyte# 0.76 X10^3/uL; Monocyte% 8.2 % (0-10); NRBC Flagged by Analyzer 0 % (0-5); Neutrophil # 7.64 X10^3/uL (2.7-7.7); Platelet Count 314 K/mm3 (150-450); RBC Distribution Width CV 17.4 % (11.6-14.6); RBC Distribution Width SD 54.1 fl (35.1-43.9); Red Blood Count 3.22 M/mm3 (4.6-6.2); White Blood Count 9.3 K/mm3 (4.4-11.0)
[2021-05-31 16:59] LABS: Anion Gap 9 (5-15); BUN 30 mg/dL (7-18); BUN/Creat Ratio 14.2 RATIO (10-20); Calcium,Total 9.3 mg/dL (8.5-10.1); Chloride 105 mmol/L (98-107); Creatinine, Serum 2.11 mg/dL (0.70-1.30); EST Glomerular Filtration Rate 32 mL/min (>60); Est Glom Filt Rate - Afr Amer 39 mL/min (>60); Estimated Creatinine Clearance 29.79 ml/min; Glucose 266 mg/dL (74-106); Potassium 4.6 mmol/L (3.5-5.1); Sodium Level 137 mmol/L (136-145); Troponin-I HS 20 pg/mL (3.0-78.0)
[2021-05-31 17:02] LABS: BNP,B-Type NATRIURETIC PEPTIDE 702.5 pg/mL (0-100)
--- NOTE | 2021-05-31 19:44 | HP.PCM_ITS ---
HPI - General General Date of Admission: 05/31/21 HPI Narrative SAL SPENCER, is a 76 M with a history of interstitial lung disease and who presents with worsening shortness of breath over and above his baseline. Noted to have hypoxia at home with oxygen saturations in the 80s. In the emergency room he was saturating adequately on room air at rest however with activity dipped into the 80s. He denies any fever or chills. Denies any chest pain and no significant cough. Denies any lower extremity swelling, orthopnea or paroxysmal nocturnal dyspnea. [facility] Medical History (Updated 05/31/21 @ 19:[address] Gerardo Cardenas MD) Alcohol use Anxiety Arthritis Back pain BiPAP (biphasic positive airway pressure) dependence Cardiology follow-up encounter Chest pain CKD (chronic kidney disease) stage 3, GFR 30-59 ml/min CKD (chronic kidney disease) stage 4, GFR 15-29 ml/min COPD (chronic obstructive pulmonary disease) Coronary artery disease CPAP (continuous positive airway pressure) dependence CVA (cerebral vascular accident) Depression Diabetes Dietary restriction DM2 (diabetes mellitus, type 2) Emphysema lung Essential (primary) hypertension Former smoker Gastric reflux History of echocardiogram History of heart attack History of irregular heartbeat History of non-ST elevation myocardial infarction (NSTEMI) (04/06/21) History of pain when walking History of stress test Hyperlipemia Insulin dependent diabetes mellitus Kidney disease Kidney disease, chronic, stage II (GFR 60-89 ml/min) Kidney stone on right side Leg cramps Loss of hearing Low iron Migraines Myocardial infarct Nicotine dependence, cigarettes, in remission RENEE (obstructive sleep apnea) PAD (peripheral artery disease) Paroxysmal atrial fibrillation Pulmonary nodule Renal artery stenosis Restless legs Shortness of breath on exertion Syncope Thoracic aortic aneurysm TIA (transient ischemic attack) (~09/13/09) Vitamin B12 deficiency Wears glasses Home Medications amlodipine 2.5 mg PO DAILY 05/15/17 [History Last Taken 07/15/20] aspirin 81 mg PO DAILY@0800 05/15/17 [History Last Taken 07/15/20] famotidine 20 mg PO BID 05/15/17 [History Last Taken 07/15/20] propranolol 80 mg PO BID 05/15/17 [History Last Taken 07/15/20] acetaminophen 650 mg PO Q4H PRN PRN tab 09/04/17 [Rx Last Taken Unknown] rivaroxaban 15 mg PO DAILY 05/22/19 [History Last Taken 04/05/21] Lantus U-100 Insulin 18 unit SUBCUT QHS 03/28/21 [History Last Taken 04/04/21] losartan 25 mg PO DAILY 03/28/21 [History Last Taken Unknown] omeprazole 40 mg PO DAILY 03/28/21 [History Last Taken Unknown] Brilinta 90 mg PO BID 04/06/21 [History Last Taken 04/05/21] amiodarone 200 mg PO DAILY #100 tab 04/08/21 [Rx Last Taken Unknown] atorvastatin 40 mg PO QHS #90 tab 04/08/21 [Rx Last Taken Unknown] albuterol sulfate 90 mcg/actuation aerosol inhaler 2 puff INHALATION Q6H PRN #8.5 g 05/09/21 [Rx Last Taken Unknown] insulin lispro [Humalog U-100 Insulin] 25 unit SUBCUT TID 05/15/21 [History Last Taken Unknown] amoxicillin 500 mg-potassium clavulanate 125 mg tablet 1 tab PO Q12H #20 tab 05/26/21 [Rx Last Taken Unknown] Allergy/AdvReac Type Severity Reaction Status Date / Time hydromorphone [From Dilaudid] Allergy Severe Unknown Verified 05/22/21 11:20 melon AdvReac Severe Unknown Verified 05/22/21 11:20 promethazine [From Phenergan] AdvReac Severe Unknown Verified 05/22/21 11:20 Opioids - Morphine Analogues AdvReac Vomiting Verified 05/22/21 11:20 Family History Father Cirrhosis Mother Cancer lung Surgical History (Updated 05/15/21 @ 11:54 by Bonnie Stapleton) History of cardiac catheterization (04/07/21) History of carpal tunnel release History of coronary artery stent placement (08/28/20) History of heart artery stent History of inguinal hernia repair Hx of lithotripsy Social History household members: spouse and children housing: house Smoking Status: Former smoker Tobacco: How many years used: 30 how long ago did patient quit smokin, 2ppd second hand exposure: Yes substance use type: does not use ROS ROS Narrative Denies any chest pain, abdominal pain nausea vomiting. No lower extremity swelling, orthopnea or paroxysmal nocturnal dyspnea. All other systems reviewed and essentially negative. Vital Signs Vital Signs Vital Signs: 05/31/21 14:17 05/31/21 15:16 05/31/21 16:25 Temperature 37.0 C Temperature Source Oral Pulse Rate 67 75 Respiratory Rate 20 H 26 H Respiratory Effort Short of Breath Respiratory Depth Normal Respiratory Pattern Tachypnea Blood Pressure 110/89 H 119/60 Blood Pressure Mean 96 79 Pulse Ox 96 93 Oxygen Delivery Method Room Air Room Air Nasal Cannula Oxygen Flow Rate (L/min) 2 05/31/21 16:30 05/31/21 18:00 05/31/21 18:32 Temperature 36.9 C Temperature Source Temporal Pulse Rate 72 69 70 Respiratory Rate 25 H 26 H 28 H Respiratory Effort Respiratory Depth Respiratory Pattern Blood Pressure 133/63 H 111/80 111/80 Blood Pressure Mean 86 90 90 Pulse Ox 97 98 96 Oxygen Delivery Method Nasal Cannula Nasal Cannula Nasal Cannula Oxygen Flow Rate (L/min) 2 2 2 Weight Weight: 79.379 kg Body Mass Index (BMI) 25.1 Physical Exam Narrative General. Elderly man, chronically ill-appearing, mildly dyspneic at rest. HEENT. Oral mucosa moist, normocephalic. Neck. Supple, questionable jugular venous distention Heart. First and second heart sounds heard, slightly distant. Lungs. Bronchial breath sounds in both mid and lower zones bilaterally but more on the right, fine crackles and questionable pleural rubs noted as well, right more than the left. Abdomen. Moves with respiration. 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 Conscious and alert. Oriented x3. Cranial nerves II through XII grossly intact. Extremities. No no lower extremity edema. Results Lab / Micro Data Result Diagrams: 05/31/21 16:25 05/31/21 16:25 Labs: Laboratory Results - last 24 hr 05/31/21 16:25: WBC 9.3, RBC 3.22 L, Hgb 8.2 L, Hct 27.4 L, MCV 85.1, MCH 25.5 L , MCHC 29.9 L, RDW Std Deviation 54.1 H, RDW Coeff of Rosa 17.4 H, Plt Count 314, MPV 9.5, Immature Gran % (Auto) 0.500, Neut % (Auto) 82.0 H, Lymph % (Auto) 7.9 L, Brooke % (Auto) 8.2, Eos % (Auto) 1.0, Baso % (Auto) 0.4, Absolute Neuts (auto) 7.6, Absolute Lymphs (auto) 0.74 L, Nucleated RBC % 0 05/31/21 16:25: Sodium 137, Potassium 4.6, Chloride 105, Carbon Dioxide 23.0, Anion Gap 9, BUN 30 H, Creatinine 2.11 H, Estim Creat Clear Calc 29.79, Est GFR (MDRD) Af Amer 39 L, Est GFR (MDRD) Non-Af 32 L, BUN/Creatinine Ratio 14.2, Glucose 266 H, Calcium 9.3, Troponin I High Sens 20 05/31/21 16:25: B-Natriuretic Peptide 702.5 H Radiology Impression Chest X-Ray 05/31/21 16:05 IMPRESSION: Stable extensive bilateral pulmonary opacities, refer to CT for more definitive confirmation. Electronically Signed: Saniya Pickering MD at 17:48 EDT Tel , Service support , Assessment & Plan Assessment/Plan (1) Interstitial lung disease: PLAN: Known interstitial lung disease. Suspect patient may be experiencing an exacerbation of his interstitial lung disease/early pulmonary fibrosis. We will consult pulmonology. We will do an echocardiogram to rule out development of pulmonary hypertension as a complication and contributor to his worsening symptomatology. 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 Something we may need to look into. (2) Acute on chronic respiratory failure with hypoxia: PLAN: Secondary to #1 above. I believe patient will require oxygen to go home with to be used especially with activity. Nursing to kindly evaluate for home-going oxygen (3) Lower respiratory tract infection: PLAN: Recently underwent bronchoscopy with bronchial washings positive for MSSA. Continue with Augmentin. (4) Paroxysmal atrial fibrillation: PLAN: Continue current medications. Consider cardiology consultation to evaluate benefit/risks of continued amiodarone use if this is indeed related to patient's worsening lung disease. (5) COPD (chronic obstructive pulmonary disease): PLAN: Does not appear to be in exacerbation. Charges/Coding Visit Charges Inpatient E&M: 12136 Init Hosp L3
--- NOTE | 2021-05-31 19:52 | ECHOD_ITS ---
Reason For Study: PHTN Procedure This was a 2D Doppler, Color Flow transthoracic echocardiogram. Exam performed portable in patient room. Left Ventricle Normal LV size. Moderate concentric left ventricular hypertrophy. Left ventricular systolic function is normal. The estimated ejection fraction is 60 %. Stage 2 diastolic dysfunction. No regional wall motion abnormalities noted. Right Ventricle Normal RV size. Normal systolic function. Atria Normal left atrium. Normal right atrium. Mitral Valve Normal mitral valve. Tricuspid Valve Normal tricuspid valve. Mild (1+) tricuspid valve insufficiency. Pulmonary artery systolic pressure is 48 mmHg. Aortic Valve Trisinus/trileaflet aortic valve. Pulmonic Valve Normal pulmonic valve. Great Vessels Mild to moderately dilated aortic root. The pulmonary artery is normal size. Normal inferior vena cava. Pericardium/Pleural No pericardial effusion. MMode/2D Measurements & Calculations LVIDd: 4.5 cm IVSd: 1.7 cm Ao root diam: 3.9 cm LVIDs: 2.7 cm LVPWd: 1.3 cm LA dimension: 3.6 cm FS: 40.4 % LAV(MOD-bp): 49.8 ml LA A4 area: 20.2 cm2 RA A4 area: 13.7 cm2 LAV(MOD-bp) Indexed: 25.9 ml/m2 LAV(MOD-sp2): 33.7 ml LAV(MOD-sp4): 59.6 ml Time Measurements MV dec time: 0.22 sec Doppler Measurements & Calculations MV E max hal: 120.4 cm/sec Lat Peak E' Hal: 11.4 cm/sec Med Peak E' Hal: 4.6 cm/sec MV A max hal: 72.9 cm/sec E/E' lat: 10.5 E/E' med: 25.9 MV E/A: 1.7 MV V2 max: 129.0 cm/sec MV P1/2t max hal: 131.9 cm/sec Ao V2 max: 100.6 cm/sec MV max P.7 mmHg MV P1/2t: 88.5 msec Ao max P.0 mmHg MV V2 mean: 65.1 cm/sec MV dec slope: 436.8 cm/sec2 MV mean P.0 mmHg MVA(P1/2t): 2.5 cm2 MV V2 VTI: 37.3 cm LV V1 max: 84.7 cm/sec PA V2 max: 81.9 cm/sec TR max hal: 328.0 cm/sec LV V1 max P.9 mmHg TR max P.0 mmHg ECHO/Echo Complete Interpretation Summary Normal LV size. Left ventricular systolic function is normal. The estimated ejection fraction is 60 %. Stage 2 diastolic dysfunction. Pulmonary artery systolic pressure is 48 mmHg. Moderate concentric left ventricular hypertrophy. Ordering Physician: Gerardo Cardenas Referring Physician: Jonny Serrato Performed By: Gregory Reyes RCS
--- NOTE | 2021-05-31 19:52 | EKG12_ITS ---
Test Reason : PULM. HYPERTENSION Blood Pressure : / mmHG Vent. Rate : 070 BPM Atrial Rate : 070 BPM P-R Int : 172 ms QRS Dur : 088 ms QT Int : 428 ms P-R-T Axes : 043 -01 059 degrees QTc Int : 462 ms Normal sinus rhythm Nonspecific ST and T wave abnormality Prolonged QT Abnormal ECG When compared with ECG of 31-MAY-2021 16:28, MANUAL COMPARISON REQUIRED, DATA IS UNCONFIRMED Confirmed by TERESA MERAZ, KENJI ([id number]), sports editor JORGE L QUIÑONES ([id number]) on 06/03/2021 2:16:00 PM Referred By: JERROD Confirmed By:KENJI MOORE MD
[2021-05-31] MEDS: Rivaroxaban 15 MG Tablet PO (21:59)
[2021-05-31] MEDS: Propranolol 40 MG Tablet 80 MG PO (22:00)
[2021-05-31] MEDS: Famotidine 20 MG Tablet PO (22:01)
[2021-05-31] MEDS: TICAGRELOR 90 MG TABLET PO (22:01)
[2021-05-31] MEDS: Atorvastatin Calcium 40 MG Tablet PO (22:01)
[2021-05-31] MEDS: Acetaminophen 325 MG Tablet 650 MG PO (22:12)
[2021-05-31] MEDS: Amox/Clavulanate 500 MG Tablet PO (22:15)
[2021-05-31] MEDS: B 18 UNITS SC (22:16)
[2021-05-31 22:31] LABS: Bedside Glucose 243 mg/dL (70-110)
--- NOTE | 2021-05-31 23:52 | PCS.PANDOC ---
PANDEMIC DOCUMENTATION INITIATED: Date: 04/28/2021 Time: 190
[2021-06-01] VITALS (8 sets, daily range): BP systolic 104–116; BP diastolic 63–70; PULSE 66–73; RESP 16–20; TEMP 36.6–36.9; O2SAT 91–95
--- NOTE | 2021-06-01 00:04 | PCS.PANDOC ---
PANDEMIC DOCUMENTATION INITIATED: Date: 04/28/2021 Time: 1899 Pandemic documentation initiated
[2021-06-01 06:26] LABS: Absolute Lymphocyte Count 0.31 X10^3/uL (0.83-4.51); Absolute Neutrophil Count 5.7 X10^3/uL (2.0-7.7); Basophil# 0.01 X10^3/uL; Basophil% 0.2 % (0-1); Hematocrit 25.4 % (40-54); Hemoglobin 7.6 g/dL (13.0-16.5); Lymphocyte # 0.31 X10^3/ul (0.83-4.51); Lymphocyte % 5.1 % (19-41); Mean Corp Hgb Conc 29.9 g/dL (32-36); Mean Corpuscular Hgb 25.2 pg (27.0-32.0); Mean Corpuscular Volume 84.1 fL (80-94); Mean Platelet Vol. 9.6 fl (6.2-12.0); Monocyte# 0.08 X10^3/uL; Monocyte% 1.3 % (0-10); NRBC Flagged by Analyzer 0 % (0-5); Neutrophil % 93.1 % (47-70); POSITIVE DIFFERENTIAL YES; Platelet Count 290 K/mm3 (150-450); RBC Distribution Width CV 17.4 % (11.6-14.6); RBC Distribution Width SD 52.7 fl (35.1-43.9); Red Blood Count 3.02 M/mm3 (4.6-6.2); White Blood Count 6.1 K/mm3 (4.4-11.0)
[2021-06-01 06:39] LABS: Differential Indicated SCAN CRITERIA MET
[2021-06-01 06:46] LABS: Bedside Glucose 390 mg/dL (70-110)
[2021-06-01 06:59] LABS: Anisocytosis 1+; Polychromasia 1+; Target Cells RARE
[2021-06-01 07:01] LABS: ALB/GLOB Ratio 0.6 RATIO (0.9-2.4); AST(SGOT) 33 U/L (15-37); Alanine Aminotransfer ALT/SGPT 39 U/L (16-61); Albumin, Serum 2.2 g/dL (3.2-5.0); Alkaline Phosphatase 233 U/L (45-117); Anion Gap 7 (5-15); BUN 33 mg/dL (7-18); BUN/Creat Ratio 15.6 RATIO (10-20); Calcium,Total 8.5 mg/dL (8.5-10.1); Chloride 103 mmol/L (98-107); Creatinine, Serum 2.11 mg/dL (0.70-1.30); EST Glomerular Filtration Rate 32 mL/min (>60); Est Glom Filt Rate - Afr Amer 39 mL/min (>60); Estimated Creatinine Clearance 29.79 ml/min; Globulin 3.9 g/dL (2.2-4.2); Glucose 401 mg/dL (74-106); Potassium 4.8 mmol/L (3.5-5.1); Protein, Total 6.1 g/dL (6.4-8.2); Sodium Level 133 mmol/L (136-145)
[2021-06-01] MEDS: Furosemide 40 MG/4 ML Vial IV (08:03)
[2021-06-01] MEDS: Insulin Lispro 100 UNIT/ML INSULN.PEN 25 UNIT SC ×3 (08:07→17:03)
[2021-06-01] MEDS: Insulin Lispro 100 UNIT/ML INSULN.PEN SC ×4 (08:09→22:51)
[2021-06-01] MEDS: TICAGRELOR 90 MG TABLET PO ×2 (10:33→22:48)
[2021-06-01] MEDS: Amox/Clavulanate 500 MG Tablet PO ×2 (10:33→22:48)
[2021-06-01] MEDS: Aspirin 81 MG TAB.CHEW PO (10:33)
[2021-06-01] MEDS: Losartan Potassium 25 MG Tablet PO (10:34)
[2021-06-01] MEDS: Amiodarone 200 MG Tablet PO (10:36)
[2021-06-01] MEDS: amLODIPine 2.5 MG Tablet PO (10:37)
[2021-06-01] MEDS: Propranolol 40 MG Tablet 80 MG PO ×2 (10:37→22:49)
[2021-06-01] MEDS: Pantoprazole Sodium 40 MG Tablet PO (10:45)
[2021-06-01 13:20] LABS: Bedside Glucose 356 mg/dL (70-110)
--- NOTE | 2021-06-01 13:21 | CON.PCM.CC_ITS ---
Assessment & Plan Assessment/Plan (1) Exercise hypoxemia: (2) Interstitial lung disease: (3) Paroxysmal atrial fibrillation: (4) RENEE (obstructive sleep apnea): PLAN: RECOMMENDATIONS: 1. Agree with diuresis as tolerated 2. Walking oximetry prior to discharge 3. Okay to continue amiodarone for now 4. Could consider an echocardiogram when euvolemic 5. Complete course of Augmentin as prescribed 6. Right heart catheterization may be indicated as an outpatient IMPRESSIONS: 1. Exertional hypoxemia in the setting of progressive lung disease Patient recently had a walking oximetry in April showing no significant desaturation with exertion. Patient does have an elevated BNP and recent pneumonia. Some concern that elevated pulmonary artery pressures may be secondary to exertional hypoxemia. Patient does have an elevated BNP. Agree with diuresis, but antibiotic should be continued. Patient ideally would have a right heart catheterization, but defer to primary service and outpatient work- up. Dr. Morales is taking over tomorrow so he may have some more insight. Given patient is on anticoagulation chronically, PE is less likely. Patient is not having significant leukocytosis to suggest selection of MRSA from Augmentin therapy. 2. Paroxysmal A. fib/PAD/renal artery stenosis/CKD/advanced age/diabetes mellitus Complicates care, management, recovery and prognosis. Rate is controlled at this time. Patient is on anticoagulation. Patient would likely benefit from better control of glucose. HPI Consult Data Date of Consult: 06/01/21 HPI Narrative HPI Narrative: SAL SPENCER is a 76 M, with past medical history listed below , who presents with [facility] on 05/31/2021 secondary to progressive shortness of breath since March. Patient does follow with Dr. Morales as an outpatient has had multiple interventions including a recent bronchoscopy showing a staph infection in the washings. Patient was placed on Augmentin started to notice desaturations into the 80s with exertion, especially up the stairs. Patient had denied any chest pain, nominal pain, nausea or vomiting. Patient is anticoagulated at baseline. Patient has had a negative Covid test on May 21, but is not vaccinated against COVID-19. In the ER, patient was afebrile, but slightly tachypneic at 26 breaths/min. Patient's blood pressure was doing well and saturations were 96% on room air. However, with ambulation, patient desaturated into the mid 80s. Laboratory work-up showed a white blood cell count of 9.3, hemoglobin of 8.2 and creatinine of 2.11. Patient's BNP was elevated at 702.5. Chest x-ray showed stable bilateral pulmonary opacities and EKG showed sinus rhythm with nonspecific T wave changes. Family was very reluctant to go home with supplemental oxygen, so patient was admitted to the hospital for further evaluation. Since being admitted, patient feels that he is doing better. Patient is currently on nasal cannula oxygen and tolerating this well. Patient denies any current chest pain, nominal pain, nausea or vomiting. Patient has not had any cyanosis or syncope. Patient does report that he has significantly worse exercise tolerance. Patient states he can only make it up approximately one half of a flight of steps whereas 3 weeks ago he can make it to the top. Patient did not reported any increased salt intake or recent travel. Patient has been compliant with his anticoagulation. Review of systems otherwise negative from a constitutional, HEENT, respiratory, cardiovascular, GI, genitourinary, musculoskeletal, skin, neurologic, psychiatric and hematologic system unless stated above. [facility] Medical History Alcohol use Anxiety Arthritis Back pain BiPAP (biphasic positive airway pressure) dependence Cardiology follow-up encounter Chest pain CKD (chronic kidney disease) stage 3, GFR 30-59 ml/min CKD (chronic kidney disease) stage 4, GFR 15-29 ml/min COPD (chronic obstructive pulmonary disease) Coronary artery disease CPAP (continuous positive airway pressure) dependence CVA (cerebral vascular accident) Depression Diabetes Dietary restriction DM2 (diabetes mellitus, type 2) Emphysema lung Essential (primary) hypertension Former smoker Gastric reflux History of echocardiogram History of heart attack History of irregular heartbeat History of non-ST elevation myocardial infarction (NSTEMI) (04/06/21) History of pain when walking History of stress test Hyperlipemia Insulin dependent diabetes mellitus Kidney disease Kidney disease, chronic, stage II (GFR 60-89 ml/min) Kidney stone on right side Leg cramps Loss of hearing Low iron Migraines Myocardial infarct Nicotine dependence, cigarettes, in remission RENEE (obstructive sleep apnea) PAD (peripheral artery disease) Paroxysmal atrial fibrillation Pulmonary nodule Renal artery stenosis Restless legs Shortness of breath on exertion Syncope Thoracic aortic aneurysm TIA (transient ischemic attack) (~09/13/09) Vitamin B12 deficiency Wears glasses Home Medications amlodipine 2.5 mg PO DAILY 05/15/17 [History Last Taken 05/31/21] aspirin 81 mg PO DAILY@0800 05/15/17 [History Last Taken 05/31/21] famotidine 20 mg PO BID 05/15/17 [History Last Taken 05/31/21] propranolol 80 mg PO BID 05/15/17 [History Last Taken 05/31/21] acetaminophen 650 mg PO Q4H PRN PRN tab 05/17/17 [Rx Last Taken Unknown] rivaroxaban 15 mg PO DINNER 05/22/19 [History Last Taken 05/30/21] Lantus U-100 Insulin 18 unit SUBCUT QHS 03/28/21 [History Last Taken 05/30/21] losartan 25 mg PO DAILY 03/28/21 [History Last Taken 05/31/21] omeprazole 40 mg PO DAILY 03/28/21 [History Last Taken 05/31/21] Brilinta 90 mg PO BID 04/06/21 [History Last Taken 05/31/21] amiodarone 200 mg PO DAILY #100 tab 04/08/21 [Rx Last Taken 05/31/21] atorvastatin 40 mg PO QHS #90 tab 04/08/21 [Rx Last Taken 05/30/21] albuterol sulfate 90 mcg/actuation aerosol inhaler 2 puff INHALATION Q6H PRN #8.5 g 05/09/21 [Rx Last Taken 05/30/21] insulin lispro [Humalog U-100 Insulin] 25 unit SUBCUT TIDCM 05/15/21 [History Last Taken 05/31/21] amoxicillin 500 mg-potassium clavulanate 125 mg tablet 1 tab PO Q12H #20 tab 05/26/21 [Rx Last Taken 05/31/21] Allergy/AdvReac Type Severity Reaction Status Date / Time hydromorphone [From Dilaudid] Allergy Severe Unknown Verified 05/22/21 11:20 melon AdvReac Severe Unknown Verified 05/22/21 11:20 promethazine [From Phenergan] AdvReac Severe Unknown Verified 05/22/21 11:20 Opioids - Morphine Analogues AdvReac Vomiting Verified 05/22/21 11:20 Family History Father Cirrhosis Mother Cancer lung Surgical History History of cardiac catheterization (04/07/21) History of carpal tunnel release History of coronary artery stent placement (08/28/20) History of heart artery stent History of inguinal hernia repair Hx of lithotripsy Social History household members: spouse and children housing: house Smoking Status: Former smoker Tobacco: How many years used: 30 how long ago did patient quit smokin, 2ppd second hand exposure: Yes substance use type: does not use ROS ROS Narrative See HPI Physical Exam Const oriented x3 and healthy appearing Orientation / Consciousness: awake HEENT normocephalic Eyes PERRL and conjunctivae normal Neck supple, no JVD and no carotid bruits Chest inspection of chest normal Chest: symmetrical chest wall rise; Negative for crepitus Resp normal respiratory effort and normal air movement Effort and Inspection: Negative for respiratory distress or actively coughing Auscultation: rales bilateral base Cardio regular rate, regular rhythm, S1 normal heart sound, S2 normal heart sound, no murmurs, no rub and no gallops GI normal to inspection, nondistended, normoactive bowel sounds Extremity normal to inspection and no clubbing, cyanosis or edema Skin no rashes or lesions noted, no wounds and skin turgor normal Neuro oriented x3, CN's II-XII intact bilaterally, moves all extremities and no focal motor deficits Psych mental status grossly normal Lab / Micro Data Result Diagrams: 06/01/21 06:10 06/01/21 06:10 Labs: Laboratory Results - last 24 hr 05/31/21 16:25: WBC 9.3, RBC 3.22 L, Hgb 8.2 L, Hct 27.4 L, MCV 85.1, MCH 25.5 L , MCHC 29.9 L, RDW Std Deviation 54.1 H, RDW Coeff of Rosa 17.4 H, Plt Count 314, MPV 9.5, Immature Gran % (Auto) 0.500, Neut % (Auto) 82.0 H, Lymph % (Auto) 7.9 L, Braxton % (Auto) 8.2, Eos % (Auto) 1.0, Baso % (Auto) 0.4, Absolute Neuts (auto) 7.6, Absolute Lymphs (auto) 0.74 L, Nucleated RBC % 0 05/31/21 16:25: Sodium 137, Potassium 4.6, Chloride 105, Carbon Dioxide 23.0, Anion Gap 9, BUN 30 H, Creatinine 2.11 H, Estim Creat Clear Calc 29.79, Est GFR (MDRD) Af Amer 39 L, Est GFR (MDRD) Non-Af 32 L, BUN/Creatinine Ratio 14.2, Glucose 266 H, Calcium 9.3, Troponin I High Sens 20 05/31/21 16:25: B-Natriuretic Peptide 702.5 H 05/31/21 16:25: Procalcitonin 0.20 H 05/31/21 22:16: POC Glucose 243 H 06/01/21 06:10: WBC 6.1, RBC 3.02 L, Hgb 7.6 L, Hct 25.4 L, MCV 84.1, MCH 25.2 L , MCHC 29.9 L, RDW Std Deviation 52.7 H, RDW Coeff of Rosa 17.4 H, Plt Count 290, MPV 9.6, Immature Gran % (Auto) 0.300, Neut % (Auto) 93.1 H, Lymph % (Auto) 5.1 L, Braxton % (Auto) 1.3, Eos % (Auto) 0.0, Baso % (Auto) 0.2, Absolute Neuts (auto) 5.7, Absolute Lymphs (auto) 0.31 L, Nucleated RBC % 0, Polychromasia 1+, Anisocytosis 1+, Target Cells RARE 06/01/21 06:10: Sodium 133 L, Potassium 4.8, Chloride 103, Carbon Dioxide 23.0, Anion Gap 7, BUN 33 H, Creatinine 2.11 H, Estim Creat Clear Calc 29.79, Est GFR (MDRD) Af Amer 39 L, Est GFR (MDRD) Non-Af 32 L, BUN/Creatinine Ratio 15.6, Glucose 401 H, Calcium 8.5, Total Bilirubin 1.20 H, AST 33, ALT 39, Alkaline Phosphatase 233 H, Total Protein 6.1 L, Albumin 2.2 L, Globulin 3.9, Albumin/Globulin Ratio 0.6 L 06/01/21 06:35: POC Glucose 390 H 06/01/21 12:57: POC Glucose 356 H Radiology Impression Chest X-Ray 05/31/21 16:05 IMPRESSION: Stable extensive bilateral pulmonary opacities, refer to CT for more definitive confirmation. Electronically Signed: Saniya Pickering MD at 17:48 EDT Tel , Service support , Charges/Coding Visit Charges Inpatient E&M: 43414 Init Hosp L3
--- NOTE | 2021-06-01 13:32 | PCM.PN.HOSP ---
Subjective Subjective Patient was seen and examined. Denied any new complaints. Remains on 1 to 2 L of oxygen. Objective Data Objective Data Vital Signs: Vital Signs Temp Pulse Resp BP Pulse Ox 98 F 73 20 H 115/70 92 06/01/21 12:30 06/01/21 12:30 06/01/21 12:30 06/01/21 12:30 06/01/21 12:30 Oxygen Flow Rate (L/min) 2 Oxygen Delivery Method Nasal Cannula Weight: 75 kg Body Mass Index (BMI) 23.7 Intake & Output: Intake and Output for Last 24 Hours 05/30/21 05/31/21 06/01/21 23:59 23:59 23:59 Intake Total 100 / 100 400 / 400 Output Total 750 / 750 Balance 100 / -150 -350 / -350 Lab / Micro Data Result Diagrams: 06/01/21 06:10 06/01/21 06:10 Labs: Laboratory Results - last 24 hr 05/31/21 16:25: WBC 9.3, RBC 3.22 L, Hgb 8.2 L, Hct 27.4 L, MCV 85.1, MCH 25.5 L, MCHC 29.9 L, RDW Std Deviation 54.1 H, RDW Coeff of Rosa 17.4 H, Plt Count 314, MPV 9.5, Immature Gran % (Auto) 0.500, Neut % (Auto) 82.0 H, Lymph % (Auto) 7.9 L, [place] % (Auto) 8.2, Eos % (Auto) 1.0, Baso % (Auto) 0.4, Absolute Neuts (auto) 7.6, Absolute Lymphs (auto) 0.74 L, Nucleated RBC % 0 05/31/21 16:25: Sodium 137, Potassium 4.6, Chloride 105, Carbon Dioxide 23.0, Anion Gap 9, BUN 30 H, Creatinine 2.11 H, Estim Creat Clear Calc 29.79, Est GFR (MDRD) Af Amer 39 L, Est GFR (MDRD) Non-Af 32 L, BUN/Creatinine Ratio 14.2, Glucose 266 H, Calcium 9.3, Troponin I High Sens 20 05/31/21 16:25: B-Natriuretic Peptide 702.5 H 05/31/21 16:25: Procalcitonin 0.20 H 05/31/21 22:16: POC Glucose 243 H 06/01/21 06:10: WBC 6.1, RBC 3.02 L, Hgb 7.6 L, Hct 25.4 L, MCV 84.1, MCH 25.2 L, MCHC 29.9 L, RDW Std Deviation 52.7 H, RDW Coeff of Rosa 17.4 H, Plt Count 290, MPV 9.6, Immature Gran % (Auto) 0.300, Neut % (Auto) 93.1 H, Lymph % (Auto) 5.1 L, [place] % (Auto) 1.3, Eos % (Auto) 0.0, Baso % (Auto) 0.2, Absolute Neuts (auto) 5.7, Absolute Lymphs (auto) 0.31 L, Nucleated RBC % 0, Polychromasia 1+, Anisocytosis 1+, Target Cells RARE 06/01/21 06:10: Sodium 133 L, Potassium 4.8, Chloride 103, Carbon Dioxide 23.0, Anion Gap 7, BUN 33 H, Creatinine 2.11 H, Estim Creat Clear Calc 29.79, Est GFR (MDRD) Af Amer 39 L, Est GFR (MDRD) Non-Af 32 L, BUN/Creatinine Ratio 15.6, Glucose 401 H, Calcium 8.5, Total Bilirubin 1.20 H, AST 33, ALT 39, Alkaline Phosphatase 233 H, Total Protein 6.1 L, Albumin 2.2 L, Globulin 3.9, Albumin/Globulin Ratio 0.6 L 06/01/21 06:35: POC Glucose 390 H 06/01/21 12:57: POC Glucose 356 H Radiography Diagnostic Testing: Radiology Impression Chest X-Ray 05/31/21 16:05 IMPRESSION: Stable extensive bilateral pulmonary opacities, refer to CT for more definitive confirmation. Electronically Signed: Saniya Pickering MD at 17:48 EDT Tel , Service support , Physical Exam Narrative General. Elderly man, chronically ill-appearing, on 1 to 2 L of oxygen HEENT. Oral mucosa moist, normocephalic. Neck. Supple, questionable jugular venous distention Heart. First and second heart sounds heard, slightly distant. Lungs. Bronchial breath sounds in both mid and lower zones bilaterally but more on the right, fine crackles and questionable pleural rubs noted as well, right more than the left. Abdomen. Moves with respiration. 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 Conscious and alert. Oriented x3. Cranial nerves II through XII grossly intact. Extremities. No no lower extremity edema. Assessment & Plan Assessment/Plan (1) Acute on chronic respiratory failure with hypoxia: (2) Interstitial lung disease: (3) RENEE (obstructive sleep apnea): (4) Essential (primary) hypertension: (5) Interstitial lung disease: PLAN: 1. 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 Anemia, acute on chronic, steady drop in Hb from March to now Will check FOBT, iron stores Repeat blood work in am 3. Rest of chronic medical conditions are stable - paroxysmal atrial fibrillation, CAD s/p stent, thoracic aortic aneurysm, hypertension, hyperlipidemia,PAD, renal artery stenosis, CKD stage 3a - remains stable Home meds reviewed BS are uncontrolled; increase Lantus to 25 units QHS, continue on premeal Lispro as well as ISS Charges/Coding Visit Charges Inpatient E&M: 72449 Subs Hosp L2
[2021-06-01 14:17] LABS: Platelet Count 317 K/mm3 (150-450); RET-HE 25.4 pg (30-35); Reticulocyte Count 3.54 % (0.5-1.5)
[2021-06-01 14:18] LABS: Iron 23 ug/dL (65-175); Iron Binding Capacity,Total 262 ug/dL (250-450); PERCENT IRON SATURATION 8.8 % (15.0-55.0)
[2021-06-01 16:46] LABS: Bedside Glucose 247 mg/dL (70-110)
[2021-06-01] MEDS: Atorvastatin Calcium 40 MG Tablet PO (22:47)
[2021-06-01] MEDS: Rivaroxaban 15 MG Tablet PO (22:49)
[2021-06-01 23:16] LABS: Bedside Glucose 156 mg/dL (70-110)
[2021-06-02 04:30] VITALS: BP 104/64; PULSE 69; RESP 18; TEMP 36.9; O2SAT 94
[2021-06-02 06:56] LABS: Bedside Glucose 235 mg/dL (70-110)
[2021-06-02 07:02] LABS: Absolute Lymphocyte Count 0.41 X10^3/uL (0.83-4.51); Absolute Neutrophil Count 14.8 X10^3/uL (2.0-7.7); Basophil# 0.02 X10^3/uL; Basophil% 0.1 % (0-1); Hematocrit 26.7 % (40-54); Hemoglobin 7.8 g/dL (13.0-16.5); Lymphocyte # 0.41 X10^3/ul (0.83-4.51); Lymphocyte % 2.6 % (19-41); Mean Corp Hgb Conc 29.2 g/dL (32-36); Mean Corpuscular Hgb 24.6 pg (27.0-32.0); Mean Corpuscular Volume 84.2 fL (80-94); Mean Platelet Vol. 9.9 fl (6.2-12.0); Monocyte# 0.27 X10^3/uL; Monocyte% 1.7 % (0-10); NRBC Flagged by Analyzer 0 % (0-5); Neutrophil # 14.81 X10^3/uL (2.7-7.7); Neutrophil % 94.8 % (47-70); POSITIVE DIFFERENTIAL YES; Platelet Count 365 K/mm3 (150-450); RBC Distribution Width CV 17.2 % (11.6-14.6); RBC Distribution Width SD 52.5 fl (35.1-43.9); Red Blood Count 3.17 M/mm3 (4.6-6.2); White Blood Count 15.6 K/mm3 (4.4-11.0)
[2021-06-02 07:14] LABS: Differential Indicated SCAN CRITERIA MET
[2021-06-02 07:32] LABS: ALB/GLOB Ratio 0.6 RATIO (0.9-2.4); AST(SGOT) 43 U/L (15-37); Alanine Aminotransfer ALT/SGPT 45 U/L (16-61); Albumin, Serum 2.2 g/dL (3.2-5.0); Alkaline Phosphatase 214 U/L (45-117); Anion Gap 7 (5-15); BUN 43 mg/dL (7-18); BUN/Creat Ratio 19.5 RATIO (10-20); Calcium,Total 8.9 mg/dL (8.5-10.1); Chloride 103 mmol/L (98-107); Creatinine, Serum 2.21 mg/dL (0.70-1.30); EST Glomerular Filtration Rate 31 mL/min (>60); Est Glom Filt Rate - Afr Amer 37 mL/min (>60); Estimated Creatinine Clearance 28.44 ml/min; Glucose 247 mg/dL (74-106); Potassium 4.5 mmol/L (3.5-5.1); Protein, Total 6.2 g/dL (6.4-8.2); Sodium Level 133 mmol/L (136-145)
[2021-06-02] MEDS: Insulin Lispro 100 UNIT/ML INSULN.PEN 25 UNIT SC ×3 (07:52→16:16)
[2021-06-02] MEDS: Insulin Lispro 100 UNIT/ML INSULN.PEN SC ×4 (07:53→21:51)
[2021-06-02 07:58] VITALS: BP 99/48; PULSE 68; RESP 18; TEMP 36.9; O2SAT 92
[2021-06-02 09:15] VITALS: O2SAT 92
[2021-06-02] MEDS: Aspirin 81 MG TAB.CHEW PO (09:34)
[2021-06-02] MEDS: TICAGRELOR 90 MG TABLET PO ×2 (09:34→21:53)
[2021-06-02] MEDS: Amiodarone 200 MG Tablet PO (09:34)
[2021-06-02] MEDS: Pantoprazole Sodium 40 MG Tablet PO ×2 (09:34→09:35)
[2021-06-02] MEDS: Amox/Clavulanate 500 MG Tablet PO ×2 (09:34→22:00)
--- NOTE | 2021-06-02 11:55 | CASEMGMT ---
ANGIE CONTE Assessment: Face to Face with pt for initial transition planning/care coordination assessment. ANGIE CONTE introduced self and role at [facility], pt voices understanding and consents to assessment. Pt is A/O x4 and answers all questions appropriately at this time. Pt sitting in bed with O2 on in no distress, at bedside. Care providers, pharmacy, and demographics verified/updated. Admitting Dx: acute on chronic hypoxic resp failure PCP: Rojelio Specialists:Fabiano, cardio; Laurent, nephro Preferred Pharmacy: [facility] Insurance: [employer] Prescription Benefit: yes LW/HPOA: Pt has a LW/DPOA on file at [facility]. His DPOA is his , Marion Aguilar. LNOK: Marion Aguilar, Living Arrangements: Pt lives with and developmentally delayed son in a single story house with three steps to enter. Pt reports being I in ADL's and denies concerns at home. Transportation: Pt does not drive often. Pt transports him to medical appts. DME/HHC/SNF: Pt has a pulse ox, w/c that he does not use and a BGM. Pt reports he has strips and lancets for his BGM. He also has needles and insulin. Pt denies any hx of HHC or SNF stays. Provided pt with list of local DME companies should pt need O2. Pt chose [employer]. Pt states no concerns with going home at time of dc. Pt states no further concerns/needs. CM to follow. Advised pt to ask CM if any further question/concerns/needs arise, voices understanding. Pt Goal: Home Plan: Home
[2021-06-02 12:05] LABS: Bedside Glucose 246 mg/dL (70-110)
--- NOTE | 2021-06-02 13:12 | PCS.PANDOC ---
PANDEMIC DOCUMENTATION INITIATED: Date: 04/28/2021 Time: 190
[2021-06-02 13:34] VITALS: BP 101/54; PULSE 66; RESP 18; TEMP 36.6; O2SAT 92
--- NOTE | 2021-06-02 14:19 | PCM.PN.INT ---
Assessment & Plan Assessment/Plan (1) Exercise hypoxemia: (2) Interstitial lung disease: (3) Paroxysmal atrial fibrillation: (4) RENEE (obstructive sleep apnea): PLAN: RECOMMENDATIONS: 1. Await results of previously ordered outpatient work-up including myositis panel and AFB smear/cultures. 2. Wean supplemental oxygen to maintain saturations at or above 90%. 3. Await results of repeat echocardiogram. 4. Gentle diuresis as tolerated by hemodynamics and renal function. 5. Continue antimicrobials to complete treatment course. 6. Check stool guaiac and iron studies. 7. Continue to monitor H&H. Transfuse if hemoglobin drops below 7 g/dL. 8. Encourage incentive spirometer use and mobilize patient as tolerated. IMPRESSIONS: 1. Exertional hypoxemia in the setting of progressive lung disease The exact etiology for the patient's bilateral groundglass changes and exertional dyspnea is still under work-up. He did undergo recent bronchoscopy which did reveal bilateral MSSA on BAL. He is on appropriate antimicrobials. Prior autoimmune work-up was negative. Currently, myositis panel is still pending. AFB smear and cultures are also still pending. BNP was elevated at presentation. Therefore, the patient did receive IV Lasix. In addition to all of the aforementioned, the patient is anemic, which is also likely contributing to his dyspnea. At this time, I recommend that we continue his antimicrobials to complete a 7-day treatment course. Although amiodarone induced pulmonary toxicity is a possibility, the patient has been on the medication for quite some time and is on a low daily dose. Therefore, I do not feel that it is imperative to discontinue his amiodarone at the current time. However, this may be a consideration in the near future. Repeat echocardiogram will also be obtained to evaluate for the presence of pulmonary hypertension. 2. Anemia The patient has demonstrated an approximate 4 g drop in hemoglobin since the end of March 2021. This may also be certainly contributing to his perceived dyspnea. He is on a number of potential offending medications at his baseline including aspirin, Brilinta and Xarelto. He denies any overt signs of blood loss. Recommend checking stool guaiac and iron studies. Continue to monitor H&H and transfuse if hemoglobin drops below 7 g/dL. 3. Paroxysmal A. fib/PAD/renal artery stenosis/CKD/advanced age/diabetes mellitus Complicates care, management, recovery and prognosis. Rate is controlled at this time. Patient is on anticoagulation. This note was generated with [employer]-sensing dictation software. It may contain incorrect words, spelling, and punctuation that were not noted in checking the note before signing. Subjective Subjective The patient was seen and examined at the bedside this morning. Events from the last 24 hours have been reviewed. The patient is currently afebrile, hemodynamically stable and maintaining appropriate oxygen saturations on 1 L/min via nasal cannula. Since March of this year, the patient has had a 4 g drop in hemoglobin. He continues to have shortness of breath. He is currently documented to be overall net -800 mL for the hospital admission. Objective Data Objective Data The patient's most recent lab work, culture data and imaging studies have all been personally reviewed. Vital Signs: Vital Signs Temp Pulse Resp BP Pulse Ox 97.9 F 66 18 101/54 L 92 06/02/21 13:34 06/02/21 13:34 06/02/21 13:34 06/02/21 13:34 06/02/21 13:34 Oxygen Flow Rate (L/min) 1 Oxygen Delivery Method Nasal Cannula Weight: 75 kg Body Mass Index (BMI) 23.7 Intake & Output: Intake and Output for Last 24 Hours 05/31/21 06/01/21 06/02/21 23:59 23:59 23:59 Intake Total 100 / 100 800 / 800 250 / 250 Output Total 1150 / 1275 825 / 825 Balance 100 / -150 -350 / -475 -575 / -575 Lab / Micro Data Attestation: I reviewed the patient's lab results. Result Diagrams: 06/02/21 06:25 06/02/21 06:25 Labs: Laboratory Results - last 24 hr 06/01/21 06:10: Retic Count 3.54 H, Immature Retic Fraction 34.20 H, Retic Hgb Equivalent 25.4 L 06/01/21 16:39: POC Glucose 247 H 06/01/21 22:45: POC Glucose 156 H 06/02/21 06:25: WBC 15.6 H, RBC 3.17 L, Hgb 7.8 L, Hct 26.7 L, MCV 84.2, MCH 24.6 L, MCHC 29.2 L, RDW Std Deviation 52.5 H, RDW Coeff of Rosa 17.2 H, Plt Count 365, MPV 9.9, Immature Gran % (Auto) 0.800, Neut % (Auto) 94.8 H, Lymph % (Auto) 2.6 L, [place] % (Auto) 1.7, Eos % (Auto) 0.0, Baso % (Auto) 0.1, Absolute Neuts (auto) 14.8 H, Absolute Lymphs (auto) 0.41 L, Nucleated RBC % 0, Differential Comment COMMENT 06/02/21 06:25: Sodium 133 L, Potassium 4.5, Chloride 103, Carbon Dioxide 23.0, Anion Gap 7, BUN 43 H, Creatinine 2.21 H, Estim Creat Clear Calc 28.44, Est GFR (MDRD) Af Amer 37 L, Est GFR (MDRD) Non-Af 31 L, BUN/Creatinine Ratio 19.5, Glucose 247 H, Calcium 8.9, Total Bilirubin 1.10 H, AST 43 H, ALT 45, Alkaline Phosphatase 214 H, Total Protein 6.2 L, Albumin 2.2 L, Globulin 4.0, Albumin/Globulin Ratio 0.6 L 06/02/21 06:47: POC Glucose 235 H 06/02/21 11:58: POC Glucose 246 H Physical Exam Const alert and no apparent distress Constitutional Narrative: is present at the bedside. General Appearance: cooperative HEENT normocephalic, head/scalp atraumatic and moist oral mucous membranes Eyes PERRL and EOMs intact bilaterally Neck supple General: trachea midline Chest inspection of chest normal Resp normal respiratory effort Auscultation: Negative for rales, rhonchi or wheezes Cardio regular rate and regular rhythm GI normal to inspection, nondistended, normoactive bowel sounds Extremity no clubbing, cyanosis or edema Skin no rashes or lesions noted Neuro CN's II-XII intact bilaterally, moves all extremities and no focal motor deficits Psych cooperative and affect normal Charges/Coding Visit Charges Inpatient E&M: 22084 Subs Hosp L3
[2021-06-02 15:04] LABS: Ferritin 162 ng/mL (26-388); Iron 19 ug/dL (65-175); Iron Binding Capacity,Total 279 ug/dL (250-450); PERCENT IRON SATURATION 6.8 % (15.0-55.0)
[2021-06-02 16:41] LABS: Bedside Glucose 243 mg/dL (70-110)
--- NOTE | 2021-06-02 17:29 | PN.HOSP_ITS ---
Subjective Subjective Patient states he has had ongoing respiratory issues. He follows with pulmonary. He is still requiring 1 L nasal cannula which is not his baseline. He states he has significant dyspnea with exertion. Work-up for atypical causes of lung disease in progress including amiodarone lung. Patient reports he is approximately 50% better overall since admission. Objective Data Objective Data Vital Signs: Vital Signs Temp Pulse Resp BP Pulse Ox 97.9 F 66 18 101/54 L 92 06/02/21 13:34 06/02/21 13:34 06/02/21 13:34 06/02/21 13:34 06/02/21 13:34 Oxygen Flow Rate (L/min) 1 Oxygen Delivery Method Nasal Cannula Weight: 75 kg Body Mass Index (BMI) 23.7 Intake & Output: Intake and Output for Last 24 Hours 05/31/21 06/01/21 06/02/21 23:59 23:59 23:59 Intake Total 100 / 100 800 / 800 250 / 250 Output Total 1150 / 1275 825 / 825 Balance 100 / -150 -350 / -475 -575 / -575 Lab / Micro Data Result Diagrams: 06/02/21 06:25 06/02/21 06:25 Labs: Laboratory Results - last 24 hr 06/01/21 22:45: POC Glucose 156 H 06/02/21 06:25: WBC 15.6 H, RBC 3.17 L, Hgb 7.8 L, Hct 26.7 L, MCV 84.2, MCH 24.6 L, MCHC 29.2 L, RDW Std Deviation 52.5 H, RDW Coeff of Rosa 17.2 H, Plt Co unt 365, MPV 9.9, Immature Gran % (Auto) 0.800, Neut % (Auto) 94.8 H, Lymph % (Auto) 2.6 L, [place] % (Auto) 1.7, Eos % (Auto) 0.0, Baso % (Auto) 0.1, Absolute Neuts (auto) 14.8 H, Absolute Lymphs (auto) 0.41 L, Nucleated RBC % 0, Differential Comment COMMENT 06/02/21 06:25: Sodium 133 L, Potassium 4.5, Chloride 103, Carbon Dioxide 23.0, Anion Gap 7, BUN 43 H, Creatinine 2.21 H, Estim Creat Clear Calc 28.44, Est GFR (MDRD) Af Amer 37 L, Est GFR (MDRD) Non-Af 31 L, BUN/Creatinine Ratio 19.5, Glucose 247 H, Calcium 8.9, Total Bilirubin 1.10 H, AST 43 H, ALT 45, Alkaline Phosphatase 214 H, Total Protein 6.2 L, Albumin 2.2 L, Globulin 4.0, Albumin/Globulin Ratio 0.6 L 06/02/21 06:25: Iron 19 L, TIBC 279, Iron Saturation 6.8 L, Ferritin 162 06/02/21 06:47: POC Glucose 235 H 06/02/21 11:58: POC Glucose 246 H 06/02/21 16:15: POC Glucose 243 H Physical Exam Const alert, oriented x3, no apparent distress, average body habitus and healthy appearing Constitutional Narrative: Older white male sitting up in bed, appears younger than stated age, nontoxic, nursing at bedside, appears comfortable Exam Limitations: no limitations HEENT head/scalp atraumatic and moist oral mucous membranes Head and Scalp: normocephalic Resp normal respiratory effort, no retractions and no use of accessory muscles Resp Narrative: Marked Velcro sounding crackles at right lung base Auscultation: crackles; Negative for rales, rhonchi or wheezes Cardio regular rate, S1 normal heart sound, S2 normal heart sound, no murmurs, no rub, no gallops, no clicks and no JVD Cardio Narrative: Irregular rhythm GI normal to inspection, nondistended, normoactive bowel sounds, soft to palpation, non-tender and non-distended Extremity no clubbing, cyanosis or edema Peripheral Pulses: Yes pulses 2+ throughout Skin no rashes or lesions noted, no wounds, skin turgor normal, no jaundice, no petechiae and no mottling Neuro oriented x3, moves all extremities and no focal motor deficits Sensorium / Orientation: awake and alert Speech: speech normal Psych affect normal Assessment & Plan Assessment/Plan (1) Exercise hypoxemia: (2) Acute anemia: PLAN: Exertional hypoxia in the setting of progressive lung disease -Pulmonary work-up is in progress -Patient is requiring 1 L at rest and requires more with exertion secondary to dyspnea and hypoxia -Autoimmune work-up in progress -Is a consideration as the patient has been on amiodarone -This is more unlikely as he has been on amiodarone for an extended period of time -Discussed the case with pulmonology -Continue steroids -Recent bronchoscopy was performed on 05/22/2021 and 2 BALs grew out staph aureus -Pulmonology following appreciate input MSSA pneumonia -Cultures are from BAL on 05/22/2021 -Continue Augmentin as ordered -Pulmonary is following Acute normocytic anemia -Patient has had a drop in his hemoglobin that appears to be progressive since March 282020 -Prior to this date he had erythrocytosis at times -His TIBC is within normal limits, his total iron is low, his ferritin is normal, and his iron saturation is low -This is not exactly consistent with iron deficiency -His total bilirubin is mildly elevated at 1.1 -We will check Hemoccult, reticulocyte count, haptoglobin, and peripheral smear -Patient is anticoagulated at baseline -Continue to trend hemoglobin -May need GI involvement for colonoscopy as an outpatient -Need to discuss with patient if he is ever had a colonoscopy and is guaiac p ositive -Patient is on Xarelto, Brilinta, and aspirin at baseline -We will discontinue aspirin at this time as triple therapy does increase the risk for GI bleed DM-2 -Blood sugars are up secondary to steroid use -Anticipate reduction of steroids tomorrow and therefore will make no changes in insulin regimen at this time -Continue current Lantus and Humalog dosing -Continue Accu-Cheks -Continue SSI CAD/HTN/HPL -Continue home medications Atrial fibrillation -Continue amiodarone -Continue Xarelto History of stroke -Continue chronic medications COPD/history of tobacco abuse -Remote tobacco abuse history -Continue as needed pulmonary toilet GERD -Continue famotidine/omeprazole DVT prophylaxis -Patient is fully anticoagulated CODE STATUS -Full code Charges/Coding Visit Charges Inpatient E&M: 19916 Subs Hosp L2
[2021-06-02 20:30] VITALS: BP 116/57; PULSE 70; RESP 18; TEMP 36.5; O2SAT 94
[2021-06-02] MEDS: Propranolol 40 MG Tablet 80 MG PO (21:53)
[2021-06-02] MEDS: Atorvastatin Calcium 40 MG Tablet PO (21:54)
[2021-06-02] MEDS: Rivaroxaban 15 MG Tablet PO (21:54)
[2021-06-02] MEDS: 0.9% Saline Lock 10 ML Syringe IV (21:57)
[2021-06-02 22:05] LABS: Bedside Glucose 250 mg/dL (70-110)
[2021-06-03] VITALS (9 sets, daily range): BP systolic 92–115; BP diastolic 54–73; PULSE 61–80; RESP 16–18; TEMP 36.4–36.8; O2SAT 86–97
[2021-06-03] MEDS: Acetaminophen 325 MG Tablet 650 MG PO (06:08)
[2021-06-03 06:27] LABS: Absolute Lymphocyte Count 0.46 X10^3/uL (0.83-4.51); Absolute Neutrophil Count 17.3 X10^3/uL (2.0-7.7); Basophil# 0.01 X10^3/uL; Basophil% 0.1 % (0-1); Hematocrit 24.5 % (40-54); Hemoglobin 7.5 g/dL (13.0-16.5); Lymphocyte # 0.46 X10^3/ul (0.83-4.51); Lymphocyte % 2.5 % (19-41); Mean Corp Hgb Conc 30.6 g/dL (32-36); Mean Corpuscular Hgb 25.3 pg (27.0-32.0); Mean Corpuscular Volume 82.5 fL (80-94); Mean Platelet Vol. 9.7 fl (6.2-12.0); Monocyte# 0.46 X10^3/uL; Monocyte% 2.5 % (0-10); NRBC Flagged by Analyzer 0.1 % (0-5); Neutrophil # 17.31 X10^3/uL (2.7-7.7); Neutrophil % 93.9 % (47-70); POSITIVE DIFFERENTIAL YES; Platelet Count 373 K/mm3 (150-450); RBC Distribution Width CV 17.4 % (11.6-14.6); RBC Distribution Width SD 51.9 fl (35.1-43.9); RET-HE 23.1 pg (30-35); Red Blood Count 2.97 M/mm3 (4.6-6.2); Reticulocyte Count 3.99 % (0.5-1.5); White Blood Count 18.4 K/mm3 (4.4-11.0)
[2021-06-03 06:51] LABS: ALB/GLOB Ratio 0.6 RATIO (0.9-2.4); AST(SGOT) 43 U/L (15-37); Alanine Aminotransfer ALT/SGPT 45 U/L (16-61); Albumin, Serum 2.2 g/dL (3.2-5.0); Alkaline Phosphatase 199 U/L (45-117); Anion Gap 8 (5-15); BUN 47 mg/dL (7-18); Calcium,Total 8.9 mg/dL (8.5-10.1); Chloride 102 mmol/L (98-107); Creatinine, Serum 2.04 mg/dL (0.70-1.30); EST Glomerular Filtration Rate 34 mL/min (>60); Est Glom Filt Rate - Afr Amer 41 mL/min (>60); Estimated Creatinine Clearance 30.81 ml/min; Globulin 3.7 g/dL (2.2-4.2); Glucose 231 mg/dL (74-106); Potassium 4.6 mmol/L (3.5-5.1); Protein, Total 5.9 g/dL (6.4-8.2); Sodium Level 132 mmol/L (136-145)
[2021-06-03 07:09] LABS: Differential Indicated SCAN CRITERIA MET
[2021-06-03 07:14] LABS: Anisocytosis 1+
[2021-06-03] MEDS: Insulin Lispro 100 UNIT/ML INSULN.PEN SC ×4 (07:15→21:26)
[2021-06-03] MEDS: Insulin Lispro 100 UNIT/ML INSULN.PEN 25 UNIT SC ×3 (07:15→16:47)
[2021-06-03 07:21] LABS: Bedside Glucose 227 mg/dL (70-110)
--- NOTE | 2021-06-03 08:21 | PCM.PN.HOSP ---
Subjective Subjective Patient is a 76-year-old gentleman who presented with progressive shortness of breath. Underwent bronchoscopy performed on 05/22/2021 bronchial alveolar lavage grew staph aureus Patient seen still requiring significant amount of oxygen early 6 with desats with ambulation Objective Data Objective Data Vital Signs: Vital Signs Temp Pulse Resp BP Pulse Ox 98.3 F 68 18 113/55 L 92 06/03/21 02:30 06/03/21 02:30 06/03/21 02:30 06/03/21 02:30 06/03/21 07:40 Oxygen Flow Rate (L/min) 4 Oxygen Delivery Method Nasal Cannula Weight: 75 kg Body Mass Index (BMI) 23.7 Intake & Output: Intake and Output for Last 24 Hours 06/01/21 06/02/21 06/03/21 23:59 23:59 23:59 Intake Total 800 / 800 600 / 600 Output Total 1150 / 1275 1500 / 1500 350 / 350 Balance -350 / -475 -900 / -900 -350 / -350 Lab / Micro Data Result Diagrams: 06/03/21 05:44 06/03/21 05:44 Labs: Laboratory Results - last 24 hr 06/02/21 06:25: WBC 15.6 H, RBC 3.17 L, Hgb 7.8 L, Hct 26.7 L, MCV 84.2, MCH 24.6 L, MCHC 29.2 L, RDW Std Deviation 52.5 H, RDW Coeff of Rosa 17.2 H, Plt Count 365, MPV 9.9, Immature Gran % (Auto) 0.800, Neut % (Auto) 94.8 H, Lymph % (Auto) 2.6 L, [place] % (Auto) 1.7, Eos % (Auto) 0.0, Baso % (Auto) 0.1, Absolute Neuts (auto) 14.8 H, Absolute Lymphs (auto) 0.41 L, Nucleated RBC % 0, Differential Comment COMMENT, Diff Path Review January06/02/21 06:25: Iron 19 L, TIBC 279, Iron Saturation 6.8 L, Ferritin 162 06/02/21 06:25: Folate 21.70 06/02/21 11:58: POC Glucose 246 H 06/02/21 16:15: POC Glucose 243 H 06/02/21 21:49: POC Glucose 250 H 06/03/21 05:44: WBC 18.4 H, RBC 2.97 L, Hgb 7.5 L, Hct 24.5 L, MCV 82.5, MCH 25.3 L, MCHC 30.6 L, RDW Std Deviation 51.9 H, RDW Coeff of Rosa 17.4 H, Plt Count 373, MPV 9.7, Immature Gran % (Auto) 1.000 H, Neut % (Auto) 93.9 H, Lymph % (Auto) 2.5 L, [place] % (Auto) 2.5, Eos % (Auto) 0.0, Baso % (Auto) 0.1, Absolute Neuts (auto) 17.3 H, Absolute Lymphs (auto) 0.46 L, Nucleated RBC % 0.1, Anisocytosis 1+, Retic Count 3.99 H, Immature Retic Fraction 38.00 H, Retic Hgb Equivalent 23.1 L 06/03/21 05:44: Sodium 132 L, Potassium 4.6, Chloride 102, Carbon Dioxide 22.0, Anion Gap 8, BUN 47 H, Creatinine 2.04 H, Estim Creat Clear Calc 30.81, Est GFR (MDRD) Af Amer 41 L, Est GFR (MDRD) Non-Af 34 L, BUN/Creatinine Ratio 23.0 H, Glucose 231 H, Calcium 8.9, Total Bilirubin 1.00, AST 43 H, ALT 45, Alkaline Phosphatase 199 H, Total Protein 5.9 L, Albumin 2.2 L, Globulin 3.7, Albumin/Globulin Ratio 0.6 L 06/03/21 07:14: POC Glucose 227 H Radiography Diagnostic Testing: Radiology Impression Echocardiogram 05/31/21 19:52 Interpretation Summary Normal LV size. Left ventricular systolic function is normal. The estimated ejection fraction is 60 %. Stage 2 diastolic dysfunction. Pulmonary artery systolic pressure is 48 mmHg. Moderate concentric left ventricular hypertrophy. Ordering Physician: Gerardo Cardenas Referring Physician: Jonny Serrato Performed By: Gregory Reyes RCS Physical Exam Narrative GENERAL: cooperative HEENT: Atraumatic; EYES; Anicteric, Normal Conjunctiva NECK; supple, normal thyroid, RESPIRATORY: Diminished to auscultation CARDIOVASCULAR: Regular S1 S2, GI: soft, normoactive bowel sounds, : No Renal angle tenderness; EXTREMITIES: No edema, no clubbing, MUSCULOSKELETAL: no muscle waisting NEURO: Awake; no lateralizing signs. SKIN: No Rash PSYCH; Flat affect Assessment & Plan Assessment/Plan (1) Exercise hypoxemia: (2) Acute anemia: PLAN: Patient is a 76-year-old gentleman who presented with progressive shortness of breath. Underwent bronchoscopy performed on 05/22/2021 bronchial alveolar lavage grew staph aureus 1. Acute hypoxic respiratory insufficiency ?Secondary to staph aureus pneumonia. Patient managed with Augmentin. Still remains significantly hypoxic and patient will probably require oxygen on discharge 2. Progressive lung disease ?? Interstitial lung disease. Patient is known to have bilateral groundglass changes with significant exertion on minimal activity. As stated above recent bronchoalveolar lavage following bronchoscopy grew staph aureus patient remains on Augmentin 3. Anemia - Secondary to chronic disorder monitoring H&H and transfuse if patient becomes symptomatic or hemoglobin falls below 7 4. Paroxysmal A. fib ?Patient is on systemic anticoagulation with Xarelto and antiarrhythmic with amiodarone 5. Diabetes mellitus type II -patient's oral hypoglycemics held. Placed on long acting insulin, Accu-Cheks a.c. and at bedtime and covered with sliding scale insulin 6. History of previous embolic stroke ?Patient is on Xarelto 7. Dyslipidemia -Patient is on statin therapy, continued at home dose 8. Essential hypertension ?Patient was on amlodipine discontinued in view of relative hypotension 9. COPD ?Has remote history of tobacco use aerosol treatment as needed ordered. 10. Coronary artery disease ?With previous PCI with stent placement 11. GERD ?Patient is on omeprazole 12. DVT prophylaxis ?Xarelto Charges/Coding Visit Charges Inpatient E&M: 74060 Subs Hosp L2
[2021-06-03 08:35] LABS: Vitamin B12 564 pg/mL (211-911)
[2021-06-03] MEDS: Pantoprazole Sodium 40 MG Tablet PO (08:45)
[2021-06-03] MEDS: Amiodarone 200 MG Tablet PO (08:45)
[2021-06-03] MEDS: Losartan Potassium 25 MG Tablet PO (08:45)
[2021-06-03] MEDS: Propranolol 40 MG Tablet 80 MG PO ×2 (08:46→21:26)
[2021-06-03] MEDS: TICAGRELOR 90 MG TABLET PO ×2 (08:47→21:26)
[2021-06-03] MEDS: 0.9% Saline Lock 10 ML Syringe IV ×2 (08:56→21:25)
[2021-06-03] MEDS: Amox/Clavulanate 500 MG Tablet PO ×2 (10:54→21:25)
[2021-06-03 11:10] LABS: Bedside Glucose 285 mg/dL (70-110)
[2021-06-03 13:27] LABS: Pathologist Review Reviewed
[2021-06-03 16:01] LABS: Bedside Glucose 311 mg/dL (70-110)
[2021-06-03] MEDS: Atorvastatin Calcium 40 MG Tablet PO (21:25)
[2021-06-03] MEDS: Rivaroxaban 15 MG Tablet PO (21:26)
[2021-06-03 21:36] LABS: Bedside Glucose 265 mg/dL (70-110)
[2021-06-04 02:26] VITALS: BP 116/59; PULSE 66; RESP 18; TEMP 37.2; O2SAT 95
[2021-06-04] MEDS: Insulin Lispro 100 UNIT/ML INSULN.PEN SC ×2 (06:31→12:59)
[2021-06-04] MEDS: Insulin Lispro 100 UNIT/ML INSULN.PEN 25 UNIT SC ×2 (06:31→12:59)
[2021-06-04] MEDS: Furosemide 40 MG/4 ML Vial IV (06:36)
[2021-06-04] MEDS: 0.9% Saline Lock 10 ML Syringe IV ×2 (06:40→09:08)
[2021-06-04 06:56] LABS: Bedside Glucose 284 mg/dL (70-110)
[2021-06-04 07:50] LABS: Absolute Lymphocyte Count 0.41 X10^3/uL (0.83-4.51); Absolute Neutrophil Count 18.4 X10^3/uL (2.0-7.7); Basophil# 0.01 X10^3/uL; Basophil% 0.1 % (0-1); Hematocrit 26.2 % (40-54); Hemoglobin 7.9 g/dL (13.0-16.5); Lymphocyte # 0.41 X10^3/ul (0.83-4.51); Lymphocyte % 2.1 % (19-41); Mean Corp Hgb Conc 30.2 g/dL (32-36); Mean Corpuscular Hgb 25.1 pg (27.0-32.0); Mean Corpuscular Volume 83.2 fL (80-94); Mean Platelet Vol. 9.2 fl (6.2-12.0); Monocyte# 0.42 X10^3/uL; Monocyte% 2.2 % (0-10); NRBC Flagged by Analyzer 0.1 % (0-5); Neutrophil # 18.35 X10^3/uL (2.7-7.7); Neutrophil % 94.6 % (47-70); POSITIVE DIFFERENTIAL YES; Platelet Count 416 K/mm3 (150-450); RBC Distribution Width CV 17.2 % (11.6-14.6); RBC Distribution Width SD 51.6 fl (35.1-43.9); Red Blood Count 3.15 M/mm3 (4.6-6.2); White Blood Count 19.4 K/mm3 (4.4-11.0)
[2021-06-04 07:55] LABS: Differential Indicated SCAN CRITERIA MET
[2021-06-04 08:04] VITALS: O2SAT 91
--- NOTE | 2021-06-04 08:07 | PN.HOSP_ITS ---
Objective Data Objective Data Vital Signs: Vital Signs Temp Pulse Resp BP Pulse Ox 98.9 F 66 18 116/59 L 95 06/04/21 02:26 06/04/21 02:26 06/04/21 02:26 06/04/21 02:26 06/04/21 02:26 Oxygen Flow Rate (L/min) [ 6 AMBULATING with Oxygen #1] Oxygen Flow Rate (L/min) [At 0 REST on Room Air] Oxygen Flow Rate (L/min) 2 Oxygen Delivery Method Nasal Cannula Weight: 75 kg Body Mass Index (BMI) 23.7 Intake & Output: Intake and Output for Last 24 Hours 06/02/21 06/03/21 06/04/21 23:59 23:59 23:59 Intake Total 600 / 600 Output Total 1500 / 1500 810 / 810 550 / 550 Balance -900 / -900 -810 / -810 -550 / -550 Lab / Micro Data Result Diagrams: 06/04/21 07:40 06/03/21 05:44 Labs: Laboratory Results - last 24 hr 06/02/21 06:25: Diff Path Review Reviewed 06/03/21 05:44: Vitamin B12 564 06/03/21 11:06: POC Glucose 285 H 06/03/21 15:56: POC Glucose 311 H 06/03/21 21:20: POC Glucose 265 H 06/04/21 06:28: POC Glucose 284 H 06/04/21 07:40: WBC 19.4 H, RBC 3.15 L, Hgb 7.9 L, Hct 26.2 L, MCV 83.2, MCH 25.1 L, MCHC 30.2 L, RDW Std Deviation 51.6 H, RDW Coeff of Rosa 17.2 H, Plt Count 416, MPV 9.2, Immature Gran % (Auto) 1.000 H, Neut % (Auto) 94.6 H, Lymph % (Auto) 2.1 L, [place] % (Auto) 2.2, Eos % (Auto) 0.0, Baso % (Auto) 0.1, Absolute Neuts (auto) 18.4 H, Absolute Lymphs (auto) 0.41 L, Nucleated RBC % 0.1 Physical Exam Narrative GENERAL: cooperative HEENT: Atraumatic; EYES; Anicteric, Normal Conjunctiva NECK; supple, normal thyroid, RESPIRATORY: Diminished to auscultation CARDIOVASCULAR: Regular S1 S2, GI: soft, normoactive bowel sounds, : No Renal angle tenderness; EXTREMITIES: No edema, no clubbing, MUSCULOSKELETAL: no muscle waisting NEURO: Awake; no lateralizing signs. SKIN: No Rash PSYCH; Flat affect Assessment & Plan Assessment/Plan (1) Exercise hypoxemia: (2) Acute anemia: PLAN: Patient is a 76-year-old gentleman who presented with progressive shortness of breath. Underwent bronchoscopy performed on 05/22/2021 bronchial alveolar lavage grew staph aureus 1. Acute hypoxic respiratory insufficiency ?Secondary to staph aureus pneumonia. Patient managed with Augmentin. Still remains significantly hypoxic and patient will probably require oxygen on discharge 2. Progressive lung disease ?? Interstitial lung disease. Patient is known to have bilateral groundglass changes with significant exertion on minimal activity. As stated above recent bronchoalveolar lavage following bronchoscopy grew staph aureus patient remains on Augmentin 3. Anemia - Secondary to chronic disorder monitoring H&H and transfuse if patient becomes symptomatic or hemoglobin falls below 7 4. Paroxysmal A. fib ?Patient is on systemic anticoagulation with Xarelto and antiarrhythmic with amiodarone 5. Diabetes mellitus type II -patient's oral hypoglycemics held. Placed on long acting insulin, Accu-Cheks a.c. and at bedtime and covered with sliding scale insulin 6. History of previous embolic stroke ?Patient is on Xarelto 7. Dyslipidemia -Patient is on statin therapy, continued at home dose 8. Essential hypertension ?Patient was on amlodipine discontinued in view of relative hypotension 9. COPD ?Has remote history of tobacco use aerosol treatment as needed ordered. 10. Coronary artery disease ?With previous PCI with stent placement 11. GERD ?Patient is on omeprazole 12. DVT prophylaxis ?Xarelto
[2021-06-04 08:18] LABS: Anion Gap 6 (5-15); BUN 57 mg/dL (7-18); BUN/Creat Ratio 26.8 RATIO (10-20); Calcium,Total 8.9 mg/dL (8.5-10.1); Chloride 103 mmol/L (98-107); Creatinine, Serum 2.13 mg/dL (0.70-1.30); EST Glomerular Filtration Rate 32 mL/min (>60); Est Glom Filt Rate - Afr Amer 39 mL/min (>60); Estimated Creatinine Clearance 29.51 ml/min; Glucose 245 mg/dL (74-106); Potassium 4.3 mmol/L (3.5-5.1); Sodium Level 133 mmol/L (136-145)
[2021-06-04 08:24] LABS: Hypochromasia 2+
[2021-06-04 08:57] LABS: Haptoglobin 247 mg/dL (34-355)
[2021-06-04] MEDS: Losartan Potassium 25 MG Tablet PO (09:02)
[2021-06-04] MEDS: TICAGRELOR 90 MG TABLET PO (09:02)
[2021-06-04] MEDS: Pantoprazole Sodium 40 MG Tablet PO (09:03)
[2021-06-04] MEDS: Propranolol 40 MG Tablet 80 MG PO (09:04)
[2021-06-04] MEDS: Amiodarone 200 MG Tablet PO (09:04)
[2021-06-04] MEDS: amLODIPine 2.5 MG Tablet PO (09:04)
[2021-06-04] MEDS: Amox/Clavulanate 500 MG Tablet PO (09:08)
[2021-06-04 09:26] VITALS: BP 100/55; PULSE 67; RESP 20; TEMP 36.6; O2SAT 91
[2021-06-04 09:27] VITALS: O2SAT 3; O2SAT 4; O2SAT 5; O2SAT 80; O2SAT 91
--- NOTE | 2021-06-04 10:22 | CASEMGMT ---
Pt qualifies for home O2, faxed referral to [facility] [place]. TC to [facility] [place], spoke to [place] to make aware that pt used tank from hospital stock and is dc'ing. Took tank to pt room. Instructed pt/ to call [facility] [place] with the number on the tag once home for O2 concentrator to be set up. They verbalize understanding.
[2021-06-04 11:10] LABS: Bedside Glucose 265 mg/dL (70-110)
--- NOTE | 2021-06-04 11:46 | PCM.DC.SUM ---
Providers Date of Admission: 05/31/21 Primary Care Physician: Dr. Jonny Serrato MD Consultations 05/31/21 19:52 Consult: Server Administrator / Pulmonary Medicine Routine Consulting Provider: Triston Andre Reason for Consult: Exacerbation of interstitial lung disease EMERGENT Consult: No MD Notified: Yes Date Notified: 06/01/21 Time Notified: 06:31 Method of Notification: Text Reason For Visit: ACUTE ON CHRONIC HYPOXIC RESP FAILURE 2NDARY Diagnosis Discharge Diagnosis (1) Exercise hypoxemia: Status: Acute Code(s): R09.02 - Hypoxemia (2) Acute anemia: Status: Acute Code(s): D64.9 - Anemia, unspecified Medications at Discharge Home Medications amlodipine 2.5 mg PO DAILY 05/15/17 famotidine 20 mg PO BID 05/15/17 propranolol 80 mg PO BID 05/15/17 acetaminophen 650 mg PO Q4H PRN PRN tab 05/17/17 rivaroxaban 15 mg PO DINNER 05/22/19 Lantus U-100 Insulin 18 unit SUBCUT QHS 03/28/21 losartan 25 mg PO DAILY 03/28/21 omeprazole 40 mg PO DAILY 03/28/21 Brilinta 90 mg PO BID 04/06/21 amiodarone 200 mg PO DAILY #100 tab 04/08/21 atorvastatin 40 mg PO QHS #90 tab 04/08/21 albuterol sulfate 90 mcg/actuation aerosol inhaler 2 puff INHALATION Q6H PRN #8.5 g 05/09/21 insulin lispro [Humalog U-100 Insulin] 25 unit SUBCUT TIDCM 05/15/21 doxycycline hyclate 100 mg PO BID #14 cap 06/04/21 ferrous sulfate [FeroSul] 325 mg PO BID #60 tab 06/04/21 prednisone 40 mg PO DAILY #10 tab 06/04/21 Hospital Course Summary of Care Provided Minutes Spent on Discharge: 45 Hospital Course: Patient is a 76-year-old gentleman who presented with progressive shortness of breath. Underwent bronchoscopy performed on 05/22/2021 bronchial alveolar lavage grew staph aureus 1. Acute hypoxic respiratory insufficiency ?Secondary to staph aureus pneumonia. Patient managed with Augmentin. Still remains significantly hypoxic and patient will probably require oxygen on discharge -06/04/2021; patient was assessed for home oxygen which he did qualify. Patient was on Augmentin this was discontinued placed on doxycycline and discharged 2. Progressive lung disease ?? Interstitial lung disease. Patient is known to have bilateral groundglass changes with significant exertion on minimal activity. As stated above recent bronchoalveolar lavage following bronchoscopy grew staph aureus patient remains on Augmentin ?Discharged with doxycycline as well as prednisone 3. Anemia - Secondary to chronic disorder monitoring H&H and transfuse if patient becomes symptomatic or hemoglobin falls below 7 ?Patient iron studies consistent with iron deficiency anemia. Iron supplementation written on discharge. Plan is for patient to follow-up with GI as outpatient for EGD and colonoscopy 4. Paroxysmal A. fib ?Patient is on systemic anticoagulation with Xarelto and antiarrhythmic with amiodarone 5. Diabetes mellitus type II -patient's oral hypoglycemics held. Placed on long acting insulin, Accu-Cheks a.c. and at bedtime and covered with sliding scale insulin 6. History of previous embolic stroke ?Patient is on Xarelto 7. Dyslipidemia -Patient is on statin therapy, continued at home dose 8. Essential hypertension ?Patient was on amlodipine discontinued in view of relative hypotension 9. COPD ?Has remote history of tobacco use aerosol treatment as needed ordered. 10. Coronary artery disease ?With previous PCI with stent placement. Patient was on both Brilinta as well as aspirin in addition to Xarelto. Given patient significant anemia the aspirin was discontinued 11. GERD ?Patient is on omeprazole 12. DVT prophylaxis ?Xarelto Physical Exam Narrative GENERAL: cooperative HEENT: Atraumatic; EYES; Anicteric, Normal Conjunctiva NECK; supple, normal thyroid, RESPIRATORY: Diminished to auscultation CARDIOVASCULAR: Regular S1 S2, GI: soft, normoactive bowel sounds, : No Renal angle tenderness; EXTREMITIES: No edema, no clubbing, MUSCULOSKELETAL: no muscle waisting NEURO: Awake; no lateralizing signs. SKIN: No Rash PSYCH; Flat affect Weight / BMI Weight Weight: 75 kg Body Mass Index (BMI) 23.7 ABG / Lab / Microbiology Data Result Diagrams: 06/04/21 07:40 06/04/21 07:40 Laboratory: Laboratory Results - last 24 hr 06/02/21 06:25: Diff Path Review Reviewed 06/03/21 05:44: Haptoglobin 247 06/03/21 15:56: POC Glucose 311 H 06/03/21 21:20: POC Glucose 265 H 06/04/21 06:28: POC Glucose 284 H 06/04/21 07:40: WBC 19.4 H, RBC 3.15 L, Hgb 7.9 L, Hct 26.2 L, MCV 83.2, MCH 25.1 L, MCHC 30.2 L, RDW Std Deviation 51.6 H, RDW Coeff of Rosa 17.2 H, Plt Count 416, MPV 9.2, Immature Gran % (Auto) 1.000 H, Neut % (Auto) 94.6 H, Lymph % (Auto) 2.1 L, [place] % (Auto) 2.2, Eos % (Auto) 0.0, Baso % (Auto) 0.1, Absolute Neuts (auto) 18.4 H, Absolute Lymphs (auto) 0.41 L, Nucleated RBC % 0.1, Hypochromasia 2+ 06/04/21 07:40: Sodium 133 L, Potassium 4.3, Chloride 103, Carbon Dioxide 24.0, Anion Gap 6, BUN 57 H, Creatinine 2.13 H, Estim Creat Clear Calc 29.51, Est GFR (MDRD) Af Amer 39 L, Est GFR (MDRD) Non-Af 32 L, BUN/Creatinine Ratio 26.8 H, Glucose 245 H, Calcium 8.9 06/04/21 11:04: POC Glucose 265 H D/C Instructions Discharge Diet: No restrictions Discharge Activity: Return to Normal Activity Call your doctor if you observe: Fever of 101 or Higher, Shortness of breath, Fainting spells and Chest pain Meaningful Use Info Meaningful Use Diagnoses (Choose all that apply): None applicable Discharge Plan Admission Admit Date/Time: 05/31/21 19:34 Attending Provider: Jareth Bobo Primary Care Provider: Jonny Serrato Consulting Providers: Triston Andre Discharge Orders/Prescriptions Prescriptions: New doxycycline hyclate 100 mg capsule 100 mg PO BID Qty: 14 RF: 0 prednisone 20 mg tablet 40 mg PO DAILY Qty: 10 RF: 0 ferrous sulfate [FeroSul] 325 mg (65 mg iron) tablet 325 mg PO BID Qty: 60 RF: 0 Continued propranolol 80 MG tablet 80 mg PO BID RF: 0 amlodipine 2.5 MG tablet 2.5 mg PO DAILY RF: 0 famotidine 20 MG tablet 20 mg PO BID RF: 0 acetaminophen 325 MG tablet 650 mg PO Q4H PRN PRN (Reason: fever, pain) RF: 0 rivaroxaban 15 MG tablet 15 mg PO DINNER RF: 0 Lantus U-100 Insulin 100 unit/mL solution 18 unit SUBCUT QHS RF: 0 omeprazole 40 mg capsule,delayed release(DR/EC) 40 mg PO DAILY RF: 0 losartan 25 mg tablet 25 mg PO DAILY RF: 0 Brilinta 90 mg tablet 90 mg PO BID RF: 0 atorvastatin 40 mg Tablet 40 mg PO QHS Qty: 90 RF: 0 amiodarone 200 mg Tablet 200 mg PO DAILY Qty: 100 RF: 0 insulin lispro [Humalog U-100 Insulin] 100 unit/mL Solution 25 unit SUBCUT TIDCM RF: 0 ProAir HFA 90 mcg/actuation HFA aerosol inhaler 2 puff INHALATION Q6H PRN (Reason: Sob &/Or Wheezing) Qty: 8.5 RF: 6 Discontinued aspirin 81 MG tablet,chewable 81 mg PO DAILY@0800 RF: 0 amoxicillin-pot clavulanate [Augmentin] 500-125 mg tablet 1 tab PO Q12H Qty: 20 RF: 0 Referrals / Follow Up: Jonny Serrato MD [Primary Care Provider] - In 1 Week (For repeat CBC) Vlad Medrano DO [STAFF PHYSICIAN] - Within 2 Weeks (For outpatient colonoscopy and EGD for work-up of patient's iron deficiency anemia) Disposition Disposition (needs filled in before D/C Order can be placed): Home Health Service Charges/Coding Visit Charges Inpatient E&M: 10850 Disch Hosp
--- NOTE | 2021-06-04 11:57 | PCM.DC ---
Discharge Instructions Diet Discharge Diet: No restrictions Dressing / Incision Call your doctor if you observe: Fever of 101 or Higher, Shortness of breath, Fainting spells and Chest pain Follow Up Care Test Results: Test results from this visit will be discussed in further detail at your follow-up appointment, if applicable. Discharge Plan Admission Admit Date/Time: 05/31/21 19:34 Attending Provider: Jareth Bobo Primary Care Provider: Jonny Serrato Consulting Providers: Triston Andre Discharge Orders/Prescriptions Prescriptions: New doxycycline hyclate 100 mg capsule 100 mg PO BID Qty: 14 RF: 0 prednisone 20 mg tablet 40 mg PO DAILY Qty: 10 RF: 0 ferrous sulfate [FeroSul] 325 mg (65 mg iron) tablet 325 mg PO BID Qty: 60 RF: 0 Continued propranolol 80 MG tablet 80 mg PO BID RF: 0 amlodipine 2.5 MG tablet 2.5 mg PO DAILY RF: 0 famotidine 20 MG tablet 20 mg PO BID RF: 0 acetaminophen 325 MG tablet 650 mg PO Q4H PRN PRN (Reason: fever, pain) RF: 0 rivaroxaban 15 MG tablet 15 mg PO DINNER RF: 0 Lantus U-100 Insulin 100 unit/mL solution 18 unit SUBCUT QHS RF: 0 omeprazole 40 mg capsule,delayed release(DR/EC) 40 mg PO DAILY RF: 0 losartan 25 mg tablet 25 mg PO DAILY RF: 0 Brilinta 90 mg tablet 90 mg PO BID RF: 0 atorvastatin 40 mg Tablet 40 mg PO QHS Qty: 90 RF: 0 amiodarone 200 mg Tablet 200 mg PO DAILY Qty: 100 RF: 0 insulin lispro [Humalog U-100 Insulin] 100 unit/mL Solution 25 unit SUBCUT TIDCM RF: 0 ProAir HFA 90 mcg/actuation HFA aerosol inhaler 2 puff INHALATION Q6H PRN (Reason: Sob &/Or Wheezing) Qty: 8.5 RF: 6 Discontinued aspirin 81 MG tablet,chewable 81 mg PO DAILY@0800 RF: 0 amoxicillin-pot clavulanate [Augmentin] 500-125 mg tablet 1 tab PO Q12H Qty: 20 RF: 0 Referrals / Follow Up: Jonny Serrato MD [Primary Care Provider] - In 1 Week (For repeat CBC) Vlad Medrano DO [STAFF PHYSICIAN] - Within 2 Weeks (For outpatient colonoscopy and EGD for work-up of patient's iron deficiency anemia) Disposition Disposition (needs filled in before D/C Order can be placed): Home Health Service
[2021-06-04 13:40] VITALS: BP 110/60; PULSE 63; RESP 18; TEMP 36.7; O2SAT 94
--- NOTE | 2021-06-04 13:44 | PN.CC_ITS ---
Assessment & Plan Assessment/Plan (1) Exercise hypoxemia: (2) Interstitial lung disease: (3) Paroxysmal atrial fibrillation: (4) RENEE (obstructive sleep apnea): PLAN: RECOMMENDATIONS: 1. Await results of previously ordered outpatient work-up including myositis panel and AFB smear/cultures. 2. Wean supplemental oxygen to maintain saturations at or above 90%. 3. Await results of repeat echocardiogram. 4. Gentle diuresis as tolerated by hemodynamics and renal function. 5. Continue antimicrobials to complete treatment course. 6. Check stool guaiac and iron studies. 7. Continue to monitor H&H. Transfuse if hemoglobin drops below 7 g/dL. 8. Encourage incentive spirometer use and mobilize patient as tolerated. IMPRESSIONS: 1. Exertional hypoxemia in the setting of progressive lung disease The exact etiology for the patient's bilateral groundglass changes and exertional dyspnea is still under work-up. He did undergo recent bronchoscopy which did reveal bilateral MSSA on BAL. He is on appropriate antimicrobials. Prior autoimmune work-up was negative. Currently, myositis panel is still pending. AFB smear and cultures are also still pending. BNP was elevated at presentation. Therefore, the patient did receive IV Lasix. In addition to all of the aforementioned, the patient is anemic, which is also likely contributing to his dyspnea. At this time, I recommend that we continue his antimicrobials to complete a 7-day treatment course. Although amiodarone induced pulmonary toxicity is a possibility, the patient has been on the medication for quite some time and is on a low daily dose. Therefore, I do not feel that it is imperative to discontinue his amiodarone at the current time. However, this may be a consideration in the near future. Repeat echocardiogram will also be obtained to evaluate for the presence of pulmonary hypertension. 2. Anemia The patient has demonstrated an approximate 4 g drop in hemoglobin since the end of March 2021. This may also be certainly contributing to his perceived dyspnea. He is on a number of potential offending medications at his baseline including aspirin, Brilinta and Xarelto. He denies any overt signs of blood loss. Recommend checking stool guaiac and iron studies. Continue to monitor H&H and transfuse if hemoglobin drops below 7 g/dL. 3. Paroxysmal A. fib/PAD/renal artery stenosis/CKD/advanced age/diabetes mellitus Complicates care, management, recovery and prognosis. Rate is controlled at this time. Patient is on anticoagulation. This note was generated with Spotlight dictation software. It may contain incorrect words, spelling, and punctuation that were not noted in checking the note before signing. Subjective Subjective The patient was seen and examined at the bedside this morning. Events from the last 24 hours have been reviewed. The patient is currently afebrile, hemodynami rosalva stable and maintaining appropriate oxygen saturations on 3 L/min via nasal cannula. The patient is documented to be overall net -3.2 L for the hospital admission. He remains on antimicrobials and steroids. Hemoglobin remains stable at 7.9 g/dL. Objective Data Objective Data The patient's most recent lab work, culture data and imaging studies have all been personally reviewed. Vital Signs: Vital Signs Temp Pulse Resp BP Pulse Ox 98.0 F 63 18 110/60 94 06/04/21 13:40 06/04/21 13:40 06/04/21 13:40 06/04/21 13:40 06/04/21 13:40 Oxygen Flow Rate (L/min) [ 90 AMBULATING with Oxygen #3] Oxygen Flow Rate (L/min) [ 88 AMBULATING with Oxygen #2] Oxygen Flow Rate (L/min) [At 3 REST with Oxygen] Oxygen Flow Rate (L/min) [ 84 AMBULATING with Oxygen #1] Oxygen Flow Rate (L/min) [At 0 REST on Room Air] Oxygen Flow Rate (L/min) 3 Oxygen Delivery Method Nasal Cannula Weight: 75 kg Body Mass Index (BMI) 23.7 Intake & Output: Intake and Output for Last 24 Hours 06/02/21 06/03/21 06/04/21 23:59 23:59 23:59 Intake Total 600 / 600 460 / 460 Output Total 1500 / 1500 810 / 810 1750 / 1750 Balance -900 / -900 -810 / -810 -1290 / -1290 Lab / Micro Data Attestation: I reviewed the patient's lab results. Result Diagrams: 06/04/21 07:40 06/04/21 07:40 Labs: Laboratory Results - last 24 hr 06/03/21 05:44: Haptoglobin 247 06/03/21 15:56: POC Glucose 311 H 06/03/21 21:20: POC Glucose 265 H 06/04/21 06:28: POC Glucose 284 H 06/04/21 07:40: WBC 19.4 H, RBC 3.15 L, Hgb 7.9 L, Hct 26.2 L, MCV 83.2, MCH 25.1 L, MCHC 30.2 L, RDW Std Deviation 51.6 H, RDW Coeff of Rosa 17.2 H, Plt Count 416, MPV 9.2, Immature Gran % (Auto) 1.000 H, Neut % (Auto) 94.6 H, Lymph % (Auto) 2.1 L, [place] % (Auto) 2.2, Eos % (Auto) 0.0, Baso % (Auto) 0.1, Absolute Neuts (auto) 18.4 H, Absolute Lymphs (auto) 0.41 L, Nucleated RBC % 0.1, Hypochromasia 2+ 06/04/21 07:40: Sodium 133 L, Potassium 4.3, Chloride 103, Carbon Dioxide 24.0, Anion Gap 6, BUN 57 H, Creatinine 2.13 H, Estim Creat Clear Calc 29.51, Est GFR (MDRD) Af Amer 39 L, Est GFR (MDRD) Non-Af 32 L, BUN/Creatinine Ratio 26.8 H, Glucose 245 H, Calcium 8.9 06/04/21 11:04: POC Glucose 265 H Physical Exam Const alert, oriented x3, no apparent distress, average body habitus and healthy appearing Constitutional Narrative: Older white male sitting up in bed, appears younger than stated age, nontoxic, nursing at bedside, appears comfortable Exam Limitations: no limitations HEENT head/scalp atraumatic and moist oral mucous membranes Head and Scalp: normocephalic Resp normal respiratory effort, no retractions and no use of accessory muscles Resp Narrative: Marked Velcro sounding crackles at right lung base Auscultation: crackles; Negative for rales, rhonchi or wheezes Cardio regular rate, S1 normal heart sound, S2 normal heart sound, no murmurs, no rub, no gallops, no clicks and no JVD Cardio Narrative: Irregular rhythm GI normal to inspection, nondistended, normoactive bowel sounds, soft to palpation, non-tender and non-distended Extremity no clubbing, cyanosis or edema Peripheral Pulses: Yes pulses 2+ throughout Skin no rashes or lesions noted, no wounds, skin turgor normal, no jaundice, no petechiae and no mottling Neuro oriented x3, moves all extremities and no focal motor deficits Sensorium / Orientation: awake and alert Speech: speech normal Psych affect normal Charges/Coding Visit Charges Inpatient E&M: 53284 Subs Hosp L2
--- NOTE | 2021-06-05 14:46 | CASEMGMT ---
RN CM Discharge Follow Up Phone Call: ELLE: Rashad Strata: 4 Call Date: 06/05/21 Discharge Date: 06/04/21 Time of Call:1445 Duration:<1 min Admitting Dx:acute on chronic hypoxic resp failure ANGIE CONTE attempted to complete follow up phone call after recent hospitalization. Reached an unidentified voicemail, no message left.
== END 2021-06-04 14:00 | disposition home health service (06) | DRG 196 ==
LOC: ED 18:09 → MS3 20:23
PROVIDERS: Internal Medicine; Internal Medicine Critical Care Medicine; Admitting Provider Internal Medicine; Emergency Provider Emergency Medicine; PCP Internal Medicine; Visit Provider Internal Medicine
DX: J84.9 Interstitial pulmonary disease, unspecified (principal); J15.211 Pneumonia due to Methicillin susceptible Staphylococcus aureus; J44.0 Chronic obstructive pulmonary disease with (acute) lower respiratory infection; R09.02 Hypoxemia; J84.10 Pulmonary fibrosis, unspecified; D50.9 Iron deficiency anemia, unspecified; E11.22 Type 2 diabetes mellitus with diabetic chronic kidney disease; I49.3 Ventricular premature depolarization; E11.51 Type 2 diabetes mellitus with diabetic peripheral angiopathy without gangrene; N18.31 Chronic kidney disease, stage 3a; E53.8 Deficiency of other specified B group vitamins; E78.5 Hyperlipidemia, unspecified; F32.9 Major depressive disorder, single episode, unspecified; F41.9 Anxiety disorder, unspecified; G25.81 Restless legs syndrome; G43.909 Migraine, unspecified, not intractable, without status migrainosus; G47.33 Obstructive sleep apnea (adult) (pediatric); I12.9 Hypertensive chronic kidney disease with stage 1 through stage 4 chronic kidney disease, or unspecified chronic kidney disease; I25.10 Atherosclerotic heart disease of native coronary artery without angina pectoris; I25.2 Old myocardial infarction; I48.0 Paroxysmal atrial fibrillation; I71.2 Thoracic aortic aneurysm, without rupture; I70.1 Atherosclerosis of renal artery; K21.9 Gastro-esophageal reflux disease without esophagitis; M19.90 Unspecified osteoarthritis, unspecified site; Z86.73 Personal history of transient ischemic attack (TIA), and cerebral infarction without residual deficits; Z87.442 Personal history of urinary calculi; Z95.5 Presence of coronary angioplasty implant and graft; Z79.4 Long term (current) use of insulin; Z79.01 Long term (current) use of anticoagulants; Z79.899 Other long term (current) drug therapy; Z87.891 Personal history of nicotine dependence
CPT/HCPCS: 36415; 71045; 80048; 80053; 82607; 82728; 82746; 82962; 83010; 83540; 83550; 83880; 84145; 84484; 85025; 85045; 93005; 93306; 94762; 99284; A4216; J1940

== ENCOUNTER 2021-08-21 09:40 | Inpatient (IN) | payer MEDICARE, OTHER, SELFPAY ==
[2021-08-21] VITALS (10 sets, daily range): BP systolic 114–157; BP diastolic 52–80; PULSE 71–107; RESP 18–24; TEMP 36.9–38.7; O2SAT 87–97; BMI 24.0; BMI 22.7
--- NOTE | 2021-08-21 09:58 | EKG12_ITS ---
Test Reason : ALMA Blood Pressure : / mmHG Vent. Rate : 076 BPM Atrial Rate : 076 BPM P-R Int : 156 ms QRS Dur : 076 ms QT Int : 416 ms P-R-T Axes : 057 -33 031 degrees QTc Int : 468 ms Normal sinus rhythm Left axis deviation Inferior infarct , age undetermined , cannot be excluded Abnormal ECG Confirmed by CARY MERAZ, RYLAN ([id number]), marketing editor GENARO ISRAEL ([id number]) on 08/22/2021 1:31:14 PM Referred By: MIHIR Confirmed By:RYLAN TOWNSEND MD
--- NOTE | 2021-08-21 09:58 | RAD_ITS ---
STUDY: X-RAY CHEST REASON FOR EXAM: Male, 76 years old. Fever, cough chills bilateral rales TECHNIQUE: Single AP portable view of the chest. COMPARISON: Comparison is made with prior study dated 05/31/2021. FINDINGS: Stable elevation of the right hemidiaphragm. Since prior study, there has been progressive infiltrate in the peripheral aspect of the right upper lobe. Pneumonia should be ruled out. There is no demonstrated pleural abnormality. Normal size heart. Normal mediastinum and cari. Normal visualized pulmonary arteries. Normal visualized aortic arch and descending thoracic aorta. There are diffuse degenerative changes of the visualized thoracic spine. Normal visualized ribs, clavicles, and shoulders. There is no demonstrated abnormality of the visualized soft tissue structures of the upper abdomen. RAD/Chest 1 View (Portable) IMPRESSION: Progressive infiltrate in the peripheral lateral aspect of the right upper lobe. Pulmonary infiltrate should be ruled out. Stable elevation of the right hemidiaphragm. Electronically Signed: Maxi Austin MD at 10:46 EST , Service support ,
[2021-08-21 10:13] LABS: Absolute Lymphocyte Count 1.27 X10^3/uL (0.83-4.51); Basophil# 0.02 X10^3/uL; Basophil% 0.4 % (0-1); Eosinophil# 0.03 X10^3/uL; Eosinophils% 0.6 % (0-5); Hematocrit 43.1 % (40-54); Hemoglobin 13.7 g/dL (13.0-16.5); Lymphocyte # 1.27 X10^3/ul (0.83-4.51); Lymphocyte % 26.7 % (19-41); Mean Corp Hgb Conc 31.8 g/dL (32-36); Mean Corpuscular Hgb 28.7 pg (27.0-32.0); Mean Corpuscular Volume 90.4 fL (80-94); Monocyte# 0.41 X10^3/uL; Monocyte% 8.6 % (0-10); NRBC Flagged by Analyzer 0 % (0-5); Neutrophil % 63.3 % (47-70); Platelet Count 107 K/mm3 (150-450); RBC Distribution Width CV 16.1 % (11.6-14.6); RBC Distribution Width SD 52.5 fl (35.1-43.9); Red Blood Count 4.77 M/mm3 (4.6-6.2); White Blood Count 4.8 K/mm3 (4.4-11.0)
--- NOTE | 2021-08-21 10:22 | EDS_ITS ---
HPI History of Present Illness Chief Complaint: General Illness Detail of Chief Complaint: Fever, cough, dry heaves x1 week Informant: patient and spouse/S.O. Onset/Context/Timing Onset: Weeks Context: Sudden Onset Timing: Intermittent Quality: Generalized and respiratory history of Mycobacterium AVM complex Location: Pulmonary infection on multiple antibiotics Current Severity: Mild Maximum Severity: Severe Worsened by: Uncertain Relieved by: Nothing Associated Symptoms Associated Symptoms: Dry heaves Narrative Narrative: Patient is a 74-year-old male with multiple medical problems on no immunosuppressive agents who was diagnosed by bronchoscopy with Mycobacterium avium complex. He is on triple antibiotics presently. He has had temperatures documented to 103.1. He feels weak. states he shock this morning. He does report lightheadedness when he stands. He denies exposure to anyone's been ill. states is been going on since February/March. Patient complains of bifrontal discomfort, he denies ocular, visual or auditory symptoms. He does report congestion, postnasal drainage and sore throat. He does report a cough. He does not know the color of his sputum since he swallows it. He denies abdominal pain. He does report nausea with dry heaves. He denies diarrhea. He denies dark or black-colored stool. He denies urologic symptoms. He denies rash. He denies myalgias or arthralgias. Prior similar symptoms: No Recent Illness/Hospitalization: Yes [facility] Medical History Alcohol use Anxiety Arthritis Back pain BiPAP (biphasic positive airway pressure) dependence Cardiology follow-up encounter Chest pain CKD (chronic kidney disease) stage 3, GFR 30-59 ml/min CKD (chronic kidney disease) stage 4, GFR 15-29 ml/min COPD (chronic obstructive pulmonary disease) Coronary artery disease CPAP (continuous positive airway pressure) dependence CVA (cerebral vascular accident) Depression Dietary restriction DM2 (diabetes mellitus, type 2) Emphysema lung Essential (primary) hypertension Former smoker Gastric reflux History of echocardiogram History of heart attack History of irregular heartbeat History of non-ST elevation myocardial infarction (NSTEMI) (04/06/21) History of pain when walking History of stress test Hyperlipemia Insulin dependent diabetes mellitus Kidney stone on right side Leg cramps Loss of hearing Low iron Migraines Myocardial infarct Nicotine dependence, cigarettes, in remission Non-tuberculous mycobacterial pneumonia RENEE (obstructive sleep apnea) PAD (peripheral artery disease) Paroxysmal atrial fibrillation Pulmonary nodule Renal artery stenosis Restless legs Shortness of breath on exertion Syncope Thoracic aortic aneurysm TIA (transient ischemic attack) (~09/13/09) Vitamin B12 deficiency Wears glasses Home Medications amlodipine 2.5 mg PO DAILY 05/15/17 [History Last Taken 05/31/21] propranolol 80 mg PO TID 05/15/17 [History Last Taken 05/31/21] acetaminophen 650 mg PO Q4H PRN PRN tab 05/17/17 [Rx Last Taken Unknown] rivaroxaban 15 mg PO DINNER 05/22/19 [History Last Taken 05/30/21] Lantus U-100 Insulin 18 unit SUBCUT QHS 03/28/21 [History Last Taken 05/30/21] losartan 25 mg PO DAILY 03/28/21 [History Last Taken 05/31/21] omeprazole 40 mg PO DAILY 03/28/21 [History Last Taken 05/31/21] atorvastatin 40 mg PO QHS #90 tab 04/08/21 [Rx Last Taken 05/30/21] albuterol sulfate 90 mcg/actuation aerosol inhaler 2 puff INHALATION Q6H PRN #8.5 g 05/09/21 [Rx Last Taken 05/30/21] insulin lispro [Humalog U-100 Insulin] 25 unit SUBCUT TIDCM 05/15/21 [History Last Taken 05/31/21] ferrous sulfate [FeroSul] 325 mg PO BID #60 tab 06/04/21 [Rx Last Taken Unknown] azithromycin 500 mg tablet 500 mg PO MOWEFR 07/21/21 [History Last Taken Unknown] ethambutol 400 mg tablet 1,600 mg PO MOTUWE 07/21/21 [History Last Taken Unknown] rifampin 300 mg capsule 600 mg PO DAILY 07/21/21 [History Last Taken Unknown] ticagrelor 90 mg PO BID 08/21/21 [History Last Taken Unknown] Allergy/AdvReac Type Severity Reaction Status Date / Time hydromorphone [From Dilaudid] Allergy Severe Unknown Verified 08/21/21 09:55 melon AdvReac Severe Unknown Verified 08/21/21 09:55 promethazine [From Phenergan] AdvReac Severe Unknown Verified 08/21/21 09:55 Opioids - Morphine Analogues AdvReac Vomiting Verified 08/21/21 09:55 Family History Father Cirrhosis Mother Cancer lung Surgical History History of cardiac catheterization (04/07/21) History of carpal tunnel release History of coronary artery stent placement (08/28/20) History of heart artery stent History of inguinal hernia repair Hx of lithotripsy Social History household members: spouse and children housing: house Smoking Status: Former smoker Tobacco: How many years used: 30 how long ago did patient quit smokin, 2ppd second hand exposure: Yes substance use type: does not use ROS ROS ED Constitutional Constitutional ED: Reports chills, fever(s) and sweats; Denies weight loss Eyes Eyes: Denies blurry vision, change in vision or diplopia ENT ENT ED: Reports rhinorrhea and sore throat; Denies ear pain Cardiovascular Cardiovascular: Denies chest pain, orthopnea, palpitations, paroxysmal nocturnal dyspnea or racing heartbeat Respiratory/Chest Respiratory/Chest: Reports cough, dyspnea, dyspnea on exertion and sputum; Denies orthopnea or paroxysmal nocturnal dyspnea Gastrointestinal Gastrointestinal: Reports abdominal pain, nausea and vomiting; Denies constipation, diarrhea or melena Genitourinary Genitourinary ED: Denies dysuria, hematuria or urinary frequency Musculoskeletal Musculoskeletal: Denies arthralgias, myalgias or neck pain Integumentary Denies rash Neurologic Neurologic: Reports headache(s) and weakness; Denies paresthesias Endocrine Endocrinology: Denies polydipsia, polyphagia or polyuria EXAM Physical Exam Const Vital Signs: 08/21/21 09:43 08/21/21 09:45 08/21/21 09:46 Temperature 98.5 F 98.5 F Temperature Source Oral Oral Pulse Rate 81 84 Respiratory Rate 24 H 24 H Respiratory Effort Short of Breath Labored Respiratory Pattern Tachypnea Blood Pressure 157/80 H 157/80 H Blood Pressure Mean 105 105 Pulse Ox 87 94 Oxygen Delivery Method Room Air Nasal Cannula Oxygen Flow Rate (L/min) 2 08/21/21 10:04 08/21/21 10:05 08/21/21 10:31 Temperature 98.7 F Temperature Source Temporal Pulse Rate 107 H Respiratory Rate 20 H Respiratory Effort Respiratory Pattern Blood Pressure 147/54 H Blood Pressure Mean 85 Pulse Ox 96 93 Oxygen Delivery Method Nasal Cannula Nasal Cannula Oxygen Flow Rate (L/min) 2 4 08/21/21 12:09 08/21/21 14:49 Temperature 101.7 F H 99.3 F H Temperature Source Temporal Temporal Pulse Rate 80 71 Respiratory Rate 18 18 Respiratory Effort Respiratory Pattern Blood Pressure 130/63 H 114/61 Blood Pressure Mean 85 78 Pulse Ox 97 97 Oxygen Delivery Method Nasal Cannula Nasal Cannula Oxygen Flow Rate (L/min) 2 2 Positive well nourished and well developed General Appearance ED: well developed and other Patient has been on oxygen for months. Not surprised he is hypoxic without oxygen ; Negative for cyanotic, diaphoretic, NAD or pallor HEENT Reports TM's clear and dry mucous membranes; Denies moist mucous membranes Negative for trauma or tenderness Tympanic Membrane ED: Yes TM's clear Mouth ED: Yes dry mucous membranes Mouth: dry mucous membranes Eyes PERRL and EOMs intact bilaterally General Eye ED: Negative for pale conjunctiva or scleral icterus Neck no lymphadenopathy, supple and no JVD Resp normal respiratory effort and No clear to auscultation bilaterally Effort and Inspection: Negative for retractions or pain with movement Auscultation: rales bilateral lower and diminished lung sounds; Negative for wheezes Cardio regular rate, regular rhythm, S1 normal heart sound, S2 normal heart sound and no murmurs GI normal to inspection, nondistended, normoactive bowel sounds, non-tender and non-distended Palpation: soft Back/Spine no CVA tenderness Cervical Spine: Negative for cervical spine tenderness Thoracic Spine / Upper Back: Negative for thoracic spinal tenderness or paraspinal muscle tenderness Extremity normal to inspection General Extremety ED: Negative for edema or tenderness General Extremity: Negative for edema Neuro oriented x3, CN's II-XII intact bilaterally and no sensory deficits noted Sensorium / Orientation: Negative for alert Motor Exam: general weakness Psych mental status grossly normal Skin No no rashes or lesions noted and no wounds Skin Narrative: Patient appears mottled with delayed capillary refill. General Skin Exam: Negative for jaundice or pallor MDM MDM MDM Narrative Medical decision making narrative: Patient with history of Mycobacterium avium complex. He is on multiple antibiotics. Need to rule out viral infection i.e. influenza and Covid. Since he appears mottled obtain appropriate blood work for sepsis work-up. Sepsis order set was initiated. Since he is on triple antibiotic coverage antibiotics were not started and because there is concern for Covid or influenza. He was not vaccinated for influenza. Case was initially discussed with Dr. Triston Andre. He recommended I speak with Dr. Derrick Morales who has been following this patient. Dr. Morales was made aware of his findings and positive Covid test. He recommended Zosyn and admission to the hospital. Hospitalist been paged for admission. Dr. Nicolas Gordon infectious disease expert at [facility] has been managing/treating his case for Mycobacterium AVM complex. With new infiltrate Dr. Morales recommended Zosyn and treat for Covid. He will receive a dose of Decadron. Lab Data Attestation: I reviewed the patient's lab results. Lab results narrative: White count and H&H are unremarkable. Comprehensive metabolic panel is remarkable an elevated AST of 61 and alk phos of 142. UA is positive for night right leukoesterase occult blood and ketones. However there are no RBCs, WBCs or bacteria Labs: Laboratory Results - last 24 hr 08/21/21 08/21/21 08/21/21 09:52 09:52 09:52 WBC 4.8 RBC 4.77 Hgb 13.7 Hct 43.1 MCV 90.4 MCH 28.7 MCHC 31.8 L RDW Std Deviation 52.5 H RDW Coeff of Rosa 16.1 H Plt Count 107 L MPV 10.0 Immature Gran % (Auto) 0.400 Neut % (Auto) 63.3 Lymph % (Auto) 26.7 [place] % (Auto) 8.6 Eos % (Auto) 0.6 Baso % (Auto) 0.4 Absolute Neuts (auto) 3.0 Absolute Lymphs (auto) 1.27 Nucleated RBC % 0 PT INR APTT Sodium Cancelled Potassium Cancelled Chloride Cancelled Carbon Dioxide Cancelled Anion Gap Cancelled BUN Cancelled Creatinine Cancelled Estim Creat Clear Calc Cancelled Est GFR (MDRD) Af Amer Cancelled Est GFR (MDRD) Non-Af Cancelled BUN/Creatinine Ratio Cancelled Glucose Cancelled Lactic Acid Cancelled Calcium Cancelled Total Bilirubin Cancelled AST Cancelled ALT Cancelled Alkaline Phosphatase Cancelled Total Protein Cancelled Albumin Cancelled Globulin Cancelled Albumin/Globulin Ratio Cancelled Urine Color Urine Clarity Urine pH Ur Specific [place] Urine Protein Urine Glucose (UA) Urine Ketones Urine Occult Blood Urine Nitrite Urine Bilirubin Urine Urobilinogen Ur Leukocyte Esterase Urine RBC Urine WBC Ur Squamous Epith Cells Urine Bacteria Fine Granular Casts Urine Mucus 08/21/21 08/21/21 08/21/21 10:20 10:45 11:53 WBC RBC Hgb Hct MCV MCH MCHC RDW Std Deviation RDW Coeff of Rosa Plt Count MPV Immature Gran % (Auto) Neut % (Auto) Lymph % (Auto) [place] % (Auto) Eos % (Auto) Baso % (Auto) Absolute Neuts (auto) Absolute Lymphs (auto) Nucleated RBC % PT 13.5 INR 1.1 APTT 28.7 Sodium 136 Potassium 4.5 Chloride 101 Carbon Dioxide 23.0 Anion Gap 12 BUN 25 H Creatinine 1.92 H Estim Creat Clear Calc 32.74 Est GFR (MDRD) Af Amer 44 L Est GFR (MDRD) Non-Af 36 L BUN/Creatinine Ratio 13.0 Glucose 190 H Lactic Acid Calcium 8.9 Total Bilirubin 1.00 AST 61 H ALT 24 Alkaline Phosphatase 142 H Total Protein 6.5 Albumin 2.3 L Globulin 4.2 Albumin/Globulin Ratio 0.5 L Urine Color SEE COMMENT BELOW Urine Clarity Clear Urine pH 5.0 Ur Specific [place] 1.025 Urine Protein 500 H Urine Glucose (UA) Normal Urine Ketones 15 H Urine Occult Blood 150 H Urine Nitrite Positive H Urine Bilirubin 3 H Urine Urobilinogen 4 H Ur Leukocyte Esterase 25 H Urine RBC 0 SEEN Urine WBC 0 SEEN Ur Squamous Epith Cells 0-5 SEEN Urine Bacteria 0 SEEN Fine Granular Casts 0-5 SEEN Urine Mucus 0 SEEN 08/21/21 11:53 WBC RBC Hgb Hct MCV MCH MCHC RDW Std Deviation RDW Coeff of Rosa Plt Count MPV Immature Gran % (Auto) Neut % (Auto) Lymph % (Auto) [place] % (Auto) Eos % (Auto) Baso % (Auto) Absolute Neuts (auto) Absolute Lymphs (auto) Nucleated RBC % PT INR APTT Sodium Potassium Chloride Carbon Dioxide Anion Gap BUN Creatinine Estim Creat Clear Calc Est GFR (MDRD) Af Amer Est GFR (MDRD) Non-Af BUN/Creatinine Ratio Glucose Lactic Acid 2.2 H* Calcium Total Bilirubin AST ALT Alkaline Phosphatase Total Protein Albumin Globulin Albumin/Globulin Ratio Urine Color Urine Clarity Urine pH Ur Specific [place] Urine Protein Urine Glucose (UA) Urine Ketones Urine Occult Blood Urine Nitrite Urine Bilirubin Urine Urobilinogen Ur Leukocyte Esterase Urine RBC Urine WBC Ur Squamous Epith Cells Urine Bacteria Fine Granular Casts Urine Mucus Radiography Diagnostic Testing: Clinical Impression(s) from Imaging Studies Chest X-Ray 08/21/21 09:58 IMPRESSION: Progressive infiltrate in the peripheral lateral aspect of the right upper lobe. Pulmonary infiltrate should be ruled out. Stable elevation of the right hemidiaphragm. Electronically Signed: Maxi Austin MD at 10:46 EST , Service support , EKG Initial EKG: Attestation: I personally reviewed and interpreted this EKG as follows: Interpretation: Sinus Rhythm (Normal sinus rhythm rate of 76. NC intervals 156 ms. QS duration 76 ms. QT interval 416 ms. [place] to the left. There is artifact which computer is reading as inferior infarct.) Discharge Plan Dx/Rx/DC Orders Clinical Impression: Infiltrate of upper lobe of right lung present on imaging study, Mycobacterium avium-intracellulare complex, Pneumonia due to 2019-nCoV, Chronic respiratory failure with hypoxia Disposition Disposition: Acute Care [facility]
[2021-08-21 10:40] LABS: Bacteria 0 SEEN /hpf (None Seen); Mucous, Urine 0 SEEN /hpf (<or=2+); Red Blood Cells-Urine 0 SEEN /hpf (0-5); White Blood Cells 0 SEEN /hpf (0-5)
[2021-08-21 10:52] LABS: International Normalized Ratio 1.1; Prothrombin Time (Protime)PT. 13.5 SECONDS (11.7-14.9)
[2021-08-21 10:52] LABS: Glucose, Dipstick Normal (Normal); Ketone-Dipstick 15 mg/dl (Negative); Leukocyte Esterase-Dipstick 25 /ul (Negative); Nitrite-Dipstick Positive (Negative); Occult Blood-Urine 150 /ul (Negative); Protein-Dipstick 500 mg/dl (Negative); Specific Gravity, Urine 1.025 (1.002-1.030); Urine Clarity Clear (Clear); Urine Urobilinogen 4 mg/dl (Normal)
[2021-08-21 10:53] LABS: Color, Urine SEE COMMENT BELOW (Yellow); Urine Bilirubin Dipstick 3 mg/dL (Negative)
[2021-08-21 10:53] LABS: Partial Thromboplast Time 28.7 Seconds (24.1-36.2)
[2021-08-21 10:57] LABS: Fine Granular Cast- Urine 0-5 SEEN /lpf (0-5); Squamous Epithelial Cells - UA 0-5 SEEN /hpf (0-5)
[2021-08-21 11:11] LABS: ALB/GLOB Ratio 0.5 RATIO (0.9-2.4); AST(SGOT) 61 U/L (15-37); Alanine Aminotransfer ALT/SGPT 24 U/L (16-61); Albumin, Serum 2.3 g/dL (3.2-5.0); Alkaline Phosphatase 142 U/L (45-117); Anion Gap 12 (5-15); BUN 25 mg/dL (7-18); Calcium,Total 8.9 mg/dL (8.5-10.1); Chloride 101 mmol/L (98-107); Creatinine, Serum 1.92 mg/dL (0.70-1.30); EST Glomerular Filtration Rate 36 mL/min (>60); Est Glom Filt Rate - Afr Amer 44 mL/min (>60); Estimated Creatinine Clearance 32.74 ml/min; Globulin 4.2 g/dL (2.2-4.2); Glucose 190 mg/dL (74-106); Potassium 4.5 mmol/L (3.5-5.1); Protein, Total 6.5 g/dL (6.4-8.2); Sodium Level 136 mmol/L (136-145)
[2021-08-21] MEDS: Acetaminophen 325 MG Tablet 650 MG PO ×2 (12:15→22:14)
[2021-08-21 12:43] LABS: Lactic Acid 2.2 mmol/L (0.4-1.9)
--- NOTE | 2021-08-21 15:30 | CT_ITS ---
STUDY: CT Chest W/O Contrast Injection 08/21/2021 4:34 PM REASON FOR EXAM: Male, 76 years old. Infection Individualized dose optimization techniques were used for this CT. TECHNIQUE: Transaxial imaging was performed withoutIV contrast material. COMPARISON: 05.07.21. FINDINGS: There are degenerative changes of the shoulders. There is no pneumothorax. There is no demonstrated pleural abnormality. Bilateral areas of interstitial increased lung markings. Left markings are stable. However, there is slightly increased density in the right upper lobe infiltrate. There is an elevated right hemidiaphragm. There are calcifications of the coronary arteries. There are multiple small lymph nodes within the mediastinum, which are normal in size and morphology most compatible with reactive lymph hyperplasia. Normal hilar regions. Normal pulmonary arteries. There is atherosclerotic calcification of the aortic arch with tortuosity and elongation of the aortic arch and descending thoracic aorta. There are multi-level degenerative changes of the thoracic spine. There are no acute findings of the upper abdomen. CT/Chest without Contrast IMPRESSION: Right upper lobe pneumonia. Electronically Signed: Jimmy Chris MD at 16:49 EST , Service support ,
[2021-08-21 15:57] LABS: Reflex Lactate? Y
--- NOTE | 2021-08-21 17:06 | PCS.PANDOC ---
PANDEMIC DOCUMENTATION INITIATED: Date: 04/28/2021 Time: 190
[2021-08-21 17:16] LABS: Lactic Acid 1.5 mmol/L (0.4-1.9)
--- NOTE | 2021-08-21 17:33 | PCM.HP.STD ---
HPI - General General Date of Admission: 08/21/21 HPI Narrative SAL SPENCER, is a 76 M who [facility] to the [facility] on 08/21/2021 with a chief complaint of fever, cough, and dry heaves x1 week. He has a complicated past medical history including MAC for which she sees Dr. Adrian at [facility] and is currently being treated with a azithromycin, ethambutol, and rifampin. He has had fever with a documented T-max of 103. He feels weak and states he is having chills. He has had some lightheadedness with standing. He has had some of these symptoms since February or March but the patient states he has been worse in the last 1 to 2 weeks. He also complains of mild headache with some nausea and vomiting intermittently but is currently asking to eat. He denies any diarrhea or constipation. He said some myalgias but no arthralgias. On exam he looks ill but nontoxic. His T-max in the emergency department was 101.7. His vital signs are otherwise stable and he is at 97% on 2 L nasal cannula. He tells me his baseline is 3 L at rest and 5 L with ambulation. His CT is overall unremarkable other than a mild thrombocytopenia. His serum BUN and creatinine are elevated but appear to be at his baseline at 25 and 1.92. His lactic acid is 1.5. His AST is mildly elevated at 61 but his ALT is normal. His urine is not consistent with infection but is consistent with dehydration. His chest x-ray shows a possible increased right upper lobe infiltrate. Given the concern for the right upper lobe infiltrate the case was discussed with his primary risk management internship who requested the patient be given Zosyn. Rapid Covid test was performed and was positive. [facility] Medical History Alcohol use Anxiety Arthritis Back pain BiPAP (biphasic positive airway pressure) dependence Cardiology follow-up encounter Chest pain Chronic respiratory failure with hypoxia CKD (chronic kidney disease) stage 3, GFR 30-59 ml/min CKD (chronic kidney disease) stage 4, GFR 15-29 ml/min COPD (chronic obstructive pulmonary disease) Coronary artery disease CPAP (continuous positive airway pressure) dependence CVA (cerebral vascular accident) Depression Dietary restriction DM2 (diabetes mellitus, type 2) Emphysema lung Essential (primary) hypertension Former smoker Gastric reflux History of echocardiogram History of heart attack History of irregular heartbeat History of non-ST elevation myocardial infarction (NSTEMI) (04/06/21) History of pain when walking History of stress test Hyperlipemia Insulin dependent diabetes mellitus Kidney stone on right side Leg cramps Loss of hearing Low iron Migraines Myocardial infarct Nicotine dependence, cigarettes, in remission Non-tuberculous mycobacterial pneumonia RENEE (obstructive sleep apnea) PAD (peripheral artery disease) Paroxysmal atrial fibrillation Pulmonary nodule Renal artery stenosis Restless legs Shortness of breath on exertion Syncope Thoracic aortic aneurysm TIA (transient ischemic attack) (~09/13/09) Vitamin B12 deficiency Wears glasses Home Medications amlodipine 2.5 mg PO DAILY 05/15/17 [History Last Taken 05/31/21] propranolol 80 mg PO TID 05/15/17 [History Last Taken 05/31/21] acetaminophen 650 mg PO Q4H PRN PRN tab 05/17/17 [Rx Last Taken Unknown] rivaroxaban 15 mg PO DINNER 05/22/19 [History Last Taken 05/30/21] Lantus U-100 Insulin 18 unit SUBCUT QHS 03/28/21 [History Last Taken 05/30/21] losartan 25 mg PO DAILY 03/28/21 [History Last Taken 05/31/21] omeprazole 40 mg PO DAILY 03/28/21 [History Last Taken 05/31/21] atorvastatin 40 mg PO QHS #90 tab 04/08/21 [Rx Last Taken 05/30/21] albuterol sulfate 90 mcg/actuation aerosol inhaler 2 puff INHALATION Q6H PRN #8.5 g 05/09/21 [Rx Last Taken 05/30/21] insulin lispro [Humalog U-100 Insulin] 25 unit SUBCUT TIDCM 05/15/21 [History Last Taken 05/31/21] ferrous sulfate [FeroSul] 325 mg PO BID #60 tab 06/04/21 [Rx Last Taken Unknown] azithromycin 500 mg tablet 500 mg PO MOWEFR 07/21/21 [History Last Taken Unknown] ethambutol 400 mg tablet 1,600 mg PO MOTUWE 07/21/21 [History Last Taken Unknown] rifampin 300 mg capsule 600 mg PO DAILY 07/21/21 [History Last Taken Unknown] ticagrelor 90 mg PO BID 08/21/21 [History Last Taken Unknown] Allergy/AdvReac Type Severity Reaction Status Date / Time hydromorphone [From Dilaudid] Allergy Severe Vomiting Verified 08/21/21 17:10 melon AdvReac Severe throat Verified 08/21/21 17:10 swells and itchy promethazine [From Phenergan] AdvReac Severe Unknown Verified 08/21/21 09:55 Opioids - Morphine Analogues AdvReac Vomiting Verified 08/21/21 09:55 Family History Father Cirrhosis Mother Cancer lung Surgical History History of cardiac catheterization (04/07/21) History of carpal tunnel release History of coronary artery stent placement (08/28/20) History of heart artery stent History of inguinal hernia repair Hx of lithotripsy Social History household members: spouse and children housing: house Smoking Status: Former smoker Tobacco: How many years used: 30 how long ago did patient quit smokin, 2ppd second hand exposure: Yes substance use type: does not use ROS Constitutional Constitutional: Reports chills, fatigue, fever(s), malaise and weakness Eyes Eyes: Denies blurry vision, change in eye color, change in vision, discharge from eye(s), double vision, erythema, eye pain, loss of vision or other ENT HEENT: Denies abnormal hearing, dysphagia, ear pain, epistaxis, headache(s), hearing loss, nasal congestion, nasal discharge, post nasal drip, sinus pressure, sore throat or other Cardiovascular Cardiovascular: Denies chest pain, claudication, dyspnea on exertion, edema, lightheadedness, orthopnea, palpitations, paroxysmal nocturnal dyspnea, rapid heart rate, syncope or other Respiratory/Chest Respiratory/Chest: Reports cough, dyspnea and shortness of breath with exertion; Denies excessive phlegm production, hemoptysis, productive cough, shortness of breath at rest, wheezing or other Gastrointestinal Gastrointestinal: Reports nausea and vomiting; Denies abdominal pain, coffee ground emesis, constipation, diarrhea, dyspepsia, hematemesis, hematochezia, loose stools, melena or other Genitourinary Genitourinary: Denies burning urination, difficulty urinating, dysuria, hematuria, nocturia, urinary frequency, urinary hesitancy, urinary incontinence, urinary urgency or other Musculoskeletal Musculoskeletal: Reports myalgias; Denies arthralgias, back pain, joint pain, joint stiffness, joint swelling, neck pain or other Neurologic Neurologic: Denies abnormal gait, abnormal speech, confusion, disequilibrium, dizziness, focal weakness, headache(s), numbness, paresthesias, seizure-like activity, seizures, syncope, tingling, tremor(s) or other Psychiatric Psychiatric: Denies anxiety, depression, homicidal ideation, suicidal ideation or other Endocrine Endocrinology: Denies change in body appearance, cold intolerance, excessive sweating, heat intolerance, polydipsia, polyuria or other Hematologic/Lymphatic Hematologic/Lymphatic: Denies anemia, easy bleeding, easy bruising, lymphadenopathy or other Allergic/Immunologic Allergic/Immunologic: Denies rhinitis, hives, eczemia, asthma or other Vital Signs Vital Signs Vital Signs: 08/21/21 09:43 08/21/21 09:45 08/21/21 09:46 Temperature 98.5 F 98.5 F Temperature Source Oral Oral Pulse Rate 81 84 Respiratory Rate 24 H 24 H Respiratory Effort Short of Breath Labored Respiratory Pattern Tachypnea Blood Pressure 157/80 H 157/80 H Blood Pressure Mean 105 105 Pulse Ox 87 94 Oxygen Delivery Method Room Air Nasal Cannula Oxygen Flow Rate (L/min) 2 08/21/21 10:04 08/21/21 10:05 08/21/21 10:31 Temperature 98.7 F Temperature Source Temporal Pulse Rate 107 H Respiratory Rate 20 H Respiratory Effort Respiratory Pattern Blood Pressure 147/54 H Blood Pressure Mean 85 Pulse Ox 96 93 Oxygen Delivery Method Nasal Cannula Nasal Cannula Oxygen Flow Rate (L/min) 2 4 08/21/21 12:09 08/21/21 14:49 08/21/21 15:21 Temperature 101.7 F H 99.3 F H 99.3 F H Temperature Source Temporal Temporal Temporal Pulse Rate 80 71 71 Respiratory Rate 18 18 18 Respiratory Effort Respiratory Pattern Blood Pressure 130/63 H 114/61 114/61 Blood Pressure Mean 85 78 78 Pulse Ox 97 97 97 Oxygen Delivery Method Nasal Cannula Nasal Cannula Nasal Cannula Oxygen Flow Rate (L/min) 2 2 2 08/21/21 17:00 Temperature Temperature Source Pulse Rate Respiratory Rate Respiratory Effort Respiratory Pattern Blood Pressure Blood Pressure Mean Pulse Ox Oxygen Delivery Method Nasal Cannula Oxygen Flow Rate (L/min) 3 Weight Weight: 71.9 kg Body Mass Index (BMI) 22.7 Physical Exam Const alert, oriented x3, no apparent distress and average body habitus Constitutional Narrative: Older white male lying in bed appears as if he is not feeling well but nontoxic and very pleasant General Appearance: cooperative HEENT normocephalic, head/scalp atraumatic, hearing grossly normal bilaterally and moist oral mucous membranes HEENT Narrative: Mallampati 2, no thrush Eyes PERRL, EOMs intact bilaterally and conjunctivae normal Eyes Narrative: No scleral icterus Neck no lymphadenopathy, supple, no JVD and no carotid bruits Neck Narrative: Trachea midline, no thyroid enlargement Resp normal respiratory effort, no retractions and no use of accessory muscles Resp Narrative: Diffuse scattered fine crackles, diminished right middle lobe/right upper lobe Auscultation: crackles; Negative for rales, rhonchi or wheezes Cardio regular rate, regular rhythm, S1 normal heart sound, S2 normal heart sound, no murmurs, no rub, no gallops, no clicks and no JVD GI normal to inspection, nondistended, normoactive bowel sounds, soft to palpation, non-tender and non-distended Extremity no clubbing, cyanosis or edema Peripheral Pulses: Yes pulses 2+ throughout Skin no rashes or lesions noted, no wounds, skin turgor normal, no jaundice, no petechiae and no mottling Skin Narrative: Pale Neuro oriented x3, CN's II-XII intact bilaterally and moves all extremities Sensorium / Orientation: awake and alert Speech: speech normal Psych affect normal Results Medical Records Data Attestation: I reviewed the patient's medical records Lab / Micro Data Result Diagrams: 08/21/21 09:52 08/21/21 10:45 Labs: Laboratory Results - last 24 hr 08/21/21 09:52: WBC 4.8, RBC 4.77, Hgb 13.7, Hct 43.1, MCV 90.4, MCH 28.7, MCHC 31.8 L, RDW Std Deviation 52.5 H, RDW Coeff of Rosa 16.1 H, Plt Count 107 L, MPV 10.0, Immature Gran % (Auto) 0.400, Neut % (Auto) 63.3, Lymph % (Auto) 26.7, Wilcox % (Auto) 8.6, Eos % (Auto) 0.6, Baso % (Auto) 0.4, Absolute Neuts (auto) 3.0, Absolute Lymphs (auto) 1.27, Nucleated RBC % 0 08/21/21 09:52: Sodium Cancelled, Potassium Cancelled, Chloride Cancelled, Carbon Dioxide Cancelled, Anion Gap Cancelled, BUN Cancelled, Creatinine Cancelled, Estim Creat Clear Calc Cancelled, Est GFR (MDRD) Af Amer Cancelled, Est GFR (MDRD) Non-Af Cancelled, BUN/Creatinine Ratio Cancelled, Glucose Cancelled, Calcium Cancelled, Total Bilirubin Cancelled, AST Cancelled, ALT Cancelled, Alkaline Phosphatase Cancelled, Total Protein Cancelled, Albumin Cancelled, Globulin Cancelled, Albumin/Globulin Ratio Cancelled 08/21/21 09:52: Lactic Acid Cancelled 08/21/21 10:20: Urine Color SEE COMMENT BELOW, Urine Clarity Clear, Urine pH 5.0, Ur Specific [place] 1.025, Urine Protein 500 H, Urine Glucose (UA) Normal, Urine Ketones 15 H, Urine Occult Blood 150 H, Urine Nitrite Positive H, Urine Bilirubin 3 H, Urine Urobilinogen 4 H, Ur Leukocyte Esterase 25 H, Urine RBC 0 SEEN, Urine WBC 0 SEEN, Ur Squamous Epith Cells 0-5 SEEN, Urine Bacteria 0 SEEN, Fine Granular Casts 0-5 SEEN, Urine Mucus 0 SEEN 08/21/21 10:45: Sodium 136, Potassium 4.5, Chloride 101, Carbon Dioxide 23.0, Anion Gap 12, BUN 25 H, Creatinine 1.92 H, Estim Creat Clear Calc 32.74, Est GFR (MDRD) Af Amer 44 L, Est GFR (MDRD) Non-Af 36 L, BUN/Creatinine Ratio 13.0, Glucose 190 H, Calcium 8.9, Total Bilirubin 1.00, AST 61 H, ALT 24, Alkaline Phosphatase 142 H, Total Protein 6.5, Albumin 2.3 L, Globulin 4.2, Albumin/Globulin Ratio 0.5 L 08/21/21 11:53: PT 13.5, INR 1.1, APTT 28.7 08/21/21 11:53: Lactic Acid 2.2 H* 08/21/21 16:40: Lactic Acid 1.5 Micro: Microbiology 08/21/21 10:10 Mucosa - Nasopharyngeal Influenza Types A,B Direct FA (SB) - Final 08/21/21 09:52 Nasal Secretion SARS-CoV-2 Antigen (Rapid) - Final SARS-CoV-2 (COVID 19) Radiology Impression Chest X-Ray 08/21/21 09:58 IMPRESSION: Progressive infiltrate in the peripheral lateral aspect of the right upper lobe. Pulmonary infiltrate should be ruled out. Stable elevation of the right hemidiaphragm. Electronically Signed: Maxi Austin MD at 10:46 EST , Service support , Chest CT 08/21/21 15:30 IMPRESSION: Right upper lobe pneumonia. Electronically Signed: Jimmy Chris MD at 16:49 EST , Service support , Assessment & Plan Assessment/Plan (1) Mycobacterium avium-intracellulare complex: (2) Pneumonia due to 2019-nCoV: PLAN: COVID-19 infection -Patient is currently on his baseline oxygen of 3 L at rest and 5 L with ambulation -Given his tenuous medical history we will start Decadron day 1 of 10 -Not a candidate for remdesivir due to the fact that he is not hypoxic as compared to baseline and he is per his report over 10 days out from symptom onset -Patient has been vaccinated and boosted -Airborne precautions -Gentle hydration x1 L -Pulmonary toilet/I-S/Acapella -If patient stable may be able to discharge tomorrow MAC infection -Chest x-ray is concerning for worsening right upper lobe pneumonia -Case was discussed by the ER physician with the primary risk management internship, Dr. Morales, and he requested admission at least for observation with initiation of Zosyn -CT of the chest was obtained after admission--> and when compared to previous CAT scan done on 05/07/2021 there does not appear to be significant difference -Continue ethambutol, rifampin, and azithromycin -Patient follows with Dr. Adrian at [facility] in [place] -Consult pulmonary medicine Chronic hypoxic respiratory failure -Patient is currently on home oxygen of 3 L at rest and 5 L with ambulation -No acute changes at this time -Continue to monitor Interstitial fibrosis -Lung exam is consistent with this -Pulmonary consulted DM-2 -Increase Lantus dose to 26 units given Decadron use -Continue home log dosing 25 3 times daily -Carb controlled diet -Sliding scale insulin -Accu-Cheks CAD/HTN/HPL -Continue home medications GERD -Continue omeprazole History of renal artery stenosis -Stable Paroxysmal atrial fibrillation -Continue Xarelto -Current need normal sinus rhythm -Patient is not currently on amiodarone but has been previously DVT prophylaxis -Chronic Xarelto use CODE STATUS -Full code Charges/Coding Visit Charges Inpatient E&M: 20588 Init Hosp L3
[2021-08-21 18:55] LABS: Bedside Glucose 123 mg/dL (70-110)
[2021-08-21] MEDS: Rivaroxaban 15 MG Tablet PO (22:12)
[2021-08-21] MEDS: Atorvastatin Calcium 40 MG Tablet PO (22:12)
[2021-08-21] MEDS: TICAGRELOR 90 MG TABLET PO (22:12)
[2021-08-21] MEDS: Propranolol 40 MG Tablet 80 MG PO (22:12)
[2021-08-21 22:31] LABS: Bedside Glucose 287 mg/dL (70-110)
[2021-08-22] VITALS (12 sets, daily range): BP systolic 114–156; BP diastolic 43–61; PULSE 61–79; RESP 16–20; TEMP 36.5–38.7; O2SAT 88–97
[2021-08-22] MEDS: Propranolol 40 MG Tablet 80 MG PO ×3 (06:18→22:25)
[2021-08-22 06:41] LABS: Bedside Glucose 98 mg/dL (70-110)
--- NOTE | 2021-08-22 06:49 | NURSING ---
Spoke with patients Marion, updated her on patients condition. Informed that his home medication Myambutol needed to be brought in from home so he would be able to get it here. stated she would bring in it later today.
[2021-08-22 07:13] LABS: Absolute Lymphocyte Count 0.64 X10^3/uL (0.83-4.51); Absolute Neutrophil Count 1.3 X10^3/uL (2.0-7.7); Basophil# 0.01 X10^3/uL; Basophil% 0.5 % (0-1); Eosinophil# 0.02 X10^3/uL; Eosinophils% 0.9 % (0-5); Hemoglobin 12.2 g/dL (13.0-16.5); Lymphocyte # 0.64 X10^3/ul (0.83-4.51); Lymphocyte % 29.9 % (19-41); Mean Corpuscular Hgb 29.1 pg (27.0-32.0); Mean Corpuscular Volume 88.3 fL (80-94); Mean Platelet Vol. 9.2 fl (6.2-12.0); Monocyte# 0.17 X10^3/uL; Monocyte% 7.9 % (0-10); NRBC Flagged by Analyzer 0 % (0-5); Neutrophil # 1.29 X10^3/uL (2.7-7.7); Neutrophil % 60.3 % (47-70); POSITIVE COUNT YES; Platelet Count 79 K/mm3 (150-450); RBC Distribution Width SD 51.5 fl (35.1-43.9); Red Blood Count 4.19 M/mm3 (4.6-6.2); White Blood Count 2.1 K/mm3 (4.4-11.0)
[2021-08-22 07:22] LABS: Differential Indicated SCAN CRITERIA MET
[2021-08-22 07:45] LABS: ALB/GLOB Ratio 0.6 RATIO (0.9-2.4); AST(SGOT) 60 U/L (15-37); Alanine Aminotransfer ALT/SGPT 23 U/L (16-61); Alkaline Phosphatase 112 U/L (45-117); Anion Gap 7 (5-15); BUN 23 mg/dL (7-18); BUN/Creat Ratio 12.9 RATIO (10-20); Calcium,Total 7.8 mg/dL (8.5-10.1); Chloride 100 mmol/L (98-107); Creatinine, Serum 1.78 mg/dL (0.70-1.30); EST Glomerular Filtration Rate 39 mL/min (>60); Est Glom Filt Rate - Afr Amer 48 mL/min (>60); Estimated Creatinine Clearance 34.88 ml/min; Globulin 3.6 g/dL (2.2-4.2); Glucose 112 mg/dL (74-106); Magnesium 1.9 mg/dL (1.6-2.6); Potassium 3.5 mmol/L (3.5-5.1); Protein, Total 5.6 g/dL (6.4-8.2); Sodium Level 134 mmol/L (136-145)
[2021-08-22 07:50] LABS: Platelet Estimate MOD DEC (ADEQ)
[2021-08-22] MEDS: Azithromycin 250 MG Tablet 500 MG PO (08:29)
[2021-08-22] MEDS: Pantoprazole Sodium 40 MG Tablet PO (08:29)
[2021-08-22] MEDS: amLODIPine 2.5 MG Tablet PO ×2 (08:30)
[2021-08-22] MEDS: Ferrous Sulfate 325 MG Tablet PO ×2 (08:30→18:17)
[2021-08-22] MEDS: TICAGRELOR 90 MG TABLET PO (08:30)
[2021-08-22] MEDS: Acetaminophen 325 MG Tablet 650 MG PO ×2 (08:30→18:24)
[2021-08-22] MEDS: Losartan Potassium 25 MG Tablet PO (08:30)
[2021-08-22] MEDS: rifAMPin 300 MG Capsule 600 MG PO (08:30)
[2021-08-22] MEDS: dexAMETHasone 4 MG/ML Vial 6 MG IV (08:31)
--- NOTE | 2021-08-22 11:30 | CASEMGMT ---
ANGIE CONTE Assessment: ANGIE CONTE spoke w/pt for initial transition planning/care coordination assessment. ANGIE CONTE introduced self and role at [facility], pt voices understanding and consents to assessment. Pt is A/O x4 and answers all questions appropriately at this time. Care providers, pharmacy, and demographics verified/updated. COVID testing done @ [facility] PCP: Dr Serrato Specialists: Dr Morales--pulmonology. Dr Mario- cardiology. Dr Mancilla-- nephrology Preferred Pharmacy: [facility] Retail Insurance: [employer] Prescription Benefit: yes LW/HPOA: Pt has a LW/DPOA on file at [facility]. His DPOA is his , Marion Aguilar. LNOK: Marion Aguilar, Living Arrangements: Pt lives with and developmentally delayed son in a single story house with three steps to enter. Pt reports being I in ADL's and denies concerns at home. He states they are not currently ill and have no signs/symptoms of COVID. He states he is able to self isolate when returning home and has been doing so. He states he has been sleeping in separate bedroom since getting oxygen d/t the noise of the O2 concentrator. He uses the same bathroom as his son. ANGIE CONTE recommended they use different bathrooms. He states they may not be able to do that. Advised to disinfect after each use if they have to use the same one. He states they have disinfectants and cleaning supplies. Dtr can get groceries and further supplies as needed. Transportation: Pt does not drive often. Pt transports him to medical appts. DME/HHC/SNF: Pt has a pulse ox, w/c available (does not use), and glucometer w/testing supplies, needles, and insulin. Pt denies any hx of HHC or SNF stays. He denies need for HHC at this time. Pt has O2 thru [employer]: 3l/m @ rest and 5 l/m w/exertion. Family can bring in portable O2 tank to go home on @ dc. Pt wishes to return home and states no concerns with going home at time of dc. Pt states no further concerns/needs. CM to follow. Advised pt to ask CM if any further question/concerns/needs arise, voices understanding. Plan: Home Jeremy CUNNINGHAM RN, CM
[2021-08-22] MEDS: Glucerna Shake 120 ML LIQUID PO (12:14)
[2021-08-22] MEDS: Insulin Lispro 100 UNIT/ML INSULN.PEN SC ×2 (12:20→18:16)
--- NOTE | 2021-08-22 12:35 | NURSING ---
Assisted in pt getting in chair at this time. This nurse decreased o2 to to 2L [place] and spo2 maintained at 94%-96%
[2021-08-22 12:45] LABS: Bedside Glucose 179 mg/dL (70-110)
--- NOTE | 2021-08-22 13:52 | EX.PCM.CONCC ---
Assessment & Plan Assessment/Plan (1) Interstitial lung disease: (2) Mycobacterium avium complex: (3) Pneumonia due to 2019-nCoV: (4) Chronic respiratory failure with hypoxia: (5) CKD (chronic kidney disease) stage 3, GFR 30-59 ml/min: (6) RENEE (obstructive sleep apnea): (7) Paroxysmal atrial fibrillation: PLAN: RECOMMENDATIONS: 1. Continue empiric antibiotics pending culture results 2. Wean oxygen to maintain sat greater than 90% 3. Walking oximetry prior to discharge 4. Continue MAC antibiotics 5. Agree with systemic anticoagulation 6. Monitor for complications of Decadron therapy IMPRESSIONS: 1. Acute COVID-19 infection in the setting of restrictive lung disease secondary to MAC Unclear significance at this time. Patient does have a significantly depressed respiratory system secondary to postinflammatory fibrosis, MAC infection and history of smoking. Patient's oxygen is currently at baseline. Reasonable to use Decadron therapy for 10 days. Continue with Zosyn in addition to the MAC therapy for 48 hours. If cultures negative at 48 hours, likely okay to discontinue Zosyn. Given patient's unvaccinated status, recommend monitoring for 48 hours until culture negative. Patient will need a walking oximetry prior to discharge. Would treat with 10 days of Decadron no matter what cultures or oxygenation shows in the next 48 hours. Patient is on systemic anticoagulation, so PE is unlikely. 2. Paroxysmal A. fib/PAD/renal artery stenosis/CKD/advanced age/diabetes mellitus Complicates care, management, recovery and prognosis. Rate is controlled at this time. Patient is on anticoagulation. We will have to watch patient's blood glucose levels closely given Decadron therapy. HPI Consult Data Date of Consult: 08/22/21 HPI Narrative HPI Narrative: SAL SPENCER is a 76 M, with past medical history listed below, who presents to [facility] on 08/21/2021 secondary to fever, cough, diarrhea and dry heaves. Patient reportedly has had progressive symptoms over the last week. Patient did recently have a bronchoscopy showing MAC infection and is currently on triple antibiotics as dictated by ID. Patient had noticed a fever of 103.1 ?F and progressive weakness, so came into the ER for evaluation. Patient had reported some lightheadedness with standing and a headache. Patient did have some congestion and postnasal drip along with a sore throat and cough. Patient does have production with cough, but states he swallows it before looking at it. Patient has not had any hematuria, hematemesis, melena or hematochezia. In the ER, patient was afebrile. Patient was tachypneic at 24 breaths/min, but normotensive and requiring 2 L nasal cannula. Patient reportedly uses 3 to 5 L nasal cannula at baseline. Laboratory data showed a white blood cell count of 4.8, hemoglobin of 13.7 and platelet count of 107. Coagulation studies were unremarkable. Creatinine was elevated at 1.92 and glucose at 190. Alkaline phosphatase was elevated at 142 and UA was unremarkable. Lactate was elevated to 2.2 and a chest x-ray showed progressive infiltrates with stable elevation of the right hemidiaphragm. EKG showed normal sinus rhythm. The ER did discuss with myself and Dr. Morales, his primary frame gate mortiser operator, and patient was admitted to the floor receiving Zosyn and Decadron therapy. Since being admitted, patient reports subjective improvement in overall condition. Patient is denying any current chest pain and feels his breathlessness is improved. Patient has had some diarrhea. Patient admits that he does not ambulate much around his room. Patient believes his cough is unchanged. Patient does report that he was not vaccinated against COVID-19. Patient reports he was tolerating his MAC antibiotics without issue. Review of systems otherwise negative from a constitutional, HEENT, respiratory, cardiovascular, GI, genitourinary, musculoskeletal, skin, neurologic, psychiatric and hematologic system unless stated above. [facility] Medical History Alcohol use Anxiety Arthritis Back pain BiPAP (biphasic positive airway pressure) dependence Cardiology follow-up encounter Chest pain Chronic respiratory failure with hypoxia CKD (chronic kidney disease) stage 3, GFR 30-59 ml/min CKD (chronic kidney disease) stage 4, GFR 15-29 ml/min COPD (chronic obstructive pulmonary disease) Coronary artery disease CPAP (continuous positive airway pressure) dependence CVA (cerebral vascular accident) Depression Dietary restriction DM2 (diabetes mellitus, type 2) Emphysema lung Essential (primary) hypertension Former smoker Gastric reflux History of echocardiogram History of heart attack History of irregular heartbeat History of non-ST elevation myocardial infarction (NSTEMI) (04/06/21) History of pain when walking History of stress test Hyperlipemia Insulin dependent diabetes mellitus Kidney stone on right side Leg cramps Loss of hearing Low iron Migraines Myocardial infarct Nicotine dependence, cigarettes, in remission Non-tuberculous mycobacterial pneumonia RENEE (obstructive sleep apnea) PAD (peripheral artery disease) Paroxysmal atrial fibrillation Pulmonary nodule Renal artery stenosis Restless legs Shortness of breath on exertion Syncope Thoracic aortic aneurysm TIA (transient ischemic attack) (~09/13/09) Vitamin B12 deficiency Wears glasses Home Medications amlodipine 2.5 mg PO DAILY 05/15/17 [History Last Taken 05/31/21] propranolol 80 mg PO TID 05/15/17 [History Last Taken 05/31/21] acetaminophen 650 mg PO Q4H PRN PRN tab 05/17/17 [Rx Last Taken Unknown] rivaroxaban 15 mg PO DINNER 05/22/19 [History Last Taken 05/30/21] Lantus U-100 Insulin 18 unit SUBCUT QHS 03/28/21 [History Last Taken 05/30/21] losartan 25 mg PO DAILY 03/28/21 [History Last Taken 05/31/21] omeprazole 40 mg PO DAILY 03/28/21 [History Last Taken 05/31/21] atorvastatin 40 mg PO QHS #90 tab 04/08/21 [Rx Last Taken 05/30/21] albuterol sulfate 90 mcg/actuation aerosol inhaler 2 puff INHALATION Q6H PRN #8.5 g 05/09/21 [Rx Last Taken 05/30/21] insulin lispro [Humalog U-100 Insulin] 25 unit SUBCUT TIDCM 05/15/21 [History Last Taken 05/31/21] ferrous sulfate [FeroSul] 325 mg PO BID #60 tab 06/04/21 [Rx Last Taken Unknown] azithromycin 500 mg tablet 500 mg PO MOWEFR 07/21/21 [History Last Taken Unknown] ethambutol 400 mg tablet 1,600 mg PO MOWEFR 07/21/21 [History Last Taken Unknown] rifampin 300 mg capsule 600 mg PO MOWEFR 07/21/21 [History Last Taken Unknown] ticagrelor 90 mg PO BID 08/21/21 [History Last Taken Unknown] Allergy/AdvReac Type Severity Reaction Status Date / Time hydromorphone [From Dilaudid] Allergy Severe Vomiting Verified 08/21/21 17:10 melon AdvReac Severe throat Verified 08/21/21 17:10 swells and itchy promethazine [From Phenergan] AdvReac Severe Unknown Verified 08/21/21 09:55 Opioids - Morphine Analogues AdvReac Vomiting Verified 08/21/21 09:55 Family History Father Cirrhosis Mother Cancer lung Surgical History History of cardiac catheterization (04/07/21) History of carpal tunnel release History of coronary artery stent placement (08/28/20) History of heart artery stent History of inguinal hernia repair Hx of lithotripsy Social History household members: spouse and children housing: house Smoking Status: Former smoker Tobacco: How many years used: 30 how long ago did patient quit smokin, 2ppd second hand exposure: Yes substance use type: does not use ROS ROS Narrative See HPI Physical Exam Const alert, oriented x3, no apparent distress and average body habitus General Appearance: cooperative, well kempt and well developed; Negative for ill appearing HEENT normocephalic, head/scalp atraumatic, hearing grossly normal bilaterally and moist oral mucous membranes Eyes PERRL, EOMs intact bilaterally, conjunctivae normal and no scleral icterus Neck no lymphadenopathy, supple, no JVD and no carotid bruits Neck Narrative: Trachea midline, no thyroid enlargement Chest inspection of chest normal Chest: abnormal inspection of the chest other (Decreased chest excursion on the right); Negative for crepitus Resp normal respiratory effort, no retractions and no use of accessory muscles Auscultation: crackles right 1/2 way up and diminished lung sounds right lower; Negative for rales, rhonchi or wheezes Cardio regular rate, regular rhythm, S1 normal heart sound, S2 normal heart sound, no murmurs, no rub, no gallops, no clicks and no JVD GI normal to inspection, nondistended, normoactive bowel sounds, soft to palpation, non-tender and non-distended Extremity no clubbing, cyanosis or edema Peripheral Pulses: Yes pulses 2+ throughout Skin no rashes or lesions noted, no wounds, skin turgor normal, no jaundice, no petechiae and no mottling Neuro oriented x3, CN's II-XII intact bilaterally and moves all extremities Sensorium / Orientation: awake and alert Speech: speech normal Psych affect normal Lab / Micro Data Result Diagrams: 08/22/21 06:48 08/22/21 06:48 Labs: Laboratory Results - last 24 hr 08/21/21 16:40: Lactic Acid 1.5 08/21/21 17:41: POC Glucose 123 H 08/21/21 22:10: POC Glucose 287 H 08/22/21 06:17: POC Glucose 98 08/22/21 06:48: WBC 2.1 L, RBC 4.19 L, Hgb 12.2 L, Hct 37.0 L, MCV 88.3, MCH 29.1, MCHC 33.0, RDW Std Deviation 51.5 H, RDW Coeff of Rosa 16.0 H, Plt Count 79 L, MPV 9.2, Immature Gran % (Auto) 0.500, Neut % (Auto) 60.3, Lymph % (Auto) 29.9, [place] % (Auto) 7.9, Eos % (Auto) 0.9, Baso % (Auto) 0.5, Absolute Neuts (auto) 1.3 L, Absolute Lymphs (auto) 0.64 L, Nucleated RBC % 0, Platelet Estimate MOD DEC 08/22/21 06:48: Sodium 134 L, Potassium 3.5, Chloride 100, Carbon Dioxide 27.0, Anion Gap 7, BUN 23 H, Creatinine 1.78 H, Estim Creat Clear Calc 34.88, Est GFR (MDRD) Af Amer 48 L, Est GFR (MDRD) Non-Af 39 L, BUN/Creatinine Ratio 12.9, Glucose 112 H, Calcium 7.8 L, Phosphorus 2.0 L, Magnesium 1.9, Total Bilirubin 0.60, AST 60 H, ALT 23, Alkaline Phosphatase 112, Total Protein 5.6 L, Albumin 2.0 L, Globulin 3.6, Albumin/Globulin Ratio 0.6 L 08/22/21 12:13: POC Glucose 179 H Micro: Microbiology 08/21/21 10:10 Mucosa - Nasopharyngeal Influenza Types A,B Direct FA (SB) - Final 08/21/21 09:52 Nasal Secretion SARS-CoV-2 Antigen (Rapid) - Final SARS-CoV-2 (COVID 19) Radiology Impression Chest CT 08/21/21 15:30 IMPRESSION: Right upper lobe pneumonia. Electronically Signed: Jimmy Chris MD at 16:49 EST , Service support , Charges/Coding Visit Charges Inpatient E&M: 94152 Init Hosp L2
[2021-08-22] MEDS: 0.9% Saline Lock 10 ML Syringe IV (14:53)
--- NOTE | 2021-08-22 16:45 | PN.HOSP_ITS ---
Subjective Subjective Patient still having intermittent fevers and appetite is still poor. He is complaining of significant weakness and he does not feel well able to be able to move around by himself. I discussed with him that we would have therapy see him and assess him for his needs and ability. He still remains on his baseline 3 L nasal cannula and actually has been able to be weaned to 2. Objective Data Objective Data Vital Signs: Vital Signs Temp Pulse Resp BP Pulse Ox 97.7 F L 61 16 132/57 H 96 08/22/21 14:58 08/22/21 14:58 08/22/21 14:58 08/22/21 14:58 08/22/21 14:58 Oxygen Flow Rate (L/min) 2 Oxygen Delivery Method Nasal Cannula Weight: 72.1 kg Body Mass Index (BMI) 22.7 Intake & Output: Intake and Output for Last 24 Hours 08/20/21 08/21/21 08/22/21 23:59 23:59 23:59 Intake Total 840 / 840 220 / 220 Output Total 225 / 225 Balance 840 / 840 -5 / -5 Lab / Micro Data Result Diagrams: 08/22/21 06:48 08/22/21 06:48 Labs: Laboratory Results - last 24 hr 08/21/21 16:40: Lactic Acid 1.5 08/21/21 17:41: POC Glucose 123 H 08/21/21 22:10: POC Glucose 287 H 08/22/21 06:17: POC Glucose 98 08/22/21 06:48: WBC 2.1 L, RBC 4.19 L, Hgb 12.2 L, Hct 37.0 L, MCV 88.3, MCH 29.1, MCHC 33.0, RDW Std Deviation 51.5 H, RDW Coeff of Rosa 16.0 H, Plt Count 79 L, MPV 9.2, Immature Gran % (Auto) 0.500, Neut % (Auto) 60.3, Lymph % (Auto) 29.9, [place] % (Auto) 7.9, Eos % (Auto) 0.9, Baso % (Auto) 0.5, Absolute Neuts (auto) 1.3 L, Absolute Lymphs (auto) 0.64 L, Nucleated RBC % 0, Platelet Estimate MOD DEC 08/22/21 06:48: Sodium 134 L, Potassium 3.5, Chloride 100, Carbon Dioxide 27.0, Anion Gap 7, BUN 23 H, Creatinine 1.78 H, Estim Creat Clear Calc 34.88, Est GFR (MDRD) Af Amer 48 L, Est GFR (MDRD) Non-Af 39 L, BUN/Creatinine Ratio 12.9, Glucose 112 H, Calcium 7.8 L, Phosphorus 2.0 L, Magnesium 1.9, Total Bilirubin 0.60, AST 60 H, ALT 23, Alkaline Phosphatase 112, Total Protein 5.6 L, Albumin 2.0 L, Globulin 3.6, Albumin/Globulin Ratio 0.6 L 08/22/21 12:13: POC Glucose 179 H Micro: Microbiology 08/21/21 10:10 Mucosa - Nasopharyngeal Influenza Types A,B Direct FA (SB) - Final 08/21/21 09:52 Nasal Secretion SARS-CoV-2 Antigen (Rapid) - Final SARS-CoV-2 (COVID 19) Radiography Diagnostic Testing: Radiology Impression Chest CT 08/21/21 15:30 IMPRESSION: Right upper lobe pneumonia. Electronically Signed: Jimmy Chris MD at 16:49 EST , Service support , Physical Exam Const alert, oriented x3, no apparent distress and average body habitus Constitutional Narrative: Older white male lying in bed appears as if he is not feeling well but nontoxic and very pleasant--> more jovial and interactive today yes than yesterday and appears as if he is feeling better overall General Appearance: cooperative Exam Limitations: no limitations HEENT normocephalic, head/scalp atraumatic, hearing grossly normal bilaterally and moist oral mucous membranes HEENT Narrative: Mallampati 2, no thrush Head and Scalp: normocephalic Eyes Eyes Narrative: No scleral icterus Resp normal respiratory effort, no retractions and no use of accessory muscles Resp Narrative: Diffuse scattered fine crackles, diminished right middle lobe/right upper lobe Auscultation: crackles; Negative for rales, rhonchi or wheezes Cardio regular rate, regular rhythm, S1 normal heart sound, S2 normal heart sound, no murmurs, no rub, no gallops, no clicks and no JVD GI normal to inspection, nondistended, normoactive bowel sounds, soft to palpation, non-tender and non-distended Extremity no clubbing, cyanosis or edema Peripheral Pulses: Yes pulses 2+ throughout Skin Skin Narrative: Pale Neuro oriented x3, moves all extremities and no focal motor deficits Sensorium / Orientation: awake and alert Speech: speech normal Assessment & Plan Assessment/Plan (1) Mycobacterium avium-intracellulare complex: (2) Pneumonia due to 2019-nCoV: PLAN: COVID-19 infection -Patient is currently on his baseline oxygen of 3 L at rest and 5 L with am bulation -Decadron 2 of 10 -Was initiated as per discussion with pulmonology on admission and is a recommendation to discharge and treat with 10 days no matter what oxygenation status is -Not a candidate for remdesivir due to the fact that he is not hypoxic as compared to baseline and he is per his report over 10 days out from symptom onset -Patient has been vaccinated and boosted -Airborne precautions -Pulmonary toilet/I-S/Acapella -Continue current Zosyn per pulmonary recommendations -A be able to discharge in the next 48 hours if he remains stable MAC infection -Chest x-ray is concerning for worsening right upper lobe pneumonia -Case was discussed by the ER physician with the primary dental hygiene professor, Dr. Morales, and he requested admission at least for observation with initiation of Zosyn -CT of the chest was obtained after admission--> and when compared to previous CAT scan done on 05/07/2021 there does not appear to be significant difference -Continue ethambutol, rifampin, and azithromycin -Patient follows with Dr. Adrian at [facility] in [place] -Pulmonary medicine is following Chronic hypoxic respiratory failure -Patient is currently on home oxygen of 3 L at rest and 5 L with ambulation -No acute changes at this time -Continue to monitor Interstitial fibrosis -Lung exam is consistent with this -Pulmonary consulted DM-2 -Continue Lantus dose to 26 units given Decadron use -Continue home log dosing 25 units 3 times daily -Adjustments made on admission appear to be adequately controlling his blood sugars for the most part despite Decadron -Carb controlled diet -Sliding scale insulin -Accu-Cheks CAD/HTN/HPL -Continue home medications GERD -Continue omeprazole History of renal artery stenosis -Stable Paroxysmal atrial fibrillation -Continue Xarelto -Current need normal sinus rhythm -Patient is not currently on amiodarone but has been previously DVT prophylaxis -Chronic Xarelto use CODE STATUS -Full code Charges/Coding Visit Charges Inpatient E&M: 94425 Subs Hosp L2
--- NOTE | 2021-08-22 18:32 | NURSING ---
Pt refused to take scheduled xarelto despite education given regarding preventing a blood clot and that he is at great risk for d/t covid. Pt refused still. States an infectious disease guru named Dr. Adrian, told him and his not to take Brillenta and Xarelto b/c it interferes with the Antibotics or other medicines he is on. Pt was not able to elaborate which medicines. Pt states that Dr. Andre can just call him. This nurse explained how that would be hard for Dr. Andre to call him. Pt used Incentive Spirometer as well at this time. Pt stated he used it this morning. Education reinforced that he should be using every hour.
[2021-08-22 19:05] LABS: Bedside Glucose 234 mg/dL (70-110)
[2021-08-22] MEDS: Atorvastatin Calcium 40 MG Tablet PO (22:24)
[2021-08-22 23:00] LABS: Bedside Glucose 214 mg/dL (70-110)
[2021-08-23] VITALS (9 sets, daily range): BP systolic 111–153; BP diastolic 50–72; PULSE 63–86; RESP 18–20; TEMP 36.5–39.3; O2SAT 92–96
[2021-08-23] MEDS: 0.9% Saline Lock 10 ML Syringe IV ×4 (04:37→22:34)
[2021-08-23] MEDS: Ondansetron 4 MG/2 ML Vial IV (04:38)
[2021-08-23 07:00] LABS: Bedside Glucose 54 mg/dL (70-110)
[2021-08-23 07:00] LABS: Bedside Glucose 83 mg/dL (70-110)
[2021-08-23] MEDS: Propranolol 40 MG Tablet 80 MG PO ×3 (07:33→22:36)
[2021-08-23 07:34] LABS: Absolute Neutrophil Count 1.7 X10^3/uL (2.0-7.7); Hemoglobin 11.5 g/dL (13.0-16.5); Lymphocyte % 24.6 % (19-41); Mean Corp Hgb Conc 32.9 g/dL (32-36); Mean Corpuscular Hgb 28.8 pg (27.0-32.0); Mean Corpuscular Volume 87.5 fL (80-94); Mean Platelet Vol. 9.7 fl (6.2-12.0); Monocyte# 0.18 X10^3/uL; Monocyte% 7.4 % (0-10); NRBC Flagged by Analyzer 0 % (0-5); Neutrophil # 1.65 X10^3/uL (2.7-7.7); Neutrophil % 67.6 % (47-70); POSITIVE COUNT YES; POSITIVE DIFFERENTIAL YES; Platelet Count 83 K/mm3 (150-450); RBC Distribution Width CV 15.8 % (11.6-14.6); RBC Distribution Width SD 49.6 fl (35.1-43.9); White Blood Count 2.4 K/mm3 (4.4-11.0)
[2021-08-23 08:02] LABS: ALB/GLOB Ratio 0.5 RATIO (0.9-2.4); AST(SGOT) 63 U/L (15-37); Alanine Aminotransfer ALT/SGPT 21 U/L (16-61); Albumin, Serum 1.9 g/dL (3.2-5.0); Alkaline Phosphatase 104 U/L (45-117); Anion Gap 7 (5-15); BUN 21 mg/dL (7-18); BUN/Creat Ratio 12.6 RATIO (10-20); Calcium,Total 7.9 mg/dL (8.5-10.1); Chloride 100 mmol/L (98-107); Creatinine, Serum 1.67 mg/dL (0.70-1.30); EST Glomerular Filtration Rate 42 mL/min (>60); Est Glom Filt Rate - Afr Amer 51 mL/min (>60); Estimated Creatinine Clearance 36.46 ml/min; Globulin 3.6 g/dL (2.2-4.2); Glucose 67 mg/dL (74-106); Potassium 3.3 mmol/L (3.5-5.1); Protein, Total 5.5 g/dL (6.4-8.2); Sodium Level 135 mmol/L (136-145)
[2021-08-23 08:20] LABS: Differential Indicated SCAN CRITERIA MET
[2021-08-23] MEDS: Losartan Potassium 25 MG Tablet PO (10:03)
[2021-08-23] MEDS: TICAGRELOR 90 MG TABLET PO ×2 (10:03→22:37)
[2021-08-23] MEDS: Ferrous Sulfate 325 MG Tablet PO ×2 (10:03→16:25)
[2021-08-23] MEDS: Potassium Chloride Oral Tablet 20 MEQ 40 MEQ PO (10:03)
[2021-08-23] MEDS: dexAMETHasone 4 MG/ML Vial 6 MG IV (10:04)
[2021-08-23] MEDS: Pantoprazole Sodium 40 MG Tablet PO (10:04)
--- NOTE | 2021-08-23 10:34 | PCM.PN.INT ---
Assessment & Plan Assessment/Plan (1) Interstitial lung disease: (2) Mycobacterium avium complex: (3) Pneumonia due to 2019-nCoV: (4) Chronic respiratory failure with hypoxia: (5) CKD (chronic kidney disease) stage 3, GFR 30-59 ml/min: (6) RENEE (obstructive sleep apnea): (7) Paroxysmal atrial fibrillation: PLAN: RECOMMENDATIONS: 1. Continue empiric antibiotics pending culture results 2. Wean oxygen to maintain sat greater than 90% 3. Walking oximetry prior to discharge 4. Continue MAC antibiotics through hospitalization and as an outpatient 5. Agree with systemic anticoagulation 6. Monitor for complications of Decadron therapy IMPRESSIONS: 1. Acute COVID-19 infection in the setting of restrictive lung disease secondary to MAC Unclear significance at this time. Patient does have a significantly depressed respiratory system secondary to postinflammatory fibrosis, MAC infection and history of smoking. Patient's oxygen is currently at baseline. Reasonable to use Decadron therapy for 10 days. Continue with Zosyn in addition to the MAC therapy for 48 hours. If cultures negative at 48 hours, likely okay to discontinue Zosyn. Given patient's unvaccinated status, recommend monitoring for additional 24 hours until culture negative. Patient will need a walking oximetry prior to discharge. Would treat with 10 days of Decadron no matter what cultures or oxygenation shows in the next 48 hours. Patient is on systemic anticoagulation, so PE is unlikely. 2. Paroxysmal A. fib/PAD/renal artery stenosis/CKD/advanced age/diabetes mellitus Complicates care, management, recovery and prognosis. Rate is controlled at this time. Patient is on anticoagulation. We will have to watch patient's blood glucose levels closely given Decadron therapy. Subjective Subjective Patient did okay overnight. Oxygen requirements have not changed. Patient did have significant fever overnight, but no hemodynamic instability. Patient is still reporting loose bowel movements. Objective Data Objective Data Vital Signs: Vital Signs Temp Pulse Resp BP Pulse Ox 36.6 C 68 20 H 120/59 L 93 08/23/21 09:58 08/23/21 09:58 08/23/21 09:58 08/23/21 09:58 08/23/21 10:00 Oxygen Flow Rate (L/min) 4 Oxygen Delivery Method Nasal Cannula Weight: 70.7 kg Body Mass Index (BMI) 22.7 Intake & Output: Intake and Output for Last 24 Hours 08/21/21 08/22/21 08/23/21 23:59 23:59 23:59 Intake Total 840 / 840 964.75 / 964.75 314.5 / 314.5 Output Total 450 / 450 150 / 150 Balance 840 / 840 514.75 / 514.75 164.5 / 164.5 Lab / Micro Data Result Diagrams: 08/23/21 06:40 08/23/21 06:40 Labs: Laboratory Results - last 24 hr 08/22/21 12:13: POC Glucose 179 H 08/22/21 18:11: POC Glucose 234 H 08/22/21 22:18: POC Glucose 214 H 08/23/21 06:35: POC Glucose 54 L 08/23/21 06:40: WBC 2.4 L, RBC 4.00 L, Hgb 11.5 L, Hct 35.0 L, MCV 87.5, MCH 28.8, MCHC 32.9, RDW Std Deviation 49.6 H, RDW Coeff of Rosa 15.8 H, Plt Count 83 L, MPV 9.7, Immature Gran % (Auto) 0.400, Neut % (Auto) 67.6, Lymph % (Auto) 24.6, [place] % (Auto) 7.4, Eos % (Auto) 0.0, Baso % (Auto) 0.0, Absolute Neuts (auto) 1.7 L, Absolute Lymphs (auto) 0.60 L, Nucleated RBC % 0 08/23/21 06:40: Sodium 135 L, Potassium 3.3 L, Chloride 100, Carbon Dioxide 28.0, Anion Gap 7, BUN 21 H, Creatinine 1.67 H, Estim Creat Clear Calc 36.46, Est GFR (MDRD) Af Amer 51 L, Est GFR (MDRD) Non-Af 42 L, BUN/Creatinine Ratio 12.6, Glucose 67 L, Calcium 7.9 L, Total Bilirubin 0.90, AST 63 H, ALT 21, Alkaline Phosphatase 104, Total Protein 5.5 L, Albumin 1.9 L, Globulin 3.6, Albumin/Globulin Ratio 0.5 L 08/23/21 06:51: POC Glucose 83 Micro: Microbiology 08/21/21 09:52 Blood Culture (Wb) - Left Forearm Blood Culture - Preliminary No growth in 48 hours. 08/21/21 10:20 Blood Culture (Wb) - Left Wrist Blood Culture - Preliminary No growth in 48 hours. 08/21/21 10:20 Urine, Clean Catch Urine Culture - Final Culture exhibits no growth. 08/21/21 10:10 Mucosa - Nasopharyngeal Influenza Types A,B Direct FA (SB) - Final 08/21/21 09:52 Nasal Secretion SARS-CoV-2 Antigen (Rapid) - Final SARS-CoV-2 (COVID 19) Physical Exam Const alert, oriented x3, no apparent distress and average body habitus General Appearance: cooperative, well kempt and well developed; Negative for ill appearing HEENT normocephalic, head/scalp atraumatic, hearing grossly normal bilaterally and moist oral mucous membranes Eyes PERRL, EOMs intact bilaterally, conjunctivae normal and no scleral icterus Neck no lymphadenopathy, supple, no JVD and no carotid bruits Neck Narrative: Trachea midline, no thyroid enlargement Chest inspection of chest normal Chest: abnormal inspection of the chest other (Decreased chest excursion on the right); Negative for crepitus Resp normal respiratory effort, no retractions and no use of accessory muscles Auscultation: crackles right 1/[address] way up and diminished lung sounds right lower; Negative for rales, rhonchi or wheezes Cardio regular rate, regular rhythm, S1 normal heart sound, S2 normal heart sound, no murmurs, no rub, no gallops, no clicks and no JVD GI normal to inspection, nondistended, normoactive bowel sounds, soft to palpation, non-tender and non-distended Extremity no clubbing, cyanosis or edema Peripheral Pulses: Yes pulses 2+ throughout Skin no rashes or lesions noted, no wounds, skin turgor normal, no jaundice, no petechiae and no mottling Neuro oriented x3, CN's II-XII intact bilaterally and moves all extremities Sensorium / Orientation: awake and alert Speech: speech normal Psych affect normal Charges/Coding Visit Charges Inpatient E&M: 11691 Subs Hosp L2
[2021-08-23 10:36] LABS: Differential Comment SCANNED
[2021-08-23 13:41] LABS: Bedside Glucose 169 mg/dL (70-110)
[2021-08-23] MEDS: Rivaroxaban 15 MG Tablet PO (16:25)
[2021-08-23 17:01] LABS: Bedside Glucose 175 mg/dL (70-110)
[2021-08-23] MEDS: Insulin Lispro 100 UNIT/ML INSULN.PEN SC (17:17)
--- NOTE | 2021-08-23 18:21 | PCM.PN.HOSP ---
Subjective Subjective Patient was seen and examined today, I talked briefly with pulmonary medicine about his care. Patient is on his home O2 setting at rest which is 3 L presently. Objective Data Objective Data Vital Signs: Vital Signs Temp Pulse Resp BP Pulse Ox 97.7 F L 63 18 147/63 H 94 08/23/21 16:17 08/23/21 16:17 08/23/21 16:17 08/23/21 16:17 08/23/21 16:17 Oxygen Flow Rate (L/min) 4 Oxygen Delivery Method Nasal Cannula Weight: 70.7 kg Body Mass Index (BMI) 22.7 Intake & Output: Intake and Output for Last 24 Hours 08/21/21 08/22/21 08/23/21 23:59 23:59 23:59 Intake Total 840 / 840 964.75 / 964.75 1064.5 / 1064.5 Output Total 450 / 450 500 / 500 Balance 840 / 840 514.75 / 514.75 564.5 / 564.5 Lab / Micro Data Result Diagrams: 08/23/21 06:40 08/23/21 06:40 Labs: Laboratory Results - last 24 hr 08/22/21 18:11: POC Glucose 234 H 08/22/21 22:18: POC Glucose 214 H 08/23/21 06:35: POC Glucose 54 L 08/23/21 06:40: WBC 2.4 L, RBC 4.00 L, Hgb 11.5 L, Hct 35.0 L, MCV 87.5, MCH 28.8, MCHC 32.9, RDW Std Deviation 49.6 H, RDW Coeff of Rosa 15.8 H, Plt Count 83 L, MPV 9.7, Immature Gran % (Auto) 0.400, Neut % (Auto) 67.6, Lymph % (Auto) 24.6, [place] % (Auto) 7.4, Eos % (Auto) 0.0, Baso % (Auto) 0.0, Absolute Neuts (auto) 1.7 L, Absolute Lymphs (auto) 0.60 L, Nucleated RBC % 0, Differential Comment SCANNED, Diff Path Review January08/23/21 06:40: Sodium 135 L, Potassium 3.3 L, Chloride 100, Carbon Dioxide 28.0, Anion Gap 7, BUN 21 H, Creatinine 1.67 H, Estim Creat Clear Calc 36.46, Est GFR (MDRD) Af Amer 51 L, Est GFR (MDRD) Non-Af 42 L, BUN/Creatinine Ratio 12.6, Glucose 67 L, Calcium 7.9 L, Total Bilirubin 0.90, AST 63 H, ALT 21, Alkaline Phosphatase 104, Total Protein 5.5 L, Albumin 1.9 L, Globulin 3.6, Albumin/Globulin Ratio 0.5 L 08/23/21 06:51: POC Glucose 83 08/23/21 12:40: POC Glucose 169 H 08/23/21 16:19: POC Glucose 175 H Micro: Microbiology 08/21/21 09:52 Blood Culture (Wb) - Left Forearm Blood Culture - Preliminary No growth in 48 hours. 08/21/21 10:20 Blood Culture (Wb) - Left Wrist Blood Culture - Preliminary No growth in 48 hours. 08/21/21 10:20 Urine, Clean Catch Urine Culture - Final Culture exhibits no growth. 08/21/21 10:10 Mucosa - Nasopharyngeal Influenza Types A,B Direct FA (SB) - Final 08/21/21 09:52 Nasal Secretion SARS-CoV-2 Antigen (Rapid) - Final SARS-CoV-2 (COVID 19) Physical Exam Const alert, oriented x3 and no apparent distress Constitutional Narrative: Patient appears his stated age General Appearance: cooperative, well kempt and well developed Orientation / Consciousness: awake, oriented to person, oriented to place and oriented to time HEENT normocephalic, head/scalp atraumatic and moist oral mucous membranes Head and Scalp: normocephalic Eyes PERRL, EOMs intact bilaterally and conjunctivae normal Neck nuchal rigidity, supple, no JVD, thyroid normal and no carotid bruits General: trachea midline Resp normal respiratory effort and clear to auscultation bilaterally Auscultation: Negative for rales, rhonchi or wheezes Cardio regular rate, regular rhythm, no murmurs, no rub and no gallops GI normal to inspection, nondistended, normoactive bowel sounds, soft to palpation, non-tender and non-distended Extremity no clubbing, cyanosis or edema Skin no rashes or lesions noted General Skin Exam: no breakdown Neuro oriented x3, CN's II-XII intact bilaterally, no focal motor deficits and no sensory deficits noted Sensorium / Orientation: awake and alert Speech: speech normal Psych thought process normal and affect normal Assessment & Plan Assessment/Plan (1) COVID-19: PLAN: 1. COVID-19 pneumonia-patient will remain on dexamethasone, he is not a candidate for remdesivir due to the fact that the patient is currently on his baseline oxygen requirement. #2 MAC infection of the lungs-patient will remain on his current antibiotic treatment #3 chronic hypoxic respiratory failure-patient is currently on his baseline oxygen settings #4 chronic kidney disease stage IIIa #5 restrictive lung disease #6 paroxysmal A. fib-patient is currently on full anticoagulation at this time #7 type 2 diabetes #8 hyperlipidemia #9 essential hypertension Charges/Coding Visit Charges Inpatient E&M: 67177 Subs Hosp L2
[2021-08-23] MEDS: Acetaminophen 325 MG Tablet 650 MG PO (22:33)
[2021-08-23] MEDS: Atorvastatin Calcium 40 MG Tablet PO (22:37)
[2021-08-23 22:55] LABS: Bedside Glucose 129 mg/dL (70-110)
[2021-08-24] VITALS (7 sets, daily range): BP systolic 114–125; BP diastolic 59–69; PULSE 57–76; RESP 18–20; TEMP 37.1–37.6; O2SAT 88–97
[2021-08-24] MEDS: Propranolol 40 MG Tablet 80 MG PO ×3 (06:45→22:54)
[2021-08-24 06:51] LABS: Bedside Glucose 81 mg/dL (70-110)
[2021-08-24] MEDS: Ferrous Sulfate 325 MG Tablet PO ×2 (08:12→17:04)
[2021-08-24 08:21] LABS: Absolute Lymphocyte Count 0.79 X10^3/uL (0.83-4.51); Absolute Neutrophil Count 2.6 X10^3/uL (2.0-7.7); Basophil# 0.01 X10^3/uL; Basophil% 0.3 % (0-1); Eosinophil# 0.01 X10^3/uL; Eosinophils% 0.3 % (0-5); Hemoglobin 12.7 g/dL (13.0-16.5); Lymphocyte # 0.79 X10^3/ul (0.83-4.51); Lymphocyte % 21.5 % (19-41); Mean Corp Hgb Conc 34.3 g/dL (32-36); Mean Corpuscular Volume 84.5 fL (80-94); Mean Platelet Vol. 9.2 fl (6.2-12.0); Monocyte# 0.21 X10^3/uL; Monocyte% 5.7 % (0-10); NRBC Flagged by Analyzer 0 % (0-5); Neutrophil # 2.64 X10^3/uL (2.7-7.7); Neutrophil % 71.9 % (47-70); POSITIVE COUNT YES; Platelet Count 84 K/mm3 (150-450); RBC Distribution Width CV 15.6 % (11.6-14.6); RBC Distribution Width SD 46.8 fl (35.1-43.9); Red Blood Count 4.38 M/mm3 (4.6-6.2); White Blood Count 3.7 K/mm3 (4.4-11.0)
[2021-08-24 08:35] LABS: ALB/GLOB Ratio 0.4 RATIO (0.9-2.4); AST(SGOT) 74 U/L (15-37); Alanine Aminotransfer ALT/SGPT 24 U/L (16-61); Albumin, Serum 1.9 g/dL (3.2-5.0); Alkaline Phosphatase 112 U/L (45-117); Anion Gap 9 (5-15); BUN 17 mg/dL (7-18); BUN/Creat Ratio 10.2 RATIO (10-20); Calcium,Total 8.4 mg/dL (8.5-10.1); Chloride 99 mmol/L (98-107); Creatinine, Serum 1.66 mg/dL (0.70-1.30); EST Glomerular Filtration Rate 43 mL/min (>60); Est Glom Filt Rate - Afr Amer 52 mL/min (>60); Estimated Creatinine Clearance 36.57 ml/min; Globulin 4.3 g/dL (2.2-4.2); Glucose 125 mg/dL (74-106); Potassium 3.9 mmol/L (3.5-5.1); Protein, Total 6.2 g/dL (6.4-8.2); Sodium Level 130 mmol/L (136-145)
--- NOTE | 2021-08-24 08:56 | PN.CC_ITS ---
Assessment & Plan Assessment/Plan (1) Interstitial lung disease: (2) Mycobacterium avium complex: (3) Pneumonia due to 2019-nCoV: (4) Chronic respiratory failure with hypoxia: (5) CKD (chronic kidney disease) stage 3, GFR 30-59 ml/min: (6) RENEE (obstructive sleep apnea): (7) Paroxysmal atrial fibrillation: PLAN: RECOMMENDATIONS: 1. Discontinue empiric Zosyn 2. Wean oxygen to maintain sat greater than 90% 3. Walking oximetry prior to discharge 4. Continue MAC antibiotics through hospitalization and as an outpatient 5. Agree with systemic anticoagulation 6. Monitor for complications of Decadron therapy 7. Potential discharge versus observation IMPRESSIONS: 1. Acute COVID-19 infection in the setting of restrictive lung disease secondary to MAC Unclear significance at this time. Patient does have a significantly depressed respiratory system secondary to postinflammatory fibrosis, MAC infection and history of smoking. Patient's oxygen is currently at baseline. Reasonable to use Decadron therapy for 10 days. Culture negative at 48 hours, so will discontinue Zosyn. Given patient's unvaccinated status, recommend monitoring for additional 24 hours until culture negative. Patient will need a walking oximetry prior to discharge. Would treat with 10 days of Decadron no matter what cultures or oxygenation shows in the next 48 hours. Patient is on systemic anticoagulation, so PE is unlikely. 2. Paroxysmal A. fib/PAD/renal artery stenosis/CKD/advanced age/diabetes mellitus Complicates care, management, recovery and prognosis. Rate is controlled at this time. Patient is on anticoagulation. We will have to watch patient's blood glucose levels closely given Decadron therapy. Subjective Subjective Patient did okay overnight from a hemodynamic standpoint. Patient did have a significant fever overnight, but nursing reports that he was under a lot of blankets in a hot room. Patient subjectively describes himself as rough. Patient has had some diarrhea, but no change in supplemental oxygen has been required Objective Data Objective Data Vital Signs: Vital Signs Temp Pulse Resp BP Pulse Ox 37.3 C 73 20 H 118/64 96 08/24/21 06:41 08/24/21 06:41 08/24/21 06:41 08/24/21 06:41 08/24/21 06:41 Oxygen Flow Rate (L/min) 4 Oxygen Delivery Method Nasal Cannula Weight: 70.5 kg Body Mass Index (BMI) 22.7 Intake & Output: Intake and Output for Last 24 Hours 08/22/21 08/23/21 08/24/21 23:59 23:59 23:59 Intake Total 964.75 / 964.75 1205.25 / 1205.25 170 / 170 Output Total 450 / 450 850 / 850 200 / 200 Balance 514.75 / 514.75 355.25 / 355.25 -30 / -30 Lab / Micro Data Result Diagrams: 08/24/21 07:56 08/24/21 07:56 Labs: Laboratory Results - last 24 hr 08/23/21 06:40: Differential Comment SCANNED, Diff Path Review January08/23/21 12:40: POC Glucose 169 H 08/23/21 16:19: POC Glucose 175 H 08/23/21 22:28: POC Glucose 129 H 08/24/21 06:38: POC Glucose 81 08/24/21 07:56: WBC 3.7 L, RBC 4.38 L, Hgb 12.7 L, Hct 37.0 L, MCV 84.5, MCH 29.0, MCHC 34.3, RDW Std Deviation 46.8 H, RDW Coeff of Rosa 15.6 H, Plt Count 84 L, MPV 9.2, Immature Gran % (Auto) 0.300, Neut % (Auto) 71.9 H, Lymph % (Auto) 21.5, [place] % (Auto) 5.7, Eos % (Auto) 0.3, Baso % (Auto) 0.3, Absolute Neuts (auto) 2.6, Absolute Lymphs (auto) 0.79 L, Nucleated RBC % 0 08/24/21 07:56: Sodium 130 L, Potassium 3.9, Chloride 99, Carbon Dioxide 22.0, Anion Gap 9, BUN 17, Creatinine 1.66 H, Estim Creat Clear Calc 36.57, Est GFR (MDRD) Af Amer 52 L, Est GFR (MDRD) Non-Af 43 L, BUN/Creatinine Ratio 10.2, Glucose 125 H, Calcium 8.4 L, Total Bilirubin 0.80, AST 74 H, ALT 24, Alkaline Phosphatase 112, Total Protein 6.2 L, Albumin 1.9 L, Globulin 4.3 H, Albumin/Globulin Ratio 0.4 L Micro: Microbiology 08/21/21 09:52 Blood Culture (Wb) - Left Forearm Blood Culture - Preliminary No growth in 48 hours. 08/21/21 10:20 Blood Culture (Wb) - Left Wrist Blood Culture - Preliminary No growth in 48 hours. 08/21/21 10:20 Urine, Clean Catch Urine Culture - Final Culture exhibits no growth. 08/21/21 10:10 Mucosa - Nasopharyngeal Influenza Types A,B Direct FA (SB) - Final 08/21/21 09:52 Nasal Secretion SARS-CoV-2 Antigen (Rapid) - Final SARS-CoV-2 (COVID 19) Physical Exam Const alert, oriented x3, no apparent distress and average body habitus General Appearance: cooperative, well kempt and well developed; Negative for ill appearing HEENT normocephalic, head/scalp atraumatic, hearing grossly normal bilaterally and moist oral mucous membranes Eyes PERRL, EOMs intact bilaterally, conjunctivae normal and no scleral icterus Neck no lymphadenopathy, supple, no JVD and no carotid bruits Neck Narrative: Trachea midline, no thyroid enlargement Chest inspection of chest normal Chest: abnormal inspection of the chest other (Decreased chest excursion on the right); Negative for crepitus Resp normal respiratory effort, no retractions and no use of accessory muscles Auscultation: crackles right 1/2 way up and diminished lung sounds right lower; Negative for rales, rhonchi or wheezes Cardio regular rate, regular rhythm, S1 normal heart sound, S2 normal heart sound, no murmurs, no rub, no gallops, no clicks and no JVD GI normal to inspection, nondistended, normoactive bowel sounds, soft to palpation, non-tender and non-distended Extremity no clubbing, cyanosis or edema Peripheral Pulses: Yes pulses 2+ throughout Skin no rashes or lesions noted, no wounds, skin turgor normal, no jaundice, no petechiae and no mottling Neuro oriented x3, CN's II-XII intact bilaterally and moves all extremities Sensorium / Orientation: awake and alert Speech: speech normal Psych affect normal Charges/Coding Visit Charges Inpatient E&M: 90987 Subs Hosp L2
[2021-08-24] MEDS: Ondansetron 4 MG/2 ML Vial IV (09:13)
[2021-08-24] MEDS: amLODIPine 2.5 MG Tablet PO (09:14)
[2021-08-24] MEDS: Losartan Potassium 25 MG Tablet PO (09:14)
[2021-08-24] MEDS: TICAGRELOR 90 MG TABLET PO ×2 (09:14→22:54)
[2021-08-24] MEDS: 0.9% Saline Lock 10 ML Syringe IV (09:14)
[2021-08-24] MEDS: Pantoprazole Sodium 40 MG Tablet PO (09:14)
[2021-08-24] MEDS: dexAMETHasone 4 MG/ML Vial 6 MG IV (09:15)
[2021-08-24 11:55] LABS: Bedside Glucose 112 mg/dL (70-110)
[2021-08-24] MEDS: Rivaroxaban 15 MG Tablet PO (17:04)
[2021-08-24 17:10] LABS: Bedside Glucose 157 mg/dL (70-110)
--- NOTE | 2021-08-24 18:08 | PCM.PN.HOSP ---
Subjective Subjective Patient was seen and examined today, nursing states that he has been requiring 8 L of O2 via nasal cannula at rest, patient states he feels too weak to go home. Objective Data Objective Data Vital Signs: Vital Signs Temp Pulse Resp BP Pulse Ox 98.7 F 71 20 H 117/62 95 08/24/21 16:45 08/24/21 16:45 08/24/21 16:45 08/24/21 16:45 08/24/21 16:45 Oxygen Flow Rate (L/min) 8 Oxygen Delivery Method Nasal Cannula Weight: 70.5 kg Body Mass Index (BMI) 22.7 Intake & Output: Intake and Output for Last 24 Hours 08/22/21 08/23/21 08/24/21 23:59 23:59 23:59 Intake Total 964.75 / 964.75 1205.25 / 1205.25 470 / 470 Output Total 450 / 450 850 / 850 200 / 200 Balance 514.75 / 514.75 355.25 / 355.25 270 / 270 Lab / Micro Data Result Diagrams: 08/24/21 07:56 08/24/21 07:56 Labs: Laboratory Results - last 24 hr 08/23/21 22:28: POC Glucose 129 H 08/24/21 06:38: POC Glucose 81 08/24/21 07:56: WBC 3.7 L, RBC 4.38 L, Hgb 12.7 L, Hct 37.0 L, MCV 84.5, MCH 29.0, MCHC 34.3, RDW Std Deviation 46.8 H, RDW Coeff of Rosa 15.6 H, Plt Count 84 L, MPV 9.2, Immature Gran % (Auto) 0.300, Neut % (Auto) 71.9 H, Lymph % (Auto) 21.5, [place] % (Auto) 5.7, Eos % (Auto) 0.3, Baso % (Auto) 0.3, Absolute Neuts (auto) 2.6, Absolute Lymphs (auto) 0.79 L, Nucleated RBC % 0 08/24/21 07:56: Sodium 130 L, Potassium 3.9, Chloride 99, Carbon Dioxide 22.0, Anion Gap 9, BUN 17, Creatinine 1.66 H, Estim Creat Clear Calc 36.57, Est GFR (MDRD) Af Amer 52 L, Est GFR (MDRD) Non-Af 43 L, BUN/Creatinine Ratio 10.2, Glucose 125 H, Calcium 8.4 L, Total Bilirubin 0.80, AST 74 H, ALT 24, Alkaline Phosphatase 112, Total Protein 6.2 L, Albumin 1.9 L, Globulin 4.3 H, Albumin/Globulin Ratio 0.4 L 08/24/21 11:41: POC Glucose 112 H 08/24/21 16:41: POC Glucose 157 H Micro: Microbiology 08/21/21 09:52 Blood Culture (Wb) - Left Forearm Blood Culture - Preliminary No growth in 48 hours. 08/21/21 10:20 Blood Culture (Wb) - Left Wrist Blood Culture - Preliminary No growth in 48 hours. 08/21/21 10:20 Urine, Clean Catch Urine Culture - Final Culture exhibits no growth. 08/21/21 10:10 Mucosa - Nasopharyngeal Influenza Types A,B Direct FA (SB) - Final 08/21/21 09:52 Nasal Secretion SARS-CoV-2 Antigen (Rapid) - Final SARS-CoV-2 (COVID 19) Physical Exam Const alert Constitutional Narrative: Patient appears unwell and older than his stated age General Appearance: cooperative, well kempt and well developed Orientation / Consciousness: awake, oriented to person, oriented to place and oriented to time HEENT normocephalic and moist oral mucous membranes Eyes PERRL, EOMs intact bilaterally and conjunctivae normal Neck nuchal rigidity, supple, no JVD and thyroid normal General: trachea midline Resp normal respiratory effort and clear to auscultation bilaterally Auscultation: Negative for rales, rhonchi or wheezes Cardio regular rate, regular rhythm, S1 normal heart sound, S2 normal heart sound, no murmurs, no rub and no gallops GI normal to inspection, nondistended, normoactive bowel sounds, soft to palpation, non-tender and non-distended Extremity no clubbing, cyanosis or edema Skin no rashes or lesions noted General Skin Exam: no breakdown Neuro oriented x3, CN's II-XII intact bilaterally, no focal motor deficits and no sensory deficits noted Sensorium / Orientation: awake and alert Speech: speech normal Psych thought process normal and affect normal Assessment & Plan Assessment/Plan (1) COVID-19: PLAN: 1. COVID-19 pneumonia-patient will remain on dexamethasone, he is not a candidate for remdesivir due to the fact that the patient is currently on his baseline oxygen requirement. #2 MAC infection of the lungs-patient will remain on his current antibiotic treatment #3 chronic hypoxic respiratory failure-patient is requiring more than his home O2 settings today #4 chronic kidney disease stage IIIa #5 restrictive lung disease #6 paroxysmal A. fib-patient is currently on full anticoagulation at this time #7 type 2 diabetes #8 hyperlipidemia #9 essential hypertension #10 generalized debility-it may be necessary for the patient to go to a [facility]term [facility] facility if the patient does not have any help at home. Charges/Coding Visit Charges Inpatient E&M: 72822 Subs Hosp L2
[2021-08-24] MEDS: Atorvastatin Calcium 40 MG Tablet PO (22:54)
[2021-08-24 23:36] LABS: Bedside Glucose 203 mg/dL (70-110)
[2021-08-25] VITALS (12 sets, daily range): BP systolic 135–155; BP diastolic 66–71; PULSE 66–78; RESP 18–32; TEMP 36.2–38.7; O2SAT 86–99
[2021-08-25] MEDS: Acetaminophen 325 MG Tablet 650 MG PO ×2 (02:26→21:48)
[2021-08-25] MEDS: Propranolol 40 MG Tablet 80 MG PO ×3 (06:30→21:48)
[2021-08-25 06:41] LABS: Bedside Glucose 94 mg/dL (70-110)
--- NOTE | 2021-08-25 09:35 | PN.HOSP_ITS ---
Subjective Subjective Patient oxygenation worsened. Currently on 15 L of oxygen. Feels more short of breath. History of MAC on antibiotic as an outpatient. Objective Data Objective Data Vital Signs: Vital Signs Temp Pulse Resp BP Pulse Ox 97.6 F L 73 18 135/66 H 94 08/25/21 06:32 08/25/21 03:41 08/25/21 02:25 08/25/21 02:25 08/25/21 06:34 Oxygen Flow Rate (L/min) 15 Oxygen Delivery Method Nasal Cannula Weight: 153 lb 7.068 oz Body Mass Index (BMI) 22.7 Intake & Output: Intake and Output for Last 24 Hours 08/23/21 08/24/21 08/25/21 23:59 23:59 23:59 Intake Total 1205.25 / 1205.25 570 / 570 50 / 50 Output Total 850 / 850 300 / 300 Balance 355.25 / 355.25 270 / 270 50 / 50 Lab / Micro Data Result Diagrams: 08/24/21 07:56 08/24/21 07:56 Labs: Laboratory Results - last 24 hr 08/24/21 11:41: POC Glucose 112 H 08/24/21 16:41: POC Glucose 157 H 08/24/21 22:45: POC Glucose 203 H 08/25/21 06:29: POC Glucose 94 Micro: Microbiology 08/21/21 09:52 Blood Culture (Wb) - Left Forearm Blood Culture - Preliminary No growth in 48 hours. 08/21/21 10:20 Blood Culture (Wb) - Left Wrist Blood Culture - Preliminary No growth in 48 hours. 08/21/21 10:20 Urine, Clean Catch Urine Culture - Final Culture exhibits no growth. 08/21/21 10:10 Mucosa - Nasopharyngeal Influenza Types A,B Direct FA (SB) - Final 08/21/21 09:52 Nasal Secretion SARS-CoV-2 Antigen (Rapid) - Final SARS-CoV-2 (COVID 19) Physical Exam Narrative General: Alert, Oriented x3, Cooperative HEENT: Atraumatic, PERRLA, EOMI, Normocephalic Oral: No Gingival or Mucosal Lesions/ Ulcerations Neck: Supple, No JVD, Negative Carotid Bruits Lungs: Air entry bilaterally diminished. Bilateral crepitations and rhonchi. Severe hypoxia. Dyspnea on exertion Cardiovascular: Regular rate, Regular Rhythm, Normal S1, Normal S2, No murmurs Abdomen: Bowel Sounds Present, Soft, Non Tender, Non-Distended : No renal angle tenderness. No suprapubic tenderness. Extremities: No edema, Capillary Refill Less than 3 Seconds Skin: No rashes, No breakdown Musculoskeletal: No Tenderness to Palpation of Joints or Extremities Neurological: Cranial nerves II-XII grossly intact, DTR 2+/4 and Symmetrical, Neuro grossly intact Psych/Mental Status: Flat affect. Assessment & Plan Assessment/Plan (1) COVID-19: PLAN: 1. COVID-19 pneumonia-continue dexamethasone. Patient symptoms started 1 week before 08/14 and was admitted on 08/21. He is out of window of remdesivir. ID consult for baricitinib approval. #2 MAC infection of the lungs- continue azithromycin ethambutol and rifampin. #3 Acute on chronic hypoxic respiratory failure- patient is on 15 L of oxygen. #4 chronic kidney disease stage IIIa #5 restrictive lung disease/MAC #6 paroxysmal A. fib-patient is currently on full anticoagulation at this time. On Xarelto #7 type 2 diabetes mellitus pain #8 hyperlipidemia #9 essential hypertension #10 generalized debility-it may be necessary for the patient to go to a short- term [place] [facility] facility if the patient does not have any help at home. Charges/Coding Visit Charges Inpatient E&M: 88127 Subs Hosp L2
[2021-08-25] MEDS: amLODIPine 2.5 MG Tablet PO (09:41)
[2021-08-25] MEDS: Pantoprazole Sodium 40 MG Tablet PO (09:41)
[2021-08-25] MEDS: Losartan Potassium 25 MG Tablet PO (09:41)
[2021-08-25] MEDS: Ferrous Sulfate 325 MG Tablet PO ×2 (09:41→17:04)
[2021-08-25] MEDS: rifAMPin 300 MG Capsule 600 MG PO (09:42)
[2021-08-25] MEDS: Azithromycin 250 MG Tablet 500 MG PO (09:42)
[2021-08-25] MEDS: dexAMETHasone 4 MG/ML Vial 6 MG IV (09:43)
[2021-08-25] MEDS: TICAGRELOR 90 MG TABLET PO ×2 (09:45→21:48)
[2021-08-25 11:55] LABS: Bedside Glucose 159 mg/dL (70-110)
[2021-08-25] MEDS: Insulin Lispro 100 UNIT/ML INSULN.PEN SC ×2 (12:29→17:03)
[2021-08-25] MEDS: Rivaroxaban 15 MG Tablet PO (17:04)
[2021-08-25 17:11] LABS: Bedside Glucose 210 mg/dL (70-110)
[2021-08-25] MEDS: 0.9% Saline Lock 10 ML Syringe IV (21:46)
[2021-08-25] MEDS: Atorvastatin Calcium 40 MG Tablet PO (21:48)
[2021-08-25 22:00] LABS: Bedside Glucose 147 mg/dL (70-110)
[2021-08-26] VITALS (25 sets, daily range): BP systolic 124–162; BP diastolic 47–71; PULSE 60–81; RESP 16–40; TEMP 36.1–38.9; O2SAT 79–97
[2021-08-26] MEDS: Menthol/Lanolin/Calamine/Znox 113 GM Tube 1 APPLIC TOPICAL ×3 (03:26→20:59)
[2021-08-26] MEDS: Acetaminophen 325 MG Tablet 650 MG PO ×2 (06:28→23:05)
[2021-08-26] MEDS: Propranolol 40 MG Tablet 80 MG PO ×3 (06:31→20:59)
[2021-08-26 07:21] LABS: Bedside Glucose 137 mg/dL (70-110)
[2021-08-26 08:58] LABS: Pathologist Review Reviewed
[2021-08-26] MEDS: Pantoprazole Sodium 40 MG Tablet PO (09:06)
[2021-08-26] MEDS: amLODIPine 2.5 MG Tablet PO (09:06)
[2021-08-26] MEDS: TICAGRELOR 90 MG TABLET PO ×2 (09:06→20:59)
[2021-08-26] MEDS: dexAMETHasone 4 MG/ML Vial 6 MG IV (09:06)
[2021-08-26] MEDS: Ferrous Sulfate 325 MG Tablet PO (09:06)
[2021-08-26] MEDS: Losartan Potassium 25 MG Tablet PO (09:06)
[2021-08-26] MEDS: 0.9% Saline Lock 10 ML Syringe IV (09:09)
[2021-08-26 09:11] LABS: Absolute Lymphocyte Count 0.59 X10^3/uL (0.83-4.51); Absolute Neutrophil Count 4.8 X10^3/uL (2.0-7.7); Basophil# 0.01 X10^3/uL; Basophil% 0.2 % (0-1); Eosinophil# 0.05 X10^3/uL; Eosinophils% 0.9 % (0-5); Hemoglobin 13.5 g/dL (13.0-16.5); Lymphocyte # 0.59 X10^3/ul (0.83-4.51); Lymphocyte % 10.3 % (19-41); Mean Corp Hgb Conc 32.9 g/dL (32-36); Mean Corpuscular Hgb 28.7 pg (27.0-32.0); Mean Platelet Vol. 10.1 fl (6.2-12.0); Monocyte# 0.29 X10^3/uL; NRBC Flagged by Analyzer 0 % (0-5); Neutrophil # 4.79 X10^3/uL (2.7-7.7); Neutrophil % 83.3 % (47-70); POSITIVE DIFFERENTIAL YES; Platelet Count 160 K/mm3 (150-450); RBC Distribution Width CV 15.1 % (11.6-14.6); RBC Distribution Width SD 46.4 fl (35.1-43.9); Red Blood Count 4.71 M/mm3 (4.6-6.2); White Blood Count 5.8 K/mm3 (4.4-11.0)
[2021-08-26 09:17] LABS: Differential Indicated SCAN CRITERIA MET
--- NOTE | 2021-08-26 09:17 | PN.HOSP_ITS ---
Subjective Subjective Seen and examined Patient shortness of breath remains same as yesterday with no improvement. Mild cough with rattling sound and wheezing. Objective Data Objective Data Vital Signs: Vital Signs Temp Pulse Resp BP Pulse Ox 98.5 F 80 24 H 134/57 H 96 08/26/21 08:42 08/26/21 08:42 08/26/21 08:42 08/26/21 08:42 08/26/21 08:42 Oxygen Flow Rate (L/min) 55 Oxygen Delivery Method Airvo Weight: 150 lb 5.684 oz Body Mass Index (BMI) 22.7 Intake & Output: Intake and Output for Last 24 Hours 08/24/21 08/25/21 08/26/21 23:59 23:59 23:59 Intake Total 570 / 570 540 / 540 200 / 200 Output Total 300 / 300 925 / 925 175 / 175 Balance 270 / 270 -385 / -385 Lab / Micro Data Result Diagrams: 08/24/21 07:56 08/24/21 07:56 Labs: Laboratory Results - last 24 hr 08/23/21 06:40: Diff Path Review Reviewed 08/25/21 11:43: POC Glucose 159 H 08/25/21 17:03: POC Glucose 210 H 08/25/21 21:32: POC Glucose 147 H 08/26/21 06:21: POC Glucose 137 H Micro: Microbiology 08/21/21 09:52 Blood Culture (Wb) - Left Forearm Blood Culture - Preliminary No growth in 48 hours. 08/21/21 10:20 Blood Culture (Wb) - Left Wrist Blood Culture - Preliminary No growth in 48 hours. 08/21/21 10:20 Urine, Clean Catch Urine Culture - Final Culture exhibits no growth. 08/21/21 10:10 Mucosa - Nasopharyngeal Influenza Types A,B Direct FA (SB) - Final 08/21/21 09:52 Nasal Secretion SARS-CoV-2 Antigen (Rapid) - Final SARS-CoV-2 (COVID 19) Physical Exam Narrative General: Alert, Oriented x3, Cooperative HEENT: Atraumatic, PERRLA, EOMI, Normocephalic Oral: No Gingival or Mucosal Lesions/ Ulcerations Neck: Supple, No JVD, Negative Carotid Bruits Lungs: Air entry bilaterally severely diminished. Bilateral crepitations and rhonchi. Severe hypoxia. LANE Cardiovascular: Sinus rhythm, Normal S1, Normal S2, No murmurs Abdomen: Bowel Sounds Present, Soft, Non Tender, Non-Distended : No renal angle tenderness. No suprapubic tenderness. Extremities: No edema, Capillary Refill Less than 3 Seconds Skin: No rashes, No breakdown Musculoskeletal: No Tenderness to Palpation of Joints or Extremities Neurological: Cranial nerves II-XII grossly intact, DTR 2+/4 Psych/Mental Status: Flat affect. HEENT normocephalic, head/scalp atraumatic, hearing grossly normal bilaterally and moist oral mucous membranes Eyes PERRL, EOMs intact bilaterally and conjunctivae normal Eyes Narrative: No scleral icterus Neck nuchal rigidity, no lymphadenopathy, supple, no JVD and thyroid normal Neck Narrative: Trachea midline, no thyroid enlargement General: trachea midline Resp normal respiratory effort, no retractions, no use of accessory muscles and clear to auscultation bilaterally Resp Narrative: Diffuse scattered fine crackles, diminished right middle lobe/right upper lobe Auscultation: crackles; Negative for rales, rhonchi or wheezes Cardio regular rate, regular rhythm, S1 normal heart sound, S2 normal heart sound, no murmurs, no rub, no gallops, no clicks and no JVD GI normal to inspection, nondistended, normoactive bowel sounds, soft to palpation, non-tender and non-distended Extremity no clubbing, cyanosis or edema Skin no rashes or lesions noted, no wounds, skin turgor normal, no jaundice, no petechiae and no mottling Skin Narrative: Pale General Skin Exam: no breakdown Neuro oriented x3, CN's II-XII intact bilaterally, moves all extremities, no focal motor deficits and no sensory deficits noted Sensorium / Orientation: awake and alert Speech: speech normal Psych thought process normal and affect normal Assessment & Plan Assessment/Plan (1) COVID-19: PLAN: 1. COVID-19 pneumonia-continue dexamethasone. Patient symptoms started 1 week before 08/14 and was admitted on 08/21. He is out of window of remdesivir. ID consult for baricitinib approval. 08/26: Respiratory status remains similar. Repeat chest x-ray. Hypophosphatemia, phosphorus getting placed #2 MAC infection of the lungs- continue azithromycin ethambutol and rifampin. #3 Acute on chronic hypoxic respiratory failure- patient is on 15 L of oxygen. #4 chronic kidney disease stage IIIa #5 restrictive lung disease/MAC #6 paroxysmal A. fib-patient is currently on full anticoagulation at this time. On Xarelto #7 type 2 diabetes mellitus pain #8 hyperlipidemia #9 essential hypertension #10 generalized debility-it may be necessary for the patient to go to a short- term [facility] facility if the patient does not have any help at home. Microbiology Past 72 Hours 08/21/21 09:52 Blood Culture (Wb) - Left Forearm Blood Culture - Preliminary No growth in 48 hours. 08/21/21 10:20 Blood Culture (Wb) - Left Wrist Blood Culture - Preliminary No growth in 48 hours. 08/21/21 10:20 Urine, Clean Catch Urine Culture - Final Culture exhibits no growth. Laboratory Results 08/23/21 06:40: Diff Path Review Reviewed 08/25/21 11:43: POC Glucose 159 H 08/25/21 17:03: POC Glucose 210 H 08/25/21 21:32: POC Glucose 147 H 08/26/21 06:21: POC Glucose 137 H 08/26/21 07:08: WBC 5.8, RBC 4.71, Hgb 13.5, Hct 41.0, MCV 87.0, MCH 28.7, MCHC 32.9, RDW Std Deviation 46.4 H, RDW Coeff of Rosa 15.1 H, Plt Count 160, MPV 10.1, Immature Gran % (Auto) 0.300, Neut % (Auto) 83.3 H, Lymph % (Auto) 10.3 L, [place] % (Auto) 5.0, Eos % (Auto) 0.9, Baso % (Auto) 0.2, Absolute Neuts (auto) 4.8, Absolute Lymphs (auto) 0.59 L, Nucleated RBC % 0 08/26/21 07:08: Sodium Pending, Potassium Pending, Chloride Pending, Carbon Dioxide Pending, Anion Gap Pending, BUN Pending, Creatinine Pending, Est GFR (MDRD) Af Amer Pending, Est GFR (MDRD) Non-Af Pending, BUN/Creatinine Ratio Pending, Glucose Pending, Calcium Pending, Total Bilirubin Pending, AST Pending, ALT Pending, Alkaline Phosphatase Pending, Total Protein Pending, Albumin Pending Charges/Coding Visit Charges Inpatient E&M: 20304 Subs Hosp L2
[2021-08-26 09:40] LABS: ALB/GLOB Ratio 0.4 RATIO (0.9-2.4); AST(SGOT) 53 U/L (15-37); Alanine Aminotransfer ALT/SGPT 22 U/L (16-61); Albumin, Serum 1.9 g/dL (3.2-5.0); Alkaline Phosphatase 117 U/L (45-117); Anion Gap 8 (5-15); BUN 17 mg/dL (7-18); BUN/Creat Ratio 11.4 RATIO (10-20); Calcium,Total 8.7 mg/dL (8.5-10.1); Chloride 96 mmol/L (98-107); Creatinine, Serum 1.49 mg/dL (0.70-1.30); EST Glomerular Filtration Rate 48 mL/min (>60); Est Glom Filt Rate - Afr Amer 59 mL/min (>60); Estimated Creatinine Clearance 39.41 ml/min; Globulin 4.5 g/dL (2.2-4.2); Glucose 143 mg/dL (74-106); Potassium 3.7 mmol/L (3.5-5.1); Protein, Total 6.4 g/dL (6.4-8.2); Sodium Level 132 mmol/L (136-145)
[2021-08-26 09:47] LABS: Magnesium 2.1 mg/dL (1.6-2.6)
--- NOTE | 2021-08-26 10:22 | PCS.PANDOC ---
PANDEMIC DOCUMENTATION INITIATED: Date: 04/28/2021 Time: 1900 emergency team nursing assignment sheet
--- NOTE | 2021-08-26 10:28 | PCM.CONS.GEN ---
Assessment & Plan Assessment/Plan (1) COVID-19: PLAN: Sx since around 08/14. Unvaccinated. Isolate until 09/03. Recommended vaccine once out of iso. On dex. Was not given remdesivir. Was on brief course of zosyn. Continues on azithro/enthambutol/rifampin for ANN. Not a candidate for baricitinib with ongoing ANN infection. Will check d-dimer, CRP, procal, sputum cx. Will follow, thank you (2) Acute on chronic respiratory failure with hypoxia: (3) Mycobacterium avium complex: HPI Consult Data Date of Consult: 08/26/21 HPI Narrative HPI Narrative: SAL SPENCER, is a 76 M who presented with sx since 08/14. Started on abx for ANN by Dr. Adrian about 3 weeks ago. Unvaccinated for covid. C/o one week weakness, fever, chills, headache, congestion, sore throat, cough, nausea. Lives with and daughter who have tested negative, in quarantine. Came to ED, admitted on dex, zosyn. Now off zosyn but worsening O2. Some pinkish sputum. Full ROS performed and neg except as noted above. [facility] Medical History Alcohol use Anxiety Arthritis Back pain BiPAP (biphasic positive airway pressure) dependence Cardiology follow-up encounter Chest pain Chronic respiratory failure with hypoxia CKD (chronic kidney disease) stage 3, GFR 30-59 ml/min CKD (chronic kidney disease) stage 4, GFR 15-29 ml/min COPD (chronic obstructive pulmonary disease) Coronary artery disease CPAP (continuous positive airway pressure) dependence CVA (cerebral vascular accident) Depression Dietary restriction DM2 (diabetes mellitus, type 2) Emphysema lung Essential (primary) hypertension Former smoker Gastric reflux History of echocardiogram History of heart attack History of irregular heartbeat History of non-ST elevation myocardial infarction (NSTEMI) (04/06/21) History of pain when walking History of stress test Hyperlipemia Insulin dependent diabetes mellitus Kidney stone on right side Leg cramps Loss of hearing Low iron Migraines Myocardial infarct Nicotine dependence, cigarettes, in remission Non-tuberculous mycobacterial pneumonia RENEE (obstructive sleep apnea) PAD (peripheral artery disease) Paroxysmal atrial fibrillation Pulmonary nodule Renal artery stenosis Restless legs Shortness of breath on exertion Syncope Thoracic aortic aneurysm TIA (transient ischemic attack) (~09/13/09) Vitamin B12 deficiency Wears glasses Home Medications amlodipine 2.5 mg PO DAILY 05/15/17 [History Last Taken 05/31/21] propranolol 80 mg PO TID 05/15/17 [History Last Taken 05/31/21] acetaminophen 650 mg PO Q4H PRN PRN tab 05/17/17 [Rx Last Taken Unknown] rivaroxaban 15 mg PO DINNER 05/22/19 [History Last Taken 05/30/21] Lantus U-100 Insulin 18 unit SUBCUT QHS 03/28/21 [History Last Taken 05/30/21] losartan 25 mg PO DAILY 03/28/21 [History Last Taken 05/31/21] omeprazole 40 mg PO DAILY 03/28/21 [History Last Taken 05/31/21] atorvastatin 40 mg PO QHS #90 tab 04/08/21 [Rx Last Taken 05/30/21] albuterol sulfate 90 mcg/actuation aerosol inhaler 2 puff INHALATION Q6H PRN #8.5 g 05/09/21 [Rx Last Taken 05/30/21] insulin lispro [Humalog U-100 Insulin] 25 unit SUBCUT TIDCM 05/15/21 [History Last Taken 05/31/21] ferrous sulfate [FeroSul] 325 mg PO BID #60 tab 06/04/21 [Rx Last Taken Unknown] azithromycin 500 mg tablet 500 mg PO MOWEFR 07/21/21 [History Last Taken Unknown] ethambutol 400 mg tablet 1,600 mg PO MOWEFR 07/21/21 [History Last Taken Unknown] rifampin 300 mg capsule 600 mg PO MOWEFR 07/21/21 [History Last Taken Unknown] ticagrelor 90 mg PO BID 08/21/21 [History Last Taken Unknown] Allergy/AdvReac Type Severity Reaction Status Date / Time hydromorphone [From Dilaudid] Allergy Severe Vomiting Verified 08/21/21 17:10 melon AdvReac Severe throat Verified 08/21/21 17:10 swells and itchy promethazine [From Phenergan] AdvReac Severe Unknown Verified 08/21/21 09:55 Opioids - Morphine Analogues AdvReac Vomiting Verified 08/21/21 09:55 Family History Father Cirrhosis Mother Cancer lung Surgical History History of cardiac catheterization (04/07/21) History of carpal tunnel release History of coronary artery stent placement (08/28/20) History of heart artery stent History of inguinal hernia repair Hx of lithotripsy Social History household members: spouse and children housing: house Smoking Status: Former smoker Tobacco: How many years used: 30 how long ago did patient quit smokin, 2ppd second hand exposure: Yes substance use type: does not use Physical Exam Const alert and oriented x3 General Appearance: cooperative Exam Limitations: no limitations HEENT normocephalic and head/scalp atraumatic Eyes PERRL and EOMs intact bilaterally Neck supple and No nodes Resp Auscultation: diminished lung sounds Cardio regular rate and regular rhythm GI normal to inspection, nondistended, normoactive bowel sounds Extremity no clubbing, cyanosis or edema Skin no rashes or lesions noted Neuro CN's II-XII intact bilaterally Lab / Micro Data Result Diagrams: 08/26/21 07:08 08/26/21 07:08 Labs: Laboratory Results - last 24 hr 08/23/21 06:40: Diff Path Review Reviewed 08/25/21 11:43: POC Glucose 159 H 08/25/21 17:03: POC Glucose 210 H 08/25/21 21:32: POC Glucose 147 H 08/26/21 06:21: POC Glucose 137 H 08/26/21 07:08: WBC 5.8, RBC 4.71, Hgb 13.5, Hct 41.0, MCV 87.0, MCH 28.7, MCHC 32.9, RDW Std Deviation 46.4 H, RDW Coeff of Rosa 15.1 H, Plt Count 160, MPV 10.1, Immature Gran % (Auto) 0.300, Neut % (Auto) 83.3 H, Lymph % (Auto) 10.3 L, [place] % (Auto) 5.0, Eos % (Auto) 0.9, Baso % (Auto) 0.2, Absolute Neuts (auto) 4.8, Absolute Lymphs (auto) 0.59 L, Nucleated RBC % 0, Differential Comment COMMENT 08/26/21 07:08: Sodium 132 L, Potassium 3.7, Chloride 96 L, Carbon Dioxide 28.0, Anion Gap 8, BUN 17, Creatinine 1.49 H, Estim Creat Clear Calc 39.41, Est GFR (MDRD) Af Amer 59 L, Est GFR (MDRD) Non-Af 48 L, BUN/Creatinine Ratio 11.4, Glucose 143 H, Calcium 8.7, Total Bilirubin 1.50 H, AST 53 H, ALT 22, Alkaline Phosphatase 117, Total Protein 6.4, Albumin 1.9 L, Globulin 4.5 H, Albumin/Globulin Ratio 0.4 L 08/26/21 07:08: Phosphorus 2.0 L, Magnesium 2.1
[2021-08-26] MEDS: Na Biphos/Potassium Phosphate PACKET 1 PACKET PO ×2 (11:20→16:38)
[2021-08-26] MEDS: guaiFENesin/D-Methorphan TAB.SR.12H 1 TABLET PO ×2 (11:20→20:59)
[2021-08-26] MEDS: Insulin Lispro 100 UNIT/ML INSULN.PEN SC ×2 (11:22→16:37)
[2021-08-26 11:50] LABS: Bedside Glucose 232 mg/dL (70-110)
--- NOTE | 2021-08-26 15:13 | PCM.PN.INT ---
Assessment & Plan Assessment/Plan (1) Interstitial lung disease: (2) Mycobacterium avium complex: (3) Pneumonia due to 2019-nCoV: (4) Chronic respiratory failure with hypoxia: (5) CKD (chronic kidney disease) stage 3, GFR 30-59 ml/min: (6) RENEE (obstructive sleep apnea): (7) Paroxysmal atrial fibrillation: PLAN: RECOMMENDATIONS: 1. 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 2. Continue to wean FiO2 for saturations greater than 90%. 3. Continue Decadron to complete 10 days of therapy. 4. Baricitinib is not indicated at this time. 5. Continue Xarelto per home regimen. 6. Diuretics as needed to maintain euvolemic state. IMPRESSIONS: 1. Acute COVID-19 infection in the setting of restrictive lung disease secondary to MAC The patient's oxygenation status has been worsening over the course of his hospitalization. He remains on appropriate antimicrobial therapy to address his underlying MAC infection. In addition, the patient remains on Decadron and his home Xarelto regimen. He is not a candidate for baricitinib. Continue current supportive measures including oxygen to maintain saturations at or above 90%. If the patient were to worsen from an oxygenation perspective, BiPAP can be utilized. 2. Paroxysmal A. fib/PAD/renal artery stenosis/CKD/advanced age/diabetes mellitus Complicates care, management, recovery and prognosis. Continue home medications as indicated. This note was generated with [employer] dictation software. It may contain incorrect words, spelling, and punctuation that were not noted in checking the note before signing. Subjective Subjective The patient was seen and examined at the bedside this morning. Events from the last 24 hours have been reviewed. The patient is currently afebrile, hemodynamically stable and maintaining appropriate oxygen saturations on Airvo heated high flow with an FiO2 requirement of 83% and flow rate of 55 L/min. The patient is currently documented to be overall net +1.6 L for the hospitalization. The patient remains on antimicrobials to address his nontuberculous mycobacterial infection. He also remains on Decadron and Xarelto, per his home regimen. The patient is quite fatigued with increasing oxygen demand. Objective Data Objective Data The patient's most recent lab work, culture data and imaging studies have all been personally reviewed. Rapid coronavirus antigen testing was positive on August 21. Vital Signs: Vital Signs Temp Pulse Resp BP Pulse Ox 98.9 F 66 16 124/61 H 97 08/26/21 13:37 08/26/21 13:37 08/26/21 13:37 08/26/21 13:37 08/26/21 13:41 Oxygen Flow Rate (L/min) 55 Oxygen Delivery Method Airvo Weight: 68.2 kg Body Mass Index (BMI) 22.7 Intake & Output: Intake and Output for Last 24 Hours 08/24/21 08/25/21 08/26/21 23:59 23:59 23:59 Intake Total 570 / 570 540 / 540 200 / 200 Output Total 300 / 300 925 / 925 175 / 175 Balance 270 / 270 -385 / -385 Lab / Micro Data Attestation: I reviewed the patient's lab results. Result Diagrams: 08/27/21 06:50 08/27/21 06:50 Labs: Laboratory Results - last 24 hr 08/23/21 06:40: Diff Path Review Reviewed 08/25/21 17:03: POC Glucose 210 H 08/25/21 21:32: POC Glucose 147 H 08/26/21 06:21: POC Glucose 137 H 08/26/21 07:08: WBC 5.8, RBC 4.71, Hgb 13.5, Hct 41.0, MCV 87.0, MCH 28.7, MCHC 32.9, RDW Std Deviation 46.4 H, RDW Coeff of Rosa 15.1 H, Plt Count 160, MPV 10.1, Immature Gran % (Auto) 0.300, Neut % (Auto) 83.3 H, Lymph % (Auto) 10.3 L, [place] % (Auto) 5.0, Eos % (Auto) 0.9, Baso % (Auto) 0.2, Absolute Neuts (auto) 4.8, Absolute Lymphs (auto) 0.59 L, Nucleated RBC % 0, Differential Comment COMMENT 08/26/21 07:08: Sodium 132 L, Potassium 3.7, Chloride 96 L, Carbon Dioxide 28.0, Anion Gap 8, BUN 17, Creatinine 1.49 H, Estim Creat Clear Calc 39.41, Est GFR (MDRD) Af Amer 59 L, Est GFR (MDRD) Non-Af 48 L, BUN/Creatinine Ratio 11.4, Glucose 143 H, Calcium 8.7, Total Bilirubin 1.50 H, AST 53 H, ALT 22, Alkaline Phosphatase 117, Total Protein 6.4, Albumin 1.9 L, Globulin 4.5 H, Albumin/Globulin Ratio 0.4 L 08/26/21 07:08: Phosphorus 2.0 L, Magnesium 2.1 08/26/21 11:21: POC Glucose 232 H Micro: Microbiology 08/21/21 10:20 Blood Culture (Wb) - Left Wrist Blood Culture - Final No growth in 5 days. 08/21/21 09:52 Blood Culture (Wb) - Left Forearm Blood Culture - Final No growth in 5 days. 08/21/21 10:20 Urine, Clean Catch Urine Culture - Final Culture exhibits no growth. 08/21/21 10:10 Mucosa - Nasopharyngeal Influenza Types A,B Direct FA (SB) - Final 08/21/21 09:52 Nasal Secretion SARS-CoV-2 Antigen (Rapid) - Final SARS-CoV-2 (COVID 19) Physical Exam Const alert Constitutional Narrative: Sitting in bedside recliner with heated high flow circuit in place. General Appearance: cooperative and ill appearing HEENT normocephalic and head/scalp atraumatic Eyes PERRL, EOMs intact bilaterally and conjunctivae normal Neck supple General: trachea midline Chest inspection of chest normal Resp Auscultation: rales and diminished lung sounds Cardio regular rate and regular rhythm GI normal to inspection, nondistended, normoactive bowel sounds Extremity no clubbing, cyanosis or edema Skin no rashes or lesions noted Neuro CN's II-XII intact bilaterally, moves all extremities and no focal motor deficits Psych Mood & Affect: flat affect Charges/Coding Visit Charges Inpatient E&M: 91825 Subs Hosp L3
--- NOTE | 2021-08-26 15:13 | CASEMGMT ---
Social Work Note Per tassel clipper questions, pt has completed HCPOA and LW and provided copies to [facility]. SW reviewed chart. Both HCPOA and LW are on file at [facility]. SW printed off documents and placed them on pt's chart. Yareli Oconnell MSW, [employer]
[2021-08-26] MEDS: Rivaroxaban 15 MG Tablet PO (16:38)
[2021-08-26 17:06] LABS: Bedside Glucose 219 mg/dL (70-110)
[2021-08-26] MEDS: Atorvastatin Calcium 40 MG Tablet PO (20:59)
--- NOTE | 2021-08-26 21:08 | NURSING ---
Patient assisted into right side at this time.
[2021-08-26 21:15] LABS: Bedside Glucose 294 mg/dL (70-110)
[2021-08-27] VITALS (12 sets, daily range): BP systolic 110–153; BP diastolic 59–71; PULSE 63–78; RESP 18–22; TEMP 36.8–38.3; O2SAT 94–97
[2021-08-27] MEDS: Propranolol 40 MG Tablet 80 MG PO ×3 (06:31→21:34)
[2021-08-27 07:21] LABS: Absolute Lymphocyte Count 0.71 X10^3/uL (0.83-4.51); Absolute Neutrophil Count 3.8 X10^3/uL (2.0-7.7); Basophil# 0.01 X10^3/uL; Basophil% 0.2 % (0-1); Eosinophils% 2.1 % (0-5); Hematocrit 36.7 % (40-54); Lymphocyte # 0.71 X10^3/ul (0.83-4.51); Lymphocyte % 14.6 % (19-41); Mean Corp Hgb Conc 32.7 g/dL (32-36); Mean Corpuscular Hgb 28.4 pg (27.0-32.0); Mean Corpuscular Volume 86.8 fL (80-94); Mean Platelet Vol. 9.6 fl (6.2-12.0); Monocyte# 0.23 X10^3/uL; Monocyte% 4.7 % (0-10); NRBC Flagged by Analyzer 0.4 % (0-5); Neutrophil # 3.78 X10^3/uL (2.7-7.7); Platelet Count 169 K/mm3 (150-450); RBC Distribution Width CV 14.9 % (11.6-14.6); Red Blood Count 4.23 M/mm3 (4.6-6.2); White Blood Count 4.9 K/mm3 (4.4-11.0)
[2021-08-27 07:44] LABS: ALB/GLOB Ratio 0.4 RATIO (0.9-2.4); AST(SGOT) 35 U/L (15-37); Alanine Aminotransfer ALT/SGPT 18 U/L (16-61); Albumin, Serum 1.7 g/dL (3.2-5.0); Alkaline Phosphatase 107 U/L (45-117); Anion Gap 8 (5-15); BUN 18 mg/dL (7-18); BUN/Creat Ratio 12.7 RATIO (10-20); Calcium,Total 8.1 mg/dL (8.5-10.1); Chloride 97 mmol/L (98-107); Creatinine, Serum 1.42 mg/dL (0.70-1.30); EST Glomerular Filtration Rate 51 mL/min (>60); Est Glom Filt Rate - Afr Amer 62 mL/min (>60); Estimated Creatinine Clearance 41.24 ml/min; Globulin 4.4 g/dL (2.2-4.2); Glucose 99 mg/dL (74-106); Potassium 3.5 mmol/L (3.5-5.1); Protein, Total 6.1 g/dL (6.4-8.2); Sodium Level 132 mmol/L (136-145)
[2021-08-27] MEDS: Acetaminophen 325 MG Tablet 650 MG PO ×2 (07:56→14:02)
--- NOTE | 2021-08-27 09:26 | PN.HOSP_ITS ---
Subjective Subjective Patient states that his symptoms slightly better. Low-grade fever 100.9 Fahrenheit. On air Vo, 76 to 78% FiO2 Objective Data Objective Data Vital Signs: Vital Signs Temp Pulse Resp BP Pulse Ox 100.9 F H 75 18 153/71 H 94 08/27/21 07:48 08/27/21 07:48 08/27/21 07:48 08/27/21 07:48 08/27/21 08:53 Oxygen Flow Rate (L/min) 55 Oxygen Delivery Method Airvo Weight: 149 lb 14.629 oz Body Mass Index (BMI) 22.7 Intake & Output: Intake and Output for Last 24 Hours 08/25/21 08/26/21 08/27/21 23:59 23:59 23:59 Intake Total 540 / 540 200 / 200 Output Total 925 / 925 175 / 175 200 / 200 Balance -385 / -385 / -200 / -200 Lab / Micro Data Result Diagrams: 08/27/21 06:50 08/27/21 06:50 Labs: Laboratory Results - last 24 hr 08/26/21 07:08: Differential Comment COMMENT 08/26/21 07:08: Sodium 132 L, Potassium 3.7, Chloride 96 L, Carbon Dioxide 28.0, Anion Gap 8, BUN 17, Creatinine 1.49 H, Estim Creat Clear Calc 39.41, Est GFR (MDRD) Af Amer 59 L, Est GFR (MDRD) Non-Af 48 L, BUN/Creatinine Ratio 11.4, Glucose 143 H, Calcium 8.7, Total Bilirubin 1.50 H, AST 53 H, ALT 22, Alkaline Phosphatase 117, Total Protein 6.4, Albumin 1.9 L, Globulin 4.5 H, Albumin/Globulin Ratio 0.4 L 08/26/21 07:08: Phosphorus 2.0 L, Magnesium 2.1 08/26/21 11:21: POC Glucose 232 H 08/26/21 16:37: POC Glucose 219 H 08/26/21 20:56: POC Glucose 294 H 08/27/21 06:50: WBC 4.9, RBC 4.23 L, Hgb 12.0 L, Hct 36.7 L, MCV 86.8, MCH 28.4, MCHC 32.7, RDW Std Deviation 45.0 H, RDW Coeff of Rosa 14.9 H, Plt Count 169, MPV 9.6, Immature Gran % (Auto) 0.400, Neut % (Auto) 78.0 H, Lymph % (Auto) 14.6 L, [place] % (Auto) 4.7, Eos % (Auto) 2.1, Baso % (Auto) 0.2, Absolute Neuts (auto) 3.8, Absolute Lymphs (auto) 0.71 L, Nucleated RBC % 0.4 08/27/21 06:50: Sodium 132 L, Potassium 3.5, Chloride 97 L, Carbon Dioxide 27.0, Anion Gap 8, BUN 18, Creatinine 1.42 H, Estim Creat Clear Calc 41.24, Est GFR (MDRD) Af Amer 62, Est GFR (MDRD) Non-Af 51 L, BUN/Creatinine Ratio 12.7, Glucose 99, Calcium 8.1 L, Total Bilirubin 0.80, AST 35, ALT 18, Alkaline Phosphatase 107, Total Protein 6.1 L, Albumin 1.7 L, Globulin 4.4 H, Albumin/Gl obulin Ratio 0.4 L Micro: Microbiology 08/21/21 10:20 Blood Culture (Wb) - Left Wrist Blood Culture - Final No growth in 5 days. 08/21/21 09:52 Blood Culture (Wb) - Left Forearm Blood Culture - Final No growth in 5 days. 08/21/21 10:20 Urine, Clean Catch Urine Culture - Final Culture exhibits no growth. 08/21/21 10:10 Mucosa - Nasopharyngeal Influenza Types A,B Direct FA (SB) - Final 08/21/21 09:52 Nasal Secretion SARS-CoV-2 Antigen (Rapid) - Final SARS-CoV-2 (COVID 19) Physical Exam Narrative General: Alert, Oriented x3, Cooperative HEENT: Atraumatic, PERRLA, EOMI, Normocephalic Oral: No Gingival or Mucosal Lesions/ Ulcerations Neck: Supple, No JVD, Negative Carotid Bruits Lungs: Air entry bilaterally severely diminished. Mild expiratory rhonchi. Severe hypoxia. LANE Cardiovascular: Sinus rhythm, Normal S1, Normal S2, No murmurs Abdomen: Mild diarrhea. Bowel Sounds Present, Soft, Non Tender, Non-Distended : No renal angle tenderness. No suprapubic tenderness. Extremities: No edema, Capillary Refill Less than 3 Seconds Skin: No rashes, No breakdown Musculoskeletal: No Tenderness to Palpation of Joints or Extremities Neurological: Cranial nerves II-XII grossly intact, DTR 2+/4 Psych/Mental Status: Flat affect. Assessment & Plan Assessment/Plan (1) COVID-19: PLAN: 1. COVID-19 pneumonia-continue dexamethasone. Patient symptoms started 1 week before 08/14 and was admitted on 08/21. He is out of window of remdesivir. ID consult for baricitinib approval. 08/26: Respiratory status remains similar. Hypophosphatemia, phosphorus getting placed 08/27: Transaminases normal. K3.5. Potassium replaced. Repeat chest x-ray ordered #2 MAC infection of the lungs- continue azithromycin ethambutol and rifampin. #3 Acute on chronic hypoxic respiratory failure- patient is on 15 L of oxygen. #4 chronic kidney disease stage IIIa: Mild improvement in creatinine. #5 restrictive lung disease/MAC #6 paroxysmal A. fib-patient is currently on full anticoagulation at this time. On Xarelto #7 type 2 diabetes mellitus pain #8 hyperlipidemia #9 essential hypertension #10 generalized debility-it may be necessary for the patient to go to a short- term half-way facility if the patient does not have any help at home. Charges/Coding Visit Charges Inpatient E&M: 62277 Subs Hosp L2
--- NOTE | 2021-08-27 09:34 | RAD_ITS ---
STUDY: X-RAY CHEST REASON FOR EXAM: Male, 76 years old. HYPOXIA, COVID TECHNIQUE: Single AP portable view of the chest. COMPARISON: Comparison is made with prior study dated 08/21/2021. FINDINGS: Stable elevation of the right hemidiaphragm. Progressive infiltrate is seen in the left lower lobe with increased reticular nodular pattern in the left upper lobe. Progressive increase interstitial markings in the right lung. Questionable 1.7 cm right paracardiac nodule. Normal size heart. Normal mediastinum and cari. Normal visualized pulmonary arteries. There is atherosclerotic tortuosity of the aortic arch and descending thoracic aorta. Normal visualized thoracic spine. Normal visualized ribs, clavicles, and shoulders. There is no demonstrated abnormality of the visualized soft tissue structures of the upper abdomen. RAD/Chest 1 View (Portable) IMPRESSION: Progressive bilateral pulmonary infiltrates as compared to prior study. Electronically Signed: Maxi Austin MD at 9:59 EST , Service support ,
[2021-08-27] MEDS: dexAMETHasone 4 MG Tablet 6 MG PO (10:46)
[2021-08-27] MEDS: TICAGRELOR 90 MG TABLET PO ×2 (10:48→21:34)
[2021-08-27] MEDS: Losartan Potassium 25 MG Tablet PO (10:48)
[2021-08-27] MEDS: Na Biphos/Potassium Phosphate PACKET 1 PACKET PO (10:48)
[2021-08-27] MEDS: guaiFENesin/D-Methorphan TAB.SR.12H 1 TABLET PO ×2 (10:49→21:34)
[2021-08-27] MEDS: amLODIPine 2.5 MG Tablet PO (10:51)
[2021-08-27] MEDS: Pantoprazole Sodium 40 MG Tablet PO (10:51)
[2021-08-27] MEDS: rifAMPin 300 MG Capsule 600 MG PO (10:52)
[2021-08-27] MEDS: Menthol/Lanolin/Calamine/Znox 113 GM Tube 1 APPLIC TOPICAL ×2 (10:53→21:41)
[2021-08-27] MEDS: Azithromycin 250 MG Tablet 500 MG PO (10:53)
[2021-08-27 11:21] LABS: Bedside Glucose 110 mg/dL (70-110)
[2021-08-27 12:15] LABS: Bedside Glucose 137 mg/dL (70-110)
--- NOTE | 2021-08-27 13:55 | PN.CC_ITS ---
Assessment & Plan Assessment/Plan (1) Interstitial lung disease: (2) Mycobacterium avium complex: (3) Pneumonia due to 2019-nCoV: (4) Chronic respiratory failure with hypoxia: (5) CKD (chronic kidney disease) stage 3, GFR 30-59 ml/min: (6) RENEE (obstructive sleep apnea): (7) Paroxysmal atrial fibrillation: PLAN: RECOMMENDATIONS: 1. 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 2. Continue to wean FiO2 for saturations greater than 90%. 3. Continue Decadron to complete 10 days of therapy. 4. Continue Xarelto per home regimen. 5. Diuretics as needed to maintain euvolemic state. IMPRESSIONS: 1. Acute COVID-19 infection in the setting of restrictive lung disease secondary to MAC The patient's oxygenation status has been worsening over the course of his hospitalization. He remains on appropriate antimicrobial therapy to address his underlying MAC infection. In addition, the patient remains on Decadron and his home Xarelto regimen. He is not a candidate for baricitinib. Continue current supportive measures including oxygen to maintain saturations at or above 90%. If the patient were to worsen from an oxygenation perspective, BiPAP can be utilized. 2. Paroxysmal A. fib/PAD/renal artery stenosis/CKD/advanced age/diabetes mellitus Complicates care, management, recovery and prognosis. Continue home medications as indicated. This note was generated with [employer] dictation software. It may contain incorrect words, spelling, and punctuation that were not noted in checking the note before signing. Subjective Subjective The patient was seen and examined at the bedside this morning. Events from the last 24 hours have been reviewed. The patient is currently afebrile, hemodynamically stable and maintaining appropriate oxygen saturations on Airvo heated high flow with an FiO2 requirement of 78%. The patient is currently documented to be overall net +1.5 L for the hospitalization. He still appears quite fatigued, sitting in the bedside recliner. He does report the presence of shortness of breath. Creatinine is stable at 1.42. Objective Data Objective Data The patient's most recent lab work, culture data and imaging studies have all been personally reviewed. Rapid coronavirus antigen testing was positive on August 21. Vital Signs: Vital Signs Temp Pulse Resp BP Pulse Ox 99.7 F H 75 18 153/71 H 94 08/27/21 11:59 08/27/21 07:48 08/27/21 07:48 08/27/21 07:48 08/27/21 08:53 Oxygen Flow Rate (L/min) 55 Oxygen Delivery Method Airvo Weight: 68 kg Body Mass Index (BMI) 22.7 Intake & Output: Intake and Output for Last 24 Hours 08/25/21 08/26/21 08/27/21 23:59 23:59 23:59 Intake Total 540 / 540 200 / 200 Output Total 925 / 925 175 / 175 200 / 200 Balance -385 / -385 -200 / -200 Lab / Micro Data Attestation: I reviewed the patient's lab results. Result Diagrams: 08/27/21 06:50 08/27/21 06:50 Labs: Laboratory Results - last 24 hr 08/26/21 16:37: POC Glucose 219 H 08/26/21 20:56: POC Glucose 294 H 08/27/21 06:29: POC Glucose 110 08/27/21 06:50: WBC 4.9, RBC 4.23 L, Hgb 12.0 L, Hct 36.7 L, MCV 86.8, MCH 28.4, MCHC 32.7, RDW Std Deviation 45.0 H, RDW Coeff of Rosa 14.9 H, Plt Count 169, MPV 9.6, Immature Gran % (Auto) 0.400, Neut % (Auto) 78.0 H, Lymph % (Auto) 14.6 L, [place] % (Auto) 4.7, Eos % (Auto) 2.1, Baso % (Auto) 0.2, Absolute Neuts (auto) 3.8, Absolute Lymphs (auto) 0.71 L, Nucleated RBC % 0.4 08/27/21 06:50: Sodium 132 L, Potassium 3.5, Chloride 97 L, Carbon Dioxide 27.0, Anion Gap 8, BUN 18, Creatinine 1.42 H, Estim Creat Clear Calc 41.24, Est GFR (MDRD) Af Amer 62, Est GFR (MDRD) Non-Af 51 L, BUN/Creatinine Ratio 12.7, Glucose 99, Calcium 8.1 L, Total Bilirubin 0.80, AST 35, ALT 18, Alkaline Phosphatase 107, Total Protein 6.1 L, Albumin 1.7 L, Globulin 4.4 H, Albumin/Globulin Ratio 0.4 L 08/27/21 11:53: POC Glucose 137 H Micro: Microbiology 08/21/21 10:20 Blood Culture (Wb) - Left Wrist Blood Culture - Final No growth in 5 days. 08/21/21 09:52 Blood Culture (Wb) - Left Forearm Blood Culture - Final No growth in 5 days. 08/21/21 10:20 Urine, Clean Catch Urine Culture - Final Culture exhibits no growth. 08/21/21 10:10 Mucosa - Nasopharyngeal Influenza Types A,B Direct FA (SB) - Final 08/21/21 09:52 Nasal Secretion SARS-CoV-2 Antigen (Rapid) - Final SARS-CoV-2 (COVID 19) Radiography Diagnostic Testing: Radiology Impression Chest X-Ray 08/27/21 09:34 IMPRESSION: Progressive bilateral pulmonary infiltrates as compared to prior study. Electronically Signed: Maxi Austin MD at 9:59 EST , Service support , Physical Exam Const alert Constitutional Narrative: Sitting in bedside recliner with heated high flow circuit in place. General Appearance: cooperative and ill appearing HEENT normocephalic and head/scalp atraumatic Eyes PERRL, EOMs intact bilaterally and conjunctivae normal Neck supple General: trachea midline Chest inspection of chest normal Resp Auscultation: rales and diminished lung sounds Cardio regular rate and regular rhythm GI normal to inspection, nondistended, normoactive bowel sounds Extremity no clubbing, cyanosis or edema Skin no rashes or lesions noted Neuro CN's II-XII intact bilaterally, moves all extremities and no focal motor deficits Psych Mood & Affect: flat affect Charges/Coding Visit Charges Inpatient E&M: 78879 Subs Hosp L3
[2021-08-27] MEDS: 0.9% Saline Lock 10 ML Syringe IV (14:18)
[2021-08-27] MEDS: Furosemide 40 MG/4 ML Vial IV (14:18)
[2021-08-27] MEDS: Rivaroxaban 15 MG Tablet PO (16:37)
[2021-08-27] MEDS: Insulin Lispro 100 UNIT/ML INSULN.PEN SC (16:41)
[2021-08-27] MEDS: Atorvastatin Calcium 40 MG Tablet PO (21:34)
[2021-08-27 21:55] LABS: Bedside Glucose 218 mg/dL (70-110)
[2021-08-27 22:56] LABS: Bedside Glucose 212 mg/dL (70-110)
[2021-08-28] VITALS (10 sets, daily range): BP systolic 102–140; BP diastolic 50–72; PULSE 66–86; RESP 16–22; TEMP 36.8–38.3; O2SAT 90–95
[2021-08-28] MEDS: Acetaminophen 325 MG Tablet 650 MG PO ×2 (00:34→08:41)
[2021-08-28] MEDS: Propranolol 40 MG Tablet 80 MG PO ×3 (06:17→20:24)
[2021-08-28 06:45] LABS: Bedside Glucose 72 mg/dL (70-110)
[2021-08-28] MEDS: Potassium Chloride Oral Tablet 20 MEQ 40 MEQ PO (08:43)
[2021-08-28] MEDS: Losartan Potassium 25 MG Tablet PO (08:43)
[2021-08-28] MEDS: TICAGRELOR 90 MG TABLET PO ×2 (08:43→20:24)
[2021-08-28] MEDS: dexAMETHasone 4 MG Tablet 6 MG PO (08:43)
[2021-08-28] MEDS: guaiFENesin/D-Methorphan TAB.SR.12H 1 TABLET PO ×2 (08:44→20:24)
[2021-08-28] MEDS: Pantoprazole Sodium 40 MG Tablet PO (08:44)
[2021-08-28] MEDS: amLODIPine 2.5 MG Tablet PO (08:44)
[2021-08-28] MEDS: Menthol/Lanolin/Calamine/Znox 113 GM Tube 1 APPLIC TOPICAL ×2 (08:49→20:23)
[2021-08-28 12:26] LABS: Bedside Glucose 104 mg/dL (70-110)
[2021-08-28] MEDS: Ferrous Sulfate 325 MG Tablet PO (13:53)
--- NOTE | 2021-08-28 14:47 | PCM.PN.HOSP ---
Subjective Subjective Patient feels more or less same but reported very minor improvement in shortness of breath. Intermittent fever, temperature 101 Fahrenheit. 10 L of high flow oxygen. Objective Data Objective Data Vital Signs: Vital Signs Temp Pulse Resp BP Pulse Ox 98.9 F 66 16 140/50 H 95 08/28/21 13:44 08/28/21 13:44 08/28/21 13:44 08/28/21 13:44 08/28/21 13:44 Oxygen Flow Rate (L/min) 10 Oxygen Delivery Method High Flow Weight: 150 lb 12.739 oz Body Mass Index (BMI) 22.7 Intake & Output: Intake and Output for Last 24 Hours 08/26/21 08/27/21 08/28/21 23:59 23:59 23:59 Intake Total 200 / 200 Output Total 175 / 175 200 / 200 Balance -200 / -200 Medical Nutrition Assessment Dietitian: Malnutrition Criteria Met Start: 08/27/21 16:22 Freq: Status: Active Protocol: Document 08/27/21 16:22 FRAN (Rec: 08/27/21 16:22 FRAN [id number]) Nutrition Malnutrition Evidence of Malnutrition Exists Yes Malnutrition (severe): Acute Illness/Injury Evidenced By Suboptimal Energy Intake ( Severe),Weight Loss (Severe) Intake Problem Inadequate Oral Intake Status Inactive Problem Clinical Problem Acute Disease or Injury Related Malnutrition Etiology related to COVID and inability to consume adequate nutrition to meet est nutritional needs Signs/Symptoms as evidenced by 5.6% wt loss and <50% po intake at meals x >5 days Status Active Problem Recommendation Dietitian Recommendations/Changes Will liberalize diet to Regular No Added Salt w/ 4 oz ensure compact w/ meals, for increased nutrition if consumed, d/t signs/symptoms of malnutrition Lab / Micro Data Result Diagrams: 08/27/21 06:50 08/27/21 06:50 Labs: Laboratory Results - last 24 hr 08/27/21 16:39: POC Glucose 212 H 08/27/21 21:30: POC Glucose 218 H 08/28/21 06:14: POC Glucose 72 08/28/21 12:19: POC Glucose 104 Micro: Microbiology 08/21/21 10:20 Blood Culture (Wb) - Left Wrist Blood Culture - Final No growth in 5 days. 08/21/21 09:52 Blood Culture (Wb) - Left Forearm Blood Culture - Final No growth in 5 days. 08/21/21 10:20 Urine, Clean Catch Urine Culture - Final Culture exhibits no growth. 08/21/21 10:10 Mucosa - Nasopharyngeal Influenza Types A,B Direct FA (SB) - Final 08/21/21 09:52 Nasal Secretion SARS-CoV-2 Antigen (Rapid) - Final SARS-CoV-2 (COVID 19) Physical Exam Narrative General: Alert, Oriented x3, Cooperative HEENT: Atraumatic, PERRLA, EOMI, Normocephalic Oral: No Gingival or Mucosal Lesions/ Ulcerations Neck: Supple, No JVD, Negative Carotid Bruits Lungs: Air entry bilaterally severely diminished. Mild expiratory rhonchi. Severe hypoxia. LANE Cardiovascular: Sinus rhythm, Normal S1, Normal S2, No murmurs Abdomen: Mild diarrhea. Bowel Sounds Present, Soft, Non Tender, Non-Distended : No renal angle tenderness. No suprapubic tenderness. Extremities: No edema, Capillary Refill Less than 3 Seconds Skin: No rashes, No breakdown Musculoskeletal: No Tenderness to Palpation of Joints or Extremities Neurological: Cranial nerves II-XII grossly intact, DTR 2+/4 Psych/Mental Status: Flat affect. Assessment & Plan Assessment/Plan (1) COVID-19: PLAN: 1. COVID-19 pneumonia-continue dexamethasone. Patient symptoms started 1 week before 08/14 and was admitted on 08/21. He is out of window of remdesivir. ID consult for baricitinib approval. 08/26: Respiratory status remains similar. Hypophosphatemia, phosphorus getting placed 08/27: Transaminases normal. K3.5. Potassium replaced. 08/28: Patient reports slight improvement in shortness of breath but oxygen requirement is still high. Chest x-ray on 08/27 shows progressive bilateral pulmonary infiltrate as compared to prior study. Floor Layer Apprentice on board. Not a candidate for baricitinib because of ongoing MAC/ANN infection #2 MAC infection of the lungs- continue azithromycin ethambutol and rifampin. #3 Acute on chronic hypoxic respiratory failure- patient is on 15 L of oxygen. #4 chronic kidney disease stage IIIa: Mild improvement in creatinine. 08/28: Labs reviewed. Improvement in creatinine noted. #5 restrictive lung disease/MAC #6 paroxysmal A. fib-patient is currently on full anticoagulation at this time. On Xarelto #7 type 2 diabetes mellitus pain #8 hyperlipidemia #9 essential hypertension #10 generalized debility-it may be necessary for the patient to go to a short-term residential facility if the patient does not have any help at home. Clinical Impression(s) from Imaging Studies Chest X-Ray 08/21/21 09:58 IMPRESSION: Progressive infiltrate in the peripheral lateral aspect of the right upper lobe. Pulmonary infiltrate should be ruled out. Stable elevation of the right hemidiaphragm. Chest CT 08/21/21 15:30 IMPRESSION: Right upper lobe pneumonia. Chest X-Ray 08/27/21 09:34 IMPRESSION: Progressive bilateral pulmonary infiltrates as compared to prior study. Electronically Signed: Maxi Austin MD at 9:59 EST , Service support , Charges/Coding Visit Charges Inpatient E&M: 59240 Subs Hosp L2
[2021-08-28] MEDS: Insulin Lispro 100 UNIT/ML INSULN.PEN SC (16:30)
[2021-08-28] MEDS: Rivaroxaban 15 MG Tablet PO (16:30)
[2021-08-28 20:16] LABS: Bedside Glucose 273 mg/dL (70-110)
[2021-08-28] MEDS: Atorvastatin Calcium 40 MG Tablet PO (20:24)
[2021-08-29] VITALS (9 sets, daily range): BP systolic 109–154; BP diastolic 61–84; PULSE 69–84; RESP 18–30; TEMP 36.6–37.7; O2SAT 93–96
[2021-08-29 06:25] LABS: Bedside Glucose 280 mg/dL (70-110)
[2021-08-29] MEDS: Propranolol 40 MG Tablet 80 MG PO ×3 (06:50→21:56)
[2021-08-29] MEDS: Potassium Chloride Oral Tablet 20 MEQ 40 MEQ PO (09:04)
[2021-08-29] MEDS: Menthol/Lanolin/Calamine/Znox 113 GM Tube 1 APPLIC TOPICAL ×2 (10:25→22:03)
[2021-08-29] MEDS: dexAMETHasone 4 MG Tablet 6 MG PO (10:26)
[2021-08-29] MEDS: Losartan Potassium 25 MG Tablet PO (10:26)
[2021-08-29] MEDS: guaiFENesin/D-Methorphan TAB.SR.12H 1 TABLET PO ×2 (10:27→21:56)
[2021-08-29] MEDS: amLODIPine 2.5 MG Tablet PO (10:27)
[2021-08-29] MEDS: TICAGRELOR 90 MG TABLET PO ×2 (10:27→21:56)
[2021-08-29] MEDS: Pantoprazole Sodium 40 MG Tablet PO (10:28)
[2021-08-29] MEDS: rifAMPin 300 MG Capsule 600 MG PO (10:28)
[2021-08-29] MEDS: Azithromycin 250 MG Tablet 500 MG PO (10:29)
--- NOTE | 2021-08-29 11:22 | PN.CC_ITS ---
Assessment & Plan Assessment/Plan (1) Interstitial lung disease: (2) Mycobacterium avium complex: (3) Pneumonia due to 2019-nCoV: (4) Chronic respiratory failure with hypoxia: (5) CKD (chronic kidney disease) stage 3, GFR 30-59 ml/min: (6) RENEE (obstructive sleep apnea): (7) Paroxysmal atrial fibrillation: PLAN: RECOMMENDATIONS: 1. 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 2. Continue to wean oxygen for saturations greater than 90%. 3. Continue Decadron to complete 10 days of therapy. 4. Continue Xarelto per home regimen. 5. Diuretics as needed to maintain euvolemic state. IMPRESSIONS: 1. Acute COVID-19 infection in the setting of restrictive lung disease secondary to MAC The patient's oxygenation status has been worsening over the course of his hospitalization. He remains on appropriate antimicrobial therapy to address his underlying MAC infection. In addition, the patient remains on Decadron and his home Xarelto regimen. He was not a candidate for baricitinib. Continue current supportive measures including oxygen to maintain saturations at or above 90%. Oxygenation status appears to be slowly improving with time. 2. Paroxysmal A. fib/PAD/renal artery stenosis/CKD/advanced age/diabetes mellitus Complicates care, management, recovery and prognosis. Continue home medications as indicated. This note was generated with Digital Message Display dictation software. It may contain incorrect words, spelling, and punctuation that were not noted in checking the note before signing. Subjective Subjective The patient was seen and examined at the bedside this morning. Events from the last 24 hours have been reviewed. The patient is currently afebrile, hemodynamically stable and maintaining appropriate oxygen saturations on 15 L/min high flow nasal cannula. The patient is currently documented to be overall net +1.9 L for the hospitalization. The patient remains on Decadron and his baseline Xarelto regimen. Objective Data Objective Data The patient's most recent lab work, culture data and imaging studies have all been personally reviewed. Rapid coronavirus antigen testing was positive on August 21. Vital Signs: Vital Signs Temp Pulse Resp BP Pulse Ox 97.9 F 83 30 H 154/61 H 93 08/29/21 10:00 08/29/21 10:00 08/29/21 10:00 08/29/21 10:00 08/29/21 10:00 Oxygen Flow Rate (L/min) 15 Oxygen Delivery Method High Flow Weight: 69.6 kg Body Mass Index (BMI) 22.7 Intake & Output: Intake and Output for Last 24 Hours 08/27/21 08/28/21 08/29/21 23:59 23:59 23:59 Intake Total 500 / 500 Output Total 200 / 200 Balance -200 / -200 500 / 500 Medical Nutrition Assessment Dietitian: Malnutrition Criteria Met Start: 08/27/21 16:22 Freq: Status: Active Protocol: Document 08/27/21 16:22 [facility] (Rec: 08/27/21 16:22 [facility] [id number]) Nutrition Malnutrition Evidence of Malnutrition Exists Yes Malnutrition (severe): Acute Illness/Injury Evidenced By Suboptimal Energy Intake ( Severe),Weight Loss (Severe) Intake Problem Inadequate Oral Intake Status Inactive Problem Clinical Problem Acute Disease or Injury Related Malnutrition Etiology related to COVID and inability to consume adequate nutrition to meet est nutritional needs Signs/Symptoms as evidenced by 5.6% wt loss and <50% po intake at meals x >5 days Status Active Problem Recommendation Dietitian Recommendations/Changes Will liberalize diet to Regular No Added Salt w/ 4 oz ensure compact w/ meals, for increased nutrition if consumed, d/t signs/symptoms of malnutrition Lab / Micro Data Attestation: I reviewed the patient's lab results. Result Diagrams: 08/27/21 06:50 08/27/21 06:50 Labs: Laboratory Results - last 24 hr 08/28/21 12:19: POC Glucose 104 08/28/21 16:28: POC Glucose 273 H 08/28/21 20:23: POC Glucose 280 H Micro: Microbiology 08/21/21 10:20 Blood Culture (Wb) - Left Wrist Blood Culture - Final No growth in 5 days. 08/21/21 09:52 Blood Culture (Wb) - Left Forearm Blood Culture - Final No growth in 5 days. 08/21/21 10:20 Urine, Clean Catch Urine Culture - Final Culture exhibits no growth. 08/21/21 10:10 Mucosa - Nasopharyngeal Influenza Types A,B Direct FA (SB) - Final 08/21/21 09:52 Nasal Secretion SARS-CoV-2 Antigen (Rapid) - Final SARS-CoV-2 (COVID 19) Physical Exam Const alert General Appearance: cooperative and ill appearing HEENT normocephalic and head/scalp atraumatic Eyes PERRL, EOMs intact bilaterally and conjunctivae normal Neck supple General: trachea midline Chest inspection of chest normal Resp Auscultation: rales and diminished lung sounds Cardio regular rate and regular rhythm GI normal to inspection, nondistended, normoactive bowel sounds Extremity no clubbing, cyanosis or edema Skin no rashes or lesions noted Neuro CN's II-XII intact bilaterally, moves all extremities and no focal motor deficits Psych Mood & Affect: flat affect Charges/Coding Visit Charges Inpatient E&M: 79229 Subs Hosp L2
[2021-08-29 13:26] LABS: Bedside Glucose 83 mg/dL (70-110)
--- NOTE | 2021-08-29 14:02 | PN.HOSP_ITS ---
Subjective Subjective Patient advised on prone positioning. Not significant improvement in shortness of breath. Mild low-grade fever T-max 100.6 Fahrenheit Objective Data Objective Data Vital Signs: Vital Signs Temp Pulse Resp BP Pulse Ox 97.9 F 83 30 H 154/61 H 93 08/29/21 10:00 08/29/21 10:00 08/29/21 10:00 08/29/21 10:00 08/29/21 10:00 Oxygen Flow Rate (L/min) 15 Oxygen Delivery Method High Flow Weight: 153 lb 7.068 oz Body Mass Index (BMI) 22.7 Intake & Output: Intake and Output for Last 24 Hours 08/27/21 08/28/21 08/29/21 23:59 23:59 23:59 Intake Total 500 / 500 Output Total 200 / 200 Balance -200 / -200 500 / 500 Medical Nutrition Assessment Dietitian: Malnutrition Criteria Met Start: 08/27/21 16:22 Freq: Status: Active Protocol: Document 08/27/21 16:22 FRAN (Rec: 08/27/21 16:22 [facility] [id number]) Nutrition Malnutrition Evidence of Malnutrition Exists Yes Malnutrition (severe): Acute Illness/Injury Evidenced By Suboptimal Energy Intake ( Severe),Weight Loss (Severe) Intake Problem Inadequate Oral Intake Status Inactive Problem Clinical Problem Acute Disease or Injury Related Malnutrition Etiology related to COVID and inability to consume adequate nutrition to meet est nutritional needs Signs/Symptoms as evidenced by 5.6% wt loss and <50% po intake at meals x >5 days Status Active Problem Recommendation Dietitian Recommendations/Changes Will liberalize diet to Regular No Added Salt w/ 4 oz ensure compact w/ meals, for increased nutrition if consumed, d/t signs/symptoms of malnutrition Lab / Micro Data Result Diagrams: 08/27/21 06:50 08/27/21 06:50 Labs: Laboratory Results - last 24 hr 08/28/21 16:28: POC Glucose 273 H 08/28/21 20:23: POC Glucose 280 H 08/29/21 13:01: POC Glucose 83 Micro: Microbiology 08/21/21 10:20 Blood Culture (Wb) - Left Wrist Blood Culture - Final No growth in 5 days. 08/21/21 09:52 Blood Culture (Wb) - Left Forearm Blood Culture - Final No growth in 5 days. 08/21/21 10:20 Urine, Clean Catch Urine Culture - Final Culture exhibits no growth. 08/21/21 10:10 Mucosa - Nasopharyngeal Influenza Types A,B Direct FA (SB) - Final 08/21/21 09:52 Nasal Secretion SARS-CoV-2 Antigen (Rapid) - Final SARS-CoV-2 (COVID 19) Physical Exam Narrative Denies dysuria. Moved bowel on 08/28. General: Alert, Oriented x3, Cooperative HEENT: Atraumatic, PERRLA, EOMI, Normocephalic Oral: No Gingival or Mucosal Lesions/ Ulcerations Neck: Supple, No JVD, Negative Carotid Bruits Lungs: Air entry bilaterally severely diminished. Mild bilateral inspiratory rales. Severe hypoxia. Cardiovascular: Sinus rhythm, Normal S1, Normal S2, No murmurs Abdomen Bowel Sounds Present, Soft, Non Tender, Non-Distended : No renal angle tenderness. No suprapubic tenderness. Extremities: No edema, Capillary Refill Less than 3 Seconds Skin: No rashes, No breakdown Musculoskeletal: No Tenderness to Palpation of Joints or Extremities Neurological: Cranial nerves II-XII grossly intact, DTR 2+/4 Psych/Mental Status: Flat affect. Assessment & Plan Assessment/Plan (1) COVID-19: PLAN: 1. COVID-19 pneumonia-continue dexamethasone. Patient symptoms started 1 week before 08/14 and was admitted on 08/21. He is out of window of remdesivir. ID consult for baricitinib approval. 08/26: Respiratory status remains similar. Hypophosphatemia, phosphorus getting placed 08/27: Transaminases normal. K3.5. Potassium replaced. 08/28: Patient reports slight improvement in shortness of breath but oxygen requirement is still high. Chest x-ray on 08/27 shows progressive bilateral pulmonary infiltrate as compared to prior study. Potash Flaker on board. Not a candidate for baricitinib because of ongoing MAC/ANN infection 08/29: Prone positioning. Aggressive incentive spirometry and Pep. Labs ordered. Remain on 15 L of oxygen I-Flow. #2 MAC infection of the lungs- continue azithromycin ethambutol and rifampin. #3 Acute on chronic hypoxic respiratory failure- patient is on 15 L of oxygen. #4 chronic kidney disease stage IIIa: Mild improvement in creatinine. #5 restrictive lung disease/MAC #6 paroxysmal A. fib-patient is currently on full anticoagulation at this time. On Xarelto #7 type 2 diabetes mellitus pain #8 hyperlipidemia #9 essential hypertension #10 generalized debility-it may be necessary for the patient to go to a short- term care home facility if the patient does not have any help at home. Clinical Impression(s) from Imaging Studies Chest X-Ray 08/21/21 09:58 IMPRESSION: Progressive infiltrate in the peripheral lateral aspect of the right upper lobe. Pulmonary infiltrate should be ruled out. Stable elevation of the right hemidiaphragm. Chest CT 08/21/21 15:30 IMPRESSION: Right upper lobe pneumonia. Chest X-Ray 08/27/21 09:34 IMPRESSION: Progressive bilateral pulmonary infiltrates as compared to prior study. Electronically Signed: Maxi Austin MD at 9:59 EST , Service support , Active Medications Acetaminophen (Acetaminophen 325 Mg Tablet) 650 mg PO Q4H PRN PRN PRN Reason: fever, pain 1-10 Last Admin: 08/28/21 08:41 Dose: 650 mg Documented by: Albuterol Sulfate (Albuterol 2.5 Mg/3 Ml Vial.Neb.) 2.5 mg INHALATION Q4H PRN PRN Reason: Sob &/Or Wheezing Amlodipine Besylate (Amlodipine 2.5 Mg Tablet) 2.5 mg PO DAILY [facility] Last Admin: 08/29/21 10:27 Dose: 2.5 mg Documented by: Atorvastatin Calcium (Atorvastatin Calcium 40 Mg Tablet) 40 mg PO QHS [facility] Last Admin: 08/28/21 20:24 Dose: 40 mg Documented by: Azithromycin (Azithromycin 250 Mg Tablet) 500 mg PO MOWEFR [facility] Last Admin: 08/29/21 10:29 Dose: 500 mg Documented by: Calamine/Phenol (Menthol/Lanolin/Calamine/Znox 113 Gm Tube) 1 applic TOPICAL BID [facility]; Protocol Last Admin: 08/29/21 10:25 Dose: 1 applic Documented by: Dexamethasone (Dexamethasone 4 Mg Tablet) 6 mg PO DAILY [facility] Stop: 09/01/21 10:00 Last Admin: 08/29/21 10:26 Dose: 6 mg Documented by: Ethambutol HCl (Ethambutol Hcl 400 Mg Tablet) 1,600 mg PO MoWeFr@1000 [facility] Last Admin: 08/29/21 09:03 Dose: 1,600 mg Documented by: Ferrous Sulfate (Ferrous Sulfate 325 Mg Tablet) 325 mg PO QODAY@1200 [facility] Last Admin: 08/28/21 13:53 Dose: 325 mg Documented by: Guaifenesin (Guaifenesin/D-Methorphan Tab.Sr.12h) 1 tablet PO BID [facility] Last Admin: 08/29/21 10:27 Dose: 1 tablet Documented by: Sodium Chloride () 250 mls @ 15 mls/hr IV .[id number] PRN PRN Reason: Saline Flush Last Infusion: 08/23/21 19:03 Dose: Infused Documented by: Insulin Glargine (Insulin Glargine 100 Units/Ml Pen) 26 units SC QHS [facility] Last Admin: 08/28/21 20:24 Dose: 26 u Documented by: Insulin Human Lispro (Insulin Lispro 100 Unit/Ml Insuln.Pen) 0 unit SC TIDAC [facility]; Protocol Last Admin: 08/29/21 13:14 Dose: Not Given Documented by: Losartan Potassium (Losartan Potassium 25 Mg Tablet) 25 mg PO DAILY [facility] Last Admin: 08/29/21 10:26 Dose: 25 mg Documented by: Ondansetron HCl (Ondansetron 4 Mg/2 Ml Vial) 4 mg IV Q8H PRN PRN PRN Reason: NAUSEA/VOMITING Last Admin: 08/24/21 09:13 Dose: 4 mg Documented by: Pantoprazole Sodium (Pantoprazole Sodium 40 Mg Tablet) 40 mg PO DAILY [facility] Last Admin: 08/29/21 10:28 Dose: 40 mg Documented by: Potassium Chloride (Potassium Chloride Oral Tablet 20 Meq) [facility] Stop: 08/31/21 08:01 Last Admin: 08/29/21 09:04 Dose: 40 meq Documented by: Propranolol HCl (Propranolol 40 Mg Tablet) 80 mg PO TID [facility] Last Admin: 08/29/21 13:16 Dose: 80 mg Documented by: Rifampin (Rifampin 300 Mg Capsule) 600 mg PO MoWeFr@1000 [facility] Last Admin: 08/29/21 10:28 Dose: 600 mg Documented by: Rivaroxaban (Rivaroxaban 15 Mg Tablet) 15 mg PO DINNER [facility] Last Admin: 08/28/21 16:30 Dose: 15 mg Documented by: Sodium Chloride (0.9% Saline Lock 10 Ml Syringe) 10 - 40 ml IV UD PRN PRN Reason: SALINE FLUSH Last Admin: 08/27/21 14:18 Dose: 10 ml Documented by: Ticagrelor (Ticagrelor 90 Mg Tablet) 90 mg PO BID [facility] Last Admin: 08/29/21 10:27 Dose: 90 mg Documented by: Charges/Coding Visit Charges Inpatient E&M: 06895 Subs Hosp L2
[2021-08-29 14:50] LABS: Absolute Lymphocyte Count 0.44 X10^3/uL (0.83-4.51); Absolute Neutrophil Count 4.9 X10^3/uL (2.0-7.7); Basophil# 0.01 X10^3/uL; Basophil% 0.2 % (0-1); Eosinophil# 0.03 X10^3/uL; Eosinophils% 0.5 % (0-5); Hematocrit 39.5 % (40-54); Hemoglobin 12.9 g/dL (13.0-16.5); Lymphocyte # 0.44 X10^3/ul (0.83-4.51); Lymphocyte % 7.6 % (19-41); Mean Corp Hgb Conc 32.7 g/dL (32-36); Mean Corpuscular Hgb 28.7 pg (27.0-32.0); Mean Corpuscular Volume 87.8 fL (80-94); Mean Platelet Vol. 9.1 fl (6.2-12.0); Monocyte# 0.35 X10^3/uL; NRBC Flagged by Analyzer 0 % (0-5); Neutrophil # 4.93 X10^3/uL (2.7-7.7); Neutrophil % 85.2 % (47-70); POSITIVE DIFFERENTIAL YES; Platelet Count 273 K/mm3 (150-450); RBC Distribution Width CV 14.7 % (11.6-14.6); RBC Distribution Width SD 45.5 fl (35.1-43.9); White Blood Count 5.8 K/mm3 (4.4-11.0)
[2021-08-29 14:51] LABS: Differential Indicated SCAN CRITERIA MET
[2021-08-29 15:19] LABS: Anion Gap 5 (5-15); BUN 25 mg/dL (7-18); BUN/Creat Ratio 16.3 RATIO (10-20); Calcium,Total 9.1 mg/dL (8.5-10.1); Chloride 102 mmol/L (98-107); Creatinine, Serum 1.53 mg/dL (0.70-1.30); EST Glomerular Filtration Rate 47 mL/min (>60); Est Glom Filt Rate - Afr Amer 57 mL/min (>60); Estimated Creatinine Clearance 39.17 ml/min; Glucose 148 mg/dL (74-106); Phosphorus 2.2 mg/dL (2.5-4.9); Sodium Level 133 mmol/L (136-145)
[2021-08-29 15:27] LABS: Platelet Estimate ADEQUATE (ADEQ); Red Cell Morphology NORM C+C NORMAL (NORM C&C)
[2021-08-29] MEDS: Rivaroxaban 15 MG Tablet PO (17:30)
[2021-08-29 18:15] LABS: Bedside Glucose 122 mg/dL (70-110)
[2021-08-29 18:31] LABS: Bedside Glucose 264 mg/dL (70-110)
[2021-08-29] MEDS: Atorvastatin Calcium 40 MG Tablet PO (21:56)
[2021-08-29] MEDS: Acetaminophen 325 MG Tablet 650 MG PO (22:02)
[2021-08-29 22:45] LABS: Bedside Glucose 419 mg/dL (70-110)
[2021-08-30] VITALS (15 sets, daily range): BP systolic 111–138; BP diastolic 63–70; PULSE 56–75; RESP 18–26; TEMP 36.7–37.6; O2SAT 91–100
[2021-08-30] MEDS: Propranolol 40 MG Tablet 80 MG PO ×3 (06:03→21:32)
[2021-08-30] MEDS: Insulin Lispro 100 UNIT/ML INSULN.PEN SC ×2 (06:04→17:01)
[2021-08-30 06:13] LABS: Absolute Lymphocyte Count 0.54 X10^3/uL (0.83-4.51); Absolute Neutrophil Count 2.5 X10^3/uL (2.0-7.7); Basophil# 0.01 X10^3/uL; Basophil% 0.3 % (0-1); Eosinophil# 0.12 X10^3/uL; Eosinophils% 3.4 % (0-5); Hematocrit 36.7 % (40-54); Hemoglobin 11.8 g/dL (13.0-16.5); Lymphocyte # 0.54 X10^3/ul (0.83-4.51); Lymphocyte % 15.3 % (19-41); Mean Corp Hgb Conc 32.2 g/dL (32-36); Mean Corpuscular Hgb 28.6 pg (27.0-32.0); Mean Corpuscular Volume 89.1 fL (80-94); Monocyte# 0.31 X10^3/uL; Monocyte% 8.8 % (0-10); NRBC Flagged by Analyzer 0 % (0-5); Neutrophil # 2.54 X10^3/uL (2.7-7.7); Neutrophil % 71.6 % (47-70); POSITIVE DIFFERENTIAL YES; Platelet Count 215 K/mm3 (150-450); RBC Distribution Width CV 14.3 % (11.6-14.6); RBC Distribution Width SD 45.5 fl (35.1-43.9); Red Blood Count 4.12 M/mm3 (4.6-6.2); White Blood Count 3.5 K/mm3 (4.4-11.0)
[2021-08-30 06:24] LABS: Differential Indicated SCAN CRITERIA MET
[2021-08-30 06:30] LABS: Bedside Glucose 213 mg/dL (70-110)
[2021-08-30 06:41] LABS: Differential Comment SCANNED
[2021-08-30 06:46] LABS: ALB/GLOB Ratio 0.3 RATIO (0.9-2.4); AST(SGOT) 26 U/L (15-37); Alanine Aminotransfer ALT/SGPT 14 U/L (16-61); Albumin, Serum 1.6 g/dL (3.2-5.0); Alkaline Phosphatase 115 U/L (45-117); Anion Gap 5 (5-15); BUN 27 mg/dL (7-18); BUN/Creat Ratio 16.3 RATIO (10-20); Calcium,Total 9.1 mg/dL (8.5-10.1); Chloride 98 mmol/L (98-107); Creatinine, Serum 1.66 mg/dL (0.70-1.30); EST Glomerular Filtration Rate 43 mL/min (>60); Est Glom Filt Rate - Afr Amer 52 mL/min (>60); Globulin 4.7 g/dL (2.2-4.2); Glucose 221 mg/dL (74-106); Potassium 4.6 mmol/L (3.5-5.1); Protein, Total 6.3 g/dL (6.4-8.2); Sodium Level 133 mmol/L (136-145)
[2021-08-30] MEDS: dexAMETHasone 4 MG Tablet 6 MG PO (08:44)
[2021-08-30] MEDS: Potassium Chloride Oral Tablet 20 MEQ 40 MEQ PO (08:45)
[2021-08-30] MEDS: Pantoprazole Sodium 40 MG Tablet PO (08:45)
[2021-08-30] MEDS: Losartan Potassium 25 MG Tablet PO (08:45)
[2021-08-30] MEDS: amLODIPine 2.5 MG Tablet PO (08:45)
[2021-08-30] MEDS: TICAGRELOR 90 MG TABLET PO ×2 (08:46→21:33)
[2021-08-30] MEDS: guaiFENesin/D-Methorphan TAB.SR.12H 1 TABLET PO ×2 (08:47→21:32)
[2021-08-30] MEDS: Menthol/Lanolin/Calamine/Znox 113 GM Tube 1 APPLIC TOPICAL ×2 (08:47→21:39)
--- NOTE | 2021-08-30 08:50 | CPS ---
Feliciano was called to room d/t pt desating with activity on 10lpm HFNC. placed pt back on Airvo @55lpm 90% to get his Sat into the 90's.
--- NOTE | 2021-08-30 10:13 | PN.HOSP_ITS ---
Subjective Subjective Low-grade fever, 100.6 Fahrenheit about 8 PM yesterday. Patient lately gets hypoxic when changing posture or exertion. Objective Data Objective Data Vital Signs: Vital Signs Temp Pulse Resp BP Pulse Ox 98.5 F 68 20 H 138/68 H 91 08/30/21 08:53 08/30/21 08:53 08/30/21 08:53 08/30/21 08:53 08/30/21 09:00 Oxygen Flow Rate (L/min) 10 Oxygen Delivery Method Airvo Weight: 152 lb 8.958 oz Body Mass Index (BMI) 22.7 Intake & Output: Intake and Output for Last 24 Hours 08/28/21 08/29/21 08/30/21 23:59 23:59 23:59 Intake Total 500 / 500 Balance 500 / 500 Medical Nutrition Assessment Dietitian: Malnutrition Criteria Met Start: 08/27/21 16:22 Freq: Status: Active Protocol: Document 08/27/21 16:22 FRAN (Rec: 08/27/21 16:22 [facility] [id number]) Nutrition Malnutrition Evidence of Malnutrition Exists Yes Malnutrition (severe): Acute Illness/Injury Evidenced By Suboptimal Energy Intake ( Severe),Weight Loss (Severe) Intake Problem Inadequate Oral Intake Status Inactive Problem Clinical Problem Acute Disease or Injury Related Malnutrition Etiology related to COVID and inability to consume adequate nutrition to meet est nutritional needs Signs/Symptoms as evidenced by 5.6% wt loss and <50% po intake at meals x >5 days Status Active Problem Recommendation Dietitian Recommendations/Changes Will liberalize diet to Regular No Added Salt w/ 4 oz ensure compact w/ meals, for increased nutrition if consumed, d/t signs/symptoms of malnutrition Lab / Micro Data Result Diagrams: 08/30/21 05:37 08/30/21 05:37 Labs: Laboratory Results - last 24 hr 08/29/21 06:50: POC Glucose 122 H 08/29/21 13:01: POC Glucose 83 08/29/21 14:18: WBC 5.8, RBC 4.50 L, Hgb 12.9 L, Hct 39.5 L, MCV 87.8, MCH 28.7, MCHC 32.7, RDW Std Deviation 45.5 H, RDW Coeff of Rosa 14.7 H, Plt Count 273, MPV 9.1, Immature Gran % (Auto) 0.500, Neut % (Auto) 85.2 H, Lymph % (Auto) 7.6 L, [place] % (Auto) 6.0, Eos % (Auto) 0.5, Baso % (Auto) 0.2, Absolute Neuts (auto) 4.9, Absolute Lymphs (auto) 0.44 L, Nucleated RBC % 0, Differential Comment , Platelet Estimate ADEQUATE, RBC Morphology NORM C+C 08/29/21 14:18: Sodium 133 L, Potassium 5.0, Chloride 102, Carbon Dioxide 26.0, Anion Gap 5, BUN 25 H, Creatinine 1.53 H, Estim Creat Clear Calc 39.17, Est GFR (MDRD) Af Amer 57 L, Est GFR (MDRD) Non-Af 47 L, BUN/Creatinine Ratio 16.3, Glucose 148 H, Calcium 9.1 08/29/21 14:18: Phosphorus 2.2 L, Magnesium 2.0 08/29/21 18:16: POC Glucose 264 H 08/29/21 21:50: POC Glucose 419 H 08/30/21 05:37: WBC 3.5 L, RBC 4.12 L, Hgb 11.8 L, Hct 36.7 L, MCV 89.1, MCH 28.6, MCHC 32.2, RDW Std Deviation 45.5 H, RDW Coeff of Rosa 14.3, Plt Count 215, MPV 9.0, Immature Gran % (Auto) 0.600, Neut % (Auto) 71.6 H, Lymph % (Auto) 15.3 L, [place] % (Auto) 8.8, Eos % (Auto) 3.4, Baso % (Auto) 0.3, Absolute Neuts (auto) 2.5, Absolute Lymphs (auto) 0.54 L, Nucleated RBC % 0, Differential Comment SCANNED, Diff Path Review January08/30/21 05:37: Sodium 133 L, Potassium 4.6, Chloride 98, Carbon Dioxide 30.0, Anion Gap 5, BUN 27 H, Creatinine 1.66 H, Estim Creat Clear Calc 35.90, Est GFR (MDRD) Af Amer 52 L, Est GFR (MDRD) Non-Af 43 L, BUN/Creatinine Ratio 16.3, Glucose 221 H, Calcium 9.1, Total Bilirubin 1.00, AST 26, ALT 14 L, Alkaline Phosphatase 115, Total Protein 6.3 L, Albumin 1.6 L, Globulin 4.7 H, Albumin/Globulin Ratio 0.3 L 08/30/21 05:59: POC Glucose 213 H Micro: Microbiology 08/21/21 10:20 Blood Culture (Wb) - Left Wrist Blood Culture - Final No growth in 5 days. 08/21/21 09:52 Blood Culture (Wb) - Left Forearm Blood Culture - Final No growth in 5 days. 08/21/21 10:20 Urine, Clean Catch Urine Culture - Final Culture exhibits no growth. 08/21/21 10:10 Mucosa - Nasopharyngeal Influenza Types A,B Direct FA (SB) - Final 08/21/21 09:52 Nasal Secretion SARS-CoV-2 Antigen (Rapid) - Final SARS-CoV-2 (COVID 19) Physical Exam Narrative No significant improvement as reported by patient. General: Alert, Oriented x3, Cooperative HEENT: Atraumatic, PERRLA, EOMI, Normocephalic Oral: No Gingival or Mucosal Lesions/ Ulcerations Neck: Supple, No JVD, Negative Carotid Bruits Lungs: Air entry bilaterally severely diminished. Mild bilateral inspiratory rales. Severe hypoxia. Cardiovascular: Sinus rhythm, Normal S1, Normal S2, No murmurs Abdomen Bowel Sounds Present, Soft, Non Tender, Non-Distended : No renal angle tenderness. No suprapubic tenderness. Extremities: No edema, Capillary Refill Less than 3 Seconds Skin: No rashes, No breakdown Musculoskeletal: No Tenderness to Palpation of Joints or Extremities Neurological: Cranial nerves II-XII grossly intact, DTR 2+/4 Psych/Mental Status: Flat affect. Assessment & Plan Assessment/Plan (1) COVID-19: PLAN: 1. COVID-19 pneumonia-continue dexamethasone. Patient symptoms started 1 week before 08/14 and was admitted on 08/21. He is out of window of remdesivir. ID consult for baricitinib approval. 08/26: Respiratory status remains similar. Hypophosphatemia, phosphorus getting placed 08/27: Transaminases normal. K3.5. Potassium replaced. 08/28: Patient reports slight improvement in shortness of breath but oxygen requirement is still high. Chest x-ray on 08/27 shows progressive bilateral pulmonary infiltrate as compared to prior study. [employer] on board. Not a candidate for baricitinib because of ongoing MAC/ANN infection 08/29: Prone positioning. Aggressive incentive spirometry and Pep. Labs ordered. Remain on 15 L of oxygen I-Flow. 08/30: Patient on 84% FiO2, air Vo, respiratory rate 6/min. #2 MAC infection of the lungs- continue azithromycin ethambutol and rifampin. #3 Acute on chronic hypoxic respiratory failure- patient is on 15 L of oxygen. #4 chronic kidney disease stage IIIa: Mild improvement in creatinine. 08/30 creatinine slightly went up and blood pressure is in 130s. Patient on low- dose losartan 25 mg daily therefore discontinued #5 restrictive lung disease/MAC #6 paroxysmal A. fib-patient is currently on full anticoagulation at this time. On Xarelto #7 type 2 diabetes mellitus pain #8 hyperlipidemia #9 essential hypertension #10 generalized debility-it may be necessary for the patient to go to a short- term group home facility if the patient does not have any help at home. DVT prophylaxis on Xarelto Charges/Coding Visit Charges Inpatient E&M: 98556 Subs Hosp L2
[2021-08-30 13:21] LABS: Bedside Glucose 76 mg/dL (70-110)
[2021-08-30] MEDS: Ferrous Sulfate 325 MG Tablet PO (13:40)
[2021-08-30] MEDS: Rivaroxaban 15 MG Tablet PO (17:01)
[2021-08-30 17:40] LABS: Bedside Glucose 278 mg/dL (70-110)
[2021-08-30] MEDS: Atorvastatin Calcium 40 MG Tablet PO (21:32)
[2021-08-30] MEDS: Acetaminophen 325 MG Tablet 650 MG PO (21:33)
[2021-08-30 21:50] LABS: Bedside Glucose 316 mg/dL (70-110)
[2021-08-31] VITALS (12 sets, daily range): BP systolic 114–160; BP diastolic 59–75; PULSE 62–84; RESP 16–32; TEMP 36.8–38.2; O2SAT 92–96
[2021-08-31] MEDS: Propranolol 40 MG Tablet 80 MG PO ×3 (06:46→21:08)
[2021-08-31 06:53] LABS: Absolute Lymphocyte Count 0.59 X10^3/uL (0.83-4.51); Absolute Neutrophil Count 3.4 X10^3/uL (2.0-7.7); Basophil# 0.02 X10^3/uL; Basophil% 0.4 % (0-1); Eosinophil# 0.16 X10^3/uL; Eosinophils% 3.5 % (0-5); Hematocrit 36.4 % (40-54); Hemoglobin 12.1 g/dL (13.0-16.5); Lymphocyte # 0.59 X10^3/ul (0.83-4.51); Mean Corp Hgb Conc 33.2 g/dL (32-36); Mean Corpuscular Hgb 29.1 pg (27.0-32.0); Mean Corpuscular Volume 87.5 fL (80-94); Mean Platelet Vol. 9.5 fl (6.2-12.0); Monocyte# 0.39 X10^3/uL; Monocyte% 8.6 % (0-10); NRBC Flagged by Analyzer 0 % (0-5); Neutrophil # 3.35 X10^3/uL (2.7-7.7); Neutrophil % 74.1 % (47-70); POSITIVE DIFFERENTIAL YES; Platelet Count 257 K/mm3 (150-450); RBC Distribution Width CV 14.3 % (11.6-14.6); RBC Distribution Width SD 44.2 fl (35.1-43.9); Red Blood Count 4.16 M/mm3 (4.6-6.2); White Blood Count 4.5 K/mm3 (4.4-11.0)
[2021-08-31 06:56] LABS: Bedside Glucose 124 mg/dL (70-110)
[2021-08-31 07:00] LABS: Differential Indicated SCAN CRITERIA MET
[2021-08-31 07:27] LABS: ALB/GLOB Ratio 0.3 RATIO (0.9-2.4); AST(SGOT) 29 U/L (15-37); Alanine Aminotransfer ALT/SGPT 16 U/L (16-61); Albumin, Serum 1.5 g/dL (3.2-5.0); Alkaline Phosphatase 116 U/L (45-117); Anion Gap 7 (5-15); BUN 20 mg/dL (7-18); BUN/Creat Ratio 14.5 RATIO (10-20); Calcium,Total 8.9 mg/dL (8.5-10.1); Chloride 101 mmol/L (98-107); Creatinine, Serum 1.38 mg/dL (0.70-1.30); EST Glomerular Filtration Rate 53 mL/min (>60); Est Glom Filt Rate - Afr Amer 64 mL/min (>60); Estimated Creatinine Clearance 42.56 ml/min; Globulin 4.9 g/dL (2.2-4.2); Glucose 117 mg/dL (74-106); Potassium 4.4 mmol/L (3.5-5.1); Protein, Total 6.4 g/dL (6.4-8.2); Sodium Level 133 mmol/L (136-145)
[2021-08-31] MEDS: dexAMETHasone 4 MG Tablet 6 MG PO (09:11)
[2021-08-31] MEDS: Pantoprazole Sodium 40 MG Tablet PO (09:12)
[2021-08-31] MEDS: amLODIPine 2.5 MG Tablet PO (09:12)
[2021-08-31] MEDS: Potassium Chloride Oral Tablet 20 MEQ 40 MEQ PO (09:12)
[2021-08-31] MEDS: Menthol/Lanolin/Calamine/Znox 113 GM Tube 1 APPLIC TOPICAL ×2 (09:12→21:07)
[2021-08-31] MEDS: TICAGRELOR 90 MG TABLET PO ×2 (09:12→21:08)
[2021-08-31] MEDS: guaiFENesin/D-Methorphan TAB.SR.12H 1 TABLET PO ×2 (09:12→21:08)
--- NOTE | 2021-08-31 09:55 | PN.CC_ITS ---
Assessment & Plan Assessment/Plan (1) Interstitial lung disease: (2) Mycobacterium avium complex: (3) Pneumonia due to 2019-nCoV: (4) Chronic respiratory failure with hypoxia: (5) CKD (chronic kidney disease) stage 3, GFR 30-59 ml/min: (6) RENEE (obstructive sleep apnea): (7) Paroxysmal atrial fibrillation: PLAN: RECOMMENDATIONS: 1. 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 2. Continue to wean oxygen for saturations greater than 90%. 3. Continue Decadron to complete 10 days of therapy. 4. Continue Xarelto per home regimen. 5. Diuretics as needed to maintain euvolemic state. IMPRESSIONS: 1. Acute COVID-19 infection in the setting of restrictive lung disease secondary to MAC The patient's oxygenation status has been worsening over the course of his hospitalization. He remains on appropriate antimicrobial therapy to address his underlying MAC infection. In addition, the patient remains on Decadron and his home Xarelto regimen. He was not a candidate for baricitinib. Continue current supportive measures including oxygen to maintain saturations at or above 90%. Continue intermittent use of diuretics to maintain euvolemic state. 2. Paroxysmal A. fib/PAD/renal artery stenosis/CKD/advanced age/diabetes mellitus Complicates care, management, recovery and prognosis. Continue home medications as indicated. This note was generated with [employer] dictation software. It may contain incorrect words, spelling, and punctuation that were not noted in checking the note before signing. Subjective Subjective The patient was seen and examined at the bedside this morning. Events from the last 24 hours have been reviewed. The patient is currently afebrile, hemodynamically stable and maintaining appropriate oxygen saturations on heated high flow with an FiO2 requirement of 60% and flow rate of 50 L/min. The patient is currently documented to be overall net +1.5 L for the hospital admission. The patient remains on Decadron and his baseline Xarelto regimen. Objective Data Objective Data The patient's most recent lab work, culture data and imaging studies have all been personally reviewed. Rapid coronavirus antigen testing was positive on August 21. Vital Signs: Vital Signs Temp Pulse Resp BP Pulse Ox 98.6 F 74 18 134/67 H 96 08/31/21 09:10 08/31/21 09:10 08/31/21 09:10 08/31/21 09:10 08/31/21 09:10 Oxygen Flow Rate (L/min) 50 Oxygen Delivery Method Airvo Weight: 68.2 kg Body Mass Index (BMI) 22.7 Intake & Output: Intake and Output for Last 24 Hours 08/29/21 08/30/21 08/31/21 23:59 23:59 23:59 Intake Total 500 / 500 200 / 200 200 / 200 Output Total 300 / 300 450 / 450 Balance 500 / 500 -100 / -100 -250 / -250 Medical Nutrition Assessment Dietitian: Malnutrition Criteria Met Start: 08/27/21 16:22 Freq: Status: Active Protocol: Document 08/27/21 16:22 FRAN (Rec: 08/27/21 16:22 [facility] [id number]) Nutrition Malnutrition Evidence of Malnutrition Exists Yes Malnutrition (severe): Acute Illness/Injury Evidenced By Suboptimal Energy Intake ( Severe),Weight Loss (Severe) Intake Problem Inadequate Oral Intake Status Inactive Problem Clinical Problem Acute Disease or Injury Related Malnutrition Etiology related to COVID and inability to consume adequate nutrition to meet est nutritional needs Signs/Symptoms as evidenced by 5.6% wt loss and <50% po intake at meals x >5 days Status Active Problem Recommendation Dietitian Recommendations/Changes Will liberalize diet to Regular No Added Salt w/ 4 oz ensure compact w/ meals, for increased nutrition if consumed, d/t signs/symptoms of malnutrition Lab / Micro Data Attestation: I reviewed the patient's lab results. Result Diagrams: 08/31/21 06:21 08/31/21 06:21 Labs: Laboratory Results - last 24 hr 08/30/21 11:05: POC Glucose 76 08/30/21 16:59: POC Glucose 278 H 08/30/21 21:27: POC Glucose 316 H 08/31/21 06:21: WBC 4.5, RBC 4.16 L, Hgb 12.1 L, Hct 36.4 L, MCV 87.5, MCH 29.1, MCHC 33.2, RDW Std Deviation 44.2 H, RDW Coeff of Rosa 14.3, Plt Count 257, MPV 9.5, Immature Gran % (Auto) 0.400, Neut % (Auto) 74.1 H, Lymph % (Auto) 13.0 L, [facility] % (Auto) 8.6, Eos % (Auto) 3.5, Baso % (Auto) 0.4, Absolute Neuts (auto) 3.4, Absolute Lymphs (auto) 0.59 L, Nucleated RBC % 0 08/31/21 06:21: Sodium 133 L, Potassium 4.4, Chloride 101, Carbon Dioxide 25.0, Anion Gap 7, BUN 20 H, Creatinine 1.38 H, Estim Creat Clear Calc 42.56, Est GFR (MDRD) Af Amer 64, Est GFR (MDRD) Non-Af 53 L, BUN/Creatinine Ratio 14.5, Glucose 117 H, Calcium 8.9, Total Bilirubin 0.60, AST 29, ALT 16, Alkaline Phosphatase 116, Total Protein 6.4, Albumin 1.5 L, Globulin 4.9 H, Album in/Globulin Ratio 0.3 L 08/31/21 06:44: POC Glucose 124 H Micro: Microbiology 08/21/21 10:20 Blood Culture (Wb) - Left Wrist Blood Culture - Final No growth in 5 days. 08/21/21 09:52 Blood Culture (Wb) - Left Forearm Blood Culture - Final No growth in 5 days. 08/21/21 10:20 Urine, Clean Catch Urine Culture - Final Culture exhibits no growth. 08/21/21 10:10 Mucosa - Nasopharyngeal Influenza Types A,B Direct FA (SB) - Final 08/21/21 09:52 Nasal Secretion SARS-CoV-2 Antigen (Rapid) - Final SARS-CoV-2 (COVID 19) Physical Exam Const alert General Appearance: cooperative and ill appearing HEENT normocephalic and head/scalp atraumatic Eyes PERRL, EOMs intact bilaterally and conjunctivae normal Neck supple General: trachea midline Chest inspection of chest normal Resp Auscultation: rales and diminished lung sounds Cardio regular rate and regular rhythm GI normal to inspection, nondistended, normoactive bowel sounds Extremity no clubbing, cyanosis or edema Skin no rashes or lesions noted Neuro CN's II-XII intact bilaterally, moves all extremities and no focal motor deficits Psych Mood & Affect: flat affect Charges/Coding Visit Charges Inpatient E&M: 50504 Subs Hosp L2
[2021-08-31] MEDS: Insulin Lispro 100 UNIT/ML INSULN.PEN SC ×2 (11:32→17:06)
[2021-08-31] MEDS: 0.9% Saline Lock 10 ML Syringe IV (11:32)
[2021-08-31] MEDS: Furosemide 40 MG/4 ML Vial IV (11:32)
[2021-08-31 11:41] LABS: Bedside Glucose 298 mg/dL (70-110)
--- NOTE | 2021-08-31 12:17 | PN.HOSP_ITS ---
Objective Data Objective Data Vital Signs: Vital Signs Temp Pulse Resp BP Pulse Ox 98.6 F 74 18 134/67 H 96 08/31/21 09:10 08/31/21 09:10 08/31/21 09:10 08/31/21 09:10 08/31/21 09:10 Oxygen Flow Rate (L/min) 50 Oxygen Delivery Method Airvo Weight: 150 lb 5.684 oz Body Mass Index (BMI) 22.7 Intake & Output: Intake and Output for Last 24 Hours 08/29/21 08/30/21 08/31/21 23:59 23:59 23:59 Intake Total 500 / 500 200 / 200 200 / 200 Output Total 300 / 300 450 / 450 Balance 500 / 500 -100 / -100 -250 / -250 Medical Nutrition Assessment Dietitian: Malnutrition Criteria Met Start: 08/27/21 16:22 Freq: Status: Active Protocol: Document 08/27/21 16:22 FRAN (Rec: 08/27/21 16:22 [facility] [id number]) Nutrition Malnutrition Evidence of Malnutrition Exists Yes Malnutrition (severe): Acute Illness/Injury Evidenced By Suboptimal Energy Intake ( Severe),Weight Loss (Severe) Intake Problem Inadequate Oral Intake Status Inactive Problem Clinical Problem Acute Disease or Injury Related Malnutrition Etiology related to COVID and inability to consume adequate nutrition to meet est nutritional needs Signs/Symptoms as evidenced by 5.6% wt loss and <50% po intake at meals x >5 days Status Active Problem Recommendation Dietitian Recommendations/Changes Will liberalize diet to Regular No Added Salt w/ 4 oz ensure compact w/ meals, for increased nutrition if consumed, d/t signs/symptoms of malnutrition Lab / Micro Data Result Diagrams: 08/31/21 06:21 08/31/21 06:21 Labs: Laboratory Results - last 24 hr 08/30/21 11:05: POC Glucose 76 08/30/21 16:59: POC Glucose 278 H 08/30/21 21:27: POC Glucose 316 H 08/31/21 06:21: WBC 4.5, RBC 4.16 L, Hgb 12.1 L, Hct 36.4 L, MCV 87.5, MCH 29.1, MCHC 33.2, RDW Std Deviation 44.2 H, RDW Coeff of Rosa 14.3, Plt Count 257, MPV 9.5, Immature Gran % (Auto) 0.400, Neut % (Auto) 74.1 H, Lymph % (Auto) 13.0 L, [place] % (Auto) 8.6, Eos % (Auto) 3.5, Baso % (Auto) 0.4, Absolute Neuts (auto) 3.4, Absolute Lymphs (auto) 0.59 L, Nucleated RBC % 0 08/31/21 06:21: Sodium 133 L, Potassium 4.4, Chloride 101, Carbon Dioxide 25.0, Anion Gap 7, BUN 20 H, Creatinine 1.38 H, Estim Creat Clear Calc 42.56, Est GFR (MDRD) Af Amer 64, Est GFR (MDRD) Non-Af 53 L, BUN/Creatinine Ratio 14.5, Glucose 117 H, Calcium 8.9, Total Bilirubin 0.60, AST 29, ALT 16, Alkaline Phosphatase 116, Total Protein 6.4, Albumin 1.5 L, Globulin 4.9 H, Albumin/Globulin Ratio 0.3 L 08/31/21 06:44: POC Glucose 124 H 08/31/21 11:30: POC Glucose 298 H Micro: Microbiology 08/21/21 10:20 Blood Culture (Wb) - Left Wrist Blood Culture - Final No growth in 5 days. 08/21/21 09:52 Blood Culture (Wb) - Left Forearm Blood Culture - Final No growth in 5 days. 08/21/21 10:20 Urine, Clean Catch Urine Culture - Final Culture exhibits no growth. 08/21/21 10:10 Mucosa - Nasopharyngeal Influenza Types A,B Direct FA (SB) - Final 08/21/21 09:52 Nasal Secretion SARS-CoV-2 Antigen (Rapid) - Final SARS-CoV-2 (COVID 19) Physical Exam Narrative No significant improvement in shortness of breath as reported by patient. Tired and weak. T-max 99.6 Fahrenheit. General: Alert, Oriented x3, Cooperative HEENT: Atraumatic, PERRLA, EOMI, Normocephalic Oral: No Gingival or Mucosal Lesions/ Ulcerations Neck: Supple, No JVD, Negative Carotid Bruits Lungs: Air entry bilaterally severely diminished. Mild bilateral inspiratory rales. Severe hypoxia. Labored breathing. Cardiovascular: Sinus rhythm, Normal S1, Normal S2, No murmurs Abdomen Bowel Sounds Present, Soft, Non Tender, Non-Distended : No renal angle tenderness. No suprapubic tenderness. Extremities: No edema, Capillary Refill Less than 3 Seconds Skin: No rashes, No breakdown Musculoskeletal: No Tenderness to Palpation of Joints or Extremities Neurological: Cranial nerves II-XII grossly intact, DTR 2+/4 Psych/Mental Status: Flat affect. Assessment & Plan Assessment/Plan (1) COVID-19: PLAN: 1. COVID-19 pneumonia-continue dexamethasone. Patient symptoms started 1 week before 08/14 and was admitted on 08/21. He is out of window of remdesivir. ID consult for baricitinib approval. 08/26: Respiratory status remains similar. Hypophosphatemia, phosphorus getting placed 08/27: Transaminases normal. K3.5. Potassium replaced. 08/28: Patient reports slight improvement in shortness of breath but oxygen requirement is still high. Chest x-ray on 08/27 shows progressive bilateral pulmonary infiltrate as compared to prior study. [employer] on board. Not a candidate for baricitinib because of ongoing MAC/ANN infection 08/29: Prone positioning. Aggressive incentive spirometry and Pep. Labs ordered. Remain on 15 L of oxygen I-Flow. 08/30: Patient on 84% FiO2, air Vo, respiratory rate 2026/min. 08/31: Patient on Airvo, 60% FiO2 respiratory rate variable 18 to 32/min. Intermittent tachypnea #2 MAC infection of the lungs- continue azithromycin ethambutol and rifampin. #3 Acute on chronic hypoxic respiratory failure- As mentioned above #4 chronic kidney disease stage IIIa: Mild improvement in creatinine. 08/30 creatinine slightly went up and blood pressure is in 130s. Patient on low- dose losartan 25 mg daily therefore discontinued 08/31: Creatinine improving 1.38. #5 restrictive lung disease/MAC #6 paroxysmal A. fib-patient is currently on full anticoagulation at this time. On Xarelto #7 type 2 diabetes mellitus pain #8 hyperlipidemia #9 essential hypertension #10 generalized debility-it may be necessary for the patient to go to a short- term detention facility if the patient does not have any help at home. DVT prophylaxis on Xarelto Charges/Coding Visit Charges Inpatient E&M: 93969 Subs Hosp L2
[2021-08-31] MEDS: Rivaroxaban 15 MG Tablet PO (17:06)
[2021-08-31 17:36] LABS: Bedside Glucose 397 mg/dL (70-110)
--- NOTE | 2021-08-31 19:39 | CPS ---
Pt on 12 L HFNC SpO2 94%
[2021-08-31] MEDS: Acetaminophen 325 MG Tablet 650 MG PO (21:08)
[2021-08-31] MEDS: Atorvastatin Calcium 40 MG Tablet PO (21:08)
[2021-08-31 21:21] LABS: Bedside Glucose 290 mg/dL (70-110)
[2021-09-01] VITALS (8 sets, daily range): BP systolic 109–122; BP diastolic 49–65; PULSE 72–101; RESP 18–20; TEMP 36.1–37.9; O2SAT 92–94
[2021-09-01] MEDS: Propranolol 40 MG Tablet 80 MG PO ×3 (06:34→20:54)
[2021-09-01] MEDS: Insulin Lispro 100 UNIT/ML INSULN.PEN SC ×3 (06:34→21:52)
[2021-09-01 06:46] LABS: Bedside Glucose 212 mg/dL (70-110)
[2021-09-01 07:08] LABS: Absolute Lymphocyte Count 0.74 X10^3/uL (0.83-4.51); Absolute Neutrophil Count 4.3 X10^3/uL (2.0-7.7); Basophil# 0.03 X10^3/uL; Basophil% 0.5 % (0-1); Eosinophil# 0.16 X10^3/uL; Eosinophils% 2.8 % (0-5); Hematocrit 39.1 % (40-54); Hemoglobin 12.9 g/dL (13.0-16.5); Lymphocyte # 0.74 X10^3/ul (0.83-4.51); Mean Corpuscular Hgb 28.7 pg (27.0-32.0); Mean Corpuscular Volume 87.1 fL (80-94); Mean Platelet Vol. 8.8 fl (6.2-12.0); Monocyte# 0.47 X10^3/uL; Monocyte% 8.3 % (0-10); NRBC Flagged by Analyzer 0 % (0-5); Neutrophil # 4.26 X10^3/uL (2.7-7.7); Neutrophil % 74.9 % (47-70); Platelet Count 291 K/mm3 (150-450); RBC Distribution Width CV 13.7 % (11.6-14.6); RBC Distribution Width SD 42.2 fl (35.1-43.9); Red Blood Count 4.49 M/mm3 (4.6-6.2); White Blood Count 5.7 K/mm3 (4.4-11.0)
[2021-09-01 07:33] LABS: ALB/GLOB Ratio 0.3 RATIO (0.9-2.4); AST(SGOT) 36 U/L (15-37); Alanine Aminotransfer ALT/SGPT 21 U/L (16-61); Albumin, Serum 1.7 g/dL (3.2-5.0); Alkaline Phosphatase 138 U/L (45-117); Anion Gap 9 (5-15); BUN 23 mg/dL (7-18); BUN/Creat Ratio 15.4 RATIO (10-20); Calcium,Total 9.3 mg/dL (8.5-10.1); Chloride 98 mmol/L (98-107); Creatinine, Serum 1.49 mg/dL (0.70-1.30); EST Glomerular Filtration Rate 48 mL/min (>60); Est Glom Filt Rate - Afr Amer 59 mL/min (>60); Globulin 5.4 g/dL (2.2-4.2); Glucose 226 mg/dL (74-106); Potassium 4.8 mmol/L (3.5-5.1); Protein, Total 7.1 g/dL (6.4-8.2); Sodium Level 131 mmol/L (136-145)
[2021-09-01] MEDS: dexAMETHasone 4 MG Tablet 6 MG PO (11:03)
[2021-09-01] MEDS: Pantoprazole Sodium 40 MG Tablet PO (11:04)
[2021-09-01] MEDS: amLODIPine 2.5 MG Tablet PO (11:04)
[2021-09-01] MEDS: Azithromycin 250 MG Tablet 500 MG PO (11:05)
[2021-09-01] MEDS: guaiFENesin/D-Methorphan TAB.SR.12H 1 TABLET PO ×2 (11:05→20:54)
[2021-09-01] MEDS: rifAMPin 300 MG Capsule 600 MG PO (11:06)
[2021-09-01] MEDS: TICAGRELOR 90 MG TABLET PO ×2 (11:07→20:54)
[2021-09-01] MEDS: Menthol/Lanolin/Calamine/Znox 113 GM Tube 1 APPLIC TOPICAL ×2 (11:08→20:54)
[2021-09-01 11:45] LABS: Bedside Glucose 455 mg/dL (70-110)
[2021-09-01] MEDS: Insulin Lispro 100 UNIT/ML INSULN.PEN 10 UNIT SC (12:06)
[2021-09-01] MEDS: Ferrous Sulfate 325 MG Tablet PO (12:06)
--- NOTE | 2021-09-01 14:31 | PCM.PN.INT ---
Assessment & Plan Assessment/Plan (1) Interstitial lung disease: (2) Mycobacterium avium complex: (3) Pneumonia due to 2019-nCoV: (4) Chronic respiratory failure with hypoxia: (5) CKD (chronic kidney disease) stage 3, GFR 30-59 ml/min: (6) RENEE (obstructive sleep apnea): (7) Paroxysmal atrial fibrillation: PLAN: RECOMMENDATIONS: 1. 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 2. Continue to wean oxygen for saturations greater than 90%. 3. Completed Decadron 4. Continue Xarelto per home regimen. 5. Diuretics as needed to maintain euvolemic state. IMPRESSIONS: 1. Acute COVID-19 infection in the setting of restrictive lung disease secondary to MAC The patient's oxygenation status has been worsening over the course of his hospitalization. He remains on appropriate antimicrobial therapy to address his underlying MAC infection. In addition, the patient completed Decadron and continues his home Xarelto regimen. He was not a candidate for baricitinib. Continue current supportive measures including oxygen to maintain saturations at or above 90%. Continue intermittent use of diuretics to maintain euvolemic state. Patient with improvement in oxygenation through the day. We will hold on diuresis today, but may challenge tomorrow. Potential is able to be weaned to 6 L or less with exertion. 2. Paroxysmal A. fib/PAD/renal artery stenosis/CKD/advanced age/diabetes mellitus Complicates care, management, recovery and prognosis. Continue home medications as indicated. This note was generated with [employer] dictation software. It may contain incorrect words, spelling, and punctuation that were not noted in checking the note before signing. Subjective Subjective Patient did okay overnight from a hemodynamic standpoint. Patient is also had improvement in oxygenation. However, patient reports overall he feels subjectively worse compared to yesterday. Patient reports dyspnea with minimal exertion. No chest pain is been reported. Objective Data Objective Data Vital Signs: Vital Signs Temp Pulse Resp BP Pulse Ox 36.8 C 77 20 H 114/60 94 09/01/21 08:47 09/01/21 08:47 09/01/21 09:00 09/01/21 08:47 09/01/21 09:00 Oxygen Flow Rate (L/min) 10 Oxygen Delivery Method High Flow Weight: 66.1 kg Body Mass Index (BMI) 22.7 Intake & Output: Intake and Output for Last 24 Hours 08/30/21 08/31/21 09/01/21 23:59 23:59 23:59 Intake Total 200 / 200 550 / 550 Output Total 300 / 300 1750 / 1750 425 / 425 Balance -100 / -100 -1200 / -1200 -425 / -425 Medical Nutrition Assessment Dietitian: Malnutrition Criteria Met Start: 08/27/21 16:22 Freq: Status: Active Protocol: Document 08/27/21 16:22 FRAN (Rec: 08/27/21 16:22 [facility] [id number]) Nutrition Malnutrition Evidence of Malnutrition Exists Yes Malnutrition (severe): Acute Illness/Injury Evidenced By Suboptimal Energy Intake ( Severe),Weight Loss (Severe) Intake Problem Inadequate Oral Intake Status Inactive Problem Clinical Problem Acute Disease or Injury Related Malnutrition Etiology related to COVID and inability to consume adequate nutrition to meet est nutritional needs Signs/Symptoms as evidenced by 5.6% wt loss and <50% po intake at meals x >5 days Status Active Problem Recommendation Dietitian Recommendations/Changes Will liberalize diet to Regular No Added Salt w/ 4 oz ensure compact w/ meals, for increased nutrition if consumed, d/t signs/symptoms of malnutrition Lab / Micro Data Result Diagrams: 09/01/21 06:50 09/01/21 06:50 Labs: Laboratory Results - last 24 hr 08/31/21 17:01: POC Glucose 397 H 08/31/21 21:02: POC Glucose 290 H 09/01/21 06:31: POC Glucose 212 H 09/01/21 06:50: WBC 5.7, RBC 4.49 L, Hgb 12.9 L, Hct 39.1 L, MCV 87.1, MCH 28.7, MCHC 33.0, RDW Std Deviation 42.2, RDW Coeff of Rosa 13.7, Plt Count 291, MPV 8.8, Immature Gran % (Auto) 0.500, Neut % (Auto) 74.9 H, Lymph % (Auto) 13.0 L, [place] % (Auto) 8.3, Eos % (Auto) 2.8, Baso % (Auto) 0.5, Absolute Neuts (auto) 4.3, Absolute Lymphs (auto) 0.74 L, Nucleated RBC % 0 09/01/21 06:50: Sodium 131 L, Potassium 4.8, Chloride 98, Carbon Dioxide 24.0, Anion Gap 9, BUN 23 H, Creatinine 1.49 H, Estim Creat Clear Calc 38.20, Est GFR (MDRD) Af Amer 59 L, Est GFR (MDRD) Non-Af 48 L, BUN/Creatinine Ratio 15.4, Glucose 226 H, Calcium 9.3, Total Bilirubin 0.70, AST 36, ALT 21, Alkaline Phosphatase 138 H, Total Protein 7.1, Albumin 1.7 L, Globulin 5.4 H, Albumin/Globulin Ratio 0.3 L 09/01/21 11:01: POC Glucose 455 H* Micro: Microbiology 08/21/21 10:20 Blood Culture (Wb) - Left Wrist Blood Culture - Final No growth in 5 days. 08/21/21 09:52 Blood Culture (Wb) - Left Forearm Blood Culture - Final No growth in 5 days. 08/21/21 10:20 Urine, Clean Catch Urine Culture - Final Culture exhibits no growth. 08/21/21 10:10 Mucosa - Nasopharyngeal Influenza Types A,B Direct FA (SB) - Final 08/21/21 09:52 Nasal Secretion SARS-CoV-2 Antigen (Rapid) - Final SARS-CoV-2 (COVID 19) Physical Exam Const alert Constitutional Narrative: Sitting in the chair without glasses in place General Appearance: cooperative and ill appearing HEENT normocephalic and head/scalp atraumatic Eyes PERRL, EOMs intact bilaterally and conjunctivae normal Neck supple General: trachea midline Chest inspection of chest normal Resp Auscultation: rales and diminished lung sounds Cardio regular rate and regular rhythm GI normal to inspection, nondistended, normoactive bowel sounds Extremity no clubbing, cyanosis or edema Skin no rashes or lesions noted Neuro CN's II-XII intact bilaterally, moves all extremities and no focal motor deficits Psych Mood & Affect: flat affect Charges/Coding Visit Charges Inpatient E&M: 91164 Subs Hosp L2
[2021-09-01] MEDS: Acetaminophen 325 MG Tablet 650 MG PO (14:59)
--- NOTE | 2021-09-01 16:04 | PN.HOSP_ITS ---
Subjective Subjective Reluctant to work with therapy. Still on high-flow oxygen. Objective Data Objective Data Vital Signs: Vital Signs Temp Pulse Resp BP Pulse Ox 37.9 C H 101 H 20 H 122/49 H 92 09/01/21 14:52 09/01/21 14:52 09/01/21 14:52 09/01/21 14:52 09/01/21 14:52 Oxygen Flow Rate (L/min) 10 Oxygen Delivery Method High Flow Weight: 66.1 kg Body Mass Index (BMI) 22.7 Intake & Output: Intake and Output for Last 24 Hours 08/30/21 08/31/21 09/01/21 23:59 23:59 23:59 Intake Total 200 / 200 550 / 550 Output Total 300 / 300 1750 / 1750 425 / 425 Balance -100 / -100 -1200 / -1200 -425 / -425 Medical Nutrition Assessment Dietitian: Malnutrition Criteria Met Start: 08/27/21 16:22 Freq: Status: Active Protocol: Document 08/27/21 16:22 FRAN (Rec: 08/27/21 16:22 [facility] [id number]) Nutrition Malnutrition Evidence of Malnutrition Exists Yes Malnutrition (severe): Acute Illness/Injury Evidenced By Suboptimal Energy Intake ( Severe),Weight Loss (Severe) Intake Problem Inadequate Oral Intake Status Inactive Problem Clinical Problem Acute Disease or Injury Related Malnutrition Etiology related to COVID and inability to consume adequate nutrition to meet est nutritional needs Signs/Symptoms as evidenced by 5.6% wt loss and <50% po intake at meals x >5 days Status Active Problem Recommendation Dietitian Recommendations/Changes Will liberalize diet to Regular No Added Salt w/ 4 oz ensure compact w/ meals, for increased nutrition if consumed, d/t signs/symptoms of malnutrition Lab / Micro Data Result Diagrams: 09/01/21 06:50 09/01/21 06:50 Labs: Laboratory Results - last 24 hr 08/31/21 17:01: POC Glucose 397 H 08/31/21 21:02: POC Glucose 290 H 09/01/21 06:31: POC Glucose 212 H 09/01/21 06:50: WBC 5.7, RBC 4.49 L, Hgb 12.9 L, Hct 39.1 L, MCV 87.1, MCH 28.7, MCHC 33.0, RDW Std Deviation 42.2, RDW Coeff of Rosa 13.7, Plt Count 291, MPV 8.8, Immature Gran % (Auto) 0.500, Neut % (Auto) 74.9 H, Lymph % (Auto) 13.0 L, [place] % (Auto) 8.3, Eos % (Auto) 2.8, Baso % (Auto) 0.5, Absolute Neuts (auto) 4.3, Absolute Lymphs (auto) 0.74 L, Nucleated RBC % 0 09/01/21 06:50: Sodium 131 L, Potassium 4.8, Chloride 98, Carbon Dioxide 24.0, Anion Gap 9, BUN 23 H, Creatinine 1.49 H, Estim Creat Clear Calc 38.20, Est GFR (MDRD) Af Amer 59 L, Est GFR (MDRD) Non-Af 48 L, BUN/Creatinine Ratio 15.4, Glucose 226 H, Calcium 9.3, Total Bilirubin 0.70, AST 36, ALT 21, Alkaline Phosphatase 138 H, Total Protein 7.1, Albumin 1.7 L, Globulin 5.4 H, Albumin/Globulin Ratio 0.3 L 09/01/21 11:01: POC Glucose 455 H* Micro: Microbiology 08/21/21 10:20 Blood Culture (Wb) - Left Wrist Blood Culture - Final No growth in 5 days. 08/21/21 09:52 Blood Culture (Wb) - Left Forearm Blood Culture - Final No growth in 5 days. 08/21/21 10:20 Urine, Clean Catch Urine Culture - Final Culture exhibits no growth. 08/21/21 10:10 Mucosa - Nasopharyngeal Influenza Types A,B Direct FA (SB) - Final 08/21/21 09:52 Nasal Secretion SARS-CoV-2 Antigen (Rapid) - Final SARS-CoV-2 (COVID 19) Physical Exam Const alert and no apparent distress Resp normal respiratory effort and no retractions Resp Narrative: coarse breath sounds. Cardio regular rate, regular rhythm, S1 normal heart sound and S2 normal heart sound GI normal to inspection, nondistended, normoactive bowel sounds, soft to palpation, non-tender and non-distended Extremity normal to inspection Psych Psych Narrative: flat affect. Assessment & Plan Assessment/Plan (1) Acute on chronic respiratory failure with hypoxia: (2) COVID-19: (3) Mycobacterium avium complex: PLAN: 1. acute on chronic hypoxic respiratory failure on 10 liters wean oxygen as able encouraged utilization of pulm toilet 2. Acute COVID 19 completed dexamethasone sx began 12.2, quarantine through the not candidate for baricitinib did not receive remdesivir 3. MAC on azithromycin, ethambutol and rifampin. follow up with ID 4. Depression complicates care and recovery 5. pafib on rivaroxaban 6. DM2 uncontrolled on glargine and SSI anticipate improvement now that steroids are discontinued 7. VTE prophylaxis: anticoagulated. Greater than 40 minutes of which greater than 50% of time was discussing with the patient and his about being engaged with his therapy rather than being passive. Patient was making excuses why he could not do something. I told him that the excuses that he is doing is just throwing up a wall so that he does not have to do things. Explained to him that this is important for him to be involved in his own care so that he can overall get better. I did ask him directly if he is ready to give up. He did not address that directly but indicated more or less that he wants to get better. Strongly encouraged him to be engaged and to listen to the nursing staff as we are overall trying to help him but we need his active involvement for him to overall get better. His , who is at bedside, did become tearful during my discussion with the patient. Charges/Coding Visit Charges Inpatient E&M: 47387 Subs Hosp L3
[2021-09-01] MEDS: Furosemide 40 MG/4 ML Vial IV (17:03)
[2021-09-01 17:16] LABS: Bedside Glucose 249 mg/dL (70-110)
[2021-09-01] MEDS: Rivaroxaban 15 MG Tablet PO (18:07)
[2021-09-01] MEDS: Atorvastatin Calcium 40 MG Tablet PO (20:54)
[2021-09-01 21:05] LABS: Bedside Glucose > 500 mg/dL (70-110)
[2021-09-01 21:46] LABS: Glucose 584 mg/dL (74-106)
[2021-09-02] VITALS (17 sets, daily range): BP systolic 90–134; BP diastolic 50–74; PULSE 73–96; RESP 12–51; TEMP 36.2–37; O2SAT 74–99
[2021-09-02] MEDS: Propranolol 40 MG Tablet 80 MG PO (05:59)
[2021-09-02] MEDS: Insulin Lispro 100 UNIT/ML INSULN.PEN SC ×3 (05:59→17:01)
[2021-09-02 06:50] LABS: Bedside Glucose 316 mg/dL (70-110)
[2021-09-02 06:52] LABS: Absolute Neutrophil Count 6.2 X10^3/uL (2.0-7.7); Basophil# 0.04 X10^3/uL; Basophil% 0.5 % (0-1); Eosinophil# 0.12 X10^3/uL; Eosinophils% 1.6 % (0-5); Hematocrit 41.6 % (40-54); Hemoglobin 14.3 g/dL (13.0-16.5); Lymphocyte % 9.2 % (19-41); Mean Corp Hgb Conc 34.4 g/dL (32-36); Mean Corpuscular Hgb 29.5 pg (27.0-32.0); Mean Corpuscular Volume 85.8 fL (80-94); Monocyte# 0.53 X10^3/uL; NRBC Flagged by Analyzer 0 % (0-5); Neutrophil # 6.18 X10^3/uL (2.7-7.7); Neutrophil % 81.2 % (47-70); Platelet Count 307 K/mm3 (150-450); RBC Distribution Width CV 13.7 % (11.6-14.6); RBC Distribution Width SD 41.4 fl (35.1-43.9); Red Blood Count 4.85 M/mm3 (4.6-6.2); White Blood Count 7.6 K/mm3 (4.4-11.0)
[2021-09-02 07:22] LABS: ALB/GLOB Ratio 0.3 RATIO (0.9-2.4); AST(SGOT) 40 U/L (15-37); Alanine Aminotransfer ALT/SGPT 29 U/L (16-61); Albumin, Serum 1.8 g/dL (3.2-5.0); Alkaline Phosphatase 186 U/L (45-117); Anion Gap 8 (5-15); BUN 29 mg/dL (7-18); Calcium,Total 9.6 mg/dL (8.5-10.1); Chloride 95 mmol/L (98-107); Creatinine, Serum 1.61 mg/dL (0.70-1.30); EST Glomerular Filtration Rate 44 mL/min (>60); Est Glom Filt Rate - Afr Amer 54 mL/min (>60); Estimated Creatinine Clearance 35.46 ml/min; Globulin 5.8 g/dL (2.2-4.2); Glucose 305 mg/dL (74-106); Potassium 4.6 mmol/L (3.5-5.1); Protein, Total 7.6 g/dL (6.4-8.2); Sodium Level 129 mmol/L (136-145)
[2021-09-02] MEDS: guaiFENesin/D-Methorphan TAB.SR.12H 1 TABLET PO ×2 (08:46→22:27)
[2021-09-02] MEDS: TICAGRELOR 90 MG TABLET PO ×2 (08:46→22:27)
[2021-09-02] MEDS: amLODIPine 2.5 MG Tablet PO (08:46)
[2021-09-02] MEDS: Pantoprazole Sodium 40 MG Tablet PO (08:46)
[2021-09-02] MEDS: Menthol/Lanolin/Calamine/Znox 113 GM Tube 1 APPLIC TOPICAL ×2 (08:47→22:29)
[2021-09-02 09:24] LABS: Pathologist Review Reviewed
--- NOTE | 2021-09-02 09:54 | PCM.PN.INT ---
Assessment & Plan Assessment/Plan (1) Interstitial lung disease: (2) Mycobacterium avium complex: (3) Pneumonia due to 2019-nCoV: (4) Chronic respiratory failure with hypoxia: (5) CKD (chronic kidney disease) stage 3, GFR 30-59 ml/min: (6) RENEE (obstructive sleep apnea): (7) Paroxysmal atrial fibrillation: PLAN: RECOMMENDATIONS: 1. 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 2. Continue to wean oxygen for saturations greater than 90%. 3. Completed Decadron 4. Continue Xarelto per home regimen. 5. Diuretics as needed to maintain euvolemic state. 6. Increase Lantus given hyperglycemia IMPRESSIONS: 1. Acute COVID-19 infection in the setting of restrictive lung disease secondary to MAC The patient's oxygenation status has been worsening over the course of his hospitalization. He remains on appropriate antimicrobial therapy to address his underlying MAC infection. In addition, the patient completed Decadron and continues his home Xarelto regimen. He was not a candidate for baricitinib. Continue current supportive measures including oxygen to maintain saturations at or above 90%. Continue intermittent use of diuretics to maintain euvolemic state. Patient with improvement in oxygenation through the day. Hold on Lasix for now given elevation of creatinine. Potential is able to be weaned to 6 L or less with exertion. 2. Paroxysmal A. fib/PAD/renal artery stenosis/CKD/advanced age/diabetes mellitus Complicates care, management, recovery and prognosis. Continue home medications as indicated. Increase Lantus therapy This note was generated with [email or web address] dictation software. It may contain incorrect words, spelling, and punctuation that were not noted in checking the note before signing. Subjective Subjective Patient did okay overnight. Patient subjectively feels better today compared to yesterday. Patient did have a fever overnight, but remains on nasal cannula oxygen. Patient's blood sugars were significantly elevated. Objective Data Objective Data Vital Signs: Vital Signs Temp Pulse Resp BP Pulse Ox 37.0 C 82 18 127/67 H 12 09/02/21 08:55 09/02/21 08:55 09/02/21 08:55 09/02/21 08:55 09/02/21 08:55 Oxygen Flow Rate (L/min) 93 Oxygen Delivery Method High Flow Weight: 66.3 kg Body Mass Index (BMI) 22.7 Intake & Output: Intake and Output for Last 24 Hours 08/31/21 09/01/21 09/02/21 23:59 23:59 23:59 Intake Total 550 / 550 Output Total 1750 / 1750 625 / 625 350 / 350 Balance -1200 / -1200 -625 / -625 -350 / -350 Medical Nutrition Assessment Dietitian: Malnutrition Criteria Met Start: 08/27/21 16:22 Freq: Status: Active Protocol: Document 09/01/21 16:10 AG (Rec: 09/01/21 16:10 [id number]) Nutrition Malnutrition Evidence of Malnutrition Exists Yes Malnutrition (severe): Acute Illness/Injury Evidenced By Suboptimal Energy Intake ( Severe),Weight Loss (Severe) Intake Problem Inadequate Oral Intake Status Inactive Problem Clinical Problem Acute Disease or Injury Related Malnutrition Etiology severe, acute malnutrition r/t inadequate energy intake d/t acute illness Signs/Symptoms as evidenced by unintentional 5.8kg/8% wt loss x 11 days; estimated PO intake meeting < 50% of estimated energy needs >5 days Status Active Problem Recommendation Dietitian Recommendations/Changes continue regular diet, ensure clear TID w/ meals, and ensure pudding/yogurt w/ meals for additional calories/protein if consumed d/t acute malnutrition Lab / Micro Data Result Diagrams: 09/02/21 06:26 09/02/21 06:26 Labs: Laboratory Results - last 24 hr 08/30/21 05:37: Diff Path Review Reviewed 09/01/21 11:01: POC Glucose 455 H* 09/01/21 16:59: POC Glucose 249 H 09/01/21 20:49: POC Glucose > 500 H* 09/01/21 21:15: Glucose 584 H* 09/02/21 05:58: POC Glucose 316 H 09/02/21 06:26: WBC 7.6, RBC 4.85, Hgb 14.3, Hct 41.6, MCV 85.8, MCH 29.5, MCHC 34.4, RDW Std Deviation 41.4, RDW Coeff of Rosa 13.7, Plt Count 307, MPV 9.0, Immature Gran % (Auto) 0.500, Neut % (Auto) 81.2 H, Lymph % (Auto) 9.2 L, [place] % (Auto) 7.0, Eos % (Auto) 1.6, Baso % (Auto) 0.5, Absolute Neuts (auto) 6.2, Absolute Lymphs (auto) 0.70 L, Nucleated RBC % 0 09/02/21 06:26: Sodium 129 L, Potassium 4.6, Chloride 95 L, Carbon Dioxide 26.0, Anion Gap 8, BUN 29 H, Creatinine 1.61 H, Estim Creat Clear Calc 35.46, Est GFR (MDRD) Af Amer 54 L, Est GFR (MDRD) Non-Af 44 L, BUN/Creatinine Ratio 18.0, Glucose 305 H, Calcium 9.6, Total Bilirubin 1.40 H, AST 40 H, ALT 29, Alkaline Phosphatase 186 H, Total Protein 7.6, Albumin 1.8 L, Globulin 5.8 H, Albumin/Globulin Ratio 0.3 L Micro: Microbiology 08/21/21 10:20 Blood Culture (Wb) - Left Wrist Blood Culture - Final No growth in 5 days. 08/21/21 09:52 Blood Culture (Wb) - Left Forearm Blood Culture - Final No growth in 5 days. 08/21/21 10:20 Urine, Clean Catch Urine Culture - Final Culture exhibits no growth. 08/21/21 10:10 Mucosa - Nasopharyngeal Influenza Types A,B Direct FA (SB) - Final 08/21/21 09:52 Nasal Secretion SARS-CoV-2 Antigen (Rapid) - Final SARS-CoV-2 (COVID 19) Physical Exam Const alert Constitutional Narrative: Sitting in the bed without glasses in place General Appearance: cooperative and ill appearing HEENT normocephalic and head/scalp atraumatic Eyes PERRL, EOMs intact bilaterally and conjunctivae normal Neck supple General: trachea midline Chest inspection of chest normal Resp Auscultation: rales and diminished lung sounds Cardio regular rate and regular rhythm GI normal to inspection, nondistended, normoactive bowel sounds Extremity no clubbing, cyanosis or edema Skin no rashes or lesions noted Neuro CN's II-XII intact bilaterally, moves all extremities and no focal motor deficits Psych Mood & Affect: flat affect Charges/Coding Visit Charges Inpatient E&M: 18579 Subs Hosp L2
--- NOTE | 2021-09-02 11:13 | CASEMGMT ---
Social Work Note SW reviewed chart. Pt with depression diagnosis and has been at [facility] for 11 days. SW in to speak with pt. SW introduced self and role at [facility]. Pt is alert and orientated, sitting in chair when this worker arrived. Pt states that he is doing ok and denied any needs or concerns at this time. Pt states that he has support and people to talk to daily. Yareli Oconnell [employer]PER[employer], [employer]
[2021-09-02 11:51] LABS: Bedside Glucose 295 mg/dL (70-110)
[2021-09-02 11:55] LABS: Allen Test Positive; Base Excess 0 mmol/L (-2 to +2); Bicarbonate 25.2 mmol/L (22-26); Blood Gas Specimen Type ART; FI02 80; Mode BiLevel; O2 Delivery Device BiPAP; PEEP 6; PO2 58 mmHG (75-100); RR 12; SITE R Brach; SO2 89 % (95-99); Total Carbon Dioxide 27 mmol/L; pH 7.37 (7.35-7.45)
--- NOTE | 2021-09-02 12:28 | RAD_ITS ---
STUDY: X-RAY CHEST REASON FOR EXAM: Male, 76 years old. Shortness of breath TECHNIQUE: Single AP portable view of the chest. COMPARISON: Comparison is made with prior study dated 08/27/2021. FINDINGS: Stable elevation of the right hemidiaphragm. Mild residual reticular nodular pattern in the right lung with the infiltrate in the left lower lobe although there has been improved aeration as compared to prior study. There is no demonstrated pleural abnormality. Normal size heart. Normal mediastinum and cari. Normal visualized pulmonary arteries. There is atherosclerotic calcification of the aortic arch with tortuosity. There are diffuse degenerative changes of the visualized thoracic spine. Normal visualized ribs, clavicles, and shoulders. There is no demonstrated abnormality of the visualized soft tissue structures of the upper abdomen. RAD/Chest 1 View (Portable) IMPRESSION: There is improved aeration of both lungs. Electronically Signed: Maxi Austin MD at 13:26 EST , Service support ,
--- NOTE | 2021-09-02 13:03 | NURSING ---
attempted to call to update on patients status. message left on voicemail.
--- NOTE | 2021-09-02 14:33 | PN.HOSP_ITS ---
Subjective Subjective Worsening respiratory status today. Patient was up in the chair on high flow oxygen and stated that he could not take in a deep breath. Has been put on BiPAP and pulse ox was better but then he was taken off the BiPAP. I spoke with the patient beforehand, verified that he was a patient with Dr. Martín hawkins for infectious disease who is treating his nontuberculosis mycobacterium. Asked why he did not get the Covid vaccine and he told me that he did not know. Objective Data Objective Data Vital Signs: Vital Signs Temp Pulse Resp BP Pulse Ox 36.3 C L 85 46 H 119/70 99 09/02/21 13:50 09/02/21 13:50 09/02/21 13:50 09/02/21 13:50 09/02/21 13:50 Oxygen Flow Rate (L/min) 12 Oxygen Delivery Method Bi-pap Weight: 66.3 kg Body Mass Index (BMI) 22.7 Intake & Output: Intake and Output for Last 24 Hours 08/31/21 09/01/21 09/02/21 23:59 23:59 23:59 Intake Total 550 / 550 Output Total 1750 / 1750 625 / 625 350 / 350 Balance -1200 / -1200 -625 / -625 -350 / -350 Medical Nutrition Assessment Dietitian: Malnutrition Criteria Met Start: 08/27/21 16:22 Freq: Status: Active Protocol: Document 09/01/21 16:10 (Rec: 09/01/21 16:10 [id number]) Nutrition Malnutrition Evidence of Malnutrition Exists Yes Malnutrition (severe): Acute Illness/Injury Evidenced By Suboptimal Energy Intake ( Severe),Weight Loss (Severe) Intake Problem Inadequate Oral Intake Status Inactive Problem Clinical Problem Acute Disease or Injury Related Malnutrition Etiology severe, acute malnutrition r/t inadequate energy intake d/t acute illness Signs/Symptoms as evidenced by unintentional 5.8kg/8% wt loss x 11 days; estimated PO intake meeting < 50% of estimated energy needs >5 days Status Active Problem Recommendation Dietitian Recommendations/Changes continue regular diet, ensure clear TID w/ meals, and ensure pudding/yogurt w/ meals for additional calories/protein if consumed d/t acute malnutrition Lab / Micro Data Result Diagrams: 09/02/21 06:26 09/02/21 06:26 Labs: Laboratory Results - last 24 hr 08/30/21 05:37: Diff Path Review Reviewed 09/01/21 16:59: POC Glucose 249 H 09/01/21 20:49: POC Glucose > 500 H* 09/01/21 21:15: Glucose 584 H* 09/02/21 05:58: POC Glucose 316 H 09/02/21 06:26: WBC 7.6, RBC 4.85, Hgb 14.3, Hct 41.6, MCV 85.8, MCH 29.5, MCHC 34.4, RDW Std Deviation 41.4, RDW Coeff of Rosa 13.7, Plt Count 307, MPV 9.0, Immature Gran % (Auto) 0.500, Neut % (Auto) 81.2 H, Lymph % (Auto) 9.2 L, [place] % (Auto) 7.0, Eos % (Auto) 1.6, Baso % (Auto) 0.5, Absolute Neuts (auto) 6.2, Absolute Lymphs (auto) 0.70 L, Nucleated RBC % 0 09/02/21 06:26: Sodium 129 L, Potassium 4.6, Chloride 95 L, Carbon Dioxide 26.0, Anion Gap 8, BUN 29 H, Creatinine 1.61 H, Estim Creat Clear Calc 35.46, Est GFR (MDRD) Af Amer 54 L, Est GFR (MDRD) Non-Af 44 L, BUN/Creatinine Ratio 18.0, Glucose 305 H, Calcium 9.6, Total Bilirubin 1.40 H, AST 40 H, ALT 29, Alkaline Phosphatase 186 H, Total Protein 7.6, Albumin 1.8 L, Globulin 5.8 H, Albumin/Globulin Ratio 0.3 L 09/02/21 11:20: POC Glucose 295 H Micro: Microbiology 08/21/21 10:20 Blood Culture (Wb) - Left Wrist Blood Culture - Final No growth in 5 days. 08/21/21 09:52 Blood Culture (Wb) - Left Forearm Blood Culture - Final No growth in 5 days. 08/21/21 10:20 Urine, Clean Catch Urine Culture - Final Culture exhibits no growth. 08/21/21 10:10 Mucosa - Nasopharyngeal Influenza Types A,B Direct FA (SB) - Final 08/21/21 09:52 Nasal Secretion SARS-CoV-2 Antigen (Rapid) - Final SARS-CoV-2 (COVID 19) ABG Data ABG results: ABG 12/21/21 11:49 Specimen Type ART Sample Site R Brach pH 7.37 Bicarbonate Actual 25.2 Total CO2 27 Base Excess 0 O2 Saturation 89 L O2 % 80 ABG pCO2 44.0 ABG pO2 58 L Stephane Test Positive Respiration Rate 12 O2 Delivery Device BiPAP Vent Mode BiLevel POC PEEP 6 Clinical Comments 08/18 12 Radiography Diagnostic Testing: Radiology Impression Chest X-Ray 09/02/21 12:28 IMPRESSION: There is improved aeration of both lungs. Electronically Signed: Maxi Austin MD at 13:26 EST , Service support , Physical Exam Const Constitutional Narrative: Up in chair. Head hunger low. Does not establish eye contact. Does short shallow breaths and is tachypneic. Resp normal respiratory effort, no retractions, no use of accessory muscles and clear to auscultation bilaterally Cardio regular rate, regular rhythm, S1 normal heart sound and S2 normal heart sound GI normal to inspection, nondistended, normoactive bowel sounds, soft to palpation, non-tender and non-distended Extremity normal to inspection Psych Psych Narrative: Flat affect Assessment & Plan Assessment/Plan (1) Acute on chronic respiratory failure with hypoxia: (2) COVID-19: (3) Mycobacterium avium complex: PLAN: 1. acute on chronic hypoxic respiratory failure Worse wean oxygen as able encouraged utilization of pulm toilet Hold off on furosemide given worsening kidney function 2. Acute COVID 19 Unvaccinated completed dexamethasone sx began .2, quarantine through the not candidate for baricitinib did not receive remdesivir 3. MAC on azithromycin, ethambutol and rifampin. follow up with ID 4. Depression complicates care and recovery 5. pafib on rivaroxaban 6. DM2 uncontrolled on glargine and SSI anticipate improvement now that steroids are discontinued 7. VTE prophylaxis: anticoagulated. 8. CODE STATUS: Addressed with the patient and he insisted on being full code. Expressed the paradox to him that he wants to be full code and have us to everything for him but he does not want to help himself such as taking in a deep breath. He earlier told the night team of nurses that he just would rather just be intubated. My concern is that this patient gets intubated that he would be profoundly difficult to get off of ventilator given his profound lack of motivation. I have called his , daughter and son and have not heard back from any of them. I left a message on his 's number. Greater than 40 minutes of which greater than 30% of time was discussing the patient's about his breathing, treatment, CODE STATUS as well as trying get hold of his family. Charges/Coding Visit Charges Inpatient E&M: 09143 Subs Hosp L3
--- NOTE | 2021-09-02 16:14 | PN.HOSP_ITS ---
Hospitalist Note Patient has been taken off the BiPAP and put himself back on air Vo. When discussed with him and recommended hospice as I feel that ultimately him going on ventilator would not yield a ideal outcome for him. Explained that my concern is that he is already been here for 2 weeks without any significant improvement on top of his COVID-19, nontuberculous mycobacterium as well as pulmonary fibrosis. I recommended hospice to help with comfort and to alleviate his discomfort and what ever time that he has left. Explained that even with aggressive measures including intubation that ultimately I was concerned that may result in his or profound debility potentially requiring intermediate facility or the like if he were to survive. Patient states that he wishes to be hospice. I told him that would involve him changing his CODE STATUS to DNR comfort care which means no CPR and no intubation and he was fine with that. Told him that we would be de-escalating his medications and focus on comfort medications as well and he was okay with that as well. Did informed patient that his family was going to be coming into see him as irregardless of what he chose that it can be the last time they could speak with him. I will de-escalate his medications but keep his ticagrelor going as he has had recent PCI back in March. Greater than 40 minutes discussing advance care planning with the patient. Procedures Hospitalists Procedures: 13637 Advncd Care Plan 30 Min
[2021-09-02 17:06] LABS: Bedside Glucose 206 mg/dL (70-110)
[2021-09-02] MEDS: LORazepam 2 MG/ML Bottle 0.5 MG SL (17:46)
[2021-09-02] MEDS: Acetaminophen 325 MG Tablet 650 MG PO (17:46)
[2021-09-02] MEDS: 0.9% Saline Lock 10 ML Syringe IV (22:26)
[2021-09-03] VITALS (10 sets, daily range): BP systolic 97–114; BP diastolic 56–70; PULSE 73–89; RESP 28–38; TEMP 36.1–36.4; O2SAT 93–98
[2021-09-03 01:41] LABS: Bedside Glucose 258 mg/dL (70-110)
[2021-09-03] MEDS: Insulin Lispro 100 UNIT/ML INSULN.PEN SC ×2 (06:44→11:19)
[2021-09-03] MEDS: Propranolol 40 MG Tablet 80 MG PO (06:46)
[2021-09-03 07:21] LABS: Bedside Glucose 195 mg/dL (70-110)
[2021-09-03] MEDS: LORazepam 2 MG/ML Bottle 0.5 MG SL ×2 (08:38→15:34)
[2021-09-03] MEDS: TICAGRELOR 90 MG TABLET PO (08:38)
[2021-09-03] MEDS: guaiFENesin/D-Methorphan TAB.SR.12H 1 TABLET PO (08:38)
--- NOTE | 2021-09-03 08:55 | PCM.PN.INT ---
Assessment & Plan Assessment/Plan (1) Interstitial lung disease: (2) Mycobacterium avium complex: (3) Pneumonia due to 2019-nCoV: (4) Chronic respiratory failure with hypoxia: (5) CKD (chronic kidney disease) stage 3, GFR 30-59 ml/min: (6) RENEE (obstructive sleep apnea): (7) Paroxysmal atrial fibrillation: PLAN: RECOMMENDATIONS: 1. Okay to discontinue nontuberculous mycobacterial infection antibiotics given goals of therapy 2. Continue to wean oxygen for saturations greater than 90%. 3. Completed Decadron 4. Continue Xarelto per home regimen. 5. Diuretics as needed to maintain euvolemic state. 6. Await response to hospice discussion IMPRESSIONS: 1. Acute COVID-19 infection in the setting of restrictive lung disease secondary to MAC The patient's oxygenation status has been worsening over the course of his hospitalization. He remains on appropriate antimicrobial therapy to address his underlying MAC infection. In addition, the patient completed Decadron and continues his home Xarelto regimen. He was not a candidate for baricitinib. Continue current supportive measures including oxygen to maintain saturations at or above 90%. Continue intermittent use of diuretics to maintain euvolemic state. Patient with improvement in oxygenation through the day. Will await response/conclusion of hospice discussion. We will follow peripherally if comfort measures are elective. 2. Paroxysmal A. fib/PAD/renal artery stenosis/CKD/advanced age/diabetes mellitus Complicates care, management, recovery and prognosis. Continue home medications as indicated. Increase Lantus therapy This note was generated with [employer] dictation software. It may contain incorrect words, spelling, and punctuation that were not noted in checking the note before signing. Subjective Subjective Yesterday's events were reviewed. Patient states he feels subjectively improved compared to yesterday. Patient thought that Ativan made a significant improvement in his respiratory status. Patient still remains on high Airvo to maintain saturations, but saturations have improved to 98%. Patient feels he is ready to just be with my family. Objective Data Objective Data Vital Signs: Vital Signs Temp Pulse Resp BP Pulse Ox 36.3 C L 73 28 H 114/70 98 09/03/21 08:45 09/03/21 08:45 09/03/21 08:45 09/03/21 08:45 09/03/21 08:45 Oxygen Flow Rate (L/min) 60 Oxygen Delivery Method Airvo Weight: 63.9 kg Body Mass Index (BMI) 22.7 Intake & Output: Intake and Output for Last 24 Hours 09/01/21 09/02/21 09/03/21 23:59 23:59 23:59 Output Total 625 / 625 350 / 350 Balance -625 / -625 -350 / -350 Medical Nutrition Assessment Dietitian: Malnutrition Criteria Met Start: 08/27/21 16:22 Freq: Status: Active Protocol: Document 09/01/21 16:10 AG (Rec: 09/01/21 16:10 [id number]) Nutrition Malnutrition Evidence of Malnutrition Exists Yes Malnutrition (severe): Acute Illness/Injury Evidenced By Suboptimal Energy Intake ( Severe),Weight Loss (Severe) Intake Problem Inadequate Oral Intake Status Inactive Problem Clinical Problem Acute Disease or Injury Related Malnutrition Etiology severe, acute malnutrition r/t inadequate energy intake d/t acute illness Signs/Symptoms as evidenced by unintentional 5.8kg/8% wt loss x 11 days; estimated PO intake meeting < 50% of estimated energy needs >5 days Status Active Problem Recommendation Dietitian Recommendations/Changes continue regular diet, ensure clear TID w/ meals, and ensure pudding/yogurt w/ meals for additional calories/protein if consumed d/t acute malnutrition Lab / Micro Data Result Diagrams: 09/02/21 06:26 09/02/21 06:26 Labs: Laboratory Results - last 24 hr 08/30/21 05:37: Diff Path Review Reviewed 09/02/21 11:20: POC Glucose 295 H 09/02/21 17:00: POC Glucose 206 H 09/02/21 22:21: POC Glucose 258 H 09/03/21 06:40: POC Glucose 195 H Micro: Microbiology 08/21/21 10:20 Blood Culture (Wb) - Left Wrist Blood Culture - Final No growth in 5 days. 08/21/21 09:52 Blood Culture (Wb) - Left Forearm Blood Culture - Final No growth in 5 days. 08/21/21 10:20 Urine, Clean Catch Urine Culture - Final Culture exhibits no growth. 08/21/21 10:10 Mucosa - Nasopharyngeal Influenza Types A,B Direct FA (SB) - Final 08/21/21 09:52 Nasal Secretion SARS-CoV-2 Antigen (Rapid) - Final SARS-CoV-2 (COVID 19) ABG Data ABG results: ABG 09/02/21 11:49 Specimen Type ART Sample Site R Brach pH 7.37 Bicarbonate Actual 25.2 Total CO2 27 Base Excess 0 O2 Saturation 89 L O2 % 80 ABG pCO2 44.0 ABG pO2 58 L Stephane Test Positive Respiration Rate 12 O2 Delivery Device BiPAP Vent Mode BiLevel POC PEEP 6 Clinical Comments 08/18 12 Radiography Diagnostic Testing: Radiology Impression Chest X-Ray 09/02/21 12:28 IMPRESSION: There is improved aeration of both lungs. Electronically Signed: Maxi Austin MD at 13:26 EST , Service support , Physical Exam Const alert Constitutional Narrative: Sitting in the bed with glasses in place General Appearance: cooperative and ill appearing HEENT normocephalic and head/scalp atraumatic Eyes PERRL, EOMs intact bilaterally and conjunctivae normal Neck supple General: trachea midline Chest inspection of chest normal Resp Auscultation: rales and diminished lung sounds Cardio regular rate and regular rhythm GI normal to inspection, nondistended, normoactive bowel sounds Extremity no clubbing, cyanosis or edema Skin no rashes or lesions noted Neuro CN's II-XII intact bilaterally, moves all extremities and no focal motor deficits Psych Mood & Affect: flat affect Charges/Coding Visit Charges Inpatient E&M: 16282 Subs Hosp L2
[2021-09-03 11:31] LABS: Bedside Glucose 403 mg/dL (70-110)
--- NOTE | 2021-09-03 12:43 | CASEMGMT ---
Social Work Note SANDOR spoke with Shamar, patient liaison from [facility]. Shamar states the family was under the impression that pt would be admitted to the inpatient hospice unit. Shamar asked about pt's symptoms. SANDOR reviewed pt's chart, pt is on Airvo settings currently. Shamar states physician here would need to complete doctor to doctor with [facility] doctor and that number is [phone]. ICU nurse station number for nurse to nurse is [phone]. Shamar states [facility] will also need discharge summary and medication list at discharge. Yareli Oconnell BLOCKER POLISHING, DRUG AND ALCOHOL COUNSELOR
--- NOTE | 2021-09-03 14:04 | PCM.DC ---
Discharge Instructions Diet Discharge Diet: No restrictions Follow Up Care Test Results: Test results from this visit will be discussed in further detail at your follow-up appointment, if applicable. Discharge Plan Admission Admit Date/Time: 08/22/21 16:04 Primary Reason for Your Visit: COVID 19 Attending Provider: Prakash Pereira Primary Care Provider: Jonny Serrato Consulting Providers: Triston Andre ; Derrick Morales ; Paz Moreira SENIOR WINDOWS SYSTEMS ADMINISTRATOR ; Herve Lo ; Libertad Shrestha ; Jareth Min ; Melvi Ty ; Cathie Gramajo ; Vanessa Alba ; Melvina Mora SENIOR WINDOWS SYSTEMS ADMINISTRATOR Discharge Orders/Prescriptions Prescriptions: New lidocaine HCl [Lidocaine Viscous] 2 % Solution 5 ml PO 4X/DAY PRN (Reason: stomatitis) Qty: 0 RF: 0 atropine 1 % Drops 4 drp sublingual Q1H PRN PRN (Reason: Secretions) Qty: 0 RF: 0 Mucus DM 30-600 mg Tablet Extended Release 12 Hr 1 tab PO BID Qty: 0 RF: 0 hyoscyamine sulfate 0.125 mg Tablet, Sublingual 0.125 mg PO/SL Q4H PRN PRN (Reason: CONGESTION) Qty: 0 RF: 0 haloperidol lactate 2 mg/mL Concentrate 0.5 mg PO/SL Q3H PRN PRN (Reason: Nausea/Vomiting) Qty: 0 RF: 0 lorazepam 2 mg/mL Concentrate 0.5 mg sublingual Q4H PRN PRN (Reason: Agitation) Qty: 0 RF: 0 Continued acetaminophen 325 MG tablet 650 mg PO Q4H PRN PRN (Reason: fever, pain) RF: 0 ticagrelor 90 mg Tablet 90 mg PO BID RF: 0 ProAir HFA 90 mcg/actuation HFA aerosol inhaler 2 puff INHALATION Q6H PRN (Reason: Sob &/Or Wheezing) Qty: 8.5 RF: 6 Discontinued rifampin 300 mg capsule 600 mg PO MOWEFR RF: 0 azithromycin 500 mg tablet 500 mg PO MOWEFR RF: 0 ethambutol 400 mg tablet 1,600 mg PO MOWEFR RF: 0 propranolol 80 MG tablet 80 mg PO TID RF: 0 amlodipine 2.5 MG tablet 2.5 mg PO DAILY RF: 0 rivaroxaban 15 MG tablet 15 mg PO DINNER RF: 0 Lantus U-100 Insulin 100 unit/mL solution 18 unit SUBCUT QHS RF: 0 omeprazole 40 mg capsule,delayed release(DR/EC) 40 mg PO DAILY RF: 0 losartan 25 mg tablet 25 mg PO DAILY RF: 0 atorvastatin 40 mg Tablet 40 mg PO QHS Qty: 90 RF: 0 insulin lispro [Humalog U-100 Insulin] 100 unit/mL Solution 25 unit SUBCUT TIDCM RF: 0 ferrous sulfate [FeroSul] 325 mg (65 mg iron) tablet 325 mg PO BID Qty: 60 RF: 0 Referrals / Follow Up: Jonny Serrato MD [Primary Care Provider] - Disposition Disposition (needs filled in before D/C Order can be placed): Hospice in Medical Facility
--- NOTE | 2021-09-03 14:09 | PCM.DC.SUM ---
Providers Date of Admission: 08/22/21 Primary Care Physician: Dr. Jonny Serrato MD Consultations 08/21/21 17:04 Consult: Screen And Cyclone Repairer / Pulmonary Medicine Routine Consulting Provider: [facility] Reason for Consult: COVID and MAC infection EMERGENT Consult: No MD Notified: Yes Date Notified: 08/21/21 Time Notified: 17:09 Method of Notification: Text 08/25/21 17:51 Consult: Infectious Disease Routine Consulting Provider: Herve Lo Reason for Consult: Needs baricitinib. COVID-19On 50 L oxygen. MAC history EMERGENT Consult: No Notified: Yes Date Notified: 08/25/21 Time Notified: 18:55 Method of Notification: Text 09/02/21 16:06 Consult: Hospice / Palliative Care Routine Consulting Provider: [facility] Reason for Consult: covid EMERGENT Consult: No MD Notified: Yes Date Notified: 09/02/21 Time Notified: 16:06 Method of Notification: office Reason For Visit: COVID-19 Diagnosis Discharge Diagnosis (1) Interstitial lung disease: Status: Acute Code(s): J84.9 - Interstitial pulmonary disease, unspecified (2) Mycobacterium avium complex: Status: Acute Code(s): A31.0 - Pulmonary mycobacterial infection (3) Pneumonia due to 2019-nCoV: Status: Acute Code(s): U07.1 - COVID-19; J12.82 - Pneumonia due to coronavirus disease 2019 (4) Chronic respiratory failure with hypoxia: Status: Chronic Code(s): J96.11 - Chronic respiratory failure with hypoxia (5) CKD (chronic kidney disease) stage 3, GFR 30-59 ml/min: Status: Chronic Code(s): N18.3 - Chronic kidney disease, stage 3 (moderate) (6) RENEE (obstructive sleep apnea): Status: Chronic Code(s): G47.33 - Obstructive sleep apnea (adult) (pediatric) (7) Paroxysmal atrial fibrillation: Status: Acute Code(s): I48.0 - Paroxysmal atrial fibrillation Medications at Discharge Home Medications acetaminophen 650 mg PO Q4H PRN PRN tab 05/17/17 albuterol sulfate 90 mcg/actuation aerosol inhaler 2 puff INHALATION Q6H PRN #8.5 g 05/09/21 ticagrelor 90 mg PO BID 08/21/21 atropine 4 drp SUBLINGUAL Q1H PRN PRN #0 ml 09/03/21 dextromethorphan-guaifenesin [Mucus DM] 1 tab PO BID #0 tab 09/03/21 haloperidol lactate 0.5 mg PO/SL Q3H PRN PRN #0 ml 09/03/21 hyoscyamine sulfate 0.125 mg PO/SL Q4H PRN PRN #0 tab 09/03/21 lidocaine HCl [Lidocaine Viscous] 5 ml PO 4X/DAY PRN #0 ml 09/03/21 lorazepam 0.5 mg SUBLINGUAL Q4H PRN PRN #0 ml 09/03/21 Hospital Course Operations None Procedures None Summary of Care Provided Minutes Spent on Discharge: 40 Hospital Course: This is a 68-year-old male presents with shortness of breath. Patient had COVID-19 pneumonia on top of nontuberculosis mycobacterium. Patient's course was complicated by lack of significant improvement. Patient remained full code until had very lengthy conversation with the patient on the . Patient was expressing desire to go onto a ventilator. Expressed my concern about him going out to a ventilator given his lack of motivation and his frailty that his quality of life, if he were to survive it would likely be poor. I did encourage comfort measures for him given his overall deteriorated state. He was in agreement and met with hospice today. Plan is for the patient to go to the inpatient hospice center today. Earlier, I spoke with Dr. Min and explained patient's case with him. Physical Exam Const alert Resp normal respiratory effort and no retractions Resp Narrative: coarse breath sounds. Cardio regular rate, regular rhythm, S1 normal heart sound and S2 normal heart sound GI normal to inspection, nondistended, normoactive bowel sounds Medical Records Data Medical Nutrition Assessment Dietitian: Malnutrition Criteria Met Start: 08/27/21 16:22 Freq: Status: Active Protocol: Document 09/01/21 16:10 AG (Rec: 09/01/21 16:10 [id number]) Nutrition Malnutrition Evidence of Malnutrition Exists Yes Malnutrition (severe): Acute Illness/Injury Evidenced By Suboptimal Energy Intake ( Severe),Weight Loss (Severe) Intake Problem Inadequate Oral Intake Status Inactive Problem Clinical Problem Acute Disease or Injury Related Malnutrition Etiology severe, acute malnutrition r/t inadequate energy intake d/t acute illness Signs/Symptoms as evidenced by unintentional 5.8kg/8% wt loss x 11 days; estimated PO intake meeting < 50% of estimated energy needs >5 days Status Active Problem Recommendation Dietitian Recommendations/Changes continue regular diet, ensure clear TID w/ meals, and ensure pudding/yogurt w/ meals for additional calories/protein if consumed d/t acute malnutrition Weight / BMI Weight Weight: 63.9 kg Body Mass Index (BMI) 22.7 ABG / Lab / Microbiology Data Result Diagrams: 09/02/21 06:26 09/02/21 06:26 Laboratory: Laboratory Results - last 24 hr 09/02/21 17:00: POC Glucose 206 H 09/02/21 22:21: POC Glucose 258 H 09/03/21 06:40: POC Glucose 195 H 09/03/21 11:19: POC Glucose 403 H Microbiology: Microbiology 08/21/21 10:20 Blood Culture (Wb) - Left Wrist Blood Culture - Final No growth in 5 days. 08/21/21 09:52 Blood Culture (Wb) - Left Forearm Blood Culture - Final No growth in 5 days. 08/21/21 10:20 Urine, Clean Catch Urine Culture - Final Culture exhibits no growth. 08/21/21 10:10 Mucosa - Nasopharyngeal Influenza Types A,B Direct FA (SB) - Final 08/21/21 09:52 Nasal Secretion SARS-CoV-2 Antigen (Rapid) - Final SARS-CoV-2 (COVID 19) D/C Instructions Discharge Diet: No restrictions Meaningful Use Info Meaningful Use Diagnoses (Choose all that apply): None applicable Discharge Plan Admission Admit Date/Time: 08/22/21 16:04 Primary Reason for Your Visit: COVID 19 Attending Provider: Prakash Pereira Primary Care Provider: Jonny Serrato Consulting Providers: Triston Andre ; Derrick Morales ; Paz Moreira RN PEDIATRIC ICU ; Herve Lo ; Libertad Shrestha ; Jareth Min ; Melvi Ty ; Cathie Gramajo ; Vanessa Alba ; Melvina Mora RN PEDIATRIC ICU Discharge Orders/Prescriptions Prescriptions: New lidocaine HCl [Lidocaine Viscous] 2 % Solution 5 ml PO 4X/DAY PRN (Reason: stomatitis) Qty: 0 RF: 0 atropine 1 % Drops 4 drp sublingual Q1H PRN PRN (Reason: Secretions) Qty: 0 RF: 0 Mucus DM 30-600 mg Tablet Extended Release 12 Hr 1 tab PO BID Qty: 0 RF: 0 hyoscyamine sulfate 0.125 mg Tablet, Sublingual 0.125 mg PO/SL Q4H PRN PRN (Reason: CONGESTION) Qty: 0 RF: 0 haloperidol lactate 2 mg/mL Concentrate 0.5 mg PO/SL Q3H PRN PRN (Reason: Nausea/Vomiting) Qty: 0 RF: 0 lorazepam 2 mg/mL Concentrate 0.5 mg sublingual Q4H PRN PRN (Reason: Agitation) Qty: 0 RF: 0 Continued acetaminophen 325 MG tablet 650 mg PO Q4H PRN PRN (Reason: fever, pain) RF: 0 ticagrelor 90 mg Tablet 90 mg PO BID RF: 0 ProAir HFA 90 mcg/actuation HFA aerosol inhaler 2 puff INHALATION Q6H PRN (Reason: Sob &/Or Wheezing) Qty: 8.5 RF: 6 Discontinued rifampin 300 mg capsule 600 mg PO MOWEFR RF: 0 azithromycin 500 mg tablet 500 mg PO MOWEFR RF: 0 ethambutol 400 mg tablet 1,600 mg PO MOWEFR RF: 0 propranolol 80 MG tablet 80 mg PO TID RF: 0 amlodipine 2.5 MG tablet 2.5 mg PO DAILY RF: 0 rivaroxaban 15 MG tablet 15 mg PO DINNER RF: 0 Lantus U-100 Insulin 100 unit/mL solution 18 unit SUBCUT QHS RF: 0 omeprazole 40 mg capsule,delayed release(DR/EC) 40 mg PO DAILY RF: 0 losartan 25 mg tablet 25 mg PO DAILY RF: 0 atorvastatin 40 mg Tablet 40 mg PO QHS Qty: 90 RF: 0 insulin lispro [Humalog U-100 Insulin] 100 unit/mL Solution 25 unit SUBCUT TIDCM RF: 0 ferrous sulfate [FeroSul] 325 mg (65 mg iron) tablet 325 mg PO BID Qty: 60 RF: 0 Referrals / Follow Up: Jonny Serrato MD [Primary Care Provider] - Disposition Disposition (needs filled in before D/C Order can be placed): Hospice in Medical Facility Charges/Coding Visit Charges Inpatient E&M: 71869 Disch Hosp
[2021-09-03] MEDS: Menthol/Lanolin/Calamine/Znox 113 GM Tube 1 APPLIC TOPICAL (14:11)
--- NOTE | 2021-09-03 15:18 | NURSING ---
report called to inpatient hospice unit for discharge. spoke with ANGIE Miles
--- NOTE | 2021-09-03 16:07 | CASEMGMT ---
Social Work Note SW faxed discharge paperwork to [facility]. Yareli Oconnell MANGANESE WHEELER, HEALTHCARE ECONOMICS CONSULTANT
== END 2021-09-03 15:50 | disposition hospice, inpatient (51) | DRG 177 ==
LOC: ED 14:07 → MS3 15:44
PROVIDERS: Internal Medicine; Internal Medicine Critical Care Medicine; Admitting Provider Internal Medicine; Emergency Provider Emergency Medicine; PCP Internal Medicine
DX: U07.1 COVID-19 (principal); J12.82 Pneumonia due to coronavirus disease 2019; J15.8 Pneumonia due to other specified bacteria; J96.21 Acute and chronic respiratory failure with hypoxia; E43 Unspecified severe protein-calorie malnutrition; J44.0 Chronic obstructive pulmonary disease with (acute) lower respiratory infection; A31.0 Pulmonary mycobacterial infection; D69.6 Thrombocytopenia, unspecified; J84.10 Pulmonary fibrosis, unspecified; R53.81 Other malaise; E83.39 Other disorders of phosphorus metabolism; E11.22 Type 2 diabetes mellitus with diabetic chronic kidney disease; E11.51 Type 2 diabetes mellitus with diabetic peripheral angiopathy without gangrene; E78.5 Hyperlipidemia, unspecified; F32.A Depression, unspecified; F41.9 Anxiety disorder, unspecified; G25.81 Restless legs syndrome; I12.9 Hypertensive chronic kidney disease with stage 1 through stage 4 chronic kidney disease, or unspecified chronic kidney disease; N18.31 Chronic kidney disease, stage 3a; I25.10 Atherosclerotic heart disease of native coronary artery without angina pectoris; I48.0 Paroxysmal atrial fibrillation; I25.2 Old myocardial infarction; I70.1 Atherosclerosis of renal artery; I71.2 Thoracic aortic aneurysm, without rupture; K21.9 Gastro-esophageal reflux disease without esophagitis; G47.33 Obstructive sleep apnea (adult) (pediatric); M19.90 Unspecified osteoarthritis, unspecified site; G43.909 Migraine, unspecified, not intractable, without status migrainosus; Z86.73 Personal history of transient ischemic attack (TIA), and cerebral infarction without residual deficits; Z95.5 Presence of coronary angioplasty implant and graft; Z99.81 Dependence on supplemental oxygen; Z79.4 Long term (current) use of insulin; Z79.01 Long term (current) use of anticoagulants; Z79.899 Other long term (current) drug therapy; Z87.891 Personal history of nicotine dependence; Z68.22 Body mass index [BMI] 22.0-22.9, adult
CPT/HCPCS: 36415; 36600; 71045; 71250; 80048; 80053; 81001; 82803; 82947; 82962; 83605; 83735; 84100; 85025; 85610; 85730; 87040; 87086; 87426; 87804; 93005; 94002; 94660; 94762; 97161; 97166; 97803; 99251; 99285; J7050; A4216; G0463; J1940; J2405